=== PATIENT | male | born 1940 | race Caucasian/White ===

== ENCOUNTER 2016-05-04 | Inpatient (IN) | payer MEDICARE, OTHER ==
[~2016-05-04] VITALS: Ht 157.5 cm; Wt 50.8 kg
[~2016-05-04] MED LIST: ACET-868 GT; ALBU2.5V13 NEB; ALLA266C2 TP; AMIN30LI2 GT; ASCO500T10 PO; ASPI-807 GT; CHOL4PAC9 GT; HYDR1SOL TP; IPRA0.2S9 IH; MAGN400O6 GT; MORP100S3 GT; MULT-24 GT; MUPI22OI7 TP; NUTR250L48 GT; PANT40SU2 GT; POLY15DR57 EACHEYE; POLY17PO4 GT; SIME125T52 GT; ZINC220C8 GT
--- NOTE | 2016-05-06 08:30 | NUR ---
Please see resident's previous account [id number] for all assessments and nurses notes. Originally admitted on 02/01/16.
[2016-05-06] MEDS ORDERED: MAGNESIUM HYDROXIDE 30 ML UDC GT PRN (09:57)
[2016-05-06] MEDS ORDERED: SUCRALFATE 1 G/10 ML UDC GT SCH (09:57)
[2016-05-06] MEDS ORDERED: ALBUTEROL FS 2.5 MG/0.5 ML VIAL.NEB NEB SCH (09:57)
[2016-05-06] MEDS ORDERED: IPRATROPIUM NEB FS 0.5 MG/2.5 ML AMPUL.NEB IH SCH (09:57)
[2016-05-06] MEDS ORDERED: HYDROGEN PEROXIDE 480 ML BOTTLE TP PRN (09:57)
[2016-05-06] MEDS ORDERED: ONDANSETRON 4 MG TAB.RAPDIS GT PRN (09:57)
[2016-05-06] MEDS ORDERED: ACETYLCYSTEINE 10% SOLN 400 MG/4 ML VIAL NEB SCH (09:57)
--- NOTE | 2016-05-06 11:13 | NUR ---
Please see resident's previous account [id number] for Social Service assessments, evaluations and notes.
[2016-05-06 12:20] VITALS: BP 110/70
[2016-05-06] MEDS: POLYVINYL ALCOHOL 15 ML BOTTLE EACHEYE SCH ×2 (13:00→21:57)
[2016-05-06] MEDS: SUCRALFATE 1 G/10 ML UDC GT SCH ×3 (13:00→21:57)
[2016-05-06] MEDS: ALBUTEROL FS 2.5 MG/0.5 ML VIAL.NEB NEB SCH ×2 (13:34→20:06)
[2016-05-06] MEDS: IPRATROPIUM NEB FS 0.5 MG/2.5 ML AMPUL.NEB IH SCH ×2 (13:34→20:06)
[2016-05-06] MEDS: ACETYLCYSTEINE 10% SOLN 400 MG/4 ML VIAL NEB SCH ×2 (15:12→23:46)
[2016-05-06] MEDS: CHLORHEXIDINE GLUCONATE 15 ML UDC MM SCH (17:05)
[2016-05-06] MEDS: FIBERSOURCE HN 1,000 ML BOTTLE GT PRN (17:29)
[2016-05-06 19:52] VITALS: BP 107/69
[2016-05-06] MEDS: PANTOPRAZOLE 40 MG/PACK PACK GT SCH (21:57)
[2016-05-06] MEDS: HYDROGEN PEROXIDE 480 ML BOTTLE TP SCH (21:58)
[2016-05-06] MEDS: Z GUARD REMEDY 4 OZ OINT TP SCH (21:58)
[2016-05-07] MEDS: SUCRALFATE 1 G/10 ML UDC GT SCH ×6 (00:03→20:33)
[2016-05-07] MEDS: ALBUTEROL FS 2.5 MG/0.5 ML VIAL.NEB NEB SCH ×4 (01:30→19:33)
[2016-05-07] MEDS: IPRATROPIUM NEB FS 0.5 MG/2.5 ML AMPUL.NEB IH SCH ×4 (01:30→19:33)
[2016-05-07] MEDS: ACETYLCYSTEINE 10% SOLN 400 MG/4 ML VIAL NEB SCH ×3 (01:50→15:13)
--- NOTE | 2016-05-07 02:15 | NUR ---
During repositioning TANK SETTER advised resident keeps turning back to supine position. I advised resident of importance to offload sacrum.Checked back and sacrum.No change noted.placed pillow underneath buttock.Will monitor for skin issues.Left with all needs met.Air mattress functioning and intact.
[2016-05-07] MEDS: POLYVINYL ALCOHOL 15 ML BOTTLE EACHEYE SCH ×3 (05:00→20:33)
[2016-05-07 08:18] VITALS: BP 110/100
[2016-05-07] MEDS: ASCORBIC ACID 500 MG TABLET GT SCH (09:59)
[2016-05-07] MEDS: MULTIVITAMINS,THERAGRAN 1 UDTAB TABLET GT SCH (09:59)
[2016-05-07] MEDS: CHLORHEXIDINE GLUCONATE 15 ML UDC MM SCH ×2 (09:59→16:53)
[2016-05-07] MEDS: Z GUARD REMEDY 4 OZ OINT TP SCH ×2 (09:59→20:33)
[2016-05-07] MEDS: PANTOPRAZOLE 40 MG/PACK PACK GT SCH ×2 (09:59→20:33)
[2016-05-07] MEDS: PROSOURCE / PROSTAT (PYXIS) 30 ML UDC GT SCH (09:59)
[2016-05-07] MEDS: HYDROGEN PEROXIDE 480 ML BOTTLE TP SCH ×2 (09:59→20:33)
[2016-05-07 20:00] VITALS: BP 109/69
[2016-05-07] MEDS: FIBERSOURCE HN 1,000 ML BOTTLE GT PRN (20:33)
[2016-05-08] MEDS: SUCRALFATE 1 G/10 ML UDC GT SCH ×6 (00:45→20:28)
[2016-05-08] MEDS: IPRATROPIUM NEB FS 0.5 MG/2.5 ML AMPUL.NEB IH SCH ×4 (02:18→19:47)
[2016-05-08] MEDS: ALBUTEROL FS 2.5 MG/0.5 ML VIAL.NEB NEB SCH ×4 (02:18→19:47)
[2016-05-08] MEDS: POLYVINYL ALCOHOL 15 ML BOTTLE EACHEYE SCH ×3 (05:24→20:28)
[2016-05-08 07:39] VITALS: BP 99/60
[2016-05-08] MEDS: ACETYLCYSTEINE 10% SOLN 400 MG/4 ML VIAL NEB SCH ×3 (08:01→23:13)
[2016-05-08] MEDS: ASCORBIC ACID 500 MG TABLET GT SCH (09:47)
[2016-05-08] MEDS: PANTOPRAZOLE 40 MG/PACK PACK GT SCH ×2 (09:47→20:28)
[2016-05-08] MEDS: CHLORHEXIDINE GLUCONATE 15 ML UDC MM SCH ×2 (09:47→17:00)
[2016-05-08] MEDS: PROSOURCE / PROSTAT (PYXIS) 30 ML UDC GT SCH (09:47)
[2016-05-08] MEDS: MULTIVITAMINS,THERAGRAN 1 UDTAB TABLET GT SCH (09:47)
[2016-05-08] MEDS: HYDROGEN PEROXIDE 480 ML BOTTLE TP SCH ×2 (09:48→20:28)
[2016-05-08] MEDS: Z GUARD REMEDY 4 OZ OINT TP SCH ×2 (09:48→20:30)
[2016-05-08] MEDS: MORPHINE SULFATE SOLN CONCENTRATED 20 MG/ML GT PRN (19:48)
[2016-05-08 20:14] VITALS: BP 107/69
--- NOTE | 2016-05-08 20:32 | NUR ---
Pt seen by Isidra Ayala,INSURANCE CHECKER no new order.
[2016-05-09] MEDS: SUCRALFATE 1 G/10 ML UDC GT SCH ×6 (00:11→21:53)
[2016-05-09] MEDS: ALBUTEROL FS 2.5 MG/0.5 ML VIAL.NEB NEB SCH ×4 (01:43→19:20)
[2016-05-09] MEDS: IPRATROPIUM NEB FS 0.5 MG/2.5 ML AMPUL.NEB IH SCH ×4 (01:43→19:20)
[2016-05-09] MEDS: POLYVINYL ALCOHOL 15 ML BOTTLE EACHEYE SCH ×3 (05:17→21:53)
[2016-05-09] MEDS: ACETYLCYSTEINE 10% SOLN 400 MG/4 ML VIAL NEB SCH ×3 (07:08→22:45)
[2016-05-09 07:52] VITALS: BP_SYST 95; BP_SYST 96; BP_DIAS 62; BP_DIAS 69
[2016-05-09] MEDS: ASCORBIC ACID 500 MG TABLET GT SCH (09:30)
[2016-05-09] MEDS: PANTOPRAZOLE 40 MG/PACK PACK GT SCH ×2 (09:30→21:53)
[2016-05-09] MEDS: PROSOURCE / PROSTAT (PYXIS) 30 ML UDC GT SCH (09:30)
[2016-05-09] MEDS: HYDROGEN PEROXIDE 480 ML BOTTLE TP SCH ×2 (09:30→21:53)
[2016-05-09] MEDS: Z GUARD REMEDY 4 OZ OINT TP SCH ×2 (09:30→21:53)
[2016-05-09] MEDS: MULTIVITAMINS,THERAGRAN 1 UDTAB TABLET GT SCH (09:30)
[2016-05-09] MEDS: CHLORHEXIDINE GLUCONATE 15 ML UDC MM SCH ×2 (09:30→16:28)
[2016-05-09 19:44] VITALS: BP 115/70
[2016-05-09] MEDS: MORPHINE SULFATE SOLN CONCENTRATED 20 MG/ML GT PRN (21:54)
[2016-05-10] MEDS: SUCRALFATE 1 G/10 ML UDC GT SCH ×6 (00:09→21:35)
[2016-05-10] MEDS: ALBUTEROL FS 2.5 MG/0.5 ML VIAL.NEB NEB SCH ×4 (00:54→19:24)
[2016-05-10] MEDS: IPRATROPIUM NEB FS 0.5 MG/2.5 ML AMPUL.NEB IH SCH ×4 (00:54→19:24)
[2016-05-10] MEDS: POLYVINYL ALCOHOL 15 ML BOTTLE EACHEYE SCH ×3 (05:58→21:35)
[2016-05-10 07:34] VITALS: BP 129/79
[2016-05-10] MEDS: ACETYLCYSTEINE 10% SOLN 400 MG/4 ML VIAL NEB SCH ×3 (07:54→22:32)
[2016-05-10] MEDS: ASCORBIC ACID 500 MG TABLET GT SCH (08:52)
[2016-05-10] MEDS: PANTOPRAZOLE 40 MG/PACK PACK GT SCH ×2 (08:52→21:35)
[2016-05-10] MEDS: PROSOURCE / PROSTAT (PYXIS) 30 ML UDC GT SCH (08:52)
[2016-05-10] MEDS: MULTIVITAMINS,THERAGRAN 1 UDTAB TABLET GT SCH (08:52)
[2016-05-10] MEDS: CHLORHEXIDINE GLUCONATE 15 ML UDC MM SCH ×2 (08:53→17:06)
[2016-05-10] MEDS: HYDROGEN PEROXIDE 480 ML BOTTLE TP SCH ×2 (09:00→21:35)
[2016-05-10] MEDS: Z GUARD REMEDY 4 OZ OINT TP SCH ×2 (09:00→21:36)
[2016-05-10 20:01] VITALS: BP 92/59
[2016-05-10] MEDS: MORPHINE SULFATE SOLN CONCENTRATED 20 MG/ML GT PRN (21:53)
[2016-05-10] MEDS: FIBERSOURCE HN 1,000 ML BOTTLE GT PRN (21:53)
[2016-05-11] MEDS: SUCRALFATE 1 G/10 ML UDC GT SCH ×6 (01:00→20:29)
[2016-05-11] MEDS: ACETYLCYSTEINE 10% SOLN 400 MG/4 ML VIAL NEB SCH ×3 (01:26→14:46)
[2016-05-11] MEDS: IPRATROPIUM NEB FS 0.5 MG/2.5 ML AMPUL.NEB IH SCH ×4 (01:47→19:24)
[2016-05-11] MEDS: ALBUTEROL FS 2.5 MG/0.5 ML VIAL.NEB NEB SCH ×4 (01:47→19:24)
[2016-05-11] MEDS: POLYVINYL ALCOHOL 15 ML BOTTLE EACHEYE SCH ×3 (05:27→20:29)
--- NOTE | 2016-05-11 07:49 | NUR ---
RT PATIENT RECEIVED TRACHED ON MECHANICAL VENTILATOR WITH SETTINGS SET PER MD RACHEAL OLIVERA. VENT ALARMS CHECKED + AUDIBLE. VENT PLUGGED INTO RED OUTLET. CUFF PRESSURE CHECKED FROG CATCHER. RESP TX'S GIVEN ORDERED RACHEAL OLIVERA. TRACH SECURE AND IN PROPER POSITION. SX'D WITH MOD AMT PALE SEMITHICK SECRETIONS. B/S DIM RHONCHI. PATIENT IN NO DISTRESS OR SOB AT THIS TIME. BACK UP TRACH AND AMBU BAG AT [facility]. CONTINUE CURRENT PLAN OF RESP CARE. Addendum: 05/11/16 at 0902 by DIALLO SEGURA RT Amended: Links added.
[2016-05-11 08:07] VITALS: BP 108/69
[2016-05-11] MEDS: ASCORBIC ACID 500 MG TABLET GT SCH (09:00)
[2016-05-11] MEDS: Z GUARD REMEDY 4 OZ OINT TP SCH ×2 (09:00→20:29)
[2016-05-11] MEDS: HYDROGEN PEROXIDE 480 ML BOTTLE TP SCH ×2 (09:00→20:29)
[2016-05-11] MEDS: PROSOURCE / PROSTAT (PYXIS) 30 ML UDC GT SCH (09:00)
[2016-05-11] MEDS: MULTIVITAMINS,THERAGRAN 1 UDTAB TABLET GT SCH (09:00)
[2016-05-11] MEDS: PANTOPRAZOLE 40 MG/PACK PACK GT SCH ×2 (09:00→20:29)
[2016-05-11] MEDS: CHLORHEXIDINE GLUCONATE 15 ML UDC MM SCH ×2 (09:00→16:42)
--- NOTE | 2016-05-11 15:30 | NUR ---
RT END OF SHIFT SUMMARY: PATIENT REMAINED STABLE THROUGHOUT SHIFT NO SOB OR DISTRESS Addendum: 05/12/16 at 0820 by DIALLO SEGURA RT Amended: Links added.
[2016-05-11] MEDS: FIBERSOURCE HN 1,000 ML BOTTLE GT PRN (16:43)
[2016-05-11 20:19] VITALS: BP 131/69
[2016-05-12] MEDS: SUCRALFATE 1 G/10 ML UDC GT SCH ×6 (00:34→20:18)
[2016-05-12] MEDS: IPRATROPIUM NEB FS 0.5 MG/2.5 ML AMPUL.NEB IH SCH ×4 (01:26→19:33)
[2016-05-12] MEDS: ALBUTEROL FS 2.5 MG/0.5 ML VIAL.NEB NEB SCH ×4 (01:26→19:33)
[2016-05-12] MEDS: POLYVINYL ALCOHOL 15 ML BOTTLE EACHEYE SCH ×3 (05:38→20:18)
[2016-05-12] MEDS: ACETYLCYSTEINE 10% SOLN 400 MG/4 ML VIAL NEB SCH ×3 (07:40→23:34)
[2016-05-12 08:09] VITALS: BP 121/80
--- NOTE | 2016-05-12 08:18 | NUR ---
RT PATIENT RECEIVED TRACHED ON MECHANICAL VENTILATOR WITH SETTINGS SET PER MD RACHEAL OLIVERA. VENT ALARMS CHECKED + AUDIBLE. VENT PLUGGED INTO RED OUTLET. CUFF PRESSURE CHECKED FLEET OPERATIONS MANAGER. RESP TX'S GIVEN ORDERED RACHEAL OLIVERA. TRACH SECURE AND IN PROPER POSITION. SX'D WITH MOD AMT PALE SEMITHICK SECRETIONS. B/S DIM RHONCHI. PATIENT IN NO DISTRESS OR SOB AT THIS TIME. BACK UP TRACH AND AMBU BAG AT [facility]. CONTINUE CURRENT PLAN OF RESP CARE. Addendum: 05/12/16 at 0818 by DIALLO SEGURA RT Amended: Links added.
[2016-05-12] MEDS: CHLORHEXIDINE GLUCONATE 15 ML UDC MM SCH ×2 (09:00→17:30)
[2016-05-12] MEDS: ASCORBIC ACID 500 MG TABLET GT SCH (09:13)
[2016-05-12] MEDS: MULTIVITAMINS,THERAGRAN 1 UDTAB TABLET GT SCH (09:13)
[2016-05-12] MEDS: PROSOURCE / PROSTAT (PYXIS) 30 ML UDC GT SCH (09:13)
[2016-05-12] MEDS: PANTOPRAZOLE 40 MG/PACK PACK GT SCH ×2 (09:13→20:18)
[2016-05-12] MEDS: HYDROGEN PEROXIDE 480 ML BOTTLE TP SCH ×2 (11:15→20:18)
[2016-05-12] MEDS: Z GUARD REMEDY 4 OZ OINT TP SCH ×2 (11:15→20:18)
[2016-05-12] MEDS: FIBERSOURCE HN 1,000 ML BOTTLE GT PRN (20:18)
[2016-05-12 20:25] VITALS: BP 124/78
[2016-05-13] MEDS: SUCRALFATE 1 G/10 ML UDC GT SCH ×6 (00:40→20:27)
[2016-05-13] MEDS: IPRATROPIUM NEB FS 0.5 MG/2.5 ML AMPUL.NEB IH SCH ×4 (00:52→19:30)
[2016-05-13] MEDS: ALBUTEROL FS 2.5 MG/0.5 ML VIAL.NEB NEB SCH ×4 (00:52→19:30)
[2016-05-13] MEDS: POLYVINYL ALCOHOL 15 ML BOTTLE EACHEYE SCH ×3 (05:40→20:27)
[2016-05-13] MEDS: ACETYLCYSTEINE 10% SOLN 400 MG/4 ML VIAL NEB SCH ×3 (07:26→23:30)
[2016-05-13 08:11] VITALS: BP 112/66
[2016-05-13] MEDS: PROSOURCE / PROSTAT (PYXIS) 30 ML UDC GT SCH (09:07)
[2016-05-13] MEDS: MULTIVITAMINS,THERAGRAN 1 UDTAB TABLET GT SCH (09:08)
[2016-05-13] MEDS: CHLORHEXIDINE GLUCONATE 15 ML UDC MM SCH ×2 (09:08→17:07)
[2016-05-13] MEDS: ASCORBIC ACID 500 MG TABLET GT SCH (09:08)
[2016-05-13] MEDS: PANTOPRAZOLE 40 MG/PACK PACK GT SCH ×2 (09:08→20:27)
[2016-05-13] MEDS: Z GUARD REMEDY 4 OZ OINT TP SCH ×2 (11:30→20:28)
[2016-05-13] MEDS: HYDROGEN PEROXIDE 480 ML BOTTLE TP SCH ×2 (11:30→20:27)
[2016-05-13] MEDS: FIBERSOURCE HN 1,000 ML BOTTLE GT PRN ×2 (11:40→22:27)
--- NOTE | 2016-05-13 18:42 | NUR ---
Late Entry for 05/12/16 @ 1800 - GT flushing 700ml.
[2016-05-13 20:36] VITALS: BP 114/75
[2016-05-14] MEDS: SUCRALFATE 1 G/10 ML UDC GT SCH ×6 (00:23→21:11)
[2016-05-14] MEDS: ALBUTEROL FS 2.5 MG/0.5 ML VIAL.NEB NEB SCH ×4 (01:16→20:19)
[2016-05-14] MEDS: IPRATROPIUM NEB FS 0.5 MG/2.5 ML AMPUL.NEB IH SCH ×4 (01:16→20:19)
[2016-05-14] MEDS: POLYVINYL ALCOHOL 15 ML BOTTLE EACHEYE SCH ×3 (05:58→21:11)
[2016-05-14 07:48] VITALS: BP 140/77
[2016-05-14] MEDS: ACETYLCYSTEINE 10% SOLN 400 MG/4 ML VIAL NEB SCH ×3 (08:31→23:42)
[2016-05-14] MEDS: ACETAMINOPHEN 650 MG/20 ML UDC- FOR SA PATIENTS ONLY GT PRN (08:40)
[2016-05-14] MEDS: PANTOPRAZOLE 40 MG/PACK PACK GT SCH ×2 (08:40→21:11)
[2016-05-14] MEDS: CHLORHEXIDINE GLUCONATE 15 ML UDC MM SCH ×2 (08:40→17:20)
[2016-05-14] MEDS: PROSOURCE / PROSTAT (PYXIS) 30 ML UDC GT SCH (08:40)
[2016-05-14] MEDS: ASCORBIC ACID 500 MG TABLET GT SCH (08:40)
[2016-05-14] MEDS: HYDROGEN PEROXIDE 480 ML BOTTLE TP SCH ×2 (08:40→21:11)
[2016-05-14] MEDS: MULTIVITAMINS,THERAGRAN 1 UDTAB TABLET GT SCH (08:40)
[2016-05-14] MEDS: Z GUARD REMEDY 4 OZ OINT TP SCH ×3 (09:00→21:11)
[2016-05-14] MEDS: FIBERSOURCE HN 1,000 ML BOTTLE GT PRN (12:20)
[2016-05-14 19:51] VITALS: BP 104/66
[2016-05-15] MEDS: SUCRALFATE 1 G/10 ML UDC GT SCH ×6 (00:27→21:00)
[2016-05-15] MEDS: ALBUTEROL FS 2.5 MG/0.5 ML VIAL.NEB NEB SCH ×4 (01:05→19:46)
[2016-05-15] MEDS: IPRATROPIUM NEB FS 0.5 MG/2.5 ML AMPUL.NEB IH SCH ×4 (01:05→19:46)
[2016-05-15] MEDS: POLYVINYL ALCOHOL 15 ML BOTTLE EACHEYE SCH ×3 (05:27→21:00)
[2016-05-15] MEDS: ACETYLCYSTEINE 10% SOLN 400 MG/4 ML VIAL NEB SCH ×3 (07:35→23:30)
[2016-05-15 07:46] VITALS: BP 114/72
[2016-05-15] MEDS: HYDROGEN PEROXIDE 480 ML BOTTLE TP SCH ×2 (09:00→21:00)
[2016-05-15] MEDS: MULTIVITAMINS,THERAGRAN 1 UDTAB TABLET GT SCH (09:00)
[2016-05-15] MEDS: PANTOPRAZOLE 40 MG/PACK PACK GT SCH ×2 (09:00→21:00)
[2016-05-15] MEDS: CHLORHEXIDINE GLUCONATE 15 ML UDC MM SCH ×2 (09:00→17:32)
[2016-05-15] MEDS: Z GUARD REMEDY 4 OZ OINT TP SCH ×4 (09:00→21:00)
[2016-05-15] MEDS: PROSOURCE / PROSTAT (PYXIS) 30 ML UDC GT SCH (09:00)
[2016-05-15] MEDS: ASCORBIC ACID 500 MG TABLET GT SCH (09:00)
[2016-05-15 21:23] VITALS: BP 118/78
[2016-05-16] MEDS: ALBUTEROL FS 2.5 MG/0.5 ML VIAL.NEB NEB SCH ×4 (00:36→19:42)
[2016-05-16] MEDS: IPRATROPIUM NEB FS 0.5 MG/2.5 ML AMPUL.NEB IH SCH ×4 (00:36→19:42)
[2016-05-16] MEDS: SUCRALFATE 1 G/10 ML UDC GT SCH ×6 (01:36→20:01)
[2016-05-16] MEDS: FIBERSOURCE HN 1,000 ML BOTTLE GT PRN ×2 (02:43→20:03)
[2016-05-16] MEDS: POLYVINYL ALCOHOL 15 ML BOTTLE EACHEYE SCH ×3 (04:58→20:01)
[2016-05-16] MEDS: MORPHINE SULFATE SOLN CONCENTRATED 20 MG/ML GT PRN (05:27)
[2016-05-16] MEDS: ACETYLCYSTEINE 10% SOLN 400 MG/4 ML VIAL NEB SCH ×2 (07:30→14:51)
--- NOTE | 2016-05-16 07:35 | NUR ---
RT PATIENT RECEIVED TRACHED ON MECHANICAL VENTILATOR WITH SETTINGS SET PER MD RACHEAL OLIVERA. VENT ALARMS CHECKED + AUDIBLE. VENT PLUGGED INTO RED OUTLET. CUFF PRESSURE CHECKED BREAKER LAYER. RESP TX'S GIVEN ORDERED RACHEAL OLIVERA. TRACH SECURE AND IN PROPER POSITION. SX'D WITH MOD AMT PALE SEMITHICK SECRETIONS. B/S DIM RHONCHI. PATIENT IN NO DISTRESS OR SOB AT THIS TIME. BACK UP TRACH AND AMBU BAG AT [facility]. CONTINUE CURRENT PLAN OF RESP CARE. Addendum: 05/16/16 at 1040 by DIALLO SEGURA RT Amended: Links added.
[2016-05-16 07:38] VITALS: BP 103/68
[2016-05-16] MEDS: MULTIVITAMINS,THERAGRAN 1 UDTAB TABLET GT SCH (09:54)
[2016-05-16] MEDS: PROSOURCE / PROSTAT (PYXIS) 30 ML UDC GT SCH (09:54)
[2016-05-16] MEDS: CHLORHEXIDINE GLUCONATE 15 ML UDC MM SCH ×2 (09:54→16:56)
[2016-05-16] MEDS: ASCORBIC ACID 500 MG TABLET GT SCH (09:54)
[2016-05-16] MEDS: PANTOPRAZOLE 40 MG/PACK PACK GT SCH ×2 (09:54→20:01)
[2016-05-16] MEDS: Z GUARD REMEDY 4 OZ OINT TP SCH ×4 (09:55→20:02)
[2016-05-16] MEDS: HYDROGEN PEROXIDE 480 ML BOTTLE TP SCH ×2 (09:55→20:01)
--- NOTE | 2016-05-16 14:10 | NUR ---
INTERDISCIPLINARY TEAM CONFERENCE (IDT) was held today. Resident's dtr unable to attend. Dr. Reese and the interdisciplinary team reviewed the current plan of care in detail. New orders were reviewed. Mucomyst was dc'd and weight has slightly increased from last week. Resident is tolerating his feedings well and no other changes were noted.
--- NOTE | 2016-05-16 14:51 | NUR ---
MUCOMYST TX D/C'D BY DOCTOR JOSHUA. CHARGE NURSE PREMA Dejesus TOOK ORDER VERBALLY BY DR JOSHUA.
[2016-05-16 19:44] VITALS: BP 108/64
[2016-05-17] MEDS: SUCRALFATE 1 G/10 ML UDC GT SCH ×6 (01:02→20:37)
[2016-05-17] MEDS: IPRATROPIUM NEB FS 0.5 MG/2.5 ML AMPUL.NEB IH SCH ×4 (01:18→20:15)
[2016-05-17] MEDS: ALBUTEROL FS 2.5 MG/0.5 ML VIAL.NEB NEB SCH ×4 (01:18→20:15)
[2016-05-17] MEDS: POLYVINYL ALCOHOL 15 ML BOTTLE EACHEYE SCH ×3 (05:23→20:37)
[2016-05-17 07:58] VITALS: BP 112/73
[2016-05-17] MEDS: MULTIVITAMINS,THERAGRAN 1 UDTAB TABLET GT SCH (09:12)
[2016-05-17] MEDS: PROSOURCE / PROSTAT (PYXIS) 30 ML UDC GT SCH (09:12)
[2016-05-17] MEDS: CHLORHEXIDINE GLUCONATE 15 ML UDC MM SCH ×2 (09:12→17:31)
[2016-05-17] MEDS: PANTOPRAZOLE 40 MG/PACK PACK GT SCH ×2 (09:12→20:37)
[2016-05-17] MEDS: ASCORBIC ACID 500 MG TABLET GT SCH (09:12)
[2016-05-17] MEDS: HYDROGEN PEROXIDE 480 ML BOTTLE TP SCH ×2 (09:12→20:37)
[2016-05-17] MEDS: Z GUARD REMEDY 4 OZ OINT TP SCH ×4 (09:12→20:37)
--- NOTE | 2016-05-17 16:00 | NUR ---
Received a telephone call from resident's sister Elizabeth asking about his condition. She was made aware that at times, he get into the nurses, he refuses care, suctioning and sometimes calls us "idiot" She shared "my brother is a little fighter" and added that she can't imagine what he is going through, he could move and couldn't talk. She said that she will send him her picture. Imform Mr. Lynn that his sister called to say jose rafael. He smiled in appreciation of the message.
[2016-05-17 19:56] VITALS: BP 95/64
[2016-05-17] MEDS: FIBERSOURCE HN 1,000 ML BOTTLE GT PRN (22:23)
[2016-05-17] MEDS: MORPHINE SULFATE SOLN CONCENTRATED 20 MG/ML GT PRN (22:24)
[2016-05-18] MEDS: SUCRALFATE 1 G/10 ML UDC GT SCH ×6 (01:32→21:00)
[2016-05-18] MEDS: ALBUTEROL FS 2.5 MG/0.5 ML VIAL.NEB NEB SCH ×4 (01:51→19:18)
[2016-05-18] MEDS: IPRATROPIUM NEB FS 0.5 MG/2.5 ML AMPUL.NEB IH SCH ×4 (01:51→19:18)
[2016-05-18] MEDS: POLYVINYL ALCOHOL 15 ML BOTTLE EACHEYE SCH ×3 (05:10→21:00)
[2016-05-18 08:05] VITALS: BP 108/64
[2016-05-18] MEDS: HYDROGEN PEROXIDE 480 ML BOTTLE TP SCH ×2 (09:00→21:01)
[2016-05-18] MEDS: Z GUARD REMEDY 4 OZ OINT TP SCH ×4 (09:00→21:01)
[2016-05-18] MEDS: ASCORBIC ACID 500 MG TABLET GT SCH (09:53)
[2016-05-18] MEDS: PROSOURCE / PROSTAT (PYXIS) 30 ML UDC GT SCH (09:53)
[2016-05-18] MEDS: MULTIVITAMINS,THERAGRAN 1 UDTAB TABLET GT SCH (09:53)
[2016-05-18] MEDS: CHLORHEXIDINE GLUCONATE 15 ML UDC MM SCH ×2 (09:53→16:26)
[2016-05-18] MEDS: PANTOPRAZOLE 40 MG/PACK PACK GT SCH ×2 (09:54→21:00)
[2016-05-18 19:55] VITALS: BP 90/59
[2016-05-19] MEDS: SUCRALFATE 1 G/10 ML UDC GT SCH ×6 (00:09→21:10)
[2016-05-19] MEDS: ALBUTEROL FS 2.5 MG/0.5 ML VIAL.NEB NEB SCH ×4 (01:14→19:25)
[2016-05-19] MEDS: IPRATROPIUM NEB FS 0.5 MG/2.5 ML AMPUL.NEB IH SCH ×4 (01:14→19:25)
[2016-05-19] MEDS: POLYVINYL ALCOHOL 15 ML BOTTLE EACHEYE SCH ×3 (05:12→21:10)
[2016-05-19 08:00] VITALS: BP 118/71
[2016-05-19] MEDS: PROSOURCE / PROSTAT (PYXIS) 30 ML UDC GT SCH (09:53)
[2016-05-19] MEDS: Z GUARD REMEDY 4 OZ OINT TP SCH ×4 (09:54→21:10)
[2016-05-19] MEDS: HYDROGEN PEROXIDE 480 ML BOTTLE TP SCH ×2 (09:54→21:10)
[2016-05-19] MEDS: ASCORBIC ACID 500 MG TABLET GT SCH (09:54)
[2016-05-19] MEDS: PANTOPRAZOLE 40 MG/PACK PACK GT SCH ×2 (09:54→21:10)
[2016-05-19] MEDS: CHLORHEXIDINE GLUCONATE 15 ML UDC MM SCH ×2 (09:54→17:01)
[2016-05-19] MEDS: MULTIVITAMINS,THERAGRAN 1 UDTAB TABLET GT SCH (09:54)
--- NOTE | 2016-05-19 11:27 | NUR ---
Resident daughter Olivia Olivo stated that she will be here tomorrow. She shared that she was interested in becoming a DPOA for the patient but will contact the [facility] [place] as resident does not have his SSC or certificate. Olivia stated that she will keep the SW posted as to what the [facility] tells her. Olivia also stated that she would be interested in completing an advanced directive for the patient, as he is still able to currently make his wishes known. GONZALO notified her that she can either have two witnesses present or have a notary come and complete the form with her and the resident. GONZALO informed her that notary has a travel fee of at least $65.00 + $15.00 per each signature that is needed. GONZALO called [employer] and [employer] ([employer]- [phone]) for this information. GONZALO stated that she also needs to arrange for the Ombudsman or patient advocate to come and be a witness. Therefore, GONZALO informed Olivia that she needs to know if she is able to arrange for two unrelated witnesses to come with her to the hospital so she can schedule for the ombudsman to come. Olivia stated that she will try to arrange for two witnesses so that the notary does not have to come and will keep the SW posted so she can contact the ombudsman. Will await response from daughter. Addendum: 05/21/16 at 0911 by CAROLINE SÁNCHEZ Olivia Olivo (dtamanda) reported 05/20/2016 that she was unable to gather her witnesses and will keep the social security assessor posted.
[2016-05-19 19:47] VITALS: BP 111/67
[2016-05-20] MEDS: SUCRALFATE 1 G/10 ML UDC GT SCH ×6 (01:00→20:38)
[2016-05-20] MEDS: IPRATROPIUM NEB FS 0.5 MG/2.5 ML AMPUL.NEB IH SCH ×4 (01:33→19:34)
[2016-05-20] MEDS: ALBUTEROL FS 2.5 MG/0.5 ML VIAL.NEB NEB SCH ×4 (01:34→19:35)
[2016-05-20] MEDS: POLYVINYL ALCOHOL 15 ML BOTTLE EACHEYE SCH ×3 (05:03→20:38)
[2016-05-20 08:07] VITALS: BP 117/74
[2016-05-20] MEDS: Z GUARD REMEDY 4 OZ OINT TP SCH ×2 (09:00→20:39)
[2016-05-20] MEDS: HYDROGEN PEROXIDE 480 ML BOTTLE TP SCH ×2 (09:00→20:38)
[2016-05-20] MEDS: PROSOURCE / PROSTAT (PYXIS) 30 ML UDC GT SCH (09:45)
[2016-05-20] MEDS: MULTIVITAMINS,THERAGRAN 1 UDTAB TABLET GT SCH (09:46)
[2016-05-20] MEDS: PANTOPRAZOLE 40 MG/PACK PACK GT SCH ×2 (09:46→20:38)
[2016-05-20] MEDS: ASCORBIC ACID 500 MG TABLET GT SCH (09:47)
[2016-05-20] MEDS: CHLORHEXIDINE GLUCONATE 15 ML UDC MM SCH ×2 (09:47→17:42)
[2016-05-20] MEDS: MORPHINE SULFATE SOLN CONCENTRATED 20 MG/ML GT PRN (15:56)
[2016-05-20 19:40] VITALS: BP 104/62
[2016-05-21] MEDS: SUCRALFATE 1 G/10 ML UDC GT SCH ×6 (00:19→20:26)
[2016-05-21] MEDS: ALBUTEROL FS 2.5 MG/0.5 ML VIAL.NEB NEB SCH ×4 (01:24→19:52)
[2016-05-21] MEDS: IPRATROPIUM NEB FS 0.5 MG/2.5 ML AMPUL.NEB IH SCH ×4 (01:24→19:52)
[2016-05-21] MEDS: POLYVINYL ALCOHOL 15 ML BOTTLE EACHEYE SCH ×3 (05:57→20:26)
[2016-05-21 07:38] VITALS: BP 120/64
[2016-05-21 07:42] VITALS: BP_SYST 110; BP_SYST 120; BP_DIAS 64; BP_DIAS 73
[2016-05-21] MEDS: ASCORBIC ACID 500 MG TABLET GT SCH (09:59)
[2016-05-21] MEDS: PROSOURCE / PROSTAT (PYXIS) 30 ML UDC GT SCH (09:59)
[2016-05-21] MEDS: HYDROGEN PEROXIDE 480 ML BOTTLE TP SCH ×2 (09:59→21:32)
[2016-05-21] MEDS: Z GUARD REMEDY 4 OZ OINT TP SCH ×2 (09:59→21:32)
[2016-05-21] MEDS: PANTOPRAZOLE 40 MG/PACK PACK GT SCH ×2 (09:59→20:26)
[2016-05-21] MEDS: CHLORHEXIDINE GLUCONATE 15 ML UDC MM SCH ×2 (09:59→17:37)
[2016-05-21] MEDS: MULTIVITAMINS,THERAGRAN 1 UDTAB TABLET GT SCH (09:59)
[2016-05-21] MEDS: ACETAMINOPHEN 650 MG/20 ML UDC- FOR SA PATIENTS ONLY GT PRN (12:55)
[2016-05-21 20:06] VITALS: BP 110/71
[2016-05-21] MEDS: FIBERSOURCE HN 1,000 ML BOTTLE GT PRN (20:27)
[2016-05-22] MEDS: SUCRALFATE 1 G/10 ML UDC GT SCH ×6 (00:35→20:06)
[2016-05-22] MEDS: IPRATROPIUM NEB FS 0.5 MG/2.5 ML AMPUL.NEB IH SCH ×4 (02:33→19:30)
[2016-05-22] MEDS: ALBUTEROL FS 2.5 MG/0.5 ML VIAL.NEB NEB SCH ×4 (02:33→19:30)
[2016-05-22] MEDS: POLYVINYL ALCOHOL 15 ML BOTTLE EACHEYE SCH ×3 (05:59→20:05)
[2016-05-22 07:36] VITALS: BP 109/69
[2016-05-22] MEDS: PROSOURCE / PROSTAT (PYXIS) 30 ML UDC GT SCH (08:34)
[2016-05-22] MEDS: PANTOPRAZOLE 40 MG/PACK PACK GT SCH ×2 (08:35→20:06)
[2016-05-22] MEDS: MULTIVITAMINS,THERAGRAN 1 UDTAB TABLET GT SCH (08:36)
[2016-05-22] MEDS: ASCORBIC ACID 500 MG TABLET GT SCH (08:36)
[2016-05-22] MEDS: CHLORHEXIDINE GLUCONATE 15 ML UDC MM SCH ×2 (08:36→16:16)
[2016-05-22] MEDS: HYDROGEN PEROXIDE 480 ML BOTTLE TP SCH ×2 (09:00→20:06)
[2016-05-22] MEDS: Z GUARD REMEDY 4 OZ OINT TP SCH ×2 (09:00→20:06)
--- NOTE | 2016-05-22 14:30 | NUR ---
Seen and examined by Isidra Ayala NP, no new order given.
[2016-05-22] MEDS: MORPHINE SULFATE SOLN CONCENTRATED 20 MG/ML GT PRN (20:06)
[2016-05-22 20:12] VITALS: BP 115/68
[2016-05-23] MEDS: SUCRALFATE 1 G/10 ML UDC GT SCH ×6 (00:20→21:52)
[2016-05-23] MEDS: FIBERSOURCE HN 1,000 ML BOTTLE GT PRN ×2 (00:20→15:18)
[2016-05-23] MEDS: IPRATROPIUM NEB FS 0.5 MG/2.5 ML AMPUL.NEB IH SCH ×4 (02:16→19:48)
[2016-05-23] MEDS: ALBUTEROL FS 2.5 MG/0.5 ML VIAL.NEB NEB SCH ×4 (02:17→19:48)
[2016-05-23] MEDS: POLYVINYL ALCOHOL 15 ML BOTTLE EACHEYE SCH ×3 (05:14→21:52)
[2016-05-23 07:52] VITALS: BP 90/54
[2016-05-23] MEDS: HYDROGEN PEROXIDE 480 ML BOTTLE TP SCH ×2 (09:39→21:52)
[2016-05-23] MEDS: MULTIVITAMINS,THERAGRAN 1 UDTAB TABLET GT SCH (09:39)
[2016-05-23] MEDS: ASCORBIC ACID 500 MG TABLET GT SCH (09:39)
[2016-05-23] MEDS: PROSOURCE / PROSTAT (PYXIS) 30 ML UDC GT SCH (09:39)
[2016-05-23] MEDS: CHLORHEXIDINE GLUCONATE 15 ML UDC MM SCH ×2 (09:39→17:35)
[2016-05-23] MEDS: PANTOPRAZOLE 40 MG/PACK PACK GT SCH ×2 (09:39→21:52)
[2016-05-23] MEDS: Z GUARD REMEDY 4 OZ OINT TP SCH ×2 (09:39→21:52)
[2016-05-23] MEDS: ACETAMINOPHEN 650 MG/20 ML UDC- FOR SA PATIENTS ONLY GT PRN (09:40)
--- NOTE | 2016-05-23 14:05 | NUR ---
INTERDISCIPLINARY PLAN OF CARE CONFERENCE was held today. Resident's dtr unable to attend. Dr. Reese and the interdisciplinary team reviewed the current plan of care in detail. New orders were reviewed and no other changes were noted. PICC line was dc'd 05/22/16. Resident has a weight gain of 1lb.
[2016-05-23 20:40] VITALS: BP_SYST 108; BP_SYST 98; BP_DIAS 55; BP_DIAS 60
[2016-05-24] MEDS: SUCRALFATE 1 G/10 ML UDC GT SCH ×6 (00:11→20:13)
[2016-05-24] MEDS: IPRATROPIUM NEB FS 0.5 MG/2.5 ML AMPUL.NEB IH SCH ×4 (00:53→19:42)
[2016-05-24] MEDS: ALBUTEROL FS 2.5 MG/0.5 ML VIAL.NEB NEB SCH ×4 (00:53→19:42)
[2016-05-24] MEDS: POLYVINYL ALCOHOL 15 ML BOTTLE EACHEYE SCH ×3 (05:31→20:13)
[2016-05-24] MEDS: FIBERSOURCE HN 1,000 ML BOTTLE GT PRN ×2 (05:49→21:38)
[2016-05-24 08:00] VITALS: BP 109/63
[2016-05-24] MEDS: MULTIVITAMINS,THERAGRAN 1 UDTAB TABLET GT SCH (09:15)
[2016-05-24] MEDS: PROSOURCE / PROSTAT (PYXIS) 30 ML UDC GT SCH (09:15)
[2016-05-24] MEDS: CHLORHEXIDINE GLUCONATE 15 ML UDC MM SCH ×2 (09:16→17:28)
[2016-05-24] MEDS: HYDROGEN PEROXIDE 480 ML BOTTLE TP SCH ×2 (09:16→20:14)
[2016-05-24] MEDS: Z GUARD REMEDY 4 OZ OINT TP SCH ×2 (09:16→20:14)
[2016-05-24] MEDS: ASCORBIC ACID 500 MG TABLET GT SCH (09:16)
[2016-05-24] MEDS: ACETAMINOPHEN 650 MG/20 ML UDC- FOR SA PATIENTS ONLY GT PRN (09:18)
[2016-05-24 19:52] VITALS: BP 124/65
[2016-05-24] MEDS: MORPHINE SULFATE SOLN CONCENTRATED 20 MG/ML GT PRN (23:24)
[2016-05-25] MEDS: IPRATROPIUM NEB FS 0.5 MG/2.5 ML AMPUL.NEB IH SCH ×4 (00:43→19:17)
[2016-05-25] MEDS: ALBUTEROL FS 2.5 MG/0.5 ML VIAL.NEB NEB SCH ×4 (00:43→19:17)
[2016-05-25] MEDS: POLYVINYL ALCOHOL 15 ML BOTTLE EACHEYE SCH ×3 (05:01→20:22)
[2016-05-25] MEDS: SUCRALFATE 1 G/10 ML UDC GT SCH ×6 (05:01→20:22)
[2016-05-25] MEDS: OMEPRAZOLE 20 MG CAPSULE.DR GT SCH (05:02)
[2016-05-25 07:44] VITALS: BP 111/57
[2016-05-25] MEDS: HYDROGEN PEROXIDE 480 ML BOTTLE TP SCH ×2 (09:00→20:22)
[2016-05-25] MEDS: Z GUARD REMEDY 4 OZ OINT TP SCH ×2 (09:00→20:23)
[2016-05-25] MEDS: PROSOURCE / PROSTAT (PYXIS) 30 ML UDC GT SCH (09:28)
[2016-05-25] MEDS: ASCORBIC ACID 500 MG TABLET GT SCH (09:28)
[2016-05-25] MEDS: MULTIVITAMINS,THERAGRAN 1 UDTAB TABLET GT SCH (09:28)
[2016-05-25] MEDS: CHLORHEXIDINE GLUCONATE 15 ML UDC MM SCH ×2 (09:28→17:06)
[2016-05-25] MEDS: MORPHINE SULFATE SOLN CONCENTRATED 20 MG/ML GT PRN (19:33)
[2016-05-25 20:32] VITALS: BP 121/64
[2016-05-26] MEDS: SUCRALFATE 1 G/10 ML UDC GT SCH ×6 (00:18→21:28)
[2016-05-26] MEDS: FIBERSOURCE HN 1,000 ML BOTTLE GT PRN (00:19)
[2016-05-26] MEDS: ALBUTEROL FS 2.5 MG/0.5 ML VIAL.NEB NEB SCH ×4 (01:18→19:30)
[2016-05-26] MEDS: IPRATROPIUM NEB FS 0.5 MG/2.5 ML AMPUL.NEB IH SCH ×4 (01:18→19:30)
[2016-05-26] MEDS: POLYVINYL ALCOHOL 15 ML BOTTLE EACHEYE SCH ×3 (05:00→21:28)
[2016-05-26] MEDS: OMEPRAZOLE 20 MG CAPSULE.DR GT SCH (06:14)
[2016-05-26 09:02] VITALS: BP 111/69
[2016-05-26] MEDS: CHLORHEXIDINE GLUCONATE 15 ML UDC MM SCH ×2 (09:34→17:11)
[2016-05-26] MEDS: HYDROGEN PEROXIDE 480 ML BOTTLE TP SCH ×2 (09:34→21:28)
[2016-05-26] MEDS: ASCORBIC ACID 500 MG TABLET GT SCH (09:34)
[2016-05-26] MEDS: PROSOURCE / PROSTAT (PYXIS) 30 ML UDC GT SCH (09:34)
[2016-05-26] MEDS: Z GUARD REMEDY 4 OZ OINT TP SCH ×2 (09:34→21:28)
[2016-05-26] MEDS: MULTIVITAMINS,THERAGRAN 1 UDTAB TABLET GT SCH (09:34)
--- NOTE | 2016-05-26 10:41 | NUR ---
Seen and examined by Dr. Reese, NNO given.
--- NOTE | 2016-05-26 14:16 | NUR ---
Resident was seen by Dr. Mills (leather stitcher) this morning.
[2016-05-26 20:40] VITALS: BP 117/71
[2016-05-27] MEDS: SUCRALFATE 1 G/10 ML UDC GT SCH ×6 (00:11→20:29)
[2016-05-27] MEDS: ALBUTEROL FS 2.5 MG/0.5 ML VIAL.NEB NEB SCH ×4 (01:00→20:07)
[2016-05-27] MEDS: IPRATROPIUM NEB FS 0.5 MG/2.5 ML AMPUL.NEB IH SCH ×4 (01:01→20:07)
[2016-05-27] MEDS: POLYVINYL ALCOHOL 15 ML BOTTLE EACHEYE SCH ×3 (05:31→20:23)
[2016-05-27] MEDS: OMEPRAZOLE 20 MG CAPSULE.DR GT SCH (05:31)
[2016-05-27] MEDS: FIBERSOURCE HN 1,000 ML BOTTLE GT PRN (06:20)
[2016-05-27 07:11] LABS: BASOPHILS % (AUTO) 0.1 % (0.0-2.0); EOSINOPHILS # (AUTO) 0.1 /CMM (0.0-0.7); EOSINOPHILS % (AUTO) 1.3 % (0.0-6.0); HEMATOCRIT 27 % (39-51); HEMOGLOBIN 8.9 g/dL (13.5-17.5); LYMPHOCYTES % (AUTO) 13.2 % (20.0-44.0); MEAN CORPUSCULAR HEMOGLOBIN 31 PG (26.0-33.0); MEAN CORPUSCULAR HGB CONC 33 g/dl (31.0-36.0); MEAN CORPUSCULAR VOLUME 93 fL (80-96); MONOCYTES # (AUTO) 0.5 /CMM (0.1-1.30); MONOCYTES % (AUTO) 6.3 % (2.0-12.0); NEUTROPHILS # (AUTO) 5.9 /CMM (1.8-8.9); NEUTROPHILS % (AUTO) 79.1 % (43.0-81.0); PLATELET COUNT (AUTO) 313 /CMM (150-450); RDW COEFFICIENT OF VARIATION 15.5 (11.5-15.0); RED BLOOD CELL COUNT(AUTO) 2.92 MIL/uL (4.5-6.0); WHITE BLOOD COUNT (AUTO) 7.5 K/uL (4.3-11.0)
[2016-05-27 07:49] VITALS: BP 115/65
[2016-05-27] MEDS: PROSOURCE / PROSTAT (PYXIS) 30 ML UDC GT SCH (08:30)
[2016-05-27] MEDS: ASCORBIC ACID 500 MG TABLET GT SCH (08:30)
[2016-05-27] MEDS: MULTIVITAMINS,THERAGRAN 1 UDTAB TABLET GT SCH (08:30)
[2016-05-27] MEDS: HYDROGEN PEROXIDE 480 ML BOTTLE TP SCH ×2 (09:00→20:30)
[2016-05-27] MEDS: Z GUARD REMEDY 4 OZ OINT TP SCH ×2 (09:00→20:30)
[2016-05-27] MEDS: CHLORHEXIDINE GLUCONATE 15 ML UDC MM SCH ×2 (09:00→17:03)
--- NOTE | 2016-05-27 14:00 | NUR ---
Seen by RADHAMES Ayala. She is aware of CBC result. No new order.
[2016-05-27 20:00] VITALS: BP 100/71
[2016-05-27] MEDS: ACETAMINOPHEN 650 MG/20 ML UDC- FOR SA PATIENTS ONLY GT PRN (23:20)
[2016-05-28] MEDS: SUCRALFATE 1 G/10 ML UDC GT SCH ×6 (00:12→21:07)
[2016-05-28] MEDS: IPRATROPIUM NEB FS 0.5 MG/2.5 ML AMPUL.NEB IH SCH ×4 (01:40→20:12)
[2016-05-28] MEDS: ALBUTEROL FS 2.5 MG/0.5 ML VIAL.NEB NEB SCH ×4 (01:40→20:12)
[2016-05-28] MEDS: POLYVINYL ALCOHOL 15 ML BOTTLE EACHEYE SCH ×3 (04:48→21:07)
[2016-05-28] MEDS: OMEPRAZOLE 20 MG CAPSULE.DR GT SCH (05:37)
[2016-05-28 08:00] VITALS: BP 113/68
[2016-05-28] MEDS: PROSOURCE / PROSTAT (PYXIS) 30 ML UDC GT SCH (08:50)
[2016-05-28] MEDS: MULTIVITAMINS,THERAGRAN 1 UDTAB TABLET GT SCH (08:51)
[2016-05-28] MEDS: ASCORBIC ACID 500 MG TABLET GT SCH (08:51)
[2016-05-28] MEDS: Z GUARD REMEDY 4 OZ OINT TP SCH ×2 (08:51→21:07)
[2016-05-28] MEDS: CHLORHEXIDINE GLUCONATE 15 ML UDC MM SCH ×2 (08:51→17:52)
[2016-05-28] MEDS: HYDROGEN PEROXIDE 480 ML BOTTLE TP SCH ×2 (08:51→21:07)
[2016-05-28] MEDS: ACETAMINOPHEN 650 MG/20 ML UDC- FOR SA PATIENTS ONLY GT PRN (08:52)
[2016-05-28] MEDS: FIBERSOURCE HN 1,000 ML BOTTLE GT PRN (13:44)
[2016-05-29] MEDS: SUCRALFATE 1 G/10 ML UDC GT SCH ×6 (00:44→20:50)
[2016-05-29] MEDS: ALBUTEROL FS 2.5 MG/0.5 ML VIAL.NEB NEB SCH ×4 (01:13→19:49)
[2016-05-29] MEDS: IPRATROPIUM NEB FS 0.5 MG/2.5 ML AMPUL.NEB IH SCH ×4 (01:13→19:49)
[2016-05-29] MEDS: FIBERSOURCE HN 1,000 ML BOTTLE GT PRN ×2 (02:37→17:24)
[2016-05-29] MEDS: POLYVINYL ALCOHOL 15 ML BOTTLE EACHEYE SCH ×3 (05:00→20:50)
[2016-05-29] MEDS: OMEPRAZOLE 20 MG CAPSULE.DR GT SCH (06:02)
[2016-05-29 07:45] VITALS: BP_SYST 111; BP_DIAS 60; BP_DIAS 77
[2016-05-29] MEDS: PROSOURCE / PROSTAT (PYXIS) 30 ML UDC GT SCH (09:45)
[2016-05-29] MEDS: MULTIVITAMINS,THERAGRAN 1 UDTAB TABLET GT SCH (09:45)
[2016-05-29] MEDS: CHLORHEXIDINE GLUCONATE 15 ML UDC MM SCH ×2 (09:45→17:15)
[2016-05-29] MEDS: ASCORBIC ACID 500 MG TABLET GT SCH (09:45)
[2016-05-29] MEDS: HYDROGEN PEROXIDE 480 ML BOTTLE TP SCH ×2 (09:45→21:40)
[2016-05-29] MEDS: Z GUARD REMEDY 4 OZ OINT TP SCH ×2 (09:46→21:40)
--- NOTE | 2016-05-29 16:00 | NUR ---
Seen and examined by Isidra Ayala, EDUCATIONAL TECHNOLOGY SPECIALIST, NNO given.
[2016-05-29 19:48] VITALS: BP 110/70
[2016-05-30] MEDS: SUCRALFATE 1 G/10 ML UDC GT SCH ×6 (00:22→21:49)
[2016-05-30] MEDS: IPRATROPIUM NEB FS 0.5 MG/2.5 ML AMPUL.NEB IH SCH ×4 (01:31→19:40)
[2016-05-30] MEDS: ALBUTEROL FS 2.5 MG/0.5 ML VIAL.NEB NEB SCH ×4 (01:32→19:40)
[2016-05-30] MEDS: OMEPRAZOLE 20 MG CAPSULE.DR GT SCH (05:51)
[2016-05-30] MEDS: POLYVINYL ALCOHOL 15 ML BOTTLE EACHEYE SCH ×3 (05:51→21:49)
[2016-05-30] MEDS: HYDROGEN PEROXIDE 480 ML BOTTLE TP SCH ×2 (09:00→21:49)
[2016-05-30] MEDS: Z GUARD REMEDY 4 OZ OINT TP SCH ×2 (09:11→21:49)
[2016-05-30] MEDS: ASCORBIC ACID 500 MG TABLET GT SCH (09:11)
[2016-05-30] MEDS: MULTIVITAMINS,THERAGRAN 1 UDTAB TABLET GT SCH (09:11)
[2016-05-30] MEDS: CHLORHEXIDINE GLUCONATE 15 ML UDC MM SCH ×2 (09:11→17:06)
[2016-05-30] MEDS: PROSOURCE / PROSTAT (PYXIS) 30 ML UDC GT SCH (09:11)
[2016-05-30] MEDS: FIBERSOURCE HN 1,000 ML BOTTLE GT PRN (09:12)
[2016-05-30] MEDS: ACETAMINOPHEN 650 MG/20 ML UDC- FOR SA PATIENTS ONLY GT PRN (09:12)
--- NOTE | 2016-05-30 13:35 | NUR ---
Social Service Section of [facility] (1st quarter) completed. Resident is alert but has difficulty communicating. He is able to convey his needs by mouthing words and responding to yes or no questions. His daughter Olivia Olivo is involved but does not visit frequently due to her working schedule. Sister Elizabeth checks in frequently from [place] and can assist with discharge planning along with Olivia. 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
[2016-05-30 20:09] VITALS: BP 100/63
[2016-05-31] MEDS: SUCRALFATE 1 G/10 ML UDC GT SCH ×6 (01:00→20:57)
[2016-05-31] MEDS: ALBUTEROL FS 2.5 MG/0.5 ML VIAL.NEB NEB SCH ×4 (02:11→19:25)
[2016-05-31] MEDS: IPRATROPIUM NEB FS 0.5 MG/2.5 ML AMPUL.NEB IH SCH ×4 (02:11→19:25)
[2016-05-31] MEDS: POLYVINYL ALCOHOL 15 ML BOTTLE EACHEYE SCH ×3 (05:02→20:57)
[2016-05-31] MEDS: OMEPRAZOLE 20 MG CAPSULE.DR GT SCH (05:02)
[2016-05-31 07:28] VITALS: BP 122/85
[2016-05-31] MEDS: PROSOURCE / PROSTAT (PYXIS) 30 ML UDC GT SCH (08:30)
[2016-05-31] MEDS: CHLORHEXIDINE GLUCONATE 15 ML UDC MM SCH ×2 (08:31→16:52)
[2016-05-31] MEDS: ASCORBIC ACID 500 MG TABLET GT SCH (08:31)
[2016-05-31] MEDS: ACETAMINOPHEN 650 MG/20 ML UDC- FOR SA PATIENTS ONLY GT PRN ×2 (08:31→16:51)
[2016-05-31] MEDS: Z GUARD REMEDY 4 OZ OINT TP SCH ×2 (08:31→20:57)
[2016-05-31] MEDS: HYDROGEN PEROXIDE 480 ML BOTTLE TP SCH ×2 (08:31→20:57)
[2016-05-31] MEDS: MULTIVITAMINS,THERAGRAN 1 UDTAB TABLET GT SCH (08:31)
[2016-05-31] MEDS: FIBERSOURCE HN 1,000 ML BOTTLE GT PRN (16:51)
[2016-05-31 19:47] VITALS: BP 106/61
[2016-06-01] MEDS: SUCRALFATE 1 G/10 ML UDC GT SCH ×6 (00:11→20:45)
[2016-06-01] MEDS: ALBUTEROL FS 2.5 MG/0.5 ML VIAL.NEB NEB SCH ×4 (01:26→19:27)
[2016-06-01] MEDS: IPRATROPIUM NEB FS 0.5 MG/2.5 ML AMPUL.NEB IH SCH ×4 (01:26→19:27)
[2016-06-01] MEDS: POLYVINYL ALCOHOL 15 ML BOTTLE EACHEYE SCH ×3 (05:23→20:42)
[2016-06-01] MEDS: OMEPRAZOLE 20 MG CAPSULE.DR GT SCH (05:24)
[2016-06-01] MEDS: FIBERSOURCE HN 1,000 ML BOTTLE GT PRN ×2 (05:43→16:59)
[2016-06-01 08:00] VITALS: BP 106/70
[2016-06-01] MEDS: CHLORHEXIDINE GLUCONATE 15 ML UDC MM SCH ×2 (09:37→16:55)
[2016-06-01] MEDS: MULTIVITAMINS,THERAGRAN 1 UDTAB TABLET GT SCH (09:37)
[2016-06-01] MEDS: ASCORBIC ACID 500 MG TABLET GT SCH (09:37)
[2016-06-01] MEDS: PROSOURCE / PROSTAT (PYXIS) 30 ML UDC GT SCH (09:37)
[2016-06-01] MEDS: Z GUARD REMEDY 4 OZ OINT TP SCH ×2 (09:38→20:46)
[2016-06-01] MEDS: HYDROGEN PEROXIDE 480 ML BOTTLE TP SCH ×2 (09:38→20:45)
[2016-06-01 19:55] VITALS: BP 98/57
[2016-06-02] MEDS: SUCRALFATE 1 G/10 ML UDC GT SCH ×6 (01:00→20:17)
[2016-06-02] MEDS: ALBUTEROL FS 2.5 MG/0.5 ML VIAL.NEB NEB SCH ×4 (01:29→20:28)
[2016-06-02] MEDS: IPRATROPIUM NEB FS 0.5 MG/2.5 ML AMPUL.NEB IH SCH ×4 (01:29→20:28)
[2016-06-02] MEDS: POLYVINYL ALCOHOL 15 ML BOTTLE EACHEYE SCH ×3 (04:08→20:17)
[2016-06-02] MEDS: OMEPRAZOLE 20 MG CAPSULE.DR GT SCH (05:15)
[2016-06-02] MEDS: ASCORBIC ACID 500 MG TABLET GT SCH (08:11)
[2016-06-02] MEDS: Z GUARD REMEDY 4 OZ OINT TP SCH ×2 (08:11→20:17)
[2016-06-02] MEDS: CHLORHEXIDINE GLUCONATE 15 ML UDC MM SCH ×2 (08:11→16:38)
[2016-06-02] MEDS: MULTIVITAMINS,THERAGRAN 1 UDTAB TABLET GT SCH (08:11)
[2016-06-02] MEDS: HYDROGEN PEROXIDE 480 ML BOTTLE TP SCH ×2 (08:11→20:17)
[2016-06-02] MEDS: PROSOURCE / PROSTAT (PYXIS) 30 ML UDC GT SCH (08:11)
[2016-06-02 09:56] VITALS: BP 117/56
--- NOTE | 2016-06-02 11:09 | NUR ---
Was informed by charge nurse that patient is in need of a psych consult, as he sometimes cries and becomes tearful. SW contacted Dr. Del Toro and notified him that resident is in need of a psych consult. Dr. Del Toro stated that he received the message and thanked SW for information. He did not provide a time/date of when he will come and see resident.
--- NOTE | 2016-06-02 11:35 | NUR ---
Pt was seen by Dr. Reese earlier this morning. Notified him that pt has crying episodes. Received order for psych consult. Notified social insurance analyst Kyung. She informed Dr. Del Toro.
--- NOTE | 2016-06-02 18:04 | NUR ---
DC'd Hodgson catheter as ordered by Dr. Nayak. Will monitor urine output.
[2016-06-02 19:46] VITALS: BP 113/75
[2016-06-03] MEDS: SUCRALFATE 1 G/10 ML UDC GT SCH ×6 (01:07→20:18)
[2016-06-03] MEDS: IPRATROPIUM NEB FS 0.5 MG/2.5 ML AMPUL.NEB IH SCH ×4 (02:25→19:57)
[2016-06-03] MEDS: ALBUTEROL FS 2.5 MG/0.5 ML VIAL.NEB NEB SCH ×4 (02:25→19:57)
[2016-06-03] MEDS: POLYVINYL ALCOHOL 15 ML BOTTLE EACHEYE SCH ×3 (05:11→20:17)
[2016-06-03] MEDS: OMEPRAZOLE 20 MG CAPSULE.DR GT SCH (05:12)
[2016-06-03 07:44] VITALS: BP 124/70
--- NOTE | 2016-06-03 07:45 | NUR ---
RN OPENING RECEIVED PT STABLE TRACH/VENT APPROPRIATE SETTINGS. PT FLACC 0 NO S/S PAIN. PER RN PT PULLED OUT G TUBE, VISUALIZED SKIN AROUND STOMA IRRITATED AND RAISED. G TUBE APPEARS TO BE IN PLACE. AWAITING MD ORDER FOR VERIFICATION OF PLACEMENT. PT LEFT WITH CALL LIGHT IN REACH, BED LOWERED AND LOCKED, RAILS UPX3 WITH PADDED SIDING AND BED ALARM ON.
--- NOTE | 2016-06-03 08:30 | NUR ---
Notified Dr. Vance that pt's G-tube came out and night nurse replaced it. Received order to do STAT KUB to verify placement.
[2016-06-03 08:45] VITALS: BP 124/70
[2016-06-03] MEDS: MULTIVITAMINS,THERAGRAN 1 UDTAB TABLET GT SCH (09:00)
[2016-06-03] MEDS: ASCORBIC ACID 500 MG TABLET GT SCH (09:00)
[2016-06-03] MEDS ORDERED: DIATR MEGLU/DIATRIZOATE SODIUM 120 ML BOTTLE (GASTROGRAPHIN) ONE (09:26)
[2016-06-03] MEDS: Z GUARD REMEDY 4 OZ OINT TP SCH ×2 (09:54→20:18)
[2016-06-03] MEDS: HYDROGEN PEROXIDE 480 ML BOTTLE TP SCH ×2 (09:54→20:18)
[2016-06-03] MEDS: CHLORHEXIDINE GLUCONATE 15 ML UDC MM SCH ×2 (09:57→17:22)
--- NOTE | 2016-06-03 11:12 | NUR ---
Relayed KUB result to Dr. Vance. Waiting for orders.
--- NOTE | 2016-06-03 11:30 | NUR ---
ms rn notes resumed feeding. pt has been without for 4 hours. will resume for 20h and off 4hrs. 7 am 06/04/16 to pause feeding
--- NOTE | 2016-06-03 11:32 | NUR ---
KUB result seen by BEHAVIORIST Isidra Ayala. Received order to resume feeding and medications via GT.
[2016-06-03] MEDS: PROSOURCE / PROSTAT (PYXIS) 30 ML UDC GT SCH (11:34)
--- NOTE | 2016-06-03 11:34 | NUR ---
ms rn notes giving am medications as soon as received order to resume meds/feeding through g tube.
[2016-06-03] MEDS: FIBERSOURCE HN 1,000 ML BOTTLE GT PRN (14:38)
--- NOTE | 2016-06-03 14:38 | NUR ---
ms rn notes hung updated feeding bag and tubing.
--- NOTE | 2016-06-03 16:20 | NUR ---
Resident was seen by Dr. Jang (digital imaging technician).
--- NOTE | 2016-06-03 19:03 | NUR ---
RN CLOSING PT STABLE, G TUBE CARE, TRACH CARE COMPLETED PRN. SUCTIONED PRN, TURNED Q2H, SKIN CARE PRN SOILING. NO CHANGES PATIENT STABLE. FEEDING RUNNING ORDERED AND VENT SETTINGS ORDERED
[2016-06-03 19:36] VITALS: BP 103/60
[2016-06-03] MEDS: TOBRAMYCIN/DEXAMETH OPHTH DORPS 2.5 ML BOTTLE EACHEYE SCH (22:00)
[2016-06-04] MEDS: SUCRALFATE 1 G/10 ML UDC GT SCH ×6 (01:00→20:41)
[2016-06-04] MEDS: ALBUTEROL FS 2.5 MG/0.5 ML VIAL.NEB NEB SCH ×4 (01:04→19:08)
[2016-06-04] MEDS: IPRATROPIUM NEB FS 0.5 MG/2.5 ML AMPUL.NEB IH SCH ×4 (01:04→19:08)
[2016-06-04] MEDS: OMEPRAZOLE 20 MG CAPSULE.DR GT SCH (05:33)
[2016-06-04] MEDS: POLYVINYL ALCOHOL 15 ML BOTTLE EACHEYE SCH ×3 (05:33→20:41)
[2016-06-04 07:49] VITALS: BP 119/73
[2016-06-04] MEDS: ASCORBIC ACID 500 MG TABLET GT SCH (09:00)
[2016-06-04] MEDS: PROSOURCE / PROSTAT (PYXIS) 30 ML UDC GT SCH (09:00)
[2016-06-04] MEDS: HYDROGEN PEROXIDE 480 ML BOTTLE TP SCH ×2 (09:00→20:41)
[2016-06-04] MEDS: CHLORHEXIDINE GLUCONATE 15 ML UDC MM SCH ×2 (09:00→17:00)
[2016-06-04] MEDS: Z GUARD REMEDY 4 OZ OINT TP SCH ×2 (09:00→20:41)
[2016-06-04] MEDS: MULTIVITAMINS,THERAGRAN 1 UDTAB TABLET GT SCH (09:00)
[2016-06-04] MEDS: ACETAMINOPHEN 650 MG/20 ML UDC- FOR SA PATIENTS ONLY GT PRN (10:03)
--- NOTE | 2016-06-04 15:00 | NUR ---
Obtained telephone consent from resident's daughter Amanda Olivo for the use of Zoloft. Witnessed by two licensed nurses. Faxed signed consent to pharmacy.
[2016-06-04 19:26] VITALS: BP 108/64
[2016-06-04] MEDS: FIBERSOURCE HN 1,000 ML BOTTLE GT PRN (20:32)
[2016-06-04] MEDS: TOBRAMYCIN/DEXAMETH OPHTH DORPS 2.5 ML BOTTLE EACHEYE SCH (21:09)
[2016-06-05] MEDS: SUCRALFATE 1 G/10 ML UDC GT SCH ×6 (01:09→20:35)
[2016-06-05] MEDS: IPRATROPIUM NEB FS 0.5 MG/2.5 ML AMPUL.NEB IH SCH ×4 (01:44→20:24)
[2016-06-05] MEDS: ALBUTEROL FS 2.5 MG/0.5 ML VIAL.NEB NEB SCH ×4 (01:44→20:24)
[2016-06-05] MEDS: OMEPRAZOLE 20 MG CAPSULE.DR GT SCH (05:20)
[2016-06-05] MEDS: POLYVINYL ALCOHOL 15 ML BOTTLE EACHEYE SCH ×3 (05:20→20:35)
[2016-06-05 07:39] VITALS: BP 99/60
[2016-06-05] MEDS: NEOMY SULF/BACITRAC ZN/POLY 15 GM TUBE TP SCH ×2 (09:00→20:35)
[2016-06-05] MEDS: CHLORHEXIDINE GLUCONATE 15 ML UDC MM SCH ×2 (09:00→16:59)
[2016-06-05] MEDS: Z GUARD REMEDY 4 OZ OINT TP SCH ×2 (09:00→20:35)
[2016-06-05] MEDS: HYDROGEN PEROXIDE 480 ML BOTTLE TP SCH ×2 (09:00→20:35)
[2016-06-05] MEDS: MULTIVITAMINS,THERAGRAN 1 UDTAB TABLET GT SCH (09:00)
[2016-06-05] MEDS: ASCORBIC ACID 500 MG TABLET GT SCH (09:00)
[2016-06-05] MEDS: PROSOURCE / PROSTAT (PYXIS) 30 ML UDC GT SCH (09:00)
[2016-06-05] MEDS: SERTRALINE HCL 25 MG TABLET PO SCH (09:00)
[2016-06-05] MEDS: FIBERSOURCE HN 1,000 ML BOTTLE GT PRN (11:38)
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
[2016-06-05] MEDS: TOBRAMYCIN/DEXAMETH OPHTH DORPS 2.5 ML BOTTLE EACHEYE SCH (21:13)
[2016-06-05 22:15] VITALS: BP 121/71
[2016-06-06] MEDS: FIBERSOURCE HN 1,000 ML BOTTLE GT PRN ×2 (00:55→17:11)
[2016-06-06] MEDS: SUCRALFATE 1 G/10 ML UDC GT SCH ×6 (00:55→20:18)
[2016-06-06] MEDS: ALBUTEROL FS 2.5 MG/0.5 ML VIAL.NEB NEB SCH ×4 (01:40→19:49)
[2016-06-06] MEDS: IPRATROPIUM NEB FS 0.5 MG/2.5 ML AMPUL.NEB IH SCH ×4 (01:40→19:48)
[2016-06-06] MEDS: POLYVINYL ALCOHOL 15 ML BOTTLE EACHEYE SCH ×3 (05:09→20:18)
[2016-06-06] MEDS: OMEPRAZOLE 20 MG CAPSULE.DR GT SCH (05:09)
[2016-06-06 07:55] VITALS: BP 112/63
[2016-06-06] MEDS: CHLORHEXIDINE GLUCONATE 15 ML UDC MM SCH ×2 (09:00→17:00)
[2016-06-06] MEDS: HYDROGEN PEROXIDE 480 ML BOTTLE TP SCH ×2 (09:21→23:00)
[2016-06-06] MEDS: NEOMY SULF/BACITRAC ZN/POLY 15 GM TUBE TP SCH ×2 (09:21→23:00)
[2016-06-06] MEDS: MULTIVITAMINS,THERAGRAN 1 UDTAB TABLET GT SCH (09:21)
[2016-06-06] MEDS: SERTRALINE HCL 25 MG TABLET PO SCH (09:21)
[2016-06-06] MEDS: ASCORBIC ACID 500 MG TABLET GT SCH (09:21)
[2016-06-06] MEDS: PROSOURCE / PROSTAT (PYXIS) 30 ML UDC GT SCH (09:21)
[2016-06-06] MEDS: Z GUARD REMEDY 4 OZ OINT TP SCH ×2 (09:21→23:00)
[2016-06-06 20:40] VITALS: BP 111/59
[2016-06-06] MEDS: TOBRAMYCIN/DEXAMETH OPHTH DORPS 2.5 ML BOTTLE EACHEYE SCH (22:00)
[2016-06-07] MEDS: SUCRALFATE 1 G/10 ML UDC GT SCH ×6 (00:37→20:34)
[2016-06-07] MEDS: IPRATROPIUM NEB FS 0.5 MG/2.5 ML AMPUL.NEB IH SCH ×4 (01:30→20:15)
[2016-06-07] MEDS: ALBUTEROL FS 2.5 MG/0.5 ML VIAL.NEB NEB SCH ×4 (01:30→20:15)
[2016-06-07] MEDS: POLYVINYL ALCOHOL 15 ML BOTTLE EACHEYE SCH ×3 (05:30→20:34)
[2016-06-07] MEDS: OMEPRAZOLE 20 MG CAPSULE.DR GT SCH (06:26)
[2016-06-07 08:12] VITALS: BP 123/68
[2016-06-07] MEDS: Z GUARD REMEDY 4 OZ OINT TP SCH ×2 (08:43→20:35)
[2016-06-07] MEDS: NEOMY SULF/BACITRAC ZN/POLY 15 GM TUBE TP SCH ×2 (08:43→20:35)
[2016-06-07] MEDS: SERTRALINE HCL 25 MG TABLET PO SCH (08:43)
[2016-06-07] MEDS: ASCORBIC ACID 500 MG TABLET GT SCH (08:43)
[2016-06-07] MEDS: CHLORHEXIDINE GLUCONATE 15 ML UDC MM SCH ×2 (08:43→17:00)
[2016-06-07] MEDS: HYDROGEN PEROXIDE 480 ML BOTTLE TP SCH ×2 (08:43→20:34)
[2016-06-07] MEDS: PROSOURCE / PROSTAT (PYXIS) 30 ML UDC GT SCH (08:43)
[2016-06-07] MEDS: MULTIVITAMINS,THERAGRAN 1 UDTAB TABLET GT SCH (08:43)
[2016-06-07 16:00] VITALS: BP 110/67
[2016-06-07 19:52] VITALS: BP 133/74
[2016-06-07] MEDS: TOBRAMYCIN/DEXAMETH OPHTH DORPS 2.5 ML BOTTLE EACHEYE SCH (21:11)
[2016-06-07] MEDS: SIMETHICONE SUSP 40 MG/0.6 ML BOTTLE GT PRN (21:11)
[2016-06-07] MEDS: FIBERSOURCE HN 1,000 ML BOTTLE GT PRN (21:11)
[2016-06-08] MEDS: SUCRALFATE 1 G/10 ML UDC GT SCH ×6 (00:39→20:25)
[2016-06-08] MEDS: IPRATROPIUM NEB FS 0.5 MG/2.5 ML AMPUL.NEB IH SCH ×4 (02:58→19:43)
[2016-06-08] MEDS: ALBUTEROL FS 2.5 MG/0.5 ML VIAL.NEB NEB SCH ×4 (02:58→19:43)
[2016-06-08] MEDS: OMEPRAZOLE 20 MG CAPSULE.DR GT SCH (05:08)
[2016-06-08] MEDS: POLYVINYL ALCOHOL 15 ML BOTTLE EACHEYE SCH ×3 (05:08→20:25)
[2016-06-08 08:09] VITALS: BP 118/72
[2016-06-08] MEDS: NEOMY SULF/BACITRAC ZN/POLY 15 GM TUBE TP SCH ×2 (09:00→20:25)
[2016-06-08] MEDS: Z GUARD REMEDY 4 OZ OINT TP SCH ×2 (09:00→20:25)
[2016-06-08] MEDS: CHLORHEXIDINE GLUCONATE 15 ML UDC MM SCH ×2 (09:00→17:28)
[2016-06-08] MEDS: HYDROGEN PEROXIDE 480 ML BOTTLE TP SCH ×2 (09:00→20:25)
[2016-06-08] MEDS: PROSOURCE / PROSTAT (PYXIS) 30 ML UDC GT SCH (09:00)
[2016-06-08] MEDS: MULTIVITAMINS,THERAGRAN 1 UDTAB TABLET GT SCH (09:00)
[2016-06-08] MEDS: ASCORBIC ACID 500 MG TABLET GT SCH (09:00)
[2016-06-08] MEDS: SERTRALINE HCL 25 MG TABLET PO SCH (09:00)
[2016-06-08 19:59] VITALS: BP 110/75
[2016-06-08] MEDS: TOBRAMYCIN/DEXAMETH OPHTH DORPS 2.5 ML BOTTLE EACHEYE SCH (21:57)
[2016-06-09] MEDS: SUCRALFATE 1 G/10 ML UDC GT SCH ×6 (00:30→20:04)
[2016-06-09] MEDS: ALBUTEROL FS 2.5 MG/0.5 ML VIAL.NEB NEB SCH ×4 (01:21→19:14)
[2016-06-09] MEDS: IPRATROPIUM NEB FS 0.5 MG/2.5 ML AMPUL.NEB IH SCH ×4 (01:21→19:13)
[2016-06-09] MEDS: POLYVINYL ALCOHOL 15 ML BOTTLE EACHEYE SCH ×3 (05:09→20:04)
[2016-06-09] MEDS: OMEPRAZOLE 20 MG CAPSULE.DR GT SCH (05:09)
[2016-06-09] MEDS: FIBERSOURCE HN 1,000 ML BOTTLE GT PRN ×2 (05:12→21:49)
[2016-06-09 07:36] VITALS: BP 116/76
[2016-06-09] MEDS: Z GUARD REMEDY 4 OZ OINT TP SCH ×2 (09:00→20:04)
[2016-06-09] MEDS: ASCORBIC ACID 500 MG TABLET GT SCH (09:00)
[2016-06-09] MEDS: NEOMY SULF/BACITRAC ZN/POLY 15 GM TUBE TP SCH ×2 (09:00→20:04)
[2016-06-09] MEDS: PROSOURCE / PROSTAT (PYXIS) 30 ML UDC GT SCH (09:00)
[2016-06-09] MEDS: MULTIVITAMINS,THERAGRAN 1 UDTAB TABLET GT SCH (09:00)
[2016-06-09] MEDS: CHLORHEXIDINE GLUCONATE 15 ML UDC MM SCH ×2 (09:00→17:29)
[2016-06-09] MEDS: HYDROGEN PEROXIDE 480 ML BOTTLE TP SCH ×2 (09:00→20:04)
[2016-06-09] MEDS: SERTRALINE HCL 25 MG TABLET PO SCH (09:00)
[2016-06-09 19:58] VITALS: BP 141/75
[2016-06-09] MEDS: TOBRAMYCIN/DEXAMETH OPHTH DORPS 2.5 ML BOTTLE EACHEYE SCH (21:32)
[2016-06-10] MEDS: SUCRALFATE 1 G/10 ML UDC GT SCH ×6 (01:06→20:17)
[2016-06-10] MEDS: IPRATROPIUM NEB FS 0.5 MG/2.5 ML AMPUL.NEB IH SCH ×4 (01:17→19:17)
[2016-06-10] MEDS: ALBUTEROL FS 2.5 MG/0.5 ML VIAL.NEB NEB SCH ×4 (01:17→19:17)
[2016-06-10] MEDS: POLYVINYL ALCOHOL 15 ML BOTTLE EACHEYE SCH ×3 (05:04→20:17)
[2016-06-10] MEDS: OMEPRAZOLE 20 MG CAPSULE.DR GT SCH (05:04)
[2016-06-10 07:53] VITALS: BP 131/76
[2016-06-10] MEDS: SERTRALINE HCL 25 MG TABLET PO SCH (09:00)
[2016-06-10] MEDS: HYDROGEN PEROXIDE 480 ML BOTTLE TP SCH ×2 (09:00→20:17)
[2016-06-10] MEDS: Z GUARD REMEDY 4 OZ OINT TP SCH ×2 (09:00→20:17)
[2016-06-10] MEDS: CHLORHEXIDINE GLUCONATE 15 ML UDC MM SCH ×2 (09:00→16:33)
[2016-06-10] MEDS: PROSOURCE / PROSTAT (PYXIS) 30 ML UDC GT SCH (09:00)
[2016-06-10] MEDS: MULTIVITAMINS,THERAGRAN 1 UDTAB TABLET GT SCH (09:00)
[2016-06-10] MEDS: NEOMY SULF/BACITRAC ZN/POLY 15 GM TUBE TP SCH ×2 (09:00→20:17)
[2016-06-10] MEDS: ASCORBIC ACID 500 MG TABLET GT SCH (09:00)
--- NOTE | 2016-06-10 12:50 | NUR ---
Morphine sulfate 2mg. given via GT due to right shouder pain. effective no c/o pain after 1hr.
[2016-06-10] MEDS: MORPHINE SULFATE SOLN CONCENTRATED 20 MG/ML GT PRN (12:52)
[2016-06-10 19:54] VITALS: BP 107/52
[2016-06-10] MEDS ORDERED: TOBRAMYCIN/DEXAMETH OPHTH DORPS 2.5 ML BOTTLE EACHEYE SCH (20:38)
[2016-06-10] MEDS: FIBERSOURCE HN 1,000 ML BOTTLE GT PRN (23:48)
[2016-06-11] MEDS: TOBRAMYCIN/DEXAMETH OPHTH DORPS 2.5 ML BOTTLE EACHEYE SCH ×4 (00:15→17:05)
[2016-06-11] MEDS: SUCRALFATE 1 G/10 ML UDC GT SCH ×6 (00:16→20:03)
[2016-06-11] MEDS: IPRATROPIUM NEB FS 0.5 MG/2.5 ML AMPUL.NEB IH SCH ×4 (01:37→20:02)
[2016-06-11] MEDS: ALBUTEROL FS 2.5 MG/0.5 ML VIAL.NEB NEB SCH ×4 (01:37→20:02)
[2016-06-11] MEDS: POLYVINYL ALCOHOL 15 ML BOTTLE EACHEYE SCH ×3 (05:07→20:03)
[2016-06-11] MEDS: OMEPRAZOLE 20 MG CAPSULE.DR GT SCH (05:08)
[2016-06-11 08:00] VITALS: BP 122/73
[2016-06-11] MEDS: SERTRALINE HCL 25 MG TABLET PO SCH (09:00)
[2016-06-11] MEDS: ASCORBIC ACID 500 MG TABLET GT SCH (09:00)
[2016-06-11] MEDS: MULTIVITAMINS,THERAGRAN 1 UDTAB TABLET GT SCH (09:00)
[2016-06-11] MEDS: Z GUARD REMEDY 4 OZ OINT TP SCH ×2 (09:00→20:04)
[2016-06-11] MEDS: NEOMY SULF/BACITRAC ZN/POLY 15 GM TUBE TP SCH ×2 (09:00→20:04)
[2016-06-11] MEDS: PROSOURCE / PROSTAT (PYXIS) 30 ML UDC GT SCH (09:00)
[2016-06-11] MEDS: CHLORHEXIDINE GLUCONATE 15 ML UDC MM SCH ×2 (09:00→17:04)
[2016-06-11] MEDS: HYDROGEN PEROXIDE 480 ML BOTTLE TP SCH ×2 (09:00→20:03)
[2016-06-11 19:50] VITALS: BP 103/62
[2016-06-12] MEDS: SUCRALFATE 1 G/10 ML UDC GT SCH ×6 (00:04→21:16)
[2016-06-12] MEDS: TOBRAMYCIN/DEXAMETH OPHTH DORPS 2.5 ML BOTTLE EACHEYE SCH ×5 (00:04→23:24)
[2016-06-12] MEDS: IPRATROPIUM NEB FS 0.5 MG/2.5 ML AMPUL.NEB IH SCH ×4 (01:31→19:48)
[2016-06-12] MEDS: ALBUTEROL FS 2.5 MG/0.5 ML VIAL.NEB NEB SCH ×4 (01:32→19:48)
[2016-06-12] MEDS: OMEPRAZOLE 20 MG CAPSULE.DR GT SCH (05:01)
[2016-06-12] MEDS: POLYVINYL ALCOHOL 15 ML BOTTLE EACHEYE SCH ×3 (05:01→21:16)
[2016-06-12] MEDS: FIBERSOURCE HN 1,000 ML BOTTLE GT PRN ×2 (05:41→17:16)
[2016-06-12 08:52] VITALS: BP 108/71
[2016-06-12] MEDS: PROSOURCE / PROSTAT (PYXIS) 30 ML UDC GT SCH (09:00)
[2016-06-12] MEDS: Z GUARD REMEDY 4 OZ OINT TP SCH ×2 (09:00→21:17)
[2016-06-12] MEDS: CHLORHEXIDINE GLUCONATE 15 ML UDC MM SCH ×2 (09:00→17:15)
[2016-06-12] MEDS: NEOMY SULF/BACITRAC ZN/POLY 15 GM TUBE TP SCH ×2 (09:00→21:17)
[2016-06-12] MEDS: HYDROGEN PEROXIDE 480 ML BOTTLE TP SCH ×2 (09:00→21:16)
[2016-06-12] MEDS: SERTRALINE HCL 25 MG TABLET PO SCH (09:00)
[2016-06-12] MEDS: MULTIVITAMINS,THERAGRAN 1 UDTAB TABLET GT SCH (09:00)
[2016-06-12] MEDS: ASCORBIC ACID 500 MG TABLET GT SCH (09:00)
[2016-06-12 20:05] VITALS: BP 109/65
[2016-06-13] MEDS: IPRATROPIUM NEB FS 0.5 MG/2.5 ML AMPUL.NEB IH SCH ×4 (02:16→19:17)
[2016-06-13] MEDS: ALBUTEROL FS 2.5 MG/0.5 ML VIAL.NEB NEB SCH ×4 (02:16→19:17)
[2016-06-13] MEDS: POLYVINYL ALCOHOL 15 ML BOTTLE EACHEYE SCH ×3 (05:36→20:38)
[2016-06-13] MEDS: OMEPRAZOLE 20 MG CAPSULE.DR GT SCH (05:36)
[2016-06-13] MEDS: TOBRAMYCIN/DEXAMETH OPHTH DORPS 2.5 ML BOTTLE EACHEYE SCH ×3 (05:36→18:58)
[2016-06-13] MEDS: SUCRALFATE 1 G/10 ML UDC GT SCH ×6 (05:36→20:38)
[2016-06-13 07:51] VITALS: BP 124/75
[2016-06-13] MEDS: CHLORHEXIDINE GLUCONATE 15 ML UDC MM SCH ×2 (09:58→17:00)
[2016-06-13] MEDS: PROSOURCE / PROSTAT (PYXIS) 30 ML UDC GT SCH (09:58)
[2016-06-13] MEDS: MULTIVITAMINS,THERAGRAN 1 UDTAB TABLET GT SCH (09:58)
[2016-06-13] MEDS: SERTRALINE HCL 25 MG TABLET PO SCH (09:58)
[2016-06-13] MEDS: HYDROGEN PEROXIDE 480 ML BOTTLE TP SCH ×2 (09:58→20:38)
[2016-06-13] MEDS: ASCORBIC ACID 500 MG TABLET GT SCH (09:58)
[2016-06-13] MEDS: NEOMY SULF/BACITRAC ZN/POLY 15 GM TUBE TP SCH ×2 (09:58→20:39)
[2016-06-13] MEDS: Z GUARD REMEDY 4 OZ OINT TP SCH ×2 (09:59→20:39)
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
--- NOTE | 2016-06-13 13:43 | NUR ---
IDT meeting held, reviewed current medication and treatment orders. Weight gain of 3lbs from last month and patient started of Zoloft for his aggressive behavior. F/C discontinued and urinating well. No new order at this time.
[2016-06-13 23:36] VITALS: BP 111/69
[2016-06-14] MEDS: SUCRALFATE 1 G/10 ML UDC GT SCH ×6 (00:30→21:03)
[2016-06-14] MEDS: TOBRAMYCIN/DEXAMETH OPHTH DORPS 2.5 ML BOTTLE EACHEYE SCH ×5 (00:30→23:45)
[2016-06-14] MEDS: ALBUTEROL FS 2.5 MG/0.5 ML VIAL.NEB NEB SCH ×4 (01:48→19:29)
[2016-06-14] MEDS: IPRATROPIUM NEB FS 0.5 MG/2.5 ML AMPUL.NEB IH SCH ×4 (01:48→19:29)
[2016-06-14] MEDS: FIBERSOURCE HN 1,000 ML BOTTLE GT PRN ×2 (05:22→18:23)
[2016-06-14] MEDS: POLYVINYL ALCOHOL 15 ML BOTTLE EACHEYE SCH ×3 (05:22→21:03)
[2016-06-14] MEDS: OMEPRAZOLE 20 MG CAPSULE.DR GT SCH (05:22)
[2016-06-14 07:59] VITALS: BP 109/61
[2016-06-14] MEDS: PROSOURCE / PROSTAT (PYXIS) 30 ML UDC GT SCH (09:00)
[2016-06-14] MEDS: CHLORHEXIDINE GLUCONATE 15 ML UDC MM SCH ×2 (09:00→17:00)
[2016-06-14] MEDS: NEOMY SULF/BACITRAC ZN/POLY 15 GM TUBE TP SCH ×2 (09:00→21:03)
[2016-06-14] MEDS: Z GUARD REMEDY 4 OZ OINT TP SCH ×2 (09:00→21:03)
[2016-06-14] MEDS: ASCORBIC ACID 500 MG TABLET GT SCH (09:00)
[2016-06-14] MEDS: MULTIVITAMINS,THERAGRAN 1 UDTAB TABLET GT SCH (09:00)
[2016-06-14] MEDS: SERTRALINE HCL 25 MG TABLET PO SCH (09:00)
[2016-06-14] MEDS: HYDROGEN PEROXIDE 480 ML BOTTLE TP SCH ×2 (09:00→21:03)
[2016-06-14 21:30] VITALS: BP 113/72
--- NOTE | 2016-06-15 | NUR ---
END STAPLER NOTE UPON DOING ROUNDS NOTED PT AWAKE AND CALM, NO DISTRESS , HOLDING HIS RIGHT FOREARM, NOTICED RIGHT POSTERIOR FOREARM WITH REDNESS, NO SWELLING NOTED, SLIGHTLY WARM TO TOUCH, PT DENIES PAIN AND GESTURED SCRATCHING HIS RIGHT ARM, SKIN APPEARS DRY, REMAINS INTACT AT THIS TIME,APPLIED AQUAPHOR CREAM FOR SKIN DRYNESS CONTINUE TO MONITOR, KEPT PT'S FINGERNAILS CLEAN AND TRIMMED.
[2016-06-15] MEDS: SUCRALFATE 1 G/10 ML UDC GT SCH ×6 (00:09→20:49)
[2016-06-15] MEDS: IPRATROPIUM NEB FS 0.5 MG/2.5 ML AMPUL.NEB IH SCH ×4 (01:25→18:34)
[2016-06-15] MEDS: ALBUTEROL FS 2.5 MG/0.5 ML VIAL.NEB NEB SCH ×4 (01:25→18:34)
[2016-06-15] MEDS: POLYVINYL ALCOHOL 15 ML BOTTLE EACHEYE SCH ×3 (05:08→20:49)
[2016-06-15] MEDS: OMEPRAZOLE 20 MG CAPSULE.DR GT SCH (05:08)
[2016-06-15] MEDS: TOBRAMYCIN/DEXAMETH OPHTH DORPS 2.5 ML BOTTLE EACHEYE SCH ×3 (05:08→17:17)
[2016-06-15 07:45] VITALS: BP 107/65
[2016-06-15] MEDS: CHLORHEXIDINE GLUCONATE 15 ML UDC MM SCH ×2 (09:00→17:16)
[2016-06-15] MEDS: SERTRALINE HCL 25 MG TABLET GT SCH (09:00)
[2016-06-15] MEDS: ASCORBIC ACID 500 MG TABLET GT SCH (09:00)
[2016-06-15] MEDS: MULTIVITAMINS,THERAGRAN 1 UDTAB TABLET GT SCH (09:00)
[2016-06-15] MEDS: PROSOURCE / PROSTAT (PYXIS) 30 ML UDC GT SCH (09:00)
[2016-06-15] MEDS: Z GUARD REMEDY 4 OZ OINT TP SCH ×2 (09:00→20:49)
[2016-06-15] MEDS: NEOMY SULF/BACITRAC ZN/POLY 15 GM TUBE TP SCH ×2 (09:00→20:49)
[2016-06-15] MEDS: HYDROGEN PEROXIDE 480 ML BOTTLE TP SCH ×2 (09:00→20:49)
[2016-06-15] MEDS ORDERED: MINERAL OIL/PETROL OINT 396 GM JAR TP PRN (12:30)
[2016-06-15] MEDS: FIBERSOURCE HN 1,000 ML BOTTLE GT PRN (15:22)
--- NOTE | 2016-06-15 18:56 | NUR ---
Monitored redness on right posterior forearm , no swelling noted and no skin breakdown noted.applied aquaphor cream for skin dryness, Pt. denies of pain.
[2016-06-15 19:42] VITALS: BP 117/64
[2016-06-15] MEDS: MINERAL OIL/PETROL OINT 396 GM JAR TP SCH (20:49)
[2016-06-16] MEDS: SUCRALFATE 1 G/10 ML UDC GT SCH ×6 (00:15→20:07)
[2016-06-16] MEDS: TOBRAMYCIN/DEXAMETH OPHTH DORPS 2.5 ML BOTTLE EACHEYE SCH ×4 (00:15→17:44)
[2016-06-16] MEDS: IPRATROPIUM NEB FS 0.5 MG/2.5 ML AMPUL.NEB IH SCH ×4 (01:15→20:46)
[2016-06-16] MEDS: ALBUTEROL FS 2.5 MG/0.5 ML VIAL.NEB NEB SCH ×4 (01:15→20:46)
[2016-06-16] MEDS: POLYVINYL ALCOHOL 15 ML BOTTLE EACHEYE SCH ×3 (05:53→20:07)
[2016-06-16] MEDS: FIBERSOURCE HN 1,000 ML BOTTLE GT PRN ×2 (05:54→21:42)
[2016-06-16] MEDS: OMEPRAZOLE 20 MG CAPSULE.DR GT SCH (05:54)
[2016-06-16 08:09] VITALS: BP 113/72
[2016-06-16] MEDS: ASCORBIC ACID 500 MG TABLET GT SCH (09:27)
[2016-06-16] MEDS: MULTIVITAMINS,THERAGRAN 1 UDTAB TABLET GT SCH (09:27)
[2016-06-16] MEDS: PROSOURCE / PROSTAT (PYXIS) 30 ML UDC GT SCH (09:27)
[2016-06-16] MEDS: CHLORHEXIDINE GLUCONATE 15 ML UDC MM SCH ×2 (09:28→16:58)
[2016-06-16] MEDS: MINERAL OIL/PETROL OINT 396 GM JAR TP SCH ×2 (09:28→20:08)
[2016-06-16] MEDS: NEOMY SULF/BACITRAC ZN/POLY 15 GM TUBE TP SCH ×2 (09:29→20:08)
[2016-06-16] MEDS: Z GUARD REMEDY 4 OZ OINT TP SCH ×2 (09:29→20:08)
[2016-06-16] MEDS: HYDROGEN PEROXIDE 480 ML BOTTLE TP SCH ×2 (09:29→20:08)
[2016-06-16] MEDS: SERTRALINE HCL 25 MG TABLET GT SCH (09:30)
--- NOTE | 2016-06-16 10:33 | NUR ---
WOUND CARE CONSULT: PT SEEN FOR RT FOREARM REDNESS. PT NOTED TO HAVE VERY SLIGHT REDNESS OF RT FOREARM. PT DENIES TENDERNESS OR ITCHING. AQUAPHOR IN USE AT THIS TIME. CONCUR WITH THIS FOR DRYNESS. SMALL SCAB NOTED TO RT ELBOW WHICH IS BROWN 1CM X0.3CM, NO DRAINAGE, NO TENDERNESS OR REDNESS AROUND SCAB. WILL SEE PRN.
--- NOTE | 2016-06-16 11:08 | NUR ---
Seen by wound nurse Olivia. No new order.
[2016-06-16 19:45] VITALS: BP 108/64
[2016-06-17] MEDS: TOBRAMYCIN/DEXAMETH OPHTH DORPS 2.5 ML BOTTLE EACHEYE SCH (00:59)
[2016-06-17] MEDS: SUCRALFATE 1 G/10 ML UDC GT SCH ×6 (01:00→20:09)
[2016-06-17] MEDS: ALBUTEROL FS 2.5 MG/0.5 ML VIAL.NEB NEB SCH ×4 (01:03→20:28)
[2016-06-17] MEDS: IPRATROPIUM NEB FS 0.5 MG/2.5 ML AMPUL.NEB IH SCH ×4 (01:03→20:28)
[2016-06-17] MEDS: OMEPRAZOLE 20 MG CAPSULE.DR GT SCH (05:03)
[2016-06-17] MEDS: POLYVINYL ALCOHOL 15 ML BOTTLE EACHEYE SCH ×3 (05:03→20:09)
--- NOTE | 2016-06-17 07:30 | NUR ---
RN NOTES PT IN BED, ASLEEP, EASY TO AROUSE, NO SIGN OF PAIN, NOT IN DISTRESS, GT FEEDING INFUSING WELL, KEPT HOB ELEVATED TO PREVENT ASPIRATION, KEPT WARM AND COMFORTABLE.
[2016-06-17 07:45] VITALS: BP 120/77
[2016-06-17] MEDS: MULTIVITAMINS,THERAGRAN 1 UDTAB TABLET GT SCH (09:13)
[2016-06-17] MEDS: CHLORHEXIDINE GLUCONATE 15 ML UDC MM SCH ×2 (09:14→16:24)
[2016-06-17] MEDS: NEOMY SULF/BACITRAC ZN/POLY 15 GM TUBE TP SCH ×2 (09:14→20:10)
[2016-06-17] MEDS: ASCORBIC ACID 500 MG TABLET GT SCH (09:14)
[2016-06-17] MEDS: MINERAL OIL/PETROL OINT 396 GM JAR TP SCH ×2 (09:14→20:09)
[2016-06-17] MEDS: HYDROGEN PEROXIDE 480 ML BOTTLE TP SCH ×2 (09:14→20:09)
[2016-06-17] MEDS: Z GUARD REMEDY 4 OZ OINT TP SCH ×2 (09:15→20:10)
[2016-06-17] MEDS: SERTRALINE HCL 25 MG TABLET GT SCH (09:20)
[2016-06-17] MEDS: PROSOURCE / PROSTAT (PYXIS) 30 ML UDC GT SCH (09:59)
[2016-06-17] MEDS: FIBERSOURCE HN 1,000 ML BOTTLE GT PRN (15:11)
--- NOTE | 2016-06-17 17:43 | NUR ---
RN NOTES PT IN BED, AWAKE, ALERT, WATCHING TV, NO COMPLAINT OF PAIN, NOT IN DISTRESS, PM CARE RENDERED, TURNED AND REPOSITIONED Q2 HRS, PM MEDS GIVEN ORDERED, GT FEEDING INFUSING WELL, TOLERATING WELL, KEPT COMFORTABLE IN BED.
[2016-06-17 22:43] VITALS: BP 108/69
[2016-06-18] MEDS: SUCRALFATE 1 G/10 ML UDC GT SCH ×6 (00:15→20:02)
[2016-06-18] MEDS: ALBUTEROL FS 2.5 MG/0.5 ML VIAL.NEB NEB SCH ×4 (01:13→19:19)
[2016-06-18] MEDS: IPRATROPIUM NEB FS 0.5 MG/2.5 ML AMPUL.NEB IH SCH ×4 (01:13→19:19)
[2016-06-18] MEDS: POLYVINYL ALCOHOL 15 ML BOTTLE EACHEYE SCH ×3 (05:08→20:02)
[2016-06-18] MEDS: OMEPRAZOLE 20 MG CAPSULE.DR GT SCH (05:08)
[2016-06-18 07:45] VITALS: BP 105/63
[2016-06-18] MEDS: NEOMY SULF/BACITRAC ZN/POLY 15 GM TUBE TP SCH ×2 (09:00→20:02)
[2016-06-18] MEDS: MINERAL OIL/PETROL OINT 396 GM JAR TP SCH ×2 (09:00→20:02)
[2016-06-18] MEDS: CHLORHEXIDINE GLUCONATE 15 ML UDC MM SCH ×2 (09:00→17:00)
[2016-06-18] MEDS: MULTIVITAMINS,THERAGRAN 1 UDTAB TABLET GT SCH (09:00)
[2016-06-18] MEDS: SERTRALINE HCL 25 MG TABLET GT SCH (09:00)
[2016-06-18] MEDS: Z GUARD REMEDY 4 OZ OINT TP SCH ×2 (09:00→20:02)
[2016-06-18] MEDS: PROSOURCE / PROSTAT (PYXIS) 30 ML UDC GT SCH (09:00)
[2016-06-18] MEDS: ASCORBIC ACID 500 MG TABLET GT SCH (09:00)
[2016-06-18] MEDS: HYDROGEN PEROXIDE 480 ML BOTTLE TP SCH ×2 (09:00→20:02)
[2016-06-18] MEDS: FIBERSOURCE HN 1,000 ML BOTTLE GT PRN (10:22)
--- NOTE | 2016-06-18 18:02 | NUR ---
Episode of refusing mouth care, explained risks and benefits x3 still refused, charge nurse made aware.
[2016-06-18 19:50] VITALS: BP 126/68
[2016-06-19] MEDS: FIBERSOURCE HN 1,000 ML BOTTLE GT PRN ×2 (00:37→15:18)
[2016-06-19] MEDS: SUCRALFATE 1 G/10 ML UDC GT SCH ×6 (00:37→21:07)
[2016-06-19] MEDS: IPRATROPIUM NEB FS 0.5 MG/2.5 ML AMPUL.NEB IH SCH ×4 (00:50→19:59)
[2016-06-19] MEDS: ALBUTEROL FS 2.5 MG/0.5 ML VIAL.NEB NEB SCH ×4 (01:30→19:59)
[2016-06-19] MEDS: OMEPRAZOLE 20 MG CAPSULE.DR GT SCH (05:06)
[2016-06-19] MEDS: POLYVINYL ALCOHOL 15 ML BOTTLE EACHEYE SCH ×3 (05:06→21:07)
[2016-06-19 07:41] VITALS: BP 106/53
[2016-06-19] MEDS: MULTIVITAMINS,THERAGRAN 1 UDTAB TABLET GT SCH (09:58)
[2016-06-19] MEDS: PROSOURCE / PROSTAT (PYXIS) 30 ML UDC GT SCH (09:58)
[2016-06-19] MEDS: ASCORBIC ACID 500 MG TABLET GT SCH (09:58)
[2016-06-19] MEDS: CHLORHEXIDINE GLUCONATE 15 ML UDC MM SCH ×2 (09:58→17:00)
[2016-06-19] MEDS: SERTRALINE HCL 25 MG TABLET GT SCH (09:58)
[2016-06-19] MEDS: NEOMY SULF/BACITRAC ZN/POLY 15 GM TUBE TP SCH ×2 (09:59→21:07)
[2016-06-19] MEDS: Z GUARD REMEDY 4 OZ OINT TP SCH ×2 (09:59→21:07)
[2016-06-19] MEDS: MINERAL OIL/PETROL OINT 396 GM JAR TP SCH ×2 (09:59→21:07)
[2016-06-19] MEDS: HYDROGEN PEROXIDE 480 ML BOTTLE TP SCH ×2 (09:59→21:07)
--- NOTE | 2016-06-19 16:12 | NUR ---
Seen and examined by Isidra Ayala NP no new order given.
[2016-06-19 19:34] VITALS: BP 107/67
[2016-06-20] MEDS: SUCRALFATE 1 G/10 ML UDC GT SCH ×6 (00:07→21:33)
[2016-06-20] MEDS: IPRATROPIUM NEB FS 0.5 MG/2.5 ML AMPUL.NEB IH SCH ×4 (01:35→19:49)
[2016-06-20] MEDS: ALBUTEROL FS 2.5 MG/0.5 ML VIAL.NEB NEB SCH ×4 (01:35→19:49)
[2016-06-20] MEDS: OMEPRAZOLE 20 MG CAPSULE.DR GT SCH (05:36)
[2016-06-20] MEDS: POLYVINYL ALCOHOL 15 ML BOTTLE EACHEYE SCH ×3 (05:36→21:33)
[2016-06-20] MEDS: FIBERSOURCE HN 1,000 ML BOTTLE GT PRN (05:37)
[2016-06-20 07:27] VITALS: BP 104/64
[2016-06-20] MEDS: MINERAL OIL/PETROL OINT 396 GM JAR TP SCH ×2 (09:47→21:33)
[2016-06-20] MEDS: ASCORBIC ACID 500 MG TABLET GT SCH (09:47)
[2016-06-20] MEDS: MULTIVITAMINS,THERAGRAN 1 UDTAB TABLET GT SCH (09:47)
[2016-06-20] MEDS: CHLORHEXIDINE GLUCONATE 15 ML UDC MM SCH ×2 (09:47→17:00)
[2016-06-20] MEDS: SERTRALINE HCL 25 MG TABLET GT SCH (09:47)
[2016-06-20] MEDS: PROSOURCE / PROSTAT (PYXIS) 30 ML UDC GT SCH (09:47)
[2016-06-20] MEDS: HYDROGEN PEROXIDE 480 ML BOTTLE TP SCH ×2 (09:47→21:33)
[2016-06-20] MEDS: NEOMY SULF/BACITRAC ZN/POLY 15 GM TUBE TP SCH ×2 (09:47→21:33)
[2016-06-20] MEDS: Z GUARD REMEDY 4 OZ OINT TP SCH ×2 (09:48→21:34)
--- NOTE | 2016-06-20 12:13 | NUR ---
Spoke to sister Elizabeth who stated that she was going to be here Thursday-Thursday to see the resident. Stated she was worried that his SSI checks have been piling up and no one has access to his accounts. GONZALO spoke to Elizabeth about establishing durable power of city attorney for finances and she stated that Olivia (his dtr) can be appointed the agent. GONZALO has spoken to Olivia before about this but she has not made any arrangements. GONZALO stated to Elizabeth that a notary can come out to complete the paperwork with them. GONZALO called Olivia and left a voicemail message for her as she did not respond. Informed Elizabeth that once Olivia is on board, we can make arrangements for a notary to come out next week and that if she speaks to her, to please let her know what her wishes are. GONZALO spoke to the patient who acknowledged that he was okay with his daughter Olivia having control of his finances. GONZALO will follow up.
--- NOTE | 2016-06-20 12:40 | NUR ---
Received a call from Olivia Olivo (resident's daughter). She stated that yes she wants to do the [facility] paperwork so that she can have control of resident's finances in order to buy him the things that he needs. She reports that she does not trust the resident's siblings. She stated that her car is currently broken but she will be here on Thursday to see him. She noted that she can call a notary then or make arrangements for the social sciences research scientist to call ahead of time if she knows what time she is coming. She stated that she will keep SW informed.
--- NOTE | 2016-06-20 13:03 | NUR ---
Seen by Dr. Del Toro, psychiatrist, reviewed current psychotropic medication, dosing and episode of the manifested behavior. Reported that resident is refusing care such as brushing teeth, bath and suctioning. No new order given at this time.
[2016-06-20 19:52] VITALS: BP 107/70
[2016-06-21] MEDS: SUCRALFATE 1 G/10 ML UDC GT SCH ×6 (00:43→20:24)
[2016-06-21] MEDS: IPRATROPIUM NEB FS 0.5 MG/2.5 ML AMPUL.NEB IH SCH ×4 (01:28→19:28)
[2016-06-21] MEDS: ALBUTEROL FS 2.5 MG/0.5 ML VIAL.NEB NEB SCH ×4 (01:28→19:28)
[2016-06-21] MEDS: MORPHINE SULFATE SOLN CONCENTRATED 20 MG/ML GT PRN (04:39)
[2016-06-21] MEDS: POLYVINYL ALCOHOL 15 ML BOTTLE EACHEYE SCH ×3 (05:00→20:24)
[2016-06-21] MEDS: OMEPRAZOLE 20 MG CAPSULE.DR GT SCH (06:06)
[2016-06-21 07:48] VITALS: BP 138/77
[2016-06-21] MEDS: CHLORHEXIDINE GLUCONATE 15 ML UDC MM SCH ×2 (09:00→17:00)
[2016-06-21] MEDS: PROSOURCE / PROSTAT (PYXIS) 30 ML UDC GT SCH (09:29)
[2016-06-21] MEDS: HYDROGEN PEROXIDE 480 ML BOTTLE TP SCH ×2 (09:29→20:24)
[2016-06-21] MEDS: SERTRALINE HCL 25 MG TABLET GT SCH (09:29)
[2016-06-21] MEDS: ASCORBIC ACID 500 MG TABLET GT SCH (09:29)
[2016-06-21] MEDS: MINERAL OIL/PETROL OINT 396 GM JAR TP SCH ×2 (09:29→20:24)
[2016-06-21] MEDS: MULTIVITAMINS,THERAGRAN 1 UDTAB TABLET GT SCH (09:29)
[2016-06-21] MEDS: Z GUARD REMEDY 4 OZ OINT TP SCH ×2 (09:30→20:24)
[2016-06-21] MEDS: NEOMY SULF/BACITRAC ZN/POLY 15 GM TUBE TP SCH ×2 (09:30→20:24)
[2016-06-21] MEDS: FIBERSOURCE HN 1,000 ML BOTTLE GT PRN (13:14)
[2016-06-21 19:55] VITALS: BP 104/67
[2016-06-22] MEDS: ALBUTEROL FS 2.5 MG/0.5 ML VIAL.NEB NEB SCH ×4 (00:59→19:29)
[2016-06-22] MEDS: IPRATROPIUM NEB FS 0.5 MG/2.5 ML AMPUL.NEB IH SCH ×4 (00:59→19:29)
[2016-06-22] MEDS: SUCRALFATE 1 G/10 ML UDC GT SCH ×6 (01:52→21:15)
[2016-06-22] MEDS: FIBERSOURCE HN 1,000 ML BOTTLE GT PRN (01:53)
[2016-06-22] MEDS: POLYVINYL ALCOHOL 15 ML BOTTLE EACHEYE SCH ×3 (05:44→21:15)
[2016-06-22] MEDS: OMEPRAZOLE 20 MG CAPSULE.DR GT SCH (05:44)
[2016-06-22 07:53] VITALS: BP 115/66
[2016-06-22] MEDS: HYDROGEN PEROXIDE 480 ML BOTTLE TP SCH ×2 (09:00→21:15)
[2016-06-22] MEDS: MINERAL OIL/PETROL OINT 396 GM JAR TP SCH (09:00)
[2016-06-22] MEDS: Z GUARD REMEDY 4 OZ OINT TP SCH ×2 (09:00→21:15)
[2016-06-22] MEDS: NEOMY SULF/BACITRAC ZN/POLY 15 GM TUBE TP SCH ×2 (09:00→21:15)
[2016-06-22] MEDS: SERTRALINE HCL 25 MG TABLET GT SCH (09:19)
[2016-06-22] MEDS: CHLORHEXIDINE GLUCONATE 15 ML UDC MM SCH ×2 (09:19→16:25)
[2016-06-22] MEDS: ASCORBIC ACID 500 MG TABLET GT SCH (09:19)
[2016-06-22] MEDS: PROSOURCE / PROSTAT (PYXIS) 30 ML UDC GT SCH (09:19)
[2016-06-22] MEDS: MULTIVITAMINS,THERAGRAN 1 UDTAB TABLET GT SCH (09:19)
[2016-06-22 19:38] VITALS: BP 110/69
[2016-06-23] MEDS: SUCRALFATE 1 G/10 ML UDC GT SCH ×6 (00:05→21:58)
[2016-06-23] MEDS: IPRATROPIUM NEB FS 0.5 MG/2.5 ML AMPUL.NEB IH SCH ×4 (01:21→20:25)
[2016-06-23] MEDS: ALBUTEROL FS 2.5 MG/0.5 ML VIAL.NEB NEB SCH ×4 (01:21→20:26)
[2016-06-23] MEDS: POLYVINYL ALCOHOL 15 ML BOTTLE EACHEYE SCH ×3 (05:39→21:11)
[2016-06-23] MEDS: OMEPRAZOLE 20 MG CAPSULE.DR GT SCH (05:39)
[2016-06-23 08:10] VITALS: BP 108/68
[2016-06-23] MEDS: CHLORHEXIDINE GLUCONATE 15 ML UDC MM SCH ×2 (09:14→16:30)
[2016-06-23] MEDS: PROSOURCE / PROSTAT (PYXIS) 30 ML UDC GT SCH (09:14)
[2016-06-23] MEDS: MULTIVITAMINS,THERAGRAN 1 UDTAB TABLET GT SCH (09:14)
[2016-06-23] MEDS: ASCORBIC ACID 500 MG TABLET GT SCH (09:14)
[2016-06-23] MEDS: SERTRALINE HCL 25 MG TABLET GT SCH (09:14)
[2016-06-23] MEDS: HYDROGEN PEROXIDE 480 ML BOTTLE TP SCH ×2 (10:30→21:11)
[2016-06-23] MEDS: Z GUARD REMEDY 4 OZ OINT TP SCH ×2 (10:30→21:11)
[2016-06-23] MEDS: NEOMY SULF/BACITRAC ZN/POLY 15 GM TUBE TP SCH ×2 (10:30→21:11)
[2016-06-23] MEDS: FIBERSOURCE HN 1,000 ML BOTTLE GT PRN (10:41)
--- NOTE | 2016-06-23 16:00 | NUR ---
Pt's sister Elizabeth came to visit. She said she will come back tonight.
--- NOTE | 2016-06-23 19:27 | NUR ---
Pt's G-tube was out with balloon intact. Replaced G-tube. Pt tolerated procedure well. Notified Dr. Nayak and received order to do KUB to verify G-tube placement.
[2016-06-23 19:42] VITALS: BP 113/64
[2016-06-23] MEDS ORDERED: DIATR MEGLU/DIATRIZOATE SODIUM 30 ML BOTTLE (GASTROGRAPHIN) ONE (20:20)
--- NOTE | 2016-06-23 20:31 | NUR ---
xray came ,instilled gastrografin liquid to GT and flushed. then xray obtained, awaiting for result.
--- NOTE | 2016-06-23 21:20 | NUR ---
xray resulted, Dr. Pastor on-call made aware and read the report says " GT in place with tip in the gastric lumen" and she ordered ok to use.
[2016-06-24] MEDS: SUCRALFATE 1 G/10 ML UDC GT SCH ×6 (00:12→20:42)
[2016-06-24] MEDS: IPRATROPIUM NEB FS 0.5 MG/2.5 ML AMPUL.NEB IH SCH ×4 (02:21→20:23)
[2016-06-24] MEDS: ALBUTEROL FS 2.5 MG/0.5 ML VIAL.NEB NEB SCH ×4 (02:21→20:23)
[2016-06-24] MEDS: OMEPRAZOLE 20 MG CAPSULE.DR GT SCH (05:49)
[2016-06-24] MEDS: POLYVINYL ALCOHOL 15 ML BOTTLE EACHEYE SCH ×3 (05:49→20:42)
[2016-06-24] MEDS: FIBERSOURCE HN 1,000 ML BOTTLE GT PRN ×2 (05:49→18:13)
[2016-06-24 07:33] VITALS: BP 103/59
[2016-06-24] MEDS: MULTIVITAMINS,THERAGRAN 1 UDTAB TABLET GT SCH (09:00)
[2016-06-24] MEDS: PROSOURCE / PROSTAT (PYXIS) 30 ML UDC GT SCH (09:00)
[2016-06-24] MEDS: SERTRALINE HCL 25 MG TABLET GT SCH (09:00)
[2016-06-24] MEDS: ASCORBIC ACID 500 MG TABLET GT SCH (09:00)
[2016-06-24] MEDS: CHLORHEXIDINE GLUCONATE 15 ML UDC MM SCH ×2 (09:00→16:28)
--- NOTE | 2016-06-24 09:48 | NUR ---
Seen by Dr Reese spoke with pt sister Diego answered all her concerns. ordered PMV as needed when family on bedside.
--- NOTE | 2016-06-24 10:22 | NUR ---
Pt placed on PMV per MD order. PMV was tolerated well for 30 minutes.
[2016-06-24] MEDS: Z GUARD REMEDY 4 OZ OINT TP SCH ×2 (15:00→20:43)
[2016-06-24] MEDS: NEOMY SULF/BACITRAC ZN/POLY 15 GM TUBE TP SCH ×2 (15:00→20:42)
[2016-06-24] MEDS: HYDROGEN PEROXIDE 480 ML BOTTLE TP SCH ×2 (15:00→20:42)
[2016-06-24 19:58] VITALS: BP 118/70
[2016-06-25] MEDS: SUCRALFATE 1 G/10 ML UDC GT SCH ×6 (00:17→21:51)
[2016-06-25] MEDS: ALBUTEROL FS 2.5 MG/0.5 ML VIAL.NEB NEB SCH ×4 (01:12→19:52)
[2016-06-25] MEDS: IPRATROPIUM NEB FS 0.5 MG/2.5 ML AMPUL.NEB IH SCH ×4 (01:12→19:52)
[2016-06-25] MEDS: OMEPRAZOLE 20 MG CAPSULE.DR GT SCH (05:42)
[2016-06-25] MEDS: POLYVINYL ALCOHOL 15 ML BOTTLE EACHEYE SCH ×3 (05:42→21:51)
[2016-06-25 07:38] VITALS: BP 102/68
[2016-06-25] MEDS: MULTIVITAMINS,THERAGRAN 1 UDTAB TABLET GT SCH (09:19)
[2016-06-25] MEDS: CHLORHEXIDINE GLUCONATE 15 ML UDC MM SCH ×2 (09:19→17:55)
[2016-06-25] MEDS: SERTRALINE HCL 25 MG TABLET GT SCH (09:19)
[2016-06-25] MEDS: HYDROGEN PEROXIDE 480 ML BOTTLE TP SCH ×2 (09:19→21:51)
[2016-06-25] MEDS: ASCORBIC ACID 500 MG TABLET GT SCH (09:19)
[2016-06-25] MEDS: NEOMY SULF/BACITRAC ZN/POLY 15 GM TUBE TP SCH ×2 (09:19→21:51)
[2016-06-25] MEDS: PROSOURCE / PROSTAT (PYXIS) 30 ML UDC GT SCH (09:19)
[2016-06-25] MEDS: Z GUARD REMEDY 4 OZ OINT TP SCH ×2 (09:19→21:51)
[2016-06-25] MEDS: FIBERSOURCE HN 1,000 ML BOTTLE GT PRN (11:33)
[2016-06-25] MEDS ORDERED: SUCRALFATE 1 G/10 ML UDC GT SCH (17:00)
[2016-06-25 20:27] VITALS: BP 101/62
[2016-06-25] MEDS: ACETAMINOPHEN 650 MG/20 ML UDC- FOR SA PATIENTS ONLY GT PRN (21:57)
[2016-06-26] MEDS: SUCRALFATE 1 G/10 ML UDC GT SCH ×6 (00:54→21:40)
[2016-06-26] MEDS: FIBERSOURCE HN 1,000 ML BOTTLE GT PRN ×2 (00:54→18:29)
[2016-06-26] MEDS: IPRATROPIUM NEB FS 0.5 MG/2.5 ML AMPUL.NEB IH SCH ×4 (01:30→19:36)
[2016-06-26] MEDS: ALBUTEROL FS 2.5 MG/0.5 ML VIAL.NEB NEB SCH ×4 (01:30→19:36)
[2016-06-26] MEDS: OMEPRAZOLE 20 MG CAPSULE.DR GT SCH (05:06)
[2016-06-26] MEDS: POLYVINYL ALCOHOL 15 ML BOTTLE EACHEYE SCH ×3 (05:06→21:40)
[2016-06-26 07:42] VITALS: BP 128/69
[2016-06-26] MEDS: CHLORHEXIDINE GLUCONATE 15 ML UDC MM SCH ×2 (09:00→17:00)
[2016-06-26] MEDS: MULTIVITAMINS,THERAGRAN 1 UDTAB TABLET GT SCH (09:00)
[2016-06-26] MEDS: PROSOURCE / PROSTAT (PYXIS) 30 ML UDC GT SCH (09:00)
[2016-06-26] MEDS: NEOMY SULF/BACITRAC ZN/POLY 15 GM TUBE TP SCH ×2 (09:00→21:40)
[2016-06-26] MEDS: HYDROGEN PEROXIDE 480 ML BOTTLE TP SCH ×2 (09:00→21:40)
[2016-06-26] MEDS: Z GUARD REMEDY 4 OZ OINT TP SCH ×2 (09:00→21:40)
[2016-06-26] MEDS: ASCORBIC ACID 500 MG TABLET GT SCH (09:00)
[2016-06-26] MEDS: SERTRALINE HCL 25 MG TABLET GT SCH (09:00)
--- NOTE | 2016-06-26 13:30 | NUR ---
Seen by Isidra Ayala NP with no new order.
[2016-06-26 19:45] VITALS: BP 115/74
[2016-06-27] MEDS: SUCRALFATE 1 G/10 ML UDC GT SCH ×6 (00:05→21:25)
[2016-06-27] MEDS: ALBUTEROL FS 2.5 MG/0.5 ML VIAL.NEB NEB SCH ×4 (01:50→19:01)
[2016-06-27] MEDS: IPRATROPIUM NEB FS 0.5 MG/2.5 ML AMPUL.NEB IH SCH ×4 (01:50→19:01)
[2016-06-27] MEDS: POLYVINYL ALCOHOL 15 ML BOTTLE EACHEYE SCH ×3 (05:00→21:24)
[2016-06-27] MEDS: OMEPRAZOLE 20 MG CAPSULE.DR GT SCH (06:08)
[2016-06-27] MEDS: FIBERSOURCE HN 1,000 ML BOTTLE GT PRN ×2 (06:08→21:25)
[2016-06-27 07:50] VITALS: BP 126/74
[2016-06-27] MEDS: PROSOURCE / PROSTAT (PYXIS) 30 ML UDC GT SCH (09:00)
[2016-06-27] MEDS: CHLORHEXIDINE GLUCONATE 15 ML UDC MM SCH ×2 (09:00→17:00)
[2016-06-27] MEDS: NEOMY SULF/BACITRAC ZN/POLY 15 GM TUBE TP SCH ×2 (09:00→21:25)
[2016-06-27] MEDS: SERTRALINE HCL 25 MG TABLET GT SCH (09:00)
[2016-06-27] MEDS: MULTIVITAMINS,THERAGRAN 1 UDTAB TABLET GT SCH (09:00)
[2016-06-27] MEDS: Z GUARD REMEDY 4 OZ OINT TP SCH ×2 (09:00→21:25)
[2016-06-27] MEDS: HYDROGEN PEROXIDE 480 ML BOTTLE TP SCH ×2 (09:00→21:25)
[2016-06-27] MEDS: ASCORBIC ACID 500 MG TABLET GT SCH (09:00)
--- NOTE | 2016-06-27 10:27 | NUR ---
Seen and examined by Dr. Vance no new order given.
--- NOTE | 2016-06-27 14:00 | NUR ---
IDT meeting held, reviewed medications, treatment and labs. New order given to start weaning resident on Thursday07/01/16 and also for PT eval evaluate ability to sit in wheelchair. All orders noted and carried out. Resident informed.
--- NOTE | 2016-06-27 18:10 | NUR ---
Episode of being combative and refusing oral care, explained risks and benefits x3, still refused, charge nurse made aware.
[2016-06-27 19:39] VITALS: BP 129/73
[2016-06-28] MEDS: SUCRALFATE 1 G/10 ML UDC GT SCH ×6 (00:26→20:41)
[2016-06-28] MEDS: ALBUTEROL FS 2.5 MG/0.5 ML VIAL.NEB NEB SCH ×4 (01:20→19:02)
[2016-06-28] MEDS: IPRATROPIUM NEB FS 0.5 MG/2.5 ML AMPUL.NEB IH SCH ×4 (01:20→19:02)
[2016-06-28] MEDS: OMEPRAZOLE 20 MG CAPSULE.DR GT SCH (05:05)
[2016-06-28] MEDS: POLYVINYL ALCOHOL 15 ML BOTTLE EACHEYE SCH ×3 (05:05→20:41)
[2016-06-28 07:56] VITALS: BP 131/83
[2016-06-28] MEDS: CHLORHEXIDINE GLUCONATE 15 ML UDC MM SCH ×2 (09:00→17:22)
[2016-06-28] MEDS: HYDROGEN PEROXIDE 480 ML BOTTLE TP SCH ×2 (09:16→20:41)
[2016-06-28] MEDS: NEOMY SULF/BACITRAC ZN/POLY 15 GM TUBE TP SCH ×2 (09:16→20:41)
[2016-06-28] MEDS: Z GUARD REMEDY 4 OZ OINT TP SCH ×2 (09:16→20:41)
[2016-06-28] MEDS: ASCORBIC ACID 500 MG TABLET GT SCH (09:16)
[2016-06-28] MEDS: PROSOURCE / PROSTAT (PYXIS) 30 ML UDC GT SCH (09:16)
[2016-06-28] MEDS: MULTIVITAMINS,THERAGRAN 1 UDTAB TABLET GT SCH (09:16)
[2016-06-28] MEDS: SERTRALINE HCL 25 MG TABLET GT SCH (09:16)
[2016-06-28 19:45] VITALS: BP 126/77
[2016-06-29] MEDS: SUCRALFATE 1 G/10 ML UDC GT SCH ×6 (01:17→21:14)
[2016-06-29] MEDS: ALBUTEROL FS 2.5 MG/0.5 ML VIAL.NEB NEB SCH ×4 (01:31→19:24)
[2016-06-29] MEDS: IPRATROPIUM NEB FS 0.5 MG/2.5 ML AMPUL.NEB IH SCH ×4 (01:31→19:24)
[2016-06-29] MEDS: POLYVINYL ALCOHOL 15 ML BOTTLE EACHEYE SCH ×3 (05:40→21:14)
[2016-06-29] MEDS: OMEPRAZOLE 20 MG CAPSULE.DR GT SCH (05:41)
[2016-06-29] MEDS: FIBERSOURCE HN 1,000 ML BOTTLE GT PRN (05:44)
[2016-06-29 08:09] VITALS: BP 116/69
[2016-06-29] MEDS: HYDROGEN PEROXIDE 480 ML BOTTLE TP SCH ×2 (09:53→21:14)
[2016-06-29] MEDS: PROSOURCE / PROSTAT (PYXIS) 30 ML UDC GT SCH (09:53)
[2016-06-29] MEDS: MULTIVITAMINS,THERAGRAN 1 UDTAB TABLET GT SCH (09:53)
[2016-06-29] MEDS: CHLORHEXIDINE GLUCONATE 15 ML UDC MM SCH ×2 (09:53→17:25)
[2016-06-29] MEDS: SERTRALINE HCL 25 MG TABLET GT SCH (09:53)
[2016-06-29] MEDS: NEOMY SULF/BACITRAC ZN/POLY 15 GM TUBE TP SCH ×2 (09:53→21:14)
[2016-06-29] MEDS: ASCORBIC ACID 500 MG TABLET GT SCH (09:53)
[2016-06-29] MEDS: Z GUARD REMEDY 4 OZ OINT TP SCH ×2 (09:54→21:14)
[2016-06-29 20:08] VITALS: BP 116/69
[2016-06-30] MEDS: SUCRALFATE 1 G/10 ML UDC GT SCH ×6 (00:29→21:06)
[2016-06-30] MEDS: ALBUTEROL FS 2.5 MG/0.5 ML VIAL.NEB NEB SCH ×4 (01:30→19:06)
[2016-06-30] MEDS: IPRATROPIUM NEB FS 0.5 MG/2.5 ML AMPUL.NEB IH SCH ×4 (01:30→19:06)
[2016-06-30] MEDS: POLYVINYL ALCOHOL 15 ML BOTTLE EACHEYE SCH ×3 (05:25→21:06)
[2016-06-30] MEDS: OMEPRAZOLE 20 MG CAPSULE.DR GT SCH (05:25)
[2016-06-30 07:39] VITALS: BP_SYST 108; BP_SYST 97; BP_DIAS 46; BP_DIAS 69
[2016-06-30] MEDS: CHLORHEXIDINE GLUCONATE 15 ML UDC MM SCH ×2 (09:48→17:41)
[2016-06-30] MEDS: ASCORBIC ACID 500 MG TABLET GT SCH (09:48)
[2016-06-30] MEDS: SERTRALINE HCL 25 MG TABLET GT SCH (09:48)
[2016-06-30] MEDS: PROSOURCE / PROSTAT (PYXIS) 30 ML UDC GT SCH (09:48)
[2016-06-30] MEDS: MULTIVITAMINS,THERAGRAN 1 UDTAB TABLET GT SCH (09:48)
[2016-06-30] MEDS: NEOMY SULF/BACITRAC ZN/POLY 15 GM TUBE TP SCH ×2 (13:00→21:07)
[2016-06-30] MEDS: Z GUARD REMEDY 4 OZ OINT TP SCH ×2 (13:00→21:07)
[2016-06-30] MEDS: HYDROGEN PEROXIDE 480 ML BOTTLE TP SCH ×2 (13:00→21:06)
--- NOTE | 2016-06-30 15:40 | NUR ---
Seen by PT Charisma. Received order to get pt out of bed, up in gerichair 1 to 2 times a week as tolerated.
--- NOTE | 2016-06-30 15:45 | NUR ---
Rashes noted on the pt's buttocks. Received order to apply Lotrimin cream q shift and PRN x 14 days. Pt aware of rashes and treatment.
[2016-06-30] MEDS ORDERED: CLOTRIMAZOLE 1% CREAM 24 GM TUBE TP PRN (18:00)
[2016-06-30] MEDS: FIBERSOURCE HN 1,000 ML BOTTLE GT PRN (18:00)
[2016-06-30 19:54] VITALS: BP 135/73
[2016-06-30] MEDS: CLOTRIMAZOLE 1% CREAM 24 GM TUBE TP SCH (21:06)
[2016-07-01] MEDS: SUCRALFATE 1 G/10 ML UDC GT SCH ×6 (00:12→20:19)
[2016-07-01] MEDS: IPRATROPIUM NEB FS 0.5 MG/2.5 ML AMPUL.NEB IH SCH ×4 (01:35→19:44)
[2016-07-01] MEDS: ALBUTEROL FS 2.5 MG/0.5 ML VIAL.NEB NEB SCH ×4 (01:35→19:44)
[2016-07-01] MEDS: OMEPRAZOLE 20 MG CAPSULE.DR GT SCH (05:35)
[2016-07-01] MEDS: POLYVINYL ALCOHOL 15 ML BOTTLE EACHEYE SCH ×3 (05:35→20:19)
[2016-07-01] MEDS: FIBERSOURCE HN 1,000 ML BOTTLE GT PRN ×2 (07:14→19:25)
[2016-07-01 07:47] VITALS: BP 123/66
[2016-07-01] MEDS: CHLORHEXIDINE GLUCONATE 15 ML UDC MM SCH ×2 (08:57→16:42)
[2016-07-01] MEDS: SERTRALINE HCL 25 MG TABLET GT SCH (08:57)
[2016-07-01] MEDS: PROSOURCE / PROSTAT (PYXIS) 30 ML UDC GT SCH (08:57)
[2016-07-01] MEDS: MULTIVITAMINS,THERAGRAN 1 UDTAB TABLET GT SCH (08:57)
[2016-07-01] MEDS: ASCORBIC ACID 500 MG TABLET GT SCH (08:57)
[2016-07-01 10:15] LABS: ABG OXYGEN SATURATION 84.7 % (92.0-98.5); ABG PCO2 47.1 mmHg (35.0-45.0); ABG PH 7.423 (7.350-7.450); ABG PO2 50.5 mmHg (75.0-100.0); AaDO2 180.5 mmHg; COHb 0.9 % (0.5-1.5); MetHb 1.1 % (0.0-1.5); PEEP,BG 5 cm H2O; SITE, ABG Right Radial
--- NOTE | 2016-07-01 10:23 | NUR ---
Pt was placed on SIMV mode. ABG result relayed to Dr. Reese. Received order to place pt back on AC mode. Notified RT
--- NOTE | 2016-07-01 10:25 | NUR ---
Received a call from dtr Olivia Olivo who reported that she will be here tomorrow around 1pm and she wants to complete both the financial DPOA and advanced health care directive forms for resident. For the advanced healthcare directive, tarik needs to be present. GONZALO called the [place] Ombudsman office ([phone]) and spoke to Rahel. She stated that her code enforcement supervisor will go to the hospital to see and speak with resident. She was informed that daughter did not need to be present and that the form needs to be filled out prior to her coming. Ombudsman office will also bring along two witnesses as resident is unable to sign his name. SW left her contact information with Rahel in case she needs to be contacted. Dtr Olivia informed. GONZALO also arranged for a mobile notary to come and complete documents with daughter and resident (Leo logan -Always Available notary- [phone]). He stated that the fee will be 70 dollars. Informed dtamanda Baker who stated that this is okay. Olivia stated that she will be here tomorrow at 1pm and mobile notary said 1pm is fine. Addendum: 07/01/16 at 1057 by CAROLINE SÁNCHEZ Resident in agreement
[2016-07-01] MEDS: CLOTRIMAZOLE 1% CREAM 24 GM TUBE TP SCH ×2 (14:00→20:19)
[2016-07-01] MEDS: NEOMY SULF/BACITRAC ZN/POLY 15 GM TUBE TP SCH ×3 (14:00→21:11)
[2016-07-01] MEDS: Z GUARD REMEDY 4 OZ OINT TP SCH ×2 (14:00→20:20)
[2016-07-01] MEDS: HYDROGEN PEROXIDE 480 ML BOTTLE TP SCH ×2 (14:00→20:19)
[2016-07-01 20:03] VITALS: BP 103/60
--- NOTE | 2016-07-01 21:00 | NUR ---
RN NOTES Received new order from Dr. Vance: Right upper arm skin tear: cleanse with NS, pat dry. Apply triple ATB oint, cover with transparent dressing q3 days x 7 days, noted and carried out.
[2016-07-02] MEDS: ALBUTEROL FS 2.5 MG/0.5 ML VIAL.NEB NEB SCH ×4 (00:55→19:28)
[2016-07-02] MEDS: IPRATROPIUM NEB FS 0.5 MG/2.5 ML AMPUL.NEB IH SCH ×4 (00:55→19:28)
[2016-07-02] MEDS: SUCRALFATE 1 G/10 ML UDC GT SCH ×6 (01:19→21:26)
[2016-07-02] MEDS: OMEPRAZOLE 20 MG CAPSULE.DR GT SCH (05:42)
[2016-07-02] MEDS: POLYVINYL ALCOHOL 15 ML BOTTLE EACHEYE SCH ×3 (05:42→21:26)
[2016-07-02 08:00] VITALS: BP 123/63
[2016-07-02] MEDS: HYDROGEN PEROXIDE 480 ML BOTTLE TP SCH ×2 (08:14→21:26)
[2016-07-02] MEDS: SERTRALINE HCL 25 MG TABLET GT SCH (08:14)
[2016-07-02] MEDS: CLOTRIMAZOLE 1% CREAM 24 GM TUBE TP SCH ×2 (08:14→21:26)
[2016-07-02] MEDS: ASCORBIC ACID 500 MG TABLET GT SCH (08:14)
[2016-07-02] MEDS: Z GUARD REMEDY 4 OZ OINT TP SCH ×2 (08:14→21:26)
[2016-07-02] MEDS: PROSOURCE / PROSTAT (PYXIS) 30 ML UDC GT SCH (08:14)
[2016-07-02] MEDS: CHLORHEXIDINE GLUCONATE 15 ML UDC MM SCH ×2 (08:14→17:29)
[2016-07-02] MEDS: NEOMY SULF/BACITRAC ZN/POLY 15 GM TUBE TP SCH ×2 (08:14→21:26)
[2016-07-02] MEDS: MULTIVITAMINS,THERAGRAN 1 UDTAB TABLET GT SCH (08:14)
--- NOTE | 2016-07-02 13:30 | NUR ---
Financial DPOA paperwork was completed with resident, resident's daughter, and the notary. Olivia was given original copy and SW placed copy in resident's chart. For advanced healthcare directive, alexis does not have to be present as ombudsman will be bringing in two witnesses. Dtr Olivia informed.
--- NOTE | 2016-07-02 14:05 | NUR ---
Seen by Dr Vance with no new order.
--- NOTE | 2016-07-02 14:48 | NUR ---
Catherine Baker stated that she would like for resident to be up in the [facility]. Notified that there is a current order to place resident in [facility] 1-2x/week as tolerated. She stated that she will be here tomorrow but did not give a time and would like to see him in [facility]. GONZALO asked Olivia to please notify her prior to coming so that she can alert the staff. Will follow up. Addendum: 07/03/16 at 1549 by CAROLINE SÁNCHEZ Catherine johnsa called GONZALO to state that she will not be coming today , as she has migraine. Stated she will be here next week.
--- NOTE | 2016-07-02 17:30 | NUR ---
Seen by Isidra Ayala NP with no new order.
[2016-07-02 19:42] VITALS: BP 113/78
[2016-07-03] MEDS: SUCRALFATE 1 G/10 ML UDC GT SCH ×6 (00:08→20:54)
[2016-07-03] MEDS: FIBERSOURCE HN 1,000 ML BOTTLE GT PRN ×2 (00:58→21:06)
[2016-07-03] MEDS: ALBUTEROL FS 2.5 MG/0.5 ML VIAL.NEB NEB SCH ×4 (01:30→19:11)
[2016-07-03] MEDS: IPRATROPIUM NEB FS 0.5 MG/2.5 ML AMPUL.NEB IH SCH ×4 (01:30→19:11)
[2016-07-03] MEDS: OMEPRAZOLE 20 MG CAPSULE.DR GT SCH (05:45)
[2016-07-03] MEDS: POLYVINYL ALCOHOL 15 ML BOTTLE EACHEYE SCH ×3 (05:45→20:54)
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
[2016-07-03 07:35] VITALS: BP 120/71
[2016-07-03] MEDS: SERTRALINE HCL 25 MG TABLET GT SCH (08:12)
[2016-07-03] MEDS: MULTIVITAMINS,THERAGRAN 1 UDTAB TABLET GT SCH (08:12)
[2016-07-03] MEDS: ASCORBIC ACID 500 MG TABLET GT SCH (08:12)
[2016-07-03] MEDS: PROSOURCE / PROSTAT (PYXIS) 30 ML UDC GT SCH (08:12)
[2016-07-03] MEDS: HYDROGEN PEROXIDE 480 ML BOTTLE TP SCH ×2 (08:13→20:55)
[2016-07-03] MEDS: Z GUARD REMEDY 4 OZ OINT TP SCH ×2 (08:14→20:55)
[2016-07-03] MEDS: CHLORHEXIDINE GLUCONATE 15 ML UDC MM SCH ×2 (08:14→17:30)
[2016-07-03] MEDS: CLOTRIMAZOLE 1% CREAM 24 GM TUBE TP SCH ×2 (08:14→20:55)
--- NOTE | 2016-07-03 14:30 | NUR ---
Talked with resident as he was refusing oral care. Stated to him that his lips have dried blood on them and eventually agreed to have nursing clean it for him. However, when nurse came he refused to let her put the oral swab in his mouth for oral care. Nurse did put moisturizer on his lips which resident was okay with. Nursing will attempt at a later time to do oral care for resident. Currently refusing.
[2016-07-03 19:51] VITALS: BP 126/75
[2016-07-04] MEDS: ALBUTEROL FS 2.5 MG/0.5 ML VIAL.NEB NEB SCH ×4 (00:30→20:18)
[2016-07-04] MEDS: IPRATROPIUM NEB FS 0.5 MG/2.5 ML AMPUL.NEB IH SCH ×4 (00:30→20:17)
[2016-07-04] MEDS: SUCRALFATE 1 G/10 ML UDC GT SCH ×6 (00:56→21:13)
[2016-07-04] MEDS: POLYVINYL ALCOHOL 15 ML BOTTLE EACHEYE SCH ×3 (05:00→21:13)
[2016-07-04] MEDS: OMEPRAZOLE 20 MG CAPSULE.DR GT SCH (06:00)
[2016-07-04 08:22] VITALS: BP 118/75
[2016-07-04] MEDS: CHLORHEXIDINE GLUCONATE 15 ML UDC MM SCH ×2 (08:43→16:24)
[2016-07-04] MEDS: ASCORBIC ACID 500 MG TABLET GT SCH (08:43)
[2016-07-04] MEDS: PROSOURCE / PROSTAT (PYXIS) 30 ML UDC GT SCH (08:43)
[2016-07-04] MEDS: MULTIVITAMINS,THERAGRAN 1 UDTAB TABLET GT SCH (08:43)
[2016-07-04] MEDS: CLOTRIMAZOLE 1% CREAM 24 GM TUBE TP SCH ×2 (08:44→21:13)
[2016-07-04] MEDS: Z GUARD REMEDY 4 OZ OINT TP SCH ×2 (08:44→21:14)
[2016-07-04] MEDS: SERTRALINE HCL 25 MG TABLET GT SCH (08:44)
[2016-07-04] MEDS: HYDROGEN PEROXIDE 480 ML BOTTLE TP SCH ×2 (08:44→21:13)
[2016-07-04] MEDS: FIBERSOURCE HN 1,000 ML BOTTLE GT PRN (10:25)
[2016-07-04 19:41] VITALS: BP 105/69
[2016-07-04] MEDS: NEOMY SULF/BACITRAC ZN/POLY 15 GM TUBE TP SCH (21:13)
[2016-07-04] MEDS: ZINC OXIDE 30 GM TUBE TP SCH (21:14)
[2016-07-05] MEDS: FIBERSOURCE HN 1,000 ML BOTTLE GT PRN ×2 (00:22→20:20)
[2016-07-05] MEDS: SUCRALFATE 1 G/10 ML UDC GT SCH ×6 (00:22→20:19)
[2016-07-05] MEDS: IPRATROPIUM NEB FS 0.5 MG/2.5 ML AMPUL.NEB IH SCH ×4 (01:30→19:30)
[2016-07-05] MEDS: ALBUTEROL FS 2.5 MG/0.5 ML VIAL.NEB NEB SCH ×4 (01:30→20:30)
[2016-07-05] MEDS: POLYVINYL ALCOHOL 15 ML BOTTLE EACHEYE SCH ×3 (05:15→20:19)
[2016-07-05] MEDS: OMEPRAZOLE 20 MG CAPSULE.DR GT SCH (05:15)
[2016-07-05 07:38] VITALS: BP 124/77
[2016-07-05] MEDS: ASCORBIC ACID 500 MG TABLET GT SCH (08:56)
[2016-07-05] MEDS: PROSOURCE / PROSTAT (PYXIS) 30 ML UDC GT SCH (08:56)
[2016-07-05] MEDS: MULTIVITAMINS,THERAGRAN 1 UDTAB TABLET GT SCH (08:56)
[2016-07-05] MEDS: CHLORHEXIDINE GLUCONATE 15 ML UDC MM SCH ×2 (08:57→17:00)
[2016-07-05] MEDS: HYDROGEN PEROXIDE 480 ML BOTTLE TP SCH ×2 (08:57→20:20)
[2016-07-05] MEDS: SERTRALINE HCL 25 MG TABLET GT SCH (08:57)
[2016-07-05] MEDS: ZINC OXIDE 30 GM TUBE TP SCH ×2 (08:58→20:20)
[2016-07-05] MEDS: Z GUARD REMEDY 4 OZ OINT TP SCH ×2 (08:58→20:20)
[2016-07-05] MEDS: CLOTRIMAZOLE 1% CREAM 24 GM TUBE TP SCH ×2 (08:58→20:20)
[2016-07-05 19:43] VITALS: BP 113/66
[2016-07-06] MEDS: SUCRALFATE 1 G/10 ML UDC GT SCH ×6 (01:07→21:24)
[2016-07-06] MEDS: ALBUTEROL FS 2.5 MG/0.5 ML VIAL.NEB NEB SCH ×2 (02:04→19:08)
[2016-07-06] MEDS: IPRATROPIUM NEB FS 0.5 MG/2.5 ML AMPUL.NEB IH SCH ×2 (02:04→19:08)
[2016-07-06] MEDS: POLYVINYL ALCOHOL 15 ML BOTTLE EACHEYE SCH ×3 (05:50→21:24)
[2016-07-06] MEDS: OMEPRAZOLE 20 MG CAPSULE.DR GT SCH (05:50)
[2016-07-06 08:12] VITALS: BP 155/71
[2016-07-06] MEDS: MULTIVITAMINS,THERAGRAN 1 UDTAB TABLET GT SCH (08:52)
[2016-07-06] MEDS: ASCORBIC ACID 500 MG TABLET GT SCH (08:52)
[2016-07-06] MEDS: CHLORHEXIDINE GLUCONATE 15 ML UDC MM SCH ×2 (08:52→16:43)
[2016-07-06] MEDS: SERTRALINE HCL 25 MG TABLET GT SCH (08:52)
[2016-07-06] MEDS: PROSOURCE / PROSTAT (PYXIS) 30 ML UDC GT SCH (08:52)
[2016-07-06] MEDS: CLOTRIMAZOLE 1% CREAM 24 GM TUBE TP SCH ×2 (09:00→21:24)
[2016-07-06] MEDS: Z GUARD REMEDY 4 OZ OINT TP SCH ×2 (09:00→21:24)
[2016-07-06] MEDS: HYDROGEN PEROXIDE 480 ML BOTTLE TP SCH ×2 (09:00→21:24)
[2016-07-06] MEDS: ZINC OXIDE 30 GM TUBE TP SCH ×2 (09:00→21:25)
--- NOTE | 2016-07-06 19:15 | NUR ---
Right cheek noted with redness. Asked pt how he got the right cheek redness, if it was scratched. Pt was upset and was yelling, saying that the charge nurse was blaming him for it. Charge nurse explained to him that she just wanted to find out how it happened. Unable to obtain information from pt. Endorsed to night charge nurse.
[2016-07-06 19:41] VITALS: BP 98/65
[2016-07-07] MEDS: SUCRALFATE 1 G/10 ML UDC GT SCH ×6 (00:12→21:29)
[2016-07-07] MEDS: ALBUTEROL FS 2.5 MG/0.5 ML VIAL.NEB NEB SCH ×4 (00:45→20:19)
[2016-07-07] MEDS: IPRATROPIUM NEB FS 0.5 MG/2.5 ML AMPUL.NEB IH SCH ×4 (00:45→20:19)
[2016-07-07] MEDS: POLYVINYL ALCOHOL 15 ML BOTTLE EACHEYE SCH ×3 (05:23→21:29)
[2016-07-07] MEDS: OMEPRAZOLE 20 MG CAPSULE.DR GT SCH (05:23)
[2016-07-07 08:01] VITALS: BP 111/75
[2016-07-07] MEDS: SERTRALINE HCL 25 MG TABLET GT SCH (09:24)
[2016-07-07] MEDS: CHLORHEXIDINE GLUCONATE 15 ML UDC MM SCH ×2 (09:24→17:00)
[2016-07-07] MEDS: MULTIVITAMINS,THERAGRAN 1 UDTAB TABLET GT SCH (09:24)
[2016-07-07] MEDS: PROSOURCE / PROSTAT (PYXIS) 30 ML UDC GT SCH (09:24)
[2016-07-07] MEDS: ASCORBIC ACID 500 MG TABLET GT SCH (09:24)
[2016-07-07] MEDS: ZINC OXIDE 30 GM TUBE TP SCH ×2 (14:00→21:30)
[2016-07-07] MEDS: CLOTRIMAZOLE 1% CREAM 24 GM TUBE TP SCH ×2 (14:00→21:30)
[2016-07-07] MEDS: Z GUARD REMEDY 4 OZ OINT TP SCH ×2 (14:00→21:30)
[2016-07-07] MEDS: HYDROGEN PEROXIDE 480 ML BOTTLE TP SCH ×2 (14:00→21:30)
--- NOTE | 2016-07-07 18:13 | NUR ---
Seen by CUSTODIAL AIDE Isidra Ayala. Showed her pt's right cheek redness and that according to shift production supervisor charge nurse pt said he felt something touch his cheek last night when he was turned to his side which probably caused the redness. No new order.
[2016-07-07] MEDS: FIBERSOURCE HN 1,000 ML BOTTLE GT PRN (18:35)
[2016-07-07 20:03] VITALS: BP 99/71
[2016-07-07] MEDS: NEOMY SULF/BACITRAC ZN/POLY 15 GM TUBE TP SCH (21:29)
[2016-07-08] MEDS: SUCRALFATE 1 G/10 ML UDC GT SCH ×6 (00:35→21:16)
[2016-07-08] MEDS: ALBUTEROL FS 2.5 MG/0.5 ML VIAL.NEB NEB SCH ×4 (01:16→20:01)
[2016-07-08] MEDS: IPRATROPIUM NEB FS 0.5 MG/2.5 ML AMPUL.NEB IH SCH ×4 (01:16→20:01)
[2016-07-08] MEDS: POLYVINYL ALCOHOL 15 ML BOTTLE EACHEYE SCH ×3 (05:15→21:16)
[2016-07-08] MEDS: OMEPRAZOLE 20 MG CAPSULE.DR GT SCH (05:15)
[2016-07-08 07:23] LABS: BASOPHILS % (AUTO) 0.2 % (0.0-2.0); EOSINOPHILS # (AUTO) 0.1 /CMM (0.0-0.7); EOSINOPHILS % (AUTO) 1.5 % (0.0-6.0); HEMATOCRIT 23 % (39-51); HEMOGLOBIN 7.5 g/dL (13.5-17.5); LYMPHOCYTES # (AUTO) 0.8 /CMM (0.8-4.8); LYMPHOCYTES % (AUTO) 19.1 % (20.0-44.0); MEAN CORPUSCULAR HEMOGLOBIN 30 PG (26.0-33.0); MEAN CORPUSCULAR HGB CONC 33 g/dl (31.0-36.0); MEAN CORPUSCULAR VOLUME 92 fL (80-96); MONOCYTES # (AUTO) 0.4 /CMM (0.1-1.30); MONOCYTES % (AUTO) 9.2 % (2.0-12.0); PLATELET COUNT (AUTO) 260 /CMM (150-450); RDW COEFFICIENT OF VARIATION 16.1 (11.5-15.0); RED BLOOD CELL COUNT(AUTO) 2.47 MIL/uL (4.5-6.0); WHITE BLOOD COUNT (AUTO) 4.2 K/uL (4.3-11.0)
[2016-07-08] MEDS: MULTI-DELYN GT SCH (09:30)
[2016-07-08] MEDS: SERTRALINE HCL 25 MG TABLET GT SCH (09:30)
[2016-07-08] MEDS: ASCORBIC ACID 500 MG TABLET GT SCH (09:30)
[2016-07-08] MEDS: CHLORHEXIDINE GLUCONATE 15 ML UDC MM SCH ×2 (09:30→17:00)
[2016-07-08] MEDS: PROSOURCE / PROSTAT (PYXIS) 30 ML UDC GT SCH (09:30)
[2016-07-08] MEDS: FIBERSOURCE HN 1,000 ML BOTTLE GT PRN (09:53)
[2016-07-08] MEDS: CLOTRIMAZOLE 1% CREAM 24 GM TUBE TP SCH ×2 (11:00→21:16)
[2016-07-08] MEDS: Z GUARD REMEDY 4 OZ OINT TP SCH ×2 (11:00→21:16)
[2016-07-08] MEDS: ZINC OXIDE 30 GM TUBE TP SCH ×2 (11:00→21:16)
[2016-07-08] MEDS: HYDROGEN PEROXIDE 480 ML BOTTLE TP SCH ×2 (11:00→21:16)
--- NOTE | 2016-07-08 12:05 | NUR ---
Seen and examined Dr. Reese and showed to him CBC result with no new order given.
[2016-07-08 12:20] VITALS: BP 118/67
[2016-07-08 20:00] VITALS: BP 100/63
[2016-07-09] MEDS: SUCRALFATE 1 G/10 ML UDC GT SCH ×6 (01:00→21:02)
[2016-07-09] MEDS: ALBUTEROL FS 2.5 MG/0.5 ML VIAL.NEB NEB SCH ×4 (01:47→20:05)
[2016-07-09] MEDS: IPRATROPIUM NEB FS 0.5 MG/2.5 ML AMPUL.NEB IH SCH ×4 (01:47→20:05)
[2016-07-09] MEDS: OMEPRAZOLE 20 MG CAPSULE.DR GT SCH (05:35)
[2016-07-09] MEDS: POLYVINYL ALCOHOL 15 ML BOTTLE EACHEYE SCH ×3 (05:35→21:02)
[2016-07-09 07:56] VITALS: BP 120/74
[2016-07-09] MEDS: ZINC OXIDE 30 GM TUBE TP SCH ×2 (09:00→21:02)
[2016-07-09] MEDS: CHLORHEXIDINE GLUCONATE 15 ML UDC MM SCH ×2 (09:00→17:00)
[2016-07-09] MEDS: MULTI-DELYN GT SCH (09:00)
[2016-07-09] MEDS: CLOTRIMAZOLE 1% CREAM 24 GM TUBE TP SCH ×2 (09:00→21:02)
[2016-07-09] MEDS: SERTRALINE HCL 25 MG TABLET GT SCH (09:00)
[2016-07-09] MEDS: Z GUARD REMEDY 4 OZ OINT TP SCH ×2 (09:00→21:02)
[2016-07-09] MEDS: ASCORBIC ACID 500 MG TABLET GT SCH (09:00)
[2016-07-09] MEDS: HYDROGEN PEROXIDE 480 ML BOTTLE TP SCH ×2 (09:00→21:02)
[2016-07-09] MEDS: PROSOURCE / PROSTAT (PYXIS) 30 ML UDC GT SCH (09:00)
--- NOTE | 2016-07-09 09:38 | NUR ---
Called office of the ombudsman to follow up, as worker never came to fill out advanced directive. Spoke to Rahel stated that she will remind her supervisor color making. Informed her that paperwork will remain with the charge nurse in the endorsement folder.
[2016-07-09] MEDS: FIBERSOURCE HN 1,000 ML BOTTLE GT PRN (14:00)
[2016-07-09 19:51] VITALS: BP 116/70
[2016-07-10] MEDS: ALBUTEROL FS 2.5 MG/0.5 ML VIAL.NEB NEB SCH ×4 (01:18→20:15)
[2016-07-10] MEDS: IPRATROPIUM NEB FS 0.5 MG/2.5 ML AMPUL.NEB IH SCH ×4 (01:18→20:15)
[2016-07-10] MEDS: SUCRALFATE 1 G/10 ML UDC GT SCH ×6 (01:21→21:45)
[2016-07-10] MEDS: FIBERSOURCE HN 1,000 ML BOTTLE GT PRN ×2 (01:21→17:21)
[2016-07-10] MEDS: MORPHINE SULFATE SOLN CONCENTRATED 20 MG/ML GT PRN (01:36)
[2016-07-10] MEDS: OMEPRAZOLE 20 MG CAPSULE.DR GT SCH (05:11)
[2016-07-10] MEDS: POLYVINYL ALCOHOL 15 ML BOTTLE EACHEYE SCH ×3 (05:11→21:45)
[2016-07-10 07:41] VITALS: BP 108/69
[2016-07-10] MEDS: ASCORBIC ACID 500 MG TABLET GT SCH (09:09)
[2016-07-10] MEDS: SERTRALINE HCL 25 MG TABLET GT SCH (09:09)
[2016-07-10] MEDS: MULTI-DELYN GT SCH (09:09)
[2016-07-10] MEDS: PROSOURCE / PROSTAT (PYXIS) 30 ML UDC GT SCH (09:09)
[2016-07-10] MEDS: CHLORHEXIDINE GLUCONATE 15 ML UDC MM SCH ×2 (09:09→17:00)
[2016-07-10] MEDS: Z GUARD REMEDY 4 OZ OINT TP SCH ×2 (09:10→21:45)
[2016-07-10] MEDS: ZINC OXIDE 30 GM TUBE TP SCH ×2 (09:10→21:45)
[2016-07-10] MEDS: HYDROGEN PEROXIDE 480 ML BOTTLE TP SCH ×2 (09:10→21:45)
[2016-07-10] MEDS: CLOTRIMAZOLE 1% CREAM 24 GM TUBE TP SCH ×2 (09:10→21:45)
[2016-07-10] MEDS: NEOMY SULF/BACITRAC ZN/POLY 15 GM TUBE TP SCH ×2 (09:14→21:45)
--- NOTE | 2016-07-10 17:47 | NUR ---
RT END OF THE SHIFT REPORT: PT. 76 Y OLD MALE REMAIN TRACHED SHILEY # 6 ON VENT WITH NOTED AC SETTING, ALARMS ARE SET AND FUNCTIONAL, NO DISTRESS NOTED T/O SHIFT, CUFF PRESSURE CHECKED THX,S GIVEN INLINE AND RACHEAL. WELL NO A/R NOTED. EQUAL CHEST RISE NOTED CACERES'X FOR MINIMAL YELLOW SECRETIONS, B/S BILATERALLY RALES. NO CHANGES HME CHANGED AMBU BAG REMAIN AT THE BEDSIDE. REPORT WILL BE GIVEN TO PM SHIFT. Addendum: 07/10/16 at 1748 by MISSY HEATH RT Amended: Links added.
[2016-07-10 20:09] VITALS: BP 108/75
[2016-07-11] MEDS: SUCRALFATE 1 G/10 ML UDC GT SCH ×6 (00:04→20:03)
[2016-07-11] MEDS: ALBUTEROL FS 2.5 MG/0.5 ML VIAL.NEB NEB SCH ×4 (00:57→19:34)
[2016-07-11] MEDS: IPRATROPIUM NEB FS 0.5 MG/2.5 ML AMPUL.NEB IH SCH ×4 (00:57→19:34)
[2016-07-11] MEDS: FIBERSOURCE HN 1,000 ML BOTTLE GT PRN ×2 (04:31→20:02)
[2016-07-11] MEDS: POLYVINYL ALCOHOL 15 ML BOTTLE EACHEYE SCH ×3 (05:00→20:03)
[2016-07-11] MEDS: OMEPRAZOLE 20 MG CAPSULE.DR GT SCH (06:15)
[2016-07-11 07:37] VITALS: BP 124/72
[2016-07-11] MEDS: CHLORHEXIDINE GLUCONATE 15 ML UDC MM SCH ×2 (09:00→17:00)
[2016-07-11] MEDS: SERTRALINE HCL 25 MG TABLET GT SCH (09:55)
[2016-07-11] MEDS: PROSOURCE / PROSTAT (PYXIS) 30 ML UDC GT SCH (09:55)
[2016-07-11] MEDS: NEOMY SULF/BACITRAC ZN/POLY 15 GM TUBE TP SCH ×2 (09:55→20:03)
[2016-07-11] MEDS: Z GUARD REMEDY 4 OZ OINT TP SCH ×2 (09:55→20:03)
[2016-07-11] MEDS: HYDROGEN PEROXIDE 480 ML BOTTLE TP SCH ×2 (09:55→20:03)
[2016-07-11] MEDS: ASCORBIC ACID 500 MG TABLET GT SCH (09:55)
[2016-07-11] MEDS: CLOTRIMAZOLE 1% CREAM 24 GM TUBE TP SCH ×2 (09:55→20:03)
[2016-07-11] MEDS: MULTI-DELYN GT SCH (09:55)
[2016-07-11] MEDS: ZINC OXIDE 30 GM TUBE TP SCH ×2 (09:56→20:03)
--- NOTE | 2016-07-11 17:00 | NUR ---
Seen and examined by Dr. Del Toro reviewed medications and reported patient's behavior such as refusing to be suctioned, daily care,bathing, diaper change , oral care. No new order given at this time.
--- NOTE | 2016-07-11 17:27 | NUR ---
Episodes of refusing oral care and skin care, explained risks and benefits x3 but still refused and being combative and angry while explaining the risks and benefits.
--- NOTE | 2016-07-11 17:58 | NUR ---
RT Notes: Patient on vent and the vent alarms set and audible. Vent plugged into red outlet. Ambu bag and spare trach at the bed side. Trach midline and breath sounds equal. Patient received breathing Tx as ordered and tolerated very well. No adverse reactions noticed.
[2016-07-11 20:18] VITALS: BP 110/63
--- NOTE | 2016-07-11 20:20 | NUR ---
Seen and examined by Dr. Vance no new order given.
[2016-07-12] MEDS: SUCRALFATE 1 G/10 ML UDC GT SCH ×6 (01:12→21:29)
[2016-07-12] MEDS: ALBUTEROL FS 2.5 MG/0.5 ML VIAL.NEB NEB SCH ×4 (01:17→19:23)
[2016-07-12] MEDS: IPRATROPIUM NEB FS 0.5 MG/2.5 ML AMPUL.NEB IH SCH ×4 (01:17→19:23)
[2016-07-12] MEDS: OMEPRAZOLE 20 MG CAPSULE.DR GT SCH (05:06)
[2016-07-12] MEDS: POLYVINYL ALCOHOL 15 ML BOTTLE EACHEYE SCH ×3 (05:06→21:29)
[2016-07-12 07:58] VITALS: BP 134/86
[2016-07-12] MEDS: MULTI-DELYN GT SCH (09:46)
[2016-07-12] MEDS: PROSOURCE / PROSTAT (PYXIS) 30 ML UDC GT SCH (09:46)
[2016-07-12] MEDS: ASCORBIC ACID 500 MG TABLET GT SCH (09:46)
[2016-07-12] MEDS: CLOTRIMAZOLE 1% CREAM 24 GM TUBE TP SCH ×2 (09:47→21:29)
[2016-07-12] MEDS: CHLORHEXIDINE GLUCONATE 15 ML UDC MM SCH ×2 (09:47→17:00)
[2016-07-12] MEDS: NEOMY SULF/BACITRAC ZN/POLY 15 GM TUBE TP SCH ×2 (09:47→21:30)
[2016-07-12] MEDS: HYDROGEN PEROXIDE 480 ML BOTTLE TP SCH ×2 (09:47→21:29)
[2016-07-12] MEDS: Z GUARD REMEDY 4 OZ OINT TP SCH ×2 (09:47→21:30)
[2016-07-12] MEDS: SERTRALINE HCL 25 MG TABLET GT SCH (09:47)
[2016-07-12] MEDS: ZINC OXIDE 30 GM TUBE TP SCH ×2 (09:47→21:30)
[2016-07-12] MEDS ORDERED: TEMAZEPAM 7.5 MG CAPSULE PO PRN (10:30)
--- NOTE | 2016-07-12 13:06 | NUR ---
RT. Patient received trached mechanical vent. Trach midline and breath sounds equal. Tx given as ordered. No adverse reactions. Vent plugged into red outlet and alarms set and audible. Ambu bag and spare trach at the bed side.
--- NOTE | 2016-07-12 14:05 | NUR ---
Reported to Dr. Vance that resident is not sleeping well at night as endorsed by scene shifter. Order obtained from Dr. Vance for PRN sleeping medication. Spoke with Elizabeth (sister) and notified her of new order.
[2016-07-12 20:09] VITALS: BP 119/77
[2016-07-13] MEDS: SUCRALFATE 1 G/10 ML UDC GT SCH ×6 (01:00→21:16)
[2016-07-13] MEDS: IPRATROPIUM NEB FS 0.5 MG/2.5 ML AMPUL.NEB IH SCH ×4 (01:29→19:08)
[2016-07-13] MEDS: ALBUTEROL FS 2.5 MG/0.5 ML VIAL.NEB NEB SCH ×4 (01:29→19:08)
[2016-07-13] MEDS: POLYVINYL ALCOHOL 15 ML BOTTLE EACHEYE SCH ×3 (05:00→21:16)
[2016-07-13] MEDS: OMEPRAZOLE 20 MG CAPSULE.DR GT SCH (06:18)
[2016-07-13 08:01] VITALS: BP 106/76
[2016-07-13] MEDS: CHLORHEXIDINE GLUCONATE 15 ML UDC MM SCH ×2 (08:59→16:19)
[2016-07-13] MEDS: MULTI-DELYN GT SCH (08:59)
[2016-07-13] MEDS: PROSOURCE / PROSTAT (PYXIS) 30 ML UDC GT SCH (08:59)
[2016-07-13] MEDS: ASCORBIC ACID 500 MG TABLET GT SCH (08:59)
[2016-07-13] MEDS: SERTRALINE HCL 25 MG TABLET GT SCH (08:59)
[2016-07-13] MEDS: HYDROGEN PEROXIDE 480 ML BOTTLE TP SCH ×2 (09:45→21:16)
[2016-07-13] MEDS: Z GUARD REMEDY 4 OZ OINT TP SCH ×2 (09:45→21:16)
[2016-07-13] MEDS: NEOMY SULF/BACITRAC ZN/POLY 15 GM TUBE TP SCH ×2 (09:45→21:16)
[2016-07-13] MEDS: CLOTRIMAZOLE 1% CREAM 24 GM TUBE TP SCH ×2 (09:45→21:16)
[2016-07-13] MEDS: ZINC OXIDE 30 GM TUBE TP SCH ×2 (09:45→21:16)
--- NOTE | 2016-07-13 13:23 | NUR ---
RT RECEIVED PT TRACHED ON [facility] VENT WITH SETTINGS PER MD ORDER. [employer] LIAISON OFFICER DONE. BILAT RHONCHI BREATH SOUNDS ON AUSCULTATION. VENT PLUGGED INTO RED OUTLET. TRACH SECURED AND AIRWAY PATENT. SUCTIONED MODERATE AMOUNTS OF THICK, PINK-TINGED SECRETIONS. RN AWARE. ALARMS ON AND SET PROPERLY. BREATHING TX'S GIVEN ORDERED. NO ADVERSE REACTIONS OBSERVED. SPARE TRACH AND AMBU BAG AT BEDSIDE. NO SOB NOTED AT THIS TIME. WILL CONTINUE TO MONITOR THE PATIENT FOR ANY CHANGES. Addendum: 07/13/16 at 1740 by IVAN HALL RT Amended: Links added.
[2016-07-13 19:44] VITALS: BP 113/57
[2016-07-14] MEDS: IPRATROPIUM NEB FS 0.5 MG/2.5 ML AMPUL.NEB IH SCH ×4 (00:56→19:35)
[2016-07-14] MEDS: ALBUTEROL FS 2.5 MG/0.5 ML VIAL.NEB NEB SCH ×4 (00:56→19:35)
[2016-07-14] MEDS: SUCRALFATE 1 G/10 ML UDC GT SCH ×6 (01:00→21:18)
[2016-07-14] MEDS: POLYVINYL ALCOHOL 15 ML BOTTLE EACHEYE SCH ×3 (05:00→21:18)
[2016-07-14] MEDS: OMEPRAZOLE 20 MG CAPSULE.DR GT SCH (06:15)
[2016-07-14 08:11] VITALS: BP 105/67
[2016-07-14] MEDS: PROSOURCE / PROSTAT (PYXIS) 30 ML UDC GT SCH (09:32)
[2016-07-14] MEDS: MULTI-DELYN GT SCH (09:32)
[2016-07-14] MEDS: CHLORHEXIDINE GLUCONATE 15 ML UDC MM SCH ×2 (09:32→17:07)
[2016-07-14] MEDS: SERTRALINE HCL 25 MG TABLET GT SCH (09:32)
[2016-07-14] MEDS: ASCORBIC ACID 500 MG TABLET GT SCH (09:32)
[2016-07-14] MEDS: HYDROGEN PEROXIDE 480 ML BOTTLE TP SCH ×2 (10:30→21:18)
[2016-07-14] MEDS: NEOMY SULF/BACITRAC ZN/POLY 15 GM TUBE TP SCH ×3 (10:30→21:18)
[2016-07-14] MEDS: CLOTRIMAZOLE 1% CREAM 24 GM TUBE TP SCH (10:30)
[2016-07-14] MEDS: ZINC OXIDE 30 GM TUBE TP SCH ×2 (10:30→21:18)
[2016-07-14] MEDS: Z GUARD REMEDY 4 OZ OINT TP SCH ×2 (10:30→21:18)
[2016-07-14] MEDS: FIBERSOURCE HN 1,000 ML BOTTLE GT PRN (15:03)
[2016-07-14 19:42] VITALS: BP 106/64
[2016-07-15] MEDS: SUCRALFATE 1 G/10 ML UDC GT SCH ×6 (00:05→21:29)
[2016-07-15] MEDS: ALBUTEROL FS 2.5 MG/0.5 ML VIAL.NEB NEB SCH ×4 (02:29→19:30)
[2016-07-15] MEDS: IPRATROPIUM NEB FS 0.5 MG/2.5 ML AMPUL.NEB IH SCH ×4 (02:29→19:30)
[2016-07-15] MEDS: POLYVINYL ALCOHOL 15 ML BOTTLE EACHEYE SCH ×3 (05:31→21:29)
[2016-07-15] MEDS: OMEPRAZOLE 20 MG CAPSULE.DR GT SCH (05:31)
[2016-07-15 07:54] LABS: BASOPHILS % (AUTO) 0.2 % (0.0-2.0); EOSINOPHILS % (AUTO) 0.7 % (0.0-6.0); HEMATOCRIT 25 % (39-51); HEMOGLOBIN 8.3 g/dL (13.5-17.5); LYMPHOCYTES # (AUTO) 0.8 /CMM (0.8-4.8); LYMPHOCYTES % (AUTO) 13.6 % (20.0-44.0); MEAN CORPUSCULAR HEMOGLOBIN 30 PG (26.0-33.0); MEAN CORPUSCULAR HGB CONC 33 g/dl (31.0-36.0); MEAN CORPUSCULAR VOLUME 91 fL (80-96); MONOCYTES # (AUTO) 0.5 /CMM (0.1-1.30); MONOCYTES % (AUTO) 8.2 % (2.0-12.0); NEUTROPHILS # (AUTO) 4.8 /CMM (1.8-8.9); NEUTROPHILS % (AUTO) 77.3 % (43.0-81.0); PLATELET COUNT (AUTO) 218 /CMM (150-450); RDW COEFFICIENT OF VARIATION 16.3 (11.5-15.0); RED BLOOD CELL COUNT(AUTO) 2.78 MIL/uL (4.5-6.0); WHITE BLOOD COUNT (AUTO) 6.2 K/uL (4.3-11.0)
[2016-07-15 08:01] VITALS: BP 105/64
[2016-07-15] MEDS: SERTRALINE HCL 25 MG TABLET GT SCH (09:31)
[2016-07-15] MEDS: MULTI-DELYN GT SCH (09:31)
[2016-07-15] MEDS: PROSOURCE / PROSTAT (PYXIS) 30 ML UDC GT SCH (09:31)
[2016-07-15] MEDS: ASCORBIC ACID 500 MG TABLET GT SCH (09:31)
[2016-07-15] MEDS: CHLORHEXIDINE GLUCONATE 15 ML UDC MM SCH ×2 (09:31→17:00)
[2016-07-15] MEDS: Z GUARD REMEDY 4 OZ OINT TP SCH ×2 (11:00→21:29)
[2016-07-15] MEDS: ZINC OXIDE 30 GM TUBE TP SCH ×2 (11:00→21:29)
[2016-07-15] MEDS: NEOMY SULF/BACITRAC ZN/POLY 15 GM TUBE TP SCH ×2 (11:00→21:29)
[2016-07-15] MEDS: HYDROGEN PEROXIDE 480 ML BOTTLE TP SCH ×2 (11:00→21:29)
--- NOTE | 2016-07-15 18:33 | NUR ---
RT END OF THE SHIFT REPORT: PT. 76 Y OLD MALE REMAIN TRACHED ON VENT WITH NOTED SETTING, ALARMS ARE SET AND FUNCTIONAL, NO DISTRESS NOTED T/O SHIFT, VENT PLUGGED INTO RED OUTLET THX,S GIVEN INLINE AND RACHEAL. WELL NO A/R NOTED. EQUAL CHEST RISE NOTED CACERES'X FOR MINIMAL YELLOW SECRETIONS, B/S BILATERALLY RALES. NO CHANGES HME CHANGED AMBU BAG REMAIN AT THE BEDSIDE. Addendum: 07/15/16 at 1834 by MISSY HEATH RT Amended: Links added.
[2016-07-15 19:35] VITALS: BP 98/67
[2016-07-16] MEDS: SUCRALFATE 1 G/10 ML UDC GT SCH ×6 (00:02→21:32)
[2016-07-16] MEDS: ALBUTEROL FS 2.5 MG/0.5 ML VIAL.NEB NEB SCH ×4 (01:30→20:06)
[2016-07-16] MEDS: IPRATROPIUM NEB FS 0.5 MG/2.5 ML AMPUL.NEB IH SCH ×4 (01:30→20:06)
[2016-07-16] MEDS: OMEPRAZOLE 20 MG CAPSULE.DR GT SCH (05:36)
[2016-07-16] MEDS: POLYVINYL ALCOHOL 15 ML BOTTLE EACHEYE SCH ×3 (05:36→21:32)
[2016-07-16 08:20] VITALS: BP 98/62
[2016-07-16] MEDS: PROSOURCE / PROSTAT (PYXIS) 30 ML UDC GT SCH (09:12)
[2016-07-16] MEDS: Z GUARD REMEDY 4 OZ OINT TP SCH ×2 (09:12→21:33)
[2016-07-16] MEDS: MULTI-DELYN GT SCH (09:12)
[2016-07-16] MEDS: CHLORHEXIDINE GLUCONATE 15 ML UDC MM SCH ×2 (09:12→17:20)
[2016-07-16] MEDS: NEOMY SULF/BACITRAC ZN/POLY 15 GM TUBE TP SCH ×2 (09:12→21:32)
[2016-07-16] MEDS: SERTRALINE HCL 25 MG TABLET GT SCH (09:12)
[2016-07-16] MEDS: ASCORBIC ACID 500 MG TABLET GT SCH (09:12)
[2016-07-16] MEDS: HYDROGEN PEROXIDE 480 ML BOTTLE TP SCH ×2 (09:12→21:32)
[2016-07-16] MEDS: ZINC OXIDE 30 GM TUBE TP SCH ×2 (09:13→21:33)
[2016-07-16] MEDS: OCUSOFT LID SCRUB TP SCH (17:25)
[2016-07-16 20:10] VITALS: BP 106/60
[2016-07-17] MEDS: SUCRALFATE 1 G/10 ML UDC GT SCH ×6 (00:57→20:28)
[2016-07-17] MEDS: TEMAZEPAM 7.5 MG CAPSULE GT PRN (01:51)
[2016-07-17] MEDS: FIBERSOURCE HN 1,000 ML BOTTLE GT PRN (01:51)
[2016-07-17] MEDS: IPRATROPIUM NEB FS 0.5 MG/2.5 ML AMPUL.NEB IH SCH ×4 (02:11→20:12)
[2016-07-17] MEDS: ALBUTEROL FS 2.5 MG/0.5 ML VIAL.NEB NEB SCH ×4 (02:11→20:12)
[2016-07-17] MEDS: POLYVINYL ALCOHOL 15 ML BOTTLE EACHEYE SCH ×3 (05:00→20:28)
[2016-07-17] MEDS: OMEPRAZOLE 20 MG CAPSULE.DR GT SCH (06:01)
[2016-07-17 07:52] VITALS: BP 108/62
[2016-07-17] MEDS: SERTRALINE HCL 25 MG TABLET GT SCH (09:37)
[2016-07-17] MEDS: ASCORBIC ACID 500 MG TABLET GT SCH (09:37)
[2016-07-17] MEDS: MULTI-DELYN GT SCH (09:37)
[2016-07-17] MEDS: PROSOURCE / PROSTAT (PYXIS) 30 ML UDC GT SCH (09:37)
[2016-07-17] MEDS: CHLORHEXIDINE GLUCONATE 15 ML UDC MM SCH ×2 (09:43→17:11)
[2016-07-17] MEDS: Z GUARD REMEDY 4 OZ OINT TP SCH ×2 (09:43→20:28)
[2016-07-17] MEDS: ZINC OXIDE 30 GM TUBE TP SCH ×2 (09:43→20:28)
[2016-07-17] MEDS: HYDROGEN PEROXIDE 480 ML BOTTLE TP SCH ×2 (09:43→20:28)
[2016-07-17] MEDS: OCUSOFT LID SCRUB TP SCH ×2 (09:43→17:12)
[2016-07-17 20:00] VITALS: BP 118/69
[2016-07-17] MEDS: NEOMY SULF/BACITRAC ZN/POLY 15 GM TUBE TP SCH (20:28)
[2016-07-18] MEDS: SUCRALFATE 1 G/10 ML UDC GT SCH ×6 (00:47→21:26)
[2016-07-18] MEDS: IPRATROPIUM NEB FS 0.5 MG/2.5 ML AMPUL.NEB IH SCH ×4 (02:06→19:45)
[2016-07-18] MEDS: ALBUTEROL FS 2.5 MG/0.5 ML VIAL.NEB NEB SCH ×4 (02:06→19:45)
[2016-07-18] MEDS: POLYVINYL ALCOHOL 15 ML BOTTLE EACHEYE SCH ×3 (05:10→21:26)
[2016-07-18] MEDS: OMEPRAZOLE 20 MG CAPSULE.DR GT SCH (05:10)
[2016-07-18 07:36] VITALS: BP 107/66
[2016-07-18] MEDS: Z GUARD REMEDY 4 OZ OINT TP SCH ×2 (09:23→21:26)
[2016-07-18] MEDS: OCUSOFT LID SCRUB TP SCH ×2 (09:23→17:19)
[2016-07-18] MEDS: SERTRALINE HCL 25 MG TABLET GT SCH (09:23)
[2016-07-18] MEDS: MULTI-DELYN GT SCH (09:23)
[2016-07-18] MEDS: ASCORBIC ACID 500 MG TABLET GT SCH (09:23)
[2016-07-18] MEDS: CHLORHEXIDINE GLUCONATE 15 ML UDC MM SCH ×2 (09:23→17:18)
[2016-07-18] MEDS: HYDROGEN PEROXIDE 480 ML BOTTLE TP SCH ×2 (09:23→21:26)
[2016-07-18] MEDS: PROSOURCE / PROSTAT (PYXIS) 30 ML UDC GT SCH (09:23)
[2016-07-18] MEDS: ZINC OXIDE 30 GM TUBE TP SCH (09:24)
[2016-07-18] MEDS: FIBERSOURCE HN 1,000 ML BOTTLE GT PRN (12:42)
[2016-07-18 20:04] VITALS: BP 123/70
[2016-07-19] MEDS: IPRATROPIUM NEB FS 0.5 MG/2.5 ML AMPUL.NEB IH SCH ×4 (00:31→19:50)
[2016-07-19] MEDS: ALBUTEROL FS 2.5 MG/0.5 ML VIAL.NEB NEB SCH ×4 (00:31→19:50)
[2016-07-19] MEDS: FIBERSOURCE HN 1,000 ML BOTTLE GT PRN (01:55)
[2016-07-19] MEDS: SUCRALFATE 1 G/10 ML UDC GT SCH ×6 (01:55→20:45)
[2016-07-19] MEDS: POLYVINYL ALCOHOL 15 ML BOTTLE EACHEYE SCH ×3 (05:00→20:45)
[2016-07-19] MEDS: OMEPRAZOLE 20 MG CAPSULE.DR GT SCH (06:30)
[2016-07-19 07:45] VITALS: BP 102/70
[2016-07-19] MEDS: OCUSOFT LID SCRUB TP SCH ×2 (09:15→16:17)
[2016-07-19] MEDS: MULTI-DELYN GT SCH (09:15)
[2016-07-19] MEDS: SERTRALINE HCL 25 MG TABLET GT SCH (09:15)
[2016-07-19] MEDS: ASCORBIC ACID 500 MG TABLET GT SCH (09:15)
[2016-07-19] MEDS: CHLORHEXIDINE GLUCONATE 15 ML UDC MM SCH ×2 (09:15→16:17)
[2016-07-19] MEDS: PROSOURCE / PROSTAT (PYXIS) 30 ML UDC GT SCH (09:15)
[2016-07-19] MEDS: HYDROGEN PEROXIDE 480 ML BOTTLE TP SCH ×2 (09:16→21:35)
[2016-07-19] MEDS: Z GUARD REMEDY 4 OZ OINT TP SCH ×2 (09:16→21:35)
[2016-07-19 19:31] VITALS: BP 119/64
--- NOTE | 2016-07-19 19:50 | NUR ---
PT REC'D ON TRACH ROBERT 6 ON VENT SETTINGS CHARTED. TRACH IS SECURE AND IS IN PROPER POSITION. NO RESP DISTRESS NOTED. VENT ALARMS ARE SET AND AUDIBLE. VENT IS PLUGGED IN RED OUTLET AMBU BAG IS BEDSIDE. SX SMALL THICK YELLOW SECRETIONS. WILL CONTINUE TO MONITOR. Addendum: 07/20/16 at 0434 by RADHA SQUIRES RT Amended: Links added.
[2016-07-20] MEDS: SUCRALFATE 1 G/10 ML UDC GT SCH ×6 (00:31→20:55)
[2016-07-20] MEDS: IPRATROPIUM NEB FS 0.5 MG/2.5 ML AMPUL.NEB IH SCH ×4 (01:44→20:15)
[2016-07-20] MEDS: ALBUTEROL FS 2.5 MG/0.5 ML VIAL.NEB NEB SCH ×4 (01:44→20:15)
[2016-07-20] MEDS: POLYVINYL ALCOHOL 15 ML BOTTLE EACHEYE SCH ×3 (05:00→20:55)
[2016-07-20] MEDS: OMEPRAZOLE 20 MG CAPSULE.DR GT SCH (06:03)
[2016-07-20 07:40] VITALS: BP 112/72
[2016-07-20] MEDS: FIBERSOURCE HN 1,000 ML BOTTLE GT PRN (09:30)
[2016-07-20] MEDS: CHLORHEXIDINE GLUCONATE 15 ML UDC MM SCH ×2 (09:49→16:41)
[2016-07-20] MEDS: ASCORBIC ACID 500 MG TABLET GT SCH (09:49)
[2016-07-20] MEDS: MULTI-DELYN GT SCH (09:49)
[2016-07-20] MEDS: SERTRALINE HCL 25 MG TABLET GT SCH (09:49)
[2016-07-20] MEDS: PROSOURCE / PROSTAT (PYXIS) 30 ML UDC GT SCH (09:49)
[2016-07-20] MEDS: HYDROGEN PEROXIDE 480 ML BOTTLE TP SCH ×2 (09:50→20:55)
[2016-07-20] MEDS: OCUSOFT LID SCRUB TP SCH ×2 (09:50→16:41)
[2016-07-20] MEDS: Z GUARD REMEDY 4 OZ OINT TP SCH ×2 (09:50→20:56)
[2016-07-20] MEDS: NEOMY SULF/BACITRAC ZN/POLY 15 GM TUBE TP SCH (20:55)
[2016-07-20 21:32] VITALS: BP 100/62
[2016-07-21] MEDS: IPRATROPIUM NEB FS 0.5 MG/2.5 ML AMPUL.NEB IH SCH ×4 (00:39→19:31)
[2016-07-21] MEDS: ALBUTEROL FS 2.5 MG/0.5 ML VIAL.NEB NEB SCH ×4 (00:39→19:31)
[2016-07-21] MEDS: SUCRALFATE 1 G/10 ML UDC GT SCH ×6 (01:20→20:35)
[2016-07-21] MEDS: POLYVINYL ALCOHOL 15 ML BOTTLE EACHEYE SCH ×3 (05:30→20:35)
[2016-07-21] MEDS: OMEPRAZOLE 20 MG CAPSULE.DR GT SCH (05:30)
[2016-07-21 07:35] VITALS: BP 108/54
[2016-07-21] MEDS: CHLORHEXIDINE GLUCONATE 15 ML UDC MM SCH ×2 (09:09→16:24)
[2016-07-21] MEDS: MULTI-DELYN GT SCH (09:09)
[2016-07-21] MEDS: HYDROGEN PEROXIDE 480 ML BOTTLE TP SCH ×2 (09:09→20:35)
[2016-07-21] MEDS: Z GUARD REMEDY 4 OZ OINT TP SCH ×2 (09:09→20:35)
[2016-07-21] MEDS: SERTRALINE HCL 25 MG TABLET GT SCH (09:09)
[2016-07-21] MEDS: PROSOURCE / PROSTAT (PYXIS) 30 ML UDC GT SCH (09:09)
[2016-07-21] MEDS: ASCORBIC ACID 500 MG TABLET GT SCH (09:09)
[2016-07-21] MEDS: OCUSOFT LID SCRUB TP SCH ×2 (09:09→16:25)
--- NOTE | 2016-07-21 18:14 | NUR ---
RT END OF THE SHIFT REPORT: PT. 76 Y OLD MALE REMAIN TRACHED ON VENT WITH NOTED SETTING, ALARMS ARE SET AND FUNCTIONAL, NO DISTRESS NOTED T/O SHIFT, VENT PLUGGED INTO RED OUTLET THX,S GIVEN INLINE AND RACHEAL. WELL NO A/R NOTED. EQUAL CHEST RISE NOTED CACERES'X FOR MINIMAL WHITE SECRETIONS, B/S BILATERALLY CLEAR/RALES ON BASES. NO CHANGES HME CHANGED AMBU BAG REMAIN AT THE BEDSIDE. REPORT WILL BE PASS TO PM SHIFT Addendum: 07/21/16 at 1816 by MISSY HEATH RT Amended: Links added.
[2016-07-21 20:04] VITALS: BP 104/61
[2016-07-21] MEDS: TEMAZEPAM 7.5 MG CAPSULE GT PRN (23:02)
[2016-07-22] MEDS: SUCRALFATE 1 G/10 ML UDC GT SCH ×6 (00:17→20:41)
[2016-07-22] MEDS: IPRATROPIUM NEB FS 0.5 MG/2.5 ML AMPUL.NEB IH SCH ×4 (00:36→20:11)
[2016-07-22] MEDS: ALBUTEROL FS 2.5 MG/0.5 ML VIAL.NEB NEB SCH ×4 (00:36→20:11)
[2016-07-22] MEDS: POLYVINYL ALCOHOL 15 ML BOTTLE EACHEYE SCH ×3 (05:41→20:40)
[2016-07-22] MEDS: OMEPRAZOLE 20 MG CAPSULE.DR GT SCH (05:42)
[2016-07-22 07:45] VITALS: BP 122/65
[2016-07-22] MEDS: SERTRALINE HCL 25 MG TABLET GT SCH (09:20)
[2016-07-22] MEDS: MULTI-DELYN GT SCH (09:20)
[2016-07-22] MEDS: ASCORBIC ACID 500 MG TABLET GT SCH (09:20)
[2016-07-22] MEDS: CHLORHEXIDINE GLUCONATE 15 ML UDC MM SCH ×2 (09:20→16:32)
[2016-07-22] MEDS: PROSOURCE / PROSTAT (PYXIS) 30 ML UDC GT SCH (09:20)
[2016-07-22] MEDS: Z GUARD REMEDY 4 OZ OINT TP SCH ×2 (09:21→20:41)
[2016-07-22] MEDS: OCUSOFT LID SCRUB TP SCH ×2 (09:21→16:32)
[2016-07-22] MEDS: HYDROGEN PEROXIDE 480 ML BOTTLE TP SCH ×2 (09:21→20:41)
[2016-07-22 19:49] VITALS: BP 109/66
[2016-07-23] MEDS: SUCRALFATE 1 G/10 ML UDC GT SCH ×6 (00:28→20:47)
[2016-07-23] MEDS: ALBUTEROL FS 2.5 MG/0.5 ML VIAL.NEB NEB SCH ×5 (01:26→19:41)
[2016-07-23] MEDS: IPRATROPIUM NEB FS 0.5 MG/2.5 ML AMPUL.NEB IH SCH ×5 (01:26→19:41)
[2016-07-23] MEDS: OMEPRAZOLE 20 MG CAPSULE.DR GT SCH (05:31)
[2016-07-23] MEDS: POLYVINYL ALCOHOL 15 ML BOTTLE EACHEYE SCH ×3 (05:31→20:47)
[2016-07-23 07:45] VITALS: BP 104/58
[2016-07-23] MEDS: CHLORHEXIDINE GLUCONATE 15 ML UDC MM SCH ×2 (09:11→17:15)
[2016-07-23] MEDS: Z GUARD REMEDY 4 OZ OINT TP SCH ×2 (09:11→20:49)
[2016-07-23] MEDS: SERTRALINE HCL 25 MG TABLET GT SCH (09:11)
[2016-07-23] MEDS: MULTI-DELYN GT SCH (09:11)
[2016-07-23] MEDS: OCUSOFT LID SCRUB TP SCH ×2 (09:11→17:15)
[2016-07-23] MEDS: PROSOURCE / PROSTAT (PYXIS) 30 ML UDC GT SCH (09:11)
[2016-07-23] MEDS: ASCORBIC ACID 500 MG TABLET GT SCH (09:11)
[2016-07-23] MEDS: HYDROGEN PEROXIDE 480 ML BOTTLE TP SCH ×2 (09:11→20:49)
--- NOTE | 2016-07-23 12:20 | NUR ---
PATIENT RECEIVED TRACHED ON HT70 VENT. VENT SETTING PER MD ORDER. ALARMS VERIFIED AND AUDIBLE. VENT PLUGGED INTO RED OUTLET. SUCTIONED AND LAVAGED MODERATE-LARGE AMOUNT OF THICK NARAYAN SECRETIONS. PATIENT REFUSES SUCTION OCCASIONALLY AND BECOME COMBATIVE, NURSE AWARE. NO DISTRESS NOTED AT THIS TIME. AMBU BAG AND SPARE TRACH AT [facility].
--- NOTE | 2016-07-23 13:40 | NUR ---
Mercedes from the [facility] office came to complete advanced directive paperwork with resident. However, when she asked resident if he wanted to complete paperwork resident shook his head "no." Mercedes asked the resident twice and answer remained the same. She stated that if resident changes his mind, she can call the [facility] office again.
[2016-07-23] MEDS: FIBERSOURCE HN 1,000 ML BOTTLE GT PRN (18:01)
[2016-07-23 19:43] VITALS: BP 122/60
[2016-07-23] MEDS: NEOMY SULF/BACITRAC ZN/POLY 15 GM TUBE TP SCH (20:47)
[2016-07-24] MEDS: SUCRALFATE 1 G/10 ML UDC GT SCH ×6 (01:14→21:17)
[2016-07-24] MEDS: ALBUTEROL FS 2.5 MG/0.5 ML VIAL.NEB NEB SCH ×4 (01:58→20:16)
[2016-07-24] MEDS: IPRATROPIUM NEB FS 0.5 MG/2.5 ML AMPUL.NEB IH SCH ×4 (01:58→20:16)
[2016-07-24] MEDS: OMEPRAZOLE 20 MG CAPSULE.DR GT SCH (05:23)
[2016-07-24] MEDS: POLYVINYL ALCOHOL 15 ML BOTTLE EACHEYE SCH ×3 (05:23→21:17)
--- NOTE | 2016-07-24 06:33 | NUR ---
Patient noted pinkish to reddish secretions,suctioned as needed.Pt occasionally refused suctioning and become combative when you insist,explained benefits but pt still don't listened.
[2016-07-24 07:45] VITALS: BP 111/68
[2016-07-24] MEDS: OCUSOFT LID SCRUB TP SCH ×2 (08:57→17:19)
[2016-07-24] MEDS: ASCORBIC ACID 500 MG TABLET GT SCH (08:57)
[2016-07-24] MEDS: HYDROGEN PEROXIDE 480 ML BOTTLE TP SCH ×2 (08:57→21:18)
[2016-07-24] MEDS: Z GUARD REMEDY 4 OZ OINT TP SCH ×2 (08:57→21:18)
[2016-07-24] MEDS: MULTI-DELYN GT SCH (08:57)
[2016-07-24] MEDS: CHLORHEXIDINE GLUCONATE 15 ML UDC MM SCH ×2 (08:57→17:19)
[2016-07-24] MEDS: SERTRALINE HCL 25 MG TABLET GT SCH (08:57)
[2016-07-24] MEDS: PROSOURCE / PROSTAT (PYXIS) 30 ML UDC GT SCH (08:57)
--- NOTE | 2016-07-24 16:35 | NUR ---
RT END OF THE SHIFT REPORT: PT. 76 Y OLD MALE REMAIN TRACHED ON VENT WITH NOTED SETTING, ALARMS ARE SET AND FUNCTIONAL, NO DISTRESS NOTED T/O SHIFT, VENT PLUGGED INTO RED OUTLET THX,S GIVEN INLINE AND RACHEAL. WELL NO A/R NOTED. EQUAL CHEST RISE NOTED CACERES'X FOR MINIMAL WHITE SECRETIONS, B/S BILATERALLY CLEAR/RALES ON BASES. NO CHANGES HME CHANGED AMBU BAG REMAIN AT THE BEDSIDE. REPORT WILL BE PASS TO PM SHIFT . Addendum: 07/24/16 at 1636 by MISSY HEATH RT Amended: Links added.
[2016-07-24 19:40] VITALS: BP 114/74
[2016-07-24] MEDS: ZINC OXIDE 56.7 GM TUBE TP SCH (21:18)
[2016-07-25] MEDS: IPRATROPIUM NEB FS 0.5 MG/2.5 ML AMPUL.NEB IH SCH ×4 (00:59→19:13)
[2016-07-25] MEDS: ALBUTEROL FS 2.5 MG/0.5 ML VIAL.NEB NEB SCH ×4 (00:59→19:13)
[2016-07-25] MEDS: SUCRALFATE 1 G/10 ML UDC GT SCH ×6 (01:00→20:43)
[2016-07-25] MEDS: FIBERSOURCE HN 1,000 ML BOTTLE GT PRN ×2 (03:44→21:36)
[2016-07-25] MEDS: OMEPRAZOLE 20 MG CAPSULE.DR GT SCH (05:23)
[2016-07-25] MEDS: POLYVINYL ALCOHOL 15 ML BOTTLE EACHEYE SCH ×3 (05:23→20:43)
[2016-07-25 07:59] VITALS: BP 112/74
[2016-07-25] MEDS: MULTI-DELYN GT SCH (08:50)
[2016-07-25] MEDS: PROSOURCE / PROSTAT (PYXIS) 30 ML UDC GT SCH (08:51)
[2016-07-25] MEDS: ASCORBIC ACID 500 MG TABLET GT SCH (08:51)
[2016-07-25] MEDS: CHLORHEXIDINE GLUCONATE 15 ML UDC MM SCH ×2 (08:51→17:00)
[2016-07-25] MEDS: SERTRALINE HCL 25 MG TABLET GT SCH (08:51)
[2016-07-25] MEDS: HYDROGEN PEROXIDE 480 ML BOTTLE TP SCH ×2 (08:52→20:44)
[2016-07-25] MEDS: Z GUARD REMEDY 4 OZ OINT TP SCH ×2 (08:52→20:44)
[2016-07-25] MEDS: OCUSOFT LID SCRUB TP SCH ×2 (08:52→17:00)
[2016-07-25] MEDS: ZINC OXIDE 56.7 GM TUBE TP SCH ×2 (08:52→20:44)
--- NOTE | 2016-07-25 14:29 | NUR ---
PATIENT RECEIVED WITH #6 ROBERT TRACH ON HT70 TRACH. AT APPROX. 0710 PATIENT WAS SUCTIONED AND LAVAGED TO OBTAIN MUCUS PLUGS AND THIN BLOODY SECRETIONS. VERTICAL CONTOUR BAND SAW OPERATOR (MAYRA) NOTIFIED. PATIENT IS ALERT AND COMBATIVE WHEN ATTEMPTED TO SUCTION. WITH ASSISTANCE PATIENT SUCTIONED. AMBU BAG AND SPARE TRACH AT [facility].
--- NOTE | 2016-07-25 15:09 | NUR ---
SW filled out quote request from [employer] online to see about transporting resident to [place], as sister wanted to see how much it would cost. Received call back from Vanessa who stated that she will work on obtaining a quote and will email it to the SW. Will notify sister Elizabeth. Per Dr. Reese, he will have to re-evaluate in a few weeks and Elizabeth has to be notified about the cost to see if she wants to follow through with it. will keep sister updated.
--- NOTE | 2016-07-25 16:10 | NUR ---
IDT meeting held, team reviewed current orders, medications and treatment. Informed Dr. Reese that resident with mucus plug this morning during suctioning and with thin bloody secretions. Resident refusing tracheal suctioning but later on agreed after explaining risk and benefits. New order given for Mucomyst and trach change to [place] # 6, distal extra long by ENT. Left a message to Dr. Greco, ENT, spoke with Court regarding trach change order. Prepared supplies at the bedside. Orders noted and carried out. Resident informed of new order and trach change.
[2016-07-25 19:25] VITALS: BP 126/76
[2016-07-25] MEDS: ACETYLCYSTEINE 10% SOLN 400 MG/4 ML VIAL IH SCH (21:53)
[2016-07-26] MEDS: SUCRALFATE 1 G/10 ML UDC GT SCH ×6 (00:13→21:11)
[2016-07-26] MEDS: TEMAZEPAM 7.5 MG CAPSULE GT PRN (00:33)
[2016-07-26] MEDS: IPRATROPIUM NEB FS 0.5 MG/2.5 ML AMPUL.NEB IH SCH ×4 (01:48→19:50)
[2016-07-26] MEDS: ALBUTEROL FS 2.5 MG/0.5 ML VIAL.NEB NEB SCH ×4 (01:48→19:50)
[2016-07-26] MEDS: POLYVINYL ALCOHOL 15 ML BOTTLE EACHEYE SCH ×3 (05:43→21:11)
[2016-07-26] MEDS: OMEPRAZOLE 20 MG CAPSULE.DR GT SCH (05:43)
[2016-07-26] MEDS: ACETYLCYSTEINE 10% SOLN 400 MG/4 ML VIAL IH SCH ×2 (07:46→21:00)
[2016-07-26] MEDS: CHLORHEXIDINE GLUCONATE 15 ML UDC MM SCH ×2 (09:00→17:00)
[2016-07-26] MEDS: OCUSOFT LID SCRUB TP SCH ×2 (09:00→17:00)
[2016-07-26] MEDS: MULTI-DELYN GT SCH (09:24)
[2016-07-26] MEDS: ASCORBIC ACID 500 MG TABLET GT SCH (09:24)
[2016-07-26] MEDS: PROSOURCE / PROSTAT (PYXIS) 30 ML UDC GT SCH (09:24)
[2016-07-26] MEDS: SERTRALINE HCL 25 MG TABLET GT SCH (09:24)
[2016-07-26] MEDS: HYDROGEN PEROXIDE 480 ML BOTTLE TP SCH ×2 (09:25→21:11)
[2016-07-26] MEDS: Z GUARD REMEDY 4 OZ OINT TP SCH ×2 (09:25→21:11)
[2016-07-26] MEDS: ZINC OXIDE 56.7 GM TUBE TP SCH ×2 (09:25→21:11)
--- NOTE | 2016-07-26 12:08 | NUR ---
Reported to Dr. Vance, resident noted with blood in the stool and with thin bloody secretions. New order given for new set of CBC and BMP. Orders noted and carried out. Elizabeth, sister called and made her aware of new order and presence of blood in the stool and trach.
[2016-07-26] MEDS: FIBERSOURCE HN 1,000 ML BOTTLE GT PRN (13:16)
[2016-07-26 13:30] LABS: BASOPHILS % (AUTO) 0.3 % (0.0-2.0); EOSINOPHILS # (AUTO) 0.1 /CMM (0.0-0.7); HEMATOCRIT 26 % (39-51); HEMOGLOBIN 8.6 g/dL (13.5-17.5); LYMPHOCYTES # (AUTO) 0.9 /CMM (0.8-4.8); LYMPHOCYTES % (AUTO) 9.3 % (20.0-44.0); MEAN CORPUSCULAR HEMOGLOBIN 29 PG (26.0-33.0); MEAN CORPUSCULAR HGB CONC 33 g/dl (31.0-36.0); MEAN CORPUSCULAR VOLUME 88 fL (80-96); MONOCYTES # (AUTO) 0.3 /CMM (0.1-1.30); MONOCYTES % (AUTO) 3.4 % (2.0-12.0); PLATELET COUNT (AUTO) 270 /CMM (150-450); RDW COEFFICIENT OF VARIATION 16.4 (11.5-15.0); RED BLOOD CELL COUNT(AUTO) 2.98 MIL/uL (4.5-6.0); WHITE BLOOD COUNT (AUTO) 9.3 K/uL (4.3-11.0)
[2016-07-26 13:42] LABS: CALCIUM, SERUM 9.6 mg/dL (8.5-10.1); CREATININE 0.6 mg/dL (0.6-1.3); POTASSIUM 5.1 mmol/L (3.5-5.1)
--- NOTE | 2016-07-26 15:04 | NUR ---
Left a message to Dr. Vance regarding result of CBC and BMP done today. Elizabeth aware of the result.
[2016-07-26 19:57] VITALS: BP 105/62
[2016-07-26] MEDS: NEOMY SULF/BACITRAC ZN/POLY 15 GM TUBE TP SCH (20:00)
[2016-07-27] MEDS: SUCRALFATE 1 G/10 ML UDC GT SCH ×6 (01:03→20:46)
[2016-07-27] MEDS: IPRATROPIUM NEB FS 0.5 MG/2.5 ML AMPUL.NEB IH SCH ×4 (01:55→19:48)
[2016-07-27] MEDS: ALBUTEROL FS 2.5 MG/0.5 ML VIAL.NEB NEB SCH ×4 (01:55→19:48)
[2016-07-27] MEDS: FIBERSOURCE HN 1,000 ML BOTTLE GT PRN (02:19)
[2016-07-27] MEDS: OMEPRAZOLE 20 MG CAPSULE.DR GT SCH (05:25)
[2016-07-27] MEDS: POLYVINYL ALCOHOL 15 ML BOTTLE EACHEYE SCH ×3 (05:25→20:46)
[2016-07-27 08:05] VITALS: BP 108/65
[2016-07-27] MEDS: ACETYLCYSTEINE 10% SOLN 400 MG/4 ML VIAL IH SCH ×2 (08:12→20:08)
[2016-07-27] MEDS: ASCORBIC ACID 500 MG TABLET GT SCH (09:00)
[2016-07-27] MEDS: ZINC OXIDE 56.7 GM TUBE TP SCH ×2 (09:00→20:47)
[2016-07-27] MEDS: Z GUARD REMEDY 4 OZ OINT TP SCH ×2 (09:00→20:46)
[2016-07-27] MEDS: MULTI-DELYN GT SCH (09:00)
[2016-07-27] MEDS: SERTRALINE HCL 25 MG TABLET GT SCH (09:00)
[2016-07-27] MEDS: CHLORHEXIDINE GLUCONATE 15 ML UDC MM SCH ×2 (09:00→17:00)
[2016-07-27] MEDS: OCUSOFT LID SCRUB TP SCH ×2 (09:00→17:00)
[2016-07-27] MEDS: HYDROGEN PEROXIDE 480 ML BOTTLE TP SCH ×2 (09:00→20:46)
[2016-07-27] MEDS: PROSOURCE / PROSTAT (PYXIS) 30 ML UDC GT SCH (09:00)
--- NOTE | 2016-07-27 09:37 | NUR ---
Charge nurse walked into the pt's room to let the nurse know that her other pt needs something from her. Charge nurse saw hitting the nurse with his arms. Nurse was talking with the pt and explaining to him what she was doing, that she was declogging G-tube, but pt still hit the nurse. Charge nurse politely asked the pt not to hit the nurse and explained to him what the nurse is doing. Pt seemed upset, he was yelling and pointing his finger at the nurse and charge nurse. He told the nurse, "I don't like you." Nurse said he has hit her several times this morning and she always explained to the pt what she was doing. Nurse and charge nurse left pt's room, making sure pt is comfortable and environment is safe.
[2016-07-27 20:00] VITALS: BP 106/66
[2016-07-28] MEDS: SUCRALFATE 1 G/10 ML UDC GT SCH ×6 (01:00→20:31)
[2016-07-28] MEDS: ALBUTEROL FS 2.5 MG/0.5 ML VIAL.NEB NEB SCH ×4 (01:08→20:07)
[2016-07-28] MEDS: IPRATROPIUM NEB FS 0.5 MG/2.5 ML AMPUL.NEB IH SCH ×4 (01:08→20:07)
[2016-07-28] MEDS: POLYVINYL ALCOHOL 15 ML BOTTLE EACHEYE SCH ×3 (05:43→20:32)
[2016-07-28] MEDS: OMEPRAZOLE 20 MG CAPSULE.DR GT SCH (05:43)
[2016-07-28] MEDS: ACETYLCYSTEINE 10% SOLN 400 MG/4 ML VIAL IH SCH ×3 (07:30→20:07)
[2016-07-28 08:23] VITALS: BP 106/68
[2016-07-28] MEDS: HYDROGEN PEROXIDE 480 ML BOTTLE TP SCH ×2 (09:00→20:32)
[2016-07-28] MEDS: Z GUARD REMEDY 4 OZ OINT TP SCH ×2 (09:00→20:32)
[2016-07-28] MEDS: ZINC OXIDE 56.7 GM TUBE TP SCH ×2 (09:00→20:33)
[2016-07-28] MEDS: MULTI-DELYN GT SCH (09:28)
[2016-07-28] MEDS: PROSOURCE / PROSTAT (PYXIS) 30 ML UDC GT SCH (09:28)
[2016-07-28] MEDS: ASCORBIC ACID 500 MG TABLET GT SCH (09:29)
[2016-07-28] MEDS: SERTRALINE HCL 25 MG TABLET GT SCH (09:30)
[2016-07-28] MEDS: CHLORHEXIDINE GLUCONATE 15 ML UDC MM SCH ×2 (09:30→16:56)
[2016-07-28] MEDS: OCUSOFT LID SCRUB TP SCH ×2 (09:30→16:56)
--- NOTE | 2016-07-28 12:16 | NUR ---
Pt pulled out his G-tube while LACEY Bella was cleaning him. manager workers compensation Kyung at bedside trying to calm down pt and prevent him from hitting the PHOTOGRAPHIC DOUBLE while she was cleaning him. Pt was trying to hit the PHOTOGRAPHIC DOUBLE. Replaced pt's G-tube and notified COLLAR STAY FUSER TENDER Isidra Ayala. Received order to do KUB to verify G-tube placement.
[2016-07-28] MEDS ORDERED: DIATR MEGLU/DIATRIZOATE SODIUM 30 ML BOTTLE (GASTROGRAPHIN) PO ONE (12:49)
--- NOTE | 2016-07-28 12:59 | NUR ---
PATIENT'S MUCOMYST SCHEDULED TIME CHANGED TO PAIR IT UP WITH ALBUTEROL AND ATROVENT TREATMENT.
--- NOTE | 2016-07-28 15:55 | NUR ---
KUB showed that the G-tube is in place within the gastric lumen. Received order to resume using the G-tube for feeding and medications.
--- NOTE | 2016-07-28 16:45 | NUR ---
TRACH CARE DONE WITH NO PROBLEMS.
[2016-07-28] MEDS: FIBERSOURCE HN 1,000 ML BOTTLE GT PRN (17:12)
[2016-07-28 19:45] VITALS: BP 100/64
[2016-07-29] MEDS: SUCRALFATE 1 G/10 ML UDC GT SCH ×6 (00:45→20:43)
[2016-07-29] MEDS: IPRATROPIUM NEB FS 0.5 MG/2.5 ML AMPUL.NEB IH SCH ×4 (01:05→19:30)
[2016-07-29] MEDS: ALBUTEROL FS 2.5 MG/0.5 ML VIAL.NEB NEB SCH ×4 (01:06→19:30)
[2016-07-29] MEDS: TEMAZEPAM 7.5 MG CAPSULE GT PRN (01:46)
[2016-07-29] MEDS: POLYVINYL ALCOHOL 15 ML BOTTLE EACHEYE SCH ×3 (05:55→21:07)
[2016-07-29] MEDS: OMEPRAZOLE 20 MG CAPSULE.DR GT SCH (05:56)
[2016-07-29 07:58] VITALS: BP 98/55
[2016-07-29] MEDS: ACETYLCYSTEINE 10% SOLN 400 MG/4 ML VIAL IH SCH ×2 (08:05→19:30)
[2016-07-29] MEDS: CHLORHEXIDINE GLUCONATE 15 ML UDC MM SCH ×2 (08:19→16:21)
[2016-07-29] MEDS: ASCORBIC ACID 500 MG TABLET GT SCH (08:19)
[2016-07-29] MEDS: OCUSOFT LID SCRUB TP SCH ×2 (08:19→16:21)
[2016-07-29] MEDS: MULTI-DELYN GT SCH (08:19)
[2016-07-29] MEDS: PROSOURCE / PROSTAT (PYXIS) 30 ML UDC GT SCH (08:19)
[2016-07-29] MEDS: HYDROGEN PEROXIDE 480 ML BOTTLE TP SCH ×2 (08:19→20:43)
[2016-07-29] MEDS: SERTRALINE HCL 25 MG TABLET GT SCH (08:19)
[2016-07-29] MEDS: Z GUARD REMEDY 4 OZ OINT TP SCH ×2 (08:20→11:40)
[2016-07-29] MEDS: ZINC OXIDE 56.7 GM TUBE TP SCH ×2 (08:20→11:40)
--- NOTE | 2016-07-29 09:00 | NUR ---
Seen and examined by Dr Reese with no new order
--- NOTE | 2016-07-29 09:30 | NUR ---
RN NOTE RECEIVED PT ON ON , RESPIRATION EVEN AND UNLABORED, TRACH SUCTIONING DONE , NO DISTRESS NOTED, CONTINUE TO MONITOR
--- NOTE | 2016-07-29 18:35 | NUR ---
RN NOTES PT REMAINS STABLE , NO SIGNIFICANT CHANGES NOTED ON THIS SHIFT .
[2016-07-29 19:52] VITALS: BP 96/57
[2016-07-30] MEDS: SUCRALFATE 1 G/10 ML UDC GT SCH ×6 (00:28→21:08)
[2016-07-30] MEDS: IPRATROPIUM NEB FS 0.5 MG/2.5 ML AMPUL.NEB IH SCH ×4 (02:27→20:12)
[2016-07-30] MEDS: ALBUTEROL FS 2.5 MG/0.5 ML VIAL.NEB NEB SCH ×4 (02:27→20:12)
[2016-07-30] MEDS: POLYVINYL ALCOHOL 15 ML BOTTLE EACHEYE SCH ×3 (05:45→21:08)
[2016-07-30] MEDS: OMEPRAZOLE 20 MG CAPSULE.DR GT SCH (05:45)
[2016-07-30] MEDS: ACETYLCYSTEINE 10% SOLN 400 MG/4 ML VIAL IH SCH ×2 (07:40→20:12)
[2016-07-30 08:01] VITALS: BP 123/63
[2016-07-30] MEDS: CHLORHEXIDINE GLUCONATE 15 ML UDC MM SCH ×2 (09:00→16:56)
[2016-07-30] MEDS: OCUSOFT LID SCRUB TP SCH ×2 (09:00→16:56)
--- NOTE | 2016-07-30 09:05 | NUR ---
Left a message for LADAN Renae through his staff Gin regarding trach change.
[2016-07-30] MEDS: PROSOURCE / PROSTAT (PYXIS) 30 ML UDC GT SCH (09:36)
[2016-07-30] MEDS: MULTI-DELYN GT SCH (09:36)
[2016-07-30] MEDS: ASCORBIC ACID 500 MG TABLET GT SCH (09:36)
[2016-07-30] MEDS: SERTRALINE HCL 25 MG TABLET GT SCH (09:36)
[2016-07-30] MEDS: Z GUARD REMEDY 4 OZ OINT TP SCH ×2 (09:37→21:08)
[2016-07-30] MEDS: HYDROGEN PEROXIDE 480 ML BOTTLE TP SCH ×2 (09:37→21:08)
[2016-07-30] MEDS: ZINC OXIDE 56.7 GM TUBE TP SCH ×2 (09:37→21:08)
--- NOTE | 2016-07-30 15:30 | NUR ---
Dr. Landrum, ENT returned the call and he stated that he will see patient tomorrow between 0930 to 1000. Endorsed.
[2016-07-30 20:00] VITALS: BP 96/57
[2016-07-30] MEDS: TEMAZEPAM 7.5 MG CAPSULE GT PRN (21:56)
[2016-07-31] MEDS: SUCRALFATE 1 G/10 ML UDC GT SCH ×6 (01:00→20:06)
[2016-07-31] MEDS: IPRATROPIUM NEB FS 0.5 MG/2.5 ML AMPUL.NEB IH SCH ×4 (01:00→19:36)
[2016-07-31] MEDS: ALBUTEROL FS 2.5 MG/0.5 ML VIAL.NEB NEB SCH ×4 (01:00→19:36)
[2016-07-31] MEDS: FIBERSOURCE HN 1,000 ML BOTTLE GT PRN ×2 (05:10→23:36)
[2016-07-31] MEDS: SIMETHICONE SUSP 40 MG/0.6 ML BOTTLE GT PRN ×2 (05:10→20:07)
[2016-07-31] MEDS: POLYVINYL ALCOHOL 15 ML BOTTLE EACHEYE SCH ×3 (05:10→20:06)
[2016-07-31] MEDS: OMEPRAZOLE 20 MG CAPSULE.DR GT SCH (05:10)
[2016-07-31] MEDS: ACETYLCYSTEINE 10% SOLN 400 MG/4 ML VIAL IH SCH ×2 (07:21→19:36)
[2016-07-31 07:33] VITALS: BP 114/56
[2016-07-31] MEDS: OCUSOFT LID SCRUB TP SCH ×2 (09:00→16:29)
[2016-07-31] MEDS: CHLORHEXIDINE GLUCONATE 15 ML UDC MM SCH ×2 (09:41→16:29)
[2016-07-31] MEDS: SERTRALINE HCL 25 MG TABLET GT SCH (09:41)
[2016-07-31] MEDS: MULTI-DELYN GT SCH (09:41)
[2016-07-31] MEDS: ASCORBIC ACID 500 MG TABLET GT SCH (09:41)
[2016-07-31] MEDS: PROSOURCE / PROSTAT (PYXIS) 30 ML UDC GT SCH (09:41)
[2016-07-31] MEDS: HYDROGEN PEROXIDE 480 ML BOTTLE TP SCH ×2 (09:42→20:06)
[2016-07-31] MEDS: Z GUARD REMEDY 4 OZ OINT TP SCH ×2 (09:43→20:06)
[2016-07-31] MEDS: ZINC OXIDE 56.7 GM TUBE TP SCH ×2 (09:43→20:06)
--- NOTE | 2016-07-31 12:40 | NUR ---
Dr. Landrum changed pt's trach tube to Shiley # 6 XLT. Pt tolerated procedure well. No respiratory distress.
--- NOTE | 2016-07-31 15:43 | NUR ---
Pt tolerated current vent settings well. Vent is plugged into a red outlet, alarms are set and audible. Ambu bag at bedside. Addendum: 07/31/16 at 1543 by KAYLIN GRANADOS RT Amended: Links added.
[2016-07-31 21:24] VITALS: BP 119/75
[2016-07-31] MEDS: TEMAZEPAM 7.5 MG CAPSULE GT PRN (23:08)
[2016-08-01] MEDS: SUCRALFATE 1 G/10 ML UDC GT SCH ×6 (00:50→20:37)
[2016-08-01] MEDS: IPRATROPIUM NEB FS 0.5 MG/2.5 ML AMPUL.NEB IH SCH ×4 (01:25→20:05)
[2016-08-01] MEDS: ALBUTEROL FS 2.5 MG/0.5 ML VIAL.NEB NEB SCH ×4 (01:25→20:05)
[2016-08-01] MEDS: OMEPRAZOLE 20 MG CAPSULE.DR GT SCH (05:13)
[2016-08-01] MEDS: POLYVINYL ALCOHOL 15 ML BOTTLE EACHEYE SCH ×3 (05:13→20:37)
[2016-08-01 07:59] VITALS: BP 109/63
[2016-08-01] MEDS: SERTRALINE HCL 25 MG TABLET GT SCH (08:42)
[2016-08-01] MEDS: ASCORBIC ACID 500 MG TABLET GT SCH (08:42)
[2016-08-01] MEDS: PROSOURCE / PROSTAT (PYXIS) 30 ML UDC GT SCH (08:42)
[2016-08-01] MEDS: MULTI-DELYN GT SCH (08:42)
[2016-08-01] MEDS: OCUSOFT LID SCRUB TP SCH ×2 (08:43→16:37)
[2016-08-01] MEDS: CHLORHEXIDINE GLUCONATE 15 ML UDC MM SCH ×2 (08:43→16:36)
[2016-08-01] MEDS: ACETAMINOPHEN 650 MG/20 ML UDC- FOR SA PATIENTS ONLY GT PRN (08:45)
[2016-08-01] MEDS: MORPHINE SULFATE 10 MG/5 ML GT PRN (09:52)
[2016-08-01] MEDS: ZINC OXIDE 56.7 GM TUBE TP SCH ×2 (11:00→20:37)
[2016-08-01] MEDS: Z GUARD REMEDY 4 OZ OINT TP SCH ×2 (11:00→20:37)
[2016-08-01] MEDS: HYDROGEN PEROXIDE 480 ML BOTTLE TP SCH ×2 (11:00→20:37)
--- NOTE | 2016-08-01 12:03 | NUR ---
Notified Dr. Reese of patient c/o pain in the L knee and L leg. He is observed grabbing his L leg from time to time. New order given to do bilateral Doppler US of the lower extremities and Xray of the L knee. Resident informed of the test. Orders carried out.
--- NOTE | 2016-08-01 15:30 | NUR ---
Informed Dr. Reese of negative knee Xray and negative bilateral lower extremity Doppler US. NNO given. Resident medicated with PRN pain medication.
[2016-08-01] MEDS: FIBERSOURCE HN 1,000 ML BOTTLE GT PRN (16:37)
[2016-08-01 20:12] VITALS: BP 94/57
[2016-08-01] MEDS: TEMAZEPAM 7.5 MG CAPSULE GT PRN (22:22)
[2016-08-02] MEDS: IPRATROPIUM NEB FS 0.5 MG/2.5 ML AMPUL.NEB IH SCH ×4 (00:34→20:10)
[2016-08-02] MEDS: ALBUTEROL FS 2.5 MG/0.5 ML VIAL.NEB NEB SCH ×4 (00:34→20:10)
[2016-08-02] MEDS: SUCRALFATE 1 G/10 ML UDC GT SCH ×6 (00:52→20:29)
[2016-08-02] MEDS: POLYVINYL ALCOHOL 15 ML BOTTLE EACHEYE SCH ×3 (05:12→20:29)
[2016-08-02] MEDS: OMEPRAZOLE 20 MG CAPSULE.DR GT SCH (05:12)
[2016-08-02 07:37] VITALS: BP 116/70
[2016-08-02] MEDS: OCUSOFT LID SCRUB TP SCH ×2 (09:00→17:00)
[2016-08-02] MEDS: CHLORHEXIDINE GLUCONATE 15 ML UDC MM SCH ×2 (09:00→17:00)
[2016-08-02] MEDS: ASCORBIC ACID 500 MG TABLET GT SCH (09:06)
[2016-08-02] MEDS: SERTRALINE HCL 25 MG TABLET GT SCH (09:06)
[2016-08-02] MEDS: MULTI-DELYN GT SCH (09:06)
[2016-08-02] MEDS: PROSOURCE / PROSTAT (PYXIS) 30 ML UDC GT SCH (09:06)
[2016-08-02] MEDS: Z GUARD REMEDY 4 OZ OINT TP SCH ×2 (09:07→20:29)
[2016-08-02] MEDS: ZINC OXIDE 56.7 GM TUBE TP SCH ×2 (09:07→20:29)
[2016-08-02] MEDS: HYDROGEN PEROXIDE 480 ML BOTTLE TP SCH ×2 (09:07→20:29)
[2016-08-02] MEDS: FIBERSOURCE HN 1,000 ML BOTTLE GT PRN (11:42)
[2016-08-02 19:45] VITALS: BP 109/66
[2016-08-02] MEDS: TEMAZEPAM 7.5 MG CAPSULE GT PRN (22:00)
[2016-08-03] MEDS: SUCRALFATE 1 G/10 ML UDC GT SCH ×6 (00:45→21:34)
[2016-08-03] MEDS: FIBERSOURCE HN 1,000 ML BOTTLE GT PRN ×2 (01:38→17:33)
[2016-08-03] MEDS: IPRATROPIUM NEB FS 0.5 MG/2.5 ML AMPUL.NEB IH SCH ×4 (02:15→20:11)
[2016-08-03] MEDS: ALBUTEROL FS 2.5 MG/0.5 ML VIAL.NEB NEB SCH ×4 (02:15→20:11)
[2016-08-03] MEDS: POLYVINYL ALCOHOL 15 ML BOTTLE EACHEYE SCH ×3 (05:00→21:34)
[2016-08-03] MEDS: OMEPRAZOLE 20 MG CAPSULE.DR GT SCH (05:13)
[2016-08-03] MEDS: SIMETHICONE SUSP 40 MG/0.6 ML BOTTLE GT PRN (05:13)
[2016-08-03 07:42] VITALS: BP 102/61
[2016-08-03] MEDS: HYDROGEN PEROXIDE 480 ML BOTTLE TP SCH ×2 (09:00→21:34)
[2016-08-03] MEDS: Z GUARD REMEDY 4 OZ OINT TP SCH ×2 (09:00→21:34)
[2016-08-03] MEDS: ASCORBIC ACID 500 MG TABLET GT SCH (09:00)
[2016-08-03] MEDS: OCUSOFT LID SCRUB TP SCH ×2 (09:00→16:24)
[2016-08-03] MEDS: MULTI-DELYN GT SCH (09:00)
[2016-08-03] MEDS: ZINC OXIDE 56.7 GM TUBE TP SCH ×2 (09:00→21:35)
[2016-08-03] MEDS: PROSOURCE / PROSTAT (PYXIS) 30 ML UDC GT SCH (09:00)
[2016-08-03] MEDS: CHLORHEXIDINE GLUCONATE 15 ML UDC MM SCH ×2 (09:00→16:24)
[2016-08-03] MEDS: SERTRALINE HCL 25 MG TABLET GT SCH (10:26)
[2016-08-03 19:41] VITALS: BP 103/63
[2016-08-04] MEDS: SUCRALFATE 1 G/10 ML UDC GT SCH ×6 (01:14→20:54)
[2016-08-04] MEDS: ALBUTEROL FS 2.5 MG/0.5 ML VIAL.NEB NEB SCH ×4 (01:24→19:59)
[2016-08-04] MEDS: IPRATROPIUM NEB FS 0.5 MG/2.5 ML AMPUL.NEB IH SCH ×4 (01:24→19:59)
[2016-08-04] MEDS: OMEPRAZOLE 20 MG CAPSULE.DR GT SCH (05:06)
[2016-08-04] MEDS: POLYVINYL ALCOHOL 15 ML BOTTLE EACHEYE SCH ×3 (05:07→20:54)
[2016-08-04] MEDS: FIBERSOURCE HN 1,000 ML BOTTLE GT PRN ×2 (05:34→20:55)
[2016-08-04 08:04] VITALS: BP 98/59
[2016-08-04] MEDS: Z GUARD REMEDY 4 OZ OINT TP SCH ×2 (09:00→20:55)
[2016-08-04] MEDS: OCUSOFT LID SCRUB TP SCH ×2 (09:00→16:33)
[2016-08-04] MEDS: ASCORBIC ACID 500 MG TABLET GT SCH (09:00)
[2016-08-04] MEDS: SERTRALINE HCL 25 MG TABLET GT SCH (09:00)
[2016-08-04] MEDS: HYDROGEN PEROXIDE 480 ML BOTTLE TP SCH ×2 (09:00→20:54)
[2016-08-04] MEDS: ZINC OXIDE 56.7 GM TUBE TP SCH ×2 (09:00→20:55)
[2016-08-04] MEDS: CHLORHEXIDINE GLUCONATE 15 ML UDC MM SCH ×2 (09:00→16:33)
[2016-08-04] MEDS: PROSOURCE / PROSTAT (PYXIS) 30 ML UDC GT SCH (09:59)
[2016-08-04] MEDS: MULTI-DELYN GT SCH (09:59)
--- NOTE | 2016-08-04 15:29 | NUR ---
Patient received trached on HT 70 vent. Alarms verified and audible. Patient becomes angry when suction is attempted but explained to him that it has to be done. Suctioned and lavaged large amount of thick stacy secretions. Vent plugged into red outlet. Ambu bag at [facility].
[2016-08-04 19:42] VITALS: BP 97/60
[2016-08-05] MEDS: SUCRALFATE 1 G/10 ML UDC GT SCH ×6 (01:10→21:55)
[2016-08-05] MEDS: ALBUTEROL FS 2.5 MG/0.5 ML VIAL.NEB NEB SCH ×4 (02:18→20:26)
[2016-08-05] MEDS: IPRATROPIUM NEB FS 0.5 MG/2.5 ML AMPUL.NEB IH SCH ×4 (02:18→20:26)
[2016-08-05] MEDS: POLYVINYL ALCOHOL 15 ML BOTTLE EACHEYE SCH ×3 (05:16→21:54)
[2016-08-05] MEDS: OMEPRAZOLE 20 MG CAPSULE.DR GT SCH (05:16)
[2016-08-05 08:04] VITALS: BP 143/65
[2016-08-05] MEDS: ASCORBIC ACID 500 MG TABLET GT SCH (09:00)
[2016-08-05] MEDS: OCUSOFT LID SCRUB TP SCH ×2 (09:00→17:31)
[2016-08-05] MEDS: ZINC OXIDE 56.7 GM TUBE TP SCH ×2 (09:00→21:55)
[2016-08-05] MEDS: HYDROGEN PEROXIDE 480 ML BOTTLE TP SCH ×2 (09:00→21:55)
[2016-08-05] MEDS: MULTI-DELYN GT SCH (09:00)
[2016-08-05] MEDS: CHLORHEXIDINE GLUCONATE 15 ML UDC MM SCH ×2 (09:00→17:31)
[2016-08-05] MEDS: Z GUARD REMEDY 4 OZ OINT TP SCH ×2 (09:00→21:56)
[2016-08-05] MEDS: SERTRALINE HCL 25 MG TABLET GT SCH (09:00)
[2016-08-05] MEDS: PROSOURCE / PROSTAT (PYXIS) 30 ML UDC GT SCH (09:00)
--- NOTE | 2016-08-05 10:05 | NUR ---
Seen and examined by Dr Reese with no new order
[2016-08-05 19:56] VITALS: BP 104/64
[2016-08-06] MEDS: SUCRALFATE 1 G/10 ML UDC GT SCH ×6 (00:33→20:25)
[2016-08-06] MEDS: ALBUTEROL FS 2.5 MG/0.5 ML VIAL.NEB NEB SCH ×4 (02:26→19:21)
[2016-08-06] MEDS: IPRATROPIUM NEB FS 0.5 MG/2.5 ML AMPUL.NEB IH SCH ×4 (02:26→19:21)
[2016-08-06] MEDS: FIBERSOURCE HN 1,000 ML BOTTLE GT PRN ×2 (04:40→18:58)
[2016-08-06] MEDS: POLYVINYL ALCOHOL 15 ML BOTTLE EACHEYE SCH ×3 (04:47→20:25)
[2016-08-06] MEDS: OMEPRAZOLE 20 MG CAPSULE.DR GT SCH (05:08)
[2016-08-06 08:08] VITALS: BP 96/58
[2016-08-06] MEDS: ZINC OXIDE 56.7 GM TUBE TP SCH ×2 (09:03→20:25)
[2016-08-06] MEDS: ASCORBIC ACID 500 MG TABLET GT SCH (09:03)
[2016-08-06] MEDS: SERTRALINE HCL 25 MG TABLET GT SCH (09:03)
[2016-08-06] MEDS: HYDROGEN PEROXIDE 480 ML BOTTLE TP SCH ×2 (09:03→20:25)
[2016-08-06] MEDS: CHLORHEXIDINE GLUCONATE 15 ML UDC MM SCH ×2 (09:03→17:14)
[2016-08-06] MEDS: OCUSOFT LID SCRUB TP SCH ×2 (09:03→17:14)
[2016-08-06] MEDS: PROSOURCE / PROSTAT (PYXIS) 30 ML UDC GT SCH (09:03)
[2016-08-06] MEDS: MULTI-DELYN GT SCH (09:03)
[2016-08-06] MEDS: Z GUARD REMEDY 4 OZ OINT TP SCH ×2 (09:03→20:25)
[2016-08-06 20:00] VITALS: BP 130/71
[2016-08-07] MEDS: SUCRALFATE 1 G/10 ML UDC GT SCH ×6 (01:10→20:22)
[2016-08-07] MEDS: ALBUTEROL FS 2.5 MG/0.5 ML VIAL.NEB NEB SCH ×4 (01:34→19:38)
[2016-08-07] MEDS: IPRATROPIUM NEB FS 0.5 MG/2.5 ML AMPUL.NEB IH SCH ×4 (01:34→19:38)
[2016-08-07] MEDS: POLYVINYL ALCOHOL 15 ML BOTTLE EACHEYE SCH ×3 (05:08→20:22)
[2016-08-07] MEDS: OMEPRAZOLE 20 MG CAPSULE.DR GT SCH (05:08)
[2016-08-07 07:45] VITALS: BP 113/65
[2016-08-07] MEDS: ASCORBIC ACID 500 MG TABLET GT SCH (09:40)
[2016-08-07] MEDS: CHLORHEXIDINE GLUCONATE 15 ML UDC MM SCH ×2 (09:40→17:36)
[2016-08-07] MEDS: MULTI-DELYN GT SCH (09:40)
[2016-08-07] MEDS: PROSOURCE / PROSTAT (PYXIS) 30 ML UDC GT SCH (09:40)
[2016-08-07] MEDS: SERTRALINE HCL 25 MG TABLET GT SCH (09:40)
[2016-08-07] MEDS: OCUSOFT LID SCRUB TP SCH ×2 (09:41→17:36)
[2016-08-07] MEDS: Z GUARD REMEDY 4 OZ OINT TP SCH ×2 (09:41→20:22)
[2016-08-07] MEDS: HYDROGEN PEROXIDE 480 ML BOTTLE TP SCH ×2 (09:41→20:22)
[2016-08-07] MEDS: ZINC OXIDE 56.7 GM TUBE TP SCH ×2 (09:41→20:22)
--- NOTE | 2016-08-07 18:45 | NUR ---
Seen by Dr. Vance. Received order to check pt's weight weekly for one month.
[2016-08-07 20:53] VITALS: BP 119/77
[2016-08-08] MEDS: ALBUTEROL FS 2.5 MG/0.5 ML VIAL.NEB NEB SCH ×4 (01:36→20:13)
[2016-08-08] MEDS: IPRATROPIUM NEB FS 0.5 MG/2.5 ML AMPUL.NEB IH SCH ×4 (01:36→20:13)
[2016-08-08] MEDS: SUCRALFATE 1 G/10 ML UDC GT SCH ×6 (01:58→20:08)
[2016-08-08] MEDS: POLYVINYL ALCOHOL 15 ML BOTTLE EACHEYE SCH ×3 (05:14→20:08)
[2016-08-08] MEDS: OMEPRAZOLE 20 MG CAPSULE.DR GT SCH (05:14)
[2016-08-08 08:00] VITALS: BP 106/62
[2016-08-08] MEDS: OCUSOFT LID SCRUB TP SCH ×2 (09:41→17:47)
[2016-08-08] MEDS: MULTI-DELYN GT SCH (09:41)
[2016-08-08] MEDS: ZINC OXIDE 56.7 GM TUBE TP SCH ×2 (09:41→20:08)
[2016-08-08] MEDS: PROSOURCE / PROSTAT (PYXIS) 30 ML UDC GT SCH (09:41)
[2016-08-08] MEDS: CHLORHEXIDINE GLUCONATE 15 ML UDC MM SCH ×2 (09:41→17:47)
[2016-08-08] MEDS: Z GUARD REMEDY 4 OZ OINT TP SCH ×2 (09:41→20:08)
[2016-08-08] MEDS: HYDROGEN PEROXIDE 480 ML BOTTLE TP SCH ×2 (09:41→20:08)
[2016-08-08] MEDS: ASCORBIC ACID 500 MG TABLET GT SCH (09:41)
[2016-08-08] MEDS: SERTRALINE HCL 25 MG TABLET GT SCH (09:41)
--- NOTE | 2016-08-08 15:34 | NUR ---
Resident noted with skin tear in the L arm with treatment initiated. Skin tear was observed to been caused by patient hitting the siderails when he refuses care.
[2016-08-09] MEDS: FIBERSOURCE HN 1,000 ML BOTTLE GT PRN (00:32)
[2016-08-09] MEDS: SUCRALFATE 1 G/10 ML UDC GT SCH ×6 (01:12→20:15)
[2016-08-09] MEDS: IPRATROPIUM NEB FS 0.5 MG/2.5 ML AMPUL.NEB IH SCH ×4 (02:02→19:33)
[2016-08-09] MEDS: ALBUTEROL FS 2.5 MG/0.5 ML VIAL.NEB NEB SCH ×4 (02:03→19:33)
[2016-08-09] MEDS: OMEPRAZOLE 20 MG CAPSULE.DR GT SCH (05:16)
[2016-08-09] MEDS: POLYVINYL ALCOHOL 15 ML BOTTLE EACHEYE SCH ×3 (05:16→20:15)
[2016-08-09] MEDS: SIMETHICONE SUSP 40 MG/0.6 ML BOTTLE GT PRN (05:16)
[2016-08-09 08:35] VITALS: BP 102/63
[2016-08-09] MEDS: MVI/MINERALS LIQUID (CEROVITE) GT SCH (09:48)
[2016-08-09] MEDS: ASCORBIC ACID 500 MG TABLET GT SCH (09:48)
[2016-08-09] MEDS: PROSOURCE / PROSTAT (PYXIS) 30 ML UDC GT SCH (09:48)
[2016-08-09] MEDS: Z GUARD REMEDY 4 OZ OINT TP SCH ×2 (09:49→20:16)
[2016-08-09] MEDS: ZINC OXIDE 56.7 GM TUBE TP SCH ×2 (09:49→20:16)
[2016-08-09] MEDS: SERTRALINE HCL 25 MG TABLET GT SCH (09:49)
[2016-08-09] MEDS: OCUSOFT LID SCRUB TP SCH ×2 (09:49→17:53)
[2016-08-09] MEDS: CHLORHEXIDINE GLUCONATE 15 ML UDC MM SCH ×2 (09:49→17:53)
[2016-08-09] MEDS: HYDROGEN PEROXIDE 480 ML BOTTLE TP SCH ×2 (09:49→20:16)
--- NOTE | 2016-08-09 19:25 | NUR ---
RESIDENT NOTED WITH SKIN SCRATCHES TO RIGHT UPPER ARM, WITH SCANT BLEEDING NOTED, INITIATED TX, AND FINGER NAILS CARE RENDERED . ALSO RESIDENT NOTED WITH EPISODE OF HITTING STAFF UPON RENDERING CARE, STRONGLY REFUSES SUCTIONING DESPITE OBVIOUS SECRETIONS FROM MOUTH AND TRACH NOTED, EXPLAINED TO PATIENT RISKS OF REFUSING SUCTION AND BENEFITS OF CARE, PT IS ALERT UNABLE TO RESPOND VERBALLY D/T PRESENCE OF TRACH AND VENT, BUT ABLE TO EXPRESS HIMSELF THROUGH GESTURES, STILL HITTING STAFFS WHEN ATTEMPTING TO SUCTION PT, 2 STAFF NEEDED AND PROVIDED FOR PT'S CARE . CONTINUE TO MONITOR PT.
[2016-08-09 19:45] VITALS: BP 106/63
[2016-08-10] MEDS: SUCRALFATE 1 G/10 ML UDC GT SCH ×6 (01:07→20:42)
[2016-08-10] MEDS: ALBUTEROL FS 2.5 MG/0.5 ML VIAL.NEB NEB SCH ×4 (01:44→19:50)
[2016-08-10] MEDS: IPRATROPIUM NEB FS 0.5 MG/2.5 ML AMPUL.NEB IH SCH ×4 (01:44→19:50)
[2016-08-10] MEDS: SIMETHICONE SUSP 40 MG/0.6 ML BOTTLE GT PRN (05:17)
[2016-08-10] MEDS: OMEPRAZOLE 20 MG CAPSULE.DR GT SCH (05:17)
[2016-08-10] MEDS: POLYVINYL ALCOHOL 15 ML BOTTLE EACHEYE SCH ×3 (05:17→20:42)
[2016-08-10 08:00] VITALS: BP 109/54
[2016-08-10] MEDS: HYDROGEN PEROXIDE 480 ML BOTTLE TP SCH ×2 (09:00→20:42)
[2016-08-10] MEDS: Z GUARD REMEDY 4 OZ OINT TP SCH ×2 (09:00→20:42)
[2016-08-10] MEDS: ZINC OXIDE 56.7 GM TUBE TP SCH ×2 (09:00→20:42)
[2016-08-10] MEDS: ASCORBIC ACID 500 MG TABLET GT SCH (09:00)
[2016-08-10] MEDS: MVI/MINERALS LIQUID (CEROVITE) GT SCH (09:00)
[2016-08-10] MEDS: SERTRALINE HCL 25 MG TABLET GT SCH (09:00)
[2016-08-10] MEDS: OCUSOFT LID SCRUB TP SCH ×2 (09:00→16:54)
[2016-08-10] MEDS: PROSOURCE / PROSTAT (PYXIS) 30 ML UDC GT SCH (09:00)
[2016-08-10] MEDS: CHLORHEXIDINE GLUCONATE 15 ML UDC MM SCH ×2 (09:00→16:54)
[2016-08-10] MEDS: NEOMY SULF/BACITRAC ZN/POLY 15 GM TUBE TP SCH (09:00)
[2016-08-10 20:00] VITALS: BP 110/66
[2016-08-11] MEDS: SUCRALFATE 1 G/10 ML UDC GT SCH ×6 (00:40→20:45)
[2016-08-11] MEDS: FIBERSOURCE HN 1,000 ML BOTTLE GT PRN (00:40)
[2016-08-11] MEDS: IPRATROPIUM NEB FS 0.5 MG/2.5 ML AMPUL.NEB IH SCH ×4 (00:58→19:31)
[2016-08-11] MEDS: ALBUTEROL FS 2.5 MG/0.5 ML VIAL.NEB NEB SCH ×4 (00:58→19:31)
[2016-08-11] MEDS: POLYVINYL ALCOHOL 15 ML BOTTLE EACHEYE SCH ×3 (05:17→20:45)
[2016-08-11] MEDS: OMEPRAZOLE 20 MG CAPSULE.DR GT SCH (05:17)
--- NOTE | 2016-08-11 07:31 | NUR ---
RT PT RECEIVED TRACHED ON THE VENT WITH NOTED SETTINGS. PT IS AWAKE AND ALERT. VENT ALARMS ARE SET AND AUDIBLE WITH BVM BY BEDSIDE. LAB SCIENTIST CUFF PRESSURE NOTED. VENT IS PLUGGED INTO RED OUTLET. SX MODERATE THICK SECRETIONS. NO RESPIRATORY DISTRESS NOTED AT THIS TIME, WILL CONTINUE TO MONITOR. Addendum: 08/11/16 at 1007 by MADAN BROWN RT Amended: Links added.
[2016-08-11 08:00] VITALS: BP 105/60
[2016-08-11] MEDS: ASCORBIC ACID 500 MG TABLET GT SCH (09:36)
[2016-08-11] MEDS: CHLORHEXIDINE GLUCONATE 15 ML UDC MM SCH ×2 (09:36→17:25)
[2016-08-11] MEDS: OCUSOFT LID SCRUB TP SCH ×2 (09:36→17:25)
[2016-08-11] MEDS: SERTRALINE HCL 25 MG TABLET GT SCH (09:36)
[2016-08-11] MEDS: PROSOURCE / PROSTAT (PYXIS) 30 ML UDC GT SCH (09:36)
[2016-08-11] MEDS: MVI/MINERALS LIQUID (CEROVITE) GT SCH (09:36)
[2016-08-11] MEDS: HYDROGEN PEROXIDE 480 ML BOTTLE TP SCH ×2 (09:36→20:45)
[2016-08-11] MEDS: ZINC OXIDE 56.7 GM TUBE TP SCH ×2 (09:37→20:45)
[2016-08-11] MEDS: Z GUARD REMEDY 4 OZ OINT TP SCH ×2 (09:37→20:45)
[2016-08-11 19:51] VITALS: BP 104/67
[2016-08-12] MEDS: SUCRALFATE 1 G/10 ML UDC GT SCH ×6 (00:46→20:40)
[2016-08-12] MEDS: ALBUTEROL FS 2.5 MG/0.5 ML VIAL.NEB NEB SCH ×4 (01:39→19:36)
[2016-08-12] MEDS: IPRATROPIUM NEB FS 0.5 MG/2.5 ML AMPUL.NEB IH SCH ×4 (01:39→19:36)
[2016-08-12] MEDS: POLYVINYL ALCOHOL 15 ML BOTTLE EACHEYE SCH ×3 (05:10→20:40)
[2016-08-12] MEDS: OMEPRAZOLE 20 MG CAPSULE.DR GT SCH (05:10)
[2016-08-12 08:00] VITALS: BP 117/62
[2016-08-12] MEDS: MVI/MINERALS LIQUID (CEROVITE) GT SCH (09:31)
[2016-08-12] MEDS: CHLORHEXIDINE GLUCONATE 15 ML UDC MM SCH ×2 (09:32→17:00)
[2016-08-12] MEDS: ZINC OXIDE 56.7 GM TUBE TP SCH ×2 (09:32→20:40)
[2016-08-12] MEDS: ASCORBIC ACID 500 MG TABLET GT SCH (09:32)
[2016-08-12] MEDS: HYDROGEN PEROXIDE 480 ML BOTTLE TP SCH ×2 (09:32→20:40)
[2016-08-12] MEDS: OCUSOFT LID SCRUB TP SCH ×2 (09:32→17:00)
[2016-08-12] MEDS: Z GUARD REMEDY 4 OZ OINT TP SCH ×2 (09:32→20:40)
[2016-08-12] MEDS: PROSOURCE / PROSTAT (PYXIS) 30 ML UDC GT SCH (09:32)
[2016-08-12] MEDS: SERTRALINE HCL 25 MG TABLET GT SCH (09:33)
[2016-08-12 19:49] VITALS: BP 110/67
[2016-08-12] MEDS: FIBERSOURCE HN 1,000 ML BOTTLE GT PRN (23:28)
[2016-08-13] MEDS: ALBUTEROL FS 2.5 MG/0.5 ML VIAL.NEB NEB SCH ×4 (01:02→20:54)
[2016-08-13] MEDS: IPRATROPIUM NEB FS 0.5 MG/2.5 ML AMPUL.NEB IH SCH ×4 (01:02→20:54)
[2016-08-13] MEDS: SUCRALFATE 1 G/10 ML UDC GT SCH ×6 (01:10→20:36)
[2016-08-13] MEDS: OMEPRAZOLE 20 MG CAPSULE.DR GT SCH (05:20)
[2016-08-13] MEDS: POLYVINYL ALCOHOL 15 ML BOTTLE EACHEYE SCH ×3 (05:20→20:36)
[2016-08-13 08:07] VITALS: BP 107/56
[2016-08-13] MEDS: CHLORHEXIDINE GLUCONATE 15 ML UDC MM SCH ×2 (09:20→17:55)
[2016-08-13] MEDS: ZINC OXIDE 56.7 GM TUBE TP SCH ×2 (09:20→20:36)
[2016-08-13] MEDS: Z GUARD REMEDY 4 OZ OINT TP SCH ×2 (09:20→20:36)
[2016-08-13] MEDS: ASCORBIC ACID 500 MG TABLET GT SCH (09:20)
[2016-08-13] MEDS: HYDROGEN PEROXIDE 480 ML BOTTLE TP SCH ×2 (09:20→20:36)
[2016-08-13] MEDS: SERTRALINE HCL 25 MG TABLET GT SCH (09:20)
[2016-08-13] MEDS: MVI/MINERALS LIQUID (CEROVITE) GT SCH (09:20)
[2016-08-13] MEDS: OCUSOFT LID SCRUB TP SCH ×2 (09:20→17:56)
[2016-08-13] MEDS: PROSOURCE / PROSTAT (PYXIS) 30 ML UDC GT SCH (09:20)
[2016-08-13] MEDS: NEOMY SULF/BACITRAC ZN/POLY 15 GM TUBE TP SCH (09:20)
[2016-08-13 20:00] VITALS: BP 114/65
[2016-08-13] MEDS: TEMAZEPAM 7.5 MG CAPSULE GT PRN (23:00)
[2016-08-14] MEDS: SUCRALFATE 1 G/10 ML UDC GT SCH ×6 (01:20→21:08)
[2016-08-14] MEDS: IPRATROPIUM NEB FS 0.5 MG/2.5 ML AMPUL.NEB IH SCH ×4 (01:34→20:00)
[2016-08-14] MEDS: ALBUTEROL FS 2.5 MG/0.5 ML VIAL.NEB NEB SCH ×4 (01:34→20:00)
[2016-08-14] MEDS: POLYVINYL ALCOHOL 15 ML BOTTLE EACHEYE SCH ×3 (05:21→21:08)
[2016-08-14] MEDS: OMEPRAZOLE 20 MG CAPSULE.DR GT SCH (05:21)
[2016-08-14] MEDS: FIBERSOURCE HN 1,000 ML BOTTLE GT PRN ×2 (05:25→21:36)
[2016-08-14 07:36] VITALS: BP 134/64
[2016-08-14] MEDS: CHLORHEXIDINE GLUCONATE 15 ML UDC MM SCH ×2 (08:41→17:49)
[2016-08-14] MEDS: PROSOURCE / PROSTAT (PYXIS) 30 ML UDC GT SCH (08:41)
[2016-08-14] MEDS: SERTRALINE HCL 25 MG TABLET GT SCH (08:41)
[2016-08-14] MEDS: MVI/MINERALS LIQUID (CEROVITE) GT SCH (08:41)
[2016-08-14] MEDS: ASCORBIC ACID 500 MG TABLET GT SCH (08:41)
[2016-08-14] MEDS: OCUSOFT LID SCRUB TP SCH ×2 (08:42→17:50)
[2016-08-14] MEDS: ZINC OXIDE 56.7 GM TUBE TP SCH (08:44)
[2016-08-14] MEDS: Z GUARD REMEDY 4 OZ OINT TP SCH ×2 (08:44→21:08)
[2016-08-14] MEDS: HYDROGEN PEROXIDE 480 ML BOTTLE TP SCH ×2 (08:44→21:08)
[2016-08-14 20:26] VITALS: BP 108/55
[2016-08-15] MEDS: SUCRALFATE 1 G/10 ML UDC GT SCH ×6 (00:18→20:31)
[2016-08-15] MEDS: IPRATROPIUM NEB FS 0.5 MG/2.5 ML AMPUL.NEB IH SCH ×4 (01:45→20:19)
[2016-08-15] MEDS: ALBUTEROL FS 2.5 MG/0.5 ML VIAL.NEB NEB SCH ×4 (01:45→20:19)
[2016-08-15] MEDS: OMEPRAZOLE 20 MG CAPSULE.DR GT SCH (05:57)
[2016-08-15] MEDS: POLYVINYL ALCOHOL 15 ML BOTTLE EACHEYE SCH ×3 (05:57→20:31)
[2016-08-15 07:52] VITALS: BP 118/70
[2016-08-15] MEDS: CHLORHEXIDINE GLUCONATE 15 ML UDC MM SCH ×2 (09:00→17:00)
[2016-08-15] MEDS: OCUSOFT LID SCRUB TP SCH ×2 (09:00→17:00)
[2016-08-15] MEDS: ASCORBIC ACID 500 MG TABLET GT SCH (09:12)
[2016-08-15] MEDS: SERTRALINE HCL 25 MG TABLET GT SCH (09:12)
[2016-08-15] MEDS: Z GUARD REMEDY 4 OZ OINT TP SCH ×2 (09:12→20:31)
[2016-08-15] MEDS: MVI/MINERALS LIQUID (CEROVITE) GT SCH (09:12)
[2016-08-15] MEDS: PROSOURCE / PROSTAT (PYXIS) 30 ML UDC GT SCH (09:12)
[2016-08-15] MEDS: HYDROGEN PEROXIDE 480 ML BOTTLE TP SCH ×2 (09:12→20:31)
[2016-08-15] MEDS: FIBERSOURCE HN 1,000 ML BOTTLE GT PRN (13:11)
[2016-08-15 19:36] VITALS: BP 123/73
[2016-08-15] MEDS: ZINC OXIDE 30 GM TUBE TP SCH (20:31)
[2016-08-16] MEDS: SUCRALFATE 1 G/10 ML UDC GT SCH ×6 (00:57→21:17)
[2016-08-16] MEDS: IPRATROPIUM NEB FS 0.5 MG/2.5 ML AMPUL.NEB IH SCH ×4 (01:56→19:43)
[2016-08-16] MEDS: ALBUTEROL FS 2.5 MG/0.5 ML VIAL.NEB NEB SCH ×4 (01:56→19:43)
[2016-08-16] MEDS: FIBERSOURCE HN 1,000 ML BOTTLE GT PRN ×2 (05:07→21:18)
[2016-08-16] MEDS: OMEPRAZOLE 20 MG CAPSULE.DR GT SCH (05:07)
[2016-08-16] MEDS: POLYVINYL ALCOHOL 15 ML BOTTLE EACHEYE SCH ×3 (05:07→21:17)
[2016-08-16 08:00] VITALS: BP 116/57
[2016-08-16] MEDS: MVI/MINERALS LIQUID (CEROVITE) GT SCH (08:39)
[2016-08-16] MEDS: ASCORBIC ACID 500 MG TABLET GT SCH (08:41)
[2016-08-16] MEDS: SERTRALINE HCL 25 MG TABLET GT SCH (08:41)
[2016-08-16] MEDS: PROSOURCE / PROSTAT (PYXIS) 30 ML UDC GT SCH (08:41)
[2016-08-16] MEDS: NEOMY SULF/BACITRAC ZN/POLY 15 GM TUBE TP SCH (08:42)
[2016-08-16] MEDS: HYDROGEN PEROXIDE 480 ML BOTTLE TP SCH ×2 (08:42→21:17)
[2016-08-16] MEDS: CHLORHEXIDINE GLUCONATE 15 ML UDC MM SCH ×2 (08:42→17:00)
[2016-08-16] MEDS: OCUSOFT LID SCRUB TP SCH ×2 (08:42→17:00)
[2016-08-16] MEDS: Z GUARD REMEDY 4 OZ OINT TP SCH ×2 (08:42→21:18)
[2016-08-16] MEDS: ZINC OXIDE 30 GM TUBE TP SCH ×2 (08:43→21:18)
--- NOTE | 2016-08-16 19:30 | NUR ---
pain management nurse notes: Small blood thinge tracheal secretions noted. no s/s of respiratory distress or discomfort. lavaged and suctioned rendered. pt tolerated well. will monitor closely.
[2016-08-16 20:09] VITALS: BP 111/73
[2016-08-17] MEDS: SUCRALFATE 1 G/10 ML UDC GT SCH ×6 (00:38→20:25)
[2016-08-17] MEDS: TEMAZEPAM 7.5 MG CAPSULE GT PRN (00:38)
[2016-08-17] MEDS: IPRATROPIUM NEB FS 0.5 MG/2.5 ML AMPUL.NEB IH SCH ×4 (01:22→20:18)
[2016-08-17] MEDS: ALBUTEROL FS 2.5 MG/0.5 ML VIAL.NEB NEB SCH ×4 (01:22→20:18)
[2016-08-17] MEDS: POLYVINYL ALCOHOL 15 ML BOTTLE EACHEYE SCH ×3 (05:06→20:25)
[2016-08-17] MEDS: OMEPRAZOLE 20 MG CAPSULE.DR GT SCH (05:07)
[2016-08-17] MEDS: MVI/MINERALS LIQUID (CEROVITE) GT SCH (08:49)
[2016-08-17] MEDS: SERTRALINE HCL 25 MG TABLET GT SCH (08:50)
[2016-08-17] MEDS: ASCORBIC ACID 500 MG TABLET GT SCH (08:50)
[2016-08-17] MEDS: Z GUARD REMEDY 4 OZ OINT TP SCH ×2 (08:51→20:25)
[2016-08-17] MEDS: HYDROGEN PEROXIDE 480 ML BOTTLE TP SCH ×2 (08:51→20:25)
[2016-08-17] MEDS: ZINC OXIDE 30 GM TUBE TP SCH ×2 (08:52→20:25)
[2016-08-17] MEDS: PROSOURCE / PROSTAT (PYXIS) 30 ML UDC GT SCH (08:53)
[2016-08-17] MEDS: OCUSOFT LID SCRUB TP SCH ×2 (08:57→17:00)
[2016-08-17] MEDS: CHLORHEXIDINE GLUCONATE 15 ML UDC MM SCH ×2 (08:58→17:00)
[2016-08-17] MEDS: FIBERSOURCE HN 1,000 ML BOTTLE GT PRN (15:52)
[2016-08-17 19:59] VITALS: BP 131/72
--- NOTE | 2016-08-17 20:00 | NUR ---
RN NOTES Noted pt with blood tinged secretions. Suctioned to maintain airway clearance. No respiratory distress or SOB noted. Will continue to monitor closely.
[2016-08-18] MEDS: SUCRALFATE 1 G/10 ML UDC GT SCH ×6 (01:00→20:20)
[2016-08-18] MEDS: IPRATROPIUM NEB FS 0.5 MG/2.5 ML AMPUL.NEB IH SCH ×4 (01:37→20:12)
[2016-08-18] MEDS: ALBUTEROL FS 2.5 MG/0.5 ML VIAL.NEB NEB SCH ×4 (01:37→20:12)
[2016-08-18] MEDS: POLYVINYL ALCOHOL 15 ML BOTTLE EACHEYE SCH ×3 (05:34→20:18)
[2016-08-18] MEDS: OMEPRAZOLE 20 MG CAPSULE.DR GT SCH (05:35)
--- NOTE | 2016-08-18 06:12 | NUR ---
RN NOTES Pt noted with minimal amount of lightly blood tinged secretions. Will continue to monitor.
[2016-08-18 08:03] VITALS: BP 111/57
[2016-08-18] MEDS: MVI/MINERALS LIQUID (CEROVITE) GT SCH (09:40)
[2016-08-18] MEDS: ASCORBIC ACID 500 MG TABLET GT SCH (09:40)
[2016-08-18] MEDS: SERTRALINE HCL 25 MG TABLET GT SCH (09:40)
[2016-08-18] MEDS: CHLORHEXIDINE GLUCONATE 15 ML UDC MM SCH ×2 (09:40→16:41)
[2016-08-18] MEDS: PROSOURCE / PROSTAT (PYXIS) 30 ML UDC GT SCH (09:40)
[2016-08-18] MEDS: ZINC OXIDE 30 GM TUBE TP SCH ×2 (09:41→20:20)
[2016-08-18] MEDS: HYDROGEN PEROXIDE 480 ML BOTTLE TP SCH ×2 (09:41→20:20)
[2016-08-18] MEDS: Z GUARD REMEDY 4 OZ OINT TP SCH ×2 (09:41→20:20)
[2016-08-18] MEDS: OCUSOFT LID SCRUB TP SCH ×2 (09:41→16:41)
[2016-08-18 19:58] VITALS: BP 129/69
--- NOTE | 2016-08-18 20:00 | NUR ---
RN NOTES Pt noted with moderate amount of blood tinged secretions with small blood clots/plugs. Suctioned well to maintain airway clearance. No SOB or respiratory distress. Will continue to monitor closely.
[2016-08-19] MEDS: SUCRALFATE 1 G/10 ML UDC GT SCH ×6 (01:00→20:19)
[2016-08-19] MEDS: ALBUTEROL FS 2.5 MG/0.5 ML VIAL.NEB NEB SCH ×4 (02:17→19:35)
[2016-08-19] MEDS: IPRATROPIUM NEB FS 0.5 MG/2.5 ML AMPUL.NEB IH SCH ×4 (02:17→19:36)
[2016-08-19] MEDS: POLYVINYL ALCOHOL 15 ML BOTTLE EACHEYE SCH ×3 (05:10→20:19)
[2016-08-19] MEDS: OMEPRAZOLE 20 MG CAPSULE.DR GT SCH (05:11)
--- NOTE | 2016-08-19 06:00 | NUR ---
RN NOTES Pt continues with moderate amount of blood tinged secretions with small blood clots/plugs. Suctioned well to maintain airway clearance. No SOB or resp distress. Will continue to monitor.
--- NOTE | 2016-08-19 07:51 | NUR ---
Received male awake and alert trach pt on mechanical vent. Pt trach is secure. Vent is plugged into a red outlet, alarms are set and audible. BVM is at bedside. Suctioned moderate amount of bloody secretions with mucus plugs. RN and EQUITY SALES ASSISTANT aware. RN will notify MD. Addendum: 08/19/16 at 0755 by KAYLIN GRANADOS RT Amended: Links added.
[2016-08-19 08:19] VITALS: BP 115/67
[2016-08-19] MEDS: NEOMY SULF/BACITRAC ZN/POLY 15 GM TUBE TP SCH (09:23)
[2016-08-19] MEDS: CHLORHEXIDINE GLUCONATE 15 ML UDC MM SCH ×2 (09:23→16:57)
[2016-08-19] MEDS: SERTRALINE HCL 25 MG TABLET GT SCH (09:23)
[2016-08-19] MEDS: MVI/MINERALS LIQUID (CEROVITE) GT SCH (09:23)
[2016-08-19] MEDS: HYDROGEN PEROXIDE 480 ML BOTTLE TP SCH ×2 (09:23→20:19)
[2016-08-19] MEDS: OCUSOFT LID SCRUB TP SCH ×2 (09:23→16:57)
[2016-08-19] MEDS: ZINC OXIDE 30 GM TUBE TP SCH ×2 (09:23→20:19)
[2016-08-19] MEDS: PROSOURCE / PROSTAT (PYXIS) 30 ML UDC GT SCH (09:23)
[2016-08-19] MEDS: ASCORBIC ACID 500 MG TABLET GT SCH (09:23)
[2016-08-19] MEDS: Z GUARD REMEDY 4 OZ OINT TP SCH ×2 (09:23→20:19)
[2016-08-19 19:41] VITALS: BP 109/70
[2016-08-20] MEDS: SUCRALFATE 1 G/10 ML UDC GT SCH ×6 (00:15→20:52)
[2016-08-20] MEDS: ALBUTEROL FS 2.5 MG/0.5 ML VIAL.NEB NEB SCH ×4 (01:38→20:06)
[2016-08-20] MEDS: IPRATROPIUM NEB FS 0.5 MG/2.5 ML AMPUL.NEB IH SCH ×4 (01:38→20:06)
[2016-08-20] MEDS: POLYVINYL ALCOHOL 15 ML BOTTLE EACHEYE SCH ×3 (05:17→20:52)
[2016-08-20] MEDS: OMEPRAZOLE 20 MG CAPSULE.DR GT SCH (05:17)
[2016-08-20 08:02] VITALS: BP 111/61
[2016-08-20] MEDS: ASCORBIC ACID 500 MG TABLET GT SCH (08:44)
[2016-08-20] MEDS: MVI/MINERALS LIQUID (CEROVITE) GT SCH (08:44)
[2016-08-20] MEDS: SERTRALINE HCL 25 MG TABLET GT SCH (08:44)
[2016-08-20] MEDS: PROSOURCE / PROSTAT (PYXIS) 30 ML UDC GT SCH (08:44)
[2016-08-20] MEDS: OCUSOFT LID SCRUB TP SCH ×2 (08:45→17:00)
[2016-08-20] MEDS: Z GUARD REMEDY 4 OZ OINT TP SCH ×2 (08:45→20:52)
[2016-08-20] MEDS: HYDROGEN PEROXIDE 480 ML BOTTLE TP SCH ×2 (08:45→20:52)
[2016-08-20] MEDS: ZINC OXIDE 30 GM TUBE TP SCH ×2 (08:45→20:53)
[2016-08-20] MEDS: CHLORHEXIDINE GLUCONATE 15 ML UDC MM SCH ×2 (08:45→17:02)
[2016-08-20] MEDS: FIBERSOURCE HN 1,000 ML BOTTLE GT PRN (11:19)
[2016-08-20 19:37] VITALS: BP 107/57
[2016-08-21] MEDS: SUCRALFATE 1 G/10 ML UDC GT SCH ×6 (00:19→21:13)
[2016-08-21] MEDS: TEMAZEPAM 7.5 MG CAPSULE GT PRN (00:45)
[2016-08-21] MEDS: FIBERSOURCE HN 1,000 ML BOTTLE GT PRN ×2 (00:55→18:19)
[2016-08-21] MEDS: ALBUTEROL FS 2.5 MG/0.5 ML VIAL.NEB NEB SCH ×4 (01:53→19:46)
[2016-08-21] MEDS: IPRATROPIUM NEB FS 0.5 MG/2.5 ML AMPUL.NEB IH SCH ×4 (01:53→19:46)
[2016-08-21] MEDS: POLYVINYL ALCOHOL 15 ML BOTTLE EACHEYE SCH ×3 (05:00→21:13)
[2016-08-21] MEDS: OMEPRAZOLE 20 MG CAPSULE.DR GT SCH (06:08)
[2016-08-21 07:27] VITALS: BP 111/70
[2016-08-21] MEDS: MVI/MINERALS LIQUID (CEROVITE) GT SCH (08:31)
[2016-08-21] MEDS: ASCORBIC ACID 500 MG TABLET GT SCH (08:32)
[2016-08-21] MEDS: SERTRALINE HCL 25 MG TABLET GT SCH (08:32)
[2016-08-21] MEDS: PROSOURCE / PROSTAT (PYXIS) 30 ML UDC GT SCH (08:32)
[2016-08-21] MEDS: ZINC OXIDE 30 GM TUBE TP SCH ×2 (08:33→21:13)
[2016-08-21] MEDS: Z GUARD REMEDY 4 OZ OINT TP SCH ×2 (08:33→21:13)
[2016-08-21] MEDS: HYDROGEN PEROXIDE 480 ML BOTTLE TP SCH ×2 (08:33→21:13)
[2016-08-21] MEDS: OCUSOFT LID SCRUB TP SCH ×2 (08:38→16:31)
[2016-08-21] MEDS: CHLORHEXIDINE GLUCONATE 15 ML UDC MM SCH ×2 (08:39→16:31)
[2016-08-21 20:02] VITALS: BP 113/76
[2016-08-22] MEDS: SUCRALFATE 1 G/10 ML UDC GT SCH ×6 (00:31→21:26)
[2016-08-22] MEDS: ALBUTEROL FS 2.5 MG/0.5 ML VIAL.NEB NEB SCH ×4 (01:34→20:19)
[2016-08-22] MEDS: IPRATROPIUM NEB FS 0.5 MG/2.5 ML AMPUL.NEB IH SCH ×4 (01:34→20:19)
[2016-08-22] MEDS: POLYVINYL ALCOHOL 15 ML BOTTLE EACHEYE SCH ×3 (05:00→21:26)
[2016-08-22] MEDS: OMEPRAZOLE 20 MG CAPSULE.DR GT SCH (06:09)
--- NOTE | 2016-08-22 06:23 | NUR ---
Patient bloody secretions,cool lavaged with saline,no respiratory distress noted.Will continue to monitor.
[2016-08-22] MEDS: MVI/MINERALS LIQUID (CEROVITE) GT SCH (08:27)
[2016-08-22] MEDS: SERTRALINE HCL 25 MG TABLET GT SCH (08:29)
[2016-08-22] MEDS: NEOMY SULF/BACITRAC ZN/POLY 15 GM TUBE TP SCH (08:29)
[2016-08-22] MEDS: Z GUARD REMEDY 4 OZ OINT TP SCH ×2 (08:29→21:26)
[2016-08-22] MEDS: ASCORBIC ACID 500 MG TABLET GT SCH (08:29)
[2016-08-22] MEDS: HYDROGEN PEROXIDE 480 ML BOTTLE TP SCH ×2 (08:29→21:26)
[2016-08-22] MEDS: CHLORHEXIDINE GLUCONATE 15 ML UDC MM SCH ×2 (08:29→17:06)
[2016-08-22] MEDS: ZINC OXIDE 30 GM TUBE TP SCH ×2 (08:30→21:26)
[2016-08-22] MEDS: OCUSOFT LID SCRUB TP SCH ×3 (08:30→17:00)
[2016-08-22] MEDS: PROSOURCE / PROSTAT (PYXIS) 30 ML UDC GT SCH (08:31)
[2016-08-22] MEDS: FIBERSOURCE HN 1,000 ML BOTTLE GT PRN (12:38)
[2016-08-22 19:59] VITALS: BP 117/67
[2016-08-22] MEDS: TEMAZEPAM 7.5 MG CAPSULE GT PRN (23:30)
[2016-08-23] MEDS: SUCRALFATE 1 G/10 ML UDC GT SCH ×6 (01:31→21:28)
[2016-08-23] MEDS: ALBUTEROL FS 2.5 MG/0.5 ML VIAL.NEB NEB SCH ×4 (01:41→19:52)
[2016-08-23] MEDS: IPRATROPIUM NEB FS 0.5 MG/2.5 ML AMPUL.NEB IH SCH ×4 (01:41→19:52)
[2016-08-23] MEDS: OMEPRAZOLE 20 MG CAPSULE.DR GT SCH (05:54)
[2016-08-23] MEDS: POLYVINYL ALCOHOL 15 ML BOTTLE EACHEYE SCH ×3 (05:54→21:28)
[2016-08-23] MEDS: FIBERSOURCE HN 1,000 ML BOTTLE GT PRN ×2 (05:55→21:29)
[2016-08-23 07:34] VITALS: BP 105/67
[2016-08-23] MEDS: ASCORBIC ACID 500 MG TABLET GT SCH (08:45)
[2016-08-23] MEDS: MVI/MINERALS LIQUID (CEROVITE) GT SCH (08:45)
[2016-08-23] MEDS: PROSOURCE / PROSTAT (PYXIS) 30 ML UDC GT SCH (08:45)
[2016-08-23] MEDS: SERTRALINE HCL 25 MG TABLET GT SCH (08:46)
[2016-08-23] MEDS: CHLORHEXIDINE GLUCONATE 15 ML UDC MM SCH ×2 (08:46→16:51)
[2016-08-23] MEDS: ZINC OXIDE 30 GM TUBE TP SCH (08:47)
[2016-08-23] MEDS: OCUSOFT LID SCRUB TP SCH ×2 (09:00→16:51)
[2016-08-23] MEDS: HYDROGEN PEROXIDE 480 ML BOTTLE TP SCH ×2 (09:00→21:28)
[2016-08-23] MEDS: Z GUARD REMEDY 4 OZ OINT TP SCH ×2 (09:00→21:29)
--- NOTE | 2016-08-23 13:02 | NUR ---
Seen and examined by Dr. Vance, made aware that patient still having bloody secretions from during tracheal suctioning iced lavage done. Patient also complaining of abdominal pain. MD assessed abdominal area, noted GT stoma red. New order given for topical ATB and GI consult with Dr. Ferrara to evaluate for possible cellulitis of the GT site. Left a message to Dr. Ferrara regarding consult. Endorsed to follow-up.
[2016-08-23 20:01] VITALS: BP 113/69
[2016-08-23] MEDS: MINERAL OIL/PETROLATUM,WHITE 454 GM JAR TP SCH (21:28)
[2016-08-23] MEDS: BACI/NEOM/POLY B OINT PKT 1 UDPKT PACKET TP SCH (21:29)
[2016-08-24] MEDS: SUCRALFATE 1 G/10 ML UDC GT SCH ×6 (00:24→20:57)
[2016-08-24] MEDS: ALBUTEROL FS 2.5 MG/0.5 ML VIAL.NEB NEB SCH ×4 (01:20→20:10)
[2016-08-24] MEDS: IPRATROPIUM NEB FS 0.5 MG/2.5 ML AMPUL.NEB IH SCH ×4 (01:20→20:10)
[2016-08-24] MEDS: POLYVINYL ALCOHOL 15 ML BOTTLE EACHEYE SCH ×3 (05:34→20:57)
[2016-08-24] MEDS: OMEPRAZOLE 20 MG CAPSULE.DR GT SCH (05:34)
[2016-08-24 07:50] VITALS: BP 127/82
[2016-08-24] MEDS: MINERAL OIL/PETROLATUM,WHITE 454 GM JAR TP SCH ×2 (09:00→20:57)
[2016-08-24] MEDS: CHLORHEXIDINE GLUCONATE 15 ML UDC MM SCH ×2 (09:00→17:32)
[2016-08-24] MEDS: OCUSOFT LID SCRUB TP SCH ×2 (09:00→17:00)
[2016-08-24] MEDS: SERTRALINE HCL 25 MG TABLET GT SCH (09:12)
[2016-08-24] MEDS: ASCORBIC ACID 500 MG TABLET GT SCH (09:12)
[2016-08-24] MEDS: PROSOURCE / PROSTAT (PYXIS) 30 ML UDC GT SCH (09:12)
[2016-08-24] MEDS: MVI/MINERALS LIQUID (CEROVITE) GT SCH (09:12)
[2016-08-24] MEDS: BACI/NEOM/POLY B OINT PKT 1 UDPKT PACKET TP SCH ×2 (09:13→20:58)
[2016-08-24] MEDS: HYDROGEN PEROXIDE 480 ML BOTTLE TP SCH ×2 (09:13→20:58)
[2016-08-24] MEDS: Z GUARD REMEDY 4 OZ OINT TP SCH ×2 (09:13→21:01)
--- NOTE | 2016-08-24 10:06 | NUR ---
Notified Dr. Ferrara of the GI consult for possible cellulitis of GT site. Informed MD that GT came out and reinserted. Dr. Ferrara ordered to do abdominal KUB. Order noted and carried out. Per MD he will come to see patient this afternoon.
[2016-08-24] MEDS ORDERED: DIATR MEGLU/DIATRIZOATE SODIUM 30 ML BOTTLE (GASTROGRAPHIN) ONE (10:07)
[2016-08-24] MEDS: FIBERSOURCE HN 1,000 ML BOTTLE GT PRN (18:21)
[2016-08-24 19:46] VITALS: BP 110/69
[2016-08-25] MEDS: SUCRALFATE 1 G/10 ML UDC GT SCH ×6 (01:01→20:36)
[2016-08-25] MEDS: ALBUTEROL FS 2.5 MG/0.5 ML VIAL.NEB NEB SCH ×4 (01:02→20:11)
[2016-08-25] MEDS: IPRATROPIUM NEB FS 0.5 MG/2.5 ML AMPUL.NEB IH SCH ×4 (01:02→20:11)
[2016-08-25] MEDS: OMEPRAZOLE 20 MG CAPSULE.DR GT SCH (05:20)
[2016-08-25] MEDS: POLYVINYL ALCOHOL 15 ML BOTTLE EACHEYE SCH ×3 (05:20→20:36)
[2016-08-25 07:48] VITALS: BP 124/57
[2016-08-25] MEDS: OCUSOFT LID SCRUB TP SCH ×2 (09:23→17:38)
[2016-08-25] MEDS: SERTRALINE HCL 25 MG TABLET GT SCH (09:23)
[2016-08-25] MEDS: HYDROGEN PEROXIDE 480 ML BOTTLE TP SCH ×2 (09:23→20:36)
[2016-08-25] MEDS: MVI/MINERALS LIQUID (CEROVITE) GT SCH (09:23)
[2016-08-25] MEDS: MINERAL OIL/PETROLATUM,WHITE 454 GM JAR TP SCH ×2 (09:23→20:36)
[2016-08-25] MEDS: Z GUARD REMEDY 4 OZ OINT TP SCH ×2 (09:23→20:37)
[2016-08-25] MEDS: ASCORBIC ACID 500 MG TABLET GT SCH (09:23)
[2016-08-25] MEDS: BACI/NEOM/POLY B OINT PKT 1 UDPKT PACKET TP SCH ×2 (09:23→20:36)
[2016-08-25] MEDS: PROSOURCE / PROSTAT (PYXIS) 30 ML UDC GT SCH (09:23)
[2016-08-25] MEDS: CHLORHEXIDINE GLUCONATE 15 ML UDC MM SCH ×2 (09:23→17:38)
[2016-08-25 19:51] VITALS: BP 98/56
[2016-08-26] MEDS: SUCRALFATE 1 G/10 ML UDC GT SCH ×6 (01:20→20:15)
[2016-08-26] MEDS: IPRATROPIUM NEB FS 0.5 MG/2.5 ML AMPUL.NEB IH SCH ×4 (02:24→19:30)
[2016-08-26] MEDS: ALBUTEROL FS 2.5 MG/0.5 ML VIAL.NEB NEB SCH ×4 (02:24→19:30)
[2016-08-26] MEDS: POLYVINYL ALCOHOL 15 ML BOTTLE EACHEYE SCH ×3 (05:23→20:15)
[2016-08-26] MEDS: OMEPRAZOLE 20 MG CAPSULE.DR GT SCH (05:24)
[2016-08-26 08:17] VITALS: BP 108/55
[2016-08-26] MEDS: OCUSOFT LID SCRUB TP SCH ×2 (09:50→17:22)
[2016-08-26] MEDS: MINERAL OIL/PETROLATUM,WHITE 454 GM JAR TP SCH ×2 (09:50→20:16)
[2016-08-26] MEDS: SERTRALINE HCL 25 MG TABLET GT SCH (09:50)
[2016-08-26] MEDS: MVI/MINERALS LIQUID (CEROVITE) GT SCH (09:50)
[2016-08-26] MEDS: CHLORHEXIDINE GLUCONATE 15 ML UDC MM SCH ×2 (09:50→17:21)
[2016-08-26] MEDS: HYDROGEN PEROXIDE 480 ML BOTTLE TP SCH ×3 (09:50→20:16)
[2016-08-26] MEDS: ASCORBIC ACID 500 MG TABLET GT SCH (09:50)
[2016-08-26] MEDS: PROSOURCE / PROSTAT (PYXIS) 30 ML UDC GT SCH (09:50)
[2016-08-26] MEDS: BACI/NEOM/POLY B OINT PKT 1 UDPKT PACKET TP SCH (09:51)
[2016-08-26] MEDS: Z GUARD REMEDY 4 OZ OINT TP SCH ×2 (09:51→20:16)
--- NOTE | 2016-08-26 11:08 | NUR ---
Reminded Dr. Ferraar to see pt today.
--- NOTE | 2016-08-26 11:33 | NUR ---
Seen by Dr. Ferrara. He said to clean the GT site with hydrogen peroxide and not to place any dressing. He also ordered a G-tube Fr 22 and said he will come back tomorrow or day to replace it. He said he prefers a Bard but if Bard is not available, [employer] is fine. Bard currently not available.
[2016-08-26 19:16] VITALS: BP 109/60
[2016-08-27] MEDS: ALBUTEROL FS 2.5 MG/0.5 ML VIAL.NEB NEB SCH ×4 (00:47→19:43)
[2016-08-27] MEDS: IPRATROPIUM NEB FS 0.5 MG/2.5 ML AMPUL.NEB IH SCH ×4 (00:47→19:43)
[2016-08-27] MEDS: SUCRALFATE 1 G/10 ML UDC GT SCH ×6 (01:00→21:17)
[2016-08-27] MEDS: POLYVINYL ALCOHOL 15 ML BOTTLE EACHEYE SCH ×3 (05:26→21:17)
[2016-08-27] MEDS: OMEPRAZOLE 20 MG CAPSULE.DR GT SCH (05:28)
[2016-08-27 08:00] VITALS: BP 94/59
[2016-08-27] MEDS: SERTRALINE HCL 25 MG TABLET GT SCH (08:57)
[2016-08-27] MEDS: ASCORBIC ACID 500 MG TABLET GT SCH (08:57)
[2016-08-27] MEDS: MVI/MINERALS LIQUID (CEROVITE) GT SCH (08:57)
[2016-08-27] MEDS: CHLORHEXIDINE GLUCONATE 15 ML UDC MM SCH ×2 (08:57→17:00)
[2016-08-27] MEDS: MINERAL OIL/PETROLATUM,WHITE 454 GM JAR TP SCH ×2 (08:57→21:17)
[2016-08-27] MEDS: PROSOURCE / PROSTAT (PYXIS) 30 ML UDC GT SCH (08:57)
[2016-08-27] MEDS: OCUSOFT LID SCRUB TP SCH ×2 (08:58→17:00)
[2016-08-27] MEDS: HYDROGEN PEROXIDE 480 ML BOTTLE TP SCH ×4 (08:58→21:17)
[2016-08-27] MEDS: Z GUARD REMEDY 4 OZ OINT TP SCH ×2 (08:58→21:17)
[2016-08-27] MEDS: FIBERSOURCE HN 1,000 ML BOTTLE GT PRN (15:00)
[2016-08-27 20:00] VITALS: BP 112/68
[2016-08-27] MEDS: TEMAZEPAM 7.5 MG CAPSULE GT PRN (21:18)
[2016-08-28] MEDS: SUCRALFATE 1 G/10 ML UDC GT SCH ×6 (00:54→20:51)
[2016-08-28] MEDS: ALBUTEROL FS 2.5 MG/0.5 ML VIAL.NEB NEB SCH ×4 (00:57→21:16)
[2016-08-28] MEDS: IPRATROPIUM NEB FS 0.5 MG/2.5 ML AMPUL.NEB IH SCH ×4 (00:57→21:16)
[2016-08-28] MEDS: POLYVINYL ALCOHOL 15 ML BOTTLE EACHEYE SCH ×3 (05:13→20:51)
[2016-08-28] MEDS: OMEPRAZOLE 20 MG CAPSULE.DR GT SCH (05:13)
[2016-08-28] MEDS: FIBERSOURCE HN 1,000 ML BOTTLE GT PRN (05:13)
[2016-08-28 07:54] VITALS: BP 101/66
[2016-08-28] MEDS: CLOTRIMAZOLE/BETAMETASONE DIPROPIONATE 15 GM TUBE TP SCH ×2 (09:00→20:55)
[2016-08-28] MEDS: Z GUARD REMEDY 4 OZ OINT TP SCH ×4 (09:00→20:55)
[2016-08-28] MEDS: OCUSOFT LID SCRUB TP SCH ×2 (09:00→17:03)
[2016-08-28] MEDS: CHLORHEXIDINE GLUCONATE 15 ML UDC MM SCH ×2 (09:00→17:03)
[2016-08-28] MEDS: ASCORBIC ACID 500 MG TABLET GT SCH (09:00)
[2016-08-28] MEDS: HYDROGEN PEROXIDE 480 ML BOTTLE TP SCH ×4 (09:00→20:54)
[2016-08-28] MEDS: SERTRALINE HCL 25 MG TABLET GT SCH (09:00)
[2016-08-28] MEDS: MINERAL OIL/PETROLATUM,WHITE 454 GM JAR TP SCH ×2 (09:00→20:51)
[2016-08-28] MEDS: PROSOURCE / PROSTAT (PYXIS) 30 ML UDC GT SCH (09:00)
[2016-08-28] MEDS: MVI/MINERALS LIQUID (CEROVITE) GT SCH (09:00)
--- NOTE | 2016-08-28 13:54 | NUR ---
Social Service [employer] (2nd quarter) completed. Resident is alert but has difficulty communicating. He is able to convey his needs by mouthing words and responding to yes or no questions. His daughter Olivia Olivo is involved but does not visit frequently due to her working schedule. Sister Elizabeth checks in frequently from [place]. She feels that due to resident's current medical condition, he will be a resident of [facility] long-term.
--- NOTE | 2016-08-28 15:00 | NUR ---
Seen by Isidra Ayala NP with no new order.
[2016-08-28 20:25] VITALS: BP 112/68
[2016-08-28] MEDS: TEMAZEPAM 7.5 MG CAPSULE GT PRN (23:53)
[2016-08-29] MEDS: SUCRALFATE 1 G/10 ML UDC GT SCH ×5 (01:05→21:00)
[2016-08-29] MEDS: ALBUTEROL FS 2.5 MG/0.5 ML VIAL.NEB NEB SCH ×4 (02:05→20:02)
[2016-08-29] MEDS: IPRATROPIUM NEB FS 0.5 MG/2.5 ML AMPUL.NEB IH SCH ×4 (02:05→20:02)
[2016-08-29] MEDS: OMEPRAZOLE 20 MG CAPSULE.DR GT SCH (05:12)
[2016-08-29] MEDS: POLYVINYL ALCOHOL 15 ML BOTTLE EACHEYE SCH ×3 (05:12→20:19)
--- NOTE | 2016-08-29 06:10 | NUR ---
Pt with tracheal bleeding fresh blood moderate amount while suctioning and coughing.Cool saline lavaged,no respiratory distress noted,will continue to monitor and will endorsed.
[2016-08-29 07:37] VITALS: BP 119/72
[2016-08-29] MEDS: MVI/MINERALS LIQUID (CEROVITE) GT SCH (09:57)
[2016-08-29] MEDS: HYDROGEN PEROXIDE 480 ML BOTTLE TP SCH ×4 (09:58→20:19)
[2016-08-29] MEDS: OCUSOFT LID SCRUB TP SCH ×2 (09:58→17:37)
[2016-08-29] MEDS: SERTRALINE HCL 25 MG TABLET GT SCH (09:58)
[2016-08-29] MEDS: CHLORHEXIDINE GLUCONATE 15 ML UDC MM SCH ×2 (09:58→17:37)
[2016-08-29] MEDS: MINERAL OIL/PETROLATUM,WHITE 454 GM JAR TP SCH ×2 (09:58→20:19)
[2016-08-29] MEDS: CLOTRIMAZOLE/BETAMETASONE DIPROPIONATE 15 GM TUBE TP SCH ×2 (09:58→20:19)
[2016-08-29] MEDS: Z GUARD REMEDY 4 OZ OINT TP SCH ×4 (09:58→20:20)
[2016-08-29] MEDS: ASCORBIC ACID 500 MG TABLET GT SCH (09:58)
[2016-08-29] MEDS: PROSOURCE / PROSTAT (PYXIS) 30 ML UDC GT SCH (09:58)
--- NOTE | 2016-08-29 14:31 | NUR ---
IDT meeting held, team reviewed new orders. Informed Dr. Reese that resident still have bleeding from the trach during suctioning. Previous labs labs & chest Xray were reviewed, no other order given At this time MD stated to minimize suctioning and continue to use iced lavage.
--- NOTE | 2016-08-29 15:15 | NUR ---
INTERDISCIPLINARY PLAN OF CARE CONFERENCE was held today. Resident's family was unable to attend. New orders were reviewed. Dr. Reese and the interdisciplinary team reviewed the current plan of care in detail. Patient has been complaining of abdominal pain and has an order for triple antibiotic. Resident continues to have tracheal bleeding and Dr. Reese stated to minimize his suctioning.
[2016-08-29] MEDS ORDERED: DIATR MEGLU/DIATRIZOATE SODIUM 30 ML BOTTLE (GASTROGRAPHIN) ONE (17:01)
[2016-08-29] MEDS: FIBERSOURCE HN 1,000 ML BOTTLE GT PRN (17:37)
--- NOTE | 2016-08-29 18:04 | NUR ---
Dr. Ferrara came to change current GT with a bigger size, he was present with Fr. 24/20ml balloon and Fr.28/10 ml balloon, Dr. Ferrara prefer to use a bigger balloon. Abdominal KUB with gastrografin ordered stat to verify placement. Resident tolerated procedure, denies pain. Resident's sister Carlos called and updated her with new orders and episode of bleeding from the trach. Sister unable to speak with resident on the phone as he was asleep at this time. Endorsed to incoming shift to follow-up KUB result.
[2016-08-29 19:45] VITALS: BP 114/67
--- NOTE | 2016-08-29 20:00 | NUR ---
Resident in bed awake and alert, trach to ventilator connected, patent and intact, noted pt with tracheal bleeding still, md aware, will closely monitor at this time, suction and lavage with cold saline. Continue to monitor.
--- NOTE | 2016-08-29 20:18 | NUR ---
Notified Dr. Ferrara of abdominal KUB result stated that it is OK to feed resident, GT placement verified. Endorsed to start feeding.
--- NOTE | 2016-08-29 20:18 | NUR ---
RT RECEIVED PT [facility]/ALERT WITH NOTED SETTINGS.. TRACH IS PATENT AND SECURE . VENT PLUGGED IN TO RED OUTLET . AMBU BAG AT [facility]. MEDICAL LEAD DONE. SUCTIONED MOD AMOUNT OF BLOOD TINGED SECRETIONS RN AWARE, WILL CONTINUE TO MONITOR.
[2016-08-30] MEDS: SUCRALFATE 1 G/10 ML UDC GT SCH ×6 (00:28→20:59)
[2016-08-30] MEDS: IPRATROPIUM NEB FS 0.5 MG/2.5 ML AMPUL.NEB IH SCH ×4 (01:31→19:45)
[2016-08-30] MEDS: ALBUTEROL FS 2.5 MG/0.5 ML VIAL.NEB NEB SCH ×4 (01:31→19:45)
[2016-08-30] MEDS: POLYVINYL ALCOHOL 15 ML BOTTLE EACHEYE SCH ×3 (05:25→20:59)
[2016-08-30] MEDS: OMEPRAZOLE 20 MG CAPSULE.DR GT SCH (05:25)
[2016-08-30 07:32] VITALS: BP 108/61
[2016-08-30] MEDS: PROSOURCE / PROSTAT (PYXIS) 30 ML UDC GT SCH (09:42)
[2016-08-30] MEDS: ASCORBIC ACID 500 MG TABLET GT SCH (09:42)
[2016-08-30] MEDS: SERTRALINE HCL 25 MG TABLET GT SCH (09:42)
[2016-08-30] MEDS: CLOTRIMAZOLE/BETAMETASONE DIPROPIONATE 15 GM TUBE TP SCH ×2 (09:42→20:59)
[2016-08-30] MEDS: CHLORHEXIDINE GLUCONATE 15 ML UDC MM SCH ×2 (09:42→17:22)
[2016-08-30] MEDS: MINERAL OIL/PETROLATUM,WHITE 454 GM JAR TP SCH ×2 (09:42→20:59)
[2016-08-30] MEDS: HYDROGEN PEROXIDE 480 ML BOTTLE TP SCH ×4 (09:42→20:59)
[2016-08-30] MEDS: Z GUARD REMEDY 4 OZ OINT TP SCH ×4 (09:42→20:59)
[2016-08-30] MEDS: MVI/MINERALS LIQUID (CEROVITE) GT SCH (09:42)
[2016-08-30] MEDS: OCUSOFT LID SCRUB TP SCH ×2 (09:42→17:22)
[2016-08-30] MEDS: FIBERSOURCE HN 1,000 ML BOTTLE GT PRN ×2 (11:48→23:33)
--- NOTE | 2016-08-30 15:30 | NUR ---
Resident's family in [place] ([place]) attempted to communicate with him via facetime but resident is resisting. He is angry with the nurse and swing his arms in disagreement however, after an hour or so another attempt was made, patient was more calm. education program coordinator assisted resident while he was talking to family members via facetime. Later on Elizabeth (sister) called and was apologetic with his brother's reaction. Assured Elizabeth that resident is kang and staff do not take his rejections personally.
[2016-08-30 19:29] VITALS: BP 123/77
[2016-08-30] MEDS: TEMAZEPAM 7.5 MG CAPSULE GT PRN (20:59)
[2016-08-31] MEDS: SUCRALFATE 1 G/10 ML UDC GT SCH ×6 (00:28→21:15)
[2016-08-31] MEDS: IPRATROPIUM NEB FS 0.5 MG/2.5 ML AMPUL.NEB IH SCH ×4 (01:39→19:46)
[2016-08-31] MEDS: ALBUTEROL FS 2.5 MG/0.5 ML VIAL.NEB NEB SCH ×4 (01:39→19:46)
[2016-08-31] MEDS: POLYVINYL ALCOHOL 15 ML BOTTLE EACHEYE SCH ×3 (05:07→21:15)
[2016-08-31] MEDS: OMEPRAZOLE 20 MG CAPSULE.DR GT SCH (05:07)
--- NOTE | 2016-08-31 06:14 | NUR ---
Patient still with tracheal bleeding fresh blood with some clots.Suctioning with cold saline and will continue to monitor.
[2016-08-31 08:11] VITALS: BP 116/67
[2016-08-31] MEDS: MVI/MINERALS LIQUID (CEROVITE) GT SCH (09:43)
[2016-08-31] MEDS: SERTRALINE HCL 25 MG TABLET GT SCH (09:43)
[2016-08-31] MEDS: PROSOURCE / PROSTAT (PYXIS) 30 ML UDC GT SCH (09:43)
[2016-08-31] MEDS: ASCORBIC ACID 500 MG TABLET GT SCH (09:43)
[2016-08-31] MEDS: OCUSOFT LID SCRUB TP SCH ×2 (09:44→17:00)
[2016-08-31] MEDS: MINERAL OIL/PETROLATUM,WHITE 454 GM JAR TP SCH ×2 (09:44→21:15)
[2016-08-31] MEDS: CHLORHEXIDINE GLUCONATE 15 ML UDC MM SCH ×2 (09:44→17:00)
[2016-08-31] MEDS: CLOTRIMAZOLE/BETAMETASONE DIPROPIONATE 15 GM TUBE TP SCH ×2 (09:45→21:15)
[2016-08-31] MEDS: HYDROGEN PEROXIDE 480 ML BOTTLE TP SCH ×4 (09:45→21:15)
[2016-08-31] MEDS: Z GUARD REMEDY 4 OZ OINT TP SCH ×4 (09:46→21:15)
--- NOTE | 2016-08-31 17:30 | NUR ---
Patient still noted with tracheal Bleeding. Spoke with Jesus Nayak and received an order for CBC on 09/01
[2016-08-31 19:31] VITALS: BP 105/72
[2016-09-01] MEDS: SUCRALFATE 1 G/10 ML UDC GT SCH ×6 (00:04→20:20)
[2016-09-01] MEDS: IPRATROPIUM NEB FS 0.5 MG/2.5 ML AMPUL.NEB IH SCH ×4 (01:42→19:30)
[2016-09-01] MEDS: ALBUTEROL FS 2.5 MG/0.5 ML VIAL.NEB NEB SCH ×4 (01:42→19:30)
[2016-09-01] MEDS: POLYVINYL ALCOHOL 15 ML BOTTLE EACHEYE SCH ×3 (05:18→20:20)
[2016-09-01] MEDS: OMEPRAZOLE 20 MG CAPSULE.DR GT SCH (05:18)
[2016-09-01 06:31] LABS: BASOPHILS % (AUTO) 0.2 % (0.0-2.0); EOSINOPHILS # (AUTO) 0.1 /CMM (0.0-0.7); EOSINOPHILS % (AUTO) 1.6 % (0.0-6.0); HEMATOCRIT 29 % (39-51); HEMOGLOBIN 9.2 g/dL (13.5-17.5); LYMPHOCYTES # (AUTO) 0.6 /CMM (0.8-4.8); LYMPHOCYTES % (AUTO) 10.5 % (20.0-44.0); MEAN CORPUSCULAR HEMOGLOBIN 28 PG (26.0-33.0); MEAN CORPUSCULAR HGB CONC 32 g/dl (31.0-36.0); MEAN CORPUSCULAR VOLUME 87 fL (80-96); MONOCYTES # (AUTO) 0.5 /CMM (0.1-1.30); MONOCYTES % (AUTO) 7.7 % (2.0-12.0); NEUTROPHILS # (AUTO) 4.7 /CMM (1.8-8.9); PLATELET COUNT (AUTO) 365 /CMM (150-450); RDW COEFFICIENT OF VARIATION 16.7 (11.5-15.0); RED BLOOD CELL COUNT(AUTO) 3.29 MIL/uL (4.5-6.0); WHITE BLOOD COUNT (AUTO) 5.9 K/uL (4.3-11.0)
[2016-09-01 07:57] VITALS: BP 129/74
[2016-09-01] MEDS: CHLORHEXIDINE GLUCONATE 15 ML UDC MM SCH ×2 (09:30→16:53)
[2016-09-01] MEDS: ASCORBIC ACID 500 MG TABLET GT SCH (09:30)
[2016-09-01] MEDS: MVI/MINERALS LIQUID (CEROVITE) GT SCH (09:30)
[2016-09-01] MEDS: SERTRALINE HCL 25 MG TABLET GT SCH (09:30)
[2016-09-01] MEDS: PROSOURCE / PROSTAT (PYXIS) 30 ML UDC GT SCH (09:30)
[2016-09-01] MEDS: Z GUARD REMEDY 4 OZ OINT TP SCH ×4 (09:31→20:20)
[2016-09-01] MEDS: OCUSOFT LID SCRUB TP SCH ×2 (09:31→16:53)
[2016-09-01] MEDS: MINERAL OIL/PETROLATUM,WHITE 454 GM JAR TP SCH ×2 (09:31→20:20)
[2016-09-01] MEDS: HYDROGEN PEROXIDE 480 ML BOTTLE TP SCH ×4 (09:31→20:20)
[2016-09-01] MEDS: CLOTRIMAZOLE/BETAMETASONE DIPROPIONATE 15 GM TUBE TP SCH ×2 (09:31→20:20)
[2016-09-01 19:44] VITALS: BP 101/61
[2016-09-02] MEDS: SUCRALFATE 1 G/10 ML UDC GT SCH ×6 (00:53→20:34)
[2016-09-02] MEDS: IPRATROPIUM NEB FS 0.5 MG/2.5 ML AMPUL.NEB IH SCH ×4 (01:59→19:30)
[2016-09-02] MEDS: ALBUTEROL FS 2.5 MG/0.5 ML VIAL.NEB NEB SCH ×4 (02:00→19:30)
[2016-09-02] MEDS: OMEPRAZOLE 20 MG CAPSULE.DR GT SCH (05:23)
[2016-09-02] MEDS: POLYVINYL ALCOHOL 15 ML BOTTLE EACHEYE SCH ×3 (05:23→20:34)
[2016-09-02 07:55] VITALS: BP 121/77
[2016-09-02] MEDS: MVI/MINERALS LIQUID (CEROVITE) GT SCH (09:35)
[2016-09-02] MEDS: HYDROGEN PEROXIDE 480 ML BOTTLE TP SCH ×4 (09:35→20:34)
[2016-09-02] MEDS: MINERAL OIL/PETROLATUM,WHITE 454 GM JAR TP SCH ×2 (09:35→20:34)
[2016-09-02] MEDS: ASCORBIC ACID 500 MG TABLET GT SCH (09:35)
[2016-09-02] MEDS: PROSOURCE / PROSTAT (PYXIS) 30 ML UDC GT SCH (09:35)
[2016-09-02] MEDS: SERTRALINE HCL 25 MG TABLET GT SCH (09:35)
[2016-09-02] MEDS: OCUSOFT LID SCRUB TP SCH ×2 (09:35→17:46)
[2016-09-02] MEDS: CHLORHEXIDINE GLUCONATE 15 ML UDC MM SCH ×2 (09:35→17:46)
[2016-09-02] MEDS: Z GUARD REMEDY 4 OZ OINT TP SCH ×4 (09:36→20:34)
[2016-09-02] MEDS: CLOTRIMAZOLE/BETAMETASONE DIPROPIONATE 15 GM TUBE TP SCH ×2 (09:36→20:34)
--- NOTE | 2016-09-02 10:00 | NUR ---
Seen by Dr Reese with new order Protime/Partial Thromboplastin due to tracheal bleeding on 09/03/16 order noted and carried out.Resident Amanda daughter made aware left message.
[2016-09-02 19:45] VITALS: BP 114/60
[2016-09-02 19:49] VITALS: BP 129/59
[2016-09-02] MEDS: FIBERSOURCE HN 1,000 ML BOTTLE GT PRN (21:44)
--- NOTE | 2016-09-02 23:31 | NUR ---
Resident continues to have trachael bleeding without SOB or pain evident. Respiration even and unlabored. Vital signs WNL. Suctioned and lavaged q 2 hours and prn. Will continue to monitor. Frequent visual check done.
[2016-09-03] MEDS: SUCRALFATE 1 G/10 ML UDC GT SCH ×6 (01:26→20:37)
[2016-09-03] MEDS: IPRATROPIUM NEB FS 0.5 MG/2.5 ML AMPUL.NEB IH SCH ×4 (01:58→20:02)
[2016-09-03] MEDS: ALBUTEROL FS 2.5 MG/0.5 ML VIAL.NEB NEB SCH ×4 (01:58→20:02)
[2016-09-03] MEDS: OMEPRAZOLE 20 MG CAPSULE.DR GT SCH (05:16)
[2016-09-03] MEDS: POLYVINYL ALCOHOL 15 ML BOTTLE EACHEYE SCH ×3 (05:16→20:37)
[2016-09-03 07:24] LABS: INR 0.96 (0.87-1.13); PROTHROMBIN TIME 10.3 SECS (9.5-12.7)
[2016-09-03 07:53] VITALS: BP 92/58
[2016-09-03] MEDS: MVI/MINERALS LIQUID (CEROVITE) GT SCH (09:18)
[2016-09-03] MEDS: ASCORBIC ACID 500 MG TABLET GT SCH (09:18)
[2016-09-03] MEDS: CHLORHEXIDINE GLUCONATE 15 ML UDC MM SCH ×2 (09:19→17:37)
[2016-09-03] MEDS: SERTRALINE HCL 25 MG TABLET GT SCH (09:19)
[2016-09-03] MEDS: PROSOURCE / PROSTAT (PYXIS) 30 ML UDC GT SCH (09:20)
[2016-09-03] MEDS: MINERAL OIL/PETROLATUM,WHITE 454 GM JAR TP SCH ×2 (09:21→20:37)
[2016-09-03] MEDS: HYDROGEN PEROXIDE 480 ML BOTTLE TP SCH ×4 (09:21→20:38)
[2016-09-03] MEDS: OCUSOFT LID SCRUB TP SCH ×2 (09:21→17:37)
[2016-09-03] MEDS: Z GUARD REMEDY 4 OZ OINT TP SCH ×4 (09:22→20:38)
[2016-09-03] MEDS: CLOTRIMAZOLE/BETAMETASONE DIPROPIONATE 15 GM TUBE TP SCH ×2 (09:22→20:38)
--- NOTE | 2016-09-03 17:40 | NUR ---
Seen and examined by Isidra Ayala NP for Dr. Reese, medical physicist, patient still with tracheal bleeding despite minimal suctioning and use of ice lavage. Reported PT/PTT result, NNO given, continue to observe.
[2016-09-03 20:24] VITALS: BP 131/69
--- NOTE | 2016-09-03 22:52 | NUR ---
Resident continues to have tracheal bleeding without SOB or pain noted. Respiration even and unlabored. O2 sat at 99%. Vital signs with in nornal limit. Suctioned and lavaged q 2 hours and prn. Will continue to monitor. Frequent visual check done.
[2016-09-04] MEDS: SUCRALFATE 1 G/10 ML UDC GT SCH ×6 (00:08→20:16)
[2016-09-04] MEDS: ALBUTEROL FS 2.5 MG/0.5 ML VIAL.NEB NEB SCH ×4 (02:19→20:18)
[2016-09-04] MEDS: IPRATROPIUM NEB FS 0.5 MG/2.5 ML AMPUL.NEB IH SCH ×4 (02:19→20:18)
[2016-09-04] MEDS: POLYVINYL ALCOHOL 15 ML BOTTLE EACHEYE SCH ×3 (05:21→20:16)
[2016-09-04] MEDS: OMEPRAZOLE 20 MG CAPSULE.DR GT SCH (05:21)
[2016-09-04] MEDS: FIBERSOURCE HN 1,000 ML BOTTLE GT PRN ×2 (06:14→21:36)
[2016-09-04 07:49] VITALS: BP 112/73
[2016-09-04] MEDS: PROSOURCE / PROSTAT (PYXIS) 30 ML UDC GT SCH (09:00)
[2016-09-04] MEDS: SERTRALINE HCL 25 MG TABLET GT SCH (09:00)
[2016-09-04] MEDS: HYDROGEN PEROXIDE 480 ML BOTTLE TP SCH ×4 (09:00→20:16)
[2016-09-04] MEDS: Z GUARD REMEDY 4 OZ OINT TP SCH ×4 (09:00→20:16)
[2016-09-04] MEDS: MVI/MINERALS LIQUID (CEROVITE) GT SCH (09:00)
[2016-09-04] MEDS: OCUSOFT LID SCRUB TP SCH ×2 (09:00→17:33)
[2016-09-04] MEDS: MINERAL OIL/PETROLATUM,WHITE 454 GM JAR TP SCH ×2 (09:00→20:16)
[2016-09-04] MEDS: CHLORHEXIDINE GLUCONATE 15 ML UDC MM SCH ×2 (09:00→17:33)
[2016-09-04] MEDS: ASCORBIC ACID 500 MG TABLET GT SCH (09:00)
[2016-09-04] MEDS: CLOTRIMAZOLE/BETAMETASONE DIPROPIONATE 15 GM TUBE TP SCH ×2 (09:00→20:16)
--- NOTE | 2016-09-04 18:04 | NUR ---
Patient is still noted with tracheal bleeding. Seen and examined by Dr. Vance. Notified him regarding weight gain. NNO given. Dr. Vance Aware about recent labs of CBC and PT/PTT
[2016-09-04 21:07] VITALS: BP 102/62
[2016-09-05] MEDS: SUCRALFATE 1 G/10 ML UDC GT SCH ×6 (01:13→20:18)
[2016-09-05] MEDS: ALBUTEROL FS 2.5 MG/0.5 ML VIAL.NEB NEB SCH ×4 (01:30→19:23)
[2016-09-05] MEDS: IPRATROPIUM NEB FS 0.5 MG/2.5 ML AMPUL.NEB IH SCH ×4 (01:31→19:23)
[2016-09-05] MEDS: POLYVINYL ALCOHOL 15 ML BOTTLE EACHEYE SCH ×3 (05:05→20:17)
[2016-09-05] MEDS: OMEPRAZOLE 20 MG CAPSULE.DR GT SCH (05:05)
[2016-09-05] MEDS: SIMETHICONE SUSP 40 MG/0.6 ML BOTTLE GT PRN (05:06)
[2016-09-05 07:39] VITALS: BP_SYST 111; BP_SYST 119; BP_DIAS 52; BP_DIAS 62
[2016-09-05] MEDS: ASCORBIC ACID 500 MG TABLET GT SCH (09:21)
[2016-09-05] MEDS: SERTRALINE HCL 25 MG TABLET GT SCH (09:21)
[2016-09-05] MEDS: PROSOURCE / PROSTAT (PYXIS) 30 ML UDC GT SCH (09:21)
[2016-09-05] MEDS: MVI/MINERALS LIQUID (CEROVITE) GT SCH (09:21)
[2016-09-05] MEDS: CHLORHEXIDINE GLUCONATE 15 ML UDC MM SCH ×2 (09:21→17:15)
[2016-09-05] MEDS: Z GUARD REMEDY 4 OZ OINT TP SCH ×4 (09:22→20:18)
[2016-09-05] MEDS: HYDROGEN PEROXIDE 480 ML BOTTLE TP SCH ×4 (09:22→20:18)
[2016-09-05] MEDS: OCUSOFT LID SCRUB TP SCH ×2 (09:22→17:15)
[2016-09-05] MEDS: MINERAL OIL/PETROLATUM,WHITE 454 GM JAR TP SCH ×2 (09:22→20:18)
[2016-09-05] MEDS: CLOTRIMAZOLE/BETAMETASONE DIPROPIONATE 15 GM TUBE TP SCH ×2 (09:22→20:18)
[2016-09-05] MEDS: FIBERSOURCE HN 1,000 ML BOTTLE GT PRN (15:57)
[2016-09-05] MEDS: TEMAZEPAM 7.5 MG CAPSULE GT PRN (21:18)
[2016-09-05 23:19] VITALS: BP 111/71
[2016-09-06] MEDS: SUCRALFATE 1 G/10 ML UDC GT SCH ×6 (00:19→21:20)
[2016-09-06] MEDS: IPRATROPIUM NEB FS 0.5 MG/2.5 ML AMPUL.NEB IH SCH ×4 (01:00→20:18)
[2016-09-06] MEDS: ALBUTEROL FS 2.5 MG/0.5 ML VIAL.NEB NEB SCH ×4 (01:00→20:18)
[2016-09-06] MEDS: OMEPRAZOLE 20 MG CAPSULE.DR GT SCH (05:24)
[2016-09-06] MEDS: POLYVINYL ALCOHOL 15 ML BOTTLE EACHEYE SCH ×3 (05:24→21:20)
[2016-09-06] MEDS: FIBERSOURCE HN 1,000 ML BOTTLE GT PRN (05:24)
[2016-09-06 07:51] VITALS: BP 110/65
[2016-09-06] MEDS: MVI/MINERALS LIQUID (CEROVITE) GT SCH (08:59)
[2016-09-06] MEDS: PROSOURCE / PROSTAT (PYXIS) 30 ML UDC GT SCH (08:59)
[2016-09-06] MEDS: OCUSOFT LID SCRUB TP SCH ×2 (09:00→17:26)
[2016-09-06] MEDS: SERTRALINE HCL 25 MG TABLET GT SCH (09:00)
[2016-09-06] MEDS: CHLORHEXIDINE GLUCONATE 15 ML UDC MM SCH ×2 (09:00→17:26)
[2016-09-06] MEDS: ASCORBIC ACID 500 MG TABLET GT SCH (09:00)
[2016-09-06] MEDS: Z GUARD REMEDY 4 OZ OINT TP SCH ×4 (11:30→21:21)
[2016-09-06] MEDS: MINERAL OIL/PETROLATUM,WHITE 454 GM JAR TP SCH ×2 (11:30→21:20)
[2016-09-06] MEDS: HYDROGEN PEROXIDE 480 ML BOTTLE TP SCH ×4 (11:30→21:20)
[2016-09-06] MEDS: CLOTRIMAZOLE/BETAMETASONE DIPROPIONATE 15 GM TUBE TP SCH ×2 (11:30→21:21)
[2016-09-06 20:44] VITALS: BP 98/62
[2016-09-07] MEDS: SUCRALFATE 1 G/10 ML UDC GT SCH ×6 (00:27→20:50)
[2016-09-07] MEDS: ALBUTEROL FS 2.5 MG/0.5 ML VIAL.NEB NEB SCH ×4 (00:53→19:16)
[2016-09-07] MEDS: IPRATROPIUM NEB FS 0.5 MG/2.5 ML AMPUL.NEB IH SCH ×4 (00:53→19:16)
--- NOTE | 2016-09-07 01:08 | NUR ---
EQUIPMENT CHANGED. Addendum: 09/07/16 at 0108 by DARRYL LAWRENCE RT Amended: Links added.
[2016-09-07] MEDS: POLYVINYL ALCOHOL 15 ML BOTTLE EACHEYE SCH ×3 (05:16→20:50)
[2016-09-07] MEDS: OMEPRAZOLE 20 MG CAPSULE.DR GT SCH (05:16)
[2016-09-07] MEDS: FIBERSOURCE HN 1,000 ML BOTTLE GT PRN ×2 (06:28→20:47)
[2016-09-07 08:20] VITALS: BP 107/61
[2016-09-07] MEDS: OCUSOFT LID SCRUB TP SCH ×2 (09:00→17:49)
[2016-09-07] MEDS: CLOTRIMAZOLE/BETAMETASONE DIPROPIONATE 15 GM TUBE TP SCH ×2 (09:00→20:50)
[2016-09-07] MEDS: MINERAL OIL/PETROLATUM,WHITE 454 GM JAR TP SCH ×2 (09:00→20:50)
[2016-09-07] MEDS: PROSOURCE / PROSTAT (PYXIS) 30 ML UDC GT SCH (09:00)
[2016-09-07] MEDS: SERTRALINE HCL 25 MG TABLET GT SCH (09:00)
[2016-09-07] MEDS: CHLORHEXIDINE GLUCONATE 15 ML UDC MM SCH ×2 (09:00→17:49)
[2016-09-07] MEDS: ASCORBIC ACID 500 MG TABLET GT SCH (09:00)
[2016-09-07] MEDS: MVI/MINERALS LIQUID (CEROVITE) GT SCH (09:00)
[2016-09-07] MEDS: Z GUARD REMEDY 4 OZ OINT TP SCH ×4 (09:00→20:50)
[2016-09-07] MEDS: HYDROGEN PEROXIDE 480 ML BOTTLE TP SCH ×4 (09:00→20:50)
[2016-09-07 19:17] VITALS: BP 106/64
[2016-09-08] MEDS: SUCRALFATE 1 G/10 ML UDC GT SCH ×5 (01:09→20:18)
[2016-09-08] MEDS: ALBUTEROL FS 2.5 MG/0.5 ML VIAL.NEB NEB SCH ×4 (02:01→19:26)
[2016-09-08] MEDS: IPRATROPIUM NEB FS 0.5 MG/2.5 ML AMPUL.NEB IH SCH ×4 (02:01→19:26)
[2016-09-08 08:00] VITALS: BP 94/52
[2016-09-08] MEDS: ASCORBIC ACID 500 MG TABLET GT SCH (09:00)
[2016-09-08] MEDS: CHLORHEXIDINE GLUCONATE 15 ML UDC MM SCH ×2 (09:00→17:00)
[2016-09-08] MEDS: HYDROGEN PEROXIDE 480 ML BOTTLE TP SCH ×4 (09:00→20:19)
[2016-09-08] MEDS: OCUSOFT LID SCRUB TP SCH ×2 (09:00→17:00)
[2016-09-08] MEDS: MINERAL OIL/PETROLATUM,WHITE 454 GM JAR TP SCH ×2 (09:00→20:18)
[2016-09-08] MEDS: MVI/MINERALS LIQUID (CEROVITE) GT SCH (09:00)
[2016-09-08] MEDS: SERTRALINE HCL 25 MG TABLET GT SCH (09:00)
[2016-09-08] MEDS: CLOTRIMAZOLE/BETAMETASONE DIPROPIONATE 15 GM TUBE TP SCH ×2 (09:00→20:19)
[2016-09-08] MEDS: PROSOURCE / PROSTAT (PYXIS) 30 ML UDC GT SCH (09:00)
[2016-09-08] MEDS: Z GUARD REMEDY 4 OZ OINT TP SCH ×4 (09:00→20:19)
[2016-09-08] MEDS: POLYVINYL ALCOHOL 15 ML BOTTLE EACHEYE SCH ×2 (13:35→20:18)
[2016-09-08] MEDS: FIBERSOURCE HN 1,000 ML BOTTLE GT PRN (14:18)
--- NOTE | 2016-09-08 15:35 | NUR ---
PATIENT AWAKE AND ALERT. DOESN'T LIKE SUCTIONING. CONTINUE SAME VENTILATOR SETTINGS IHSAN MOLINA RCP Addendum: 09/08/16 at 1540 by IHSAN MOLINA RT Amended: Links added.
[2016-09-08 19:52] VITALS: BP 103/62
[2016-09-09] MEDS: SUCRALFATE 1 G/10 ML UDC GT SCH ×6 (00:18→20:38)
[2016-09-09] MEDS: IPRATROPIUM NEB FS 0.5 MG/2.5 ML AMPUL.NEB IH SCH ×4 (01:10→20:16)
[2016-09-09] MEDS: ALBUTEROL FS 2.5 MG/0.5 ML VIAL.NEB NEB SCH ×4 (01:11→20:16)
[2016-09-09] MEDS: POLYVINYL ALCOHOL 15 ML BOTTLE EACHEYE SCH ×3 (05:12→20:38)
--- NOTE | 2016-09-09 05:48 | NUR ---
Resident noted with tracheal bleeding. Suctioned and lavaged without c/o pain or discomfort. Respiration even and unlabored. V.S within normal limit. O2 sat at 100% connected to ventilator at prescribed settings. Will continue to monitor. Frequent visual check done.
[2016-09-09] MEDS: OMEPRAZOLE 20 MG CAPSULE.DR GT SCH ×2 (06:00→06:08)
[2016-09-09 08:00] VITALS: BP 92/58
[2016-09-09] MEDS: OCUSOFT LID SCRUB TP SCH ×2 (09:55→17:32)
[2016-09-09] MEDS: ASCORBIC ACID 500 MG TABLET GT SCH (09:55)
[2016-09-09] MEDS: SERTRALINE HCL 25 MG TABLET GT SCH (09:55)
[2016-09-09] MEDS: CHLORHEXIDINE GLUCONATE 15 ML UDC MM SCH ×2 (09:55→17:32)
[2016-09-09] MEDS: MINERAL OIL/PETROLATUM,WHITE 454 GM JAR TP SCH ×2 (09:55→20:39)
[2016-09-09] MEDS: MVI/MINERALS LIQUID (CEROVITE) GT SCH (09:55)
[2016-09-09] MEDS: PROSOURCE / PROSTAT (PYXIS) 30 ML UDC GT SCH (09:55)
[2016-09-09] MEDS: Z GUARD REMEDY 4 OZ OINT TP SCH ×4 (09:56→20:39)
[2016-09-09] MEDS: HYDROGEN PEROXIDE 480 ML BOTTLE TP SCH ×4 (09:56→20:39)
[2016-09-09] MEDS: CLOTRIMAZOLE/BETAMETASONE DIPROPIONATE 15 GM TUBE TP SCH ×2 (09:56→20:39)
--- NOTE | 2016-09-09 10:10 | NUR ---
Seen and examined by Dr Reese with no new order.Informed of pt episode of tracheal bleeding per MD its not new it will happen on and off bleeding.Will continue to monitor.
[2016-09-09] MEDS: FIBERSOURCE HN 1,000 ML BOTTLE GT PRN (10:13)
--- NOTE | 2016-09-09 11:02 | NUR ---
Resident's daughter Olivia Olivo called and stated that she made an appt with the social security office on October 16, 2016 for the resident's benefits.
[2016-09-09 19:51] VITALS: BP 105/68
--- NOTE | 2016-09-09 23:29 | NUR ---
Resident still noted with tracheal bleeding. Suctioned and lavaged q 2hrs and prn. No c/o pain or discomfort. Respiration even and unlabored. O2 sat at 100%. VS WNL. Will continue to monitor.
[2016-09-10] MEDS: FIBERSOURCE HN 1,000 ML BOTTLE GT PRN (00:08)
[2016-09-10] MEDS: SUCRALFATE 1 G/10 ML UDC GT SCH ×6 (00:08→20:18)
[2016-09-10] MEDS: IPRATROPIUM NEB FS 0.5 MG/2.5 ML AMPUL.NEB IH SCH ×4 (01:30→19:46)
[2016-09-10] MEDS: ALBUTEROL FS 2.5 MG/0.5 ML VIAL.NEB NEB SCH ×4 (01:30→19:46)
[2016-09-10] MEDS: OMEPRAZOLE 20 MG CAPSULE.DR GT SCH (05:35)
[2016-09-10] MEDS: POLYVINYL ALCOHOL 15 ML BOTTLE EACHEYE SCH ×3 (05:35→20:18)
[2016-09-10 07:51] VITALS: BP 96/62
[2016-09-10] MEDS: PROSOURCE / PROSTAT (PYXIS) 30 ML UDC GT SCH (09:50)
[2016-09-10] MEDS: MVI/MINERALS LIQUID (CEROVITE) GT SCH (09:50)
[2016-09-10] MEDS: OCUSOFT LID SCRUB TP SCH ×2 (09:51→17:00)
[2016-09-10] MEDS: Z GUARD REMEDY 4 OZ OINT TP SCH ×4 (09:51→20:18)
[2016-09-10] MEDS: CHLORHEXIDINE GLUCONATE 15 ML UDC MM SCH ×2 (09:51→17:00)
[2016-09-10] MEDS: SERTRALINE HCL 25 MG TABLET GT SCH (09:51)
[2016-09-10] MEDS: MINERAL OIL/PETROLATUM,WHITE 454 GM JAR TP SCH ×2 (09:51→20:18)
[2016-09-10] MEDS: HYDROGEN PEROXIDE 480 ML BOTTLE TP SCH ×2 (09:51→20:18)
[2016-09-10] MEDS: ASCORBIC ACID 500 MG TABLET GT SCH (09:51)
[2016-09-10] MEDS: CLOTRIMAZOLE/BETAMETASONE DIPROPIONATE 15 GM TUBE TP SCH ×2 (09:51→20:18)
[2016-09-10 20:13] VITALS: BP 109/64
[2016-09-11] MEDS: SUCRALFATE 1 G/10 ML UDC GT SCH ×6 (00:33→20:54)
[2016-09-11] MEDS: IPRATROPIUM NEB FS 0.5 MG/2.5 ML AMPUL.NEB IH SCH ×4 (01:42→20:28)
[2016-09-11] MEDS: ALBUTEROL FS 2.5 MG/0.5 ML VIAL.NEB NEB SCH ×4 (01:43→20:28)
[2016-09-11] MEDS: OMEPRAZOLE 20 MG CAPSULE.DR GT SCH (05:14)
[2016-09-11] MEDS: POLYVINYL ALCOHOL 15 ML BOTTLE EACHEYE SCH ×3 (05:14→20:52)
--- NOTE | 2016-09-11 06:09 | NUR ---
Resident still noted with tracheal bleeding during shift. Suctioned and lavaged q 2hrs and prn. Resident denies any c/o pain or discomfort. Respiration even and unlabored. O2 sat at 100%. VS WNL. Will continue to monitor.
[2016-09-11 07:24] VITALS: BP 113/74
[2016-09-11] MEDS: ASCORBIC ACID 500 MG TABLET GT SCH (08:59)
[2016-09-11] MEDS: MVI/MINERALS LIQUID (CEROVITE) GT SCH (08:59)
[2016-09-11] MEDS: SERTRALINE HCL 25 MG TABLET GT SCH (09:00)
[2016-09-11] MEDS: OCUSOFT LID SCRUB TP SCH ×2 (09:01→17:44)
[2016-09-11] MEDS: PROSOURCE / PROSTAT (PYXIS) 30 ML UDC GT SCH (09:01)
[2016-09-11] MEDS: MINERAL OIL/PETROLATUM,WHITE 454 GM JAR TP SCH ×2 (09:01→20:53)
[2016-09-11] MEDS: CHLORHEXIDINE GLUCONATE 15 ML UDC MM SCH ×2 (09:01→17:44)
[2016-09-11] MEDS: Z GUARD REMEDY 4 OZ OINT TP SCH ×2 (09:01→20:53)
[2016-09-11] MEDS: HYDROGEN PEROXIDE 480 ML BOTTLE TP SCH ×2 (09:01→20:53)
[2016-09-11] MEDS: FIBERSOURCE HN 1,000 ML BOTTLE GT PRN (11:55)
--- NOTE | 2016-09-11 15:41 | NUR ---
RT RECEIVED PT TRACH'D ON [facility] VENT WITH SETTINGS PER MD ORDER. PT IS AWAKE AND RESPONSIVE. PROGRAM DIRECTOR AIR TALENT DONE. BILAT BREATH SOUNDS ON AUSCULTATION. ALARMS ON AND WORKING PROPERLY. VENT PLUGGED INTO RED OUTLET. SPARE TRACH AND AMBU BAG AT BEDSIDE. TX'S GIVEN. NO ADVERSE EFFECTS OBSERVED. TRACH SECURE AND AIRWAY PATENT. SUCTIONED MODERATE AMOUNTS OF THICK, PALE/YELLOW SECRETIONS. NO SOB NOTED AT THIS TIME. WILL CONTINUE TO MONITOR THE PATIENT FOR ANY CHANGES. Addendum: 09/11/16 at 1643 by IVAN HALL RT Amended: Links added.
[2016-09-11 19:16] VITALS: BP 121/70
[2016-09-12] MEDS: SUCRALFATE 1 G/10 ML UDC GT SCH ×6 (01:06→21:10)
[2016-09-12] MEDS: ALBUTEROL FS 2.5 MG/0.5 ML VIAL.NEB NEB SCH ×4 (01:15→19:30)
[2016-09-12] MEDS: IPRATROPIUM NEB FS 0.5 MG/2.5 ML AMPUL.NEB IH SCH ×4 (01:15→19:30)
[2016-09-12] MEDS: POLYVINYL ALCOHOL 15 ML BOTTLE EACHEYE SCH ×3 (04:54→21:10)
[2016-09-12] MEDS: OMEPRAZOLE 20 MG CAPSULE.DR GT SCH (04:56)
[2016-09-12] MEDS: FIBERSOURCE HN 1,000 ML BOTTLE GT PRN ×2 (04:57→18:57)
[2016-09-12 07:49] VITALS: BP 100/61
[2016-09-12] MEDS: SERTRALINE HCL 25 MG TABLET GT SCH (09:16)
[2016-09-12] MEDS: PROSOURCE / PROSTAT (PYXIS) 30 ML UDC GT SCH (09:16)
[2016-09-12] MEDS: ASCORBIC ACID 500 MG TABLET GT SCH (09:16)
[2016-09-12] MEDS: MVI/MINERALS LIQUID (CEROVITE) GT SCH (09:16)
[2016-09-12] MEDS: HYDROGEN PEROXIDE 480 ML BOTTLE TP SCH ×2 (09:17→21:11)
[2016-09-12] MEDS: Z GUARD REMEDY 4 OZ OINT TP SCH ×2 (09:17→21:11)
[2016-09-12] MEDS: MINERAL OIL/PETROLATUM,WHITE 454 GM JAR TP SCH ×2 (09:17→21:10)
[2016-09-12] MEDS: OCUSOFT LID SCRUB TP SCH ×2 (09:17→17:00)
[2016-09-12] MEDS: CHLORHEXIDINE GLUCONATE 15 ML UDC MM SCH ×2 (09:17→17:00)
[2016-09-12 19:45] VITALS: BP 102/61
[2016-09-13] MEDS: SUCRALFATE 1 G/10 ML UDC GT SCH ×6 (00:03→21:06)
[2016-09-13] MEDS: IPRATROPIUM NEB FS 0.5 MG/2.5 ML AMPUL.NEB IH SCH ×4 (00:52→19:30)
[2016-09-13] MEDS: ALBUTEROL FS 2.5 MG/0.5 ML VIAL.NEB NEB SCH ×4 (00:53→19:30)
[2016-09-13] MEDS: OMEPRAZOLE 20 MG CAPSULE.DR GT SCH (05:16)
[2016-09-13] MEDS: POLYVINYL ALCOHOL 15 ML BOTTLE EACHEYE SCH ×3 (05:16→21:06)
[2016-09-13 07:42] VITALS: BP 114/73
[2016-09-13] MEDS: SERTRALINE HCL 25 MG TABLET GT SCH (09:06)
[2016-09-13] MEDS: MVI/MINERALS LIQUID (CEROVITE) GT SCH (09:06)
[2016-09-13] MEDS: CHLORHEXIDINE GLUCONATE 15 ML UDC MM SCH ×2 (09:06→16:24)
[2016-09-13] MEDS: ASCORBIC ACID 500 MG TABLET GT SCH (09:06)
[2016-09-13] MEDS: PROSOURCE / PROSTAT (PYXIS) 30 ML UDC GT SCH (09:06)
[2016-09-13] MEDS: OCUSOFT LID SCRUB TP SCH ×2 (09:07→16:24)
[2016-09-13] MEDS: MINERAL OIL/PETROLATUM,WHITE 454 GM JAR TP SCH ×2 (10:15→21:06)
[2016-09-13] MEDS: Z GUARD REMEDY 4 OZ OINT TP SCH ×2 (10:15→21:07)
[2016-09-13] MEDS: HYDROGEN PEROXIDE 480 ML BOTTLE TP SCH ×2 (10:15→21:07)
[2016-09-13] MEDS: FIBERSOURCE HN 1,000 ML BOTTLE GT PRN (13:12)
[2016-09-13 19:43] VITALS: BP 106/55
[2016-09-14] MEDS: IPRATROPIUM NEB FS 0.5 MG/2.5 ML AMPUL.NEB IH SCH ×4 (01:17→20:17)
[2016-09-14] MEDS: ALBUTEROL FS 2.5 MG/0.5 ML VIAL.NEB NEB SCH ×4 (01:17→20:17)
[2016-09-14] MEDS: SUCRALFATE 1 G/10 ML UDC GT SCH ×6 (01:47→21:05)
[2016-09-14] MEDS: FIBERSOURCE HN 1,000 ML BOTTLE GT PRN ×2 (04:59→17:59)
[2016-09-14] MEDS: POLYVINYL ALCOHOL 15 ML BOTTLE EACHEYE SCH ×3 (05:41→21:05)
[2016-09-14] MEDS: OMEPRAZOLE 20 MG CAPSULE.DR GT SCH (05:41)
[2016-09-14 07:36] VITALS: BP 104/58
[2016-09-14] MEDS: OCUSOFT LID SCRUB TP SCH ×2 (09:00→17:42)
[2016-09-14] MEDS: SERTRALINE HCL 25 MG TABLET GT SCH (09:00)
[2016-09-14] MEDS: ASCORBIC ACID 500 MG TABLET GT SCH (09:53)
[2016-09-14] MEDS: PROSOURCE / PROSTAT (PYXIS) 30 ML UDC GT SCH (09:53)
[2016-09-14] MEDS: CHLORHEXIDINE GLUCONATE 15 ML UDC MM SCH ×2 (09:53→17:42)
[2016-09-14] MEDS: MVI/MINERALS LIQUID (CEROVITE) GT SCH (09:53)
[2016-09-14] MEDS: HYDROGEN PEROXIDE 480 ML BOTTLE TP SCH ×2 (11:00→21:06)
[2016-09-14] MEDS: Z GUARD REMEDY 4 OZ OINT TP SCH ×2 (11:00→21:06)
[2016-09-14] MEDS: MINERAL OIL/PETROLATUM,WHITE 454 GM JAR TP SCH ×2 (11:00→21:05)
[2016-09-14 19:55] VITALS: BP 108/65
[2016-09-15] MEDS: SUCRALFATE 1 G/10 ML UDC GT SCH ×6 (00:32→21:04)
[2016-09-15] MEDS: ALBUTEROL FS 2.5 MG/0.5 ML VIAL.NEB NEB SCH ×4 (01:24→20:26)
[2016-09-15] MEDS: IPRATROPIUM NEB FS 0.5 MG/2.5 ML AMPUL.NEB IH SCH ×4 (01:24→20:26)
[2016-09-15] MEDS: POLYVINYL ALCOHOL 15 ML BOTTLE EACHEYE SCH ×3 (05:12→21:04)
[2016-09-15] MEDS: OMEPRAZOLE 20 MG CAPSULE.DR GT SCH (05:12)
[2016-09-15 07:59] VITALS: BP 109/50
[2016-09-15] MEDS: MVI/MINERALS LIQUID (CEROVITE) GT SCH (09:36)
[2016-09-15] MEDS: CHLORHEXIDINE GLUCONATE 15 ML UDC MM SCH ×2 (09:36→17:13)
[2016-09-15] MEDS: PROSOURCE / PROSTAT (PYXIS) 30 ML UDC GT SCH (09:36)
[2016-09-15] MEDS: ASCORBIC ACID 500 MG TABLET GT SCH (09:36)
[2016-09-15] MEDS: SERTRALINE HCL 25 MG TABLET GT SCH (09:36)
[2016-09-15] MEDS: OCUSOFT LID SCRUB TP SCH ×2 (10:30→17:00)
[2016-09-15] MEDS: HYDROGEN PEROXIDE 480 ML BOTTLE TP SCH ×2 (10:30→21:04)
[2016-09-15] MEDS: Z GUARD REMEDY 4 OZ OINT TP SCH ×2 (10:30→21:04)
[2016-09-15] MEDS: MINERAL OIL/PETROLATUM,WHITE 454 GM JAR TP SCH ×2 (10:30→21:04)
[2016-09-15] MEDS: FIBERSOURCE HN 1,000 ML BOTTLE GT PRN (13:29)
[2016-09-15 19:51] VITALS: BP 90/60
[2016-09-16] MEDS: SUCRALFATE 1 G/10 ML UDC GT SCH ×6 (00:01→20:20)
[2016-09-16] MEDS: ALBUTEROL FS 2.5 MG/0.5 ML VIAL.NEB NEB SCH ×4 (01:03→20:28)
[2016-09-16] MEDS: IPRATROPIUM NEB FS 0.5 MG/2.5 ML AMPUL.NEB IH SCH ×4 (01:03→20:28)
[2016-09-16] MEDS: OMEPRAZOLE 20 MG CAPSULE.DR GT SCH (05:44)
[2016-09-16] MEDS: POLYVINYL ALCOHOL 15 ML BOTTLE EACHEYE SCH ×3 (05:44→20:21)
[2016-09-16 07:55] VITALS: BP 103/54
[2016-09-16] MEDS: PROSOURCE / PROSTAT (PYXIS) 30 ML UDC GT SCH (08:01)
[2016-09-16] MEDS: OCUSOFT LID SCRUB TP SCH ×2 (08:01→17:39)
[2016-09-16] MEDS: Z GUARD REMEDY 4 OZ OINT TP SCH ×2 (08:01→20:21)
[2016-09-16] MEDS: MINERAL OIL/PETROLATUM,WHITE 454 GM JAR TP SCH ×2 (08:01→20:21)
[2016-09-16] MEDS: ASCORBIC ACID 500 MG TABLET GT SCH (08:01)
[2016-09-16] MEDS: CHLORHEXIDINE GLUCONATE 15 ML UDC MM SCH ×2 (08:01→17:38)
[2016-09-16] MEDS: HYDROGEN PEROXIDE 480 ML BOTTLE TP SCH ×2 (08:01→20:21)
[2016-09-16] MEDS: MVI/MINERALS LIQUID (CEROVITE) GT SCH (08:01)
[2016-09-16] MEDS: SERTRALINE HCL 25 MG TABLET GT SCH (08:01)
[2016-09-16 19:35] VITALS: BP 104/62
[2016-09-17] MEDS: SUCRALFATE 1 G/10 ML UDC GT SCH ×6 (00:27→21:32)
[2016-09-17] MEDS: ALBUTEROL FS 2.5 MG/0.5 ML VIAL.NEB NEB SCH ×4 (01:05→19:56)
[2016-09-17] MEDS: IPRATROPIUM NEB FS 0.5 MG/2.5 ML AMPUL.NEB IH SCH ×4 (01:05→19:56)
[2016-09-17] MEDS: POLYVINYL ALCOHOL 15 ML BOTTLE EACHEYE SCH ×3 (05:48→21:32)
[2016-09-17] MEDS: OMEPRAZOLE 20 MG CAPSULE.DR GT SCH (05:49)
[2016-09-17 08:09] VITALS: BP 100/61
[2016-09-17] MEDS: MINERAL OIL/PETROLATUM,WHITE 454 GM JAR TP SCH ×2 (09:00→21:32)
[2016-09-17] MEDS: PROSOURCE / PROSTAT (PYXIS) 30 ML UDC GT SCH (09:15)
[2016-09-17] MEDS: CHLORHEXIDINE GLUCONATE 15 ML UDC MM SCH ×2 (09:15→17:00)
[2016-09-17] MEDS: ASCORBIC ACID 500 MG TABLET GT SCH (09:15)
[2016-09-17] MEDS: SERTRALINE HCL 25 MG TABLET GT SCH (09:15)
[2016-09-17] MEDS: MVI/MINERALS LIQUID (CEROVITE) GT SCH (09:15)
[2016-09-17] MEDS: Z GUARD REMEDY 4 OZ OINT TP SCH ×2 (10:15→21:33)
[2016-09-17] MEDS: HYDROGEN PEROXIDE 480 ML BOTTLE TP SCH ×2 (10:15→21:32)
[2016-09-17] MEDS: OCUSOFT LID SCRUB TP SCH ×2 (10:15→17:00)
[2016-09-17] MEDS: FIBERSOURCE HN 1,000 ML BOTTLE GT PRN (16:33)
[2016-09-17 20:29] VITALS: BP 103/64
[2016-09-18] MEDS: ALBUTEROL FS 2.5 MG/0.5 ML VIAL.NEB NEB SCH ×4 (01:34→20:09)
[2016-09-18] MEDS: IPRATROPIUM NEB FS 0.5 MG/2.5 ML AMPUL.NEB IH SCH ×4 (01:34→20:09)
[2016-09-18] MEDS: SUCRALFATE 1 G/10 ML UDC GT SCH ×6 (01:47→20:31)
[2016-09-18] MEDS: OMEPRAZOLE 20 MG CAPSULE.DR GT SCH (05:33)
[2016-09-18] MEDS: POLYVINYL ALCOHOL 15 ML BOTTLE EACHEYE SCH ×3 (05:33→20:31)
[2016-09-18] MEDS: FIBERSOURCE HN 1,000 ML BOTTLE GT PRN ×2 (05:33→21:45)
[2016-09-18 07:37] VITALS: BP 102/62
[2016-09-18] MEDS: Z GUARD REMEDY 4 OZ OINT TP SCH ×2 (08:38→20:32)
[2016-09-18] MEDS: ASCORBIC ACID 500 MG TABLET GT SCH (08:38)
[2016-09-18] MEDS: SERTRALINE HCL 25 MG TABLET GT SCH (08:38)
[2016-09-18] MEDS: MVI/MINERALS LIQUID (CEROVITE) GT SCH (08:38)
[2016-09-18] MEDS: PROSOURCE / PROSTAT (PYXIS) 30 ML UDC GT SCH (08:38)
[2016-09-18] MEDS: OCUSOFT LID SCRUB TP SCH ×2 (08:38→16:52)
[2016-09-18] MEDS: HYDROGEN PEROXIDE 480 ML BOTTLE TP SCH ×2 (08:38→20:32)
[2016-09-18] MEDS: MINERAL OIL/PETROLATUM,WHITE 454 GM JAR TP SCH ×2 (08:38→20:32)
[2016-09-18] MEDS: CHLORHEXIDINE GLUCONATE 15 ML UDC MM SCH ×2 (08:38→16:52)
[2016-09-18] MEDS ORDERED: NEOMY SULF/BACITRAC ZN/POLY 15 GM TUBE TP PRN (09:00)
[2016-09-18] MEDS: NEOMY SULF/BACITRAC ZN/POLY 15 GM TUBE TP SCH (09:00)
[2016-09-18 20:28] VITALS: BP 114/61
[2016-09-19] MEDS: TEMAZEPAM 7.5 MG CAPSULE GT PRN (00:35)
[2016-09-19] MEDS: SUCRALFATE 1 G/10 ML UDC GT SCH ×6 (00:35→20:24)
[2016-09-19] MEDS: ALBUTEROL FS 2.5 MG/0.5 ML VIAL.NEB NEB SCH ×4 (01:21→19:30)
[2016-09-19] MEDS: IPRATROPIUM NEB FS 0.5 MG/2.5 ML AMPUL.NEB IH SCH ×4 (01:21→19:30)
[2016-09-19] MEDS: POLYVINYL ALCOHOL 15 ML BOTTLE EACHEYE SCH ×3 (05:09→20:24)
[2016-09-19] MEDS: OMEPRAZOLE 20 MG CAPSULE.DR GT SCH (05:09)
[2016-09-19 07:36] VITALS: BP 132/62
[2016-09-19] MEDS: MINERAL OIL/PETROLATUM,WHITE 454 GM JAR TP SCH ×2 (08:31→20:25)
[2016-09-19] MEDS: MVI/MINERALS LIQUID (CEROVITE) GT SCH (08:31)
[2016-09-19] MEDS: OCUSOFT LID SCRUB TP SCH ×2 (08:31→16:44)
[2016-09-19] MEDS: PROSOURCE / PROSTAT (PYXIS) 30 ML UDC GT SCH (08:31)
[2016-09-19] MEDS: CHLORHEXIDINE GLUCONATE 15 ML UDC MM SCH ×2 (08:31→16:44)
[2016-09-19] MEDS: ASCORBIC ACID 500 MG TABLET GT SCH (08:31)
[2016-09-19] MEDS: SERTRALINE HCL 25 MG TABLET GT SCH (08:31)
[2016-09-19] MEDS: HYDROGEN PEROXIDE 480 ML BOTTLE TP SCH ×2 (08:32→20:25)
[2016-09-19] MEDS: Z GUARD REMEDY 4 OZ OINT TP SCH ×2 (08:32→20:25)
--- NOTE | 2016-09-19 14:03 | NUR ---
IDT meeting held, reviewed new orders, medications, treatments and plan of care. NNO given.
--- NOTE | 2016-09-19 16:00 | NUR ---
Resident was seen by Dr. Jang (drilling contractor) today. No new orders were given and he recommended a follow up in 6-9 months. He stated that there is no active infection and no treatment is required at this time.
[2016-09-19 20:15] VITALS: BP 110/56
[2016-09-19 21:37] VITALS: BP 105/65
[2016-09-20] MEDS: SUCRALFATE 1 G/10 ML UDC GT SCH ×6 (00:37→20:34)
[2016-09-20] MEDS: TEMAZEPAM 7.5 MG CAPSULE GT PRN (00:46)
[2016-09-20] MEDS: IPRATROPIUM NEB FS 0.5 MG/2.5 ML AMPUL.NEB IH SCH ×4 (01:38→19:37)
[2016-09-20] MEDS: ALBUTEROL FS 2.5 MG/0.5 ML VIAL.NEB NEB SCH ×4 (01:38→19:37)
[2016-09-20] MEDS: POLYVINYL ALCOHOL 15 ML BOTTLE EACHEYE SCH ×3 (05:13→20:34)
[2016-09-20] MEDS: OMEPRAZOLE 20 MG CAPSULE.DR GT SCH (05:13)
[2016-09-20 07:54] VITALS: BP 98/60
[2016-09-20] MEDS: SERTRALINE HCL 25 MG TABLET GT SCH (09:00)
[2016-09-20] MEDS: PROSOURCE / PROSTAT (PYXIS) 30 ML UDC GT SCH (09:00)
[2016-09-20] MEDS: MVI/MINERALS LIQUID (CEROVITE) GT SCH (09:00)
[2016-09-20] MEDS: ASCORBIC ACID 500 MG TABLET GT SCH (09:00)
[2016-09-20] MEDS: CHLORHEXIDINE GLUCONATE 15 ML UDC MM SCH ×2 (09:00→17:00)
[2016-09-20] MEDS: FIBERSOURCE HN 1,000 ML BOTTLE GT PRN (12:36)
[2016-09-20] MEDS: Z GUARD REMEDY 4 OZ OINT TP SCH ×2 (14:30→21:00)
[2016-09-20] MEDS: OCUSOFT LID SCRUB TP SCH ×2 (14:30→17:00)
[2016-09-20] MEDS: HYDROGEN PEROXIDE 480 ML BOTTLE TP SCH ×2 (14:30→21:00)
[2016-09-20] MEDS: MINERAL OIL/PETROLATUM,WHITE 454 GM JAR TP SCH ×2 (14:30→21:00)
[2016-09-20 20:49] VITALS: BP 103/73
[2016-09-21] MEDS: SUCRALFATE 1 G/10 ML UDC GT SCH ×6 (00:19→21:04)
[2016-09-21] MEDS: IPRATROPIUM NEB FS 0.5 MG/2.5 ML AMPUL.NEB IH SCH ×4 (01:50→19:16)
[2016-09-21] MEDS: ALBUTEROL FS 2.5 MG/0.5 ML VIAL.NEB NEB SCH ×4 (01:51→19:16)
[2016-09-21] MEDS: FIBERSOURCE HN 1,000 ML BOTTLE GT PRN ×2 (03:39→21:05)
[2016-09-21] MEDS: POLYVINYL ALCOHOL 15 ML BOTTLE EACHEYE SCH ×3 (05:00→21:04)
[2016-09-21] MEDS: OMEPRAZOLE 20 MG CAPSULE.DR GT SCH (06:11)
[2016-09-21 08:00] VITALS: BP 107/73
[2016-09-21] MEDS: Z GUARD REMEDY 4 OZ OINT TP SCH ×2 (09:06→21:05)
[2016-09-21] MEDS: ASCORBIC ACID 500 MG TABLET GT SCH (09:06)
[2016-09-21] MEDS: CHLORHEXIDINE GLUCONATE 15 ML UDC MM SCH ×2 (09:06→16:31)
[2016-09-21] MEDS: OCUSOFT LID SCRUB TP SCH ×2 (09:06→16:31)
[2016-09-21] MEDS: NEOMY SULF/BACITRAC ZN/POLY 15 GM TUBE TP SCH (09:06)
[2016-09-21] MEDS: HYDROGEN PEROXIDE 480 ML BOTTLE TP SCH ×2 (09:06→21:05)
[2016-09-21] MEDS: PROSOURCE / PROSTAT (PYXIS) 30 ML UDC GT SCH (09:06)
[2016-09-21] MEDS: MINERAL OIL/PETROLATUM,WHITE 454 GM JAR TP SCH ×2 (09:06→21:04)
[2016-09-21] MEDS: MVI/MINERALS LIQUID (CEROVITE) GT SCH (09:06)
[2016-09-21] MEDS: SERTRALINE HCL 25 MG TABLET GT SCH (09:06)
--- NOTE | 2016-09-21 11:30 | NUR ---
Seen and examined by Dr. Vance with no new order given.
--- NOTE | 2016-09-21 15:39 | NUR ---
Received endorsement from previous shift, patient noted with multiple discolorations on left posterior arm. Skin intact, no sign & symptoms of infection noted. Dr. Nayak notified will continue to monitor for any skin changes. Patient no c/o pain/discomfort on site.
[2016-09-21 19:39] VITALS: BP 108/67
[2016-09-22] MEDS: SUCRALFATE 1 G/10 ML UDC GT SCH ×6 (00:03→21:21)
[2016-09-22] MEDS: ALBUTEROL FS 2.5 MG/0.5 ML VIAL.NEB NEB SCH ×4 (01:22→20:03)
[2016-09-22] MEDS: IPRATROPIUM NEB FS 0.5 MG/2.5 ML AMPUL.NEB IH SCH ×4 (01:22→20:03)
[2016-09-22] MEDS: OMEPRAZOLE 20 MG CAPSULE.DR GT SCH (05:20)
[2016-09-22] MEDS: POLYVINYL ALCOHOL 15 ML BOTTLE EACHEYE SCH ×3 (05:26→21:21)
[2016-09-22 08:00] VITALS: BP 106/62
[2016-09-22] MEDS: MVI/MINERALS LIQUID (CEROVITE) GT SCH (09:00)
[2016-09-22] MEDS: CHLORHEXIDINE GLUCONATE 15 ML UDC MM SCH ×2 (09:00→17:03)
[2016-09-22] MEDS: HYDROGEN PEROXIDE 480 ML BOTTLE TP SCH ×2 (09:00→21:22)
[2016-09-22] MEDS: Z GUARD REMEDY 4 OZ OINT TP SCH ×2 (09:00→21:22)
[2016-09-22] MEDS: PROSOURCE / PROSTAT (PYXIS) 30 ML UDC GT SCH (09:00)
[2016-09-22] MEDS: MINERAL OIL/PETROLATUM,WHITE 454 GM JAR TP SCH ×2 (09:00→21:21)
[2016-09-22] MEDS: OCUSOFT LID SCRUB TP SCH ×2 (09:00→17:03)
[2016-09-22] MEDS: ASCORBIC ACID 500 MG TABLET GT SCH (09:00)
[2016-09-22] MEDS: SERTRALINE HCL 25 MG TABLET GT SCH (09:00)
[2016-09-22 19:46] VITALS: BP 103/66
[2016-09-23] MEDS: SUCRALFATE 1 G/10 ML UDC GT SCH ×6 (00:06→21:07)
[2016-09-23] MEDS: ALBUTEROL FS 2.5 MG/0.5 ML VIAL.NEB NEB SCH ×4 (00:53→20:07)
[2016-09-23] MEDS: IPRATROPIUM NEB FS 0.5 MG/2.5 ML AMPUL.NEB IH SCH ×4 (00:53→20:07)
[2016-09-23] MEDS: POLYVINYL ALCOHOL 15 ML BOTTLE EACHEYE SCH ×3 (05:23→21:06)
[2016-09-23] MEDS: OMEPRAZOLE 20 MG CAPSULE.DR GT SCH (05:24)
[2016-09-23 08:00] VITALS: BP 111/62
[2016-09-23] MEDS: HYDROGEN PEROXIDE 480 ML BOTTLE TP SCH ×2 (09:00→21:07)
[2016-09-23] MEDS: CHLORHEXIDINE GLUCONATE 15 ML UDC MM SCH ×2 (09:00→17:00)
[2016-09-23] MEDS: MINERAL OIL/PETROLATUM,WHITE 454 GM JAR TP SCH ×2 (09:00→21:07)
[2016-09-23] MEDS: PROSOURCE / PROSTAT (PYXIS) 30 ML UDC GT SCH (09:00)
[2016-09-23] MEDS: Z GUARD REMEDY 4 OZ OINT TP SCH ×2 (09:00→21:07)
[2016-09-23] MEDS: OCUSOFT LID SCRUB TP SCH ×2 (09:00→17:00)
[2016-09-23] MEDS: SERTRALINE HCL 25 MG TABLET GT SCH (09:00)
[2016-09-23] MEDS: ASCORBIC ACID 500 MG TABLET GT SCH (09:00)
[2016-09-23] MEDS: MVI/MINERALS LIQUID (CEROVITE) GT SCH (09:00)
[2016-09-23 19:36] VITALS: BP 143/66
[2016-09-24] MEDS: SUCRALFATE 1 G/10 ML UDC GT SCH ×6 (00:02→20:53)
[2016-09-24] MEDS: IPRATROPIUM NEB FS 0.5 MG/2.5 ML AMPUL.NEB IH SCH ×4 (01:41→20:08)
[2016-09-24] MEDS: ALBUTEROL FS 2.5 MG/0.5 ML VIAL.NEB NEB SCH ×4 (01:41→20:08)
[2016-09-24] MEDS: POLYVINYL ALCOHOL 15 ML BOTTLE EACHEYE SCH ×3 (05:59→20:53)
[2016-09-24] MEDS: OMEPRAZOLE 20 MG CAPSULE.DR GT SCH (05:59)
[2016-09-24 07:54] VITALS: BP 103/67
[2016-09-24] MEDS: MVI/MINERALS LIQUID (CEROVITE) GT SCH (09:28)
[2016-09-24] MEDS: PROSOURCE / PROSTAT (PYXIS) 30 ML UDC GT SCH (09:28)
[2016-09-24] MEDS: ASCORBIC ACID 500 MG TABLET GT SCH (09:28)
[2016-09-24] MEDS: SERTRALINE HCL 25 MG TABLET GT SCH (09:28)
[2016-09-24] MEDS: CHLORHEXIDINE GLUCONATE 15 ML UDC MM SCH ×2 (09:30→17:33)
[2016-09-24] MEDS: MINERAL OIL/PETROLATUM,WHITE 454 GM JAR TP SCH ×2 (09:30→20:53)
[2016-09-24] MEDS: OCUSOFT LID SCRUB TP SCH ×2 (09:32→17:33)
[2016-09-24] MEDS ORDERED: NEOMY SULF/BACITRAC ZN/POLY 15 GM TUBE TP PRN (11:30)
[2016-09-24] MEDS: NEOMY SULF/BACITRAC ZN/POLY 15 GM TUBE TP SCH ×2 (11:30→13:24)
[2016-09-24] MEDS: HYDROGEN PEROXIDE 480 ML BOTTLE TP SCH ×2 (13:22→20:53)
[2016-09-24] MEDS: Z GUARD REMEDY 4 OZ OINT TP SCH ×2 (13:25→20:53)
[2016-09-24] MEDS: FIBERSOURCE HN 1,000 ML BOTTLE GT PRN (15:09)
[2016-09-24 20:37] VITALS: BP 110/55
[2016-09-25] MEDS: SUCRALFATE 1 G/10 ML UDC GT SCH ×6 (00:38→21:06)
[2016-09-25] MEDS: ALBUTEROL FS 2.5 MG/0.5 ML VIAL.NEB NEB SCH ×4 (02:24→19:50)
[2016-09-25] MEDS: IPRATROPIUM NEB FS 0.5 MG/2.5 ML AMPUL.NEB IH SCH ×4 (02:24→19:50)
[2016-09-25] MEDS: OMEPRAZOLE 20 MG CAPSULE.DR GT SCH (05:14)
[2016-09-25] MEDS: POLYVINYL ALCOHOL 15 ML BOTTLE EACHEYE SCH ×4 (05:14→21:06)
[2016-09-25] MEDS: FIBERSOURCE HN 1,000 ML BOTTLE GT PRN ×2 (05:15→20:30)
[2016-09-25 07:37] VITALS: BP 127/65
[2016-09-25] MEDS: Z GUARD REMEDY 4 OZ OINT TP SCH ×2 (09:00→21:18)
[2016-09-25] MEDS: OCUSOFT LID SCRUB TP SCH ×2 (09:00→16:56)
[2016-09-25] MEDS: MINERAL OIL/PETROLATUM,WHITE 454 GM JAR TP SCH ×2 (09:00→21:18)
[2016-09-25] MEDS: SERTRALINE HCL 25 MG TABLET GT SCH (09:00)
[2016-09-25] MEDS: PROSOURCE / PROSTAT (PYXIS) 30 ML UDC GT SCH (09:00)
[2016-09-25] MEDS: CHLORHEXIDINE GLUCONATE 15 ML UDC MM SCH ×2 (09:00→16:56)
[2016-09-25] MEDS: ASCORBIC ACID 500 MG TABLET GT SCH (09:00)
[2016-09-25] MEDS: MVI/MINERALS LIQUID (CEROVITE) GT SCH (09:00)
[2016-09-25] MEDS: HYDROGEN PEROXIDE 480 ML BOTTLE TP SCH ×2 (09:00→21:18)
[2016-09-25 21:11] VITALS: BP 110/65
[2016-09-26] MEDS: SUCRALFATE 1 G/10 ML UDC GT SCH ×6 (00:46→21:10)
[2016-09-26] MEDS: IPRATROPIUM NEB FS 0.5 MG/2.5 ML AMPUL.NEB IH SCH ×4 (02:04→19:23)
[2016-09-26] MEDS: ALBUTEROL FS 2.5 MG/0.5 ML VIAL.NEB NEB SCH ×4 (02:04→19:23)
[2016-09-26] MEDS: POLYVINYL ALCOHOL 15 ML BOTTLE EACHEYE SCH ×3 (05:00→21:10)
[2016-09-26] MEDS: OMEPRAZOLE 20 MG CAPSULE.DR GT SCH (06:08)
[2016-09-26 07:37] VITALS: BP 121/57
[2016-09-26] MEDS: MVI/MINERALS LIQUID (CEROVITE) GT SCH (09:07)
[2016-09-26] MEDS: PROSOURCE / PROSTAT (PYXIS) 30 ML UDC GT SCH (09:07)
[2016-09-26] MEDS: SERTRALINE HCL 25 MG TABLET GT SCH (09:08)
[2016-09-26] MEDS: ASCORBIC ACID 500 MG TABLET GT SCH (09:08)
[2016-09-26] MEDS: CHLORHEXIDINE GLUCONATE 15 ML UDC MM SCH ×2 (09:09→17:10)
[2016-09-26] MEDS: MINERAL OIL/PETROLATUM,WHITE 454 GM JAR TP SCH ×2 (09:09→21:10)
[2016-09-26] MEDS: Z GUARD REMEDY 4 OZ OINT TP SCH ×2 (09:10→21:10)
[2016-09-26] MEDS: OCUSOFT LID SCRUB TP SCH ×2 (09:10→17:10)
[2016-09-26] MEDS: HYDROGEN PEROXIDE 480 ML BOTTLE TP SCH ×2 (09:10→21:10)
[2016-09-26 19:52] VITALS: BP 106/65
[2016-09-27] MEDS: SUCRALFATE 1 G/10 ML UDC GT SCH ×6 (00:23→21:01)
[2016-09-27] MEDS: TEMAZEPAM 7.5 MG CAPSULE GT PRN (00:24)
[2016-09-27] MEDS: IPRATROPIUM NEB FS 0.5 MG/2.5 ML AMPUL.NEB IH SCH ×4 (02:08→19:22)
[2016-09-27] MEDS: ALBUTEROL FS 2.5 MG/0.5 ML VIAL.NEB NEB SCH ×4 (02:08→19:23)
[2016-09-27] MEDS: OMEPRAZOLE 20 MG CAPSULE.DR GT SCH (05:42)
[2016-09-27] MEDS: POLYVINYL ALCOHOL 15 ML BOTTLE EACHEYE SCH ×3 (05:42→21:01)
[2016-09-27 07:29] VITALS: BP 101/61
--- NOTE | 2016-09-27 07:30 | NUR ---
NOTES RECEIVED PATIENT IN BED, EYES OPEN, NON VERBAL. TRACH IN PLACE, VENT SETTINGS REMAINS THE SAME. BREATHING EVEN AND NON LABORED. ON GTUBE FEEDING FIBERSOURCE 80ML/HR, MAINTAIN HOB ELEVATED. ON LEOLA MATTRESS, CONT TO MONITOR ACCORDINGLY. CALL LIGHT WITHIN REACH.
[2016-09-27 08:00] VITALS: BP 101/61
[2016-09-27] MEDS: MVI/MINERALS LIQUID (CEROVITE) GT SCH (08:19)
[2016-09-27] MEDS: PROSOURCE / PROSTAT (PYXIS) 30 ML UDC GT SCH (08:20)
[2016-09-27] MEDS: ASCORBIC ACID 500 MG TABLET GT SCH (08:21)
[2016-09-27] MEDS: SERTRALINE HCL 25 MG TABLET GT SCH (08:22)
[2016-09-27] MEDS: CHLORHEXIDINE GLUCONATE 15 ML UDC MM SCH ×2 (08:22→16:24)
[2016-09-27] MEDS: OCUSOFT LID SCRUB TP SCH ×2 (08:23→16:25)
[2016-09-27] MEDS: FIBERSOURCE HN 1,000 ML BOTTLE GT PRN ×2 (08:28→21:05)
[2016-09-27] MEDS: NEOMY SULF/BACITRAC ZN/POLY 15 GM TUBE TP SCH ×2 (09:00→12:38)
[2016-09-27] MEDS: MINERAL OIL/PETROLATUM,WHITE 454 GM JAR TP SCH ×2 (09:00→21:01)
[2016-09-27] MEDS: HYDROGEN PEROXIDE 480 ML BOTTLE TP SCH ×2 (10:00→21:01)
[2016-09-27] MEDS: Z GUARD REMEDY 4 OZ OINT TP SCH ×2 (10:11→21:01)
--- NOTE | 2016-09-27 18:40 | NUR ---
NOTES PATIENT IN BED, NOT IN DISTRESS, REMAIN STABLE. WILL ENDORSE TO MULTIMEDIA ASSISTANT RN FOR CONTINUITY OF CARE.
[2016-09-27 20:08] VITALS: BP 104/65
[2016-09-28] MEDS: SUCRALFATE 1 G/10 ML UDC GT SCH ×6 (00:37→20:20)
[2016-09-28] MEDS: IPRATROPIUM NEB FS 0.5 MG/2.5 ML AMPUL.NEB IH SCH ×4 (00:59→19:00)
[2016-09-28] MEDS: ALBUTEROL FS 2.5 MG/0.5 ML VIAL.NEB NEB SCH ×4 (00:59→19:00)
[2016-09-28] MEDS: OMEPRAZOLE 20 MG CAPSULE.DR GT SCH (05:27)
[2016-09-28] MEDS: POLYVINYL ALCOHOL 15 ML BOTTLE EACHEYE SCH ×3 (05:27→20:19)
[2016-09-28 07:28] VITALS: BP 107/63
--- NOTE | 2016-09-28 07:30 | NUR ---
RN NOTES RECEIVED PATIENT ON BED, EYES OPEN, NON VERBAL. TRACH IN PLACE, VENT SETTINGS REMAINS THE SAME. BREATHING EVEN AND NON LABORED. ON GTUBE FEEDING FIBERSOURCE 80ML/HR, MAINTAIN HOB ELEVATED TOLERATING WELL. NO RESIDUAL NOTED. ON LEOLA MATTRESS FOR SKIN MANAGEMENT. CALL LIGHT WITH IN REACH , BED IN LOW POSITION FOR SAFETY MEASURES. WILL CONT TO MONITOR ACCORDINGLY.
[2016-09-28] MEDS: MVI/MINERALS LIQUID (CEROVITE) GT SCH (07:56)
[2016-09-28] MEDS: PROSOURCE / PROSTAT (PYXIS) 30 ML UDC GT SCH (07:57)
[2016-09-28] MEDS: ASCORBIC ACID 500 MG TABLET GT SCH (07:57)
[2016-09-28] MEDS: SERTRALINE HCL 25 MG TABLET GT SCH (07:58)
[2016-09-28] MEDS: MINERAL OIL/PETROLATUM,WHITE 454 GM JAR TP SCH ×2 (07:59→20:20)
[2016-09-28] MEDS: OCUSOFT LID SCRUB TP SCH ×2 (07:59→16:59)
[2016-09-28] MEDS: Z GUARD REMEDY 4 OZ OINT TP SCH ×2 (07:59→20:20)
[2016-09-28] MEDS: CHLORHEXIDINE GLUCONATE 15 ML UDC MM SCH ×2 (07:59→16:59)
[2016-09-28] MEDS: HYDROGEN PEROXIDE 480 ML BOTTLE TP SCH ×2 (07:59→20:20)
[2016-09-28 08:00] VITALS: BP 107/63
--- NOTE | 2016-09-28 09:46 | NUR ---
RECEIVED PATIENT ON APPROPRIATE SETTINGS. PT IS AWAKE AND RESPONDS TO COMMENDS. NO DISTRESS NOTED. CUFF HAS BEEN CHECKED AND FILLED WITH AIR. EXTRA TRACHE AND AMBUBAG ARE BY BEDSIDE. VENT IS PLUGGED INTO RED OUTLET. GRICEL ESTRADAP Addendum: 09/28/16 at 0950 by CORETTA PARISI RT Amended: Links added.
--- NOTE | 2016-09-28 18:27 | NUR ---
RN NOTES ALL NEEDS ATTENDED AND ANTICIPATED. STABLE THE WHOLE SHIFT. ENDORSED TO INCOMING SHIFT FOR CONTINUITY OF CARE.
[2016-09-28 20:09] VITALS: BP 120/60
[2016-09-29] MEDS: SUCRALFATE 1 G/10 ML UDC GT SCH ×6 (00:29→20:16)
[2016-09-29] MEDS: ALBUTEROL FS 2.5 MG/0.5 ML VIAL.NEB NEB SCH ×4 (00:52→20:24)
[2016-09-29] MEDS: IPRATROPIUM NEB FS 0.5 MG/2.5 ML AMPUL.NEB IH SCH ×4 (00:52→20:24)
[2016-09-29] MEDS: OMEPRAZOLE 20 MG CAPSULE.DR GT SCH (05:22)
[2016-09-29] MEDS: POLYVINYL ALCOHOL 15 ML BOTTLE EACHEYE SCH ×3 (05:22→20:16)
[2016-09-29 07:49] VITALS: BP 108/67
[2016-09-29] MEDS: PROSOURCE / PROSTAT (PYXIS) 30 ML UDC GT SCH (08:49)
[2016-09-29] MEDS: MVI/MINERALS LIQUID (CEROVITE) GT SCH (08:49)
[2016-09-29] MEDS: SERTRALINE HCL 25 MG TABLET GT SCH (08:49)
[2016-09-29] MEDS: ASCORBIC ACID 500 MG TABLET GT SCH (08:49)
[2016-09-29] MEDS: CHLORHEXIDINE GLUCONATE 15 ML UDC MM SCH ×2 (08:49→17:18)
[2016-09-29] MEDS: Z GUARD REMEDY 4 OZ OINT TP SCH ×2 (08:50→20:16)
[2016-09-29] MEDS: OCUSOFT LID SCRUB TP SCH ×2 (08:50→17:00)
[2016-09-29] MEDS: MINERAL OIL/PETROLATUM,WHITE 454 GM JAR TP SCH ×2 (08:50→20:16)
[2016-09-29] MEDS: HYDROGEN PEROXIDE 480 ML BOTTLE TP SCH ×2 (08:50→20:16)
[2016-09-29 19:54] VITALS: BP 106/64
[2016-09-30] MEDS: SUCRALFATE 1 G/10 ML UDC GT SCH ×6 (00:21→20:18)
[2016-09-30] MEDS: ALBUTEROL FS 2.5 MG/0.5 ML VIAL.NEB NEB SCH ×4 (02:02→20:19)
[2016-09-30] MEDS: IPRATROPIUM NEB FS 0.5 MG/2.5 ML AMPUL.NEB IH SCH ×4 (02:02→20:19)
[2016-09-30] MEDS: POLYVINYL ALCOHOL 15 ML BOTTLE EACHEYE SCH ×3 (05:57→20:17)
[2016-09-30] MEDS: OMEPRAZOLE 20 MG CAPSULE.DR GT SCH (05:57)
[2016-09-30 07:32] VITALS: BP 112/67
[2016-09-30] MEDS: CHLORHEXIDINE GLUCONATE 15 ML UDC MM SCH ×2 (09:34→17:25)
[2016-09-30] MEDS: PROSOURCE / PROSTAT (PYXIS) 30 ML UDC GT SCH (09:34)
[2016-09-30] MEDS: NEOMY SULF/BACITRAC ZN/POLY 15 GM TUBE TP SCH ×2 (09:34→11:36)
[2016-09-30] MEDS: ASCORBIC ACID 500 MG TABLET GT SCH (09:34)
[2016-09-30] MEDS: MVI/MINERALS LIQUID (CEROVITE) GT SCH (09:34)
[2016-09-30] MEDS: SERTRALINE HCL 25 MG TABLET GT SCH (09:34)
[2016-09-30] MEDS: MINERAL OIL/PETROLATUM,WHITE 454 GM JAR TP SCH ×2 (09:34→20:18)
[2016-09-30] MEDS: Z GUARD REMEDY 4 OZ OINT TP SCH ×2 (09:34→20:18)
[2016-09-30] MEDS: OCUSOFT LID SCRUB TP SCH ×2 (09:34→17:25)
[2016-09-30] MEDS: HYDROGEN PEROXIDE 480 ML BOTTLE TP SCH ×2 (09:34→20:18)
[2016-09-30 20:02] VITALS: BP 105/56
[2016-10-01] MEDS: SUCRALFATE 1 G/10 ML UDC GT SCH ×6 (00:05→20:59)
[2016-10-01] MEDS: ALBUTEROL FS 2.5 MG/0.5 ML VIAL.NEB NEB SCH ×4 (01:36→19:34)
[2016-10-01] MEDS: IPRATROPIUM NEB FS 0.5 MG/2.5 ML AMPUL.NEB IH SCH ×4 (01:36→19:34)
[2016-10-01] MEDS: POLYVINYL ALCOHOL 15 ML BOTTLE EACHEYE SCH ×3 (05:00→20:59)
[2016-10-01] MEDS: OMEPRAZOLE 20 MG CAPSULE.DR GT SCH (06:29)
[2016-10-01 08:04] VITALS: BP 95/60
[2016-10-01] MEDS: OCUSOFT LID SCRUB TP SCH ×2 (09:00→17:00)
[2016-10-01] MEDS: MVI/MINERALS LIQUID (CEROVITE) GT SCH (09:29)
[2016-10-01] MEDS: HYDROGEN PEROXIDE 480 ML BOTTLE TP SCH ×2 (09:29→21:00)
[2016-10-01] MEDS: Z GUARD REMEDY 4 OZ OINT TP SCH ×2 (09:29→21:00)
[2016-10-01] MEDS: ASCORBIC ACID 500 MG TABLET GT SCH (09:29)
[2016-10-01] MEDS: PROSOURCE / PROSTAT (PYXIS) 30 ML UDC GT SCH (09:29)
[2016-10-01] MEDS: SERTRALINE HCL 25 MG TABLET GT SCH (09:29)
[2016-10-01] MEDS: MINERAL OIL/PETROLATUM,WHITE 454 GM JAR TP SCH ×2 (09:29→20:59)
[2016-10-01] MEDS: CHLORHEXIDINE GLUCONATE 15 ML UDC MM SCH ×2 (09:29→17:59)
--- NOTE | 2016-10-01 14:45 | NUR ---
SW asked resident if he wants to be placed into the gerichair, as there is a current order for this. He stated that he did not want to and wanted to stay in his bed. Charge nurse notified that resident refusing to be placed into the gerichair.
[2016-10-01 19:55] VITALS: BP 102/61
[2016-10-01] MEDS: TEMAZEPAM 7.5 MG CAPSULE GT PRN (23:53)
[2016-10-02] MEDS: SUCRALFATE 1 G/10 ML UDC GT SCH ×6 (01:46→21:11)
[2016-10-02] MEDS: FIBERSOURCE HN 1,000 ML BOTTLE GT PRN ×2 (01:54→17:05)
[2016-10-02] MEDS: IPRATROPIUM NEB FS 0.5 MG/2.5 ML AMPUL.NEB IH SCH ×4 (02:18→19:57)
[2016-10-02] MEDS: ALBUTEROL FS 2.5 MG/0.5 ML VIAL.NEB NEB SCH ×4 (02:18→19:57)
[2016-10-02] MEDS: POLYVINYL ALCOHOL 15 ML BOTTLE EACHEYE SCH ×3 (05:24→21:11)
[2016-10-02] MEDS: OMEPRAZOLE 20 MG CAPSULE.DR GT SCH (05:24)
[2016-10-02 08:06] VITALS: BP 104/63
[2016-10-02] MEDS: PROSOURCE / PROSTAT (PYXIS) 30 ML UDC GT SCH (08:59)
[2016-10-02] MEDS: ASCORBIC ACID 500 MG TABLET GT SCH (08:59)
[2016-10-02] MEDS: CHLORHEXIDINE GLUCONATE 15 ML UDC MM SCH ×2 (08:59→17:04)
[2016-10-02] MEDS: SERTRALINE HCL 25 MG TABLET GT SCH (08:59)
[2016-10-02] MEDS: MVI/MINERALS LIQUID (CEROVITE) GT SCH (08:59)
[2016-10-02] MEDS: OCUSOFT LID SCRUB TP SCH ×2 (09:00→17:04)
[2016-10-02] MEDS: Z GUARD REMEDY 4 OZ OINT TP SCH ×2 (10:15→21:11)
[2016-10-02] MEDS: MINERAL OIL/PETROLATUM,WHITE 454 GM JAR TP SCH ×2 (10:15→21:11)
[2016-10-02] MEDS: HYDROGEN PEROXIDE 480 ML BOTTLE TP SCH ×2 (10:15→21:11)
[2016-10-02 19:57] VITALS: BP 105/64
[2016-10-03] MEDS: SUCRALFATE 1 G/10 ML UDC GT SCH ×6 (00:22→21:12)
[2016-10-03] MEDS: IPRATROPIUM NEB FS 0.5 MG/2.5 ML AMPUL.NEB IH SCH ×4 (02:09→20:14)
[2016-10-03] MEDS: ALBUTEROL FS 2.5 MG/0.5 ML VIAL.NEB NEB SCH ×4 (02:09→20:14)
[2016-10-03] MEDS: FIBERSOURCE HN 1,000 ML BOTTLE GT PRN ×2 (02:55→17:09)
[2016-10-03] MEDS: OMEPRAZOLE 20 MG CAPSULE.DR GT SCH (05:25)
[2016-10-03] MEDS: POLYVINYL ALCOHOL 15 ML BOTTLE EACHEYE SCH ×3 (05:25→21:12)
[2016-10-03 08:25] VITALS: BP 102/61
[2016-10-03] MEDS: CHLORHEXIDINE GLUCONATE 15 ML UDC MM SCH ×2 (09:32→17:08)
[2016-10-03] MEDS: ASCORBIC ACID 500 MG TABLET GT SCH (09:32)
[2016-10-03] MEDS: PROSOURCE / PROSTAT (PYXIS) 30 ML UDC GT SCH (09:32)
[2016-10-03] MEDS: SERTRALINE HCL 25 MG TABLET GT SCH (09:32)
[2016-10-03] MEDS: MVI/MINERALS LIQUID (CEROVITE) GT SCH (09:32)
[2016-10-03] MEDS: OCUSOFT LID SCRUB TP SCH ×2 (11:30→17:08)
[2016-10-03] MEDS: Z GUARD REMEDY 4 OZ OINT TP SCH ×2 (11:30→21:13)
[2016-10-03] MEDS: NEOMY SULF/BACITRAC ZN/POLY 15 GM TUBE TP SCH (11:30)
[2016-10-03] MEDS: HYDROGEN PEROXIDE 480 ML BOTTLE TP SCH ×2 (11:30→21:12)
[2016-10-03] MEDS: MINERAL OIL/PETROLATUM,WHITE 454 GM JAR TP SCH ×2 (11:30→21:12)
--- NOTE | 2016-10-03 14:00 | NUR ---
IDT meeting held, resident's sister Elizabeth participated in the meeting via telephone conference. Current orders reviewed as well as plan of care. Elizabeth asked Dr. Reese if he can be weaned off ventilator, per Dr. Reese he is not anticipating getting him off ventilator at this time. Elizabeth also informed that resident refusing to be up in the chair, he is threatening to hit them when asked by staff to be suctioned. It was also mentioned that resident gaining weight gradually. October weight 102.2 (2.1 weight gain from last month). No order given at this time. No episode of tracheal bleeding.
[2016-10-03 19:48] VITALS: BP 111/55
[2016-10-04] MEDS: TEMAZEPAM 7.5 MG CAPSULE GT PRN (00:06)
[2016-10-04] MEDS: SUCRALFATE 1 G/10 ML UDC GT SCH ×6 (01:00→20:14)
[2016-10-04] MEDS: ALBUTEROL FS 2.5 MG/0.5 ML VIAL.NEB NEB SCH ×4 (02:05→19:42)
[2016-10-04] MEDS: IPRATROPIUM NEB FS 0.5 MG/2.5 ML AMPUL.NEB IH SCH ×4 (02:05→19:42)
[2016-10-04] MEDS: POLYVINYL ALCOHOL 15 ML BOTTLE EACHEYE SCH ×3 (05:29→20:14)
[2016-10-04] MEDS: OMEPRAZOLE 20 MG CAPSULE.DR GT SCH (05:29)
[2016-10-04] MEDS: FIBERSOURCE HN 1,000 ML BOTTLE GT PRN (05:49)
[2016-10-04 08:00] VITALS: BP 120/60
[2016-10-04] MEDS: MVI/MINERALS LIQUID (CEROVITE) GT SCH (09:34)
[2016-10-04] MEDS: ASCORBIC ACID 500 MG TABLET GT SCH (09:34)
[2016-10-04] MEDS: PROSOURCE / PROSTAT (PYXIS) 30 ML UDC GT SCH (09:34)
[2016-10-04] MEDS: SERTRALINE HCL 25 MG TABLET GT SCH (09:34)
[2016-10-04] MEDS: CHLORHEXIDINE GLUCONATE 15 ML UDC MM SCH ×2 (09:35→17:04)
[2016-10-04] MEDS: HYDROGEN PEROXIDE 480 ML BOTTLE TP SCH ×2 (12:00→20:14)
[2016-10-04] MEDS: MINERAL OIL/PETROLATUM,WHITE 454 GM JAR TP SCH ×2 (12:00→20:14)
[2016-10-04] MEDS: OCUSOFT LID SCRUB TP SCH ×2 (12:00→17:04)
[2016-10-04] MEDS: Z GUARD REMEDY 4 OZ OINT TP SCH ×2 (12:00→20:14)
[2016-10-04 19:59] VITALS: BP 100/59
[2016-10-05] MEDS: FIBERSOURCE HN 1,000 ML BOTTLE GT PRN (00:03)
[2016-10-05] MEDS: SUCRALFATE 1 G/10 ML UDC GT SCH ×6 (00:03→20:10)
[2016-10-05] MEDS: IPRATROPIUM NEB FS 0.5 MG/2.5 ML AMPUL.NEB IH SCH ×4 (01:21→19:15)
[2016-10-05] MEDS: ALBUTEROL FS 2.5 MG/0.5 ML VIAL.NEB NEB SCH ×4 (01:21→19:15)
[2016-10-05] MEDS: POLYVINYL ALCOHOL 15 ML BOTTLE EACHEYE SCH ×3 (05:27→20:10)
[2016-10-05] MEDS: OMEPRAZOLE 20 MG CAPSULE.DR GT SCH (05:27)
[2016-10-05 08:00] VITALS: BP 111/59
[2016-10-05] MEDS: MVI/MINERALS LIQUID (CEROVITE) GT SCH (08:58)
[2016-10-05] MEDS: PROSOURCE / PROSTAT (PYXIS) 30 ML UDC GT SCH (08:58)
[2016-10-05] MEDS: ASCORBIC ACID 500 MG TABLET GT SCH (08:59)
[2016-10-05] MEDS: CHLORHEXIDINE GLUCONATE 15 ML UDC MM SCH ×2 (08:59→17:00)
[2016-10-05] MEDS: Z GUARD REMEDY 4 OZ OINT TP SCH ×2 (08:59→20:10)
[2016-10-05] MEDS: MINERAL OIL/PETROLATUM,WHITE 454 GM JAR TP SCH ×2 (08:59→20:10)
[2016-10-05] MEDS: OCUSOFT LID SCRUB TP SCH ×2 (08:59→17:00)
[2016-10-05] MEDS: HYDROGEN PEROXIDE 480 ML BOTTLE TP SCH ×2 (08:59→20:10)
[2016-10-05] MEDS: SERTRALINE HCL 25 MG TABLET GT SCH (08:59)
[2016-10-05 20:03] VITALS: BP 107/82
[2016-10-06] MEDS: SUCRALFATE 1 G/10 ML UDC GT SCH ×6 (00:11→20:21)
[2016-10-06] MEDS: IPRATROPIUM NEB FS 0.5 MG/2.5 ML AMPUL.NEB IH SCH ×4 (01:30→20:28)
[2016-10-06] MEDS: ALBUTEROL FS 2.5 MG/0.5 ML VIAL.NEB NEB SCH ×4 (01:30→20:28)
[2016-10-06] MEDS: POLYVINYL ALCOHOL 15 ML BOTTLE EACHEYE SCH ×3 (05:35→20:21)
[2016-10-06] MEDS: FIBERSOURCE HN 1,000 ML BOTTLE GT PRN (05:35)
[2016-10-06] MEDS: OMEPRAZOLE 20 MG CAPSULE.DR GT SCH (05:35)
[2016-10-06 09:11] VITALS: BP 108/64
[2016-10-06] MEDS: MVI/MINERALS LIQUID (CEROVITE) GT SCH (09:54)
[2016-10-06] MEDS: ASCORBIC ACID 500 MG TABLET GT SCH (09:54)
[2016-10-06] MEDS: SERTRALINE HCL 25 MG TABLET GT SCH (09:54)
[2016-10-06] MEDS: PROSOURCE / PROSTAT (PYXIS) 30 ML UDC GT SCH (09:54)
[2016-10-06] MEDS: MINERAL OIL/PETROLATUM,WHITE 454 GM JAR TP SCH ×2 (09:55→20:22)
[2016-10-06] MEDS: Z GUARD REMEDY 4 OZ OINT TP SCH ×2 (09:55→20:22)
[2016-10-06] MEDS: OCUSOFT LID SCRUB TP SCH ×2 (09:55→17:27)
[2016-10-06] MEDS: HYDROGEN PEROXIDE 480 ML BOTTLE TP SCH ×2 (09:55→20:22)
[2016-10-06] MEDS: CHLORHEXIDINE GLUCONATE 15 ML UDC MM SCH ×2 (09:55→17:27)
[2016-10-06] MEDS: NEOMY SULF/BACITRAC ZN/POLY 15 GM TUBE TP SCH (12:25)
[2016-10-06 20:02] VITALS: BP 99/65
[2016-10-07] MEDS: SUCRALFATE 1 G/10 ML UDC GT SCH ×6 (00:12→20:11)
[2016-10-07] MEDS: IPRATROPIUM NEB FS 0.5 MG/2.5 ML AMPUL.NEB IH SCH ×4 (01:30→20:24)
[2016-10-07] MEDS: ALBUTEROL FS 2.5 MG/0.5 ML VIAL.NEB NEB SCH ×4 (01:30→20:24)
[2016-10-07] MEDS: POLYVINYL ALCOHOL 15 ML BOTTLE EACHEYE SCH ×3 (05:18→20:11)
[2016-10-07] MEDS: OMEPRAZOLE 20 MG CAPSULE.DR GT SCH (05:18)
[2016-10-07 08:00] VITALS: BP 101/59
[2016-10-07] MEDS: OCUSOFT LID SCRUB TP SCH ×2 (09:17→17:33)
[2016-10-07] MEDS: CHLORHEXIDINE GLUCONATE 15 ML UDC MM SCH ×2 (09:17→17:33)
[2016-10-07] MEDS: MVI/MINERALS LIQUID (CEROVITE) GT SCH (09:17)
[2016-10-07] MEDS: SERTRALINE HCL 25 MG TABLET GT SCH (09:17)
[2016-10-07] MEDS: MINERAL OIL/PETROLATUM,WHITE 454 GM JAR TP SCH ×2 (09:17→20:11)
[2016-10-07] MEDS: ASCORBIC ACID 500 MG TABLET GT SCH (09:17)
[2016-10-07] MEDS: PROSOURCE / PROSTAT (PYXIS) 30 ML UDC GT SCH (09:17)
[2016-10-07] MEDS: HYDROGEN PEROXIDE 480 ML BOTTLE TP SCH ×2 (09:18→20:11)
[2016-10-07] MEDS: Z GUARD REMEDY 4 OZ OINT TP SCH ×2 (09:18→20:11)
[2016-10-07 19:50] VITALS: BP 105/61
[2016-10-07] MEDS: FIBERSOURCE HN 1,000 ML BOTTLE GT PRN (23:25)
[2016-10-08] MEDS: ALBUTEROL FS 2.5 MG/0.5 ML VIAL.NEB NEB SCH ×4 (01:56→19:39)
[2016-10-08] MEDS: IPRATROPIUM NEB FS 0.5 MG/2.5 ML AMPUL.NEB IH SCH ×4 (01:56→19:39)
[2016-10-08] MEDS: POLYVINYL ALCOHOL 15 ML BOTTLE EACHEYE SCH ×3 (05:17→20:37)
[2016-10-08] MEDS: SUCRALFATE 1 G/10 ML UDC GT SCH ×6 (05:17→20:37)
[2016-10-08] MEDS: OMEPRAZOLE 20 MG CAPSULE.DR GT SCH (05:17)
[2016-10-08 07:31] VITALS: BP 106/62
[2016-10-08] MEDS: OCUSOFT LID SCRUB TP SCH ×2 (09:00→17:00)
[2016-10-08] MEDS: CHLORHEXIDINE GLUCONATE 15 ML UDC MM SCH ×2 (09:00→17:00)
[2016-10-08] MEDS: SERTRALINE HCL 25 MG TABLET GT SCH (09:02)
[2016-10-08] MEDS: MVI/MINERALS LIQUID (CEROVITE) GT SCH (09:02)
[2016-10-08] MEDS: PROSOURCE / PROSTAT (PYXIS) 30 ML UDC GT SCH (09:02)
[2016-10-08] MEDS: ASCORBIC ACID 500 MG TABLET GT SCH (09:02)
[2016-10-08] MEDS: Z GUARD REMEDY 4 OZ OINT TP SCH ×2 (09:03→20:37)
[2016-10-08] MEDS: MINERAL OIL/PETROLATUM,WHITE 454 GM JAR TP SCH ×2 (09:03→20:37)
[2016-10-08] MEDS: HYDROGEN PEROXIDE 480 ML BOTTLE TP SCH ×2 (09:03→20:37)
[2016-10-08] MEDS: FIBERSOURCE HN 1,000 ML BOTTLE GT PRN (17:25)
[2016-10-08 20:18] VITALS: BP 107/59
[2016-10-08] MEDS: TEMAZEPAM 7.5 MG CAPSULE GT PRN (23:28)
[2016-10-09] MEDS: SUCRALFATE 1 G/10 ML UDC GT SCH ×6 (00:24→20:38)
[2016-10-09] MEDS: ALBUTEROL FS 2.5 MG/0.5 ML VIAL.NEB NEB SCH ×4 (02:15→20:18)
[2016-10-09] MEDS: IPRATROPIUM NEB FS 0.5 MG/2.5 ML AMPUL.NEB IH SCH ×4 (02:15→20:18)
[2016-10-09] MEDS: POLYVINYL ALCOHOL 15 ML BOTTLE EACHEYE SCH ×3 (05:11→20:38)
[2016-10-09] MEDS: OMEPRAZOLE 20 MG CAPSULE.DR GT SCH (05:11)
--- NOTE | 2016-10-09 07:00 | NUR ---
RN NOTES RECEIVED RESIDENT ON BED , STABLE , CONTINUE TO MONITOR . TOLERATING TF WELL , CONTINUE TO TO PROVIDE CARE .
[2016-10-09 07:30] VITALS: BP 97/58
[2016-10-09] MEDS: MVI/MINERALS LIQUID (CEROVITE) GT SCH (08:18)
[2016-10-09] MEDS: SERTRALINE HCL 25 MG TABLET GT SCH (08:18)
[2016-10-09] MEDS: ASCORBIC ACID 500 MG TABLET GT SCH (08:18)
[2016-10-09] MEDS: PROSOURCE / PROSTAT (PYXIS) 30 ML UDC GT SCH (08:18)
[2016-10-09] MEDS: CHLORHEXIDINE GLUCONATE 15 ML UDC MM SCH ×2 (08:18→16:30)
[2016-10-09] MEDS: OCUSOFT LID SCRUB TP SCH ×2 (08:20→16:30)
[2016-10-09] MEDS: MINERAL OIL/PETROLATUM,WHITE 454 GM JAR TP SCH ×2 (08:20→20:38)
[2016-10-09] MEDS: HYDROGEN PEROXIDE 480 ML BOTTLE TP SCH ×2 (08:21→20:38)
[2016-10-09] MEDS: Z GUARD REMEDY 4 OZ OINT TP SCH ×2 (08:21→20:38)
[2016-10-09] MEDS: FIBERSOURCE HN 1,000 ML BOTTLE GT PRN (11:25)
[2016-10-09 19:35] VITALS: BP 101/58
[2016-10-10] MEDS: SUCRALFATE 1 G/10 ML UDC GT SCH ×6 (01:27→21:18)
[2016-10-10] MEDS: ALBUTEROL FS 2.5 MG/0.5 ML VIAL.NEB NEB SCH ×4 (02:17→19:23)
[2016-10-10] MEDS: IPRATROPIUM NEB FS 0.5 MG/2.5 ML AMPUL.NEB IH SCH ×4 (02:17→19:23)
[2016-10-10] MEDS: OMEPRAZOLE 20 MG CAPSULE.DR GT SCH (05:11)
[2016-10-10] MEDS: POLYVINYL ALCOHOL 15 ML BOTTLE EACHEYE SCH ×3 (05:11→21:18)
[2016-10-10] MEDS: SIMETHICONE SUSP 40 MG/0.6 ML BOTTLE GT PRN (05:11)
[2016-10-10] MEDS: FIBERSOURCE HN 1,000 ML BOTTLE GT PRN ×2 (05:11→18:54)
[2016-10-10 08:07] VITALS: BP 93/56
[2016-10-10] MEDS: MVI/MINERALS LIQUID (CEROVITE) GT SCH (09:00)
[2016-10-10] MEDS: SERTRALINE HCL 25 MG TABLET GT SCH (09:00)
[2016-10-10] MEDS: PROSOURCE / PROSTAT (PYXIS) 30 ML UDC GT SCH (09:00)
[2016-10-10] MEDS: ASCORBIC ACID 500 MG TABLET GT SCH (09:00)
[2016-10-10] MEDS: MINERAL OIL/PETROLATUM,WHITE 454 GM JAR TP SCH ×2 (09:00→21:18)
[2016-10-10] MEDS: Z GUARD REMEDY 4 OZ OINT TP SCH ×2 (09:00→21:19)
[2016-10-10] MEDS: CHLORHEXIDINE GLUCONATE 15 ML UDC MM SCH ×2 (09:00→17:43)
[2016-10-10] MEDS: OCUSOFT LID SCRUB TP SCH ×2 (09:00→17:00)
[2016-10-10] MEDS: HYDROGEN PEROXIDE 480 ML BOTTLE TP SCH ×2 (11:42→21:18)
[2016-10-10 20:54] VITALS: BP 102/62
[2016-10-11] MEDS: SUCRALFATE 1 G/10 ML UDC GT SCH ×6 (00:32→21:49)
[2016-10-11] MEDS: IPRATROPIUM NEB FS 0.5 MG/2.5 ML AMPUL.NEB IH SCH ×4 (02:13→18:53)
[2016-10-11] MEDS: ALBUTEROL FS 2.5 MG/0.5 ML VIAL.NEB NEB SCH ×4 (02:13→18:53)
[2016-10-11] MEDS: POLYVINYL ALCOHOL 15 ML BOTTLE EACHEYE SCH ×3 (05:35→21:49)
[2016-10-11] MEDS: OMEPRAZOLE 20 MG CAPSULE.DR GT SCH (05:36)
[2016-10-11] MEDS: FIBERSOURCE HN 1,000 ML BOTTLE GT PRN ×2 (07:22→21:51)
[2016-10-11 07:37] VITALS: BP 135/79
[2016-10-11] MEDS: HYDROGEN PEROXIDE 480 ML BOTTLE TP SCH ×2 (09:00→21:49)
[2016-10-11] MEDS: SERTRALINE HCL 25 MG TABLET GT SCH (09:00)
[2016-10-11] MEDS: ASCORBIC ACID 500 MG TABLET GT SCH (09:00)
[2016-10-11] MEDS: OCUSOFT LID SCRUB TP SCH ×2 (09:00→17:00)
[2016-10-11] MEDS: MVI/MINERALS LIQUID (CEROVITE) GT SCH (09:00)
[2016-10-11] MEDS: Z GUARD REMEDY 4 OZ OINT TP SCH ×2 (09:00→21:50)
[2016-10-11] MEDS: PROSOURCE / PROSTAT (PYXIS) 30 ML UDC GT SCH (09:00)
[2016-10-11] MEDS: MINERAL OIL/PETROLATUM,WHITE 454 GM JAR TP SCH ×2 (09:00→21:49)
[2016-10-11] MEDS: CHLORHEXIDINE GLUCONATE 15 ML UDC MM SCH ×2 (09:00→17:00)
[2016-10-11 19:51] VITALS: BP 104/52
[2016-10-12] MEDS: SUCRALFATE 1 G/10 ML UDC GT SCH ×6 (00:35→21:00)
[2016-10-12] MEDS: ALBUTEROL FS 2.5 MG/0.5 ML VIAL.NEB NEB SCH ×4 (02:20→20:26)
[2016-10-12] MEDS: IPRATROPIUM NEB FS 0.5 MG/2.5 ML AMPUL.NEB IH SCH ×4 (02:20→20:26)
[2016-10-12] MEDS: OMEPRAZOLE 20 MG CAPSULE.DR GT SCH (05:11)
[2016-10-12] MEDS: POLYVINYL ALCOHOL 15 ML BOTTLE EACHEYE SCH ×3 (05:11→21:00)
[2016-10-12 07:36] VITALS: BP 98/58
[2016-10-12] MEDS: CHLORHEXIDINE GLUCONATE 15 ML UDC MM SCH ×2 (09:00→17:00)
[2016-10-12] MEDS: OCUSOFT LID SCRUB TP SCH ×2 (09:00→17:00)
[2016-10-12] MEDS: PROSOURCE / PROSTAT (PYXIS) 30 ML UDC GT SCH (09:15)
[2016-10-12] MEDS: HYDROGEN PEROXIDE 480 ML BOTTLE TP SCH ×2 (09:15→21:00)
[2016-10-12] MEDS: Z GUARD REMEDY 4 OZ OINT TP SCH ×2 (09:15→21:00)
[2016-10-12] MEDS: ASCORBIC ACID 500 MG TABLET GT SCH (09:15)
[2016-10-12] MEDS: SERTRALINE HCL 25 MG TABLET GT SCH (09:15)
[2016-10-12] MEDS: MVI/MINERALS LIQUID (CEROVITE) GT SCH (09:15)
[2016-10-12] MEDS: MINERAL OIL/PETROLATUM,WHITE 454 GM JAR TP SCH ×2 (09:15→21:00)
[2016-10-12] MEDS: FIBERSOURCE HN 1,000 ML BOTTLE GT PRN (14:32)
[2016-10-12 19:36] VITALS: BP 102/63
[2016-10-13] MEDS: SUCRALFATE 1 G/10 ML UDC GT SCH ×6 (00:56→20:16)
[2016-10-13] MEDS: FIBERSOURCE HN 1,000 ML BOTTLE GT PRN (00:56)
[2016-10-13] MEDS: ALBUTEROL FS 2.5 MG/0.5 ML VIAL.NEB NEB SCH ×4 (01:16→19:55)
[2016-10-13] MEDS: IPRATROPIUM NEB FS 0.5 MG/2.5 ML AMPUL.NEB IH SCH ×4 (01:16→19:55)
[2016-10-13] MEDS: POLYVINYL ALCOHOL 15 ML BOTTLE EACHEYE SCH ×3 (05:15→20:16)
[2016-10-13] MEDS: OMEPRAZOLE 20 MG CAPSULE.DR GT SCH (05:15)
[2016-10-13 07:55] VITALS: BP 115/60
[2016-10-13] MEDS: HYDROGEN PEROXIDE 480 ML BOTTLE TP SCH ×2 (09:00→20:16)
[2016-10-13] MEDS: Z GUARD REMEDY 4 OZ OINT TP SCH ×2 (09:00→20:16)
[2016-10-13] MEDS: CHLORHEXIDINE GLUCONATE 15 ML UDC MM SCH ×2 (09:42→16:48)
[2016-10-13] MEDS: MVI/MINERALS LIQUID (CEROVITE) GT SCH (09:42)
[2016-10-13] MEDS: MINERAL OIL/PETROLATUM,WHITE 454 GM JAR TP SCH ×2 (09:42→20:16)
[2016-10-13] MEDS: SERTRALINE HCL 25 MG TABLET GT SCH (09:42)
[2016-10-13] MEDS: PROSOURCE / PROSTAT (PYXIS) 30 ML UDC GT SCH (09:42)
[2016-10-13] MEDS: ASCORBIC ACID 500 MG TABLET GT SCH (09:42)
[2016-10-13] MEDS: OCUSOFT LID SCRUB TP SCH ×2 (09:43→16:48)
[2016-10-13 19:42] VITALS: BP 104/59
[2016-10-14] MEDS: SUCRALFATE 1 G/10 ML UDC GT SCH ×6 (00:34→20:18)
[2016-10-14] MEDS: ALBUTEROL FS 2.5 MG/0.5 ML VIAL.NEB NEB SCH ×4 (01:43→19:30)
[2016-10-14] MEDS: IPRATROPIUM NEB FS 0.5 MG/2.5 ML AMPUL.NEB IH SCH ×4 (01:43→19:30)
[2016-10-14] MEDS: OMEPRAZOLE 20 MG CAPSULE.DR GT SCH (05:27)
[2016-10-14] MEDS: POLYVINYL ALCOHOL 15 ML BOTTLE EACHEYE SCH ×3 (05:27→20:18)
[2016-10-14 08:21] VITALS: BP 99/61
[2016-10-14] MEDS: Z GUARD REMEDY 4 OZ OINT TP SCH ×2 (09:00→20:19)
[2016-10-14] MEDS: MVI/MINERALS LIQUID (CEROVITE) GT SCH (09:59)
[2016-10-14] MEDS: PROSOURCE / PROSTAT (PYXIS) 30 ML UDC GT SCH (09:59)
[2016-10-14] MEDS: SERTRALINE HCL 25 MG TABLET GT SCH (09:59)
[2016-10-14] MEDS: OCUSOFT LID SCRUB TP SCH ×2 (09:59→17:00)
[2016-10-14] MEDS: ASCORBIC ACID 500 MG TABLET GT SCH (09:59)
[2016-10-14] MEDS: CHLORHEXIDINE GLUCONATE 15 ML UDC MM SCH ×2 (09:59→17:00)
[2016-10-14] MEDS: HYDROGEN PEROXIDE 480 ML BOTTLE TP SCH ×2 (09:59→20:19)
[2016-10-14] MEDS: MINERAL OIL/PETROLATUM,WHITE 454 GM JAR TP SCH ×2 (09:59→20:19)
[2016-10-14] MEDS: FIBERSOURCE HN 1,000 ML BOTTLE GT PRN (15:15)
[2016-10-14 19:59] VITALS: BP 99/61
[2016-10-15] MEDS: SUCRALFATE 1 G/10 ML UDC GT SCH ×6 (00:14→20:25)
[2016-10-15] MEDS: IPRATROPIUM NEB FS 0.5 MG/2.5 ML AMPUL.NEB IH SCH ×4 (01:20→19:46)
[2016-10-15] MEDS: ALBUTEROL FS 2.5 MG/0.5 ML VIAL.NEB NEB SCH ×4 (01:20→19:46)
[2016-10-15] MEDS: POLYVINYL ALCOHOL 15 ML BOTTLE EACHEYE SCH ×3 (05:27→20:25)
[2016-10-15] MEDS: FIBERSOURCE HN 1,000 ML BOTTLE GT PRN ×2 (05:27→21:45)
[2016-10-15] MEDS: OMEPRAZOLE 20 MG CAPSULE.DR GT SCH (05:27)
[2016-10-15 07:59] VITALS: BP 104/64
[2016-10-15] MEDS: MVI/MINERALS LIQUID (CEROVITE) GT SCH (09:21)
[2016-10-15] MEDS: ASCORBIC ACID 500 MG TABLET GT SCH (09:21)
[2016-10-15] MEDS: SERTRALINE HCL 25 MG TABLET GT SCH (09:21)
[2016-10-15] MEDS: PROSOURCE / PROSTAT (PYXIS) 30 ML UDC GT SCH (09:21)
[2016-10-15] MEDS: CHLORHEXIDINE GLUCONATE 15 ML UDC MM SCH ×2 (09:21→17:52)
[2016-10-15] MEDS: Z GUARD REMEDY 4 OZ OINT TP SCH ×2 (09:22→20:25)
[2016-10-15] MEDS: HYDROGEN PEROXIDE 480 ML BOTTLE TP SCH ×2 (09:22→20:25)
[2016-10-15] MEDS: MINERAL OIL/PETROLATUM,WHITE 454 GM JAR TP SCH ×2 (09:22→20:25)
[2016-10-15] MEDS: OCUSOFT LID SCRUB TP SCH ×2 (09:22→17:52)
[2016-10-15 19:56] VITALS: BP 98/57
[2016-10-16] MEDS: SUCRALFATE 1 G/10 ML UDC GT SCH ×6 (00:46→21:05)
[2016-10-16] MEDS: IPRATROPIUM NEB FS 0.5 MG/2.5 ML AMPUL.NEB IH SCH ×4 (02:13→19:48)
[2016-10-16] MEDS: ALBUTEROL FS 2.5 MG/0.5 ML VIAL.NEB NEB SCH ×4 (02:13→19:48)
[2016-10-16] MEDS: OMEPRAZOLE 20 MG CAPSULE.DR GT SCH (05:12)
[2016-10-16] MEDS: POLYVINYL ALCOHOL 15 ML BOTTLE EACHEYE SCH ×3 (05:12→21:05)
[2016-10-16 07:33] VITALS: BP 107/62
[2016-10-16] MEDS: SERTRALINE HCL 25 MG TABLET GT SCH (08:56)
[2016-10-16] MEDS: MVI/MINERALS LIQUID (CEROVITE) GT SCH (08:56)
[2016-10-16] MEDS: PROSOURCE / PROSTAT (PYXIS) 30 ML UDC GT SCH (08:56)
[2016-10-16] MEDS: ASCORBIC ACID 500 MG TABLET GT SCH (08:56)
[2016-10-16] MEDS: CHLORHEXIDINE GLUCONATE 15 ML UDC MM SCH ×2 (08:57→17:00)
[2016-10-16] MEDS: Z GUARD REMEDY 4 OZ OINT TP SCH ×2 (08:58→21:05)
[2016-10-16] MEDS: OCUSOFT LID SCRUB TP SCH ×2 (08:58→17:00)
[2016-10-16] MEDS: HYDROGEN PEROXIDE 480 ML BOTTLE TP SCH ×2 (08:58→21:05)
[2016-10-16] MEDS: MINERAL OIL/PETROLATUM,WHITE 454 GM JAR TP SCH ×2 (08:58→21:05)
--- NOTE | 2016-10-16 15:02 | NUR ---
RT RECEIVED PT TRACHED WITH SHILEY 6XLT CUFFED ON VENT WITH SETTINGS PER MD ORDER. SERVICE PROMOTER SALESPERSON DONE. BILAT RHONCHI BREATH SOUNDS ON AUSCULTATION. SPARE TRACH AND AMBU BAG AT BEDSIDE. ALARMS ON AND SET PROPERLY. TRACH SECURED AND AIRWAY PATENT. SUCTIONED MOD AMOUNTS OF THICK, YELLOW SECRETIONS. TX'S GIVEN ORDERED AND TOLERATED WELL. NO ADVERSE REACTIONS OBSERVED. WILL CONTINUE TO MONITOR THE PATIENT FOR ANY CHANGE OF CONDITION. Addendum: 10/16/16 at 1802 by IVAN HALL RT Amended: Links added.
[2016-10-16 22:51] VITALS: BP 97/68
[2016-10-17] MEDS: SUCRALFATE 1 G/10 ML UDC GT SCH ×6 (00:19→21:44)
[2016-10-17] MEDS: IPRATROPIUM NEB FS 0.5 MG/2.5 ML AMPUL.NEB IH SCH ×4 (01:55→19:18)
[2016-10-17] MEDS: ALBUTEROL FS 2.5 MG/0.5 ML VIAL.NEB NEB SCH ×4 (01:55→19:18)
[2016-10-17] MEDS: OMEPRAZOLE 20 MG CAPSULE.DR GT SCH (05:08)
[2016-10-17] MEDS: POLYVINYL ALCOHOL 15 ML BOTTLE EACHEYE SCH ×3 (05:08→21:44)
[2016-10-17] MEDS: FIBERSOURCE HN 1,000 ML BOTTLE GT PRN ×2 (06:17→21:45)
[2016-10-17 07:41] VITALS: BP 108/62
[2016-10-17] MEDS: MVI/MINERALS LIQUID (CEROVITE) GT SCH (08:45)
[2016-10-17] MEDS: SERTRALINE HCL 25 MG TABLET GT SCH (08:47)
[2016-10-17] MEDS: PROSOURCE / PROSTAT (PYXIS) 30 ML UDC GT SCH (08:47)
[2016-10-17] MEDS: ASCORBIC ACID 500 MG TABLET GT SCH (08:47)
[2016-10-17] MEDS: HYDROGEN PEROXIDE 480 ML BOTTLE TP SCH ×2 (08:49→21:44)
[2016-10-17] MEDS: OCUSOFT LID SCRUB TP SCH ×2 (08:49→17:49)
[2016-10-17] MEDS: CHLORHEXIDINE GLUCONATE 15 ML UDC MM SCH ×2 (08:49→17:49)
[2016-10-17] MEDS: MINERAL OIL/PETROLATUM,WHITE 454 GM JAR TP SCH ×2 (08:49→21:44)
[2016-10-17] MEDS: Z GUARD REMEDY 4 OZ OINT TP SCH ×2 (08:49→21:44)
[2016-10-18 00:57] VITALS: BP 94/58
[2016-10-18] MEDS: SUCRALFATE 1 G/10 ML UDC GT SCH ×6 (01:05→21:00)
[2016-10-18] MEDS: IPRATROPIUM NEB FS 0.5 MG/2.5 ML AMPUL.NEB IH SCH ×4 (01:54→19:33)
[2016-10-18] MEDS: ALBUTEROL FS 2.5 MG/0.5 ML VIAL.NEB NEB SCH ×4 (01:54→19:33)
[2016-10-18] MEDS: POLYVINYL ALCOHOL 15 ML BOTTLE EACHEYE SCH ×4 (05:34→21:00)
[2016-10-18] MEDS: OMEPRAZOLE 20 MG CAPSULE.DR GT SCH (05:34)
[2016-10-18] MEDS: MVI/MINERALS LIQUID (CEROVITE) GT SCH (08:34)
[2016-10-18] MEDS: PROSOURCE / PROSTAT (PYXIS) 30 ML UDC GT SCH (08:34)
[2016-10-18] MEDS: ASCORBIC ACID 500 MG TABLET GT SCH (08:34)
[2016-10-18] MEDS: SERTRALINE HCL 25 MG TABLET GT SCH (08:38)
[2016-10-18] MEDS: HYDROGEN PEROXIDE 480 ML BOTTLE TP SCH ×2 (09:00→21:00)
[2016-10-18] MEDS: Z GUARD REMEDY 4 OZ OINT TP SCH ×2 (09:00→21:00)
[2016-10-18] MEDS: OCUSOFT LID SCRUB TP SCH ×2 (09:00→16:30)
[2016-10-18] MEDS: CHLORHEXIDINE GLUCONATE 15 ML UDC MM SCH ×2 (09:00→16:30)
[2016-10-18] MEDS: MINERAL OIL/PETROLATUM,WHITE 454 GM JAR TP SCH ×2 (09:00→21:00)
[2016-10-18 19:21] VITALS: BP 98/55
[2016-10-18] MEDS: ZINC OXIDE 30 GM TUBE TP SCH (21:00)
[2016-10-19] MEDS: SUCRALFATE 1 G/10 ML UDC GT SCH ×6 (01:41→21:11)
[2016-10-19] MEDS: IPRATROPIUM NEB FS 0.5 MG/2.5 ML AMPUL.NEB IH SCH ×4 (01:52→19:07)
[2016-10-19] MEDS: ALBUTEROL FS 2.5 MG/0.5 ML VIAL.NEB NEB SCH ×4 (01:52→19:07)
[2016-10-19] MEDS: OMEPRAZOLE 20 MG CAPSULE.DR GT SCH (05:34)
[2016-10-19] MEDS: POLYVINYL ALCOHOL 15 ML BOTTLE EACHEYE SCH ×3 (05:34→21:11)
[2016-10-19 08:00] VITALS: BP 97/55
[2016-10-19] MEDS: CHLORHEXIDINE GLUCONATE 15 ML UDC MM SCH ×2 (09:42→17:44)
[2016-10-19] MEDS: SERTRALINE HCL 25 MG TABLET GT SCH (09:42)
[2016-10-19] MEDS: MINERAL OIL/PETROLATUM,WHITE 454 GM JAR TP SCH ×2 (09:42→21:12)
[2016-10-19] MEDS: OCUSOFT LID SCRUB TP SCH ×2 (09:42→17:44)
[2016-10-19] MEDS: PROSOURCE / PROSTAT (PYXIS) 30 ML UDC GT SCH (09:42)
[2016-10-19] MEDS: ASCORBIC ACID 500 MG TABLET GT SCH (09:42)
[2016-10-19] MEDS: MVI/MINERALS LIQUID (CEROVITE) GT SCH (09:42)
[2016-10-19] MEDS: HYDROGEN PEROXIDE 480 ML BOTTLE TP SCH ×2 (09:43→21:12)
[2016-10-19] MEDS: ZINC OXIDE 30 GM TUBE TP SCH ×2 (09:43→21:12)
[2016-10-19] MEDS: Z GUARD REMEDY 4 OZ OINT TP SCH ×2 (09:43→21:12)
[2016-10-19 20:40] VITALS: BP 109/58
--- NOTE | 2016-10-19 20:49 | NUR ---
Patient received breathing treatment as ordered and tolerated well. No adverse reactions noted. Breath sounds equal bilateral. Vent plugged into red outlet and alarms set and functioning. Ambu bag at the bed side.
[2016-10-20] MEDS: ALBUTEROL FS 2.5 MG/0.5 ML VIAL.NEB NEB SCH ×4 (00:57→20:16)
[2016-10-20] MEDS: IPRATROPIUM NEB FS 0.5 MG/2.5 ML AMPUL.NEB IH SCH ×4 (00:57→20:16)
[2016-10-20] MEDS: SUCRALFATE 1 G/10 ML UDC GT SCH ×6 (01:00→20:15)
[2016-10-20] MEDS: POLYVINYL ALCOHOL 15 ML BOTTLE EACHEYE SCH ×3 (05:12→20:15)
[2016-10-20] MEDS: OMEPRAZOLE 20 MG CAPSULE.DR GT SCH (05:30)
[2016-10-20 08:00] VITALS: BP 93/50
[2016-10-20] MEDS: Z GUARD REMEDY 4 OZ OINT TP SCH ×2 (09:00→20:16)
[2016-10-20] MEDS: CHLORHEXIDINE GLUCONATE 15 ML UDC MM SCH ×2 (09:00→17:20)
[2016-10-20] MEDS: MVI/MINERALS LIQUID (CEROVITE) GT SCH (09:00)
[2016-10-20] MEDS: PROSOURCE / PROSTAT (PYXIS) 30 ML UDC GT SCH (09:00)
[2016-10-20] MEDS: ASCORBIC ACID 500 MG TABLET GT SCH (09:00)
[2016-10-20] MEDS: ZINC OXIDE 30 GM TUBE TP SCH ×2 (09:00→20:16)
[2016-10-20] MEDS: SERTRALINE HCL 25 MG TABLET GT SCH (09:00)
[2016-10-20] MEDS: OCUSOFT LID SCRUB TP SCH ×2 (09:00→17:20)
[2016-10-20] MEDS: MINERAL OIL/PETROLATUM,WHITE 454 GM JAR TP SCH ×2 (09:00→20:15)
[2016-10-20] MEDS: HYDROGEN PEROXIDE 480 ML BOTTLE TP SCH ×2 (09:00→20:15)
--- NOTE | 2016-10-20 15:45 | NUR ---
AWAKE ALERT,RESPONSIVE TO PAIN. CONTINUE ON VENTILATOR SUPPORT. VENTILATOR ALARM ARE AUDIBLE AND FUNCTIONAL.POWER PLUGGED TO RED WALL OUTLET. BLAYNE DAY Addendum: 10/20/16 at 1644 by CAROLE AUSTIN RT Amended: Links added.
--- NOTE | 2016-10-20 19:30 | NUR ---
RN NOTES Seen and examined by Isidra Ayala with NNO.
[2016-10-20 19:41] VITALS: BP 108/67
[2016-10-21] MEDS: FIBERSOURCE HN 1,000 ML BOTTLE GT PRN (00:44)
[2016-10-21] MEDS: SUCRALFATE 1 G/10 ML UDC GT SCH ×6 (00:44→20:39)
[2016-10-21] MEDS: IPRATROPIUM NEB FS 0.5 MG/2.5 ML AMPUL.NEB IH SCH ×4 (01:57→20:22)
[2016-10-21] MEDS: ALBUTEROL FS 2.5 MG/0.5 ML VIAL.NEB NEB SCH ×4 (01:57→20:22)
[2016-10-21] MEDS: POLYVINYL ALCOHOL 15 ML BOTTLE EACHEYE SCH ×3 (05:14→20:39)
[2016-10-21] MEDS: OMEPRAZOLE 20 MG CAPSULE.DR GT SCH (05:15)
[2016-10-21 08:00] VITALS: BP 102/63
[2016-10-21] MEDS: PROSOURCE / PROSTAT (PYXIS) 30 ML UDC GT SCH (09:00)
[2016-10-21] MEDS: OCUSOFT LID SCRUB TP SCH ×2 (09:00→17:31)
[2016-10-21] MEDS: HYDROGEN PEROXIDE 480 ML BOTTLE TP SCH ×2 (09:00→20:39)
[2016-10-21] MEDS: Z GUARD REMEDY 4 OZ OINT TP SCH ×2 (09:00→20:39)
[2016-10-21] MEDS: ASCORBIC ACID 500 MG TABLET GT SCH (09:00)
[2016-10-21] MEDS: MVI/MINERALS LIQUID (CEROVITE) GT SCH (09:00)
[2016-10-21] MEDS: CHLORHEXIDINE GLUCONATE 15 ML UDC MM SCH ×2 (09:00→17:31)
[2016-10-21] MEDS: SERTRALINE HCL 25 MG TABLET GT SCH (09:00)
[2016-10-21] MEDS: ZINC OXIDE 30 GM TUBE TP SCH ×2 (09:00→20:39)
[2016-10-21] MEDS: MINERAL OIL/PETROLATUM,WHITE 454 GM JAR TP SCH ×2 (09:00→20:39)
--- NOTE | 2016-10-21 10:00 | NUR ---
Seen and examined by CHINTAN Allen given at this time.
--- NOTE | 2016-10-21 15:10 | NUR ---
RT report: PT. 76 Y MALE REMAIN TRACHED ON VENT WITH SETTINGS PER MD ORDER. L TACKER DONE. BILATERALLY RHONCHI BREATH SOUNDS ON AUSCULTATION. AMBU BAG AND SPARE TRACH AT BEDSIDE. ALARMS ON AND FUNCTIONING PROPERLY. TRACH SECURED PT. SUCTIONED FOR SMALL AMOUNTS OF THICK, WHITE/NARAYAN SECRETIONS. BREATHING TX'S GIVEN ORDERED AND TOLERATED WELL. NO ADVERSE REACTIONS OBSERVED. NO SIGNS OF DISTRESS NOTED THROUGHOUT SHIFT. WILL CONTINUE TO MONITOR. REPORT WILL BE PASS TO PM SHIFT. Addendum: 10/21/16 at 1510 by MISSY HEATH RT Amended: Links added.
[2016-10-21 20:34] VITALS: BP 130/66
[2016-10-22] MEDS: SUCRALFATE 1 G/10 ML UDC GT SCH ×6 (01:04→20:19)
[2016-10-22] MEDS: ALBUTEROL FS 2.5 MG/0.5 ML VIAL.NEB NEB SCH ×4 (01:59→20:26)
[2016-10-22] MEDS: IPRATROPIUM NEB FS 0.5 MG/2.5 ML AMPUL.NEB IH SCH ×4 (01:59→20:26)
[2016-10-22] MEDS: POLYVINYL ALCOHOL 15 ML BOTTLE EACHEYE SCH ×3 (05:09→20:19)
[2016-10-22] MEDS: OMEPRAZOLE 20 MG CAPSULE.DR GT SCH (05:09)
[2016-10-22 07:29] VITALS: BP 112/69
[2016-10-22] MEDS: MVI/MINERALS LIQUID (CEROVITE) GT SCH (09:00)
[2016-10-22] MEDS: CHLORHEXIDINE GLUCONATE 15 ML UDC MM SCH ×2 (09:00→16:36)
[2016-10-22] MEDS: ASCORBIC ACID 500 MG TABLET GT SCH (09:00)
[2016-10-22] MEDS: OCUSOFT LID SCRUB TP SCH ×2 (09:00→16:36)
[2016-10-22] MEDS: PROSOURCE / PROSTAT (PYXIS) 30 ML UDC GT SCH (09:00)
[2016-10-22] MEDS: MINERAL OIL/PETROLATUM,WHITE 454 GM JAR TP SCH ×2 (09:00→20:19)
[2016-10-22] MEDS: SERTRALINE HCL 25 MG TABLET GT SCH (09:00)
[2016-10-22] MEDS: ZINC OXIDE 30 GM TUBE TP SCH ×2 (09:01→20:19)
[2016-10-22] MEDS: HYDROGEN PEROXIDE 480 ML BOTTLE TP SCH ×2 (09:01→20:19)
[2016-10-22] MEDS: Z GUARD REMEDY 4 OZ OINT TP SCH ×2 (09:01→20:19)
[2016-10-22 20:13] VITALS: BP 106/60
[2016-10-22] MEDS: FIBERSOURCE HN 1,000 ML BOTTLE GT PRN (22:33)
[2016-10-23] MEDS: SUCRALFATE 1 G/10 ML UDC GT SCH ×6 (00:27→21:20)
[2016-10-23] MEDS: IPRATROPIUM NEB FS 0.5 MG/2.5 ML AMPUL.NEB IH SCH ×4 (02:14→20:24)
[2016-10-23] MEDS: ALBUTEROL FS 2.5 MG/0.5 ML VIAL.NEB NEB SCH ×4 (02:14→20:24)
[2016-10-23] MEDS: POLYVINYL ALCOHOL 15 ML BOTTLE EACHEYE SCH ×3 (05:08→21:20)
[2016-10-23] MEDS: OMEPRAZOLE 20 MG CAPSULE.DR GT SCH (05:09)
[2016-10-23 07:05] LABS: BASOPHILS % (AUTO) 0.2 % (0.0-2.0); EOSINOPHILS # (AUTO) 0.2 /CMM (0.0-0.7); EOSINOPHILS % (AUTO) 3.1 % (0.0-6.0); HEMATOCRIT 25 % (39-51); HEMOGLOBIN 8.5 g/dL (13.5-17.5); LYMPHOCYTES # (AUTO) 0.8 /CMM (0.8-4.8); LYMPHOCYTES % (AUTO) 13.4 % (20.0-44.0); MEAN CORPUSCULAR HEMOGLOBIN 29 PG (26.0-33.0); MEAN CORPUSCULAR HGB CONC 34 g/dl (31.0-36.0); MEAN CORPUSCULAR VOLUME 85 fL (80-96); MONOCYTES # (AUTO) 0.6 /CMM (0.1-1.30); MONOCYTES % (AUTO) 8.9 % (2.0-12.0); NEUTROPHILS # (AUTO) 4.7 /CMM (1.8-8.9); NEUTROPHILS % (AUTO) 74.4 % (43.0-81.0); PLATELET COUNT (AUTO) 273 /CMM (150-450); RDW COEFFICIENT OF VARIATION 16.5 (11.5-15.0); RED BLOOD CELL COUNT(AUTO) 2.97 MIL/uL (4.5-6.0); WHITE BLOOD COUNT (AUTO) 6.3 K/uL (4.3-11.0)
[2016-10-23 07:39] VITALS: BP 119/66
[2016-10-23] MEDS: OCUSOFT LID SCRUB TP SCH ×2 (09:00→17:00)
[2016-10-23] MEDS: MINERAL OIL/PETROLATUM,WHITE 454 GM JAR TP SCH ×2 (09:24→21:20)
[2016-10-23] MEDS: SERTRALINE HCL 25 MG TABLET GT SCH (09:24)
[2016-10-23] MEDS: PROSOURCE / PROSTAT (PYXIS) 30 ML UDC GT SCH (09:24)
[2016-10-23] MEDS: ASCORBIC ACID 500 MG TABLET GT SCH (09:24)
[2016-10-23] MEDS: CHLORHEXIDINE GLUCONATE 15 ML UDC MM SCH ×2 (09:24→17:48)
[2016-10-23] MEDS: HYDROGEN PEROXIDE 480 ML BOTTLE TP SCH ×2 (09:24→21:20)
[2016-10-23] MEDS: Z GUARD REMEDY 4 OZ OINT TP SCH ×2 (09:24→21:20)
[2016-10-23] MEDS: MVI/MINERALS LIQUID (CEROVITE) GT SCH (09:24)
[2016-10-23] MEDS: ZINC OXIDE 30 GM TUBE TP SCH ×2 (09:25→21:20)
[2016-10-23] MEDS: NEOMY SULF/BACITRAC ZN/POLY 15 GM TUBE TP SCH (11:00)
[2016-10-23] MEDS: FIBERSOURCE HN 1,000 ML BOTTLE GT PRN (13:51)
--- NOTE | 2016-10-23 14:20 | NUR ---
Seen and examined by Dr Vance with no new order.
--- NOTE | 2016-10-23 15:40 | NUR ---
Seen and examined by Isidra RICCI with no new order. Addendum: 10/23/16 at 1646 by JOSSUE GILLILAND RN Dr Vance reviewed lab result CBC with no order.
[2016-10-23 19:43] VITALS: BP 99/61
[2016-10-24] MEDS: SUCRALFATE 1 G/10 ML UDC GT SCH ×6 (00:43→21:06)
[2016-10-24] MEDS: ALBUTEROL FS 2.5 MG/0.5 ML VIAL.NEB NEB SCH ×4 (02:20→19:36)
[2016-10-24] MEDS: IPRATROPIUM NEB FS 0.5 MG/2.5 ML AMPUL.NEB IH SCH ×4 (02:20→19:36)
[2016-10-24] MEDS: POLYVINYL ALCOHOL 15 ML BOTTLE EACHEYE SCH ×3 (04:56→21:06)
[2016-10-24] MEDS: FIBERSOURCE HN 1,000 ML BOTTLE GT PRN ×2 (04:58→21:07)
[2016-10-24] MEDS: OMEPRAZOLE 20 MG CAPSULE.DR GT SCH (05:58)
[2016-10-24 07:40] VITALS: BP 102/66
[2016-10-24] MEDS: OCUSOFT LID SCRUB TP SCH ×2 (09:00→16:37)
[2016-10-24] MEDS: PROSOURCE / PROSTAT (PYXIS) 30 ML UDC GT SCH (09:29)
[2016-10-24] MEDS: CHLORHEXIDINE GLUCONATE 15 ML UDC MM SCH ×2 (09:29→16:37)
[2016-10-24] MEDS: MVI/MINERALS LIQUID (CEROVITE) GT SCH (09:29)
[2016-10-24] MEDS: SERTRALINE HCL 25 MG TABLET GT SCH (09:29)
[2016-10-24] MEDS: ASCORBIC ACID 500 MG TABLET GT SCH (09:29)
[2016-10-24] MEDS: ZINC OXIDE 30 GM TUBE TP SCH ×2 (09:32→21:06)
[2016-10-24] MEDS: Z GUARD REMEDY 4 OZ OINT TP SCH ×2 (09:32→21:06)
[2016-10-24] MEDS: HYDROGEN PEROXIDE 480 ML BOTTLE TP SCH ×2 (09:32→21:06)
[2016-10-24] MEDS: MINERAL OIL/PETROLATUM,WHITE 454 GM JAR TP SCH ×2 (09:32→21:06)
[2016-10-24 20:38] VITALS: BP 104/55
[2016-10-25] MEDS: SUCRALFATE 1 G/10 ML UDC GT SCH ×6 (00:05→20:47)
[2016-10-25] MEDS: ALBUTEROL FS 2.5 MG/0.5 ML VIAL.NEB NEB SCH ×4 (02:26→18:59)
[2016-10-25] MEDS: IPRATROPIUM NEB FS 0.5 MG/2.5 ML AMPUL.NEB IH SCH ×4 (02:26→18:59)
[2016-10-25] MEDS: OMEPRAZOLE 20 MG CAPSULE.DR GT SCH (05:26)
[2016-10-25] MEDS: POLYVINYL ALCOHOL 15 ML BOTTLE EACHEYE SCH ×3 (05:26→20:47)
[2016-10-25 08:01] VITALS: BP 122/64
[2016-10-25] MEDS: OCUSOFT LID SCRUB TP SCH ×2 (09:00→17:01)
[2016-10-25] MEDS: CHLORHEXIDINE GLUCONATE 15 ML UDC MM SCH ×2 (09:48→17:00)
[2016-10-25] MEDS: MVI/MINERALS LIQUID (CEROVITE) GT SCH (09:48)
[2016-10-25] MEDS: PROSOURCE / PROSTAT (PYXIS) 30 ML UDC GT SCH (09:48)
[2016-10-25] MEDS: ASCORBIC ACID 500 MG TABLET GT SCH (09:48)
[2016-10-25] MEDS: SERTRALINE HCL 25 MG TABLET GT SCH (09:48)
[2016-10-25] MEDS: FIBERSOURCE HN 1,000 ML BOTTLE GT PRN (13:12)
[2016-10-25] MEDS: Z GUARD REMEDY 4 OZ OINT TP SCH ×2 (14:45→20:47)
[2016-10-25] MEDS: MINERAL OIL/PETROLATUM,WHITE 454 GM JAR TP SCH ×2 (14:45→20:47)
[2016-10-25] MEDS: ZINC OXIDE 30 GM TUBE TP SCH ×2 (14:45→20:47)
[2016-10-25] MEDS: HYDROGEN PEROXIDE 480 ML BOTTLE TP SCH ×2 (14:45→20:47)
--- NOTE | 2016-10-25 20:14 | NUR ---
Patient received trached on mechanical vent. Breath sounds equal bilateral. treatment given as ordered and tolerated well. No adverse reactions noted. Vent plugged into red outlet and alarms set and functioning.
[2016-10-25 20:25] VITALS: BP 103/62
[2016-10-26] MEDS: SUCRALFATE 1 G/10 ML UDC GT SCH ×6 (00:12→21:17)
[2016-10-26] MEDS: ALBUTEROL FS 2.5 MG/0.5 ML VIAL.NEB NEB SCH ×4 (00:39→20:13)
[2016-10-26] MEDS: IPRATROPIUM NEB FS 0.5 MG/2.5 ML AMPUL.NEB IH SCH ×4 (00:39→20:13)
[2016-10-26] MEDS: POLYVINYL ALCOHOL 15 ML BOTTLE EACHEYE SCH ×3 (05:39→21:17)
[2016-10-26] MEDS: FIBERSOURCE HN 1,000 ML BOTTLE GT PRN (05:39)
[2016-10-26] MEDS: OMEPRAZOLE 20 MG CAPSULE.DR GT SCH (05:39)
[2016-10-26 07:47] VITALS: BP 95/58
[2016-10-26] MEDS: ASCORBIC ACID 500 MG TABLET GT SCH (08:46)
[2016-10-26] MEDS: MVI/MINERALS LIQUID (CEROVITE) GT SCH (08:46)
[2016-10-26] MEDS: OCUSOFT LID SCRUB TP SCH ×2 (08:46→17:00)
[2016-10-26] MEDS: CHLORHEXIDINE GLUCONATE 15 ML UDC MM SCH ×2 (08:46→17:00)
[2016-10-26] MEDS: PROSOURCE / PROSTAT (PYXIS) 30 ML UDC GT SCH (08:46)
[2016-10-26] MEDS: ZINC OXIDE 30 GM TUBE TP SCH ×2 (08:46→21:17)
[2016-10-26] MEDS: SERTRALINE HCL 25 MG TABLET GT SCH (08:46)
[2016-10-26] MEDS: HYDROGEN PEROXIDE 480 ML BOTTLE TP SCH ×2 (08:46→21:17)
[2016-10-26] MEDS: Z GUARD REMEDY 4 OZ OINT TP SCH ×2 (08:46→21:17)
[2016-10-26] MEDS: MINERAL OIL/PETROLATUM,WHITE 454 GM JAR TP SCH ×2 (08:46→21:17)
[2016-10-26] MEDS: NEOMY SULF/BACITRAC ZN/POLY 15 GM TUBE TP SCH (11:00)
[2016-10-26 20:00] VITALS: BP 98/63
[2016-10-27] MEDS: SUCRALFATE 1 G/10 ML UDC GT SCH ×6 (00:34→21:20)
[2016-10-27] MEDS: ALBUTEROL FS 2.5 MG/0.5 ML VIAL.NEB NEB SCH ×4 (02:24→20:11)
[2016-10-27] MEDS: IPRATROPIUM NEB FS 0.5 MG/2.5 ML AMPUL.NEB IH SCH ×4 (02:24→20:11)
[2016-10-27] MEDS: POLYVINYL ALCOHOL 15 ML BOTTLE EACHEYE SCH ×3 (05:51→21:20)
[2016-10-27] MEDS: OMEPRAZOLE 20 MG CAPSULE.DR GT SCH (05:51)
[2016-10-27 07:45] VITALS: BP 102/53
[2016-10-27] MEDS: CHLORHEXIDINE GLUCONATE 15 ML UDC MM SCH ×2 (09:00→17:00)
[2016-10-27] MEDS: PROSOURCE / PROSTAT (PYXIS) 30 ML UDC GT SCH (09:00)
[2016-10-27] MEDS: SERTRALINE HCL 25 MG TABLET GT SCH (09:00)
[2016-10-27] MEDS: MVI/MINERALS LIQUID (CEROVITE) GT SCH (09:00)
[2016-10-27] MEDS: ASCORBIC ACID 500 MG TABLET GT SCH (09:00)
[2016-10-27] MEDS: MINERAL OIL/PETROLATUM,WHITE 454 GM JAR TP SCH ×2 (14:30→21:20)
[2016-10-27] MEDS: OCUSOFT LID SCRUB TP SCH ×2 (14:30→17:00)
[2016-10-27] MEDS: HYDROGEN PEROXIDE 480 ML BOTTLE TP SCH ×2 (14:30→21:20)
[2016-10-27] MEDS: Z GUARD REMEDY 4 OZ OINT TP SCH ×2 (14:30→21:20)
[2016-10-27] MEDS: ZINC OXIDE 30 GM TUBE TP SCH ×2 (14:30→21:20)
[2016-10-27] MEDS: FIBERSOURCE HN 1,000 ML BOTTLE GT PRN (14:51)
[2016-10-27 19:58] VITALS: BP 104/63
[2016-10-28] MEDS: SUCRALFATE 1 G/10 ML UDC GT SCH ×6 (01:00→20:59)
[2016-10-28] MEDS: IPRATROPIUM NEB FS 0.5 MG/2.5 ML AMPUL.NEB IH SCH ×4 (02:24→20:16)
[2016-10-28] MEDS: ALBUTEROL FS 2.5 MG/0.5 ML VIAL.NEB NEB SCH ×4 (02:24→20:16)
[2016-10-28] MEDS: POLYVINYL ALCOHOL 15 ML BOTTLE EACHEYE SCH ×3 (05:37→20:59)
[2016-10-28] MEDS: OMEPRAZOLE 20 MG CAPSULE.DR GT SCH (05:38)
[2016-10-28 07:57] VITALS: BP 136/62
--- NOTE | 2016-10-28 08:14 | NUR ---
Yamil called the resident's daughter to follow up on the status of the resident's benefits. Olivia stated that she had to postpone the meeting with the Social Security Office and that the meeting is now for November 24, 2016 but that she might have the chance to go earlier. 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 Olivia stated that today is her day off and that she is planning to come and see the resident.
[2016-10-28] MEDS: ASCORBIC ACID 500 MG TABLET GT SCH (09:00)
[2016-10-28] MEDS: CHLORHEXIDINE GLUCONATE 15 ML UDC MM SCH ×2 (09:00→16:57)
[2016-10-28] MEDS: MVI/MINERALS LIQUID (CEROVITE) GT SCH (09:00)
[2016-10-28] MEDS: SERTRALINE HCL 25 MG TABLET GT SCH (09:00)
[2016-10-28] MEDS: PROSOURCE / PROSTAT (PYXIS) 30 ML UDC GT SCH (09:00)
[2016-10-28] MEDS: ZINC OXIDE 30 GM TUBE TP SCH ×2 (11:45→20:59)
[2016-10-28] MEDS: HYDROGEN PEROXIDE 480 ML BOTTLE TP SCH ×2 (11:45→20:59)
[2016-10-28] MEDS: OCUSOFT LID SCRUB TP SCH ×2 (11:45→16:57)
[2016-10-28] MEDS: MINERAL OIL/PETROLATUM,WHITE 454 GM JAR TP SCH ×2 (11:45→20:59)
[2016-10-28] MEDS: Z GUARD REMEDY 4 OZ OINT TP SCH ×2 (11:45→20:59)
[2016-10-28] MEDS: FIBERSOURCE HN 1,000 ML BOTTLE GT PRN (16:59)
--- NOTE | 2016-10-28 18:35 | NUR ---
Pt noted with right forearm open skin. LACEY Green reported that pt moved his arm and his armband scratched on his skin. Received order to apply triple antibiotic ointment and cover with Tegaderm q 3 days and PRN when soiled or out for 2 weeks. Notified Olivia Olivo. Addendum: 10/28/16 at 1846 by NABOR GARCIA RN Olivia said she will visit the pt tomorrow.
[2016-10-28 19:56] VITALS: BP 108/63
[2016-10-28] MEDS: NEOMY SULF/BACITRAC ZN/POLY 15 GM TUBE TP SCH (20:47)
[2016-10-29] MEDS: SUCRALFATE 1 G/10 ML UDC GT SCH ×6 (01:15→20:47)
[2016-10-29] MEDS: ALBUTEROL FS 2.5 MG/0.5 ML VIAL.NEB NEB SCH ×4 (02:06→19:41)
[2016-10-29] MEDS: IPRATROPIUM NEB FS 0.5 MG/2.5 ML AMPUL.NEB IH SCH ×4 (02:06→19:41)
[2016-10-29] MEDS: POLYVINYL ALCOHOL 15 ML BOTTLE EACHEYE SCH ×3 (05:59→20:47)
[2016-10-29] MEDS: OMEPRAZOLE 20 MG CAPSULE.DR GT SCH (05:59)
--- NOTE | 2016-10-29 07:26 | NUR ---
RT PT RECEIVED TRACHED ON THE VENT WITH NOTED SETTINGS. PT IS AWAKE AND ALERT. VENT ALARMS ARE SET AND AUDIBLE WITH BVM BY BEDSIDE. SENIOR EXAMINER CUFF PRESSURE NOTED. VENT IS PLUGGED INTO RED OUTLET. NO RESPIRATORY DISTRESS NOTED AT THIS TIME, WILL CONTINUE TO MONITOR. Addendum: 10/29/16 at 1554 by MADAN BROWN RT Amended: Links added.
[2016-10-29 07:30] VITALS: BP 120/67
[2016-10-29] MEDS: ZINC OXIDE 30 GM TUBE TP SCH ×2 (09:00→20:48)
[2016-10-29] MEDS: HYDROGEN PEROXIDE 480 ML BOTTLE TP SCH ×2 (09:00→20:47)
[2016-10-29] MEDS: Z GUARD REMEDY 4 OZ OINT TP SCH ×2 (09:00→20:47)
[2016-10-29] MEDS: CHLORHEXIDINE GLUCONATE 15 ML UDC MM SCH ×2 (09:00→17:20)
[2016-10-29] MEDS: OCUSOFT LID SCRUB TP SCH ×2 (09:00→17:20)
[2016-10-29] MEDS: MVI/MINERALS LIQUID (CEROVITE) GT SCH (09:39)
[2016-10-29] MEDS: ASCORBIC ACID 500 MG TABLET GT SCH (09:39)
[2016-10-29] MEDS: PROSOURCE / PROSTAT (PYXIS) 30 ML UDC GT SCH (09:39)
[2016-10-29] MEDS: SERTRALINE HCL 25 MG TABLET GT SCH (09:40)
[2016-10-29] MEDS: MINERAL OIL/PETROLATUM,WHITE 454 GM JAR TP SCH ×2 (09:41→20:47)
[2016-10-29] MEDS: FIBERSOURCE HN 1,000 ML BOTTLE GT PRN (09:41)
[2016-10-29] MEDS: NEOMY SULF/BACITRAC ZN/POLY 15 GM TUBE TP SCH (11:00)
--- NOTE | 2016-10-29 14:28 | NUR ---
Noted intact blister to right hip, no signs of infections noted at this time, no swelling noted. Treatment done. Keep off pressure to affected site at all times. Closely monitored.
[2016-10-29 19:58] VITALS: BP 100/63
[2016-10-30] MEDS: ALBUTEROL FS 2.5 MG/0.5 ML VIAL.NEB NEB SCH ×4 (00:35→20:25)
[2016-10-30] MEDS: IPRATROPIUM NEB FS 0.5 MG/2.5 ML AMPUL.NEB IH SCH ×4 (00:35→20:25)
[2016-10-30] MEDS: FIBERSOURCE HN 1,000 ML BOTTLE GT PRN ×2 (00:37→14:44)
[2016-10-30] MEDS: SUCRALFATE 1 G/10 ML UDC GT SCH ×6 (00:37→21:10)
[2016-10-30] MEDS: POLYVINYL ALCOHOL 15 ML BOTTLE EACHEYE SCH ×3 (05:06→21:10)
[2016-10-30] MEDS: OMEPRAZOLE 20 MG CAPSULE.DR GT SCH (05:06)
[2016-10-30 07:46] VITALS: BP 110/64
[2016-10-30] MEDS: PROSOURCE / PROSTAT (PYXIS) 30 ML UDC GT SCH (09:00)
[2016-10-30] MEDS: MVI/MINERALS LIQUID (CEROVITE) GT SCH (09:00)
[2016-10-30] MEDS: SERTRALINE HCL 25 MG TABLET GT SCH (09:00)
[2016-10-30] MEDS: ASCORBIC ACID 500 MG TABLET GT SCH (09:00)
[2016-10-30] MEDS: CHLORHEXIDINE GLUCONATE 15 ML UDC MM SCH ×2 (09:00→17:00)
[2016-10-30] MEDS: OCUSOFT LID SCRUB TP SCH ×2 (09:00→17:00)
[2016-10-30] MEDS: MINERAL OIL/PETROLATUM,WHITE 454 GM JAR TP SCH ×2 (12:00→21:10)
[2016-10-30] MEDS: ZINC OXIDE 30 GM TUBE TP SCH ×2 (12:00→21:10)
[2016-10-30] MEDS: Z GUARD REMEDY 4 OZ OINT TP SCH ×2 (12:00→21:10)
[2016-10-30] MEDS: HYDROGEN PEROXIDE 480 ML BOTTLE TP SCH ×2 (12:00→21:10)
[2016-10-30] MEDS ORDERED: NEOMY SULF/BACITRAC ZN/POLY 15 GM TUBE TP PRN (13:00)
[2016-10-30] MEDS ORDERED: NEOMY SULF/BACITRAC ZN/POLY 15 GM TUBE TP SCH (13:00)
--- NOTE | 2016-10-30 15:39 | NUR ---
RT PATIENT RECEIVED TRACH'D ON [facility] VENT WITH SETTINGS PER MD ORDER. CASING SOAKER DONE. BILAT BREATH SOUNDS ON AUSCULTATION. SUCTIONED LARGE AMOUNTS OF THICK, WHITE/YELLOW SECRETIONS. TRACH SECURE AND AIRWAY PATENT. ALARMS ON AND WORKING PROPERLY. VENT PLUGGED INTO RED OUTLET. SPARE TRACH AND AMBU BAG AT BEDSIDE. BREATHING TX'S GIVEN ORDERED. NO ADVERSE EFFECTS OBSERVED. WILL CONTINUE TO MONITOR THE PATIENT FOR ANY CHANGES. Addendum: 10/30/16 at 1757 by IVAN HALL RT Amended: Links added.
[2016-10-30 19:58] VITALS: BP 101/57
--- NOTE | 2016-10-30 20:26 | NUR ---
PT COMFORTABLE ON CURRENT VENT SETTINGS. NO CHANGES MADE. ALARMS ARE SET AND AUDIBLE PER POLICY. AMBU BAG BEDSIDE. CONTINUE CURRENT THERAPY. Addendum: 10/31/16 at 0446 by RADHA SQUIRES RT Amended: Links added.
[2016-10-31] MEDS: SUCRALFATE 1 G/10 ML UDC GT SCH ×6 (00:02→20:38)
[2016-10-31] MEDS: ALBUTEROL FS 2.5 MG/0.5 ML VIAL.NEB NEB SCH ×4 (01:42→19:34)
[2016-10-31] MEDS: IPRATROPIUM NEB FS 0.5 MG/2.5 ML AMPUL.NEB IH SCH ×4 (01:42→19:34)
[2016-10-31] MEDS: FIBERSOURCE HN 1,000 ML BOTTLE GT PRN ×2 (04:35→22:59)
[2016-10-31] MEDS: POLYVINYL ALCOHOL 15 ML BOTTLE EACHEYE SCH ×3 (05:06→20:38)
[2016-10-31] MEDS: OMEPRAZOLE 20 MG CAPSULE.DR GT SCH (05:06)
[2016-10-31 07:35] VITALS: BP 103/67
[2016-10-31] MEDS: ZINC OXIDE 30 GM TUBE TP SCH ×2 (09:00→20:38)
[2016-10-31] MEDS: CHLORHEXIDINE GLUCONATE 15 ML UDC MM SCH ×2 (09:00→17:00)
[2016-10-31] MEDS: HYDROGEN PEROXIDE 480 ML BOTTLE TP SCH ×2 (09:00→20:38)
[2016-10-31] MEDS: Z GUARD REMEDY 4 OZ OINT TP SCH ×2 (09:00→20:38)
[2016-10-31] MEDS: ASCORBIC ACID 500 MG TABLET GT SCH (09:07)
[2016-10-31] MEDS: MVI/MINERALS LIQUID (CEROVITE) GT SCH (09:07)
[2016-10-31] MEDS: MINERAL OIL/PETROLATUM,WHITE 454 GM JAR TP SCH ×2 (09:07→20:38)
[2016-10-31] MEDS: SERTRALINE HCL 25 MG TABLET GT SCH (09:07)
[2016-10-31] MEDS: OCUSOFT LID SCRUB TP SCH ×2 (09:07→17:00)
[2016-10-31] MEDS: PROSOURCE / PROSTAT (PYXIS) 30 ML UDC GT SCH (09:07)
--- NOTE | 2016-10-31 16:10 | NUR ---
Pt seen and examined by Dr. Vance. No new order given.
[2016-10-31] MEDS: NEOMY SULF/BACITRAC ZN/POLY 15 GM TUBE TP SCH (20:38)
[2016-10-31 20:42] VITALS: BP 100/59
[2016-11-01] MEDS: SUCRALFATE 1 G/10 ML UDC GT SCH ×6 (00:52→20:32)
[2016-11-01] MEDS: ALBUTEROL FS 2.5 MG/0.5 ML VIAL.NEB NEB SCH ×4 (01:34→19:45)
[2016-11-01] MEDS: IPRATROPIUM NEB FS 0.5 MG/2.5 ML AMPUL.NEB IH SCH ×4 (01:34→19:45)
[2016-11-01] MEDS: POLYVINYL ALCOHOL 15 ML BOTTLE EACHEYE SCH ×3 (05:19→20:32)
[2016-11-01] MEDS: OMEPRAZOLE 20 MG CAPSULE.DR GT SCH (05:19)
[2016-11-01 07:30] VITALS: BP 94/59
[2016-11-01] MEDS: CHLORHEXIDINE GLUCONATE 15 ML UDC MM SCH ×2 (08:43→16:15)
[2016-11-01] MEDS: MINERAL OIL/PETROLATUM,WHITE 454 GM JAR TP SCH ×2 (08:43→20:32)
[2016-11-01] MEDS: ASCORBIC ACID 500 MG TABLET GT SCH (08:43)
[2016-11-01] MEDS: OCUSOFT LID SCRUB TP SCH ×2 (08:43→16:15)
[2016-11-01] MEDS: PROSOURCE / PROSTAT (PYXIS) 30 ML UDC GT SCH (08:43)
[2016-11-01] MEDS: MVI/MINERALS LIQUID (CEROVITE) GT SCH (08:43)
[2016-11-01] MEDS: SERTRALINE HCL 25 MG TABLET GT SCH (08:43)
[2016-11-01] MEDS: ZINC OXIDE 30 GM TUBE TP SCH (09:00)
[2016-11-01] MEDS: HYDROGEN PEROXIDE 480 ML BOTTLE TP SCH ×2 (09:00→20:32)
[2016-11-01] MEDS: Z GUARD REMEDY 4 OZ OINT TP SCH ×2 (09:00→20:32)
[2016-11-01] MEDS: NEOMY SULF/BACITRAC ZN/POLY 15 GM TUBE TP SCH (11:00)
[2016-11-01] MEDS: FIBERSOURCE HN 1,000 ML BOTTLE GT PRN (13:04)
[2016-11-01 21:50] VITALS: BP 104/61
[2016-11-02] MEDS: SUCRALFATE 1 G/10 ML UDC GT SCH ×6 (00:21→21:07)
[2016-11-02] MEDS: IPRATROPIUM NEB FS 0.5 MG/2.5 ML AMPUL.NEB IH SCH ×4 (02:16→20:21)
[2016-11-02] MEDS: ALBUTEROL FS 2.5 MG/0.5 ML VIAL.NEB NEB SCH ×4 (02:16→20:21)
[2016-11-02] MEDS: FIBERSOURCE HN 1,000 ML BOTTLE GT PRN (05:33)
[2016-11-02] MEDS: POLYVINYL ALCOHOL 15 ML BOTTLE EACHEYE SCH ×3 (05:33→21:07)
[2016-11-02] MEDS: OMEPRAZOLE 20 MG CAPSULE.DR GT SCH (05:33)
[2016-11-02 07:48] LABS: BASOPHILS % (AUTO) 0.2 % (0.0-2.0); EOSINOPHILS # (AUTO) 0.1 /CMM (0.0-0.7); EOSINOPHILS % (AUTO) 1.4 % (0.0-6.0); HEMATOCRIT 25 % (39-51); HEMOGLOBIN 8.4 g/dL (13.5-17.5); LYMPHOCYTES # (AUTO) 0.9 /CMM (0.8-4.8); LYMPHOCYTES % (AUTO) 11.7 % (20.0-44.0); MEAN CORPUSCULAR HEMOGLOBIN 28 PG (26.0-33.0); MEAN CORPUSCULAR HGB CONC 34 g/dl (31.0-36.0); MEAN CORPUSCULAR VOLUME 85 fL (80-96); MONOCYTES # (AUTO) 0.6 /CMM (0.1-1.30); MONOCYTES % (AUTO) 8.1 % (2.0-12.0); NEUTROPHILS # (AUTO) 5.7 /CMM (1.8-8.9); NEUTROPHILS % (AUTO) 78.6 % (43.0-81.0); PLATELET COUNT (AUTO) 305 /CMM (150-450); RDW COEFFICIENT OF VARIATION 15.9 (11.5-15.0); RED BLOOD CELL COUNT(AUTO) 2.94 MIL/uL (4.5-6.0); WHITE BLOOD COUNT (AUTO) 7.3 K/uL (4.3-11.0)
[2016-11-02 08:02] VITALS: BP 99/57
[2016-11-02 08:10] LABS: CARBON DIOXIDE 30 mmol/L (21-32); CHLORIDE 100 mmol/L (98-107); CREATININE 0.6 mg/dL (0.6-1.3); GLUCOSE 84 mg/dL (74-106); MAGNESIUM 1.9 mg/dL (1.8-2.4); PHOSPHORUS 3.4 mg/dL (2.5-4.9); POTASSIUM 4.5 mmol/L (3.5-5.1); SODIUM SERUM 137 mmol/L (136-145); UREA NITROGEN, BLOOD 32 mg/dL (7-18)
[2016-11-02] MEDS: PROSOURCE / PROSTAT (PYXIS) 30 ML UDC GT SCH (08:46)
[2016-11-02] MEDS: SERTRALINE HCL 25 MG TABLET GT SCH (08:46)
[2016-11-02] MEDS: ASCORBIC ACID 500 MG TABLET GT SCH (08:46)
[2016-11-02] MEDS: MVI/MINERALS LIQUID (CEROVITE) GT SCH (08:46)
[2016-11-02] MEDS: Z GUARD REMEDY 4 OZ OINT TP SCH ×2 (08:46→21:20)
[2016-11-02] MEDS: CHLORHEXIDINE GLUCONATE 15 ML UDC MM SCH ×2 (08:46→16:45)
[2016-11-02] MEDS: HYDROGEN PEROXIDE 480 ML BOTTLE TP SCH ×2 (08:46→21:20)
[2016-11-02] MEDS: OCUSOFT LID SCRUB TP SCH ×2 (08:46→16:46)
[2016-11-02] MEDS: MINERAL OIL/PETROLATUM,WHITE 454 GM JAR TP SCH ×2 (08:46→21:08)
[2016-11-02 20:16] VITALS: BP 100/71
[2016-11-03] MEDS: SUCRALFATE 1 G/10 ML UDC GT SCH ×6 (01:00→21:23)
[2016-11-03] MEDS: ALBUTEROL FS 2.5 MG/0.5 ML VIAL.NEB NEB SCH ×4 (01:15→19:30)
[2016-11-03] MEDS: IPRATROPIUM NEB FS 0.5 MG/2.5 ML AMPUL.NEB IH SCH ×4 (01:15→19:30)
[2016-11-03] MEDS: POLYVINYL ALCOHOL 15 ML BOTTLE EACHEYE SCH ×3 (05:46→21:23)
[2016-11-03] MEDS: OMEPRAZOLE 20 MG CAPSULE.DR GT SCH (05:46)
[2016-11-03] MEDS: OCUSOFT LID SCRUB TP SCH ×2 (09:00→17:56)
[2016-11-03] MEDS: SERTRALINE HCL 25 MG TABLET GT SCH (09:45)
[2016-11-03] MEDS: ASCORBIC ACID 500 MG TABLET GT SCH (09:45)
[2016-11-03] MEDS: PROSOURCE / PROSTAT (PYXIS) 30 ML UDC GT SCH (09:45)
[2016-11-03] MEDS: CHLORHEXIDINE GLUCONATE 15 ML UDC MM SCH ×2 (09:45→17:56)
[2016-11-03] MEDS: MVI/MINERALS LIQUID (CEROVITE) GT SCH (09:45)
[2016-11-03] MEDS: FIBERSOURCE HN 1,000 ML BOTTLE GT PRN (13:21)
[2016-11-03] MEDS: HYDROGEN PEROXIDE 480 ML BOTTLE TP SCH ×2 (14:00→21:24)
[2016-11-03] MEDS: MINERAL OIL/PETROLATUM,WHITE 454 GM JAR TP SCH ×2 (14:00→21:24)
[2016-11-03] MEDS: Z GUARD REMEDY 4 OZ OINT TP SCH ×2 (14:00→21:24)
[2016-11-03 19:55] VITALS: BP 98/60
[2016-11-03] MEDS: NEOMY SULF/BACITRAC ZN/POLY 15 GM TUBE TP SCH (20:00)
[2016-11-04] MEDS: SUCRALFATE 1 G/10 ML UDC GT SCH ×6 (01:00→21:29)
[2016-11-04] MEDS: IPRATROPIUM NEB FS 0.5 MG/2.5 ML AMPUL.NEB IH SCH ×4 (02:14→19:47)
[2016-11-04] MEDS: ALBUTEROL FS 2.5 MG/0.5 ML VIAL.NEB NEB SCH ×4 (02:14→19:47)
[2016-11-04] MEDS: OMEPRAZOLE 20 MG CAPSULE.DR GT SCH (05:46)
[2016-11-04] MEDS: POLYVINYL ALCOHOL 15 ML BOTTLE EACHEYE SCH ×3 (05:46→21:29)
[2016-11-04 08:00] VITALS: BP 91/55
[2016-11-04] MEDS: OCUSOFT LID SCRUB TP SCH ×2 (09:00→17:00)
[2016-11-04] MEDS: SERTRALINE HCL 25 MG TABLET GT SCH (09:00)
[2016-11-04] MEDS: CHLORHEXIDINE GLUCONATE 15 ML UDC MM SCH ×2 (09:00→17:02)
[2016-11-04] MEDS: ASCORBIC ACID 500 MG TABLET GT SCH (09:00)
[2016-11-04] MEDS: MVI/MINERALS LIQUID (CEROVITE) GT SCH (09:59)
[2016-11-04] MEDS: PROSOURCE / PROSTAT (PYXIS) 30 ML UDC GT SCH (10:00)
[2016-11-04] MEDS: NEOMY SULF/BACITRAC ZN/POLY 15 GM TUBE TP SCH (11:00)
[2016-11-04] MEDS: Z GUARD REMEDY 4 OZ OINT TP SCH ×2 (16:00→21:30)
[2016-11-04] MEDS: MINERAL OIL/PETROLATUM,WHITE 454 GM JAR TP SCH ×2 (16:00→21:30)
[2016-11-04] MEDS: HYDROGEN PEROXIDE 480 ML BOTTLE TP SCH ×2 (16:00→21:30)
[2016-11-04] MEDS: FIBERSOURCE HN 1,000 ML BOTTLE GT PRN (19:06)
[2016-11-04 19:41] VITALS: BP 137/64
[2016-11-05] MEDS: SUCRALFATE 1 G/10 ML UDC GT SCH ×6 (01:00→21:21)
[2016-11-05] MEDS: ALBUTEROL FS 2.5 MG/0.5 ML VIAL.NEB NEB SCH ×4 (01:39→19:31)
[2016-11-05] MEDS: IPRATROPIUM NEB FS 0.5 MG/2.5 ML AMPUL.NEB IH SCH ×4 (01:39→19:31)
[2016-11-05] MEDS: POLYVINYL ALCOHOL 15 ML BOTTLE EACHEYE SCH ×3 (05:45→21:21)
[2016-11-05] MEDS: OMEPRAZOLE 20 MG CAPSULE.DR GT SCH (05:45)
[2016-11-05 07:54] VITALS: BP 108/58
[2016-11-05] MEDS: CHLORHEXIDINE GLUCONATE 15 ML UDC MM SCH ×2 (09:00→16:26)
[2016-11-05] MEDS: OCUSOFT LID SCRUB TP SCH ×2 (09:00→16:26)
[2016-11-05] MEDS: SERTRALINE HCL 25 MG TABLET GT SCH (09:43)
[2016-11-05] MEDS: HYDROGEN PEROXIDE 480 ML BOTTLE TP SCH ×2 (09:43→21:22)
[2016-11-05] MEDS: MINERAL OIL/PETROLATUM,WHITE 454 GM JAR TP SCH ×2 (09:43→21:22)
[2016-11-05] MEDS: Z GUARD REMEDY 4 OZ OINT TP SCH ×2 (09:43→21:23)
[2016-11-05] MEDS: ASCORBIC ACID 500 MG TABLET GT SCH (09:43)
[2016-11-05] MEDS: MVI/MINERALS LIQUID (CEROVITE) GT SCH (09:43)
[2016-11-05] MEDS: PROSOURCE / PROSTAT (PYXIS) 30 ML UDC GT SCH (09:43)
[2016-11-05] MEDS: FIBERSOURCE HN 1,000 ML BOTTLE GT PRN (13:30)
[2016-11-05 19:40] VITALS: BP 98/60
[2016-11-06] MEDS: SUCRALFATE 1 G/10 ML UDC GT SCH ×6 (01:12→21:14)
[2016-11-06] MEDS: ALBUTEROL FS 2.5 MG/0.5 ML VIAL.NEB NEB SCH ×4 (01:29→19:01)
[2016-11-06] MEDS: IPRATROPIUM NEB FS 0.5 MG/2.5 ML AMPUL.NEB IH SCH ×4 (01:29→19:01)
[2016-11-06] MEDS: FIBERSOURCE HN 1,000 ML BOTTLE GT PRN ×2 (03:20→16:24)
[2016-11-06] MEDS: POLYVINYL ALCOHOL 15 ML BOTTLE EACHEYE SCH ×3 (05:32→21:14)
[2016-11-06] MEDS: OMEPRAZOLE 20 MG CAPSULE.DR GT SCH (05:32)
[2016-11-06 07:37] VITALS: BP 131/67
[2016-11-06] MEDS: PROSOURCE / PROSTAT (PYXIS) 30 ML UDC GT SCH (08:20)
[2016-11-06] MEDS: MVI/MINERALS LIQUID (CEROVITE) GT SCH (08:20)
[2016-11-06] MEDS: MINERAL OIL/PETROLATUM,WHITE 454 GM JAR TP SCH ×2 (08:21→21:14)
[2016-11-06] MEDS: OCUSOFT LID SCRUB TP SCH ×2 (08:21→17:47)
[2016-11-06] MEDS: CHLORHEXIDINE GLUCONATE 15 ML UDC MM SCH ×2 (08:21→17:47)
[2016-11-06] MEDS: Z GUARD REMEDY 4 OZ OINT TP SCH ×2 (08:21→21:14)
[2016-11-06] MEDS: HYDROGEN PEROXIDE 480 ML BOTTLE TP SCH ×2 (08:21→21:14)
[2016-11-06] MEDS: SERTRALINE HCL 25 MG TABLET GT SCH (08:21)
[2016-11-06] MEDS: ASCORBIC ACID 500 MG TABLET GT SCH (08:21)
[2016-11-06] MEDS: NEOMY SULF/BACITRAC ZN/POLY 15 GM TUBE TP SCH (20:00)
[2016-11-06 20:41] VITALS: BP 98/64
[2016-11-06] MEDS: TEMAZEPAM 7.5 MG CAPSULE GT PRN (21:16)
[2016-11-07] MEDS: SUCRALFATE 1 G/10 ML UDC GT SCH ×6 (01:01→21:16)
[2016-11-07] MEDS: IPRATROPIUM NEB FS 0.5 MG/2.5 ML AMPUL.NEB IH SCH ×4 (01:23→19:26)
[2016-11-07] MEDS: ALBUTEROL FS 2.5 MG/0.5 ML VIAL.NEB NEB SCH ×4 (01:23→19:26)
[2016-11-07] MEDS: OMEPRAZOLE 20 MG CAPSULE.DR GT SCH (05:51)
[2016-11-07] MEDS: POLYVINYL ALCOHOL 15 ML BOTTLE EACHEYE SCH ×3 (05:51→21:16)
--- NOTE | 2016-11-07 06:18 | NUR ---
Pt noted with right breast redness,slight swelling noted,warm to touch,no drainage noted.Patient denies pain.Afebrile.Will continue to monitor and will endorse to oncoming shift.
[2016-11-07] MEDS: FIBERSOURCE HN 1,000 ML BOTTLE GT PRN ×2 (06:59→23:38)
[2016-11-07 07:39] VITALS: BP 116/68
[2016-11-07] MEDS: CHLORHEXIDINE GLUCONATE 15 ML UDC MM SCH ×2 (09:00→17:00)
[2016-11-07] MEDS: OCUSOFT LID SCRUB TP SCH ×2 (09:00→17:00)
[2016-11-07] MEDS: MVI/MINERALS LIQUID (CEROVITE) GT SCH (09:20)
[2016-11-07] MEDS: SERTRALINE HCL 25 MG TABLET GT SCH (09:20)
[2016-11-07] MEDS: PROSOURCE / PROSTAT (PYXIS) 30 ML UDC GT SCH (09:20)
[2016-11-07] MEDS: ASCORBIC ACID 500 MG TABLET GT SCH (09:20)
[2016-11-07] MEDS: MINERAL OIL/PETROLATUM,WHITE 454 GM JAR TP SCH ×2 (09:26→21:16)
[2016-11-07] MEDS: Z GUARD REMEDY 4 OZ OINT TP SCH ×2 (12:27→21:16)
[2016-11-07] MEDS: HYDROGEN PEROXIDE 480 ML BOTTLE TP SCH ×2 (12:27→21:16)
[2016-11-07] MEDS ORDERED: TRIAMCINOLONE ACETONIDE 0.1% CR 15 GM TUBE TP PRN (14:30)
--- NOTE | 2016-11-07 14:32 | NUR ---
RN NOTES DR Matias CROUCH NOTIFIED REGARDING R BREAST REDNESS, NEW ORDER GIVEN .
[2016-11-07 19:41] VITALS: BP 114/70
[2016-11-07] MEDS: TEMAZEPAM 7.5 MG CAPSULE GT PRN (23:31)
[2016-11-08] MEDS: SUCRALFATE 1 G/10 ML UDC GT SCH ×6 (00:41→21:10)
[2016-11-08] MEDS: IPRATROPIUM NEB FS 0.5 MG/2.5 ML AMPUL.NEB IH SCH ×4 (01:24→19:44)
[2016-11-08] MEDS: ALBUTEROL FS 2.5 MG/0.5 ML VIAL.NEB NEB SCH ×4 (01:24→19:44)
[2016-11-08] MEDS: OMEPRAZOLE 20 MG CAPSULE.DR GT SCH (05:24)
[2016-11-08] MEDS: POLYVINYL ALCOHOL 15 ML BOTTLE EACHEYE SCH ×3 (05:26→21:10)
[2016-11-08 07:45] VITALS: BP 102/47
[2016-11-08] MEDS: PROSOURCE / PROSTAT (PYXIS) 30 ML UDC GT SCH (09:00)
[2016-11-08] MEDS: SERTRALINE HCL 25 MG TABLET GT SCH (09:00)
[2016-11-08] MEDS: Z GUARD REMEDY 4 OZ OINT TP SCH ×2 (09:00→21:10)
[2016-11-08] MEDS: CHLORHEXIDINE GLUCONATE 15 ML UDC MM SCH ×2 (09:00→17:12)
[2016-11-08] MEDS: ASCORBIC ACID 500 MG TABLET GT SCH (09:00)
[2016-11-08] MEDS: HYDROGEN PEROXIDE 480 ML BOTTLE TP SCH ×2 (09:00→21:10)
[2016-11-08] MEDS: OCUSOFT LID SCRUB TP SCH ×2 (09:00→17:12)
[2016-11-08] MEDS: MVI/MINERALS LIQUID (CEROVITE) GT SCH (09:00)
[2016-11-08] MEDS: MINERAL OIL/PETROLATUM,WHITE 454 GM JAR TP SCH ×2 (09:00→21:10)
[2016-11-08] MEDS: FIBERSOURCE HN 1,000 ML BOTTLE GT PRN (16:41)
[2016-11-08 19:40] VITALS: BP 107/58
[2016-11-09] MEDS: SUCRALFATE 1 G/10 ML UDC GT SCH ×6 (00:01→20:34)
[2016-11-09] MEDS: IPRATROPIUM NEB FS 0.5 MG/2.5 ML AMPUL.NEB IH SCH ×4 (01:29→19:30)
[2016-11-09] MEDS: ALBUTEROL FS 2.5 MG/0.5 ML VIAL.NEB NEB SCH ×4 (01:29→19:30)
[2016-11-09] MEDS: POLYVINYL ALCOHOL 15 ML BOTTLE EACHEYE SCH ×3 (05:55→20:33)
[2016-11-09] MEDS: OMEPRAZOLE 20 MG CAPSULE.DR GT SCH (05:56)
[2016-11-09] MEDS: FIBERSOURCE HN 1,000 ML BOTTLE GT PRN ×2 (05:56→18:53)
[2016-11-09 07:47] VITALS: BP 96/59
[2016-11-09] MEDS: MINERAL OIL/PETROLATUM,WHITE 454 GM JAR TP SCH ×2 (09:00→20:34)
[2016-11-09] MEDS: SERTRALINE HCL 25 MG TABLET GT SCH (09:00)
[2016-11-09] MEDS: CHLORHEXIDINE GLUCONATE 15 ML UDC MM SCH ×2 (09:00→17:00)
[2016-11-09] MEDS: ASCORBIC ACID 500 MG TABLET GT SCH (09:00)
[2016-11-09] MEDS: PROSOURCE / PROSTAT (PYXIS) 30 ML UDC GT SCH (09:00)
[2016-11-09] MEDS: OCUSOFT LID SCRUB TP SCH ×2 (09:00→17:00)
[2016-11-09] MEDS: HYDROGEN PEROXIDE 480 ML BOTTLE TP SCH ×2 (09:00→20:34)
[2016-11-09] MEDS: Z GUARD REMEDY 4 OZ OINT TP SCH ×2 (09:00→20:34)
[2016-11-09] MEDS: MVI/MINERALS LIQUID (CEROVITE) GT SCH (09:00)
[2016-11-09 19:53] VITALS: BP 92/64
[2016-11-09] MEDS: NEOMY SULF/BACITRAC ZN/POLY 15 GM TUBE TP SCH (20:33)
[2016-11-10] MEDS: SUCRALFATE 1 G/10 ML UDC GT SCH ×6 (00:22→20:36)
[2016-11-10] MEDS: ALBUTEROL FS 2.5 MG/0.5 ML VIAL.NEB NEB SCH ×4 (01:30→19:59)
[2016-11-10] MEDS: IPRATROPIUM NEB FS 0.5 MG/2.5 ML AMPUL.NEB IH SCH ×4 (01:30→19:59)
[2016-11-10] MEDS: POLYVINYL ALCOHOL 15 ML BOTTLE EACHEYE SCH ×3 (05:22→20:36)
[2016-11-10] MEDS: OMEPRAZOLE 20 MG CAPSULE.DR GT SCH (05:23)
--- NOTE | 2016-11-10 07:11 | NUR ---
Received male ryan pt on mechanical vent. Pt ryan is secure. Vent is plugged into a red outlet, alarms are set and audible, and BVM is at beside. Addendum: 11/10/16 at 0711 by KAYLIN GRANADOS RT Amended: Links added.
[2016-11-10 08:00] VITALS: BP_SYST 108; BP_SYST 155; BP_DIAS 64; BP_DIAS 85
[2016-11-10] MEDS: MINERAL OIL/PETROLATUM,WHITE 454 GM JAR TP SCH ×2 (09:00→20:36)
[2016-11-10] MEDS: MVI/MINERALS LIQUID (CEROVITE) GT SCH (09:00)
[2016-11-10] MEDS: HYDROGEN PEROXIDE 480 ML BOTTLE TP SCH ×2 (09:00→20:36)
[2016-11-10] MEDS: Z GUARD REMEDY 4 OZ OINT TP SCH ×2 (09:00→20:36)
[2016-11-10] MEDS: SERTRALINE HCL 25 MG TABLET GT SCH (09:00)
[2016-11-10] MEDS: ASCORBIC ACID 500 MG TABLET GT SCH (09:00)
[2016-11-10] MEDS: OCUSOFT LID SCRUB TP SCH ×2 (09:00→16:35)
[2016-11-10] MEDS: CHLORHEXIDINE GLUCONATE 15 ML UDC MM SCH ×2 (09:00→16:35)
[2016-11-10] MEDS: PROSOURCE / PROSTAT (PYXIS) 30 ML UDC GT SCH (09:00)
[2016-11-10] MEDS: FIBERSOURCE HN 1,000 ML BOTTLE GT PRN (12:51)
[2016-11-10 19:49] VITALS: BP 107/72
[2016-11-11] MEDS: SUCRALFATE 1 G/10 ML UDC GT SCH ×6 (00:23→20:37)
[2016-11-11] MEDS: ALBUTEROL FS 2.5 MG/0.5 ML VIAL.NEB NEB SCH ×4 (01:30→20:18)
[2016-11-11] MEDS: FIBERSOURCE HN 1,000 ML BOTTLE GT PRN ×2 (04:25→23:21)
[2016-11-11] MEDS: POLYVINYL ALCOHOL 15 ML BOTTLE EACHEYE SCH ×3 (05:23→20:37)
[2016-11-11] MEDS: OMEPRAZOLE 20 MG CAPSULE.DR GT SCH (05:24)
[2016-11-11] MEDS: IPRATROPIUM NEB FS 0.5 MG/2.5 ML AMPUL.NEB IH SCH ×3 (08:00→20:18)
[2016-11-11 08:42] VITALS: BP 102/72
[2016-11-11] MEDS: ASCORBIC ACID 500 MG TABLET GT SCH (09:21)
[2016-11-11] MEDS: PROSOURCE / PROSTAT (PYXIS) 30 ML UDC GT SCH (09:21)
[2016-11-11] MEDS: MVI/MINERALS LIQUID (CEROVITE) GT SCH (09:21)
[2016-11-11] MEDS: OCUSOFT LID SCRUB TP SCH ×2 (09:22→17:26)
[2016-11-11] MEDS: MINERAL OIL/PETROLATUM,WHITE 454 GM JAR TP SCH ×2 (09:22→20:37)
[2016-11-11] MEDS: HYDROGEN PEROXIDE 480 ML BOTTLE TP SCH ×2 (09:22→20:37)
[2016-11-11] MEDS: Z GUARD REMEDY 4 OZ OINT TP SCH ×2 (09:22→20:37)
[2016-11-11] MEDS: SERTRALINE HCL 25 MG TABLET GT SCH (09:22)
[2016-11-11] MEDS: CHLORHEXIDINE GLUCONATE 15 ML UDC MM SCH ×2 (09:22→17:26)
[2016-11-11 19:51] VITALS: BP 110/68
[2016-11-12] MEDS: SUCRALFATE 1 G/10 ML UDC GT SCH ×6 (00:08→21:18)
[2016-11-12] MEDS: IPRATROPIUM NEB FS 0.5 MG/2.5 ML AMPUL.NEB IH SCH ×4 (01:44→20:02)
[2016-11-12] MEDS: ALBUTEROL FS 2.5 MG/0.5 ML VIAL.NEB NEB SCH ×4 (01:44→20:02)
[2016-11-12] MEDS: OMEPRAZOLE 20 MG CAPSULE.DR GT SCH (05:55)
[2016-11-12] MEDS: POLYVINYL ALCOHOL 15 ML BOTTLE EACHEYE SCH ×3 (05:55→21:18)
[2016-11-12 08:00] VITALS: BP 114/92
[2016-11-12] MEDS: MVI/MINERALS LIQUID (CEROVITE) GT SCH (08:41)
[2016-11-12] MEDS: SERTRALINE HCL 25 MG TABLET GT SCH (08:41)
[2016-11-12] MEDS: CHLORHEXIDINE GLUCONATE 15 ML UDC MM SCH ×2 (08:41→17:00)
[2016-11-12] MEDS: MINERAL OIL/PETROLATUM,WHITE 454 GM JAR TP SCH ×2 (08:41→21:18)
[2016-11-12] MEDS: ASCORBIC ACID 500 MG TABLET GT SCH (08:41)
[2016-11-12] MEDS: PROSOURCE / PROSTAT (PYXIS) 30 ML UDC GT SCH (08:41)
[2016-11-12] MEDS: OCUSOFT LID SCRUB TP SCH ×2 (08:41→17:00)
[2016-11-12] MEDS: HYDROGEN PEROXIDE 480 ML BOTTLE TP SCH ×2 (08:42→21:18)
[2016-11-12] MEDS: Z GUARD REMEDY 4 OZ OINT TP SCH ×2 (08:42→21:18)
[2016-11-12 19:52] VITALS: BP 106/66
[2016-11-12] MEDS: FIBERSOURCE HN 1,000 ML BOTTLE GT PRN (21:40)
[2016-11-12] MEDS: TEMAZEPAM 7.5 MG CAPSULE GT PRN (22:21)
[2016-11-13] MEDS: SUCRALFATE 1 G/10 ML UDC GT SCH ×6 (01:25→21:00)
[2016-11-13] MEDS: IPRATROPIUM NEB FS 0.5 MG/2.5 ML AMPUL.NEB IH SCH ×4 (02:19→20:00)
[2016-11-13] MEDS: ALBUTEROL FS 2.5 MG/0.5 ML VIAL.NEB NEB SCH ×4 (02:19→20:00)
[2016-11-13] MEDS: OMEPRAZOLE 20 MG CAPSULE.DR GT SCH (05:30)
[2016-11-13] MEDS: POLYVINYL ALCOHOL 15 ML BOTTLE EACHEYE SCH ×3 (05:30→21:00)
[2016-11-13] MEDS: FIBERSOURCE HN 1,000 ML BOTTLE GT PRN (07:39)
[2016-11-13 07:58] VITALS: BP 115/72
[2016-11-13] MEDS: OCUSOFT LID SCRUB TP SCH ×2 (09:00→17:58)
[2016-11-13] MEDS: MINERAL OIL/PETROLATUM,WHITE 454 GM JAR TP SCH ×2 (09:00→21:00)
[2016-11-13] MEDS: CHLORHEXIDINE GLUCONATE 15 ML UDC MM SCH ×2 (09:00→17:54)
[2016-11-13] MEDS: SERTRALINE HCL 25 MG TABLET GT SCH (09:02)
[2016-11-13] MEDS: ASCORBIC ACID 500 MG TABLET GT SCH (09:03)
[2016-11-13] MEDS: MVI/MINERALS LIQUID (CEROVITE) GT SCH (09:05)
[2016-11-13] MEDS: PROSOURCE / PROSTAT (PYXIS) 30 ML UDC GT SCH (09:07)
[2016-11-13] MEDS: HYDROGEN PEROXIDE 480 ML BOTTLE TP SCH ×2 (15:30→21:00)
[2016-11-13] MEDS: Z GUARD REMEDY 4 OZ OINT TP SCH ×2 (15:30→21:00)
--- NOTE | 2016-11-13 19:06 | NUR ---
Pt's temp 101.[address] Vance and received order to do CXR, CBC, CMP, and UA.
[2016-11-13 19:47] VITALS: BP 109/66
[2016-11-13 20:16] LABS: BASOPHILS % (AUTO) 0.1 % (0.0-2.0); EOSINOPHILS % (AUTO) 0.1 % (0.0-6.0); HEMATOCRIT 25 % (39-51); HEMOGLOBIN 8.2 g/dL (13.5-17.5); LYMPHOCYTES # (AUTO) 0.7 /CMM (0.8-4.8); LYMPHOCYTES % (AUTO) 4.8 % (20.0-44.0); MEAN CORPUSCULAR HEMOGLOBIN 28 PG (26.0-33.0); MEAN CORPUSCULAR HGB CONC 33 g/dl (31.0-36.0); MEAN CORPUSCULAR VOLUME 84 fL (80-96); MONOCYTES # (AUTO) 0.8 /CMM (0.1-1.30); MONOCYTES % (AUTO) 5.4 % (2.0-12.0); NEUTROPHILS # (AUTO) 12.6 /CMM (1.8-8.9); NEUTROPHILS % (AUTO) 89.6 % (43.0-81.0); PLATELET COUNT (AUTO) 393 /CMM (150-450); RDW COEFFICIENT OF VARIATION 14.9 (11.5-15.0); RED BLOOD CELL COUNT(AUTO) 2.97 MIL/uL (4.5-6.0); WHITE BLOOD COUNT (AUTO) 14.1 K/uL (4.3-11.0)
[2016-11-13 20:27] LABS: ALANINE AMINOTRANSFERASE 32 U/L (12-78); ALKALINE PHOSPHATASE 182 U/L (46-116); ASPARTATE AMINOTRANSFERASE 25 U/L (15-37); BILIRUBIN,TOTAL 0.3 mg/dL (0.2-1.0); CALCIUM, SERUM 8.5 mg/dL (8.5-10.1); CARBON DIOXIDE 30 mmol/L (21-32); CHLORIDE 106 mmol/L (98-107); CREATININE 0.9 mg/dL (0.6-1.3); GLUCOSE 133 mg/dL (74-106); SODIUM SERUM 143 mmol/L (136-145); TOTAL PROTEIN, SERUM 7.6 g/dL (6.4-8.2); UREA NITROGEN, BLOOD 43 mg/dL (7-18)
[2016-11-13] MEDS: ACETAMINOPHEN 650 MG/20 ML UDC- FOR SA PATIENTS ONLY GT PRN (20:34)
[2016-11-13 20:49] LABS: APPEARANCE,URINE SL CLOUDY (CLEAR); BILIRUBIN,URINE NEGATIVE (NEGATIVE); BLOOD, URINE 3+ Ery/uL (NEGATIVE); COLOR,URINE YELLOW (YELLOW); KETONES,URINE NEGATIVE (NEGATIVE); LEUKOCYTE ESTERASE ,URINE 3+ (NEGATIVE); NITRITE, URINE NEGATIVE (NEGATIVE); PROTEIN,URINE 1+ mg/dl (NEGATIVE); UGLUCOSE NEGATIVE (NEGATIVE); UROBILINOGEN,URINE 0.2 EU/dL (0.2)
[2016-11-13 21:07] LABS: BACTERIA,URINE Moderate /HPF (None Seen); SQUAMOUS EPITHELIAL CELL,UR Rare /HPF (None Seen)
[2016-11-14] MEDS: SUCRALFATE 1 G/10 ML UDC GT SCH ×6 (00:11→21:06)
[2016-11-14] MEDS: TEMAZEPAM 7.5 MG CAPSULE GT PRN (01:07)
[2016-11-14] MEDS: ALBUTEROL FS 2.5 MG/0.5 ML VIAL.NEB NEB SCH ×4 (01:35→19:15)
[2016-11-14] MEDS: IPRATROPIUM NEB FS 0.5 MG/2.5 ML AMPUL.NEB IH SCH ×4 (01:35→19:15)
[2016-11-14] MEDS: ACETAMINOPHEN 650 MG/20 ML UDC- FOR SA PATIENTS ONLY GT PRN (02:44)
[2016-11-14] MEDS: FIBERSOURCE HN 1,000 ML BOTTLE GT PRN ×2 (04:46→17:21)
[2016-11-14] MEDS: POLYVINYL ALCOHOL 15 ML BOTTLE EACHEYE SCH ×3 (05:45→21:06)
[2016-11-14] MEDS: OMEPRAZOLE 20 MG CAPSULE.DR GT SCH (05:46)
--- NOTE | 2016-11-14 06:24 | NUR ---
PATIENT STABLE DURING THE NIGHT NO RESPIRATORY DISTRESS NOTED.WILL ENDORSE RESULTS OF THE LABS AND CXR TO RELAY TO MD,WBC 14.1 HGB 8.2,BUN 43 AND CXR WITH SUSPICIOUS FOR MULTIFOCAL PNA.LATEST TEMP 98.8 wILL CONTINUE TO MONITOR.
[2016-11-14 07:40] VITALS: BP 114/65
--- NOTE | 2016-11-14 08:30 | NUR ---
Relayed CBC, BMP and CXR result to Dr. Vance. Pt afebrile at this time, asymptomatic. BP 114/65, HR 77, RR 20, Temp 97.5. Order obtained to start pt on IV atb Zosyn and Vancomycin x 10days for elevated WBC and pneumonia. Orders noted and carried out. Pt notified of new orders. Pt's dtr Olivia notified via voicemail.
[2016-11-14] MEDS: OCUSOFT LID SCRUB TP SCH ×2 (09:00→17:00)
[2016-11-14] MEDS: CHLORHEXIDINE GLUCONATE 15 ML UDC MM SCH ×2 (09:00→17:00)
[2016-11-14] MEDS: ASCORBIC ACID 500 MG TABLET GT SCH (09:23)
[2016-11-14] MEDS: PROSOURCE / PROSTAT (PYXIS) 30 ML UDC GT SCH (09:23)
[2016-11-14] MEDS: MVI/MINERALS LIQUID (CEROVITE) GT SCH (09:23)
[2016-11-14] MEDS: MINERAL OIL/PETROLATUM,WHITE 454 GM JAR TP SCH ×2 (09:23→21:06)
[2016-11-14] MEDS: SERTRALINE HCL 25 MG TABLET GT SCH (09:23)
[2016-11-14] MEDS: Z GUARD REMEDY 4 OZ OINT TP SCH ×2 (09:24→21:06)
[2016-11-14] MEDS: HYDROGEN PEROXIDE 480 ML BOTTLE TP SCH ×2 (09:24→21:06)
[2016-11-14] MEDS: VANCOMYCIN HCL 0.75 GM in IV D5W 250 ML IV SCH (10:44)
[2016-11-14] MEDS: ZOSYN IVPB 4.5 G in IV D5W 50ml IV SCH ×2 (13:00→18:15)
--- NOTE | 2016-11-14 14:30 | NUR ---
Relayed preliminary urine c/s result to Dr. Vance: >100,000 gram negative rods; pending sensitivities. Pt already started on Vanco and Zosyn. No additional order given.
[2016-11-14 20:13] VITALS: BP 108/66
[2016-11-15] MEDS: SUCRALFATE 1 G/10 ML UDC GT SCH ×6 (01:18→21:00)
[2016-11-15] MEDS: ALBUTEROL FS 2.5 MG/0.5 ML VIAL.NEB NEB SCH ×4 (01:23→20:07)
[2016-11-15] MEDS: IPRATROPIUM NEB FS 0.5 MG/2.5 ML AMPUL.NEB IH SCH ×4 (01:23→20:07)
[2016-11-15] MEDS: POLYVINYL ALCOHOL 15 ML BOTTLE EACHEYE SCH ×3 (05:21→21:00)
[2016-11-15] MEDS: OMEPRAZOLE 20 MG CAPSULE.DR GT SCH (05:21)
[2016-11-15] MEDS: FIBERSOURCE HN 1,000 ML BOTTLE GT PRN (05:55)
[2016-11-15] MEDS: ZOSYN IVPB 4.5 G in IV D5W 50ml IV SCH ×4 (06:44→12:37)
[2016-11-15] MEDS: ACETAMINOPHEN 650 MG/20 ML UDC- FOR SA PATIENTS ONLY GT PRN (07:35)
[2016-11-15 08:06] VITALS: BP 119/73
[2016-11-15] MEDS: SERTRALINE HCL 25 MG TABLET GT SCH (08:15)
[2016-11-15] MEDS: CHLORHEXIDINE GLUCONATE 15 ML UDC MM SCH ×2 (08:15→16:06)
[2016-11-15] MEDS: MVI/MINERALS LIQUID (CEROVITE) GT SCH (08:15)
[2016-11-15] MEDS: PROSOURCE / PROSTAT (PYXIS) 30 ML UDC GT SCH (08:15)
[2016-11-15] MEDS: ASCORBIC ACID 500 MG TABLET GT SCH (08:15)
[2016-11-15] MEDS: Z GUARD REMEDY 4 OZ OINT TP SCH ×2 (09:00→21:00)
[2016-11-15] MEDS: OCUSOFT LID SCRUB TP SCH ×2 (09:00→16:06)
[2016-11-15] MEDS: HYDROGEN PEROXIDE 480 ML BOTTLE TP SCH ×2 (09:00→21:00)
[2016-11-15] MEDS: MINERAL OIL/PETROLATUM,WHITE 454 GM JAR TP SCH ×2 (09:00→21:00)
[2016-11-15] MEDS: MORPHINE SULFATE 10 MG/5 ML GT PRN (09:01)
--- NOTE | 2016-11-15 10:15 | NUR ---
Resident vomited x1 yellowish emesis with phlegm moderate amount noted ,abdomen soft non-distended positive bowel sounds on all quadrant,no c/o abdominal pain/discomfort.Alert and oriented verbally responsive no c/o chestpain/discomfort,no sob,no acute distress noted.Will notify Dr Vance and pt daughter.
--- NOTE | 2016-11-15 10:20 | NUR ---
Seen and examined by Dr Vance informed of pt episode of vomiting x1 yellowish emesis with phlegm noted Dr Vance order to Hold Feeding tubes for 2 hrs and give Zofran as ordered and to send sputum for culture with gram stain order noted and carried out.Resident and daughter made aware.
[2016-11-15] MEDS: VANCOMYCIN HCL 0.75 GM in IV D5W 250 ML IV SCH (10:44)
--- NOTE | 2016-11-15 14:20 | NUR ---
Reported urine culture result to Dr Vance >100,000 CFU/ML Klebsiella Oxytoca in the urine with new order DC IV Zosyn,Cefepime IV per pharmacy to dose x 10 days order noted and carried out.Resident and daughter made aware.
--- NOTE | 2016-11-15 16:40 | NUR ---
Received a call from [facility] regarding pt Cefepime dose per [facility] pharmacist Cefepime IV 1gm Q 12 hrs x 10 days for Klebsiella Oxytoca in the urine order noted and carried out Dr Pinky rincon.Resident and daughter made aware.
--- NOTE | 2016-11-15 17:00 | NUR ---
Initial dose of Cefepime 1gm IV given from [facility] for Klebsiella oxytoca in the urine no adverse reaction noted.No c/o abdominal discomfort,voiding freely without difficulty,no hematuria noted.Good pericare rendered.Water flushing via GT as ordered tolerated well.Needs attended and met. Will continue to monitor.
[2016-11-15] MEDS: CEFEPIME 1 GM in IV D5W 50 ML IV SCH (17:34)
[2016-11-15] MEDS ORDERED: CEFEPIME 1 GM in IV D5W 50 ML IV SCH (18:00)
[2016-11-15 19:58] VITALS: BP 107/56
[2016-11-16] MEDS: SUCRALFATE 1 G/10 ML UDC GT SCH ×6 (00:59→20:24)
[2016-11-16] MEDS: ALBUTEROL FS 2.5 MG/0.5 ML VIAL.NEB NEB SCH ×4 (01:30→19:46)
[2016-11-16] MEDS: IPRATROPIUM NEB FS 0.5 MG/2.5 ML AMPUL.NEB IH SCH ×4 (01:30→19:46)
[2016-11-16] MEDS: FIBERSOURCE HN 1,000 ML BOTTLE GT PRN ×2 (03:45→18:46)
[2016-11-16] MEDS: CEFEPIME 1 GM in IV D5W 50 ML IV SCH ×2 (03:58→17:48)
[2016-11-16] MEDS: OMEPRAZOLE 20 MG CAPSULE.DR GT SCH (05:17)
[2016-11-16] MEDS: POLYVINYL ALCOHOL 15 ML BOTTLE EACHEYE SCH ×3 (05:17→20:24)
--- NOTE | 2016-11-16 07:08 | NUR ---
Received male ryan pt on mechanical vent. Pt ryan is secure. Vent is plugged into a red outlet, alarms are audible, and BVM is at bedside. Addendum: 11/16/16 at 0708 by KAYLIN GRANADOS RT Amended: Links added.
[2016-11-16 07:57] VITALS: BP 100/59
[2016-11-16] MEDS: MINERAL OIL/PETROLATUM,WHITE 454 GM JAR TP SCH ×2 (09:53→20:24)
[2016-11-16] MEDS: SERTRALINE HCL 25 MG TABLET GT SCH (09:53)
[2016-11-16] MEDS: Z GUARD REMEDY 4 OZ OINT TP SCH ×2 (09:53→20:25)
[2016-11-16] MEDS: HYDROGEN PEROXIDE 480 ML BOTTLE TP SCH ×2 (09:53→20:24)
[2016-11-16] MEDS: OCUSOFT LID SCRUB TP SCH ×2 (09:53→17:45)
[2016-11-16] MEDS: PROSOURCE / PROSTAT (PYXIS) 30 ML UDC GT SCH (09:53)
[2016-11-16] MEDS: CHLORHEXIDINE GLUCONATE 15 ML UDC MM SCH ×2 (09:53→17:45)
[2016-11-16] MEDS: ASCORBIC ACID 500 MG TABLET GT SCH (09:53)
[2016-11-16] MEDS: MVI/MINERALS LIQUID (CEROVITE) GT SCH (09:53)
[2016-11-16] MEDS: VANCOMYCIN HCL 0.75 GM in IV D5W 250 ML IV SCH (10:30)
[2016-11-16] MEDS: ACETAMINOPHEN 650 MG/20 ML UDC- FOR SA PATIENTS ONLY GT PRN ×2 (11:41→14:21)
--- NOTE | 2016-11-16 13:14 | NUR ---
Pt had episode of elevated temp 101.7 earlier today. Tylenol PRN given and cooling measures done. No SOB/ no distress noted. Pt awake, responsive to verbal and tactile stimuli. Rechecked temp 99.0. Pt already on IV atb Vancomycin and Cefepime. Will continue to monitor.
--- NOTE | 2016-11-16 14:26 | NUR ---
Pt awake, watching TV. No SOB/ no distress noted. Temp 97.2.
[2016-11-16 19:45] VITALS: BP 99/60
[2016-11-17] MEDS: SUCRALFATE 1 G/10 ML UDC GT SCH ×6 (01:36→20:19)
[2016-11-17] MEDS: ALBUTEROL FS 2.5 MG/0.5 ML VIAL.NEB NEB SCH ×4 (01:56→20:14)
[2016-11-17] MEDS: IPRATROPIUM NEB FS 0.5 MG/2.5 ML AMPUL.NEB IH SCH ×4 (01:56→20:14)
[2016-11-17] MEDS: CEFEPIME 1 GM in IV D5W 50 ML IV SCH ×2 (05:00→17:46)
[2016-11-17] MEDS: POLYVINYL ALCOHOL 15 ML BOTTLE EACHEYE SCH ×3 (05:33→20:19)
[2016-11-17] MEDS: OMEPRAZOLE 20 MG CAPSULE.DR GT SCH (05:33)
[2016-11-17 08:00] VITALS: BP 102/61
[2016-11-17 08:12] VITALS: BP 102/61
[2016-11-17] MEDS: PROSOURCE / PROSTAT (PYXIS) 30 ML UDC GT SCH (09:47)
[2016-11-17] MEDS: Z GUARD REMEDY 4 OZ OINT TP SCH ×2 (09:47→20:19)
[2016-11-17] MEDS: CHLORHEXIDINE GLUCONATE 15 ML UDC MM SCH ×2 (09:47→16:55)
[2016-11-17] MEDS: ASCORBIC ACID 500 MG TABLET GT SCH (09:47)
[2016-11-17] MEDS: SERTRALINE HCL 25 MG TABLET GT SCH (09:47)
[2016-11-17] MEDS: OCUSOFT LID SCRUB TP SCH ×2 (09:47→16:55)
[2016-11-17] MEDS: MVI/MINERALS LIQUID (CEROVITE) GT SCH (09:47)
[2016-11-17] MEDS: HYDROGEN PEROXIDE 480 ML BOTTLE TP SCH ×2 (09:47→20:19)
[2016-11-17] MEDS: MINERAL OIL/PETROLATUM,WHITE 454 GM JAR TP SCH ×2 (09:47→20:19)
--- NOTE | 2016-11-17 09:48 | NUR ---
Clarified with Dr. Vance if pt still needs Vancomycin since Klebsiella in the urine is sensitive to Cefepime and pt is already on Cefepime. Dr. Vance said yes pt still needs Vancomycin. Relayed sputum culture result to Dr. Vance.
[2016-11-17 10:37] LABS: CREATININE 0.8 mg/dL (0.6-1.3)
[2016-11-17] MEDS: VANCOMYCIN HCL 0.75 GM in IV D5W 250 ML IV SCH (11:03)
--- NOTE | 2016-11-17 11:23 | NUR ---
Relayed Vancomycin trough 8 BUN 32 Cr 0.8 to IV pharmacist Sharan. He said to give the Vancomycin 750 mg today and he will give his recommendation later.
--- NOTE | 2016-11-17 14:00 | NUR ---
Received order to change Vancomycin to 1250 mg IV q 24 hours until 11/23/16. Vancomycin trough, BUN, Cr before 3rd dose on 11/20/16.
[2016-11-17] MEDS: FIBERSOURCE HN 1,000 ML BOTTLE GT PRN (14:45)
--- NOTE | 2016-11-17 19:08 | NUR ---
Seen by ASSISTIVE TECHNOLOGY TRAINER Isidra Ayala. Relayed sputum culture result to her, sensitivities still pending. Pt currently on Cefepime and Vancomycin. No new order.
[2016-11-18] MEDS: SUCRALFATE 1 G/10 ML UDC GT SCH ×6 (00:20→20:46)
[2016-11-18] MEDS: IPRATROPIUM NEB FS 0.5 MG/2.5 ML AMPUL.NEB IH SCH ×4 (01:30→20:20)
[2016-11-18] MEDS: ALBUTEROL FS 2.5 MG/0.5 ML VIAL.NEB NEB SCH ×4 (01:30→20:20)
[2016-11-18] MEDS: CEFEPIME 1 GM in IV D5W 50 ML IV SCH ×2 (05:00→17:38)
[2016-11-18] MEDS: FIBERSOURCE HN 1,000 ML BOTTLE GT PRN (05:03)
[2016-11-18] MEDS: OMEPRAZOLE 20 MG CAPSULE.DR GT SCH (05:04)
[2016-11-18] MEDS: POLYVINYL ALCOHOL 15 ML BOTTLE EACHEYE SCH ×3 (05:24→20:46)
[2016-11-18] MEDS: HYDROGEN PEROXIDE 480 ML BOTTLE TP SCH ×2 (09:32→20:49)
[2016-11-18] MEDS: MVI/MINERALS LIQUID (CEROVITE) GT SCH (09:32)
[2016-11-18] MEDS: MINERAL OIL/PETROLATUM,WHITE 454 GM JAR TP SCH ×2 (09:32→20:49)
[2016-11-18] MEDS: OCUSOFT LID SCRUB TP SCH ×2 (09:32→17:00)
[2016-11-18] MEDS: PROSOURCE / PROSTAT (PYXIS) 30 ML UDC GT SCH (09:32)
[2016-11-18] MEDS: SERTRALINE HCL 25 MG TABLET GT SCH (09:32)
[2016-11-18] MEDS: ASCORBIC ACID 500 MG TABLET GT SCH (09:32)
[2016-11-18] MEDS: CHLORHEXIDINE GLUCONATE 15 ML UDC MM SCH ×2 (09:32→17:00)
[2016-11-18] MEDS: Z GUARD REMEDY 4 OZ OINT TP SCH ×2 (09:33→20:50)
[2016-11-18] MEDS: VANCOMYCIN 1.25 GM in IV D5W 500 ML IV SCH (10:46)
--- NOTE | 2016-11-18 14:08 | NUR ---
Seen by RADHAMES Ayala. Received order to give Flagyl 500 mg GT q 8 hours for 2 weeks for loose stools.
[2016-11-18] MEDS ORDERED: VANCOMYCIN 1.25 GM in IV D5W 500 ML IV SCH (15:30)
[2016-11-18 20:00] VITALS: BP 101/63
[2016-11-18] MEDS: METRONIDAZOLE 500 MG TABLET PO SCH (20:47)
[2016-11-18] MEDS: MORPHINE SULFATE 10 MG/5 ML GT PRN (21:56)
[2016-11-19] MEDS: ALBUTEROL FS 2.5 MG/0.5 ML VIAL.NEB NEB SCH ×4 (00:57→19:50)
[2016-11-19] MEDS: IPRATROPIUM NEB FS 0.5 MG/2.5 ML AMPUL.NEB IH SCH ×4 (00:57→19:50)
--- NOTE | 2016-11-19 01:00 | NUR ---
RN NOTES Noted pt with b/p 74/48 HR 108, RR 14, T 98.7, spO2 100%. Pt placed in trendelenburg position. Pt alert and oriented wit no respiratory distress noted. Called traffic division commanding officer to notify. Will continue to monitor.
[2016-11-19] MEDS: SUCRALFATE 1 G/10 ML UDC GT SCH ×6 (01:11→21:54)
[2016-11-19] MEDS: FIBERSOURCE HN 1,000 ML BOTTLE GT PRN ×2 (01:11→21:55)
[2016-11-19] MEDS ORDERED: IV NS 0.9% 1,000 ML BAG IV ONE (01:20)
--- NOTE | 2016-11-19 01:20 | NUR ---
RN NOTES Received new orders from Dr. Pastor to give NS 1L IV bolus x1, then give NS @8oml/hr IV for hypotension, noted and carried out. Will continue to monitor pt closely. Addendum: 11/19/16 at 0849 by CHA LYN RN Also ordered for labs: CBC, BMP, MG, Phos, CXR.
[2016-11-19] MEDS ORDERED: IV NS 0.9% 2,000 ML ONE (02:04)
--- NOTE | 2016-11-19 02:30 | NUR ---
RN NOTES B/P reassessed and is 80/47, pt remains alert and oriented. Kept comfortable in bed. No respiratory distress noted. Will continue to monitor.
[2016-11-19] MEDS: IV NS 0.9% 1,000 ML BAG IV PRN ×2 (03:00→03:33)
--- NOTE | 2016-11-19 03:00 | NUR ---
RN NOTES Second NS liter started as ordered @80ml/hr. Will continue monitor closely.
[2016-11-19] MEDS: CEFEPIME 1 GM in IV D5W 50 ML IV SCH ×2 (05:00→21:30)
[2016-11-19] MEDS: POLYVINYL ALCOHOL 15 ML BOTTLE EACHEYE SCH ×3 (05:12→21:54)
[2016-11-19] MEDS: METRONIDAZOLE 500 MG TABLET PO SCH ×3 (05:13→21:30)
[2016-11-19] MEDS: OMEPRAZOLE 20 MG CAPSULE.DR GT SCH (05:13)
--- NOTE | 2016-11-19 06:30 | NUR ---
RN NOTES B/P 94/63, HR 70. Pt asleep at this time. Will continue to monitor and will endorse to following shift.
[2016-11-19 06:56] LABS: HEMATOCRIT 21 % (39-51); LYMPHOCYTES # (AUTO) 0.3 /CMM (0.8-4.8); LYMPHOCYTES % (AUTO) 1.7 % (20.0-44.0); MEAN CORPUSCULAR HEMOGLOBIN 28 PG (26.0-33.0); MEAN CORPUSCULAR HGB CONC 33 g/dl (31.0-36.0); MEAN CORPUSCULAR VOLUME 84 fL (80-96); MONOCYTES # (AUTO) 0.5 /CMM (0.1-1.30); MONOCYTES % (AUTO) 2.7 % (2.0-12.0); NEUTROPHILS # (AUTO) 17.4 /CMM (1.8-8.9); NEUTROPHILS % (AUTO) 95.6 % (43.0-81.0); PLATELET COUNT (AUTO) 348 /CMM (150-450); RDW COEFFICIENT OF VARIATION 15.9 (11.5-15.0); RED BLOOD CELL COUNT(AUTO) 2.51 MIL/uL (4.5-6.0); WHITE BLOOD COUNT (AUTO) 18.1 K/uL (4.3-11.0)
[2016-11-19 07:15] LABS: CALCIUM, SERUM 8.2 mg/dL (8.5-10.1); CARBON DIOXIDE 25 mmol/L (21-32); CHLORIDE 109 mmol/L (98-107); CREATININE 0.9 mg/dL (0.6-1.3); GLUCOSE 136 mg/dL (74-106); MAGNESIUM 1.9 mg/dL (1.8-2.4); POTASSIUM 3.9 mmol/L (3.5-5.1); SODIUM SERUM 143 mmol/L (136-145); UREA NITROGEN, BLOOD 34 mg/dL (7-18)
[2016-11-19 07:53] VITALS: BP 98/62
[2016-11-19] MEDS: CHLORHEXIDINE GLUCONATE 15 ML UDC MM SCH ×2 (09:00→17:39)
[2016-11-19] MEDS: OCUSOFT LID SCRUB TP SCH ×2 (09:00→17:00)
[2016-11-19] MEDS ORDERED: IV NS 0.9% 1,000 ML IV PRN (09:30)
[2016-11-19] MEDS: MVI/MINERALS LIQUID (CEROVITE) GT SCH (09:43)
[2016-11-19] MEDS: ASCORBIC ACID 500 MG TABLET GT SCH (09:43)
[2016-11-19] MEDS: PROSOURCE / PROSTAT (PYXIS) 30 ML UDC GT SCH (09:43)
[2016-11-19] MEDS: MINERAL OIL/PETROLATUM,WHITE 454 GM JAR TP SCH ×2 (09:43→21:54)
[2016-11-19] MEDS: SERTRALINE HCL 25 MG TABLET GT SCH (09:43)
[2016-11-19] MEDS: Z GUARD REMEDY 4 OZ OINT TP SCH ×2 (09:44→21:54)
[2016-11-19] MEDS: HYDROGEN PEROXIDE 480 ML BOTTLE TP SCH ×2 (09:44→21:54)
[2016-11-19] MEDS: VANCOMYCIN 1.25 GM in IV D5W 500 ML IV SCH (10:43)
--- NOTE | 2016-11-19 13:30 | NUR ---
PAGED AFTER RT NOTIFIED RE: SOB. ORDERS RECEIVED. WILL CARRY OUT. IVF STOPPED
[2016-11-19] MEDS ORDERED: BUMETANIDE INJ 2 MG in IV NS 0.9% 32 ML IV ONE ×2 (14:00→19:30)
--- NOTE | 2016-11-19 14:50 | NUR ---
IV MED RECEIVED BUMEX
[2016-11-19] MEDS: MORPHINE SULFATE 10 MG/5 ML GT PRN (15:30)
[2016-11-19] MEDS ORDERED: FUROSEMIDE 20 MG/2 ML VIAL IV ONE (16:00)
--- NOTE | 2016-11-19 16:58 | NUR ---
PAGED NOTIFIED OF RESPIRATORY RATE. CXR ORDERED. OK TO HOLD PRBC TRANSFUSION UNTIL RESPIRATORY RATE STABILIZES
--- NOTE | 2016-11-19 17:43 | NUR ---
AWAITING STAT CXR RESULTS
--- NOTE | 2016-11-19 18:00 | NUR ---
RT NOTE: PATIENT REMAINS TACHYPNEIC ON HT 70 VENT WITH SHILEY 6XL TRACH IN PLACE. NURSE, CHARGE NURSE (RADHA), AND MD AWARE. ALARMS VERIFIED AND AUDIBLE. VENT PLUGGED INTO RED OUTLET. AMBU BAG AT [facility].rt
--- NOTE | 2016-11-19 19:13 | NUR ---
RECEIVED CALL FROM [employer] SUGGESTING TO ADMINISTER BUMEX THROUGH [facility] IN SENSITIVITY TO TIME. MED ORDERED. WILL CARRY OUT.
[2016-11-19 20:08] VITALS: BP 103/63
[2016-11-19] MEDS ORDERED: BUMETANIDE INJ 0.25 MG/ML VIAL ONE (23:07)
[2016-11-19] MEDS ORDERED: IV NS 0.9% 50 ML IV ONE (23:20)
[2016-11-20] MEDS: IPRATROPIUM NEB FS 0.5 MG/2.5 ML AMPUL.NEB IH SCH ×4 (01:29→20:02)
[2016-11-20] MEDS: ALBUTEROL FS 2.5 MG/0.5 ML VIAL.NEB NEB SCH ×4 (01:29→20:02)
[2016-11-20] MEDS: SUCRALFATE 1 G/10 ML UDC GT SCH ×6 (01:30→20:21)
[2016-11-20 02:04] VITALS: BP 119/88
--- NOTE | 2016-11-20 02:04 | NUR ---
SA RN NOTES 1ST UNIT PRBC STARTED. VSS. AFEBRILE. WILL CONTINUE TO MONITOR.
[2016-11-20 02:20] VITALS: BP 125/81
--- NOTE | 2016-11-20 02:20 | NUR ---
RN NOTES 1ST UNIT PRBC INFUSING WELL. NO S/SX OF TRANSFUSION REACTION NOTED. WILL CONTINUE TO MONITOR.
[2016-11-20 05:30] VITALS: BP 110/74
--- NOTE | 2016-11-20 05:30 | NUR ---
RN NOTES 1ST UNIT PRBC INFUSED. VSS. AFEBRILE. NO S/SX OF TRANSFUSION REACTION NOTED. WILL CONTINUE TO MONITOR.
[2016-11-20] MEDS: OMEPRAZOLE 20 MG CAPSULE.DR GT SCH (05:59)
[2016-11-20] MEDS: POLYVINYL ALCOHOL 15 ML BOTTLE EACHEYE SCH ×3 (05:59→20:21)
[2016-11-20] MEDS: METRONIDAZOLE 500 MG TABLET PO SCH (05:59)
[2016-11-20] MEDS: CEFEPIME 1 GM in IV D5W 50 ML IV SCH ×2 (06:37→17:33)
--- NOTE | 2016-11-20 06:59 | NUR ---
SA RN NOTES AWAKE & ALERT. NOT IN ANY DISTRESS. NO SOB NOTED. NO S/SX OF PAIN OR DISCOMFORT AT THIS TIME. WITH SAME VENT SETTINGS. WITH IV-HL PATENT & INTACT. AM CARE DONE. MONITORED ACCORDINGLY. CALL LIGHT WITHIN REACH. BED IN LOWEST POSITION. SR UP X 3 FOR SAFETY. WILL ENDORSE TO NEXT SHIFT.
[2016-11-20 07:40] LABS: EOSINOPHILS # (AUTO) 0.1 /CMM (0.0-0.7); EOSINOPHILS % (AUTO) 0.5 % (0.0-6.0); HEMATOCRIT 26 % (39-51); HEMOGLOBIN 8.5 g/dL (13.5-17.5); LYMPHOCYTES # (AUTO) 0.4 /CMM (0.8-4.8); LYMPHOCYTES % (AUTO) 3.5 % (20.0-44.0); MEAN CORPUSCULAR HEMOGLOBIN 28 PG (26.0-33.0); MEAN CORPUSCULAR HGB CONC 33 g/dl (31.0-36.0); MEAN CORPUSCULAR VOLUME 83 fL (80-96); MONOCYTES # (AUTO) 0.6 /CMM (0.1-1.30); NEUTROPHILS # (AUTO) 9.4 /CMM (1.8-8.9); PLATELET COUNT (AUTO) 321 /CMM (150-450); RDW COEFFICIENT OF VARIATION 16.4 (11.5-15.0); RED BLOOD CELL COUNT(AUTO) 3.11 MIL/uL (4.5-6.0); WHITE BLOOD COUNT (AUTO) 10.4 K/uL (4.3-11.0)
[2016-11-20 07:44] VITALS: BP 132/75
[2016-11-20 08:00] LABS: CALCIUM, SERUM 8.2 mg/dL (8.5-10.1); CARBON DIOXIDE 28 mmol/L (21-32); CHLORIDE 105 mmol/L (98-107); CREATININE 0.8 mg/dL (0.6-1.3); GLUCOSE 139 mg/dL (74-106); MAGNESIUM 1.9 mg/dL (1.8-2.4); PHOSPHORUS 3.7 mg/dL (2.5-4.9); POTASSIUM 3.8 mmol/L (3.5-5.1); SODIUM SERUM 141 mmol/L (136-145); UREA NITROGEN, BLOOD 35 mg/dL (7-18)
[2016-11-20 08:42] LABS: BAND % (MANUAL) 7 % (0.0-5.0); EOSINOPHILS % (MANUAL) 1 % (0-4); LYMPHOCYTES % (MANUAL) 4 % (16-48); MONOCYTES % (MANUAL) 4 % (0-11.0); NEUTROPHILS % (MANUAL) 84 (42-76)
[2016-11-20] MEDS: OCUSOFT LID SCRUB TP SCH ×2 (09:00→17:30)
[2016-11-20] MEDS: MVI/MINERALS LIQUID (CEROVITE) GT SCH (09:39)
[2016-11-20] MEDS: HYDROGEN PEROXIDE 480 ML BOTTLE TP SCH ×2 (09:40→20:21)
[2016-11-20] MEDS: Z GUARD REMEDY 4 OZ OINT TP SCH ×2 (09:40→20:21)
[2016-11-20] MEDS: SERTRALINE HCL 25 MG TABLET GT SCH (09:40)
[2016-11-20] MEDS: MINERAL OIL/PETROLATUM,WHITE 454 GM JAR TP SCH ×2 (09:40→20:21)
[2016-11-20] MEDS: CHLORHEXIDINE GLUCONATE 15 ML UDC MM SCH ×2 (09:40→17:30)
[2016-11-20] MEDS: ASCORBIC ACID 500 MG TABLET GT SCH (09:40)
[2016-11-20] MEDS: PROSOURCE / PROSTAT (PYXIS) 30 ML UDC GT SCH (09:40)
[2016-11-20 10:04] LABS: CREATININE 0.9 mg/dL (0.6-1.3)
--- NOTE | 2016-11-20 10:59 | NUR ---
Yamil faxed podiatry referral to Dr. Mills (radio division officer- [address] [place] [address] , FAX: [phone]) for follow up appt.
[2016-11-20] MEDS: VANCOMYCIN 1.25 GM in IV D5W 500 ML IV SCH (11:13)
--- NOTE | 2016-11-20 12:03 | NUR ---
Pt tachypneic, breathing 32-34 bpm. Pt denied any pain, no wheezing, O2 sat 100%. Relayed lab results, CXR, and sputum C/S to RADHAMES Ayala. 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 RADHAMES Ayala also said to give pt a breathing treatment, notified RT Renu. Addendum: 11/20/16 at 1243 by NABOR GARCIA RN RADHAMES Ayala also ordered to do ROJELIO.
[2016-11-20 12:33] LABS: ABG BASE EXCESS 2.1 mmol/L; ABG PCO2 38.3 mmHg (35.0-45.0); ABG PH 7.452 (7.350-7.450); ABG PO2 98.7 mmHg (75.0-100.0); AaDO2 142.5 mmHg; COHb 0.6 % (0.5-1.5); MetHb 0.9 % (0.0-1.5); O2Hb 95.5 % (94.0-97.0); PEEP,BG 5 cm H2O; SITE, ABG Right Radial; VT, ABG 400 mL
[2016-11-20] MEDS: METRONIDAZOLE 500 MG TABLET GT SCH ×2 (12:43→20:21)
--- NOTE | 2016-11-20 12:43 | NUR ---
ABG result relayed to RADHAMES Ayala. pH 7.452 pCO2 38.3 pO2 98.7 HCO3 26.1 BE 2.1. Addendum: 11/20/16 at 1501 by NABOR AGRCIA RN Pt's RR 16-17, appears comfortable. RADHAMES rincon.
--- NOTE | 2016-11-20 14:57 | NUR ---
Received order to give Levaquin 750 mg IV q 48 hours for 10 days, total of 5 doses, for Acinetobacter baumannii in sputum. Addendum: 11/20/16 at 1458 by NABOR GARCIA RN Dillan Berry
[2016-11-20] MEDS: LEVOFLOXACIN 750 MG /D5W 150ML 750 MG in PREMIX 1 EA IV SCH (18:51)
[2016-11-20 19:59] VITALS: BP 106/68
[2016-11-21] MEDS: SUCRALFATE 1 G/10 ML UDC GT SCH ×6 (00:06→20:48)
[2016-11-21] MEDS: TEMAZEPAM 7.5 MG CAPSULE GT PRN (00:20)
[2016-11-21] MEDS: IPRATROPIUM NEB FS 0.5 MG/2.5 ML AMPUL.NEB IH SCH ×4 (02:28→19:44)
[2016-11-21] MEDS: ALBUTEROL FS 2.5 MG/0.5 ML VIAL.NEB NEB SCH ×4 (02:28→19:44)
[2016-11-21] MEDS: FIBERSOURCE HN 1,000 ML BOTTLE GT PRN ×2 (02:40→19:54)
[2016-11-21] MEDS: CEFEPIME 1 GM in IV D5W 50 ML IV SCH ×2 (05:01→17:21)
[2016-11-21] MEDS: POLYVINYL ALCOHOL 15 ML BOTTLE EACHEYE SCH ×3 (05:49→20:48)
[2016-11-21] MEDS: OMEPRAZOLE 20 MG CAPSULE.DR GT SCH (05:56)
[2016-11-21] MEDS: METRONIDAZOLE 500 MG TABLET GT SCH ×3 (05:56→20:48)
[2016-11-21 07:42] VITALS: BP 105/69
[2016-11-21] MEDS: ASCORBIC ACID 500 MG TABLET GT SCH (09:00)
[2016-11-21] MEDS: MINERAL OIL/PETROLATUM,WHITE 454 GM JAR TP SCH ×2 (09:00→20:48)
[2016-11-21] MEDS: CHLORHEXIDINE GLUCONATE 15 ML UDC MM SCH ×2 (09:00→16:56)
[2016-11-21] MEDS: SERTRALINE HCL 25 MG TABLET GT SCH (09:00)
[2016-11-21] MEDS: MVI/MINERALS LIQUID (CEROVITE) GT SCH (09:00)
[2016-11-21] MEDS: Z GUARD REMEDY 4 OZ OINT TP SCH ×2 (09:00→20:48)
[2016-11-21] MEDS: HYDROGEN PEROXIDE 480 ML BOTTLE TP SCH ×2 (09:00→20:48)
[2016-11-21] MEDS: OCUSOFT LID SCRUB TP SCH ×2 (09:00→16:56)
[2016-11-21] MEDS: PROSOURCE / PROSTAT (PYXIS) 30 ML UDC GT SCH (09:00)
[2016-11-21] MEDS: MORPHINE SULFATE 10 MG/5 ML GT PRN (10:02)
--- NOTE | 2016-11-21 15:35 | NUR ---
INTERDISCIPLINARY PLAN OF CARE CONFERENCE was held today. Resident's dtr was invited but was unable to attend. Dr. Reees and the Interdisciplinary Team reviewed the current plan of care in detail. Resident received a blood transfusion 11/20/2016. Resident was positive for C-Diff and is currently on isolation. Resident will have a CBC lab and chest x-ray on Thursday11/24/2016.
[2016-11-21 20:51] VITALS: BP 113/65
[2016-11-22] MEDS: SUCRALFATE 1 G/10 ML UDC GT SCH ×6 (01:01→21:25)
[2016-11-22] MEDS: IPRATROPIUM NEB FS 0.5 MG/2.5 ML AMPUL.NEB IH SCH ×4 (02:23→19:28)
[2016-11-22] MEDS: ALBUTEROL FS 2.5 MG/0.5 ML VIAL.NEB NEB SCH ×4 (02:23→19:28)
[2016-11-22] MEDS: CEFEPIME 1 GM in IV D5W 50 ML IV SCH ×2 (05:24→17:35)
[2016-11-22] MEDS: METRONIDAZOLE 500 MG TABLET GT SCH ×3 (06:00→21:31)
[2016-11-22] MEDS: POLYVINYL ALCOHOL 15 ML BOTTLE EACHEYE SCH ×3 (06:00→21:25)
[2016-11-22] MEDS: OMEPRAZOLE 20 MG CAPSULE.DR GT SCH (06:18)
[2016-11-22 08:01] VITALS: BP 109/71
[2016-11-22] MEDS: CHLORHEXIDINE GLUCONATE 15 ML UDC MM SCH ×2 (09:00→16:34)
[2016-11-22] MEDS: SERTRALINE HCL 25 MG TABLET GT SCH (09:00)
[2016-11-22] MEDS: ASCORBIC ACID 500 MG TABLET GT SCH (09:00)
[2016-11-22] MEDS: HYDROGEN PEROXIDE 480 ML BOTTLE TP SCH ×2 (09:00→21:31)
[2016-11-22] MEDS: PROSOURCE / PROSTAT (PYXIS) 30 ML UDC GT SCH (09:00)
[2016-11-22] MEDS: OCUSOFT LID SCRUB TP SCH ×2 (09:00→16:34)
[2016-11-22] MEDS: MINERAL OIL/PETROLATUM,WHITE 454 GM JAR TP SCH ×2 (09:00→21:31)
[2016-11-22] MEDS: Z GUARD REMEDY 4 OZ OINT TP SCH ×2 (09:00→21:31)
[2016-11-22] MEDS: MVI/MINERALS LIQUID (CEROVITE) GT SCH (09:00)
[2016-11-22] MEDS: FIBERSOURCE HN 1,000 ML BOTTLE GT PRN (13:48)
[2016-11-22] MEDS: LEVOFLOXACIN 750 MG /D5W 150ML 750 MG in PREMIX 1 EA IV SCH (18:06)
[2016-11-22 20:06] VITALS: BP 109/74
[2016-11-22] MEDS: ZINC OXIDE 30 GM TUBE TP SCH (21:31)
[2016-11-22] MEDS: TEMAZEPAM 7.5 MG CAPSULE GT PRN (22:55)
[2016-11-23] MEDS: SUCRALFATE 1 G/10 ML UDC GT SCH ×6 (00:17→20:40)
[2016-11-23] MEDS: FIBERSOURCE HN 1,000 ML BOTTLE GT PRN (00:19)
[2016-11-23] MEDS: ALBUTEROL FS 2.5 MG/0.5 ML VIAL.NEB NEB SCH ×4 (01:43→19:37)
[2016-11-23] MEDS: IPRATROPIUM NEB FS 0.5 MG/2.5 ML AMPUL.NEB IH SCH ×4 (01:43→19:36)
[2016-11-23] MEDS: CEFEPIME 1 GM in IV D5W 50 ML IV SCH ×2 (05:00→17:00)
[2016-11-23] MEDS: POLYVINYL ALCOHOL 15 ML BOTTLE EACHEYE SCH ×3 (05:38→20:39)
[2016-11-23] MEDS: OMEPRAZOLE 20 MG CAPSULE.DR GT SCH (05:39)
[2016-11-23] MEDS: METRONIDAZOLE 500 MG TABLET GT SCH ×3 (05:39→20:41)
[2016-11-23 07:43] VITALS: BP 124/73
[2016-11-23] MEDS: HYDROGEN PEROXIDE 480 ML BOTTLE TP SCH ×2 (09:00→20:41)
[2016-11-23] MEDS: ASCORBIC ACID 500 MG TABLET GT SCH (09:00)
[2016-11-23] MEDS: CHLORHEXIDINE GLUCONATE 15 ML UDC MM SCH ×2 (09:00→17:00)
[2016-11-23] MEDS: OCUSOFT LID SCRUB TP SCH ×2 (09:00→17:00)
[2016-11-23] MEDS: PROSOURCE / PROSTAT (PYXIS) 30 ML UDC GT SCH (09:00)
[2016-11-23] MEDS: MVI/MINERALS LIQUID (CEROVITE) GT SCH (09:00)
[2016-11-23] MEDS: SERTRALINE HCL 25 MG TABLET GT SCH (09:00)
[2016-11-23] MEDS: MINERAL OIL/PETROLATUM,WHITE 454 GM JAR TP SCH ×2 (09:00→20:41)
[2016-11-23] MEDS: Z GUARD REMEDY 4 OZ OINT TP SCH ×2 (09:00→20:41)
[2016-11-23] MEDS: ZINC OXIDE 30 GM TUBE TP SCH ×2 (09:00→20:41)
[2016-11-23 19:55] VITALS: BP 108/67
[2016-11-24] MEDS: SUCRALFATE 1 G/10 ML UDC GT SCH ×6 (00:24→20:35)
[2016-11-24] MEDS: ALBUTEROL FS 2.5 MG/0.5 ML VIAL.NEB NEB SCH ×4 (01:38→20:01)
[2016-11-24] MEDS: IPRATROPIUM NEB FS 0.5 MG/2.5 ML AMPUL.NEB IH SCH ×4 (01:38→20:01)
[2016-11-24] MEDS: CEFEPIME 1 GM in IV D5W 50 ML IV SCH ×2 (05:00→16:22)
[2016-11-24] MEDS: POLYVINYL ALCOHOL 15 ML BOTTLE EACHEYE SCH ×3 (05:20→20:35)
[2016-11-24] MEDS: METRONIDAZOLE 500 MG TABLET GT SCH ×3 (05:20→20:36)
[2016-11-24] MEDS: OMEPRAZOLE 20 MG CAPSULE.DR GT SCH (05:21)
[2016-11-24 06:43] LABS: EOSINOPHILS # (AUTO) 0.1 /CMM (0.0-0.7); EOSINOPHILS % (AUTO) 1.3 % (0.0-6.0); HEMATOCRIT 26 % (39-51); HEMOGLOBIN 8.6 g/dL (13.5-17.5); LYMPHOCYTES # (AUTO) 1.1 /CMM (0.8-4.8); LYMPHOCYTES % (AUTO) 11.9 % (20.0-44.0); MEAN CORPUSCULAR HEMOGLOBIN 27 PG (26.0-33.0); MEAN CORPUSCULAR HGB CONC 33 g/dl (31.0-36.0); MEAN CORPUSCULAR VOLUME 84 fL (80-96); MONOCYTES # (AUTO) 0.6 /CMM (0.1-1.30); MONOCYTES % (AUTO) 6.4 % (2.0-12.0); NEUTROPHILS # (AUTO) 7.6 /CMM (1.8-8.9); NEUTROPHILS % (AUTO) 80.4 % (43.0-81.0); PLATELET COUNT (AUTO) 424 /CMM (150-450); RDW COEFFICIENT OF VARIATION 16.4 (11.5-15.0); RED BLOOD CELL COUNT(AUTO) 3.14 MIL/uL (4.5-6.0); WHITE BLOOD COUNT (AUTO) 9.5 K/uL (4.3-11.0)
[2016-11-24 08:09] VITALS: BP 116/81
[2016-11-24] MEDS: OCUSOFT LID SCRUB TP SCH ×2 (09:00→17:00)
[2016-11-24] MEDS: MVI/MINERALS LIQUID (CEROVITE) GT SCH (09:00)
[2016-11-24] MEDS: PROSOURCE / PROSTAT (PYXIS) 30 ML UDC GT SCH (09:00)
[2016-11-24] MEDS: ASCORBIC ACID 500 MG TABLET GT SCH (09:00)
[2016-11-24] MEDS: ZINC OXIDE 30 GM TUBE TP SCH ×2 (09:00→20:36)
[2016-11-24] MEDS: HYDROGEN PEROXIDE 480 ML BOTTLE TP SCH ×2 (09:00→20:36)
[2016-11-24] MEDS: MINERAL OIL/PETROLATUM,WHITE 454 GM JAR TP SCH ×2 (09:00→20:36)
[2016-11-24] MEDS: CHLORHEXIDINE GLUCONATE 15 ML UDC MM SCH ×2 (09:00→17:00)
[2016-11-24] MEDS: Z GUARD REMEDY 4 OZ OINT TP SCH ×2 (09:00→20:36)
[2016-11-24] MEDS: SERTRALINE HCL 25 MG TABLET GT SCH (09:00)
[2016-11-24] MEDS: FIBERSOURCE HN 1,000 ML BOTTLE GT PRN (11:08)
--- NOTE | 2016-11-24 15:29 | NUR ---
SW spoke to the resident's dtr Olivia Olivo who stated that he was going to come and see the resident today, as she is working tomorrow. She stated that she is currently at the office of social security taking care of resident's finances. She stated that she will be bringing a form for him to sign, which would give her access to his SSI benefits. Since patient is alert, patient able to sign or make a herminia on his behalf.
[2016-11-24] MEDS: LEVOFLOXACIN 750 MG /D5W 150ML 750 MG in PREMIX 1 EA IV SCH (17:32)
[2016-11-24 19:49] VITALS: BP 98/64
[2016-11-25] MEDS: SUCRALFATE 1 G/10 ML UDC GT SCH ×7 (00:14→20:28)
[2016-11-25] MEDS: ALBUTEROL FS 2.5 MG/0.5 ML VIAL.NEB NEB SCH ×4 (02:08→20:02)
[2016-11-25] MEDS: IPRATROPIUM NEB FS 0.5 MG/2.5 ML AMPUL.NEB IH SCH ×4 (02:08→20:02)
[2016-11-25] MEDS: FIBERSOURCE HN 1,000 ML BOTTLE GT PRN ×2 (03:28→17:57)
[2016-11-25] MEDS: CEFEPIME 1 GM in IV D5W 50 ML IV SCH ×2 (05:43→17:48)
[2016-11-25] MEDS: OMEPRAZOLE 20 MG CAPSULE.DR GT SCH (05:44)
[2016-11-25] MEDS: METRONIDAZOLE 500 MG TABLET GT SCH ×3 (05:44→20:28)
[2016-11-25] MEDS: POLYVINYL ALCOHOL 15 ML BOTTLE EACHEYE SCH ×3 (05:44→20:28)
[2016-11-25 08:13] VITALS: BP 109/71
[2016-11-25] MEDS: MVI/MINERALS LIQUID (CEROVITE) GT SCH (09:37)
[2016-11-25] MEDS: CHLORHEXIDINE GLUCONATE 15 ML UDC MM SCH ×3 (09:37→17:12)
[2016-11-25] MEDS: ASCORBIC ACID 500 MG TABLET GT SCH (09:37)
[2016-11-25] MEDS: SERTRALINE HCL 25 MG TABLET GT SCH (09:37)
[2016-11-25] MEDS: MINERAL OIL/PETROLATUM,WHITE 454 GM JAR TP SCH ×2 (09:37→20:29)
[2016-11-25] MEDS: PROSOURCE / PROSTAT (PYXIS) 30 ML UDC GT SCH (09:37)
[2016-11-25] MEDS: Z GUARD REMEDY 4 OZ OINT TP SCH ×2 (09:38→20:29)
[2016-11-25] MEDS: HYDROGEN PEROXIDE 480 ML BOTTLE TP SCH ×2 (09:38→20:29)
[2016-11-25] MEDS: ZINC OXIDE 30 GM TUBE TP SCH ×2 (09:38→20:29)
[2016-11-25] MEDS: OCUSOFT LID SCRUB TP SCH ×3 (09:38→17:13)
[2016-11-25] MEDS ORDERED: TEMAZEPAM 7.5 MG CAPSULE GT PRN (17:00)
[2016-11-25] MEDS ORDERED: HYDROGEN PEROXIDE 480 ML BOTTLE TP PRN (17:00)
--- NOTE | 2016-11-25 18:03 | NUR ---
Seen by Dr. Vance. Received order to DC Levaquin. He said Levaquin can worsen C diff.
--- NOTE | 2016-11-25 18:23 | NUR ---
Late entry for 11/24/16 Seen by ELEVATOR TENDER Isidra Ayala. Relayed CBC and CXR results to her. No new order.
[2016-11-25 19:50] VITALS: BP 96/58
[2016-11-26] MEDS: SUCRALFATE 1 G/10 ML UDC GT SCH ×6 (00:28→21:50)
[2016-11-26] MEDS: IPRATROPIUM NEB FS 0.5 MG/2.5 ML AMPUL.NEB IH SCH ×4 (01:22→19:37)
[2016-11-26] MEDS: ALBUTEROL FS 2.5 MG/0.5 ML VIAL.NEB NEB SCH ×4 (01:22→19:37)
[2016-11-26] MEDS: METRONIDAZOLE 500 MG TABLET GT SCH ×3 (05:00→21:50)
[2016-11-26] MEDS: POLYVINYL ALCOHOL 15 ML BOTTLE EACHEYE SCH ×3 (05:00→21:50)
[2016-11-26] MEDS: OMEPRAZOLE 20 MG CAPSULE.DR GT SCH (06:33)
[2016-11-26 07:45] VITALS: BP 118/67
[2016-11-26] MEDS: PROSOURCE / PROSTAT (PYXIS) 30 ML UDC GT SCH (08:50)
[2016-11-26] MEDS: SERTRALINE HCL 25 MG TABLET GT SCH (08:50)
[2016-11-26] MEDS: MVI/MINERALS LIQUID (CEROVITE) GT SCH (08:50)
[2016-11-26] MEDS: ASCORBIC ACID 500 MG TABLET GT SCH (08:50)
[2016-11-26] MEDS: CHLORHEXIDINE GLUCONATE 15 ML UDC MM SCH ×2 (08:51→16:57)
[2016-11-26] MEDS: MINERAL OIL/PETROLATUM,WHITE 454 GM JAR TP SCH ×2 (08:51→21:50)
[2016-11-26] MEDS: HYDROGEN PEROXIDE 480 ML BOTTLE TP SCH ×2 (08:52→21:50)
[2016-11-26] MEDS: OCUSOFT LID SCRUB TP SCH ×2 (08:52→16:57)
[2016-11-26] MEDS: Z GUARD REMEDY 4 OZ OINT TP SCH ×2 (08:52→21:50)
[2016-11-26] MEDS: ZINC OXIDE 30 GM TUBE TP SCH ×2 (08:52→21:50)
[2016-11-26 20:00] VITALS: BP 99/59
[2016-11-26] MEDS: FIBERSOURCE HN 1,000 ML BOTTLE GT PRN (22:26)
[2016-11-27] MEDS: SUCRALFATE 1 G/10 ML UDC GT SCH ×6 (00:46→21:25)
[2016-11-27] MEDS: ALBUTEROL FS 2.5 MG/0.5 ML VIAL.NEB NEB SCH ×4 (02:16→19:23)
[2016-11-27] MEDS: IPRATROPIUM NEB FS 0.5 MG/2.5 ML AMPUL.NEB IH SCH ×4 (02:16→19:23)
[2016-11-27] MEDS: POLYVINYL ALCOHOL 15 ML BOTTLE EACHEYE SCH ×3 (05:09→21:28)
[2016-11-27] MEDS: METRONIDAZOLE 500 MG TABLET GT SCH ×3 (05:09→21:25)
[2016-11-27] MEDS: OMEPRAZOLE 20 MG CAPSULE.DR GT SCH (05:10)
--- NOTE | 2016-11-27 06:45 | NUR ---
Pt noted with blood in the stool mixed with mucus in moderate amount.No active bleeding noted.No complained of any pain.No distress noted,will continue to monitor and will endorse to the next shift.
[2016-11-27 07:16] VITALS: BP 120/80
--- NOTE | 2016-11-27 08:07 | NUR ---
Social Service Section of [employer] (1st quarter) completed. Resident is alert x2 but has a difficult time communicating. He is able to convey his needs by mouthing words and responding to yes or no questions. His dtr Olivia is involved in his care but she does not visit often. She is in the process of assisting the resident in obtaining social security benefits. Sister Elizabeth is also involved but she lives in [place]. She calls often to speak with the resident. She feels that due to resident's current medical condition, he will be a resident of [facility] long-term.
[2016-11-27] MEDS: MINERAL OIL/PETROLATUM,WHITE 454 GM JAR TP SCH ×2 (09:00→21:25)
[2016-11-27] MEDS: SERTRALINE HCL 25 MG TABLET GT SCH (09:00)
[2016-11-27] MEDS: PROSOURCE / PROSTAT (PYXIS) 30 ML UDC GT SCH (09:00)
[2016-11-27] MEDS: HYDROGEN PEROXIDE 480 ML BOTTLE TP SCH ×2 (09:00→21:25)
[2016-11-27] MEDS: ZINC OXIDE 30 GM TUBE TP SCH ×2 (09:00→21:27)
[2016-11-27] MEDS: Z GUARD REMEDY 4 OZ OINT TP SCH ×3 (09:00→21:27)
[2016-11-27] MEDS: CHLORHEXIDINE GLUCONATE 15 ML UDC MM SCH ×2 (09:00→17:00)
[2016-11-27] MEDS: OCUSOFT LID SCRUB TP SCH ×2 (09:00→17:00)
[2016-11-27] MEDS: ASCORBIC ACID 500 MG TABLET GT SCH (09:00)
[2016-11-27] MEDS: MVI/MINERALS LIQUID (CEROVITE) GT SCH (09:00)
--- NOTE | 2016-11-27 11:07 | NUR ---
Seen by RADHAMES Ayala. Notified her of blood in the pt's stool as endorsed by night charge nurse. RADHAMES Ayala said to monitor for now since pt has no complaints of pain or discomfort. She said the blood might be from the pt's hemorrhoids. Pt having frequent bowel movements and is on Flagyl for C diff.
[2016-11-27] MEDS: FIBERSOURCE HN 1,000 ML BOTTLE GT PRN (19:04)
[2016-11-27 20:03] VITALS: BP 104/62
[2016-11-27] MEDS: CLOTRIMAZOLE/BETAMETASONE DIPROPIONATE 15 GM TUBE TP SCH (21:25)
[2016-11-28] MEDS: SUCRALFATE 1 G/10 ML UDC GT SCH ×6 (00:13→21:23)
[2016-11-28] MEDS: IPRATROPIUM NEB FS 0.5 MG/2.5 ML AMPUL.NEB IH SCH ×4 (01:45→20:16)
[2016-11-28] MEDS: ALBUTEROL FS 2.5 MG/0.5 ML VIAL.NEB NEB SCH ×4 (01:45→20:16)
[2016-11-28] MEDS: METRONIDAZOLE 500 MG TABLET GT SCH ×3 (05:30→21:23)
[2016-11-28] MEDS: OMEPRAZOLE 20 MG CAPSULE.DR GT SCH (05:30)
[2016-11-28] MEDS: POLYVINYL ALCOHOL 15 ML BOTTLE EACHEYE SCH ×3 (05:30→21:23)
[2016-11-28] MEDS: FIBERSOURCE HN 1,000 ML BOTTLE GT PRN (07:04)
[2016-11-28 08:04] VITALS: BP 106/73
[2016-11-28] MEDS: HYDROGEN PEROXIDE 480 ML BOTTLE TP SCH ×2 (09:51→21:23)
[2016-11-28] MEDS: PROSOURCE / PROSTAT (PYXIS) 30 ML UDC GT SCH (09:51)
[2016-11-28] MEDS: Z GUARD REMEDY 4 OZ OINT TP SCH ×4 (09:51→21:23)
[2016-11-28] MEDS: SERTRALINE HCL 25 MG TABLET GT SCH (09:51)
[2016-11-28] MEDS: MVI/MINERALS LIQUID (CEROVITE) GT SCH (09:51)
[2016-11-28] MEDS: MINERAL OIL/PETROLATUM,WHITE 454 GM JAR TP SCH ×2 (09:51→21:23)
[2016-11-28] MEDS: CLOTRIMAZOLE/BETAMETASONE DIPROPIONATE 15 GM TUBE TP SCH ×2 (09:51→21:23)
[2016-11-28] MEDS: OCUSOFT LID SCRUB TP SCH ×2 (09:51→17:00)
[2016-11-28] MEDS: ASCORBIC ACID 500 MG TABLET GT SCH (09:51)
[2016-11-28] MEDS: CHLORHEXIDINE GLUCONATE 15 ML UDC MM SCH ×2 (09:51→17:00)
[2016-11-28] MEDS: ZINC OXIDE 30 GM TUBE TP SCH ×2 (09:52→21:23)
[2016-11-28 19:24] VITALS: BP 109/65
[2016-11-29] MEDS: SUCRALFATE 1 G/10 ML UDC GT SCH ×6 (00:34→20:40)
[2016-11-29] MEDS: FIBERSOURCE HN 1,000 ML BOTTLE GT PRN ×2 (00:36→17:06)
[2016-11-29] MEDS: IPRATROPIUM NEB FS 0.5 MG/2.5 ML AMPUL.NEB IH SCH ×4 (01:05→19:07)
[2016-11-29] MEDS: ALBUTEROL FS 2.5 MG/0.5 ML VIAL.NEB NEB SCH ×4 (01:05→19:07)
[2016-11-29] MEDS: METRONIDAZOLE 500 MG TABLET GT SCH ×3 (05:31→20:40)
[2016-11-29] MEDS: OMEPRAZOLE 20 MG CAPSULE.DR GT SCH (05:31)
[2016-11-29] MEDS: POLYVINYL ALCOHOL 15 ML BOTTLE EACHEYE SCH ×3 (05:31→20:40)
[2016-11-29 07:31] VITALS: BP 112/72
[2016-11-29] MEDS: HYDROGEN PEROXIDE 480 ML BOTTLE TP SCH ×2 (09:59→20:40)
[2016-11-29] MEDS: CHLORHEXIDINE GLUCONATE 15 ML UDC MM SCH ×2 (09:59→17:06)
[2016-11-29] MEDS: CLOTRIMAZOLE/BETAMETASONE DIPROPIONATE 15 GM TUBE TP SCH ×2 (09:59→20:40)
[2016-11-29] MEDS: ASCORBIC ACID 500 MG TABLET GT SCH (09:59)
[2016-11-29] MEDS: SERTRALINE HCL 25 MG TABLET GT SCH (09:59)
[2016-11-29] MEDS: OCUSOFT LID SCRUB TP SCH ×2 (09:59→17:06)
[2016-11-29] MEDS: MVI/MINERALS LIQUID (CEROVITE) GT SCH (09:59)
[2016-11-29] MEDS: MINERAL OIL/PETROLATUM,WHITE 454 GM JAR TP SCH ×2 (09:59→20:40)
[2016-11-29] MEDS: Z GUARD REMEDY 4 OZ OINT TP SCH ×4 (09:59→20:41)
[2016-11-29] MEDS: ZINC OXIDE 30 GM TUBE TP SCH ×2 (09:59→20:41)
[2016-11-29] MEDS: PROSOURCE / PROSTAT (PYXIS) 30 ML UDC GT SCH (09:59)
[2016-11-29 19:55] VITALS: BP 109/59
[2016-11-30] MEDS: TEMAZEPAM 7.5 MG CAPSULE GT PRN (00:19)
[2016-11-30] MEDS: ALBUTEROL FS 2.5 MG/0.5 ML VIAL.NEB NEB SCH ×4 (01:20→19:31)
[2016-11-30] MEDS: IPRATROPIUM NEB FS 0.5 MG/2.5 ML AMPUL.NEB IH SCH ×4 (01:20→19:31)
[2016-11-30] MEDS: SUCRALFATE 1 G/10 ML UDC GT SCH ×6 (01:45→20:40)
[2016-11-30] MEDS: POLYVINYL ALCOHOL 15 ML BOTTLE EACHEYE SCH ×3 (05:30→20:40)
[2016-11-30] MEDS: METRONIDAZOLE 500 MG TABLET GT SCH ×3 (05:31→20:40)
[2016-11-30] MEDS: OMEPRAZOLE 20 MG CAPSULE.DR GT SCH (05:31)
--- NOTE | 2016-11-30 07:30 | NUR ---
Male pt received on mechanical vent. Pt trach is secure. Vent is plugged into a red outlet, alarms are set and audible, and BMV is at bedside. Addendum: 11/30/16 at 0730 by KAYLIN GRANADOS RT Amended: Links added.
[2016-11-30 07:44] VITALS: BP 106/65
[2016-11-30] MEDS: CHLORHEXIDINE GLUCONATE 15 ML UDC MM SCH ×2 (09:00→16:53)
[2016-11-30] MEDS: OCUSOFT LID SCRUB TP SCH ×2 (09:00→16:53)
[2016-11-30] MEDS: PROSOURCE / PROSTAT (PYXIS) 30 ML UDC GT SCH (09:08)
[2016-11-30] MEDS: MVI/MINERALS LIQUID (CEROVITE) GT SCH (09:08)
[2016-11-30] MEDS: SERTRALINE HCL 25 MG TABLET GT SCH (09:08)
[2016-11-30] MEDS: ASCORBIC ACID 500 MG TABLET GT SCH (09:08)
[2016-11-30] MEDS: HYDROGEN PEROXIDE 480 ML BOTTLE TP SCH ×2 (09:09→20:40)
[2016-11-30] MEDS: Z GUARD REMEDY 4 OZ OINT TP SCH ×4 (09:09→20:43)
[2016-11-30] MEDS: CLOTRIMAZOLE/BETAMETASONE DIPROPIONATE 15 GM TUBE TP SCH ×2 (09:09→20:40)
[2016-11-30] MEDS: ZINC OXIDE 30 GM TUBE TP SCH ×2 (09:09→20:43)
[2016-11-30] MEDS: MINERAL OIL/PETROLATUM,WHITE 454 GM JAR TP SCH ×2 (09:09→20:40)
[2016-11-30 19:50] VITALS: BP 115/61
[2016-12-01] MEDS: FIBERSOURCE HN 1,000 ML BOTTLE GT PRN (00:16)
[2016-12-01] MEDS: SUCRALFATE 1 G/10 ML UDC GT SCH ×6 (00:16→20:33)
[2016-12-01] MEDS: ALBUTEROL FS 2.5 MG/0.5 ML VIAL.NEB NEB SCH ×4 (01:13→19:55)
[2016-12-01] MEDS: IPRATROPIUM NEB FS 0.5 MG/2.5 ML AMPUL.NEB IH SCH ×4 (01:13→19:55)
[2016-12-01] MEDS: POLYVINYL ALCOHOL 15 ML BOTTLE EACHEYE SCH ×3 (05:35→20:33)
[2016-12-01] MEDS: METRONIDAZOLE 500 MG TABLET GT SCH ×3 (05:35→20:34)
[2016-12-01] MEDS: OMEPRAZOLE 20 MG CAPSULE.DR GT SCH (05:35)
[2016-12-01 07:35] VITALS: BP 136/87
[2016-12-01] MEDS: MINERAL OIL/PETROLATUM,WHITE 454 GM JAR TP SCH ×2 (09:00→20:34)
[2016-12-01] MEDS: CLOTRIMAZOLE/BETAMETASONE DIPROPIONATE 15 GM TUBE TP SCH ×2 (09:00→20:34)
[2016-12-01] MEDS: ZINC OXIDE 30 GM TUBE TP SCH ×2 (09:00→20:34)
[2016-12-01] MEDS: Z GUARD REMEDY 4 OZ OINT TP SCH ×4 (09:00→20:34)
[2016-12-01] MEDS: HYDROGEN PEROXIDE 480 ML BOTTLE TP SCH ×2 (09:00→20:34)
[2016-12-01] MEDS: SERTRALINE HCL 25 MG TABLET GT SCH (09:59)
[2016-12-01] MEDS: MVI/MINERALS LIQUID (CEROVITE) GT SCH (09:59)
[2016-12-01] MEDS: ASCORBIC ACID 500 MG TABLET GT SCH (09:59)
[2016-12-01] MEDS: PROSOURCE / PROSTAT (PYXIS) 30 ML UDC GT SCH (09:59)
[2016-12-01] MEDS: CHLORHEXIDINE GLUCONATE 15 ML UDC MM SCH ×2 (09:59→17:00)
[2016-12-01] MEDS: OCUSOFT LID SCRUB TP SCH ×2 (10:00→17:00)
--- NOTE | 2016-12-01 15:44 | NUR ---
Resident will be seen by the disability examiner after 2:30pm on 12/02/2016.
[2016-12-01 19:55] VITALS: BP 119/75
--- NOTE | 2016-12-01 23:00 | NUR ---
RN NOTES Noted with right hand reddened and with swelling. When hand is gently lifted or moved, pt c/o pain. Notified Isidra Ayala NP with order for xray, noted and carried out.
[2016-12-02] MEDS: SUCRALFATE 1 G/10 ML UDC GT SCH ×6 (00:18→20:41)
[2016-12-02] MEDS: IPRATROPIUM NEB FS 0.5 MG/2.5 ML AMPUL.NEB IH SCH ×4 (01:43→19:29)
[2016-12-02] MEDS: ALBUTEROL FS 2.5 MG/0.5 ML VIAL.NEB NEB SCH ×4 (01:43→19:29)
[2016-12-02] MEDS: POLYVINYL ALCOHOL 15 ML BOTTLE EACHEYE SCH ×3 (05:00→20:41)
[2016-12-02] MEDS: OMEPRAZOLE 20 MG CAPSULE.DR GT SCH (05:28)
[2016-12-02] MEDS: METRONIDAZOLE 500 MG TABLET GT SCH ×3 (05:28→20:42)
[2016-12-02] MEDS: FIBERSOURCE HN 1,000 ML BOTTLE GT PRN (05:31)
[2016-12-02 07:59] VITALS: BP 122/77
[2016-12-02] MEDS: Z GUARD REMEDY 4 OZ OINT TP SCH ×4 (09:00→20:42)
[2016-12-02] MEDS: ZINC OXIDE 30 GM TUBE TP SCH ×2 (09:00→20:42)
[2016-12-02] MEDS: CLOTRIMAZOLE/BETAMETASONE DIPROPIONATE 15 GM TUBE TP SCH ×2 (09:00→20:42)
[2016-12-02] MEDS: HYDROGEN PEROXIDE 480 ML BOTTLE TP SCH ×2 (09:00→20:42)
--- NOTE | 2016-12-02 09:36 | NUR ---
Received a call from Arnulfo from the office of Dr. Mills ([phone]) who stated that Dr. Mills informed her that he was not going to be able to come and see our hospital patient's anymore. She stated he is getting ready to retire and thinks that its best to find another electronic equipment set up operator for the patient's. GONZALO faxed referral to [facility] (tel: [phone] fax: [phone]) for electronic equipment set up operator to be assigned. Omar to follow up with GONZALO about which electronic equipment set up operator will be assigned to the patient.
[2016-12-02] MEDS: SERTRALINE HCL 25 MG TABLET GT SCH (09:42)
[2016-12-02] MEDS: CHLORHEXIDINE GLUCONATE 15 ML UDC MM SCH ×2 (09:42→17:14)
[2016-12-02] MEDS: PROSOURCE / PROSTAT (PYXIS) 30 ML UDC GT SCH (09:42)
[2016-12-02] MEDS: ASCORBIC ACID 500 MG TABLET GT SCH (09:42)
[2016-12-02] MEDS: MVI/MINERALS LIQUID (CEROVITE) GT SCH (09:42)
[2016-12-02] MEDS: OCUSOFT LID SCRUB TP SCH ×2 (09:43→17:14)
[2016-12-02] MEDS: MINERAL OIL/PETROLATUM,WHITE 454 GM JAR TP SCH ×2 (09:43→20:42)
--- NOTE | 2016-12-02 12:02 | NUR ---
Relayed right hand x-ray to Dr. Reese. No new order.
--- NOTE | 2016-12-02 12:30 | NUR ---
Seen by Dr. Caceres. He trimmed pt's toenails. Pt tolerated procedure well.
[2016-12-02] MEDS: CLOTRIMAZOLE 1% 15 GM TUBE TP SCH (17:14)
[2016-12-02 19:50] VITALS: BP 100/62
[2016-12-03] MEDS: FIBERSOURCE HN 1,000 ML BOTTLE GT PRN ×2 (00:26→16:41)
[2016-12-03] MEDS: SUCRALFATE 1 G/10 ML UDC GT SCH ×5 (00:46→20:24)
[2016-12-03] MEDS: IPRATROPIUM NEB FS 0.5 MG/2.5 ML AMPUL.NEB IH SCH ×4 (01:18→19:53)
[2016-12-03] MEDS: ALBUTEROL FS 2.5 MG/0.5 ML VIAL.NEB NEB SCH ×4 (01:18→19:53)
[2016-12-03] MEDS: OCUSOFT LID SCRUB TP SCH ×2 (09:00→16:37)
[2016-12-03] MEDS: CHLORHEXIDINE GLUCONATE 15 ML UDC MM SCH ×2 (09:00→16:37)
[2016-12-03] MEDS: ASCORBIC ACID 500 MG TABLET GT SCH (09:00)
[2016-12-03] MEDS: PROSOURCE / PROSTAT (PYXIS) 30 ML UDC GT SCH (09:53)
[2016-12-03] MEDS: SERTRALINE HCL 25 MG TABLET GT SCH (09:53)
[2016-12-03] MEDS: MVI/MINERALS LIQUID (CEROVITE) GT SCH (09:53)
[2016-12-03] MEDS: MINERAL OIL/PETROLATUM,WHITE 454 GM JAR TP SCH ×2 (09:53→20:24)
[2016-12-03] MEDS: Z GUARD REMEDY 4 OZ OINT TP SCH ×4 (09:54→20:25)
[2016-12-03] MEDS: HYDROGEN PEROXIDE 480 ML BOTTLE TP SCH ×2 (09:54→20:24)
[2016-12-03] MEDS: CLOTRIMAZOLE/BETAMETASONE DIPROPIONATE 15 GM TUBE TP SCH ×2 (09:54→20:24)
[2016-12-03] MEDS: ZINC OXIDE 30 GM TUBE TP SCH ×2 (09:54→20:25)
[2016-12-03] MEDS: CLOTRIMAZOLE 1% 15 GM TUBE TP SCH ×2 (09:54→16:37)
[2016-12-03] MEDS: POLYVINYL ALCOHOL 15 ML BOTTLE EACHEYE SCH ×2 (12:22→20:24)
[2016-12-03 12:34] VITALS: BP 111/69
[2016-12-03] MEDS: METRONIDAZOLE 500 MG TABLET GT SCH ×2 (13:00→20:24)
--- NOTE | 2016-12-03 15:30 | NUR ---
Left a voicemail to the resident's dtr Olivia Olivo ([phone]) stating that resident received a bill payment for his health insurance premium. SW also stated that resident also has medicare notices that resident received in the mail. SW assisted the resident in opening his mail. Resident received a notice which states that dtr Olivia Olivo has been appointed resident's payee for his social security benefits. SW left call back details and will follow up.
[2016-12-03 20:33] VITALS: BP 124/83
[2016-12-04] MEDS: SUCRALFATE 1 G/10 ML UDC GT SCH ×6 (00:27→21:28)
[2016-12-04] MEDS: ALBUTEROL FS 2.5 MG/0.5 ML VIAL.NEB NEB SCH ×4 (01:35→20:12)
[2016-12-04] MEDS: IPRATROPIUM NEB FS 0.5 MG/2.5 ML AMPUL.NEB IH SCH ×4 (01:35→20:12)
[2016-12-04] MEDS: FIBERSOURCE HN 1,000 ML BOTTLE GT PRN ×2 (04:20→22:02)
[2016-12-04] MEDS: METRONIDAZOLE 500 MG TABLET GT SCH ×2 (05:21→12:06)
[2016-12-04] MEDS: POLYVINYL ALCOHOL 15 ML BOTTLE EACHEYE SCH ×3 (05:21→21:28)
[2016-12-04] MEDS: OMEPRAZOLE 20 MG CAPSULE.DR GT SCH (05:21)
[2016-12-04 07:51] VITALS: BP 115/69
[2016-12-04] MEDS: MVI/MINERALS LIQUID (CEROVITE) GT SCH (08:29)
[2016-12-04] MEDS: ASCORBIC ACID 500 MG TABLET GT SCH (08:30)
[2016-12-04] MEDS: PROSOURCE / PROSTAT (PYXIS) 30 ML UDC GT SCH (08:30)
[2016-12-04] MEDS: SERTRALINE HCL 25 MG TABLET GT SCH (08:31)
[2016-12-04] MEDS: CHLORHEXIDINE GLUCONATE 15 ML UDC MM SCH ×2 (08:31→17:32)
[2016-12-04] MEDS: MINERAL OIL/PETROLATUM,WHITE 454 GM JAR TP SCH ×2 (08:31→21:28)
[2016-12-04] MEDS: CLOTRIMAZOLE 1% 15 GM TUBE TP SCH ×2 (08:32→17:32)
[2016-12-04] MEDS: HYDROGEN PEROXIDE 480 ML BOTTLE TP SCH ×2 (08:32→21:29)
[2016-12-04] MEDS: OCUSOFT LID SCRUB TP SCH ×2 (08:32→17:32)
[2016-12-04] MEDS: ZINC OXIDE 30 GM TUBE TP SCH ×2 (08:33→21:29)
[2016-12-04] MEDS: Z GUARD REMEDY 4 OZ OINT TP SCH ×4 (08:33→21:29)
[2016-12-04] MEDS: CLOTRIMAZOLE/BETAMETASONE DIPROPIONATE 15 GM TUBE TP SCH ×2 (08:33→21:29)
--- NOTE | 2016-12-04 18:52 | NUR ---
Pt with no episode of BM today. Last dose of Flagyl given today at 1300.
[2016-12-04 20:01] VITALS: BP 122/68
[2016-12-05] MEDS: SUCRALFATE 1 G/10 ML UDC GT SCH ×6 (00:01→20:33)
[2016-12-05] MEDS: IPRATROPIUM NEB FS 0.5 MG/2.5 ML AMPUL.NEB IH SCH ×4 (00:38→19:13)
[2016-12-05] MEDS: ALBUTEROL FS 2.5 MG/0.5 ML VIAL.NEB NEB SCH ×4 (00:39→19:13)
[2016-12-05] MEDS: POLYVINYL ALCOHOL 15 ML BOTTLE EACHEYE SCH ×3 (05:19→20:32)
[2016-12-05] MEDS: OMEPRAZOLE 20 MG CAPSULE.DR GT SCH (05:19)
[2016-12-05] MEDS: SIMETHICONE SUSP 40 MG/0.6 ML BOTTLE GT PRN (05:20)
--- NOTE | 2016-12-05 06:00 | NUR ---
Pt noted with 1x soft bowel movement.
--- NOTE | 2016-12-05 06:59 | NUR ---
Pt remains afebrile, still on contact isolation for c-diff , no episode of diarrhea noted, no bm noted during shift.
[2016-12-05 07:47] VITALS: BP 115/75
[2016-12-05] MEDS: ZINC OXIDE 30 GM TUBE TP SCH ×2 (09:00→20:34)
[2016-12-05] MEDS: ASCORBIC ACID 500 MG TABLET GT SCH (09:00)
[2016-12-05] MEDS: CLOTRIMAZOLE 1% 15 GM TUBE TP SCH ×2 (09:00→17:51)
[2016-12-05] MEDS: Z GUARD REMEDY 4 OZ OINT TP SCH ×4 (09:00→20:34)
[2016-12-05] MEDS: MVI/MINERALS LIQUID (CEROVITE) GT SCH (09:00)
[2016-12-05] MEDS: SERTRALINE HCL 25 MG TABLET GT SCH (09:00)
[2016-12-05] MEDS: CHLORHEXIDINE GLUCONATE 15 ML UDC MM SCH ×2 (09:00→17:00)
[2016-12-05] MEDS: PROSOURCE / PROSTAT (PYXIS) 30 ML UDC GT SCH (09:00)
[2016-12-05] MEDS: MINERAL OIL/PETROLATUM,WHITE 454 GM JAR TP SCH ×2 (09:00→20:33)
[2016-12-05] MEDS: CLOTRIMAZOLE/BETAMETASONE DIPROPIONATE 15 GM TUBE TP SCH ×2 (09:00→20:33)
[2016-12-05] MEDS: OCUSOFT LID SCRUB TP SCH ×2 (09:00→17:00)
[2016-12-05] MEDS: HYDROGEN PEROXIDE 480 ML BOTTLE TP SCH ×2 (09:00→20:33)
--- NOTE | 2016-12-05 10:44 | NUR ---
GONZALO spoke to Kirstie who stated that it is better if resident's family members try to disenroll him from [employer] [facility]. GONZALO called resident's dtr Olivia Olivo who stated that she can call to find out what needs to be done to do this. GONZALO provided her the number to [facility] ( ) and she stated she will follow up. She also informed the psych social worker that the majority of the resident's SSI money will be going to the hospital to pay his bill but per Olivia, she was not aware that he has a share of cost. She stated that she is confused about what the lady from the SSI office was telling her over the phone as she spoke very softly and could not understand. She stated she needs to call again to clarify. GONZALO informed her that he received a bill for his healthcare premium that is overdue and needs to be paid. SHe stated she will be coming Friday December 09, 2016 and is aware that he is still on isolation. Kirstie informed about payment to the hospital.
[2016-12-05] MEDS: FIBERSOURCE HN 1,000 ML BOTTLE GT PRN (15:23)
--- NOTE | 2016-12-05 19:25 | NUR ---
Pt had 2 formed stools during this shift.
[2016-12-05 20:18] VITALS: BP 123/72
[2016-12-05 21:00] VITALS: BP 123/72
[2016-12-06] MEDS: ALBUTEROL FS 2.5 MG/0.5 ML VIAL.NEB NEB SCH ×4 (01:11→19:26)
[2016-12-06] MEDS: IPRATROPIUM NEB FS 0.5 MG/2.5 ML AMPUL.NEB IH SCH ×4 (01:11→19:26)
[2016-12-06] MEDS: SUCRALFATE 1 G/10 ML UDC GT SCH ×6 (01:50→20:12)
[2016-12-06] MEDS: OMEPRAZOLE 20 MG CAPSULE.DR GT SCH (05:22)
[2016-12-06] MEDS: POLYVINYL ALCOHOL 15 ML BOTTLE EACHEYE SCH ×3 (05:22→20:12)
[2016-12-06] MEDS: FIBERSOURCE HN 1,000 ML BOTTLE GT PRN ×2 (06:08→21:29)
[2016-12-06 07:55] VITALS: BP 113/72
[2016-12-06] MEDS: OCUSOFT LID SCRUB TP SCH ×2 (09:00→16:56)
[2016-12-06] MEDS: PROSOURCE / PROSTAT (PYXIS) 30 ML UDC GT SCH (09:17)
[2016-12-06] MEDS: ASCORBIC ACID 500 MG TABLET GT SCH (09:17)
[2016-12-06] MEDS: MVI/MINERALS LIQUID (CEROVITE) GT SCH (09:17)
[2016-12-06] MEDS: SERTRALINE HCL 25 MG TABLET GT SCH (09:17)
[2016-12-06] MEDS: MINERAL OIL/PETROLATUM,WHITE 454 GM JAR TP SCH ×2 (09:18→20:12)
[2016-12-06] MEDS: CHLORHEXIDINE GLUCONATE 15 ML UDC MM SCH ×2 (09:18→16:56)
[2016-12-06] MEDS: HYDROGEN PEROXIDE 480 ML BOTTLE TP SCH ×2 (09:19→20:12)
[2016-12-06] MEDS: ZINC OXIDE 30 GM TUBE TP SCH ×2 (09:19→20:12)
[2016-12-06] MEDS: CLOTRIMAZOLE/BETAMETASONE DIPROPIONATE 15 GM TUBE TP SCH ×2 (09:19→20:12)
[2016-12-06] MEDS: Z GUARD REMEDY 4 OZ OINT TP SCH ×4 (09:19→20:12)
[2016-12-06] MEDS: CLOTRIMAZOLE 1% 15 GM TUBE TP SCH ×2 (09:19→16:56)
--- NOTE | 2016-12-06 18:36 | NUR ---
PATIENT HAD BOWEL MOVEMENT TODAY X2, LARGE AMOUNT AND FORMED, BROWN COLOR. SKIN CARE PROVIDED.
[2016-12-06 20:06] VITALS: BP 119/76
[2016-12-06] MEDS: TEMAZEPAM 7.5 MG CAPSULE GT PRN (20:12)
[2016-12-06] MEDS: SIMETHICONE SUSP 40 MG/0.6 ML BOTTLE GT PRN (20:12)
[2016-12-07] MEDS: SUCRALFATE 1 G/10 ML UDC GT SCH ×6 (00:25→21:22)
[2016-12-07] MEDS: IPRATROPIUM NEB FS 0.5 MG/2.5 ML AMPUL.NEB IH SCH ×4 (01:55→20:04)
[2016-12-07] MEDS: ALBUTEROL FS 2.5 MG/0.5 ML VIAL.NEB NEB SCH ×4 (01:55→20:04)
[2016-12-07] MEDS: OMEPRAZOLE 20 MG CAPSULE.DR GT SCH (05:10)
[2016-12-07] MEDS: POLYVINYL ALCOHOL 15 ML BOTTLE EACHEYE SCH ×3 (05:10→21:22)
[2016-12-07 07:41] VITALS: BP 121/75
[2016-12-07] MEDS: ASCORBIC ACID 500 MG TABLET GT SCH (09:00)
[2016-12-07] MEDS: CLOTRIMAZOLE 1% 15 GM TUBE TP SCH ×2 (09:00→17:00)
[2016-12-07] MEDS: MINERAL OIL/PETROLATUM,WHITE 454 GM JAR TP SCH ×2 (09:00→21:22)
[2016-12-07] MEDS: MVI/MINERALS LIQUID (CEROVITE) GT SCH (09:00)
[2016-12-07] MEDS: Z GUARD REMEDY 4 OZ OINT TP SCH ×4 (09:00→21:23)
[2016-12-07] MEDS: CHLORHEXIDINE GLUCONATE 15 ML UDC MM SCH ×2 (09:00→17:00)
[2016-12-07] MEDS: CLOTRIMAZOLE/BETAMETASONE DIPROPIONATE 15 GM TUBE TP SCH ×2 (09:00→21:23)
[2016-12-07] MEDS: PROSOURCE / PROSTAT (PYXIS) 30 ML UDC GT SCH (09:00)
[2016-12-07] MEDS: HYDROGEN PEROXIDE 480 ML BOTTLE TP SCH ×2 (09:00→21:22)
[2016-12-07] MEDS: ZINC OXIDE 30 GM TUBE TP SCH ×2 (09:00→21:23)
[2016-12-07] MEDS: SERTRALINE HCL 25 MG TABLET GT SCH (09:00)
[2016-12-07] MEDS: OCUSOFT LID SCRUB TP SCH ×2 (09:00→17:00)
[2016-12-07] MEDS: FIBERSOURCE HN 1,000 ML BOTTLE GT PRN (15:48)
--- NOTE | 2016-12-07 18:53 | NUR ---
monitored pt. for bowel movement, no diarrhea noted. Have 2X BM to a large soft stool. CN made aware.
[2016-12-07 20:13] VITALS: BP 112/82
[2016-12-08] MEDS: SUCRALFATE 1 G/10 ML UDC GT SCH ×6 (01:07→21:13)
[2016-12-08] MEDS: IPRATROPIUM NEB FS 0.5 MG/2.5 ML AMPUL.NEB IH SCH ×4 (01:53→20:05)
[2016-12-08] MEDS: ALBUTEROL FS 2.5 MG/0.5 ML VIAL.NEB NEB SCH ×4 (01:53→20:05)
[2016-12-08] MEDS: FIBERSOURCE HN 1,000 ML BOTTLE GT PRN ×2 (04:38→21:14)
[2016-12-08] MEDS: POLYVINYL ALCOHOL 15 ML BOTTLE EACHEYE SCH ×3 (05:49→21:13)
[2016-12-08] MEDS: OMEPRAZOLE 20 MG CAPSULE.DR GT SCH (05:49)
--- NOTE | 2016-12-08 07:18 | NUR ---
Male pt received on mechanical vent. Pt trach is secure. Vent is plugged into a red outlet, alarms are set and audible, and BVM is at bedside. Addendum: 12/08/16 at 1028 by KAYLIN GRANADOS RT Amended: Links added.
[2016-12-08 07:41] VITALS: BP 120/83
[2016-12-08] MEDS: MINERAL OIL/PETROLATUM,WHITE 454 GM JAR TP SCH ×2 (09:00→21:13)
[2016-12-08] MEDS: OCUSOFT LID SCRUB TP SCH ×2 (09:00→17:00)
[2016-12-08] MEDS: Z GUARD REMEDY 4 OZ OINT TP SCH ×4 (09:00→21:13)
--- NOTE | 2016-12-08 09:45 | NUR ---
No episode of diarrhea since 12/04/16. Received order to DC contact isolation for C diff.
[2016-12-08] MEDS: ASCORBIC ACID 500 MG TABLET GT SCH (09:58)
[2016-12-08] MEDS: CHLORHEXIDINE GLUCONATE 15 ML UDC MM SCH ×2 (09:58→17:00)
[2016-12-08] MEDS: PROSOURCE / PROSTAT (PYXIS) 30 ML UDC GT SCH (09:58)
[2016-12-08] MEDS: SERTRALINE HCL 25 MG TABLET GT SCH (09:58)
[2016-12-08] MEDS: MVI/MINERALS LIQUID (CEROVITE) GT SCH (09:58)
[2016-12-08] MEDS: CLOTRIMAZOLE 1% 15 GM TUBE TP SCH ×2 (10:00→17:00)
[2016-12-08] MEDS: CLOTRIMAZOLE/BETAMETASONE DIPROPIONATE 15 GM TUBE TP SCH ×2 (10:00→21:13)
--- NOTE | 2016-12-08 10:21 | NUR ---
Notified Dr. Vance of pt's weight gain of 4.6 lbs. Weight gain desirable for pt.
[2016-12-08] MEDS: ZINC OXIDE 30 GM TUBE TP SCH ×2 (12:00→21:13)
[2016-12-08] MEDS: HYDROGEN PEROXIDE 480 ML BOTTLE TP SCH ×2 (12:00→21:13)
[2016-12-08 19:58] VITALS: BP 120/71
[2016-12-09] MEDS: SUCRALFATE 1 G/10 ML UDC GT SCH ×6 (00:52→21:20)
[2016-12-09] MEDS: IPRATROPIUM NEB FS 0.5 MG/2.5 ML AMPUL.NEB IH SCH ×4 (01:34→19:15)
[2016-12-09] MEDS: ALBUTEROL FS 2.5 MG/0.5 ML VIAL.NEB NEB SCH ×4 (01:34→19:15)
[2016-12-09] MEDS: POLYVINYL ALCOHOL 15 ML BOTTLE EACHEYE SCH ×3 (05:05→21:20)
[2016-12-09] MEDS: OMEPRAZOLE 20 MG CAPSULE.DR GT SCH (05:06)
--- NOTE | 2016-12-09 07:19 | NUR ---
Pt received on mechanical vent. Suctioned moderate amount of thick secretions. Pt trach is secure. Vent is plugged into a red outlet, alarms are set and audible, and BVM is at bedside. Addendum: 12/09/16 at 0720 by KAYLIN GRANADOS RT Amended: Links added.
[2016-12-09 08:05] VITALS: BP 120/74
[2016-12-09] MEDS: OCUSOFT LID SCRUB TP SCH ×2 (09:00→17:00)
[2016-12-09] MEDS: CHLORHEXIDINE GLUCONATE 15 ML UDC MM SCH ×2 (09:12→17:00)
[2016-12-09] MEDS: ASCORBIC ACID 500 MG TABLET GT SCH (09:12)
[2016-12-09] MEDS: PROSOURCE / PROSTAT (PYXIS) 30 ML UDC GT SCH (09:12)
[2016-12-09] MEDS: SERTRALINE HCL 25 MG TABLET GT SCH (09:12)
[2016-12-09] MEDS: MVI/MINERALS LIQUID (CEROVITE) GT SCH (09:12)
[2016-12-09] MEDS: Z GUARD REMEDY 4 OZ OINT TP SCH ×4 (10:45→21:20)
[2016-12-09] MEDS: CLOTRIMAZOLE 1% 15 GM TUBE TP SCH ×2 (10:45→17:00)
[2016-12-09] MEDS: CLOTRIMAZOLE/BETAMETASONE DIPROPIONATE 15 GM TUBE TP SCH ×2 (10:45→21:20)
[2016-12-09] MEDS: MINERAL OIL/PETROLATUM,WHITE 454 GM JAR TP SCH ×2 (10:45→21:20)
[2016-12-09] MEDS: ZINC OXIDE 30 GM TUBE TP SCH (10:45)
[2016-12-09] MEDS: HYDROGEN PEROXIDE 480 ML BOTTLE TP SCH ×2 (10:45→21:20)
[2016-12-09 21:19] VITALS: BP 118/65
[2016-12-09] MEDS: FIBERSOURCE HN 1,000 ML BOTTLE GT PRN (21:56)
[2016-12-10] MEDS: SUCRALFATE 1 G/10 ML UDC GT SCH ×6 (00:14→20:40)
[2016-12-10] MEDS: IPRATROPIUM NEB FS 0.5 MG/2.5 ML AMPUL.NEB IH SCH ×4 (00:39→19:50)
[2016-12-10] MEDS: ALBUTEROL FS 2.5 MG/0.5 ML VIAL.NEB NEB SCH ×4 (00:39→19:50)
[2016-12-10] MEDS: POLYVINYL ALCOHOL 15 ML BOTTLE EACHEYE SCH ×3 (05:19→20:40)
[2016-12-10] MEDS: OMEPRAZOLE 20 MG CAPSULE.DR GT SCH (05:20)
[2016-12-10 07:58] VITALS: BP 100/56
[2016-12-10] MEDS: ASCORBIC ACID 500 MG TABLET GT SCH (09:44)
[2016-12-10] MEDS: OCUSOFT LID SCRUB TP SCH ×2 (09:44→17:34)
[2016-12-10] MEDS: CHLORHEXIDINE GLUCONATE 15 ML UDC MM SCH ×2 (09:44→17:00)
[2016-12-10] MEDS: PROSOURCE / PROSTAT (PYXIS) 30 ML UDC GT SCH (09:44)
[2016-12-10] MEDS: MINERAL OIL/PETROLATUM,WHITE 454 GM JAR TP SCH ×2 (09:44→20:40)
[2016-12-10] MEDS: SERTRALINE HCL 25 MG TABLET GT SCH (09:44)
[2016-12-10] MEDS: MVI/MINERALS LIQUID (CEROVITE) GT SCH (09:44)
[2016-12-10] MEDS: CLOTRIMAZOLE/BETAMETASONE DIPROPIONATE 15 GM TUBE TP SCH ×2 (09:45→20:40)
[2016-12-10] MEDS: CLOTRIMAZOLE 1% 15 GM TUBE TP SCH ×2 (09:45→17:34)
[2016-12-10] MEDS: HYDROGEN PEROXIDE 480 ML BOTTLE TP SCH ×2 (09:45→20:40)
[2016-12-10] MEDS: Z GUARD REMEDY 4 OZ OINT TP SCH ×4 (09:45→20:40)
--- NOTE | 2016-12-10 16:12 | NUR ---
Patient was tracheal suctioned to obtain large amount of thick yellow secretions. While cleaning up, emesis was noted. Head of the bed was raised to a 90 degree angle and mouth was cleaned. Nurse Altman busy with another patient at this time,but nurse Plummer was notified.
--- NOTE | 2016-12-10 17:51 | NUR ---
Notified Dr. Vance that resident vomited x1 with small amount of dark brown in color approx 50ml, gastric residual 30 ml formula in color, no signs and symptoms of aspiration, tracheal secretions whitish-yellow in color., VS 113/87, HR 120, 100.3, RR 24, 96% on ventilator with vent setting of AC 10, TV 400 Peep 5 Fi02 40%. Patient still with episode of loose BM x 3 this shift.observed contact isolation as precautionary for C. diff infection. Awaiting for return call from MD for orders. Spoke with patient's sister Elizabeth and made aware of patient's change in condition. Continue to observe.
--- NOTE | 2016-12-10 18:00 | NUR ---
Received a call from Barbara, patient's sister requesting a Electrical Systems Drafter to see the patient. Informed Barbara that it will be relayed to [facility] in AM. Endorsed.
[2016-12-10 19:54] VITALS: BP 101/69
--- NOTE | 2016-12-10 20:25 | NUR ---
Obtain an order from Dr. Vance to put patient on IVF of D5NS at 80 cc/he. Endorsed.
[2016-12-10] MEDS: FAMOTIDINE/PF INJ 20 MG/2 ML VIAL IV SCH ×2 (20:40→20:56)
[2016-12-10] MEDS: IV D5/ 0.9% NACL 1,000 ML IV PRN (20:52)
--- NOTE | 2016-12-10 21:00 | NUR ---
RADHAMES Espinal seen patient with new orders collect stool for C diff,contact isolation for precautionary for C diff.Vancomycin 250mg via gt q 6hrs for C diff x 14 days.Started IV fluids D5 1/2 NS 80cc/hr for hydration,with left hand PIV inserted.Pepcid 20mg IV push given slowly for GERD.Will continue to monitor.
[2016-12-11] MEDS ORDERED: VANCOMYCIN HCL 125 MG/2.5 ML ORAL.SUSP PO SCH
[2016-12-11] MEDS: SUCRALFATE 1 G/10 ML UDC GT SCH ×6 (01:31→20:27)
[2016-12-11] MEDS: IPRATROPIUM NEB FS 0.5 MG/2.5 ML AMPUL.NEB IH SCH ×4 (02:18→19:52)
[2016-12-11] MEDS: ALBUTEROL FS 2.5 MG/0.5 ML VIAL.NEB NEB SCH ×4 (02:18→19:52)
[2016-12-11] MEDS: OMEPRAZOLE 20 MG CAPSULE.DR GT SCH (05:04)
[2016-12-11] MEDS: POLYVINYL ALCOHOL 15 ML BOTTLE EACHEYE SCH ×3 (05:04→20:27)
--- NOTE | 2016-12-11 06:24 | NUR ---
Pt remains stable,no distress noted.No vomiting noted during the shift.Vancomycin via gt,not given yet still waiting for [facility] to deliver,will follow up and endorsed.
[2016-12-11 07:57] VITALS: BP 102/64
[2016-12-11] MEDS: FAMOTIDINE/PF INJ 20 MG/2 ML VIAL IV SCH ×3 (09:00→21:07)
[2016-12-11] MEDS: SERTRALINE HCL 25 MG TABLET GT SCH (09:08)
[2016-12-11] MEDS: CHLORHEXIDINE GLUCONATE 15 ML UDC MM SCH ×2 (09:08→16:46)
[2016-12-11] MEDS: ASCORBIC ACID 500 MG TABLET GT SCH (09:08)
[2016-12-11] MEDS: PROSOURCE / PROSTAT (PYXIS) 30 ML UDC GT SCH (09:08)
[2016-12-11] MEDS: MVI/MINERALS LIQUID (CEROVITE) GT SCH (09:08)
[2016-12-11] MEDS: CLOTRIMAZOLE 1% 15 GM TUBE TP SCH ×2 (09:09→16:46)
[2016-12-11] MEDS: HYDROGEN PEROXIDE 480 ML BOTTLE TP SCH ×2 (09:09→20:27)
[2016-12-11] MEDS: MINERAL OIL/PETROLATUM,WHITE 454 GM JAR TP SCH ×2 (09:09→20:27)
[2016-12-11] MEDS: Z GUARD REMEDY 4 OZ OINT TP SCH ×4 (09:09→20:27)
[2016-12-11] MEDS: CLOTRIMAZOLE/BETAMETASONE DIPROPIONATE 15 GM TUBE TP SCH ×2 (09:09→20:27)
[2016-12-11] MEDS: OCUSOFT LID SCRUB TP SCH ×2 (09:14→17:37)
[2016-12-11] MEDS: IV D5/ 0.9% NACL 1,000 ML IV PRN ×2 (09:52→22:05)
--- NOTE | 2016-12-11 10:06 | NUR ---
Resident's sister Elizabeth requesting a rotor blade installer to come and see resident. Informed marketing support coordinator and she stated she will let the supervisor forming department know to come and see him the next time he visits. Sister informed.
[2016-12-11] MEDS: VANCOMYCIN HCL 125 MG/2.5 ML ORAL.SUSP GT SCH ×2 (12:20→17:37)
[2016-12-11 19:33] VITALS: BP 109/61
[2016-12-11] MEDS: ACETAMINOPHEN 650 MG/20 ML UDC- FOR SA PATIENTS ONLY GT PRN (19:42)
[2016-12-11] MEDS: ZINC OXIDE 30 GM TUBE TP SCH (20:28)
--- NOTE | 2016-12-11 20:49 | NUR ---
Daughter Olivia called and quite upset that she was not notified regarding her father change in condition.She said that her aunt Elizabeth called her last night that her father is throwing up.She said if my aunt didn't called me I wont know it.I apologized to her and told her that were making sure next time to call her first for any update.She accepted the apology and she might come tomorrow to visit.
[2016-12-12] MEDS: VANCOMYCIN HCL 125 MG/2.5 ML ORAL.SUSP GT SCH ×5 (00:06→23:36)
[2016-12-12] MEDS: SUCRALFATE 1 G/10 ML UDC GT SCH ×6 (00:06→20:19)
[2016-12-12] MEDS: ALBUTEROL FS 2.5 MG/0.5 ML VIAL.NEB NEB SCH ×4 (01:34→20:05)
[2016-12-12] MEDS: IPRATROPIUM NEB FS 0.5 MG/2.5 ML AMPUL.NEB IH SCH ×4 (01:34→20:05)
[2016-12-12] MEDS: OMEPRAZOLE 20 MG CAPSULE.DR GT SCH (05:13)
[2016-12-12] MEDS: POLYVINYL ALCOHOL 15 ML BOTTLE EACHEYE SCH ×3 (05:13→20:19)
--- NOTE | 2016-12-12 06:56 | NUR ---
PT STABLE DURING THE NIGHT,NO EMESIS NOTED NO BOWEL MOVEMENT.WILL CONTINUE TO MONITOR AND WILL ENDORSE.
--- NOTE | 2016-12-12 07:25 | NUR ---
Male awake and alert pt received on mechanical vent. Pt trach is secure. Q6 HHN tx are given. Vent is plugged into a red outlet, alarms are set and audible, and BVM is at bedside. Addendum: 12/12/16 at 0727 by KAYLIN GRANADOS RT Amended: Links added.
[2016-12-12 07:34] VITALS: BP 113/53
--- NOTE | 2016-12-12 09:00 | NUR ---
Notified Dr. Vance, patient no further episode of vomiting. IVF discontinued and GT feeding resumed. Orders noted and carried out.
[2016-12-12] MEDS: FAMOTIDINE/PF INJ 20 MG/2 ML VIAL IV SCH ×2 (09:34→21:09)
[2016-12-12] MEDS: MVI/MINERALS LIQUID (CEROVITE) GT SCH (09:53)
[2016-12-12] MEDS: CHLORHEXIDINE GLUCONATE 15 ML UDC MM SCH ×2 (09:53→16:44)
[2016-12-12] MEDS: MINERAL OIL/PETROLATUM,WHITE 454 GM JAR TP SCH ×2 (09:53→20:19)
[2016-12-12] MEDS: SERTRALINE HCL 25 MG TABLET GT SCH (09:53)
[2016-12-12] MEDS: CLOTRIMAZOLE 1% 15 GM TUBE TP SCH ×2 (09:53→16:45)
[2016-12-12] MEDS: OCUSOFT LID SCRUB TP SCH ×2 (09:53→16:44)
[2016-12-12] MEDS: PROSOURCE / PROSTAT (PYXIS) 30 ML UDC GT SCH (09:53)
[2016-12-12] MEDS: HYDROGEN PEROXIDE 480 ML BOTTLE TP SCH ×2 (09:53→20:19)
[2016-12-12] MEDS: ASCORBIC ACID 500 MG TABLET GT SCH (09:53)
[2016-12-12] MEDS: Z GUARD REMEDY 4 OZ OINT TP SCH ×4 (09:54→20:19)
[2016-12-12] MEDS: ZINC OXIDE 30 GM TUBE TP SCH ×2 (09:54→20:19)
[2016-12-12] MEDS: CLOTRIMAZOLE/BETAMETASONE DIPROPIONATE 15 GM TUBE TP SCH ×2 (09:54→20:19)
--- NOTE | 2016-12-12 11:00 | NUR ---
Notified RADHAMES Espinal ID of positive C. diff. result, no new order given at this time. continue to observe contact isolation for stool for C. diff. Patient receiving Vancocin 125 mg., via GT. no adverse reaction. No episode of vomiting.
[2016-12-12] MEDS ORDERED: FIBERSOURCE HN 1,000 ML BOTTLE GT PRN (11:05)
--- NOTE | 2016-12-12 14:44 | NUR ---
Called Moira from [facility] business office ([phone]) to inquire about resident's account, as resident has been receiving several Medicare Summary Notices. Per notices, resident may be billed for services. Per Moira, she will check to see if anything is owed on the account to determine if resident has any responsibility to pay. She stated she will call the next week. Dtr informed that he has been receiving Medicare summary notices. She stated she will come on Friday December 16, 2016. Also stated she will call [employer] to see if she is able to switch him back into straight medi-landy.
--- NOTE | 2016-12-12 15:00 | NUR ---
Spoke with Amanda, daughter updated her of patient's condition, no further episode of vomiting, GT feeding resumed and IVF discontinued. Amanda said that she will be in on Thursday next week.
[2016-12-12] MEDS ORDERED: NEOMY SULF/BACITRAC ZN/POLY 15 GM TUBE TP PRN (19:30)
[2016-12-12 19:33] VITALS: BP 113/72
[2016-12-12] MEDS: TEMAZEPAM 7.5 MG CAPSULE GT PRN (20:19)
[2016-12-12] MEDS: NEOMY SULF/BACITRAC ZN/POLY 15 GM TUBE TP SCH (20:19)
[2016-12-13] MEDS: SUCRALFATE 1 G/10 ML UDC GT SCH ×6 (00:52→20:34)
[2016-12-13] MEDS: IPRATROPIUM NEB FS 0.5 MG/2.5 ML AMPUL.NEB IH SCH ×4 (01:00→19:11)
[2016-12-13] MEDS: ALBUTEROL FS 2.5 MG/0.5 ML VIAL.NEB NEB SCH ×4 (01:00→19:11)
[2016-12-13] MEDS: VANCOMYCIN HCL 125 MG/2.5 ML ORAL.SUSP GT SCH ×3 (05:23→17:35)
[2016-12-13] MEDS: FIBERSOURCE HN 1,000 ML BOTTLE GT PRN ×2 (05:23→17:35)
[2016-12-13] MEDS: POLYVINYL ALCOHOL 15 ML BOTTLE EACHEYE SCH ×3 (05:23→20:34)
[2016-12-13] MEDS: OMEPRAZOLE 20 MG CAPSULE.DR GT SCH (05:23)
[2016-12-13] MEDS: SIMETHICONE SUSP 40 MG/0.6 ML BOTTLE GT PRN ×2 (05:23→21:17)
[2016-12-13 07:33] VITALS: BP 107/68
[2016-12-13] MEDS: ASCORBIC ACID 500 MG TABLET GT SCH (08:58)
[2016-12-13] MEDS: SERTRALINE HCL 25 MG TABLET GT SCH (08:58)
[2016-12-13] MEDS: FAMOTIDINE/PF INJ 20 MG/2 ML VIAL IV SCH (08:58)
[2016-12-13] MEDS: PROSOURCE / PROSTAT (PYXIS) 30 ML UDC GT SCH (08:58)
[2016-12-13] MEDS: MINERAL OIL/PETROLATUM,WHITE 454 GM JAR TP SCH ×2 (08:58→20:34)
[2016-12-13] MEDS: CHLORHEXIDINE GLUCONATE 15 ML UDC MM SCH ×2 (08:58→17:34)
[2016-12-13] MEDS: MVI/MINERALS LIQUID (CEROVITE) GT SCH (08:58)
[2016-12-13] MEDS: CLOTRIMAZOLE 1% 15 GM TUBE TP SCH ×2 (08:59→17:34)
[2016-12-13] MEDS: OCUSOFT LID SCRUB TP SCH ×2 (08:59→17:34)
[2016-12-13] MEDS: HYDROGEN PEROXIDE 480 ML BOTTLE TP SCH ×2 (08:59→20:34)
[2016-12-13] MEDS: CLOTRIMAZOLE/BETAMETASONE DIPROPIONATE 15 GM TUBE TP SCH ×2 (08:59→20:34)
[2016-12-13] MEDS: ZINC OXIDE 30 GM TUBE TP SCH ×2 (08:59→20:35)
[2016-12-13] MEDS: Z GUARD REMEDY 4 OZ OINT TP SCH ×4 (08:59→20:35)
[2016-12-13] MEDS: ACETAMINOPHEN 650 MG/20 ML UDC- FOR SA PATIENTS ONLY GT PRN ×2 (17:35→21:17)
--- NOTE | 2016-12-13 18:20 | NUR ---
Notified RADHAMES Espinal ID of patient's temperature at this time 100.3, cooling measure done No new order given.
[2016-12-13 19:30] VITALS: BP 107/67
[2016-12-14] MEDS: FAMOTIDINE/PF INJ 20 MG/2 ML VIAL IV SCH ×3 (00:01→21:00)
--- NOTE | 2016-12-14 00:20 | NUR ---
Pt refused Famotidine IV medication. Charge nurse offered 3x but refused. Explained the reason for medication and effect if he refuse it but he stated no by shaking his head and screaming "no". patient tried to hit the charge nurse when trying to give the medication.
[2016-12-14] MEDS: SUCRALFATE 1 G/10 ML UDC GT SCH ×6 (00:48→20:54)
[2016-12-14] MEDS: VANCOMYCIN HCL 125 MG/2.5 ML ORAL.SUSP GT SCH ×5 (00:48→23:44)
[2016-12-14] MEDS: IPRATROPIUM NEB FS 0.5 MG/2.5 ML AMPUL.NEB IH SCH ×4 (01:42→19:55)
[2016-12-14] MEDS: ALBUTEROL FS 2.5 MG/0.5 ML VIAL.NEB NEB SCH ×4 (01:42→19:55)
[2016-12-14] MEDS: POLYVINYL ALCOHOL 15 ML BOTTLE EACHEYE SCH ×3 (05:18→20:54)
[2016-12-14] MEDS: OMEPRAZOLE 20 MG CAPSULE.DR GT SCH (05:18)
[2016-12-14 08:00] VITALS: BP 107/61
[2016-12-14] MEDS: ZINC OXIDE 30 GM TUBE TP SCH ×2 (09:00→20:58)
[2016-12-14] MEDS: MVI/MINERALS LIQUID (CEROVITE) GT SCH (09:00)
[2016-12-14] MEDS: HYDROGEN PEROXIDE 480 ML BOTTLE TP SCH ×2 (09:00→20:57)
[2016-12-14] MEDS: CHLORHEXIDINE GLUCONATE 15 ML UDC MM SCH ×2 (09:00→16:17)
[2016-12-14] MEDS: Z GUARD REMEDY 4 OZ OINT TP SCH ×4 (09:00→20:58)
[2016-12-14] MEDS: PROSOURCE / PROSTAT (PYXIS) 30 ML UDC GT SCH (09:00)
[2016-12-14] MEDS: CLOTRIMAZOLE 1% 15 GM TUBE TP SCH ×2 (09:00→16:17)
[2016-12-14] MEDS: SERTRALINE HCL 25 MG TABLET GT SCH (09:00)
[2016-12-14] MEDS: CLOTRIMAZOLE/BETAMETASONE DIPROPIONATE 15 GM TUBE TP SCH ×2 (09:00→20:57)
[2016-12-14] MEDS: OCUSOFT LID SCRUB TP SCH ×2 (09:00→16:17)
[2016-12-14] MEDS: ASCORBIC ACID 500 MG TABLET GT SCH (09:00)
[2016-12-14] MEDS: MINERAL OIL/PETROLATUM,WHITE 454 GM JAR TP SCH ×2 (09:00→20:57)
[2016-12-14 11:13] VITALS: BP 107/61
[2016-12-14] MEDS: FIBERSOURCE HN 1,000 ML BOTTLE GT PRN (16:18)
[2016-12-14 20:24] VITALS: BP 101/57
[2016-12-15] MEDS: SUCRALFATE 1 G/10 ML UDC GT SCH ×6 (00:01→20:23)
[2016-12-15] MEDS: IPRATROPIUM NEB FS 0.5 MG/2.5 ML AMPUL.NEB IH SCH ×4 (01:11→19:30)
[2016-12-15] MEDS: ALBUTEROL FS 2.5 MG/0.5 ML VIAL.NEB NEB SCH ×4 (01:11→19:30)
[2016-12-15] MEDS: OMEPRAZOLE 20 MG CAPSULE.DR GT SCH (05:53)
[2016-12-15] MEDS: POLYVINYL ALCOHOL 15 ML BOTTLE EACHEYE SCH ×3 (05:53→20:23)
[2016-12-15] MEDS: FIBERSOURCE HN 1,000 ML BOTTLE GT PRN (05:53)
[2016-12-15] MEDS: VANCOMYCIN HCL 125 MG/2.5 ML ORAL.SUSP GT SCH ×3 (05:53→18:00)
[2016-12-15 08:00] VITALS: BP 100/64
[2016-12-15] MEDS: OCUSOFT LID SCRUB TP SCH ×2 (09:00→17:00)
[2016-12-15] MEDS: FAMOTIDINE/PF INJ 20 MG/2 ML VIAL IV SCH (09:00)
[2016-12-15] MEDS: MVI/MINERALS LIQUID (CEROVITE) GT SCH (09:43)
[2016-12-15] MEDS: PROSOURCE / PROSTAT (PYXIS) 30 ML UDC GT SCH (09:43)
[2016-12-15] MEDS: CHLORHEXIDINE GLUCONATE 15 ML UDC MM SCH ×2 (09:44→17:00)
[2016-12-15] MEDS: SERTRALINE HCL 25 MG TABLET GT SCH (09:44)
[2016-12-15] MEDS: ASCORBIC ACID 500 MG TABLET GT SCH (09:44)
[2016-12-15] MEDS: HYDROGEN PEROXIDE 480 ML BOTTLE TP SCH ×2 (12:30→20:23)
[2016-12-15] MEDS: Z GUARD REMEDY 4 OZ OINT TP SCH ×4 (12:30→20:24)
[2016-12-15] MEDS: ZINC OXIDE 30 GM TUBE TP SCH ×2 (12:30→20:24)
[2016-12-15] MEDS: MINERAL OIL/PETROLATUM,WHITE 454 GM JAR TP SCH ×2 (12:30→20:23)
[2016-12-15] MEDS: CLOTRIMAZOLE 1% 15 GM TUBE TP SCH ×2 (12:30→17:00)
[2016-12-15] MEDS: CLOTRIMAZOLE/BETAMETASONE DIPROPIONATE 15 GM TUBE TP SCH ×2 (12:30→20:23)
--- NOTE | 2016-12-15 12:45 | NUR ---
Ms Isidra Ayala (FOUNDER AND CHIEF TECHNICAL OFFICER) did rounds today, made aware no further nausea and vomiting noted, currently on pepcid 20mg IV push, she discontinued pepcid IV push, she ordered to change to pepcid 20 mg via GT Q 12 HRS (GERD). Noted and carried out.
--- NOTE | 2016-12-15 18:00 | NUR ---
Patients' trach changed today per protocol performed by RT, PT. TOLERATED WELL. No active bleeding noted to trach site. No resp. distress.
[2016-12-15] MEDS: FAMOTIDINE (20 MG) 20 MG TABLET GT SCH (20:23)
[2016-12-15] MEDS: NEOMY SULF/BACITRAC ZN/POLY 15 GM TUBE TP SCH (20:23)
[2016-12-15 20:42] VITALS: BP 102/64
[2016-12-16] MEDS: VANCOMYCIN HCL 125 MG/2.5 ML ORAL.SUSP GT SCH ×4 (00:22→18:04)
[2016-12-16] MEDS: SUCRALFATE 1 G/10 ML UDC GT SCH ×6 (00:23→21:25)
[2016-12-16] MEDS: IPRATROPIUM NEB FS 0.5 MG/2.5 ML AMPUL.NEB IH SCH ×4 (00:39→19:34)
[2016-12-16] MEDS: ALBUTEROL FS 2.5 MG/0.5 ML VIAL.NEB NEB SCH ×4 (00:39→19:34)
[2016-12-16] MEDS: POLYVINYL ALCOHOL 15 ML BOTTLE EACHEYE SCH ×3 (05:12→21:25)
[2016-12-16] MEDS: OMEPRAZOLE 20 MG CAPSULE.DR GT SCH (05:13)
[2016-12-16 07:50] VITALS: BP 125/73
[2016-12-16] MEDS: FAMOTIDINE (20 MG) 20 MG TABLET GT SCH (09:36)
[2016-12-16] MEDS: MVI/MINERALS LIQUID (CEROVITE) GT SCH (09:36)
[2016-12-16] MEDS: PROSOURCE / PROSTAT (PYXIS) 30 ML UDC GT SCH (09:37)
[2016-12-16] MEDS: ASCORBIC ACID 500 MG TABLET GT SCH (09:37)
[2016-12-16] MEDS: CHLORHEXIDINE GLUCONATE 15 ML UDC MM SCH ×2 (09:37→17:00)
[2016-12-16] MEDS: SERTRALINE HCL 25 MG TABLET GT SCH (09:37)
[2016-12-16] MEDS: OCUSOFT LID SCRUB TP SCH ×2 (09:37→17:00)
[2016-12-16] MEDS: FIBERSOURCE HN 1,000 ML BOTTLE GT PRN (11:50)
[2016-12-16] MEDS: MINERAL OIL/PETROLATUM,WHITE 454 GM JAR TP SCH ×2 (13:00→21:25)
[2016-12-16] MEDS: CLOTRIMAZOLE 1% 15 GM TUBE TP SCH ×2 (13:00→17:00)
[2016-12-16] MEDS: HYDROGEN PEROXIDE 480 ML BOTTLE TP SCH ×2 (13:00→21:26)
[2016-12-16] MEDS: CLOTRIMAZOLE/BETAMETASONE DIPROPIONATE 15 GM TUBE TP SCH ×2 (13:00→21:26)
[2016-12-16] MEDS: ZINC OXIDE 30 GM TUBE TP SCH ×2 (13:00→21:26)
[2016-12-16] MEDS: Z GUARD REMEDY 4 OZ OINT TP SCH ×4 (13:00→21:26)
[2016-12-16] MEDS: MORPHINE SULFATE 10 MG/5 ML GT PRN ×2 (18:00→18:16)
[2016-12-16 20:18] VITALS: BP 100/52
[2016-12-16] MEDS: PEPCID GT SCH (21:25)
[2016-12-17] MEDS: SUCRALFATE 1 G/10 ML UDC GT SCH ×6 (00:43→21:35)
[2016-12-17] MEDS: VANCOMYCIN HCL 125 MG/2.5 ML ORAL.SUSP GT SCH ×4 (00:43→17:18)
[2016-12-17] MEDS: ALBUTEROL FS 2.5 MG/0.5 ML VIAL.NEB NEB SCH ×4 (01:35→19:33)
[2016-12-17] MEDS: IPRATROPIUM NEB FS 0.5 MG/2.5 ML AMPUL.NEB IH SCH ×4 (01:35→19:33)
[2016-12-17] MEDS: OMEPRAZOLE 20 MG CAPSULE.DR GT SCH (05:25)
[2016-12-17] MEDS: POLYVINYL ALCOHOL 15 ML BOTTLE EACHEYE SCH ×3 (05:25→21:35)
[2016-12-17 07:37] VITALS: BP 107/68
[2016-12-17] MEDS: MVI/MINERALS LIQUID (CEROVITE) GT SCH ×2 (09:22→21:35)
[2016-12-17] MEDS: PROSOURCE / PROSTAT (PYXIS) 30 ML UDC GT SCH ×2 (09:22→21:35)
[2016-12-17] MEDS: HYDROGEN PEROXIDE 480 ML BOTTLE TP SCH ×2 (09:22→21:35)
[2016-12-17] MEDS: ASCORBIC ACID 500 MG TABLET GT SCH ×2 (09:22→21:35)
[2016-12-17] MEDS: PEPCID GT SCH ×2 (09:22→21:35)
[2016-12-17] MEDS: CHLORHEXIDINE GLUCONATE 15 ML UDC MM SCH ×2 (09:22→17:17)
[2016-12-17] MEDS: MINERAL OIL/PETROLATUM,WHITE 454 GM JAR TP SCH ×2 (09:22→21:35)
[2016-12-17] MEDS: SERTRALINE HCL 25 MG TABLET GT SCH (09:22)
[2016-12-17] MEDS: OCUSOFT LID SCRUB TP SCH ×2 (09:22→17:17)
[2016-12-17] MEDS: CLOTRIMAZOLE/BETAMETASONE DIPROPIONATE 15 GM TUBE TP SCH ×2 (09:28→21:35)
[2016-12-17] MEDS: Z GUARD REMEDY 4 OZ OINT TP SCH ×4 (09:28→21:35)
[2016-12-17] MEDS: ZINC OXIDE 30 GM TUBE TP SCH ×2 (09:28→21:35)
[2016-12-17] MEDS: CLOTRIMAZOLE 1% 15 GM TUBE TP SCH ×2 (09:28→17:17)
[2016-12-17 19:58] VITALS: BP 96/64
[2016-12-17] MEDS: FIBERSOURCE HN 1,000 ML BOTTLE GT PRN (21:44)
[2016-12-18] MEDS: VANCOMYCIN HCL 125 MG/2.5 ML ORAL.SUSP GT SCH ×4 (00:56→17:42)
[2016-12-18] MEDS: SUCRALFATE 1 G/10 ML UDC GT SCH ×6 (00:56→20:14)
[2016-12-18] MEDS: IPRATROPIUM NEB FS 0.5 MG/2.5 ML AMPUL.NEB IH SCH ×4 (01:41→19:30)
[2016-12-18] MEDS: ALBUTEROL FS 2.5 MG/0.5 ML VIAL.NEB NEB SCH ×4 (01:41→19:53)
[2016-12-18] MEDS: POLYVINYL ALCOHOL 15 ML BOTTLE EACHEYE SCH ×3 (05:55→20:14)
[2016-12-18] MEDS: OMEPRAZOLE 20 MG CAPSULE.DR GT SCH (05:55)
[2016-12-18 07:44] VITALS: BP 103/67
[2016-12-18] MEDS: CLOTRIMAZOLE 1% 15 GM TUBE TP SCH ×2 (09:11→17:42)
[2016-12-18] MEDS: PEPCID GT SCH ×2 (09:11→20:14)
[2016-12-18] MEDS: OCUSOFT LID SCRUB TP SCH ×2 (09:11→17:42)
[2016-12-18] MEDS: CLOTRIMAZOLE/BETAMETASONE DIPROPIONATE 15 GM TUBE TP SCH ×2 (09:11→20:15)
[2016-12-18] MEDS: CHLORHEXIDINE GLUCONATE 15 ML UDC MM SCH ×2 (09:11→17:42)
[2016-12-18] MEDS: SERTRALINE HCL 25 MG TABLET GT SCH (09:11)
[2016-12-18] MEDS: MINERAL OIL/PETROLATUM,WHITE 454 GM JAR TP SCH ×2 (09:11→20:14)
[2016-12-18] MEDS: HYDROGEN PEROXIDE 480 ML BOTTLE TP SCH ×2 (09:11→20:15)
[2016-12-18] MEDS: MORPHINE SULFATE 10 MG/5 ML GT PRN (09:12)
[2016-12-18] MEDS: Z GUARD REMEDY 4 OZ OINT TP SCH ×4 (09:12→20:15)
[2016-12-18] MEDS: ZINC OXIDE 30 GM TUBE TP SCH ×2 (09:12→20:15)
[2016-12-18] MEDS: NEOMY SULF/BACITRAC ZN/POLY 15 GM TUBE TP SCH (20:00)
[2016-12-18 20:12] VITALS: BP 109/59
[2016-12-18] MEDS: MVI/MINERALS LIQUID (CEROVITE) GT SCH (20:14)
[2016-12-18] MEDS: ASCORBIC ACID 500 MG TABLET GT SCH (20:14)
[2016-12-18] MEDS: PROSOURCE / PROSTAT (PYXIS) 30 ML UDC GT SCH (20:14)
[2016-12-18 20:17] VITALS: BP 106/68
[2016-12-18] MEDS: FIBERSOURCE HN 1,000 ML BOTTLE GT PRN (21:32)
[2016-12-19] MEDS: VANCOMYCIN HCL 125 MG/2.5 ML ORAL.SUSP GT SCH ×4 (00:08→17:01)
[2016-12-19] MEDS: SUCRALFATE 1 G/10 ML UDC GT SCH ×6 (00:09→20:26)
[2016-12-19] MEDS: ALBUTEROL FS 2.5 MG/0.5 ML VIAL.NEB NEB SCH ×4 (01:30→19:21)
[2016-12-19] MEDS: IPRATROPIUM NEB FS 0.5 MG/2.5 ML AMPUL.NEB IH SCH ×4 (01:30→19:21)
[2016-12-19] MEDS: OMEPRAZOLE 20 MG CAPSULE.DR GT SCH (05:04)
[2016-12-19] MEDS: POLYVINYL ALCOHOL 15 ML BOTTLE EACHEYE SCH ×3 (05:04→20:26)
[2016-12-19 07:18] LABS: BASOPHILS % (AUTO) 0.3 % (0.0-2.0); EOSINOPHILS # (AUTO) 0.1 /CMM (0.0-0.7); EOSINOPHILS % (AUTO) 1.6 % (0.0-6.0); HEMATOCRIT 25 % (39-51); HEMOGLOBIN 8.2 g/dL (13.5-17.5); LYMPHOCYTES # (AUTO) 0.9 /CMM (0.8-4.8); LYMPHOCYTES % (AUTO) 11.1 % (20.0-44.0); MEAN CORPUSCULAR HEMOGLOBIN 29 PG (26.0-33.0); MEAN CORPUSCULAR HGB CONC 34 g/dl (31.0-36.0); MEAN CORPUSCULAR VOLUME 85 fL (80-96); MONOCYTES # (AUTO) 0.7 /CMM (0.1-1.30); MONOCYTES % (AUTO) 8.5 % (2.0-12.0); NEUTROPHILS # (AUTO) 6.4 /CMM (1.8-8.9); NEUTROPHILS % (AUTO) 78.5 % (43.0-81.0); PLATELET COUNT (AUTO) 421 /CMM (150-450); RDW COEFFICIENT OF VARIATION 19.3 (11.5-15.0); RED BLOOD CELL COUNT(AUTO) 2.88 MIL/uL (4.5-6.0); WHITE BLOOD COUNT (AUTO) 8.1 K/uL (4.3-11.0)
[2016-12-19 07:36] VITALS: BP 105/56
[2016-12-19] MEDS: PEPCID GT SCH ×2 (09:37→20:26)
[2016-12-19] MEDS: HYDROGEN PEROXIDE 480 ML BOTTLE TP SCH ×2 (09:37→20:26)
[2016-12-19] MEDS: CHLORHEXIDINE GLUCONATE 15 ML UDC MM SCH ×2 (09:37→16:59)
[2016-12-19] MEDS: SERTRALINE HCL 25 MG TABLET GT SCH (09:37)
[2016-12-19] MEDS: OCUSOFT LID SCRUB TP SCH ×2 (09:37→16:59)
[2016-12-19] MEDS: MINERAL OIL/PETROLATUM,WHITE 454 GM JAR TP SCH ×2 (09:37→20:26)
[2016-12-19] MEDS: CLOTRIMAZOLE 1% 15 GM TUBE TP SCH ×2 (09:38→16:59)
[2016-12-19] MEDS: ZINC OXIDE 30 GM TUBE TP SCH ×2 (09:38→20:26)
[2016-12-19] MEDS: Z GUARD REMEDY 4 OZ OINT TP SCH ×4 (09:38→20:26)
[2016-12-19] MEDS: CLOTRIMAZOLE/BETAMETASONE DIPROPIONATE 15 GM TUBE TP SCH ×2 (09:38→20:26)
--- NOTE | 2016-12-19 12:13 | NUR ---
Notified RADHAMES Espinal of WBC result 8.1 (). NNO given at this time but will see patient today.
[2016-12-19 19:46] VITALS: BP 115/70
[2016-12-19] MEDS: PROSOURCE / PROSTAT (PYXIS) 30 ML UDC GT SCH (20:26)
[2016-12-19] MEDS: MULTIVIT, IRON, MIN NO. 8, FA 1 TAB GT SCH (20:26)
[2016-12-19] MEDS: ASCORBIC ACID 500 MG TABLET GT SCH (20:26)
[2016-12-19] MEDS: TEMAZEPAM 7.5 MG CAPSULE GT PRN (23:49)
[2016-12-20] MEDS: SUCRALFATE 1 G/10 ML UDC GT SCH ×6 (00:55→21:00)
[2016-12-20] MEDS: VANCOMYCIN HCL 125 MG/2.5 ML ORAL.SUSP GT SCH ×4 (00:55→18:25)
[2016-12-20] MEDS: FIBERSOURCE HN 1,000 ML BOTTLE GT PRN (01:08)
[2016-12-20] MEDS: ALBUTEROL FS 2.5 MG/0.5 ML VIAL.NEB NEB SCH ×4 (01:42→20:03)
[2016-12-20] MEDS: IPRATROPIUM NEB FS 0.5 MG/2.5 ML AMPUL.NEB IH SCH ×4 (01:42→20:03)
[2016-12-20] MEDS: OMEPRAZOLE 20 MG CAPSULE.DR GT SCH (05:55)
[2016-12-20] MEDS: POLYVINYL ALCOHOL 15 ML BOTTLE EACHEYE SCH ×3 (05:55→21:00)
[2016-12-20 07:31] VITALS: BP 108/68
[2016-12-20] MEDS: CHLORHEXIDINE GLUCONATE 15 ML UDC MM SCH ×2 (09:48→17:00)
[2016-12-20] MEDS: PEPCID GT SCH ×2 (09:48→21:00)
[2016-12-20] MEDS: SERTRALINE HCL 25 MG TABLET GT SCH (09:48)
[2016-12-20] MEDS: Z GUARD REMEDY 4 OZ OINT TP SCH ×4 (15:00→21:00)
[2016-12-20] MEDS: MINERAL OIL/PETROLATUM,WHITE 454 GM JAR TP SCH ×2 (16:00→21:00)
[2016-12-20] MEDS: CLOTRIMAZOLE/BETAMETASONE DIPROPIONATE 15 GM TUBE TP SCH ×2 (16:00→21:00)
[2016-12-20] MEDS: ZINC OXIDE 30 GM TUBE TP SCH ×2 (16:00→21:00)
[2016-12-20] MEDS: OCUSOFT LID SCRUB TP SCH ×2 (16:00→17:00)
[2016-12-20] MEDS: HYDROGEN PEROXIDE 480 ML BOTTLE TP SCH ×2 (16:00→21:00)
[2016-12-20] MEDS: CLOTRIMAZOLE 1% 15 GM TUBE TP SCH ×2 (16:00→17:00)
[2016-12-20 20:13] VITALS: BP 101/64
[2016-12-20] MEDS: MULTIVIT, IRON, MIN NO. 8, FA 1 TAB GT SCH (21:00)
[2016-12-20] MEDS: ASCORBIC ACID 500 MG TABLET GT SCH (21:00)
[2016-12-20] MEDS: PROSOURCE / PROSTAT (PYXIS) 30 ML UDC GT SCH (21:00)
[2016-12-21] MEDS: SUCRALFATE 1 G/10 ML UDC GT SCH ×6 (00:57→21:22)
[2016-12-21] MEDS: VANCOMYCIN HCL 125 MG/2.5 ML ORAL.SUSP GT SCH ×4 (00:57→17:13)
[2016-12-21] MEDS: IPRATROPIUM NEB FS 0.5 MG/2.5 ML AMPUL.NEB IH SCH ×4 (02:23→19:21)
[2016-12-21] MEDS: ALBUTEROL FS 2.5 MG/0.5 ML VIAL.NEB NEB SCH ×4 (02:23→19:21)
[2016-12-21] MEDS: POLYVINYL ALCOHOL 15 ML BOTTLE EACHEYE SCH ×3 (05:22→21:22)
[2016-12-21] MEDS: OMEPRAZOLE 20 MG CAPSULE.DR GT SCH (05:23)
[2016-12-21 07:33] VITALS: BP 119/71
[2016-12-21] MEDS: PEPCID GT SCH ×2 (09:54→21:22)
[2016-12-21] MEDS: SERTRALINE HCL 25 MG TABLET GT SCH (09:54)
[2016-12-21] MEDS: ZINC OXIDE 30 GM TUBE TP SCH ×2 (09:55→21:23)
[2016-12-21] MEDS: Z GUARD REMEDY 4 OZ OINT TP SCH ×4 (09:55→21:23)
[2016-12-21] MEDS: CLOTRIMAZOLE 1% 15 GM TUBE TP SCH ×2 (09:55→17:13)
[2016-12-21] MEDS: HYDROGEN PEROXIDE 480 ML BOTTLE TP SCH ×2 (09:55→21:23)
[2016-12-21] MEDS: MINERAL OIL/PETROLATUM,WHITE 454 GM JAR TP SCH ×2 (09:55→21:23)
[2016-12-21] MEDS: CLOTRIMAZOLE/BETAMETASONE DIPROPIONATE 15 GM TUBE TP SCH ×2 (09:55→21:23)
[2016-12-21] MEDS: CHLORHEXIDINE GLUCONATE 15 ML UDC MM SCH ×2 (09:55→17:12)
[2016-12-21] MEDS: OCUSOFT LID SCRUB TP SCH ×2 (09:55→17:13)
[2016-12-21] MEDS: NEOMY SULF/BACITRAC ZN/POLY 15 GM TUBE TP SCH (19:30)
[2016-12-21 20:13] VITALS: BP 120/83
[2016-12-21] MEDS: PROSOURCE / PROSTAT (PYXIS) 30 ML UDC GT SCH (21:23)
[2016-12-21] MEDS: ASCORBIC ACID 500 MG TABLET GT SCH (21:23)
[2016-12-21] MEDS: MULTIVIT, IRON, MIN NO. 8, FA 1 TAB GT SCH (21:23)
[2016-12-22] MEDS: VANCOMYCIN HCL 125 MG/2.5 ML ORAL.SUSP GT SCH ×5 (00:51→23:20)
[2016-12-22] MEDS: SUCRALFATE 1 G/10 ML UDC GT SCH ×6 (00:51→21:20)
[2016-12-22] MEDS: ALBUTEROL FS 2.5 MG/0.5 ML VIAL.NEB NEB SCH ×4 (01:19→19:37)
[2016-12-22] MEDS: IPRATROPIUM NEB FS 0.5 MG/2.5 ML AMPUL.NEB IH SCH ×4 (01:19→19:37)
[2016-12-22] MEDS: POLYVINYL ALCOHOL 15 ML BOTTLE EACHEYE SCH ×3 (05:17→21:20)
[2016-12-22] MEDS: OMEPRAZOLE 20 MG CAPSULE.DR GT SCH (05:17)
[2016-12-22 07:33] VITALS: BP 123/81
[2016-12-22] MEDS: PEPCID GT SCH ×2 (08:43→21:20)
[2016-12-22] MEDS: CHLORHEXIDINE GLUCONATE 15 ML UDC MM SCH ×2 (08:43→17:00)
[2016-12-22] MEDS: SERTRALINE HCL 25 MG TABLET GT SCH (08:43)
--- NOTE | 2016-12-22 08:55 | NUR ---
IDT meeting held, family unable to attend the meeting. Reviewed current medication orders, treatment and labs. Resident noted with a favorable weight gain per dietary (currently at a weight of 107lb). Resident continues on contact isolation. Addendum: 12/22/16 at 0856 by CAROLINE SÁNCHEZ IDT MEETING HELD 12/19/2016 AT 12:30pm
[2016-12-22] MEDS: OCUSOFT LID SCRUB TP SCH ×2 (09:00→17:00)
[2016-12-22] MEDS: CLOTRIMAZOLE 1% 15 GM TUBE TP SCH ×2 (09:00→17:00)
[2016-12-22] MEDS: MINERAL OIL/PETROLATUM,WHITE 454 GM JAR TP SCH ×2 (09:00→21:21)
[2016-12-22] MEDS: Z GUARD REMEDY 4 OZ OINT TP SCH ×4 (09:00→21:21)
[2016-12-22] MEDS: HYDROGEN PEROXIDE 480 ML BOTTLE TP SCH ×2 (09:00→21:21)
[2016-12-22] MEDS: ZINC OXIDE 30 GM TUBE TP SCH ×2 (09:00→21:21)
[2016-12-22] MEDS: CLOTRIMAZOLE/BETAMETASONE DIPROPIONATE 15 GM TUBE TP SCH ×2 (09:00→21:21)
--- NOTE | 2016-12-22 09:19 | NUR ---
RT PATIENT REC'D TRACHED ON [facility] VENT WITH SETTINGS SET PER MD RACHEAL OLIVERA. VENT ALARMS CHECKED + AUDIBLE. 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 VENT PLUGGED INTO RED OUTLET. SUCTIONED WITH SMALL/MOD AMT PALE SEMITHICK SECRETIONS. B/S DIM COARSE. AMBU BAG + BACK UP TRACH AT HOB. CONT CURRENT PLAN OF RESP CARE. Addendum: 12/22/16 at 0920 by DIALLO SEGURA RT Amended: Links added.
[2016-12-22] MEDS: MULTIVIT, IRON, MIN NO. 8, FA 1 TAB GT SCH (21:21)
[2016-12-22] MEDS: PROSOURCE / PROSTAT (PYXIS) 30 ML UDC GT SCH (21:21)
[2016-12-22] MEDS: ASCORBIC ACID 500 MG TABLET GT SCH (21:21)
[2016-12-23] MEDS: SUCRALFATE 1 G/10 ML UDC GT SCH ×6 (01:00→21:45)
[2016-12-23] MEDS: ALBUTEROL FS 2.5 MG/0.5 ML VIAL.NEB NEB SCH ×4 (02:17→20:20)
[2016-12-23] MEDS: IPRATROPIUM NEB FS 0.5 MG/2.5 ML AMPUL.NEB IH SCH ×4 (02:17→20:20)
[2016-12-23] MEDS: OMEPRAZOLE 20 MG CAPSULE.DR GT SCH (05:44)
[2016-12-23] MEDS: POLYVINYL ALCOHOL 15 ML BOTTLE EACHEYE SCH ×3 (05:44→21:45)
[2016-12-23] MEDS: VANCOMYCIN HCL 125 MG/2.5 ML ORAL.SUSP GT SCH ×3 (05:44→17:29)
[2016-12-23 07:42] VITALS: BP 143/85
[2016-12-23] MEDS: CHLORHEXIDINE GLUCONATE 15 ML UDC MM SCH ×2 (08:58→17:28)
[2016-12-23] MEDS: CLOTRIMAZOLE 1% 15 GM TUBE TP SCH ×2 (08:58→17:29)
[2016-12-23] MEDS: HYDROGEN PEROXIDE 480 ML BOTTLE TP SCH ×2 (08:58→21:46)
[2016-12-23] MEDS: PEPCID GT SCH ×2 (08:58→21:45)
[2016-12-23] MEDS: MINERAL OIL/PETROLATUM,WHITE 454 GM JAR TP SCH ×2 (08:58→21:45)
[2016-12-23] MEDS: SERTRALINE HCL 25 MG TABLET GT SCH (08:58)
[2016-12-23] MEDS: OCUSOFT LID SCRUB TP SCH ×2 (08:58→17:29)
[2016-12-23] MEDS: ZINC OXIDE 30 GM TUBE TP SCH ×2 (08:59→21:51)
[2016-12-23] MEDS: Z GUARD REMEDY 4 OZ OINT TP SCH ×4 (08:59→21:51)
[2016-12-23] MEDS: CLOTRIMAZOLE/BETAMETASONE DIPROPIONATE 15 GM TUBE TP SCH ×2 (08:59→21:46)
[2016-12-23 20:05] VITALS: BP 108/71
[2016-12-23] MEDS: ASCORBIC ACID 500 MG TABLET GT SCH (21:45)
[2016-12-23] MEDS: MULTIVIT, IRON, MIN NO. 8, FA 1 TAB GT SCH (21:45)
[2016-12-23] MEDS: PROSOURCE / PROSTAT (PYXIS) 30 ML UDC GT SCH (21:45)
[2016-12-24] MEDS: VANCOMYCIN HCL 125 MG/2.5 ML ORAL.SUSP GT SCH ×6 (00:17→17:30)
[2016-12-24] MEDS: SUCRALFATE 1 G/10 ML UDC GT SCH ×6 (00:17→21:30)
[2016-12-24] MEDS: IPRATROPIUM NEB FS 0.5 MG/2.5 ML AMPUL.NEB IH SCH ×4 (02:27→19:51)
[2016-12-24] MEDS: ALBUTEROL FS 2.5 MG/0.5 ML VIAL.NEB NEB SCH ×4 (02:27→19:51)
[2016-12-24] MEDS: POLYVINYL ALCOHOL 15 ML BOTTLE EACHEYE SCH ×3 (05:00→21:30)
[2016-12-24] MEDS: OMEPRAZOLE 20 MG CAPSULE.DR GT SCH (05:40)
[2016-12-24 07:47] VITALS: BP 119/79
[2016-12-24] MEDS: MINERAL OIL/PETROLATUM,WHITE 454 GM JAR TP SCH ×2 (09:06→21:30)
[2016-12-24] MEDS: CHLORHEXIDINE GLUCONATE 15 ML UDC MM SCH ×2 (09:06→17:30)
[2016-12-24] MEDS: HYDROGEN PEROXIDE 480 ML BOTTLE TP SCH ×2 (09:06→21:30)
[2016-12-24] MEDS: SERTRALINE HCL 25 MG TABLET GT SCH (09:06)
[2016-12-24] MEDS: OCUSOFT LID SCRUB TP SCH ×2 (09:06→17:30)
[2016-12-24] MEDS: PEPCID GT SCH ×2 (09:06→21:30)
[2016-12-24] MEDS: CLOTRIMAZOLE 1% 15 GM TUBE TP SCH ×2 (09:07→17:30)
[2016-12-24] MEDS: ZINC OXIDE 30 GM TUBE TP SCH ×2 (09:07→21:31)
[2016-12-24] MEDS: Z GUARD REMEDY 4 OZ OINT TP SCH ×4 (09:07→21:31)
[2016-12-24] MEDS: CLOTRIMAZOLE/BETAMETASONE DIPROPIONATE 15 GM TUBE TP SCH ×2 (09:07→21:30)
--- NOTE | 2016-12-24 12:16 | NUR ---
Seen and examined by Jamie Miner NP, for Dr. Reese no new order given at this time.
[2016-12-24] MEDS: NEOMY SULF/BACITRAC ZN/POLY 15 GM TUBE TP SCH (19:30)
--- NOTE | 2016-12-24 20:00 | NUR ---
seen by Kylie with new orders to continue Vancocin 125mg via gt q6 hrs x 10 more days for c- diff.Will carry out orders.
[2016-12-24 20:08] VITALS: BP 113/67
[2016-12-24] MEDS: PROSOURCE / PROSTAT (PYXIS) 30 ML UDC GT SCH (21:30)
[2016-12-24] MEDS: MULTIVIT, IRON, MIN NO. 8, FA 1 TAB GT SCH (21:30)
[2016-12-24] MEDS: ASCORBIC ACID 500 MG TABLET GT SCH (21:30)
[2016-12-24] MEDS: FIBERSOURCE HN 1,000 ML BOTTLE GT PRN (21:33)
[2016-12-25] MEDS: VANCOMYCIN HCL 125 MG/2.5 ML ORAL.SUSP GT SCH (00:16)
[2016-12-25] MEDS: SUCRALFATE 1 G/10 ML UDC GT SCH ×6 (01:28→20:48)
[2016-12-25] MEDS: ALBUTEROL FS 2.5 MG/0.5 ML VIAL.NEB NEB SCH ×4 (02:31→19:20)
[2016-12-25] MEDS: IPRATROPIUM NEB FS 0.5 MG/2.5 ML AMPUL.NEB IH SCH ×4 (02:31→19:20)
[2016-12-25] MEDS: POLYVINYL ALCOHOL 15 ML BOTTLE EACHEYE SCH ×3 (05:24→20:48)
[2016-12-25] MEDS: OMEPRAZOLE 20 MG CAPSULE.DR GT SCH (05:24)
[2016-12-25 07:43] VITALS: BP 119/69
[2016-12-25] MEDS: HYDROGEN PEROXIDE 480 ML BOTTLE TP SCH ×2 (09:00→20:48)
[2016-12-25] MEDS: SERTRALINE HCL 25 MG TABLET GT SCH (09:00)
[2016-12-25] MEDS: MINERAL OIL/PETROLATUM,WHITE 454 GM JAR TP SCH ×2 (09:00→20:48)
[2016-12-25] MEDS: PEPCID GT SCH ×2 (09:00→20:48)
[2016-12-25] MEDS: CLOTRIMAZOLE/BETAMETASONE DIPROPIONATE 15 GM TUBE TP SCH (09:00)
[2016-12-25] MEDS: CHLORHEXIDINE GLUCONATE 15 ML UDC MM SCH ×2 (09:00→17:00)
[2016-12-25] MEDS: CLOTRIMAZOLE 1% 15 GM TUBE TP SCH ×2 (09:00→17:00)
[2016-12-25] MEDS: OCUSOFT LID SCRUB TP SCH ×2 (09:00→17:00)
[2016-12-25] MEDS: ZINC OXIDE 30 GM TUBE TP SCH (09:00)
[2016-12-25] MEDS: Z GUARD REMEDY 4 OZ OINT TP SCH ×3 (09:00→20:49)
[2016-12-25 19:59] VITALS: BP 118/66
[2016-12-25] MEDS: ASCORBIC ACID 500 MG TABLET GT SCH (20:48)
[2016-12-25] MEDS: PROSOURCE / PROSTAT (PYXIS) 30 ML UDC GT SCH (20:48)
[2016-12-25] MEDS: MULTIVIT, IRON, MIN NO. 8, FA 1 TAB GT SCH (20:48)
[2016-12-26] MEDS: SUCRALFATE 1 G/10 ML UDC GT SCH ×6 (00:49→21:59)
[2016-12-26] MEDS: IPRATROPIUM NEB FS 0.5 MG/2.5 ML AMPUL.NEB IH SCH ×4 (02:14→19:44)
[2016-12-26] MEDS: ALBUTEROL FS 2.5 MG/0.5 ML VIAL.NEB NEB SCH ×4 (02:14→19:44)
[2016-12-26] MEDS: POLYVINYL ALCOHOL 15 ML BOTTLE EACHEYE SCH ×3 (05:48→21:59)
[2016-12-26] MEDS: OMEPRAZOLE 20 MG CAPSULE.DR GT SCH (05:49)
[2016-12-26 07:48] VITALS: BP 131/76
[2016-12-26] MEDS: CHLORHEXIDINE GLUCONATE 15 ML UDC MM SCH ×2 (08:57→17:38)
[2016-12-26] MEDS: OCUSOFT LID SCRUB TP SCH ×2 (08:57→17:38)
[2016-12-26] MEDS: MINERAL OIL/PETROLATUM,WHITE 454 GM JAR TP SCH ×2 (08:57→21:59)
[2016-12-26] MEDS: PEPCID GT SCH ×2 (08:57→21:59)
[2016-12-26] MEDS: SERTRALINE HCL 25 MG TABLET GT SCH (08:57)
[2016-12-26] MEDS: HYDROGEN PEROXIDE 480 ML BOTTLE TP SCH ×2 (08:57→21:59)
[2016-12-26] MEDS: Z GUARD REMEDY 4 OZ OINT TP SCH ×2 (08:58→21:59)
[2016-12-26] MEDS: CLOTRIMAZOLE 1% 15 GM TUBE TP SCH ×2 (08:58→17:38)
[2016-12-26] MEDS: VANCOMYCIN HCL 125 MG/2.5 ML ORAL.SUSP GT SCH ×2 (12:00→17:40)
--- NOTE | 2016-12-26 18:40 | NUR ---
Seen and examined by Dio Maldonado NP, station detective for Dr. Vance Reviewed medications/ treatment with new order for DVT pump. Orders noted and carried out.
[2016-12-26 19:50] VITALS: BP 123/92
[2016-12-26] MEDS: FIBERSOURCE HN 1,000 ML BOTTLE GT PRN (21:59)
[2016-12-26] MEDS: MULTIVIT, IRON, MIN NO. 8, FA 1 TAB GT SCH (21:59)
[2016-12-26] MEDS: PROSOURCE / PROSTAT (PYXIS) 30 ML UDC GT SCH (21:59)
[2016-12-26] MEDS: ASCORBIC ACID 500 MG TABLET GT SCH (21:59)
[2016-12-27] MEDS: SUCRALFATE 1 G/10 ML UDC GT SCH ×6 (00:29→21:25)
[2016-12-27] MEDS: VANCOMYCIN HCL 125 MG/2.5 ML ORAL.SUSP GT SCH ×4 (00:29→18:15)
[2016-12-27] MEDS: TEMAZEPAM 7.5 MG CAPSULE GT PRN (00:36)
[2016-12-27] MEDS: ALBUTEROL FS 2.5 MG/0.5 ML VIAL.NEB NEB SCH ×4 (01:52→19:55)
[2016-12-27] MEDS: IPRATROPIUM NEB FS 0.5 MG/2.5 ML AMPUL.NEB IH SCH ×4 (01:52→19:55)
[2016-12-27] MEDS: POLYVINYL ALCOHOL 15 ML BOTTLE EACHEYE SCH ×3 (05:22→21:25)
[2016-12-27] MEDS: OMEPRAZOLE 20 MG CAPSULE.DR GT SCH (05:22)
[2016-12-27 08:20] VITALS: BP 112/70
[2016-12-27] MEDS: Z GUARD REMEDY 4 OZ OINT TP SCH ×2 (09:00→21:25)
[2016-12-27] MEDS: CLOTRIMAZOLE 1% 15 GM TUBE TP SCH ×2 (09:00→17:00)
[2016-12-27] MEDS: CLOTRIMAZOLE/BETAMETASONE DIPROPIONATE 15 GM TUBE TP SCH ×2 (09:00→21:25)
[2016-12-27] MEDS: ZINC OXIDE 30 GM TUBE TP SCH ×2 (09:00→21:26)
[2016-12-27] MEDS: HYDROGEN PEROXIDE 480 ML BOTTLE TP SCH ×2 (09:00→21:25)
[2016-12-27] MEDS: SERTRALINE HCL 25 MG TABLET GT SCH (09:48)
[2016-12-27] MEDS: PEPCID GT SCH ×2 (09:48→21:25)
[2016-12-27] MEDS: MINERAL OIL/PETROLATUM,WHITE 454 GM JAR TP SCH ×2 (09:49→21:25)
[2016-12-27] MEDS: CHLORHEXIDINE GLUCONATE 15 ML UDC MM SCH ×2 (09:49→17:00)
[2016-12-27] MEDS: OCUSOFT LID SCRUB TP SCH ×2 (09:49→17:00)
[2016-12-27] MEDS: FIBERSOURCE HN 1,000 ML BOTTLE GT PRN (12:59)
[2016-12-27 20:00] VITALS: BP 121/70
[2016-12-27] MEDS: ASCORBIC ACID 500 MG TABLET GT SCH (21:25)
[2016-12-27] MEDS: MULTIVIT, IRON, MIN NO. 8, FA 1 TAB GT SCH (21:25)
[2016-12-27] MEDS: PROSOURCE / PROSTAT (PYXIS) 30 ML UDC GT SCH (21:25)
[2016-12-28] MEDS: SUCRALFATE 1 G/10 ML UDC GT SCH ×6 (00:17→20:57)
[2016-12-28] MEDS: VANCOMYCIN HCL 125 MG/2.5 ML ORAL.SUSP GT SCH ×4 (00:17→17:16)
[2016-12-28] MEDS: FIBERSOURCE HN 1,000 ML BOTTLE GT PRN ×2 (01:39→17:18)
[2016-12-28] MEDS: IPRATROPIUM NEB FS 0.5 MG/2.5 ML AMPUL.NEB IH SCH ×4 (02:13→19:22)
[2016-12-28] MEDS: ALBUTEROL FS 2.5 MG/0.5 ML VIAL.NEB NEB SCH ×4 (02:13→19:22)
[2016-12-28] MEDS: OMEPRAZOLE 20 MG CAPSULE.DR GT SCH (05:07)
[2016-12-28] MEDS: POLYVINYL ALCOHOL 15 ML BOTTLE EACHEYE SCH ×3 (05:07→20:57)
[2016-12-28 07:41] VITALS: BP 97/57
--- NOTE | 2016-12-28 09:22 | NUR ---
RT PATIENT REC'D TRACHED ON [facility] VENT WITH SETTINGS SET PER MD RACHEAL OLIVERA. VENT ALARMS CHECKED + AUDIBLE. 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 VENT PLUGGED INTO RED OUTLET. SUCTIONED WITH SMALL/MOD AMT PALE SEMITHICK SECRETIONS. B/S DIM COARSE. AMBU BAG + BACK UP TRACH AT HOB. CONT CURRENT PLAN OF RESP CARE. Addendum: 12/28/16 at 0922 by DIALLO SEGURA RT Amended: Links added.
[2016-12-28] MEDS: OCUSOFT LID SCRUB TP SCH ×2 (09:33→17:16)
[2016-12-28] MEDS: MINERAL OIL/PETROLATUM,WHITE 454 GM JAR TP SCH ×2 (09:33→20:58)
[2016-12-28] MEDS: CHLORHEXIDINE GLUCONATE 15 ML UDC MM SCH ×2 (09:33→17:16)
[2016-12-28] MEDS: HYDROGEN PEROXIDE 480 ML BOTTLE TP SCH ×2 (09:33→20:58)
[2016-12-28] MEDS: Z GUARD REMEDY 4 OZ OINT TP SCH ×2 (09:33→20:58)
[2016-12-28] MEDS: CLOTRIMAZOLE/BETAMETASONE DIPROPIONATE 15 GM TUBE TP SCH ×2 (09:33→20:58)
[2016-12-28] MEDS: PEPCID GT SCH ×2 (09:33→20:57)
[2016-12-28] MEDS: SERTRALINE HCL 25 MG TABLET GT SCH (09:33)
[2016-12-28] MEDS: CLOTRIMAZOLE 1% 15 GM TUBE TP SCH ×2 (09:33→17:16)
[2016-12-28] MEDS: ZINC OXIDE 30 GM TUBE TP SCH ×2 (09:34→20:58)
[2016-12-28 20:06] VITALS: BP 101/62
[2016-12-28] MEDS: PROSOURCE / PROSTAT (PYXIS) 30 ML UDC GT SCH (20:57)
[2016-12-28] MEDS: ASCORBIC ACID 500 MG TABLET GT SCH (20:58)
[2016-12-28] MEDS: MULTIVIT, IRON, MIN NO. 8, FA 1 TAB GT SCH (20:58)
[2016-12-29] MEDS: ALBUTEROL FS 2.5 MG/0.5 ML VIAL.NEB NEB SCH ×4 (01:03→19:30)
[2016-12-29] MEDS: IPRATROPIUM NEB FS 0.5 MG/2.5 ML AMPUL.NEB IH SCH ×4 (01:03→19:30)
[2016-12-29] MEDS: SUCRALFATE 1 G/10 ML UDC GT SCH ×6 (01:25→21:39)
[2016-12-29] MEDS: POLYVINYL ALCOHOL 15 ML BOTTLE EACHEYE SCH ×3 (05:50→21:39)
[2016-12-29] MEDS: OMEPRAZOLE 20 MG CAPSULE.DR GT SCH (05:52)
[2016-12-29] MEDS: VANCOMYCIN HCL 125 MG/2.5 ML ORAL.SUSP GT SCH ×5 (05:52→23:35)
[2016-12-29] MEDS: SERTRALINE HCL 25 MG TABLET GT SCH (09:14)
[2016-12-29] MEDS: CHLORHEXIDINE GLUCONATE 15 ML UDC MM SCH ×2 (09:14→17:38)
[2016-12-29] MEDS: PEPCID GT SCH ×2 (09:14→21:39)
[2016-12-29] MEDS: MINERAL OIL/PETROLATUM,WHITE 454 GM JAR TP SCH ×2 (09:15→21:40)
[2016-12-29] MEDS: HYDROGEN PEROXIDE 480 ML BOTTLE TP SCH ×2 (09:15→21:40)
[2016-12-29] MEDS: ZINC OXIDE 30 GM TUBE TP SCH ×2 (09:15→21:40)
[2016-12-29] MEDS: CLOTRIMAZOLE 1% 15 GM TUBE TP SCH ×2 (09:15→17:38)
[2016-12-29] MEDS: CLOTRIMAZOLE/BETAMETASONE DIPROPIONATE 15 GM TUBE TP SCH ×2 (09:15→21:40)
[2016-12-29] MEDS: Z GUARD REMEDY 4 OZ OINT TP SCH ×2 (09:15→21:40)
[2016-12-29] MEDS: OCUSOFT LID SCRUB TP SCH ×2 (09:15→17:38)
[2016-12-29 12:41] VITALS: BP 139/75
[2016-12-29 20:00] VITALS: BP 107/68
[2016-12-29 20:26] VITALS: BP 107/67
[2016-12-29] MEDS: PROSOURCE / PROSTAT (PYXIS) 30 ML UDC GT SCH (21:39)
[2016-12-29] MEDS: ASCORBIC ACID 500 MG TABLET GT SCH (21:40)
[2016-12-29] MEDS: MULTIVIT, IRON, MIN NO. 8, FA 1 TAB GT SCH (21:40)
[2016-12-30] MEDS: FIBERSOURCE HN 1,000 ML BOTTLE GT PRN (00:39)
[2016-12-30] MEDS: SUCRALFATE 1 G/10 ML UDC GT SCH ×6 (01:09→20:22)
[2016-12-30] MEDS: IPRATROPIUM NEB FS 0.5 MG/2.5 ML AMPUL.NEB IH SCH ×4 (01:49→19:48)
[2016-12-30] MEDS: ALBUTEROL FS 2.5 MG/0.5 ML VIAL.NEB NEB SCH ×4 (01:49→19:48)
[2016-12-30] MEDS: POLYVINYL ALCOHOL 15 ML BOTTLE EACHEYE SCH ×3 (04:10→20:22)
[2016-12-30] MEDS: OMEPRAZOLE 20 MG CAPSULE.DR GT SCH (05:04)
[2016-12-30] MEDS: VANCOMYCIN HCL 125 MG/2.5 ML ORAL.SUSP GT SCH ×3 (05:04→17:20)
[2016-12-30 07:55] VITALS: BP 116/70
[2016-12-30] MEDS: CHLORHEXIDINE GLUCONATE 15 ML UDC MM SCH ×2 (08:59→17:20)
[2016-12-30] MEDS: PEPCID GT SCH ×2 (08:59→20:23)
[2016-12-30] MEDS: SERTRALINE HCL 25 MG TABLET GT SCH (08:59)
[2016-12-30] MEDS: CLOTRIMAZOLE/BETAMETASONE DIPROPIONATE 15 GM TUBE TP SCH ×2 (09:00→20:23)
[2016-12-30] MEDS: CLOTRIMAZOLE 1% 15 GM TUBE TP SCH ×2 (09:00→17:20)
[2016-12-30] MEDS: MINERAL OIL/PETROLATUM,WHITE 454 GM JAR TP SCH ×2 (09:00→20:23)
[2016-12-30] MEDS: Z GUARD REMEDY 4 OZ OINT TP SCH ×2 (09:00→20:23)
[2016-12-30] MEDS: OCUSOFT LID SCRUB TP SCH ×2 (09:00→17:20)
[2016-12-30] MEDS: ZINC OXIDE 30 GM TUBE TP SCH ×2 (09:00→20:23)
[2016-12-30] MEDS: HYDROGEN PEROXIDE 480 ML BOTTLE TP SCH ×2 (09:00→20:23)
--- NOTE | 2016-12-30 18:45 | NUR ---
Resident awake and verbally responsive. No episode of diarrhea at this time. Resident is afebrile. All needs attended, will continue to monitor.
[2016-12-30 19:57] VITALS: BP 119/67
[2016-12-30] MEDS: ASCORBIC ACID 500 MG TABLET GT SCH (20:23)
[2016-12-30] MEDS: MULTIVIT, IRON, MIN NO. 8, FA 1 TAB GT SCH (20:23)
[2016-12-30] MEDS: PROSOURCE / PROSTAT (PYXIS) 30 ML UDC GT SCH (20:23)
[2016-12-31] MEDS: IPRATROPIUM NEB FS 0.5 MG/2.5 ML AMPUL.NEB IH SCH ×4 (01:26→19:37)
[2016-12-31] MEDS: ALBUTEROL FS 2.5 MG/0.5 ML VIAL.NEB NEB SCH ×4 (01:26→19:37)
[2016-12-31] MEDS: SUCRALFATE 1 G/10 ML UDC GT SCH ×6 (01:36→20:38)
[2016-12-31] MEDS: POLYVINYL ALCOHOL 15 ML BOTTLE EACHEYE SCH ×3 (05:00→20:37)
[2016-12-31] MEDS: VANCOMYCIN HCL 125 MG/2.5 ML ORAL.SUSP GT SCH ×4 (06:15→17:10)
[2016-12-31] MEDS: OMEPRAZOLE 20 MG CAPSULE.DR GT SCH (06:15)
[2016-12-31] MEDS: MINERAL OIL/PETROLATUM,WHITE 454 GM JAR TP SCH ×2 (08:01→20:39)
[2016-12-31] MEDS: PEPCID GT SCH ×2 (08:01→20:38)
[2016-12-31] MEDS: HYDROGEN PEROXIDE 480 ML BOTTLE TP SCH ×2 (08:01→20:39)
[2016-12-31] MEDS: CLOTRIMAZOLE 1% 15 GM TUBE TP SCH ×2 (08:01→17:10)
[2016-12-31] MEDS: SERTRALINE HCL 25 MG TABLET GT SCH (08:01)
[2016-12-31] MEDS: OCUSOFT LID SCRUB TP SCH ×2 (08:01→17:10)
[2016-12-31] MEDS: CHLORHEXIDINE GLUCONATE 15 ML UDC MM SCH ×2 (08:01→17:10)
[2016-12-31] MEDS: Z GUARD REMEDY 4 OZ OINT TP SCH ×2 (08:02→20:39)
[2016-12-31] MEDS: ZINC OXIDE 30 GM TUBE TP SCH ×2 (08:02→20:39)
[2016-12-31] MEDS: CLOTRIMAZOLE/BETAMETASONE DIPROPIONATE 15 GM TUBE TP SCH ×2 (08:02→20:39)
[2016-12-31] MEDS: FIBERSOURCE HN 1,000 ML BOTTLE GT PRN ×2 (08:02→22:00)
[2016-12-31 08:09] VITALS: BP 117/66
[2016-12-31 19:42] VITALS: BP 110/65
[2016-12-31 19:44] VITALS: BP 112/84
[2016-12-31] MEDS: ASCORBIC ACID 500 MG TABLET GT SCH (20:39)
[2016-12-31] MEDS: PROSOURCE / PROSTAT (PYXIS) 30 ML UDC GT SCH (20:39)
[2016-12-31] MEDS: MULTIVIT, IRON, MIN NO. 8, FA 1 TAB GT SCH (20:39)
[2017-01-01] MEDS: SUCRALFATE 1 G/10 ML UDC GT SCH ×6 (00:35→21:32)
[2017-01-01] MEDS: VANCOMYCIN HCL 125 MG/2.5 ML ORAL.SUSP GT SCH ×4 (00:35→17:12)
[2017-01-01] MEDS: IPRATROPIUM NEB FS 0.5 MG/2.5 ML AMPUL.NEB IH SCH ×4 (01:35→20:23)
[2017-01-01] MEDS: ALBUTEROL FS 2.5 MG/0.5 ML VIAL.NEB NEB SCH ×4 (01:35→20:23)
[2017-01-01] MEDS: POLYVINYL ALCOHOL 15 ML BOTTLE EACHEYE SCH ×3 (05:37→21:32)
[2017-01-01] MEDS: OMEPRAZOLE 20 MG CAPSULE.DR GT SCH (05:37)
[2017-01-01 07:48] VITALS: BP 115/67
[2017-01-01] MEDS: ZINC OXIDE 30 GM TUBE TP SCH ×2 (09:00→21:32)
[2017-01-01] MEDS: CHLORHEXIDINE GLUCONATE 15 ML UDC MM SCH ×2 (09:00→16:25)
[2017-01-01] MEDS: CLOTRIMAZOLE/BETAMETASONE DIPROPIONATE 15 GM TUBE TP SCH ×2 (09:00→21:32)
[2017-01-01] MEDS: MINERAL OIL/PETROLATUM,WHITE 454 GM JAR TP SCH ×2 (09:00→21:32)
[2017-01-01] MEDS: OCUSOFT LID SCRUB TP SCH ×2 (09:00→16:25)
[2017-01-01] MEDS: SERTRALINE HCL 25 MG TABLET GT SCH (09:00)
[2017-01-01] MEDS: HYDROGEN PEROXIDE 480 ML BOTTLE TP SCH ×2 (09:00→21:32)
[2017-01-01] MEDS: Z GUARD REMEDY 4 OZ OINT TP SCH ×2 (09:00→21:32)
[2017-01-01] MEDS: CLOTRIMAZOLE 1% 15 GM TUBE TP SCH ×2 (09:00→17:12)
[2017-01-01] MEDS: PEPCID GT SCH ×2 (09:01→21:32)
[2017-01-01] MEDS: ASCORBIC ACID 500 MG TABLET GT SCH (21:32)
[2017-01-01] MEDS: PROSOURCE / PROSTAT (PYXIS) 30 ML UDC GT SCH (21:32)
[2017-01-01] MEDS: MULTIVIT, IRON, MIN NO. 8, FA 1 TAB GT SCH (21:32)
[2017-01-02] MEDS: VANCOMYCIN HCL 125 MG/2.5 ML ORAL.SUSP GT SCH ×4 (00:42→17:10)
[2017-01-02] MEDS: SUCRALFATE 1 G/10 ML UDC GT SCH ×6 (00:42→21:30)
[2017-01-02] MEDS: IPRATROPIUM NEB FS 0.5 MG/2.5 ML AMPUL.NEB IH SCH ×4 (01:32→19:51)
[2017-01-02] MEDS: ALBUTEROL FS 2.5 MG/0.5 ML VIAL.NEB NEB SCH ×4 (01:32→19:51)
[2017-01-02] MEDS: OMEPRAZOLE 20 MG CAPSULE.DR GT SCH (05:19)
[2017-01-02] MEDS: POLYVINYL ALCOHOL 15 ML BOTTLE EACHEYE SCH ×3 (05:19→21:30)
[2017-01-02] MEDS: FIBERSOURCE HN 1,000 ML BOTTLE GT PRN ×2 (06:09→22:40)
[2017-01-02 07:29] VITALS: BP 104/69
[2017-01-02] MEDS: PEPCID GT SCH ×2 (09:08→21:30)
[2017-01-02] MEDS: SERTRALINE HCL 25 MG TABLET GT SCH (09:09)
[2017-01-02] MEDS: CLOTRIMAZOLE 1% 15 GM TUBE TP SCH ×2 (09:10→17:10)
[2017-01-02] MEDS: CHLORHEXIDINE GLUCONATE 15 ML UDC MM SCH ×2 (09:10→17:10)
[2017-01-02] MEDS: HYDROGEN PEROXIDE 480 ML BOTTLE TP SCH ×2 (09:10→21:30)
[2017-01-02] MEDS: MINERAL OIL/PETROLATUM,WHITE 454 GM JAR TP SCH ×2 (09:10→21:30)
[2017-01-02] MEDS: OCUSOFT LID SCRUB TP SCH ×2 (09:10→17:10)
[2017-01-02] MEDS: Z GUARD REMEDY 4 OZ OINT TP SCH ×2 (09:11→21:30)
[2017-01-02] MEDS: ZINC OXIDE 30 GM TUBE TP SCH ×2 (09:11→21:30)
[2017-01-02] MEDS: CLOTRIMAZOLE/BETAMETASONE DIPROPIONATE 15 GM TUBE TP SCH ×2 (09:11→21:30)
[2017-01-02 19:33] VITALS: BP 125/73
[2017-01-02] MEDS: ASCORBIC ACID 500 MG TABLET GT SCH (21:30)
[2017-01-02] MEDS: MULTIVIT, IRON, MIN NO. 8, FA 1 TAB GT SCH (21:30)
[2017-01-02] MEDS: PROSOURCE / PROSTAT (PYXIS) 30 ML UDC GT SCH (21:30)
[2017-01-03] MEDS: VANCOMYCIN HCL 125 MG/2.5 ML ORAL.SUSP GT SCH ×4 (00:28→17:35)
[2017-01-03] MEDS: SUCRALFATE 1 G/10 ML UDC GT SCH ×6 (00:28→21:36)
[2017-01-03] MEDS: ALBUTEROL FS 2.5 MG/0.5 ML VIAL.NEB NEB SCH ×4 (02:26→20:23)
[2017-01-03] MEDS: IPRATROPIUM NEB FS 0.5 MG/2.5 ML AMPUL.NEB IH SCH ×4 (02:26→20:23)
[2017-01-03] MEDS: POLYVINYL ALCOHOL 15 ML BOTTLE EACHEYE SCH ×3 (05:08→21:36)
[2017-01-03] MEDS: OMEPRAZOLE 20 MG CAPSULE.DR GT SCH (05:09)
[2017-01-03 07:32] VITALS: BP 131/85
[2017-01-03 07:39] VITALS: BP 131/85
[2017-01-03] MEDS: OCUSOFT LID SCRUB TP SCH ×2 (08:45→17:00)
[2017-01-03] MEDS: CHLORHEXIDINE GLUCONATE 15 ML UDC MM SCH ×2 (08:45→17:35)
[2017-01-03] MEDS: PEPCID GT SCH ×2 (08:45→21:36)
[2017-01-03] MEDS: CLOTRIMAZOLE/BETAMETASONE DIPROPIONATE 15 GM TUBE TP SCH ×2 (08:45→21:37)
[2017-01-03] MEDS: HYDROGEN PEROXIDE 480 ML BOTTLE TP SCH ×2 (08:45→21:37)
[2017-01-03] MEDS: MINERAL OIL/PETROLATUM,WHITE 454 GM JAR TP SCH ×2 (08:45→21:37)
[2017-01-03] MEDS: CLOTRIMAZOLE 1% 15 GM TUBE TP SCH ×2 (08:45→17:35)
[2017-01-03] MEDS: SERTRALINE HCL 25 MG TABLET GT SCH (08:45)
[2017-01-03] MEDS: ZINC OXIDE 30 GM TUBE TP SCH ×2 (08:45→21:37)
[2017-01-03] MEDS: Z GUARD REMEDY 4 OZ OINT TP SCH ×2 (08:45→21:37)
[2017-01-03] MEDS: FIBERSOURCE HN 1,000 ML BOTTLE GT PRN (12:30)
[2017-01-03 19:39] VITALS: BP 129/77
[2017-01-03] MEDS: PROSOURCE / PROSTAT (PYXIS) 30 ML UDC GT SCH (21:37)
[2017-01-03] MEDS: MULTIVIT, IRON, MIN NO. 8, FA 1 TAB GT SCH (21:37)
[2017-01-03] MEDS: ASCORBIC ACID 500 MG TABLET GT SCH (21:37)
[2017-01-04] MEDS: SUCRALFATE 1 G/10 ML UDC GT SCH ×6 (01:17→21:45)
[2017-01-04] MEDS: FIBERSOURCE HN 1,000 ML BOTTLE GT PRN ×2 (01:17→22:00)
[2017-01-04] MEDS: ALBUTEROL FS 2.5 MG/0.5 ML VIAL.NEB NEB SCH ×4 (02:22→19:20)
[2017-01-04] MEDS: IPRATROPIUM NEB FS 0.5 MG/2.5 ML AMPUL.NEB IH SCH ×4 (02:22→19:20)
[2017-01-04] MEDS: POLYVINYL ALCOHOL 15 ML BOTTLE EACHEYE SCH ×3 (05:00→21:45)
[2017-01-04] MEDS: OMEPRAZOLE 20 MG CAPSULE.DR GT SCH (06:00)
[2017-01-04] MEDS: VANCOMYCIN HCL 125 MG/2.5 ML ORAL.SUSP GT SCH ×4 (06:00→18:09)
[2017-01-04 07:38] VITALS: BP 130/79
[2017-01-04] MEDS: CHLORHEXIDINE GLUCONATE 15 ML UDC MM SCH ×2 (09:00→17:00)
[2017-01-04] MEDS: PEPCID GT SCH ×2 (09:00→21:45)
[2017-01-04] MEDS: ZINC OXIDE 30 GM TUBE TP SCH ×2 (09:00→21:46)
[2017-01-04] MEDS: CLOTRIMAZOLE 1% 15 GM TUBE TP SCH ×2 (09:00→17:00)
[2017-01-04] MEDS: SERTRALINE HCL 25 MG TABLET GT SCH (09:00)
[2017-01-04] MEDS: HYDROGEN PEROXIDE 480 ML BOTTLE TP SCH ×2 (09:00→21:46)
[2017-01-04] MEDS: CLOTRIMAZOLE/BETAMETASONE DIPROPIONATE 15 GM TUBE TP SCH ×2 (09:00→21:46)
[2017-01-04] MEDS: OCUSOFT LID SCRUB TP SCH ×2 (09:00→17:00)
[2017-01-04] MEDS: Z GUARD REMEDY 4 OZ OINT TP SCH ×2 (09:00→21:46)
[2017-01-04] MEDS: MINERAL OIL/PETROLATUM,WHITE 454 GM JAR TP SCH ×2 (09:00→21:45)
--- NOTE | 2017-01-04 09:00 | NUR ---
Seen and examined by Dr. Reese, NNO given.
[2017-01-04] MEDS: MULTIVIT, IRON, MIN NO. 8, FA 1 TAB GT SCH (21:45)
[2017-01-04] MEDS: ASCORBIC ACID 500 MG TABLET GT SCH (21:45)
[2017-01-04] MEDS: PROSOURCE / PROSTAT (PYXIS) 30 ML UDC GT SCH (21:45)
[2017-01-04 22:16] VITALS: BP 118/72
[2017-01-05] MEDS: SUCRALFATE 1 G/10 ML UDC GT SCH ×6 (00:28→20:47)
[2017-01-05] MEDS: VANCOMYCIN HCL 125 MG/2.5 ML ORAL.SUSP GT SCH (00:28)
[2017-01-05] MEDS: ALBUTEROL FS 2.5 MG/0.5 ML VIAL.NEB NEB SCH ×4 (01:16→19:44)
[2017-01-05] MEDS: IPRATROPIUM NEB FS 0.5 MG/2.5 ML AMPUL.NEB IH SCH ×4 (01:16→19:44)
[2017-01-05] MEDS: POLYVINYL ALCOHOL 15 ML BOTTLE EACHEYE SCH ×3 (05:00→20:47)
[2017-01-05] MEDS: OMEPRAZOLE 20 MG CAPSULE.DR GT SCH (06:03)
[2017-01-05 08:06] VITALS: BP 129/68
[2017-01-05] MEDS: CLOTRIMAZOLE 1% 15 GM TUBE TP SCH ×2 (09:50→17:00)
[2017-01-05] MEDS: SERTRALINE HCL 25 MG TABLET GT SCH (09:50)
[2017-01-05] MEDS: MINERAL OIL/PETROLATUM,WHITE 454 GM JAR TP SCH ×2 (09:50→20:50)
[2017-01-05] MEDS: HYDROGEN PEROXIDE 480 ML BOTTLE TP SCH ×2 (09:50→20:50)
[2017-01-05] MEDS: OCUSOFT LID SCRUB TP SCH ×2 (09:50→17:00)
[2017-01-05] MEDS: PEPCID GT SCH ×2 (09:50→20:48)
[2017-01-05] MEDS: CHLORHEXIDINE GLUCONATE 15 ML UDC MM SCH ×2 (09:50→17:00)
[2017-01-05] MEDS: Z GUARD REMEDY 4 OZ OINT TP SCH ×2 (09:51→20:50)
[2017-01-05] MEDS: CLOTRIMAZOLE/BETAMETASONE DIPROPIONATE 15 GM TUBE TP SCH ×2 (09:51→20:50)
[2017-01-05] MEDS: ZINC OXIDE 30 GM TUBE TP SCH ×2 (09:51→20:50)
[2017-01-05 19:57] VITALS: BP 147/72
[2017-01-05] MEDS: PROSOURCE / PROSTAT (PYXIS) 30 ML UDC GT SCH (20:48)
[2017-01-05] MEDS: ASCORBIC ACID 500 MG TABLET GT SCH (20:49)
[2017-01-05] MEDS: MULTIVIT, IRON, MIN NO. 8, FA 1 TAB GT SCH (20:49)
[2017-01-06] MEDS: SUCRALFATE 1 G/10 ML UDC GT SCH ×6 (01:00→20:32)
[2017-01-06] MEDS: IPRATROPIUM NEB FS 0.5 MG/2.5 ML AMPUL.NEB IH SCH ×4 (01:58→19:37)
[2017-01-06] MEDS: ALBUTEROL FS 2.5 MG/0.5 ML VIAL.NEB NEB SCH ×4 (01:58→19:37)
[2017-01-06] MEDS: POLYVINYL ALCOHOL 15 ML BOTTLE EACHEYE SCH ×3 (05:23→20:32)
[2017-01-06] MEDS: OMEPRAZOLE 20 MG CAPSULE.DR GT SCH (05:24)
--- NOTE | 2017-01-06 07:13 | NUR ---
Received male ryan pt on mechanical vent. Pt ryan is secure. Vent is plugged into a red outlet, alarms are set and audible, and BVM is at bedside. Addendum: 01/06/17 at 0715 by KAYLIN GRANADOS RT Amended: Links added.
[2017-01-06 08:02] VITALS: BP 110/70
[2017-01-06] MEDS: SERTRALINE HCL 25 MG TABLET GT SCH (08:44)
[2017-01-06] MEDS: CHLORHEXIDINE GLUCONATE 15 ML UDC MM SCH ×2 (08:44→17:45)
[2017-01-06] MEDS: PEPCID GT SCH ×2 (08:44→20:33)
[2017-01-06] MEDS: HYDROGEN PEROXIDE 480 ML BOTTLE TP SCH ×2 (08:45→20:34)
[2017-01-06] MEDS: Z GUARD REMEDY 4 OZ OINT TP SCH ×2 (08:45→20:34)
[2017-01-06] MEDS: CLOTRIMAZOLE 1% 15 GM TUBE TP SCH ×2 (08:45→17:45)
[2017-01-06] MEDS: OCUSOFT LID SCRUB TP SCH ×2 (08:45→17:45)
[2017-01-06] MEDS: CLOTRIMAZOLE/BETAMETASONE DIPROPIONATE 15 GM TUBE TP SCH ×2 (08:45→20:34)
[2017-01-06] MEDS: ZINC OXIDE 30 GM TUBE TP SCH ×2 (08:45→20:35)
[2017-01-06] MEDS: MINERAL OIL/PETROLATUM,WHITE 454 GM JAR TP SCH ×2 (08:45→20:34)
[2017-01-06] MEDS: FIBERSOURCE HN 1,000 ML BOTTLE GT PRN (18:38)
[2017-01-06 19:58] VITALS: BP 118/68
[2017-01-06] MEDS: MULTIVIT, IRON, MIN NO. 8, FA 1 TAB GT SCH (20:34)
[2017-01-06] MEDS: PROSOURCE / PROSTAT (PYXIS) 30 ML UDC GT SCH (20:34)
[2017-01-06] MEDS: ASCORBIC ACID 500 MG TABLET GT SCH (20:34)
[2017-01-07] MEDS: SUCRALFATE 1 G/10 ML UDC GT SCH ×6 (00:18→20:47)
[2017-01-07] MEDS: ALBUTEROL FS 2.5 MG/0.5 ML VIAL.NEB NEB SCH ×4 (01:52→20:07)
[2017-01-07] MEDS: IPRATROPIUM NEB FS 0.5 MG/2.5 ML AMPUL.NEB IH SCH ×4 (01:52→20:07)
[2017-01-07] MEDS: OMEPRAZOLE 20 MG CAPSULE.DR GT SCH (05:44)
[2017-01-07] MEDS: POLYVINYL ALCOHOL 15 ML BOTTLE EACHEYE SCH ×3 (05:44→20:47)
[2017-01-07 07:54] VITALS: BP 118/73
[2017-01-07] MEDS: SERTRALINE HCL 25 MG TABLET GT SCH (08:51)
[2017-01-07] MEDS: OCUSOFT LID SCRUB TP SCH ×2 (08:51→16:59)
[2017-01-07] MEDS: PEPCID GT SCH ×2 (08:51→20:47)
[2017-01-07] MEDS: CHLORHEXIDINE GLUCONATE 15 ML UDC MM SCH ×2 (08:51→16:58)
[2017-01-07] MEDS: MINERAL OIL/PETROLATUM,WHITE 454 GM JAR TP SCH ×2 (08:51→20:47)
[2017-01-07] MEDS: ZINC OXIDE 30 GM TUBE TP SCH ×2 (08:52→20:47)
[2017-01-07] MEDS: Z GUARD REMEDY 4 OZ OINT TP SCH ×2 (08:52→20:47)
[2017-01-07] MEDS: CLOTRIMAZOLE 1% 15 GM TUBE TP SCH ×2 (08:52→16:59)
[2017-01-07] MEDS: HYDROGEN PEROXIDE 480 ML BOTTLE TP SCH ×2 (08:52→20:47)
[2017-01-07] MEDS: CLOTRIMAZOLE/BETAMETASONE DIPROPIONATE 15 GM TUBE TP SCH ×2 (08:52→20:47)
[2017-01-07] MEDS: FIBERSOURCE HN 1,000 ML BOTTLE GT PRN (12:09)
--- NOTE | 2017-01-07 19:30 | NUR ---
Seen by no new order at this time.
[2017-01-07 19:55] VITALS: BP 101/61
[2017-01-07] MEDS: PROSOURCE / PROSTAT (PYXIS) 30 ML UDC GT SCH (20:47)
[2017-01-07] MEDS: MULTIVIT, IRON, MIN NO. 8, FA 1 TAB GT SCH (20:47)
[2017-01-07] MEDS: ASCORBIC ACID 500 MG TABLET GT SCH (20:47)
[2017-01-08] MEDS: SUCRALFATE 1 G/10 ML UDC GT SCH ×6 (00:42→21:37)
[2017-01-08] MEDS: FIBERSOURCE HN 1,000 ML BOTTLE GT PRN ×2 (00:44→16:11)
[2017-01-08] MEDS: IPRATROPIUM NEB FS 0.5 MG/2.5 ML AMPUL.NEB IH SCH ×4 (00:51→19:40)
[2017-01-08] MEDS: ALBUTEROL FS 2.5 MG/0.5 ML VIAL.NEB NEB SCH ×4 (00:51→19:40)
[2017-01-08] MEDS: POLYVINYL ALCOHOL 15 ML BOTTLE EACHEYE SCH ×3 (05:03→21:37)
[2017-01-08] MEDS: OMEPRAZOLE 20 MG CAPSULE.DR GT SCH (05:04)
--- NOTE | 2017-01-08 06:31 | NUR ---
PT HAD 2X SOFT BM DURING THE NIGHT.
[2017-01-08 07:38] VITALS: BP 120/62
[2017-01-08] MEDS: CLOTRIMAZOLE/BETAMETASONE DIPROPIONATE 15 GM TUBE TP SCH ×2 (09:00→21:38)
[2017-01-08] MEDS: CHLORHEXIDINE GLUCONATE 15 ML UDC MM SCH ×2 (09:00→16:10)
[2017-01-08] MEDS: Z GUARD REMEDY 4 OZ OINT TP SCH ×2 (09:00→21:38)
[2017-01-08] MEDS: OCUSOFT LID SCRUB TP SCH ×2 (09:00→16:10)
[2017-01-08] MEDS: SERTRALINE HCL 25 MG TABLET GT SCH (09:00)
[2017-01-08] MEDS: MINERAL OIL/PETROLATUM,WHITE 454 GM JAR TP SCH ×2 (09:00→21:38)
[2017-01-08] MEDS: ZINC OXIDE 30 GM TUBE TP SCH ×2 (09:00→21:38)
[2017-01-08] MEDS: HYDROGEN PEROXIDE 480 ML BOTTLE TP SCH ×2 (09:00→21:38)
[2017-01-08] MEDS: PEPCID GT SCH ×2 (09:00→21:37)
[2017-01-08] MEDS: CLOTRIMAZOLE 1% 15 GM TUBE TP SCH ×2 (09:00→16:11)
[2017-01-08] MEDS ORDERED: GABAPENTIN 300 MG CAPSULE GT SCH (13:00)
--- NOTE | 2017-01-08 19:15 | NUR ---
Resident on contact isolation for C-diff, no episode of diarrhea, had 2 medium soft bowel movement, good skin care rendered, contact isolation observed before and after care, continue to monitor for any changes.
[2017-01-08 19:54] VITALS: BP 118/72
[2017-01-08] MEDS: MULTIVIT, IRON, MIN NO. 8, FA 1 TAB GT SCH (21:37)
[2017-01-08] MEDS: PROSOURCE / PROSTAT (PYXIS) 30 ML UDC GT SCH (21:37)
[2017-01-08] MEDS: ASCORBIC ACID 500 MG TABLET GT SCH (21:37)
[2017-01-08] MEDS: NEOMY SULF/BACITRAC ZN/POLY 15 GM TUBE TP SCH (21:38)
[2017-01-09] MEDS: IPRATROPIUM NEB FS 0.5 MG/2.5 ML AMPUL.NEB IH SCH ×4 (00:46→19:20)
[2017-01-09] MEDS: ALBUTEROL FS 2.5 MG/0.5 ML VIAL.NEB NEB SCH ×4 (00:46→19:20)
[2017-01-09] MEDS: SUCRALFATE 1 G/10 ML UDC GT SCH ×6 (01:38→21:27)
[2017-01-09] MEDS: POLYVINYL ALCOHOL 15 ML BOTTLE EACHEYE SCH ×3 (05:21→21:26)
[2017-01-09] MEDS: FIBERSOURCE HN 1,000 ML BOTTLE GT PRN (05:26)
[2017-01-09] MEDS: OMEPRAZOLE 20 MG CAPSULE.DR GT SCH (05:26)
--- NOTE | 2017-01-09 06:32 | NUR ---
PT HAD 2X SOFT MEDIUM BM.WILL CONTINUE TO MONITOR.
[2017-01-09 07:45] VITALS: BP 121/81
[2017-01-09] MEDS: ZINC OXIDE 30 GM TUBE TP SCH ×2 (09:00→21:28)
[2017-01-09] MEDS: CHLORHEXIDINE GLUCONATE 15 ML UDC MM SCH ×2 (09:00→17:37)
[2017-01-09] MEDS: HYDROGEN PEROXIDE 480 ML BOTTLE TP SCH ×2 (09:00→21:28)
[2017-01-09] MEDS: SERTRALINE HCL 25 MG TABLET GT SCH (09:00)
[2017-01-09] MEDS: MINERAL OIL/PETROLATUM,WHITE 454 GM JAR TP SCH ×2 (09:00→21:27)
[2017-01-09] MEDS: Z GUARD REMEDY 4 OZ OINT TP SCH ×2 (09:00→21:28)
[2017-01-09] MEDS: OCUSOFT LID SCRUB TP SCH ×2 (09:00→17:38)
[2017-01-09] MEDS: CLOTRIMAZOLE 1% 15 GM TUBE TP SCH ×2 (09:00→17:38)
[2017-01-09] MEDS: NEOMY SULF/BACITRAC ZN/POLY 15 GM TUBE TP SCH ×2 (09:00→21:28)
[2017-01-09] MEDS: PEPCID GT SCH ×2 (09:00→21:27)
[2017-01-09] MEDS: CLOTRIMAZOLE/BETAMETASONE DIPROPIONATE 15 GM TUBE TP SCH ×2 (09:00→21:28)
[2017-01-09 19:41] VITALS: BP 124/71
[2017-01-09] MEDS: PROSOURCE / PROSTAT (PYXIS) 30 ML UDC GT SCH (21:27)
[2017-01-09] MEDS: MULTIVIT, IRON, MIN NO. 8, FA 1 TAB GT SCH (21:27)
[2017-01-09] MEDS: ASCORBIC ACID 500 MG TABLET GT SCH (21:27)
[2017-01-10] MEDS: SUCRALFATE 1 G/10 ML UDC GT SCH ×6 (01:00→21:25)
[2017-01-10] MEDS: IPRATROPIUM NEB FS 0.5 MG/2.5 ML AMPUL.NEB IH SCH ×4 (01:39→19:18)
[2017-01-10] MEDS: ALBUTEROL FS 2.5 MG/0.5 ML VIAL.NEB NEB SCH ×4 (01:39→19:18)
[2017-01-10] MEDS: OMEPRAZOLE 20 MG CAPSULE.DR GT SCH (05:16)
[2017-01-10] MEDS: POLYVINYL ALCOHOL 15 ML BOTTLE EACHEYE SCH ×3 (05:16→21:25)
[2017-01-10 08:06] VITALS: BP 100/65
[2017-01-10] MEDS: NEOMY SULF/BACITRAC ZN/POLY 15 GM TUBE TP SCH ×2 (09:29→21:25)
[2017-01-10] MEDS: SERTRALINE HCL 25 MG TABLET GT SCH (09:29)
[2017-01-10] MEDS: OCUSOFT LID SCRUB TP SCH ×2 (09:29→17:37)
[2017-01-10] MEDS: PEPCID GT SCH ×2 (09:29→21:25)
[2017-01-10] MEDS: CLOTRIMAZOLE 1% 15 GM TUBE TP SCH ×2 (09:29→17:37)
[2017-01-10] MEDS: ZINC OXIDE 30 GM TUBE TP SCH ×2 (09:29→21:26)
[2017-01-10] MEDS: CHLORHEXIDINE GLUCONATE 15 ML UDC MM SCH ×2 (09:29→17:37)
[2017-01-10] MEDS: CLOTRIMAZOLE/BETAMETASONE DIPROPIONATE 15 GM TUBE TP SCH ×2 (09:29→21:25)
[2017-01-10] MEDS: Z GUARD REMEDY 4 OZ OINT TP SCH ×2 (09:29→21:26)
[2017-01-10] MEDS: HYDROGEN PEROXIDE 480 ML BOTTLE TP SCH ×2 (09:29→21:25)
[2017-01-10] MEDS: MINERAL OIL/PETROLATUM,WHITE 454 GM JAR TP SCH ×2 (09:29→21:25)
[2017-01-10] MEDS: FIBERSOURCE HN 1,000 ML BOTTLE GT PRN (17:38)
[2017-01-10 19:49] VITALS: BP 113/62
[2017-01-10] MEDS: MULTIVIT, IRON, MIN NO. 8, FA 1 TAB GT SCH (21:25)
[2017-01-10] MEDS: ASCORBIC ACID 500 MG TABLET GT SCH (21:25)
[2017-01-10] MEDS: PROSOURCE / PROSTAT (PYXIS) 30 ML UDC GT SCH (21:25)
[2017-01-10] MEDS: TEMAZEPAM 7.5 MG CAPSULE GT PRN (23:21)
[2017-01-11] MEDS: ALBUTEROL FS 2.5 MG/0.5 ML VIAL.NEB NEB SCH ×4 (00:43→18:58)
[2017-01-11] MEDS: IPRATROPIUM NEB FS 0.5 MG/2.5 ML AMPUL.NEB IH SCH ×4 (00:43→18:58)
[2017-01-11] MEDS: SUCRALFATE 1 G/10 ML UDC GT SCH ×6 (01:50→21:19)
[2017-01-11] MEDS: OMEPRAZOLE 20 MG CAPSULE.DR GT SCH (05:19)
[2017-01-11] MEDS: POLYVINYL ALCOHOL 15 ML BOTTLE EACHEYE SCH ×3 (05:19→21:19)
[2017-01-11] MEDS: SERTRALINE HCL 25 MG TABLET GT SCH (08:28)
[2017-01-11] MEDS: CLOTRIMAZOLE 1% 15 GM TUBE TP SCH ×2 (08:28→17:30)
[2017-01-11] MEDS: MINERAL OIL/PETROLATUM,WHITE 454 GM JAR TP SCH ×2 (08:28→21:19)
[2017-01-11] MEDS: CHLORHEXIDINE GLUCONATE 15 ML UDC MM SCH ×2 (08:28→17:00)
[2017-01-11] MEDS: HYDROGEN PEROXIDE 480 ML BOTTLE TP SCH ×2 (08:28→21:19)
[2017-01-11] MEDS: CLOTRIMAZOLE/BETAMETASONE DIPROPIONATE 15 GM TUBE TP SCH ×4 (08:28→21:20)
[2017-01-11] MEDS: OCUSOFT LID SCRUB TP SCH ×2 (08:28→17:00)
[2017-01-11] MEDS: PEPCID GT SCH ×2 (08:28→21:19)
[2017-01-11] MEDS: Z GUARD REMEDY 4 OZ OINT TP SCH ×2 (08:29→21:20)
[2017-01-11] MEDS: NEOMY SULF/BACITRAC ZN/POLY 15 GM TUBE TP SCH ×2 (08:29→21:20)
[2017-01-11] MEDS: ZINC OXIDE 30 GM TUBE TP SCH ×2 (08:29→21:20)
[2017-01-11] MEDS: FIBERSOURCE HN 1,000 ML BOTTLE GT PRN (11:00)
--- NOTE | 2017-01-11 18:50 | NUR ---
Resident is still on isolation for C-diff. Patient had two bowel movements of liquid consistency. Noted right breast redness and umbilical region redness. Treatment started with lortisone cream.
[2017-01-11 19:24] VITALS: BP 106/56
[2017-01-11] MEDS: MULTIVIT, IRON, MIN NO. 8, FA 1 TAB GT SCH (21:19)
[2017-01-11] MEDS: ASCORBIC ACID 500 MG TABLET GT SCH (21:19)
[2017-01-11] MEDS: PROSOURCE / PROSTAT (PYXIS) 30 ML UDC GT SCH (21:19)
[2017-01-12] MEDS: SUCRALFATE 1 G/10 ML UDC GT SCH ×6 (01:00→20:54)
[2017-01-12] MEDS: IPRATROPIUM NEB FS 0.5 MG/2.5 ML AMPUL.NEB IH SCH ×4 (01:51→19:03)
[2017-01-12] MEDS: ALBUTEROL FS 2.5 MG/0.5 ML VIAL.NEB NEB SCH ×4 (01:51→19:03)
[2017-01-12] MEDS: POLYVINYL ALCOHOL 15 ML BOTTLE EACHEYE SCH ×3 (04:08→20:54)
[2017-01-12] MEDS: FIBERSOURCE HN 1,000 ML BOTTLE GT PRN (04:26)
[2017-01-12] MEDS: OMEPRAZOLE 20 MG CAPSULE.DR GT SCH (06:21)
[2017-01-12 08:15] VITALS: BP 153/72
--- NOTE | 2017-01-12 08:30 | NUR ---
GONZALO spoke to the resident's sister Elizabeth Lynn. Elizabeth stated that she would be sending a care package to the resident and that it should be arriving sometime this week. She expressed sadness at resident being on a ventilator and was able to express her feelings with SW. She stated she is excited about resident receiving his gift (a talking petrona bear). SW will inform art coordinator to look out for the package.
[2017-01-12] MEDS: CLOTRIMAZOLE 1% 15 GM TUBE TP SCH ×2 (08:57→17:46)
[2017-01-12] MEDS: OCUSOFT LID SCRUB TP SCH ×2 (08:57→17:46)
[2017-01-12] MEDS: CHLORHEXIDINE GLUCONATE 15 ML UDC MM SCH ×2 (08:57→17:46)
[2017-01-12] MEDS: SERTRALINE HCL 25 MG TABLET GT SCH (08:57)
[2017-01-12] MEDS: HYDROGEN PEROXIDE 480 ML BOTTLE TP SCH ×2 (08:57→20:55)
[2017-01-12] MEDS: CLOTRIMAZOLE/BETAMETASONE DIPROPIONATE 15 GM TUBE TP SCH ×6 (08:57→20:55)
[2017-01-12] MEDS: MINERAL OIL/PETROLATUM,WHITE 454 GM JAR TP SCH ×2 (08:57→20:55)
[2017-01-12] MEDS: NEOMY SULF/BACITRAC ZN/POLY 15 GM TUBE TP SCH ×2 (08:58→20:55)
[2017-01-12] MEDS: Z GUARD REMEDY 4 OZ OINT TP SCH ×2 (08:58→20:55)
[2017-01-12] MEDS: ZINC OXIDE 30 GM TUBE TP SCH ×2 (08:58→20:55)
[2017-01-12] MEDS: PEPCID GT SCH ×2 (09:00→20:55)
[2017-01-12 19:51] VITALS: BP 118/78
[2017-01-12] MEDS: MULTIVIT, IRON, MIN NO. 8, FA 1 TAB GT SCH (20:55)
[2017-01-12] MEDS: PROSOURCE / PROSTAT (PYXIS) 30 ML UDC GT SCH (20:55)
[2017-01-12] MEDS: ASCORBIC ACID 500 MG TABLET GT SCH (20:55)
[2017-01-13] MEDS: FIBERSOURCE HN 1,000 ML BOTTLE GT PRN (00:11)
[2017-01-13] MEDS: SUCRALFATE 1 G/10 ML UDC GT SCH ×6 (00:11→21:41)
[2017-01-13] MEDS: IPRATROPIUM NEB FS 0.5 MG/2.5 ML AMPUL.NEB IH SCH ×4 (00:45→19:36)
[2017-01-13] MEDS: ALBUTEROL FS 2.5 MG/0.5 ML VIAL.NEB NEB SCH ×4 (00:45→19:36)
--- NOTE | 2017-01-13 05:00 | NUR ---
RN NOTES HAD 1 MOD TO LARGE BM, BROWN, FORMED. PERICARE RENDERED.
[2017-01-13] MEDS: OMEPRAZOLE 20 MG CAPSULE.DR GT SCH (05:34)
[2017-01-13] MEDS: POLYVINYL ALCOHOL 15 ML BOTTLE EACHEYE SCH ×3 (05:34→21:41)
--- NOTE | 2017-01-13 07:36 | NUR ---
RT PT RECEIVED TRACHED ON THE VENT WITH NOTED SETTINGS. PT IS AWAKE AND ALERT. VENT ALARMS ARE SET AND AUDIBLE WITH BVM BY BEDSIDE. BULLET SWAGING MACHINE OPERATOR CUFF PRESSURE NOTED. VENT IS PLUGGED INTO RED OUTLET. NO RESPIRATORY DISTRESS NOTED AT THIS TIME, WILL CONTINUE TO MONITOR. Addendum: 01/13/17 at 1835 by MADAN BROWN RT Amended: Links added.
--- NOTE | 2017-01-13 07:54 | NUR ---
Late entry for 01/12/17 Pt had no episode of diarrhea during this shift.
[2017-01-13 07:58] VITALS: BP 112/70
--- NOTE | 2017-01-13 08:24 | NUR ---
Pt on contact isolation for C diff. Education has been provided to staff and pt's family.
[2017-01-13] MEDS: MINERAL OIL/PETROLATUM,WHITE 454 GM JAR TP SCH ×2 (09:26→21:42)
[2017-01-13] MEDS: CLOTRIMAZOLE 1% 15 GM TUBE TP SCH ×2 (09:26→17:32)
[2017-01-13] MEDS: HYDROGEN PEROXIDE 480 ML BOTTLE TP SCH ×2 (09:26→21:42)
[2017-01-13] MEDS: OCUSOFT LID SCRUB TP SCH ×2 (09:26→17:32)
[2017-01-13] MEDS: CLOTRIMAZOLE/BETAMETASONE DIPROPIONATE 15 GM TUBE TP SCH ×6 (09:26→21:42)
[2017-01-13] MEDS: CHLORHEXIDINE GLUCONATE 15 ML UDC MM SCH ×2 (09:26→17:32)
[2017-01-13] MEDS: PEPCID GT SCH ×2 (09:26→21:41)
[2017-01-13] MEDS: SERTRALINE HCL 25 MG TABLET GT SCH (09:26)
[2017-01-13] MEDS: ZINC OXIDE 30 GM TUBE TP SCH ×2 (09:27→21:42)
[2017-01-13] MEDS: NEOMY SULF/BACITRAC ZN/POLY 15 GM TUBE TP SCH ×2 (09:27→21:42)
[2017-01-13] MEDS: Z GUARD REMEDY 4 OZ OINT TP SCH ×2 (09:27→21:42)
--- NOTE | 2017-01-13 10:36 | NUR ---
Informed accounts payable payroll coordinator Camila that resident's sister Elizabeth sent a package for the resident. She stated that she will look out for it and will give it to the resident when it arrives.
--- NOTE | 2017-01-13 19:20 | NUR ---
No bowel movement during this shift. Spoke with Infection Control nurse Rosario. She said contact isolation may be DC'd.
[2017-01-13 19:40] VITALS: BP 116/70
[2017-01-13] MEDS: PROSOURCE / PROSTAT (PYXIS) 30 ML UDC GT SCH (21:41)
[2017-01-13] MEDS: ASCORBIC ACID 500 MG TABLET GT SCH (21:41)
[2017-01-13] MEDS: MULTIVIT, IRON, MIN NO. 8, FA 1 TAB GT SCH (21:41)
[2017-01-14] MEDS: SUCRALFATE 1 G/10 ML UDC GT SCH ×6 (01:00→21:03)
[2017-01-14] MEDS: IPRATROPIUM NEB FS 0.5 MG/2.5 ML AMPUL.NEB IH SCH ×4 (02:07→19:12)
[2017-01-14] MEDS: ALBUTEROL FS 2.5 MG/0.5 ML VIAL.NEB NEB SCH ×4 (02:07→19:12)
[2017-01-14] MEDS: POLYVINYL ALCOHOL 15 ML BOTTLE EACHEYE SCH ×3 (05:00→21:03)
[2017-01-14] MEDS: OMEPRAZOLE 20 MG CAPSULE.DR GT SCH (06:03)
--- NOTE | 2017-01-14 07:41 | NUR ---
No bowel movement during the shift. Entire Room terminally cleaned with Clorax. Discontinued isolation as recommended by infection control.
[2017-01-14 08:04] VITALS: BP 122/77
[2017-01-14] MEDS: CHLORHEXIDINE GLUCONATE 15 ML UDC MM SCH ×2 (09:00→17:25)
[2017-01-14] MEDS: HYDROGEN PEROXIDE 480 ML BOTTLE TP SCH ×2 (09:00→21:03)
[2017-01-14] MEDS: OCUSOFT LID SCRUB TP SCH ×2 (09:00→17:25)
[2017-01-14] MEDS: PEPCID GT SCH ×2 (09:26→21:03)
[2017-01-14] MEDS: SERTRALINE HCL 25 MG TABLET GT SCH (09:26)
[2017-01-14] MEDS: CLOTRIMAZOLE/BETAMETASONE DIPROPIONATE 15 GM TUBE TP SCH ×6 (09:28→21:04)
[2017-01-14] MEDS: MINERAL OIL/PETROLATUM,WHITE 454 GM JAR TP SCH ×2 (09:28→21:03)
[2017-01-14] MEDS: CLOTRIMAZOLE 1% 15 GM TUBE TP SCH ×2 (09:28→17:25)
[2017-01-14] MEDS: NEOMY SULF/BACITRAC ZN/POLY 15 GM TUBE TP SCH ×2 (09:29→21:04)
[2017-01-14] MEDS: Z GUARD REMEDY 4 OZ OINT TP SCH ×2 (09:29→21:04)
[2017-01-14] MEDS: ZINC OXIDE 30 GM TUBE TP SCH ×2 (09:29→21:04)
[2017-01-14] MEDS: FIBERSOURCE HN 1,000 ML BOTTLE GT PRN (13:46)
[2017-01-14 20:11] VITALS: BP 114/70
[2017-01-14] MEDS: MULTIVIT, IRON, MIN NO. 8, FA 1 TAB GT SCH (21:03)
[2017-01-14] MEDS: PROSOURCE / PROSTAT (PYXIS) 30 ML UDC GT SCH (21:03)
[2017-01-14] MEDS: ASCORBIC ACID 500 MG TABLET GT SCH (21:03)
[2017-01-15] MEDS: SUCRALFATE 1 G/10 ML UDC GT SCH ×6 (00:17→21:18)
[2017-01-15] MEDS: IPRATROPIUM NEB FS 0.5 MG/2.5 ML AMPUL.NEB IH SCH ×4 (01:24→20:06)
[2017-01-15] MEDS: ALBUTEROL FS 2.5 MG/0.5 ML VIAL.NEB NEB SCH ×4 (01:24→20:06)
[2017-01-15] MEDS: FIBERSOURCE HN 1,000 ML BOTTLE GT PRN ×2 (04:04→21:19)
[2017-01-15] MEDS: OMEPRAZOLE 20 MG CAPSULE.DR GT SCH (05:20)
[2017-01-15] MEDS: POLYVINYL ALCOHOL 15 ML BOTTLE EACHEYE SCH ×3 (05:20→21:18)
[2017-01-15 07:30] VITALS: BP 106/66
[2017-01-15] MEDS: CLOTRIMAZOLE/BETAMETASONE DIPROPIONATE 15 GM TUBE TP SCH ×6 (09:40→21:18)
[2017-01-15] MEDS: CLOTRIMAZOLE 1% 15 GM TUBE TP SCH ×2 (09:40→17:00)
[2017-01-15] MEDS: OCUSOFT LID SCRUB TP SCH ×2 (09:40→17:00)
[2017-01-15] MEDS: MINERAL OIL/PETROLATUM,WHITE 454 GM JAR TP SCH ×2 (09:40→21:18)
[2017-01-15] MEDS: CHLORHEXIDINE GLUCONATE 15 ML UDC MM SCH ×2 (09:40→17:00)
[2017-01-15] MEDS: SERTRALINE HCL 25 MG TABLET GT SCH (09:40)
[2017-01-15] MEDS: HYDROGEN PEROXIDE 480 ML BOTTLE TP SCH ×2 (09:40→21:18)
[2017-01-15] MEDS: PEPCID GT SCH ×2 (09:40→21:18)
[2017-01-15] MEDS: NEOMY SULF/BACITRAC ZN/POLY 15 GM TUBE TP SCH (09:41)
[2017-01-15] MEDS: ZINC OXIDE 30 GM TUBE TP SCH ×2 (09:41→21:19)
[2017-01-15] MEDS: Z GUARD REMEDY 4 OZ OINT TP SCH ×2 (09:41→21:18)
--- NOTE | 2017-01-15 15:03 | NUR ---
Asked by charge nurse if she can contact Dr. Del Toro to come and see the resident for medication evaluation. Sw sent message to Dr. Del Toro. Will follow up.
--- NOTE | 2017-01-15 15:13 | NUR ---
Notified both Olivia Olivo and Elizabeth Lynn that pt is off contact isolation for C diff.
[2017-01-15 19:52] VITALS: BP 128/56
[2017-01-15] MEDS: MULTIVIT, IRON, MIN NO. 8, FA 1 TAB GT SCH (21:18)
[2017-01-15] MEDS: ASCORBIC ACID 500 MG TABLET GT SCH (21:18)
[2017-01-15] MEDS: PROSOURCE / PROSTAT (PYXIS) 30 ML UDC GT SCH (21:18)
[2017-01-15] MEDS: TEMAZEPAM 7.5 MG CAPSULE GT PRN (21:19)
[2017-01-15] MEDS: SIMETHICONE SUSP 40 MG/0.6 ML BOTTLE GT PRN (21:19)
[2017-01-16] MEDS: SUCRALFATE 1 G/10 ML UDC GT SCH ×6 (00:18→20:26)
[2017-01-16] MEDS: ALBUTEROL FS 2.5 MG/0.5 ML VIAL.NEB NEB SCH ×4 (01:10→19:59)
[2017-01-16] MEDS: IPRATROPIUM NEB FS 0.5 MG/2.5 ML AMPUL.NEB IH SCH ×4 (01:10→19:59)
[2017-01-16] MEDS: POLYVINYL ALCOHOL 15 ML BOTTLE EACHEYE SCH ×3 (05:49→20:26)
[2017-01-16] MEDS: OMEPRAZOLE 20 MG CAPSULE.DR GT SCH (05:49)
[2017-01-16 08:21] VITALS: BP_SYST 100; BP_SYST 111; BP_DIAS 56; BP_DIAS 60
[2017-01-16] MEDS: CHLORHEXIDINE GLUCONATE 15 ML UDC MM SCH ×2 (09:25→17:00)
[2017-01-16] MEDS: HYDROGEN PEROXIDE 480 ML BOTTLE TP SCH ×2 (09:25→20:27)
[2017-01-16] MEDS: MINERAL OIL/PETROLATUM,WHITE 454 GM JAR TP SCH ×2 (09:25→20:26)
[2017-01-16] MEDS: CLOTRIMAZOLE 1% 15 GM TUBE TP SCH ×2 (09:25→17:00)
[2017-01-16] MEDS: OCUSOFT LID SCRUB TP SCH ×2 (09:25→17:00)
[2017-01-16] MEDS: CLOTRIMAZOLE/BETAMETASONE DIPROPIONATE 15 GM TUBE TP SCH ×6 (09:25→20:27)
[2017-01-16] MEDS: PEPCID GT SCH ×2 (09:25→20:26)
[2017-01-16] MEDS: SERTRALINE HCL 25 MG TABLET GT SCH (09:25)
[2017-01-16] MEDS: Z GUARD REMEDY 4 OZ OINT TP SCH ×2 (09:26→20:28)
[2017-01-16] MEDS: ZINC OXIDE 30 GM TUBE TP SCH ×2 (09:26→20:28)
[2017-01-16] MEDS: FIBERSOURCE HN 1,000 ML BOTTLE GT PRN (13:44)
--- NOTE | 2017-01-16 18:40 | NUR ---
Seen and examined by Isidra Ayala NP, NNO given at this time.
[2017-01-16 20:00] VITALS: BP 106/67
[2017-01-16] MEDS: ASCORBIC ACID 500 MG TABLET GT SCH (20:26)
[2017-01-16] MEDS: PROSOURCE / PROSTAT (PYXIS) 30 ML UDC GT SCH (20:26)
[2017-01-16] MEDS: MULTIVIT, IRON, MIN NO. 8, FA 1 TAB GT SCH (20:26)
[2017-01-16] MEDS: TEMAZEPAM 7.5 MG CAPSULE GT PRN (20:36)
[2017-01-17] MEDS: SUCRALFATE 1 G/10 ML UDC GT SCH ×6 (00:24→21:06)
[2017-01-17] MEDS: IPRATROPIUM NEB FS 0.5 MG/2.5 ML AMPUL.NEB IH SCH ×4 (00:48→19:35)
[2017-01-17] MEDS: ALBUTEROL FS 2.5 MG/0.5 ML VIAL.NEB NEB SCH ×4 (00:48→19:35)
[2017-01-17] MEDS: FIBERSOURCE HN 1,000 ML BOTTLE GT PRN ×2 (05:23→19:10)
[2017-01-17] MEDS: SIMETHICONE SUSP 40 MG/0.6 ML BOTTLE GT PRN (05:23)
[2017-01-17] MEDS: OMEPRAZOLE 20 MG CAPSULE.DR GT SCH (05:23)
[2017-01-17] MEDS: POLYVINYL ALCOHOL 15 ML BOTTLE EACHEYE SCH ×3 (05:23→21:06)
[2017-01-17 07:35] VITALS: BP 114/70
[2017-01-17] MEDS: PEPCID GT SCH ×2 (09:15→21:06)
[2017-01-17] MEDS: CLOTRIMAZOLE 1% 15 GM TUBE TP SCH ×2 (09:15→16:52)
[2017-01-17] MEDS: HYDROGEN PEROXIDE 480 ML BOTTLE TP SCH ×2 (09:15→21:06)
[2017-01-17] MEDS: CLOTRIMAZOLE/BETAMETASONE DIPROPIONATE 15 GM TUBE TP SCH ×5 (09:15→21:06)
[2017-01-17] MEDS: MINERAL OIL/PETROLATUM,WHITE 454 GM JAR TP SCH ×2 (09:15→21:06)
[2017-01-17] MEDS: CHLORHEXIDINE GLUCONATE 15 ML UDC MM SCH ×2 (09:15→16:52)
[2017-01-17] MEDS: SERTRALINE HCL 25 MG TABLET GT SCH (09:15)
[2017-01-17] MEDS: OCUSOFT LID SCRUB TP SCH ×2 (09:15→16:52)
[2017-01-17] MEDS: Z GUARD REMEDY 4 OZ OINT TP SCH ×2 (09:16→21:07)
[2017-01-17 19:45] VITALS: BP 113/67
[2017-01-17] MEDS: TEMAZEPAM 7.5 MG CAPSULE GT PRN (21:00)
[2017-01-17] MEDS: PROSOURCE / PROSTAT (PYXIS) 30 ML UDC GT SCH (21:06)
[2017-01-17] MEDS: MULTIVIT, IRON, MIN NO. 8, FA 1 TAB GT SCH (21:06)
[2017-01-17] MEDS: ASCORBIC ACID 500 MG TABLET GT SCH (21:06)
[2017-01-18] MEDS: SUCRALFATE 1 G/10 ML UDC GT SCH ×6 (00:36→20:25)
[2017-01-18] MEDS: IPRATROPIUM NEB FS 0.5 MG/2.5 ML AMPUL.NEB IH SCH ×4 (01:42→19:20)
[2017-01-18] MEDS: ALBUTEROL FS 2.5 MG/0.5 ML VIAL.NEB NEB SCH ×4 (01:42→19:20)
[2017-01-18] MEDS: OMEPRAZOLE 20 MG CAPSULE.DR GT SCH (05:16)
[2017-01-18] MEDS: POLYVINYL ALCOHOL 15 ML BOTTLE EACHEYE SCH ×3 (05:16→20:25)
[2017-01-18] MEDS: SIMETHICONE SUSP 40 MG/0.6 ML BOTTLE GT PRN (05:16)
[2017-01-18 07:47] VITALS: BP 115/60
[2017-01-18] MEDS: SERTRALINE HCL 25 MG TABLET GT SCH (08:46)
[2017-01-18] MEDS: PEPCID GT SCH ×2 (08:46→20:26)
[2017-01-18] MEDS: CHLORHEXIDINE GLUCONATE 15 ML UDC MM SCH ×2 (08:47→17:51)
[2017-01-18] MEDS: OCUSOFT LID SCRUB TP SCH ×2 (08:47→17:52)
[2017-01-18] MEDS: MINERAL OIL/PETROLATUM,WHITE 454 GM JAR TP SCH ×2 (08:47→20:27)
[2017-01-18] MEDS: HYDROGEN PEROXIDE 480 ML BOTTLE TP SCH ×2 (08:47→20:27)
[2017-01-18] MEDS: CLOTRIMAZOLE/BETAMETASONE DIPROPIONATE 15 GM TUBE TP SCH ×6 (09:00→20:27)
[2017-01-18] MEDS: CLOTRIMAZOLE 1% 15 GM TUBE TP SCH ×2 (09:00→17:51)
[2017-01-18] MEDS: Z GUARD REMEDY 4 OZ OINT TP SCH ×2 (09:00→20:27)
[2017-01-18] MEDS: MAGNESIUM HYDROXIDE 30 ML UDC GT PRN (18:13)
[2017-01-18] MEDS: FIBERSOURCE HN 1,000 ML BOTTLE GT PRN (18:13)
[2017-01-18 19:45] VITALS: BP 109/65
[2017-01-18] MEDS: PROSOURCE / PROSTAT (PYXIS) 30 ML UDC GT SCH (20:26)
[2017-01-18] MEDS: MULTIVIT, IRON, MIN NO. 8, FA 1 TAB GT SCH (20:27)
[2017-01-18] MEDS: ASCORBIC ACID 500 MG TABLET GT SCH (20:27)
[2017-01-19] MEDS: ALBUTEROL FS 2.5 MG/0.5 ML VIAL.NEB NEB SCH ×4 (00:43→19:38)
[2017-01-19] MEDS: IPRATROPIUM NEB FS 0.5 MG/2.5 ML AMPUL.NEB IH SCH ×4 (00:43→19:38)
[2017-01-19] MEDS: SUCRALFATE 1 G/10 ML UDC GT SCH ×6 (01:43→20:52)
[2017-01-19] MEDS: POLYVINYL ALCOHOL 15 ML BOTTLE EACHEYE SCH ×3 (05:14→20:52)
[2017-01-19] MEDS: OMEPRAZOLE 20 MG CAPSULE.DR GT SCH (05:14)
[2017-01-19] MEDS: FIBERSOURCE HN 1,000 ML BOTTLE GT PRN ×2 (06:50→21:22)
[2017-01-19 08:18] VITALS: BP 138/60
[2017-01-19] MEDS: PEPCID GT SCH ×2 (08:43→20:53)
[2017-01-19] MEDS: CHLORHEXIDINE GLUCONATE 15 ML UDC MM SCH ×2 (08:44→17:16)
[2017-01-19] MEDS: SERTRALINE HCL 25 MG TABLET GT SCH (08:44)
[2017-01-19] MEDS: MINERAL OIL/PETROLATUM,WHITE 454 GM JAR TP SCH ×2 (09:00→20:53)
[2017-01-19] MEDS: OCUSOFT LID SCRUB TP SCH ×2 (09:00→17:17)
[2017-01-19] MEDS: CLOTRIMAZOLE/BETAMETASONE DIPROPIONATE 15 GM TUBE TP SCH ×6 (09:00→20:53)
[2017-01-19] MEDS: Z GUARD REMEDY 4 OZ OINT TP SCH ×2 (09:00→20:53)
[2017-01-19] MEDS: CLOTRIMAZOLE 1% 15 GM TUBE TP SCH ×2 (09:00→17:17)
[2017-01-19] MEDS: HYDROGEN PEROXIDE 480 ML BOTTLE TP SCH ×2 (09:00→20:53)
[2017-01-19 20:11] VITALS: BP 114/70
[2017-01-19] MEDS: ASCORBIC ACID 500 MG TABLET GT SCH (20:53)
[2017-01-19] MEDS: MULTIVIT, IRON, MIN NO. 8, FA 1 TAB GT SCH (20:53)
[2017-01-19] MEDS: PROSOURCE / PROSTAT (PYXIS) 30 ML UDC GT SCH (20:53)
[2017-01-20] MEDS: SUCRALFATE 1 G/10 ML UDC GT SCH ×6 (01:15→21:09)
[2017-01-20] MEDS: IPRATROPIUM NEB FS 0.5 MG/2.5 ML AMPUL.NEB IH SCH ×4 (01:31→19:08)
[2017-01-20] MEDS: ALBUTEROL FS 2.5 MG/0.5 ML VIAL.NEB NEB SCH ×4 (01:31→19:08)
[2017-01-20] MEDS: POLYVINYL ALCOHOL 15 ML BOTTLE EACHEYE SCH ×3 (05:09→21:09)
[2017-01-20] MEDS: OMEPRAZOLE 20 MG CAPSULE.DR GT SCH (05:10)
[2017-01-20 07:39] VITALS: BP 122/77
[2017-01-20] MEDS: CHLORHEXIDINE GLUCONATE 15 ML UDC MM SCH ×2 (09:22→17:11)
[2017-01-20] MEDS: PEPCID GT SCH ×2 (09:22→21:10)
[2017-01-20] MEDS: SERTRALINE HCL 25 MG TABLET GT SCH (09:22)
[2017-01-20] MEDS: MINERAL OIL/PETROLATUM,WHITE 454 GM JAR TP SCH ×2 (09:22→21:10)
[2017-01-20] MEDS: HYDROGEN PEROXIDE 480 ML BOTTLE TP SCH ×2 (09:23→21:10)
[2017-01-20] MEDS: Z GUARD REMEDY 4 OZ OINT TP SCH ×2 (09:23→21:11)
[2017-01-20] MEDS: OCUSOFT LID SCRUB TP SCH ×2 (09:23→17:11)
[2017-01-20] MEDS: CLOTRIMAZOLE 1% 15 GM TUBE TP SCH ×2 (09:23→17:11)
[2017-01-20] MEDS: CLOTRIMAZOLE/BETAMETASONE DIPROPIONATE 15 GM TUBE TP SCH ×6 (09:23→21:10)
[2017-01-20 19:35] VITALS: BP 127/87
[2017-01-20] MEDS: MULTIVIT, IRON, MIN NO. 8, FA 1 TAB GT SCH (21:10)
[2017-01-20] MEDS: PROSOURCE / PROSTAT (PYXIS) 30 ML UDC GT SCH (21:10)
[2017-01-20] MEDS: ASCORBIC ACID 500 MG TABLET GT SCH (21:10)
[2017-01-21] MEDS: SUCRALFATE 1 G/10 ML UDC GT SCH ×6 (01:35→21:25)
[2017-01-21] MEDS: ALBUTEROL FS 2.5 MG/0.5 ML VIAL.NEB NEB SCH ×4 (01:44→19:36)
[2017-01-21] MEDS: IPRATROPIUM NEB FS 0.5 MG/2.5 ML AMPUL.NEB IH SCH ×4 (01:44→19:36)
[2017-01-21] MEDS: OMEPRAZOLE 20 MG CAPSULE.DR GT SCH (05:08)
[2017-01-21] MEDS: POLYVINYL ALCOHOL 15 ML BOTTLE EACHEYE SCH ×3 (05:08→21:25)
[2017-01-21 07:50] VITALS: BP 109/83
[2017-01-21] MEDS: SERTRALINE HCL 25 MG TABLET GT SCH (09:08)
[2017-01-21] MEDS: CHLORHEXIDINE GLUCONATE 15 ML UDC MM SCH ×2 (09:08→17:19)
[2017-01-21] MEDS: PEPCID GT SCH ×2 (09:08→21:25)
[2017-01-21] MEDS: OCUSOFT LID SCRUB TP SCH ×2 (09:09→17:19)
[2017-01-21] MEDS: CLOTRIMAZOLE/BETAMETASONE DIPROPIONATE 15 GM TUBE TP SCH ×6 (10:15→21:29)
[2017-01-21] MEDS: CLOTRIMAZOLE 1% 15 GM TUBE TP SCH ×2 (10:15→17:00)
[2017-01-21] MEDS: MINERAL OIL/PETROLATUM,WHITE 454 GM JAR TP SCH ×2 (10:15→21:29)
[2017-01-21] MEDS: Z GUARD REMEDY 4 OZ OINT TP SCH ×2 (10:15→21:29)
[2017-01-21] MEDS: HYDROGEN PEROXIDE 480 ML BOTTLE TP SCH ×2 (11:30→21:29)
--- NOTE | 2017-01-21 12:45 | NUR ---
Received a telephone order from Dr. Del Toro to discontinue Zoloft but to continue monitor his behavior. According to MD if drug reduction fails, he will put patient back to Zoloft as previously ordered. Order carried out & monitor for changes in behavior. Resident up lelo-chair taken to activity room, connected to the vent with current setting well tolerated. Noted to be in good spirit, dancing to the tune of the music.
[2017-01-21 20:36] VITALS: BP 105/75
[2017-01-21] MEDS: PROSOURCE / PROSTAT (PYXIS) 30 ML UDC GT SCH (21:25)
[2017-01-21] MEDS: ASCORBIC ACID 500 MG TABLET GT SCH (21:29)
[2017-01-21] MEDS: MULTIVIT, IRON, MIN NO. 8, FA 1 TAB GT SCH (21:29)
[2017-01-21] MEDS: FIBERSOURCE HN 1,000 ML BOTTLE GT PRN (21:44)
[2017-01-22] MEDS: SUCRALFATE 1 G/10 ML UDC GT SCH ×6 (01:02→21:06)
[2017-01-22] MEDS: ALBUTEROL FS 2.5 MG/0.5 ML VIAL.NEB NEB SCH ×4 (02:23→20:22)
[2017-01-22] MEDS: IPRATROPIUM NEB FS 0.5 MG/2.5 ML AMPUL.NEB IH SCH ×4 (02:23→20:22)
[2017-01-22] MEDS: POLYVINYL ALCOHOL 15 ML BOTTLE EACHEYE SCH ×3 (05:17→21:06)
[2017-01-22] MEDS: OMEPRAZOLE 20 MG CAPSULE.DR GT SCH (05:17)
[2017-01-22 07:47] VITALS: BP 115/66
[2017-01-22] MEDS: MINERAL OIL/PETROLATUM,WHITE 454 GM JAR TP SCH ×2 (08:58→21:06)
[2017-01-22] MEDS: OCUSOFT LID SCRUB TP SCH ×2 (08:58→17:08)
[2017-01-22] MEDS: PEPCID GT SCH ×2 (08:58→21:06)
[2017-01-22] MEDS: CHLORHEXIDINE GLUCONATE 15 ML UDC MM SCH ×2 (08:58→17:08)
[2017-01-22] MEDS: CLOTRIMAZOLE/BETAMETASONE DIPROPIONATE 15 GM TUBE TP SCH ×6 (08:59→21:06)
[2017-01-22] MEDS: Z GUARD REMEDY 4 OZ OINT TP SCH ×2 (08:59→21:06)
[2017-01-22] MEDS: HYDROGEN PEROXIDE 480 ML BOTTLE TP SCH ×2 (08:59→21:06)
[2017-01-22] MEDS: CLOTRIMAZOLE 1% 15 GM TUBE TP SCH ×2 (08:59→17:08)
[2017-01-22] MEDS: FIBERSOURCE HN 1,000 ML BOTTLE GT PRN (12:09)
--- NOTE | 2017-01-22 18:00 | NUR ---
Pt has redness on the left side of the face. Charge nurse informed pt about it and pt showed that he was scratching the area. Seen by RELIABILITY TECHNICIANS Isidra Ayala. No new order. Notified pt's daughter Olivia and she expressed appreciation for call.
--- NOTE | 2017-01-22 18:36 | NUR ---
No episodes of depression noted m/b crying spells or sad facial expressions. Pt responsive to conversation with staff, participating with care.
[2017-01-22 19:58] VITALS: BP 125/76
[2017-01-22] MEDS: ASCORBIC ACID 500 MG TABLET GT SCH (21:06)
[2017-01-22] MEDS: PROSOURCE / PROSTAT (PYXIS) 30 ML UDC GT SCH (21:06)
[2017-01-22] MEDS: MULTIVIT, IRON, MIN NO. 8, FA 1 TAB GT SCH (21:06)
[2017-01-22] MEDS: MAGNESIUM HYDROXIDE 30 ML UDC GT PRN (21:07)
[2017-01-22] MEDS: SIMETHICONE SUSP 40 MG/0.6 ML BOTTLE GT PRN (21:07)
[2017-01-23] MEDS: SUCRALFATE 1 G/10 ML UDC GT SCH ×6 (00:10→20:14)
[2017-01-23] MEDS: FIBERSOURCE HN 1,000 ML BOTTLE GT PRN ×2 (01:00→20:16)
[2017-01-23] MEDS: IPRATROPIUM NEB FS 0.5 MG/2.5 ML AMPUL.NEB IH SCH ×4 (01:11→20:10)
[2017-01-23] MEDS: ALBUTEROL FS 2.5 MG/0.5 ML VIAL.NEB NEB SCH ×4 (01:11→20:10)
[2017-01-23] MEDS: POLYVINYL ALCOHOL 15 ML BOTTLE EACHEYE SCH ×3 (05:12→20:14)
[2017-01-23] MEDS: OMEPRAZOLE 20 MG CAPSULE.DR GT SCH (05:12)
--- NOTE | 2017-01-23 06:21 | NUR ---
No episodes of depression noted during shift, m/b no sad facial expressions noted, no cry, pt remains responsive to staff, with some episodes of refusal of care such as suctioning and oral care, educated pt of risks of refusals and benefits of such cares, pt then cooperates and allowed staff to render care and txs. All safety and comfort measures rendered, call light within pt's reach.No significant change in clinical condition noted during shift.
[2017-01-23 07:42] VITALS: BP 128/74
[2017-01-23] MEDS: MINERAL OIL/PETROLATUM,WHITE 454 GM JAR TP SCH ×2 (09:37→20:15)
[2017-01-23] MEDS: OCUSOFT LID SCRUB TP SCH ×2 (09:37→16:26)
[2017-01-23] MEDS: CLOTRIMAZOLE/BETAMETASONE DIPROPIONATE 15 GM TUBE TP SCH ×6 (09:38→20:15)
[2017-01-23] MEDS: Z GUARD REMEDY 4 OZ OINT TP SCH ×2 (09:38→20:15)
[2017-01-23] MEDS: HYDROGEN PEROXIDE 480 ML BOTTLE TP SCH ×2 (09:38→20:15)
[2017-01-23] MEDS: CLOTRIMAZOLE 1% 15 GM TUBE TP SCH ×2 (09:38→16:26)
[2017-01-23] MEDS: CHLORHEXIDINE GLUCONATE 15 ML UDC MM SCH ×2 (09:40→16:26)
[2017-01-23] MEDS: PEPCID GT SCH ×2 (09:40→20:15)
--- NOTE | 2017-01-23 13:52 | NUR ---
IDT meeting held, reviewed current and new medications, treatments and labs. Family unable to attend. NNO given at this time.
--- NOTE | 2017-01-23 18:58 | NUR ---
Pt has no episode of depression noted, mb crying spells and sad facial expression, refused oral care and suctioning, explained risk and benefits of oral care and suctioning, pt becomes angry and combative.
[2017-01-23 19:50] VITALS: BP 142/79
[2017-01-23] MEDS: ASCORBIC ACID 500 MG TABLET GT SCH (20:15)
[2017-01-23] MEDS: PROSOURCE / PROSTAT (PYXIS) 30 ML UDC GT SCH (20:15)
[2017-01-23] MEDS: MULTIVIT, IRON, MIN NO. 8, FA 1 TAB GT SCH (20:15)
[2017-01-23] MEDS: SIMETHICONE SUSP 40 MG/0.6 ML BOTTLE GT PRN (20:16)
[2017-01-23] MEDS: TEMAZEPAM 7.5 MG CAPSULE GT PRN (21:07)
[2017-01-24] MEDS: SUCRALFATE 1 G/10 ML UDC GT SCH ×6 (00:10→20:37)
[2017-01-24] MEDS: ALBUTEROL FS 2.5 MG/0.5 ML VIAL.NEB NEB SCH ×4 (00:56→19:17)
[2017-01-24] MEDS: IPRATROPIUM NEB FS 0.5 MG/2.5 ML AMPUL.NEB IH SCH ×4 (00:56→19:17)
[2017-01-24] MEDS: POLYVINYL ALCOHOL 15 ML BOTTLE EACHEYE SCH ×3 (05:09→20:37)
[2017-01-24] MEDS: OMEPRAZOLE 20 MG CAPSULE.DR GT SCH (05:09)
--- NOTE | 2017-01-24 07:18 | NUR ---
NO S/SX OF DEPRESSION NOTED M/B CRYING SPILLS AND SAD FACIAL EXPRESSIONS. PRN RESTORIL GIVEN LAST NIGHT FOR INSOMNIA EFFECTIVE, WITH NO A/R NOTED , SLEPT 7 HRS , PROVIDED PT WITH CALM AND QUIET ENVIRONMENT. COMPLETED AND TOLERATED AM CARE, SAFETY MEASURES NOTED. CALL LIGHT WITHIN PT'S REACH.
[2017-01-24 07:34] VITALS: BP 112/70
[2017-01-24] MEDS: CLOTRIMAZOLE/BETAMETASONE DIPROPIONATE 15 GM TUBE TP SCH ×6 (09:30→20:38)
[2017-01-24] MEDS: CLOTRIMAZOLE 1% 15 GM TUBE TP SCH ×2 (09:30→17:39)
[2017-01-24] MEDS: PEPCID GT SCH ×2 (09:30→20:38)
[2017-01-24] MEDS: HYDROGEN PEROXIDE 480 ML BOTTLE TP SCH ×2 (09:30→20:38)
[2017-01-24] MEDS: CHLORHEXIDINE GLUCONATE 15 ML UDC MM SCH ×2 (09:30→17:39)
[2017-01-24] MEDS: MINERAL OIL/PETROLATUM,WHITE 454 GM JAR TP SCH ×2 (09:30→20:38)
[2017-01-24] MEDS: Z GUARD REMEDY 4 OZ OINT TP SCH ×2 (09:30→20:38)
[2017-01-24] MEDS: OCUSOFT LID SCRUB TP SCH ×2 (09:30→17:39)
[2017-01-24] MEDS: FIBERSOURCE HN 1,000 ML BOTTLE GT PRN (12:36)
--- NOTE | 2017-01-24 18:44 | NUR ---
No episodes of depression m/b sad facial expressions or crying spells noted. Refused oral care, risks and benefits explained but still refused. Pt responsive to staff, noted to be dancing and smiling earlier this shift. Pt watching TV most of the day. All needs met and attended.
[2017-01-24 19:53] VITALS: BP 121/79
[2017-01-24] MEDS: ASCORBIC ACID 500 MG TABLET GT SCH (20:38)
[2017-01-24] MEDS: PROSOURCE / PROSTAT (PYXIS) 30 ML UDC GT SCH (20:38)
[2017-01-24] MEDS: MULTIVIT, IRON, MIN NO. 8, FA 1 TAB GT SCH (20:38)
[2017-01-25] MEDS: FIBERSOURCE HN 1,000 ML BOTTLE GT PRN (00:04)
[2017-01-25] MEDS: SUCRALFATE 1 G/10 ML UDC GT SCH ×6 (00:04→21:08)
[2017-01-25] MEDS: ALBUTEROL FS 2.5 MG/0.5 ML VIAL.NEB NEB SCH ×4 (02:18→19:16)
[2017-01-25] MEDS: IPRATROPIUM NEB FS 0.5 MG/2.5 ML AMPUL.NEB IH SCH ×4 (02:18→19:16)
[2017-01-25] MEDS: POLYVINYL ALCOHOL 15 ML BOTTLE EACHEYE SCH ×3 (05:11→21:08)
[2017-01-25] MEDS: OMEPRAZOLE 20 MG CAPSULE.DR GT SCH (05:11)
[2017-01-25] MEDS: CLOTRIMAZOLE 1% 15 GM TUBE TP SCH ×2 (08:37→16:37)
[2017-01-25] MEDS: CHLORHEXIDINE GLUCONATE 15 ML UDC MM SCH ×2 (08:37→16:37)
[2017-01-25] MEDS: MINERAL OIL/PETROLATUM,WHITE 454 GM JAR TP SCH ×2 (08:37→21:09)
[2017-01-25] MEDS: HYDROGEN PEROXIDE 480 ML BOTTLE TP SCH ×2 (08:37→21:09)
[2017-01-25] MEDS: CLOTRIMAZOLE/BETAMETASONE DIPROPIONATE 15 GM TUBE TP SCH ×6 (08:37→21:09)
[2017-01-25] MEDS: OCUSOFT LID SCRUB TP SCH ×2 (08:37→16:37)
[2017-01-25] MEDS: PEPCID GT SCH ×2 (08:37→21:08)
[2017-01-25] MEDS: Z GUARD REMEDY 4 OZ OINT TP SCH ×2 (08:38→21:09)
[2017-01-25 19:58] VITALS: BP 105/66
[2017-01-25] MEDS: PROSOURCE / PROSTAT (PYXIS) 30 ML UDC GT SCH (21:08)
[2017-01-25] MEDS: ASCORBIC ACID 500 MG TABLET GT SCH (21:09)
[2017-01-25] MEDS: MULTIVIT, IRON, MIN NO. 8, FA 1 TAB GT SCH (21:09)
[2017-01-26] MEDS: ALBUTEROL FS 2.5 MG/0.5 ML VIAL.NEB NEB SCH ×4 (01:20→19:37)
[2017-01-26] MEDS: IPRATROPIUM NEB FS 0.5 MG/2.5 ML AMPUL.NEB IH SCH ×4 (01:20→19:37)
[2017-01-26] MEDS: FIBERSOURCE HN 1,000 ML BOTTLE GT PRN (01:58)
[2017-01-26] MEDS: SUCRALFATE 1 G/10 ML UDC GT SCH ×6 (01:58→21:33)
[2017-01-26] MEDS: POLYVINYL ALCOHOL 15 ML BOTTLE EACHEYE SCH ×3 (05:28→21:33)
[2017-01-26] MEDS: OMEPRAZOLE 20 MG CAPSULE.DR GT SCH (05:28)
[2017-01-26 08:01] VITALS: BP 108/73
[2017-01-26] MEDS: PEPCID GT SCH ×2 (08:59→21:33)
[2017-01-26] MEDS: CLOTRIMAZOLE 1% 15 GM TUBE TP SCH ×2 (09:00→17:31)
[2017-01-26] MEDS: HYDROGEN PEROXIDE 480 ML BOTTLE TP SCH ×2 (09:00→21:34)
[2017-01-26] MEDS: OCUSOFT LID SCRUB TP SCH ×2 (09:00→17:31)
[2017-01-26] MEDS: CHLORHEXIDINE GLUCONATE 15 ML UDC MM SCH ×2 (09:00→17:31)
[2017-01-26] MEDS: Z GUARD REMEDY 4 OZ OINT TP SCH ×2 (09:00→21:34)
[2017-01-26] MEDS: CLOTRIMAZOLE/BETAMETASONE DIPROPIONATE 15 GM TUBE TP SCH ×6 (09:00→21:34)
[2017-01-26] MEDS: MINERAL OIL/PETROLATUM,WHITE 454 GM JAR TP SCH ×2 (09:01→21:34)
--- NOTE | 2017-01-26 19:00 | NUR ---
Pt had no episode of tearfulness or verbalization of sadness during this shift.
[2017-01-26 20:03] VITALS: BP 113/59
[2017-01-26] MEDS: MULTIVIT, IRON, MIN NO. 8, FA 1 TAB GT SCH (21:33)
[2017-01-26] MEDS: ASCORBIC ACID 500 MG TABLET GT SCH (21:33)
[2017-01-26] MEDS: PROSOURCE / PROSTAT (PYXIS) 30 ML UDC GT SCH (21:33)
[2017-01-27] MEDS: SUCRALFATE 1 G/10 ML UDC GT SCH ×6 (00:25→20:50)
[2017-01-27] MEDS: IPRATROPIUM NEB FS 0.5 MG/2.5 ML AMPUL.NEB IH SCH ×4 (00:43→19:57)
[2017-01-27] MEDS: ALBUTEROL FS 2.5 MG/0.5 ML VIAL.NEB NEB SCH ×4 (00:43→19:57)
[2017-01-27] MEDS: OMEPRAZOLE 20 MG CAPSULE.DR GT SCH (05:23)
[2017-01-27] MEDS: POLYVINYL ALCOHOL 15 ML BOTTLE EACHEYE SCH ×3 (05:23→20:50)
[2017-01-27 07:47] VITALS: BP 133/92
[2017-01-27] MEDS: HYDROGEN PEROXIDE 480 ML BOTTLE TP SCH ×2 (08:45→20:51)
[2017-01-27] MEDS: MINERAL OIL/PETROLATUM,WHITE 454 GM JAR TP SCH ×2 (08:45→20:51)
[2017-01-27] MEDS: PEPCID GT SCH ×2 (08:45→20:50)
[2017-01-27] MEDS: OCUSOFT LID SCRUB TP SCH ×2 (08:45→17:23)
[2017-01-27] MEDS: Z GUARD REMEDY 4 OZ OINT TP SCH ×2 (08:45→20:51)
[2017-01-27] MEDS: CLOTRIMAZOLE/BETAMETASONE DIPROPIONATE 15 GM TUBE TP SCH ×2 (08:45→20:51)
[2017-01-27] MEDS: CHLORHEXIDINE GLUCONATE 15 ML UDC MM SCH ×2 (08:45→17:23)
[2017-01-27] MEDS: CLOTRIMAZOLE 1% 15 GM TUBE TP SCH ×2 (08:45→17:23)
--- NOTE | 2017-01-27 18:21 | NUR ---
MOOD MONITORING Pt had no episode of depression during this shift, no tearfulness or verbalization of sadness. Pt was watching tv and intermittently sleeping.
[2017-01-27 20:15] VITALS: BP 100/64
[2017-01-27] MEDS: MULTIVIT, IRON, MIN NO. 8, FA 1 TAB GT SCH (20:50)
[2017-01-27] MEDS: ASCORBIC ACID 500 MG TABLET GT SCH (20:50)
[2017-01-27] MEDS: PROSOURCE / PROSTAT (PYXIS) 30 ML UDC GT SCH (20:50)
[2017-01-28] MEDS: SUCRALFATE 1 G/10 ML UDC GT SCH ×6 (00:04→20:43)
[2017-01-28] MEDS: IPRATROPIUM NEB FS 0.5 MG/2.5 ML AMPUL.NEB IH SCH ×4 (02:04→19:21)
[2017-01-28] MEDS: ALBUTEROL FS 2.5 MG/0.5 ML VIAL.NEB NEB SCH ×4 (02:04→19:21)
[2017-01-28] MEDS: OMEPRAZOLE 20 MG CAPSULE.DR GT SCH (05:28)
[2017-01-28] MEDS: POLYVINYL ALCOHOL 15 ML BOTTLE EACHEYE SCH ×3 (05:28→20:43)
[2017-01-28 07:52] VITALS: BP 132/77
[2017-01-28] MEDS: CHLORHEXIDINE GLUCONATE 15 ML UDC MM SCH ×2 (09:30→17:00)
[2017-01-28] MEDS: OCUSOFT LID SCRUB TP SCH ×2 (09:30→17:00)
[2017-01-28] MEDS: MINERAL OIL/PETROLATUM,WHITE 454 GM JAR TP SCH ×2 (09:30→20:43)
[2017-01-28] MEDS: PEPCID GT SCH ×2 (09:30→20:43)
[2017-01-28] MEDS: HYDROGEN PEROXIDE 480 ML BOTTLE TP SCH ×2 (09:31→20:43)
[2017-01-28] MEDS: CLOTRIMAZOLE 1% 15 GM TUBE TP SCH ×2 (09:31→17:00)
[2017-01-28] MEDS: Z GUARD REMEDY 4 OZ OINT TP SCH ×2 (09:31→20:43)
[2017-01-28] MEDS: CLOTRIMAZOLE/BETAMETASONE DIPROPIONATE 15 GM TUBE TP SCH ×2 (09:31→20:43)
[2017-01-28] MEDS: FIBERSOURCE HN 1,000 ML BOTTLE GT PRN (14:25)
[2017-01-28] MEDS: MULTIVIT, IRON, MIN NO. 8, FA 1 TAB GT SCH (20:43)
[2017-01-28] MEDS: ASCORBIC ACID 500 MG TABLET GT SCH (20:43)
[2017-01-28] MEDS: PROSOURCE / PROSTAT (PYXIS) 30 ML UDC GT SCH (20:43)
[2017-01-28 22:25] VITALS: BP 112/60
[2017-01-29] MEDS: SUCRALFATE 1 G/10 ML UDC GT SCH ×6 (00:56→20:58)
[2017-01-29] MEDS: IPRATROPIUM NEB FS 0.5 MG/2.5 ML AMPUL.NEB IH SCH ×4 (01:17→20:13)
[2017-01-29] MEDS: ALBUTEROL FS 2.5 MG/0.5 ML VIAL.NEB NEB SCH ×4 (01:17→20:13)
[2017-01-29] MEDS: OMEPRAZOLE 20 MG CAPSULE.DR GT SCH (05:15)
[2017-01-29] MEDS: POLYVINYL ALCOHOL 15 ML BOTTLE EACHEYE SCH ×3 (05:15→20:58)
[2017-01-29] MEDS: FIBERSOURCE HN 1,000 ML BOTTLE GT PRN ×2 (05:20→21:03)
[2017-01-29 07:34] VITALS: BP 105/64
[2017-01-29] MEDS: PEPCID GT SCH ×2 (08:35→20:58)
[2017-01-29] MEDS: CHLORHEXIDINE GLUCONATE 15 ML UDC MM SCH ×2 (08:35→17:47)
[2017-01-29] MEDS: OCUSOFT LID SCRUB TP SCH ×2 (08:35→17:47)
[2017-01-29] MEDS: MINERAL OIL/PETROLATUM,WHITE 454 GM JAR TP SCH ×2 (08:35→20:58)
[2017-01-29] MEDS: Z GUARD REMEDY 4 OZ OINT TP SCH ×2 (08:36→20:58)
[2017-01-29] MEDS: CLOTRIMAZOLE/BETAMETASONE DIPROPIONATE 15 GM TUBE TP SCH ×2 (08:36→20:58)
[2017-01-29] MEDS: CLOTRIMAZOLE 1% 15 GM TUBE TP SCH ×2 (08:36→17:47)
[2017-01-29] MEDS: HYDROGEN PEROXIDE 480 ML BOTTLE TP SCH ×2 (08:36→20:58)
--- NOTE | 2017-01-29 15:00 | NUR ---
Received order from Dr. Del Toro to give Restoril 7.5 mg via GT at bedtime PRN for 14 more days then re-evaluate if pt still needs it or if it needs to be discontinued. Notified pt's daughter Olivia and she expressed appreciation.
--- NOTE | 2017-01-29 18:54 | NUR ---
MOOD MONITORING Pt had no episode of tearfulness or verbalization of sadness this shift. Pt occasionally refuses care, especially suctioning.
[2017-01-29 19:55] VITALS: BP 103/68
[2017-01-29] MEDS: MULTIVIT, IRON, MIN NO. 8, FA 1 TAB GT SCH (20:58)
[2017-01-29] MEDS: PROSOURCE / PROSTAT (PYXIS) 30 ML UDC GT SCH (20:58)
[2017-01-29] MEDS: ASCORBIC ACID 500 MG TABLET GT SCH (20:58)
[2017-01-30] MEDS: SUCRALFATE 1 G/10 ML UDC GT SCH ×6 (01:16→20:49)
[2017-01-30] MEDS: ALBUTEROL FS 2.5 MG/0.5 ML VIAL.NEB NEB SCH ×4 (01:57→20:12)
[2017-01-30] MEDS: IPRATROPIUM NEB FS 0.5 MG/2.5 ML AMPUL.NEB IH SCH ×4 (01:57→20:12)
[2017-01-30] MEDS: OMEPRAZOLE 20 MG CAPSULE.DR GT SCH (05:35)
[2017-01-30] MEDS: POLYVINYL ALCOHOL 15 ML BOTTLE EACHEYE SCH ×3 (05:35→20:49)
[2017-01-30 07:29] VITALS: BP 112/69
[2017-01-30] MEDS: HYDROGEN PEROXIDE 480 ML BOTTLE TP SCH ×2 (09:19→20:49)
[2017-01-30] MEDS: OCUSOFT LID SCRUB TP SCH ×2 (09:19→17:28)
[2017-01-30] MEDS: CLOTRIMAZOLE 1% 15 GM TUBE TP SCH ×2 (09:19→17:28)
[2017-01-30] MEDS: PEPCID GT SCH ×2 (09:19→20:49)
[2017-01-30] MEDS: CHLORHEXIDINE GLUCONATE 15 ML UDC MM SCH ×2 (09:19→17:28)
[2017-01-30] MEDS: CLOTRIMAZOLE/BETAMETASONE DIPROPIONATE 15 GM TUBE TP SCH ×2 (09:19→20:49)
[2017-01-30] MEDS: Z GUARD REMEDY 4 OZ OINT TP SCH ×2 (09:19→20:49)
[2017-01-30] MEDS: MINERAL OIL/PETROLATUM,WHITE 454 GM JAR TP SCH ×2 (09:19→20:49)
--- NOTE | 2017-01-30 09:58 | NUR ---
Informed resident that dentist will be coming on Thursday to see him. He stated that this was okay. Informed dtr Olivia Olivo.
--- NOTE | 2017-01-30 10:39 | NUR ---
Olivia dtamanda, spoke to social sciences professor. She stated that she has not received any SSI money for him and will call the social security office to see what is happening. She stated that she would try to drop by on Thursday.
[2017-01-30] MEDS: MULTIVIT, IRON, MIN NO. 8, FA 1 TAB GT SCH (20:49)
[2017-01-30] MEDS: ASCORBIC ACID 500 MG TABLET GT SCH (20:49)
[2017-01-30] MEDS: PROSOURCE / PROSTAT (PYXIS) 30 ML UDC GT SCH (20:49)
[2017-01-30] MEDS: FIBERSOURCE HN 1,000 ML BOTTLE GT PRN (20:50)
[2017-01-30 21:36] VITALS: BP 127/88
[2017-01-31] MEDS: ALBUTEROL FS 2.5 MG/0.5 ML VIAL.NEB NEB SCH ×4 (01:11→19:30)
[2017-01-31] MEDS: IPRATROPIUM NEB FS 0.5 MG/2.5 ML AMPUL.NEB IH SCH ×4 (01:11→19:30)
[2017-01-31] MEDS: SUCRALFATE 1 G/10 ML UDC GT SCH ×6 (01:30→20:45)
[2017-01-31] MEDS: OMEPRAZOLE 20 MG CAPSULE.DR GT SCH (05:21)
[2017-01-31] MEDS: POLYVINYL ALCOHOL 15 ML BOTTLE EACHEYE SCH ×3 (05:21→20:45)
[2017-01-31 07:22] VITALS: BP 125/44
[2017-01-31] MEDS: CHLORHEXIDINE GLUCONATE 15 ML UDC MM SCH ×2 (08:59→17:32)
[2017-01-31] MEDS: PEPCID GT SCH ×2 (08:59→20:45)
[2017-01-31] MEDS: Z GUARD REMEDY 4 OZ OINT TP SCH ×2 (08:59→20:53)
[2017-01-31] MEDS: CLOTRIMAZOLE/BETAMETASONE DIPROPIONATE 15 GM TUBE TP SCH ×2 (08:59→20:53)
[2017-01-31] MEDS: OCUSOFT LID SCRUB TP SCH ×2 (08:59→17:32)
[2017-01-31] MEDS: CLOTRIMAZOLE 1% 15 GM TUBE TP SCH ×2 (08:59→17:32)
[2017-01-31] MEDS: HYDROGEN PEROXIDE 480 ML BOTTLE TP SCH ×2 (08:59→20:53)
[2017-01-31] MEDS: MINERAL OIL/PETROLATUM,WHITE 454 GM JAR TP SCH ×2 (08:59→20:53)
[2017-01-31] MEDS ORDERED: TUBERCULIN,PURIF.PROT.DERIV. 5 TU/0.1 ML VIAL ID SCH (09:00)
[2017-01-31 19:44] VITALS: BP 106/68
[2017-01-31] MEDS: ASCORBIC ACID 500 MG TABLET GT SCH (20:45)
[2017-01-31] MEDS: PROSOURCE / PROSTAT (PYXIS) 30 ML UDC GT SCH (20:45)
[2017-01-31] MEDS: MULTIVIT, IRON, MIN NO. 8, FA 1 TAB GT SCH (20:45)
[2017-02-01] MEDS: SUCRALFATE 1 G/10 ML UDC GT SCH ×6 (00:22→21:08)
[2017-02-01] MEDS: ALBUTEROL FS 2.5 MG/0.5 ML VIAL.NEB NEB SCH ×4 (02:26→19:30)
[2017-02-01] MEDS: IPRATROPIUM NEB FS 0.5 MG/2.5 ML AMPUL.NEB IH SCH ×4 (02:26→19:30)
[2017-02-01] MEDS: FIBERSOURCE HN 1,000 ML BOTTLE GT PRN (04:35)
[2017-02-01] MEDS: POLYVINYL ALCOHOL 15 ML BOTTLE EACHEYE SCH ×3 (05:05→21:08)
[2017-02-01] MEDS: OMEPRAZOLE 20 MG CAPSULE.DR GT SCH (05:06)
[2017-02-01 07:37] VITALS: BP 101/67
[2017-02-01] MEDS: OCUSOFT LID SCRUB TP SCH ×2 (08:45→16:38)
[2017-02-01] MEDS: CLOTRIMAZOLE 1% 15 GM TUBE TP SCH (08:45)
[2017-02-01] MEDS: Z GUARD REMEDY 4 OZ OINT TP SCH ×2 (08:45→21:08)
[2017-02-01] MEDS: PEPCID GT SCH ×2 (08:45→21:08)
[2017-02-01] MEDS: HYDROGEN PEROXIDE 480 ML BOTTLE TP SCH ×2 (08:45→21:08)
[2017-02-01] MEDS: MINERAL OIL/PETROLATUM,WHITE 454 GM JAR TP SCH ×2 (08:45→21:08)
[2017-02-01] MEDS: Z GUARD REMEDY 2 OZ OINT TP SCH ×2 (08:45→21:08)
[2017-02-01] MEDS: CHLORHEXIDINE GLUCONATE 15 ML UDC MM SCH ×2 (08:45→16:38)
[2017-02-01 19:45] VITALS: BP 102/70
[2017-02-01] MEDS: ASCORBIC ACID 500 MG TABLET GT SCH (21:08)
[2017-02-01] MEDS: MULTIVIT, IRON, MIN NO. 8, FA 1 TAB GT SCH (21:08)
[2017-02-01] MEDS: PROSOURCE / PROSTAT (PYXIS) 30 ML UDC GT SCH (21:08)
[2017-02-02] MEDS: SUCRALFATE 1 G/10 ML UDC GT SCH ×6 (00:38→21:00)
[2017-02-02] MEDS: IPRATROPIUM NEB FS 0.5 MG/2.5 ML AMPUL.NEB IH SCH ×4 (01:30→19:30)
[2017-02-02] MEDS: ALBUTEROL FS 2.5 MG/0.5 ML VIAL.NEB NEB SCH ×4 (01:30→19:30)
[2017-02-02] MEDS: POLYVINYL ALCOHOL 15 ML BOTTLE EACHEYE SCH ×3 (05:24→22:29)
[2017-02-02] MEDS: OMEPRAZOLE 20 MG CAPSULE.DR GT SCH (05:24)
[2017-02-02] MEDS: FIBERSOURCE HN 1,000 ML BOTTLE GT PRN (05:24)
[2017-02-02 08:21] VITALS: BP 112/55
[2017-02-02] MEDS: HYDROGEN PEROXIDE 480 ML BOTTLE TP SCH ×2 (08:58→21:00)
[2017-02-02] MEDS: Z GUARD REMEDY 2 OZ OINT TP SCH ×2 (08:58→21:00)
[2017-02-02] MEDS: CHLORHEXIDINE GLUCONATE 15 ML UDC MM SCH ×2 (08:58→17:51)
[2017-02-02] MEDS: Z GUARD REMEDY 4 OZ OINT TP SCH ×2 (08:58→21:00)
[2017-02-02] MEDS: OCUSOFT LID SCRUB TP SCH ×2 (08:58→17:51)
[2017-02-02] MEDS: MINERAL OIL/PETROLATUM,WHITE 454 GM JAR TP SCH ×2 (08:58→21:00)
[2017-02-02] MEDS: PEPCID GT SCH ×2 (08:58→21:00)
--- NOTE | 2017-02-02 11:24 | NUR ---
Per dentist, resident was not in his room and will return to see the resident at a later time. Informed dtr Olivia.
--- NOTE | 2017-02-02 15:30 | NUR ---
SW visited with the resident. Resident denied feeling sad or depressed stated that he was feeling okay by shaking his head up and down. Resident was happy to see the vp digital marketing social media and crm and vp digital marketing social media and crm kept the resident company for some time.
[2017-02-02] MEDS: PROSOURCE / PROSTAT (PYXIS) 30 ML UDC GT SCH (21:00)
[2017-02-02] MEDS: ASCORBIC ACID 500 MG TABLET GT SCH (21:00)
[2017-02-02] MEDS: MULTIVIT, IRON, MIN NO. 8, FA 1 TAB GT SCH (22:33)
[2017-02-03] MEDS: SUCRALFATE 1 G/10 ML UDC GT SCH ×6 (01:29→20:57)
[2017-02-03] MEDS: ALBUTEROL FS 2.5 MG/0.5 ML VIAL.NEB NEB SCH ×4 (02:25→19:58)
[2017-02-03] MEDS: IPRATROPIUM NEB FS 0.5 MG/2.5 ML AMPUL.NEB IH SCH ×4 (02:25→19:58)
[2017-02-03] MEDS: POLYVINYL ALCOHOL 15 ML BOTTLE EACHEYE SCH ×3 (05:24→20:56)
[2017-02-03] MEDS: FIBERSOURCE HN 1,000 ML BOTTLE GT PRN (05:26)
[2017-02-03] MEDS: OMEPRAZOLE 20 MG CAPSULE.DR GT SCH (05:26)
[2017-02-03 07:56] VITALS: BP 101/67
[2017-02-03] MEDS: OCUSOFT LID SCRUB TP SCH ×2 (09:03→16:54)
[2017-02-03] MEDS: Z GUARD REMEDY 2 OZ OINT TP SCH ×2 (09:03→21:00)
[2017-02-03] MEDS: HYDROGEN PEROXIDE 480 ML BOTTLE TP SCH ×2 (09:03→21:00)
[2017-02-03] MEDS: MINERAL OIL/PETROLATUM,WHITE 454 GM JAR TP SCH ×2 (09:03→20:59)
[2017-02-03] MEDS: CHLORHEXIDINE GLUCONATE 15 ML UDC MM SCH ×2 (09:03→16:54)
[2017-02-03] MEDS: PEPCID GT SCH ×2 (09:03→20:58)
[2017-02-03] MEDS: Z GUARD REMEDY 4 OZ OINT TP SCH ×2 (09:03→21:00)
[2017-02-03 20:40] VITALS: BP 120/90
[2017-02-03] MEDS: MULTIVIT, IRON, MIN NO. 8, FA 1 TAB GT SCH (20:58)
[2017-02-03] MEDS: PROSOURCE / PROSTAT (PYXIS) 30 ML UDC GT SCH (20:58)
[2017-02-03] MEDS: ASCORBIC ACID 500 MG TABLET GT SCH (20:59)
[2017-02-04] MEDS: ALBUTEROL FS 2.5 MG/0.5 ML VIAL.NEB NEB SCH ×4 (00:49→19:33)
[2017-02-04] MEDS: IPRATROPIUM NEB FS 0.5 MG/2.5 ML AMPUL.NEB IH SCH ×4 (00:49→19:33)
[2017-02-04] MEDS: SUCRALFATE 1 G/10 ML UDC GT SCH ×6 (01:27→21:59)
[2017-02-04] MEDS: POLYVINYL ALCOHOL 15 ML BOTTLE EACHEYE SCH ×3 (04:24→21:59)
[2017-02-04] MEDS: OMEPRAZOLE 20 MG CAPSULE.DR GT SCH (06:05)
[2017-02-04] MEDS: FIBERSOURCE HN 1,000 ML BOTTLE GT PRN ×2 (06:11→17:54)
[2017-02-04 07:40] VITALS: BP 97/60
[2017-02-04] MEDS: PEPCID GT SCH ×2 (09:43→21:59)
[2017-02-04] MEDS: OCUSOFT LID SCRUB TP SCH ×2 (09:43→17:54)
[2017-02-04] MEDS: CHLORHEXIDINE GLUCONATE 15 ML UDC MM SCH ×2 (09:43→17:54)
[2017-02-04] MEDS: MINERAL OIL/PETROLATUM,WHITE 454 GM JAR TP SCH ×2 (09:43→21:59)
[2017-02-04] MEDS: HYDROGEN PEROXIDE 480 ML BOTTLE TP SCH ×2 (12:20→21:59)
[2017-02-04] MEDS: Z GUARD REMEDY 2 OZ OINT TP SCH ×2 (12:20→22:00)
[2017-02-04] MEDS: Z GUARD REMEDY 4 OZ OINT TP SCH ×2 (12:20→21:55)
[2017-02-04 20:33] VITALS: BP 126/73
[2017-02-04] MEDS: PROSOURCE / PROSTAT (PYXIS) 30 ML UDC GT SCH (21:59)
[2017-02-04] MEDS: MULTIVIT, IRON, MIN NO. 8, FA 1 TAB GT SCH (21:59)
[2017-02-04] MEDS: ASCORBIC ACID 500 MG TABLET GT SCH (21:59)
[2017-02-05] MEDS: SUCRALFATE 1 G/10 ML UDC GT SCH ×6 (00:27→20:47)
[2017-02-05] MEDS: IPRATROPIUM NEB FS 0.5 MG/2.5 ML AMPUL.NEB IH SCH ×4 (02:14→19:48)
[2017-02-05] MEDS: ALBUTEROL FS 2.5 MG/0.5 ML VIAL.NEB NEB SCH ×4 (02:14→19:48)
[2017-02-05] MEDS: POLYVINYL ALCOHOL 15 ML BOTTLE EACHEYE SCH ×3 (05:11→20:47)
[2017-02-05] MEDS: OMEPRAZOLE 20 MG CAPSULE.DR GT SCH (05:11)
[2017-02-05] MEDS: CHLORHEXIDINE GLUCONATE 15 ML UDC MM SCH ×2 (09:00→17:00)
[2017-02-05] MEDS: Z GUARD REMEDY 4 OZ OINT TP SCH ×2 (09:00→20:48)
[2017-02-05] MEDS: PEPCID GT SCH ×2 (09:00→20:47)
[2017-02-05] MEDS: Z GUARD REMEDY 2 OZ OINT TP SCH ×2 (09:00→20:48)
[2017-02-05] MEDS: MINERAL OIL/PETROLATUM,WHITE 454 GM JAR TP SCH ×2 (09:00→20:48)
[2017-02-05] MEDS: OCUSOFT LID SCRUB TP SCH ×2 (09:00→17:00)
[2017-02-05] MEDS: ZINC OXIDE 30 GM TUBE TP SCH ×2 (09:00→20:48)
[2017-02-05] MEDS: HYDROGEN PEROXIDE 480 ML BOTTLE TP SCH ×2 (09:00→20:48)
[2017-02-05 09:19] VITALS: BP 128/71
[2017-02-05 19:33] VITALS: BP 117/73
[2017-02-05] MEDS: PROSOURCE / PROSTAT (PYXIS) 30 ML UDC GT SCH (20:47)
[2017-02-05] MEDS: ASCORBIC ACID 500 MG TABLET GT SCH (20:48)
[2017-02-05] MEDS: MULTIVIT, IRON, MIN NO. 8, FA 1 TAB GT SCH (20:48)
[2017-02-06] MEDS: SUCRALFATE 1 G/10 ML UDC GT SCH ×6 (00:20→20:30)
[2017-02-06] MEDS: ALBUTEROL FS 2.5 MG/0.5 ML VIAL.NEB NEB SCH ×4 (00:38→19:08)
[2017-02-06] MEDS: IPRATROPIUM NEB FS 0.5 MG/2.5 ML AMPUL.NEB IH SCH ×4 (00:38→19:08)
[2017-02-06] MEDS: POLYVINYL ALCOHOL 15 ML BOTTLE EACHEYE SCH ×3 (05:00→20:29)
[2017-02-06] MEDS: OMEPRAZOLE 20 MG CAPSULE.DR GT SCH (05:00)
[2017-02-06] MEDS: FIBERSOURCE HN 1,000 ML BOTTLE GT PRN ×2 (05:00→20:31)
[2017-02-06 07:34] VITALS: BP 107/67
[2017-02-06] MEDS: MINERAL OIL/PETROLATUM,WHITE 454 GM JAR TP SCH ×2 (08:12→20:30)
[2017-02-06] MEDS: Z GUARD REMEDY 4 OZ OINT TP SCH ×2 (08:12→20:30)
[2017-02-06] MEDS: OCUSOFT LID SCRUB TP SCH ×2 (08:12→17:00)
[2017-02-06] MEDS: ZINC OXIDE 30 GM TUBE TP SCH ×2 (08:12→20:30)
[2017-02-06] MEDS: PEPCID GT SCH ×2 (08:12→20:30)
[2017-02-06] MEDS: CHLORHEXIDINE GLUCONATE 15 ML UDC MM SCH ×2 (08:12→17:27)
[2017-02-06] MEDS: Z GUARD REMEDY 2 OZ OINT TP SCH ×2 (08:12→20:30)
[2017-02-06] MEDS: HYDROGEN PEROXIDE 480 ML BOTTLE TP SCH ×2 (10:30→20:30)
--- NOTE | 2017-02-06 14:48 | NUR ---
Per dtr Olivia Olivo, she would like for resident to receive the flu vaccine. Charge nurse informed.
[2017-02-06 19:13] VITALS: BP 98/55
[2017-02-06] MEDS: MULTIVIT, IRON, MIN NO. 8, FA 1 TAB GT SCH (20:30)
[2017-02-06] MEDS: ASCORBIC ACID 500 MG TABLET GT SCH (20:30)
[2017-02-06] MEDS: PROSOURCE / PROSTAT (PYXIS) 30 ML UDC GT SCH (20:30)
[2017-02-06] MEDS: MAGNESIUM HYDROXIDE 30 ML UDC GT PRN (20:32)
[2017-02-07] MEDS: SUCRALFATE 1 G/10 ML UDC GT SCH ×6 (00:19→21:55)
[2017-02-07] MEDS: IPRATROPIUM NEB FS 0.5 MG/2.5 ML AMPUL.NEB IH SCH ×4 (01:21→19:35)
[2017-02-07] MEDS: ALBUTEROL FS 2.5 MG/0.5 ML VIAL.NEB NEB SCH ×4 (01:21→19:35)
[2017-02-07] MEDS: POLYVINYL ALCOHOL 15 ML BOTTLE EACHEYE SCH ×3 (05:12→21:55)
[2017-02-07] MEDS: OMEPRAZOLE 20 MG CAPSULE.DR GT SCH (05:12)
[2017-02-07 07:39] VITALS: BP 108/74
[2017-02-07] MEDS: Z GUARD REMEDY 4 OZ OINT TP SCH ×2 (09:00→21:56)
[2017-02-07] MEDS: ZINC OXIDE 30 GM TUBE TP SCH ×2 (09:00→21:56)
[2017-02-07] MEDS: Z GUARD REMEDY 2 OZ OINT TP SCH ×2 (09:00→21:55)
[2017-02-07] MEDS: HYDROGEN PEROXIDE 480 ML BOTTLE TP SCH ×2 (09:00→21:55)
[2017-02-07] MEDS: CHLORHEXIDINE GLUCONATE 15 ML UDC MM SCH ×2 (09:03→17:17)
[2017-02-07] MEDS: PEPCID GT SCH ×2 (09:03→21:55)
[2017-02-07] MEDS: OCUSOFT LID SCRUB TP SCH ×2 (09:03→17:00)
[2017-02-07] MEDS: MINERAL OIL/PETROLATUM,WHITE 454 GM JAR TP SCH ×2 (09:03→21:55)
[2017-02-07] MEDS: FIBERSOURCE HN 1,000 ML BOTTLE GT PRN (12:19)
[2017-02-07 19:36] VITALS: BP 105/64
[2017-02-07] MEDS ORDERED: HYDROGEL DRESSING 90 GM TUBE TP SCH (21:00)
[2017-02-07] MEDS: MULTIVIT, IRON, MIN NO. 8, FA 1 TAB GT SCH (21:55)
[2017-02-07] MEDS: PROSOURCE / PROSTAT (PYXIS) 30 ML UDC GT SCH (21:55)
[2017-02-07] MEDS: ASCORBIC ACID 500 MG TABLET GT SCH (21:55)
[2017-02-07] MEDS: CLOTRIMAZOLE/BETAMETASONE DIPROPIONATE 15 GM TUBE TP SCH (21:55)
[2017-02-08] MEDS: SUCRALFATE 1 G/10 ML UDC GT SCH ×6 (00:43→21:03)
[2017-02-08] MEDS: FIBERSOURCE HN 1,000 ML BOTTLE GT PRN (00:51)
[2017-02-08] MEDS: IPRATROPIUM NEB FS 0.5 MG/2.5 ML AMPUL.NEB IH SCH ×4 (01:34→19:23)
[2017-02-08] MEDS: ALBUTEROL FS 2.5 MG/0.5 ML VIAL.NEB NEB SCH ×4 (01:34→19:23)
[2017-02-08] MEDS: OMEPRAZOLE 20 MG CAPSULE.DR GT SCH (05:16)
[2017-02-08] MEDS: POLYVINYL ALCOHOL 15 ML BOTTLE EACHEYE SCH ×3 (05:16→21:02)
[2017-02-08 07:59] VITALS: BP 132/75
[2017-02-08] MEDS: PEPCID GT SCH ×2 (08:47→21:04)
[2017-02-08] MEDS: CHLORHEXIDINE GLUCONATE 15 ML UDC MM SCH ×2 (08:47→16:45)
[2017-02-08] MEDS: Z GUARD REMEDY 4 OZ OINT TP SCH ×2 (08:48→21:09)
[2017-02-08] MEDS: OCUSOFT LID SCRUB TP SCH ×2 (08:48→16:45)
[2017-02-08] MEDS: Z GUARD REMEDY 2 OZ OINT TP SCH ×2 (08:48→21:08)
[2017-02-08] MEDS: MINERAL OIL/PETROLATUM,WHITE 454 GM JAR TP SCH ×2 (08:48→21:08)
[2017-02-08] MEDS: CLOTRIMAZOLE/BETAMETASONE DIPROPIONATE 15 GM TUBE TP SCH ×2 (08:48→21:08)
[2017-02-08] MEDS: ZINC OXIDE 30 GM TUBE TP SCH ×2 (08:48→21:09)
[2017-02-08] MEDS: HYDROGEN PEROXIDE 480 ML BOTTLE TP SCH ×2 (08:48→21:08)
[2017-02-08] MEDS ORDERED: FLU VACC QS 2017-18(36MOS+)/PF 0.5 ML DISP.SYRIN IM ONE (17:00)
[2017-02-08 19:29] VITALS: BP 111/66
[2017-02-08] MEDS: PROSOURCE / PROSTAT (PYXIS) 30 ML UDC GT SCH (21:04)
[2017-02-08] MEDS: MULTIVIT, IRON, MIN NO. 8, FA 1 TAB GT SCH (21:06)
[2017-02-08] MEDS: ASCORBIC ACID 500 MG TABLET GT SCH (21:08)
[2017-02-09] MEDS: ALBUTEROL FS 2.5 MG/0.5 ML VIAL.NEB NEB SCH ×4 (01:13→19:26)
[2017-02-09] MEDS: IPRATROPIUM NEB FS 0.5 MG/2.5 ML AMPUL.NEB IH SCH ×4 (01:13→19:26)
[2017-02-09] MEDS: SUCRALFATE 1 G/10 ML UDC GT SCH ×6 (01:51→21:45)
[2017-02-09] MEDS: POLYVINYL ALCOHOL 15 ML BOTTLE EACHEYE SCH ×3 (05:33→21:49)
[2017-02-09] MEDS: OMEPRAZOLE 20 MG CAPSULE.DR GT SCH (05:33)
[2017-02-09] MEDS: CHLORHEXIDINE GLUCONATE 15 ML UDC MM SCH ×2 (08:37→17:14)
[2017-02-09] MEDS: HYDROGEN PEROXIDE 480 ML BOTTLE TP SCH ×2 (08:37→22:02)
[2017-02-09] MEDS: MINERAL OIL/PETROLATUM,WHITE 454 GM JAR TP SCH ×2 (08:37→21:00)
[2017-02-09] MEDS: PEPCID GT SCH ×2 (08:37→21:47)
[2017-02-09] MEDS: OCUSOFT LID SCRUB TP SCH ×2 (08:37→17:14)
[2017-02-09] MEDS: CLOTRIMAZOLE/BETAMETASONE DIPROPIONATE 15 GM TUBE TP SCH ×2 (08:37→21:00)
[2017-02-09] MEDS: Z GUARD REMEDY 2 OZ OINT TP SCH ×2 (08:37→21:00)
[2017-02-09] MEDS: ZINC OXIDE 30 GM TUBE TP SCH ×2 (08:38→21:00)
[2017-02-09] MEDS: Z GUARD REMEDY 4 OZ OINT TP SCH ×2 (08:38→21:00)
--- NOTE | 2017-02-09 08:38 | NUR ---
RT PATIENT REC'D TRACHED ON [facility] VENT WITH SETTINGS SET BY TOLERATED WELL. VENT ALARMS CHECKED + AUDIBLE. TRACH SECURE AND IN PROPER POSITION. 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 DIM COARSE BILAT B/S. SX'D WITH MOD AMT PALE SEMITHICK SECRETIONS. PATIENT APPEARS COMFORTABLE AND IN NO DISTRESS. AMBU BAG AND BACK UP TRACH AT BEDSIDE. CONT CURRENT PLAN OF RESP CARE. Addendum: 02/09/17 at 1205 by DIALLO SEGURA RT Amended: Links added.
[2017-02-09 14:36] VITALS: BP 118/72
--- NOTE | 2017-02-09 18:10 | NUR ---
No adverse reaction to flu vaccine noted.
[2017-02-09 20:05] VITALS: BP 109/65
[2017-02-09] MEDS: ASCORBIC ACID 500 MG TABLET GT SCH (21:48)
[2017-02-09] MEDS: PROSOURCE / PROSTAT (PYXIS) 30 ML UDC GT SCH (21:55)
[2017-02-09] MEDS: MULTIVIT, IRON, MIN NO. 8, FA 1 TAB GT SCH (21:55)
[2017-02-10] MEDS: IPRATROPIUM NEB FS 0.5 MG/2.5 ML AMPUL.NEB IH SCH ×4 (01:38→19:22)
[2017-02-10] MEDS: ALBUTEROL FS 2.5 MG/0.5 ML VIAL.NEB NEB SCH ×4 (01:38→19:22)
[2017-02-10] MEDS: SUCRALFATE 1 G/10 ML UDC GT SCH ×6 (01:50→20:53)
[2017-02-10] MEDS: POLYVINYL ALCOHOL 15 ML BOTTLE EACHEYE SCH ×3 (05:00→20:53)
[2017-02-10] MEDS: OMEPRAZOLE 20 MG CAPSULE.DR GT SCH (06:35)
--- NOTE | 2017-02-10 06:55 | NUR ---
NO SIGNIFICANT CHANGES OVERNIGHT, PT SLEEP INTERMITTENTLY, PT GET EASILY AGITATED WITH TREATMENT AND BATH, BECOME FIESTY AND PHYSICAL.KEPT CLEAN AND DRY.
[2017-02-10 08:01] VITALS: BP 115/59
[2017-02-10] MEDS: CHLORHEXIDINE GLUCONATE 15 ML UDC MM SCH ×2 (09:12→17:29)
[2017-02-10] MEDS: PEPCID GT SCH ×2 (09:12→20:53)
[2017-02-10] MEDS: MINERAL OIL/PETROLATUM,WHITE 454 GM JAR TP SCH ×2 (09:12→20:54)
[2017-02-10] MEDS: ZINC OXIDE 30 GM TUBE TP SCH ×2 (09:13→20:55)
[2017-02-10] MEDS: OCUSOFT LID SCRUB TP SCH ×2 (09:13→17:29)
[2017-02-10] MEDS: Z GUARD REMEDY 4 OZ OINT TP SCH ×2 (09:13→20:54)
[2017-02-10] MEDS: CLOTRIMAZOLE/BETAMETASONE DIPROPIONATE 15 GM TUBE TP SCH ×2 (09:13→20:54)
[2017-02-10] MEDS: HYDROGEN PEROXIDE 480 ML BOTTLE TP SCH ×2 (09:13→20:54)
[2017-02-10] MEDS: Z GUARD REMEDY 2 OZ OINT TP SCH ×2 (09:13→20:54)
--- NOTE | 2017-02-10 19:04 | NUR ---
No adverse reaction to flu vaccine noted.
[2017-02-10 19:38] VITALS: BP 102/69
[2017-02-10] MEDS: MULTIVIT, IRON, MIN NO. 8, FA 1 TAB GT SCH (20:53)
[2017-02-10] MEDS: PROSOURCE / PROSTAT (PYXIS) 30 ML UDC GT SCH (20:53)
[2017-02-10] MEDS: ASCORBIC ACID 500 MG TABLET GT SCH (20:53)
[2017-02-10] MEDS: FIBERSOURCE HN 1,000 ML BOTTLE GT PRN (20:55)
[2017-02-11] MEDS: SUCRALFATE 1 G/10 ML UDC GT SCH ×5 (00:33→21:44)
[2017-02-11] MEDS: IPRATROPIUM NEB FS 0.5 MG/2.5 ML AMPUL.NEB IH SCH ×4 (01:44→19:11)
[2017-02-11] MEDS: ALBUTEROL FS 2.5 MG/0.5 ML VIAL.NEB NEB SCH ×4 (01:44→19:11)
[2017-02-11] MEDS: POLYVINYL ALCOHOL 15 ML BOTTLE EACHEYE SCH ×3 (05:49→21:45)
[2017-02-11] MEDS: OMEPRAZOLE 20 MG CAPSULE.DR GT SCH (05:49)
[2017-02-11 08:11] VITALS: BP 102/64
[2017-02-11] MEDS: HYDROGEN PEROXIDE 480 ML BOTTLE TP SCH ×2 (09:00→21:45)
[2017-02-11] MEDS: Z GUARD REMEDY 2 OZ OINT TP SCH ×2 (09:00→21:45)
[2017-02-11] MEDS: PEPCID GT SCH ×2 (09:00→21:45)
[2017-02-11] MEDS: CHLORHEXIDINE GLUCONATE 15 ML UDC MM SCH ×2 (09:00→17:00)
[2017-02-11] MEDS: CLOTRIMAZOLE/BETAMETASONE DIPROPIONATE 15 GM TUBE TP SCH ×2 (09:00→21:45)
[2017-02-11] MEDS: OCUSOFT LID SCRUB TP SCH ×2 (09:00→17:00)
[2017-02-11] MEDS: Z GUARD REMEDY 4 OZ OINT TP SCH ×2 (09:00→21:45)
[2017-02-11] MEDS: MINERAL OIL/PETROLATUM,WHITE 454 GM JAR TP SCH ×2 (09:00→21:45)
[2017-02-11] MEDS: ZINC OXIDE 30 GM TUBE TP SCH ×2 (09:00→21:46)
[2017-02-11] MEDS: FIBERSOURCE HN 1,000 ML BOTTLE GT PRN (14:29)
[2017-02-11 20:04] VITALS: BP 108/53
[2017-02-11] MEDS: PROSOURCE / PROSTAT (PYXIS) 30 ML UDC GT SCH (21:45)
[2017-02-11] MEDS: ASCORBIC ACID 500 MG TABLET GT SCH (21:45)
[2017-02-11] MEDS: MULTIVIT, IRON, MIN NO. 8, FA 1 TAB GT SCH (21:45)
[2017-02-12] MEDS: SUCRALFATE 1 G/10 ML UDC GT SCH ×6 (00:42→21:35)
[2017-02-12] MEDS: ALBUTEROL FS 2.5 MG/0.5 ML VIAL.NEB NEB SCH ×4 (01:18→19:49)
[2017-02-12] MEDS: IPRATROPIUM NEB FS 0.5 MG/2.5 ML AMPUL.NEB IH SCH ×4 (01:18→19:49)
[2017-02-12] MEDS: POLYVINYL ALCOHOL 15 ML BOTTLE EACHEYE SCH ×3 (05:54→21:35)
[2017-02-12] MEDS: OMEPRAZOLE 20 MG CAPSULE.DR GT SCH (05:54)
[2017-02-12] MEDS: FIBERSOURCE HN 1,000 ML BOTTLE GT PRN (05:55)
[2017-02-12 08:05] VITALS: BP 118/76
[2017-02-12] MEDS: ZINC OXIDE 30 GM TUBE TP SCH ×2 (09:00→21:35)
[2017-02-12] MEDS: CLOTRIMAZOLE/BETAMETASONE DIPROPIONATE 15 GM TUBE TP SCH ×2 (09:00→21:35)
[2017-02-12] MEDS: PEPCID GT SCH ×2 (09:00→21:35)
[2017-02-12] MEDS: CHLORHEXIDINE GLUCONATE 15 ML UDC MM SCH ×2 (09:00→17:48)
[2017-02-12] MEDS: HYDROGEN PEROXIDE 480 ML BOTTLE TP SCH ×2 (09:00→21:35)
[2017-02-12] MEDS: OCUSOFT LID SCRUB TP SCH ×2 (09:00→17:48)
[2017-02-12] MEDS: Z GUARD REMEDY 4 OZ OINT TP SCH ×2 (09:00→21:35)
[2017-02-12] MEDS: Z GUARD REMEDY 2 OZ OINT TP SCH ×2 (09:00→21:35)
[2017-02-12] MEDS: MINERAL OIL/PETROLATUM,WHITE 454 GM JAR TP SCH ×2 (09:00→21:35)
--- NOTE | 2017-02-12 16:00 | NUR ---
Met with the patient several times today. He was in good spirits and was watching television. He was interacting with the clinical social worker using hand signals. Remained engaged in watching television.
[2017-02-12 19:18] VITALS: BP 125/55
[2017-02-12] MEDS: PROSOURCE / PROSTAT (PYXIS) 30 ML UDC GT SCH (21:35)
[2017-02-12] MEDS: ASCORBIC ACID 500 MG TABLET GT SCH (21:35)
[2017-02-12] MEDS: MULTIVIT, IRON, MIN NO. 8, FA 1 TAB GT SCH (21:35)
[2017-02-13] MEDS: SUCRALFATE 1 G/10 ML UDC GT SCH ×6 (01:21→21:59)
[2017-02-13] MEDS: ALBUTEROL FS 2.5 MG/0.5 ML VIAL.NEB NEB SCH ×4 (01:51→19:42)
[2017-02-13] MEDS: IPRATROPIUM NEB FS 0.5 MG/2.5 ML AMPUL.NEB IH SCH ×4 (01:51→19:42)
[2017-02-13] MEDS: POLYVINYL ALCOHOL 15 ML BOTTLE EACHEYE SCH ×3 (05:00→21:59)
[2017-02-13] MEDS: OMEPRAZOLE 20 MG CAPSULE.DR GT SCH (06:24)
[2017-02-13 07:49] VITALS: BP 104/66
[2017-02-13] MEDS: CHLORHEXIDINE GLUCONATE 15 ML UDC MM SCH ×2 (08:52→17:51)
[2017-02-13] MEDS: PEPCID GT SCH ×2 (08:52→21:59)
[2017-02-13] MEDS: MINERAL OIL/PETROLATUM,WHITE 454 GM JAR TP SCH ×2 (08:53→21:59)
[2017-02-13] MEDS: Z GUARD REMEDY 2 OZ OINT TP SCH ×2 (08:53→21:59)
[2017-02-13] MEDS: OCUSOFT LID SCRUB TP SCH ×2 (08:53→17:00)
[2017-02-13] MEDS: ZINC OXIDE 30 GM TUBE TP SCH ×2 (08:54→22:00)
[2017-02-13] MEDS: Z GUARD REMEDY 4 OZ OINT TP SCH ×2 (08:54→21:59)
[2017-02-13] MEDS: HYDROGEN PEROXIDE 480 ML BOTTLE TP SCH ×2 (11:15→21:59)
[2017-02-13] MEDS: CLOTRIMAZOLE/BETAMETASONE DIPROPIONATE 15 GM TUBE TP SCH ×2 (11:15→21:59)
--- NOTE | 2017-02-13 15:00 | NUR ---
IDT meeting held. daughter Olivia Olivo unable to attend. Current orders, new medications, treatment and plan of care reviewed. Resident is stable and no new orders were given.
[2017-02-13 19:52] VITALS: BP 114/67
[2017-02-13] MEDS: PROSOURCE / PROSTAT (PYXIS) 30 ML UDC GT SCH (21:59)
[2017-02-13] MEDS: MULTIVIT, IRON, MIN NO. 8, FA 1 TAB GT SCH (21:59)
[2017-02-13] MEDS: ASCORBIC ACID 500 MG TABLET GT SCH (21:59)
[2017-02-14] MEDS: IPRATROPIUM NEB FS 0.5 MG/2.5 ML AMPUL.NEB IH SCH ×4 (00:51→19:27)
[2017-02-14] MEDS: ALBUTEROL FS 2.5 MG/0.5 ML VIAL.NEB NEB SCH ×4 (00:51→19:27)
[2017-02-14] MEDS: SUCRALFATE 1 G/10 ML UDC GT SCH ×6 (01:00→21:12)
[2017-02-14] MEDS: FIBERSOURCE HN 1,000 ML BOTTLE GT PRN ×2 (04:46→17:18)
[2017-02-14] MEDS: OMEPRAZOLE 20 MG CAPSULE.DR GT SCH (05:36)
[2017-02-14] MEDS: POLYVINYL ALCOHOL 15 ML BOTTLE EACHEYE SCH ×3 (05:36→21:12)
[2017-02-14 08:00] VITALS: BP 121/71
[2017-02-14] MEDS: Z GUARD REMEDY 4 OZ OINT TP SCH ×2 (09:00→21:12)
[2017-02-14] MEDS: CLOTRIMAZOLE/BETAMETASONE DIPROPIONATE 15 GM TUBE TP SCH ×2 (09:00→21:12)
[2017-02-14] MEDS: ZINC OXIDE 30 GM TUBE TP SCH ×2 (09:00→21:13)
[2017-02-14] MEDS: Z GUARD REMEDY 2 OZ OINT TP SCH ×2 (09:00→21:12)
[2017-02-14] MEDS: HYDROGEN PEROXIDE 480 ML BOTTLE TP SCH ×2 (09:00→21:12)
[2017-02-14] MEDS: CHLORHEXIDINE GLUCONATE 15 ML UDC MM SCH ×2 (09:26→17:11)
[2017-02-14] MEDS: PEPCID GT SCH ×2 (09:26→21:12)
[2017-02-14] MEDS: OCUSOFT LID SCRUB TP SCH ×2 (09:27→17:11)
[2017-02-14] MEDS: MINERAL OIL/PETROLATUM,WHITE 454 GM JAR TP SCH ×2 (09:27→21:12)
--- NOTE | 2017-02-14 10:20 | NUR ---
RT PT IS TRACHED AWAKE AND ALERT ON THE VENT WITH NOTED SETTINGS. MONTHLY TRACH CHANGE DONE WITH NEW SHILEY 6 XLT DISTAL TRACH. TRACH CHANGE DONE WITH NO COMLICATIONS. THERE IS SMALL BLEEDING WITH NO REDNESS AT TRACH SITE. PT PLACED BACK ON VENT. EQUAL BILATERAL BREATHE SOUNDS AND CHEST RISE. NO SIGNS OR RESPIRATORY DISTRESS NOTED AT THIS TIME, WILL CONTINUE TO MONITOR.
--- NOTE | 2017-02-14 12:00 | NUR ---
Seen and examined by [place] DeeO given at this time.
[2017-02-14 19:30] VITALS: BP 115/67
[2017-02-14] MEDS: MULTIVIT, IRON, MIN NO. 8, FA 1 TAB GT SCH (21:12)
[2017-02-14] MEDS: PROSOURCE / PROSTAT (PYXIS) 30 ML UDC GT SCH (21:12)
[2017-02-14] MEDS: ASCORBIC ACID 500 MG TABLET GT SCH (21:12)
[2017-02-15] MEDS: SUCRALFATE 1 G/10 ML UDC GT SCH ×6 (00:46→21:10)
[2017-02-15] MEDS: ALBUTEROL FS 2.5 MG/0.5 ML VIAL.NEB NEB SCH ×4 (02:12→19:10)
[2017-02-15] MEDS: IPRATROPIUM NEB FS 0.5 MG/2.5 ML AMPUL.NEB IH SCH ×4 (02:12→19:10)
[2017-02-15] MEDS: POLYVINYL ALCOHOL 15 ML BOTTLE EACHEYE SCH ×3 (05:25→21:10)
[2017-02-15] MEDS: OMEPRAZOLE 20 MG CAPSULE.DR GT SCH (05:26)
[2017-02-15 08:29] VITALS: BP 98/65
[2017-02-15] MEDS: MINERAL OIL/PETROLATUM,WHITE 454 GM JAR TP SCH ×2 (08:32→21:10)
[2017-02-15] MEDS: CHLORHEXIDINE GLUCONATE 15 ML UDC MM SCH ×2 (08:32→17:24)
[2017-02-15] MEDS: Z GUARD REMEDY 4 OZ OINT TP SCH ×2 (08:32→21:11)
[2017-02-15] MEDS: ZINC OXIDE 30 GM TUBE TP SCH ×2 (08:32→21:11)
[2017-02-15] MEDS: CLOTRIMAZOLE/BETAMETASONE DIPROPIONATE 15 GM TUBE TP SCH ×2 (08:32→21:11)
[2017-02-15] MEDS: PEPCID GT SCH ×2 (08:32→21:10)
[2017-02-15] MEDS: HYDROGEN PEROXIDE 480 ML BOTTLE TP SCH ×2 (08:32→21:10)
[2017-02-15] MEDS: OCUSOFT LID SCRUB TP SCH ×2 (08:32→17:24)
[2017-02-15 09:54] VITALS: BP 98/65
[2017-02-15 19:10] VITALS: BP 120/75
[2017-02-15] MEDS: ASCORBIC ACID 500 MG TABLET GT SCH (21:10)
[2017-02-15] MEDS: MULTIVIT, IRON, MIN NO. 8, FA 1 TAB GT SCH (21:10)
[2017-02-15] MEDS: PROSOURCE / PROSTAT (PYXIS) 30 ML UDC GT SCH (21:10)
[2017-02-15] MEDS: FIBERSOURCE HN 1,000 ML BOTTLE GT PRN (23:57)
[2017-02-16] MEDS: SUCRALFATE 1 G/10 ML UDC GT SCH ×6 (00:01→21:05)
[2017-02-16] MEDS: IPRATROPIUM NEB FS 0.5 MG/2.5 ML AMPUL.NEB IH SCH ×4 (00:52→20:06)
[2017-02-16] MEDS: ALBUTEROL FS 2.5 MG/0.5 ML VIAL.NEB NEB SCH ×4 (00:52→20:06)
[2017-02-16] MEDS: POLYVINYL ALCOHOL 15 ML BOTTLE EACHEYE SCH ×3 (05:28→21:05)
[2017-02-16] MEDS: OMEPRAZOLE 20 MG CAPSULE.DR GT SCH (05:28)
[2017-02-16 08:16] VITALS: BP 107/73
[2017-02-16] MEDS: PEPCID GT SCH ×2 (09:20→21:05)
[2017-02-16] MEDS: CHLORHEXIDINE GLUCONATE 15 ML UDC MM SCH ×2 (09:20→17:47)
[2017-02-16] MEDS: CLOTRIMAZOLE/BETAMETASONE DIPROPIONATE 15 GM TUBE TP SCH ×2 (09:21→21:05)
[2017-02-16] MEDS: ZINC OXIDE 30 GM TUBE TP SCH ×2 (09:21→21:04)
[2017-02-16] MEDS: HYDROGEN PEROXIDE 480 ML BOTTLE TP SCH ×2 (09:21→21:05)
[2017-02-16] MEDS: MINERAL OIL/PETROLATUM,WHITE 454 GM JAR TP SCH ×2 (09:21→21:05)
[2017-02-16] MEDS: OCUSOFT LID SCRUB TP SCH ×2 (09:21→17:47)
[2017-02-16] MEDS: Z GUARD REMEDY 4 OZ OINT TP SCH ×2 (09:21→21:05)
--- NOTE | 2017-02-16 10:04 | NUR ---
Seen by Dr. Natasha CARPENTER for dental exam. No issues were noted. Informed resident's dtr Olivia Olivo.
--- NOTE | 2017-02-16 13:30 | NUR ---
SEEN AND EXAMINED BY RADHAMES SWAIN WITH NO NEW ORDERS AT THIS TIME.
[2017-02-16 19:53] VITALS: BP 92/57
[2017-02-16] MEDS: MULTIVIT, IRON, MIN NO. 8, FA 1 TAB GT SCH (21:04)
[2017-02-16] MEDS: PROSOURCE / PROSTAT (PYXIS) 30 ML UDC GT SCH (21:05)
[2017-02-16] MEDS: ASCORBIC ACID 500 MG TABLET GT SCH (21:05)
[2017-02-17] MEDS: SUCRALFATE 1 G/10 ML UDC GT SCH ×6 (01:05→21:05)
[2017-02-17] MEDS: ALBUTEROL FS 2.5 MG/0.5 ML VIAL.NEB NEB SCH ×4 (02:00→19:39)
[2017-02-17] MEDS: IPRATROPIUM NEB FS 0.5 MG/2.5 ML AMPUL.NEB IH SCH ×4 (02:00→19:39)
[2017-02-17] MEDS: POLYVINYL ALCOHOL 15 ML BOTTLE EACHEYE SCH ×3 (04:58→21:05)
[2017-02-17] MEDS: OMEPRAZOLE 20 MG CAPSULE.DR GT SCH (05:51)
[2017-02-17] MEDS: FIBERSOURCE HN 1,000 ML BOTTLE GT PRN (06:24)
[2017-02-17 08:29] VITALS: BP 114/64
--- NOTE | 2017-02-17 09:55 | NUR ---
all 9am meds given and treatment done. scanner not working.
[2017-02-17] MEDS: PEPCID GT SCH ×2 (09:56→21:05)
[2017-02-17] MEDS: MINERAL OIL/PETROLATUM,WHITE 454 GM JAR TP SCH ×2 (09:56→21:05)
[2017-02-17] MEDS: CHLORHEXIDINE GLUCONATE 15 ML UDC MM SCH ×2 (09:56→17:16)
[2017-02-17] MEDS: HYDROGEN PEROXIDE 480 ML BOTTLE TP SCH ×2 (09:56→21:05)
[2017-02-17] MEDS: CLOTRIMAZOLE/BETAMETASONE DIPROPIONATE 15 GM TUBE TP SCH ×2 (09:56→21:05)
[2017-02-17] MEDS: ZINC OXIDE 30 GM TUBE TP SCH ×2 (09:56→21:06)
[2017-02-17] MEDS: OCUSOFT LID SCRUB TP SCH ×2 (09:56→17:17)
[2017-02-17] MEDS: Z GUARD REMEDY 4 OZ OINT TP SCH ×2 (09:56→21:06)
[2017-02-17 20:34] VITALS: BP 104/63
[2017-02-17] MEDS: PROSOURCE / PROSTAT (PYXIS) 30 ML UDC GT SCH (21:05)
[2017-02-17] MEDS: ASCORBIC ACID 500 MG TABLET GT SCH (21:05)
[2017-02-17] MEDS: MULTIVIT, IRON, MIN NO. 8, FA 1 TAB GT SCH (21:05)
[2017-02-18] MEDS: FIBERSOURCE HN 1,000 ML BOTTLE GT PRN ×2 (00:01→17:10)
[2017-02-18] MEDS: SUCRALFATE 1 G/10 ML UDC GT SCH ×6 (00:01→21:23)
[2017-02-18] MEDS: IPRATROPIUM NEB FS 0.5 MG/2.5 ML AMPUL.NEB IH SCH ×4 (02:20→20:01)
[2017-02-18] MEDS: ALBUTEROL FS 2.5 MG/0.5 ML VIAL.NEB NEB SCH ×4 (02:20→20:01)
[2017-02-18] MEDS: OMEPRAZOLE 20 MG CAPSULE.DR GT SCH (05:42)
[2017-02-18] MEDS: POLYVINYL ALCOHOL 15 ML BOTTLE EACHEYE SCH ×3 (05:51→21:23)
[2017-02-18 08:08] VITALS: BP 110/71
[2017-02-18] MEDS: PEPCID GT SCH ×2 (09:31→21:23)
[2017-02-18] MEDS: HYDROGEN PEROXIDE 480 ML BOTTLE TP SCH ×2 (09:32→21:25)
[2017-02-18] MEDS: CHLORHEXIDINE GLUCONATE 15 ML UDC MM SCH ×2 (09:32→16:32)
[2017-02-18] MEDS: OCUSOFT LID SCRUB TP SCH ×2 (09:32→16:33)
[2017-02-18] MEDS: MINERAL OIL/PETROLATUM,WHITE 454 GM JAR TP SCH ×2 (09:32→21:25)
[2017-02-18] MEDS: ZINC OXIDE 30 GM TUBE TP SCH ×2 (09:32→21:25)
[2017-02-18] MEDS: CLOTRIMAZOLE/BETAMETASONE DIPROPIONATE 15 GM TUBE TP SCH ×2 (09:32→21:25)
[2017-02-18] MEDS: Z GUARD REMEDY 4 OZ OINT TP SCH ×2 (09:32→21:25)
--- NOTE | 2017-02-18 11:56 | NUR ---
GONZALO spoke to the resident's sister Elizabeth. She was calling to see how the resident was doing and to see if she could possibly speak to him. SW went to the resident's room but resident was sleeping. Elizabeth stated that she would try to call back at another time. Informed her that the staff previously put resident up in the gerichair in the activity room and resident was happy and moving his arms to the music. She was happy to hear this. Also informed her that SW spent some time with resident watching television the other day and that resident was interested in the tv program they were watching. She spoke with the SW for some time and stated that she will try calling a bit later to see if resident was awake.
--- NOTE | 2017-02-18 15:20 | NUR ---
SEEN AND EXAMINED BY RADHAMES SWAIN WITH NO NEW ORDERS AT THIS TIME.
[2017-02-18 19:34] VITALS: BP 115/79
[2017-02-18] MEDS: PROSOURCE / PROSTAT (PYXIS) 30 ML UDC GT SCH (21:23)
[2017-02-18] MEDS: MULTIVIT, IRON, MIN NO. 8, FA 1 TAB GT SCH (21:25)
[2017-02-18] MEDS: ASCORBIC ACID 500 MG TABLET GT SCH (21:25)
[2017-02-19] MEDS: SUCRALFATE 1 G/10 ML UDC GT SCH ×6 (00:01→21:01)
[2017-02-19] MEDS: ALBUTEROL FS 2.5 MG/0.5 ML VIAL.NEB NEB SCH ×4 (01:30→19:10)
[2017-02-19] MEDS: IPRATROPIUM NEB FS 0.5 MG/2.5 ML AMPUL.NEB IH SCH ×4 (01:30→19:10)
[2017-02-19] MEDS: FIBERSOURCE HN 1,000 ML BOTTLE GT PRN ×2 (05:33→22:22)
[2017-02-19] MEDS: POLYVINYL ALCOHOL 15 ML BOTTLE EACHEYE SCH ×3 (05:33→21:01)
[2017-02-19] MEDS: OMEPRAZOLE 20 MG CAPSULE.DR GT SCH (05:33)
[2017-02-19 07:45] VITALS: BP 104/63
[2017-02-19] MEDS: OCUSOFT LID SCRUB TP SCH ×2 (09:55→17:33)
[2017-02-19] MEDS: Z GUARD REMEDY 4 OZ OINT TP SCH ×2 (09:55→21:03)
[2017-02-19] MEDS: PEPCID GT SCH ×2 (09:55→21:01)
[2017-02-19] MEDS: CLOTRIMAZOLE/BETAMETASONE DIPROPIONATE 15 GM TUBE TP SCH ×2 (09:55→21:03)
[2017-02-19] MEDS: CHLORHEXIDINE GLUCONATE 15 ML UDC MM SCH ×2 (09:55→17:27)
[2017-02-19] MEDS: HYDROGEN PEROXIDE 480 ML BOTTLE TP SCH ×2 (09:55→21:02)
[2017-02-19] MEDS: MINERAL OIL/PETROLATUM,WHITE 454 GM JAR TP SCH ×2 (09:55→21:02)
[2017-02-19] MEDS: MAGNESIUM HYDROXIDE 30 ML UDC GT PRN (18:25)
[2017-02-19 20:25] VITALS: BP 104/60
[2017-02-19] MEDS: PROSOURCE / PROSTAT (PYXIS) 30 ML UDC GT SCH (21:01)
[2017-02-19] MEDS: ASCORBIC ACID 500 MG TABLET GT SCH (21:01)
[2017-02-19] MEDS: MULTIVIT, IRON, MIN NO. 8, FA 1 TAB GT SCH (21:01)
[2017-02-20] MEDS: SUCRALFATE 1 G/10 ML UDC GT SCH ×5 (00:22→20:39)
[2017-02-20] MEDS: IPRATROPIUM NEB FS 0.5 MG/2.5 ML AMPUL.NEB IH SCH ×3 (01:13→19:47)
[2017-02-20] MEDS: ALBUTEROL FS 2.5 MG/0.5 ML VIAL.NEB NEB SCH ×3 (01:13→19:47)
[2017-02-20 08:00] VITALS: BP 110/74
[2017-02-20] MEDS: HYDROGEN PEROXIDE 480 ML BOTTLE TP SCH ×2 (09:00→20:40)
[2017-02-20] MEDS: PEPCID GT SCH ×2 (09:00→20:39)
[2017-02-20] MEDS: CLOTRIMAZOLE/BETAMETASONE DIPROPIONATE 15 GM TUBE TP SCH ×2 (09:00→20:40)
[2017-02-20] MEDS: OCUSOFT LID SCRUB TP SCH ×2 (09:00→17:27)
[2017-02-20] MEDS: MINERAL OIL/PETROLATUM,WHITE 454 GM JAR TP SCH ×2 (09:00→20:40)
[2017-02-20] MEDS: CHLORHEXIDINE GLUCONATE 15 ML UDC MM SCH ×2 (09:00→17:27)
--- NOTE | 2017-02-20 09:00 | NUR ---
Seen and examined by Dr. Vance, new order given
[2017-02-20] MEDS: Z GUARD REMEDY 4 OZ OINT TP SCH ×2 (10:00→20:40)
[2017-02-20] MEDS: POLYVINYL ALCOHOL 15 ML BOTTLE EACHEYE SCH ×2 (13:00→20:39)
[2017-02-20] MEDS: MULTIVIT, IRON, MIN NO. 8, FA 1 TAB GT SCH (20:39)
[2017-02-20] MEDS: ASCORBIC ACID 500 MG TABLET GT SCH (20:39)
[2017-02-20] MEDS: PROSOURCE / PROSTAT (PYXIS) 30 ML UDC GT SCH (20:39)
[2017-02-20] MEDS: ACETAMINOPHEN 650 MG/20 ML UDC- FOR SA PATIENTS ONLY GT PRN (20:40)
[2017-02-20 22:13] VITALS: BP 123/74
[2017-02-21] MEDS: SUCRALFATE 1 G/10 ML UDC GT SCH ×6 (00:20→21:12)
[2017-02-21] MEDS: IPRATROPIUM NEB FS 0.5 MG/2.5 ML AMPUL.NEB IH SCH ×4 (01:25→19:53)
[2017-02-21] MEDS: ALBUTEROL FS 2.5 MG/0.5 ML VIAL.NEB NEB SCH ×4 (01:25→19:53)
[2017-02-21] MEDS: POLYVINYL ALCOHOL 15 ML BOTTLE EACHEYE SCH ×3 (05:15→21:12)
[2017-02-21] MEDS: OMEPRAZOLE 20 MG CAPSULE.DR GT SCH (05:15)
[2017-02-21] MEDS: FIBERSOURCE HN 1,000 ML BOTTLE GT PRN ×2 (05:16→22:21)
[2017-02-21] MEDS: PEPCID GT SCH ×2 (08:10→21:12)
[2017-02-21] MEDS: CHLORHEXIDINE GLUCONATE 15 ML UDC MM SCH ×2 (08:10→17:40)
[2017-02-21] MEDS: OCUSOFT LID SCRUB TP SCH ×2 (08:10→17:00)
[2017-02-21] MEDS: MINERAL OIL/PETROLATUM,WHITE 454 GM JAR TP SCH ×2 (08:10→21:13)
[2017-02-21 08:32] VITALS: BP 109/68
[2017-02-21] MEDS: CLOTRIMAZOLE/BETAMETASONE DIPROPIONATE 15 GM TUBE TP SCH ×2 (09:00→21:13)
[2017-02-21] MEDS: Z GUARD REMEDY 4 OZ OINT TP SCH ×2 (09:00→21:13)
[2017-02-21] MEDS: HYDROGEN PEROXIDE 480 ML BOTTLE TP SCH ×2 (09:00→21:13)
[2017-02-21 20:21] VITALS: BP 100/67
[2017-02-21] MEDS: MULTIVIT, IRON, MIN NO. 8, FA 1 TAB GT SCH (21:12)
[2017-02-21] MEDS: PROSOURCE / PROSTAT (PYXIS) 30 ML UDC GT SCH (21:12)
[2017-02-21] MEDS: ASCORBIC ACID 500 MG TABLET GT SCH (21:13)
[2017-02-22] MEDS: SUCRALFATE 1 G/10 ML UDC GT SCH ×6 (00:10→21:03)
[2017-02-22] MEDS: IPRATROPIUM NEB FS 0.5 MG/2.5 ML AMPUL.NEB IH SCH ×4 (01:16→20:13)
[2017-02-22] MEDS: ALBUTEROL FS 2.5 MG/0.5 ML VIAL.NEB NEB SCH ×4 (01:16→20:13)
[2017-02-22] MEDS: POLYVINYL ALCOHOL 15 ML BOTTLE EACHEYE SCH ×3 (05:30→21:03)
[2017-02-22] MEDS: OMEPRAZOLE 20 MG CAPSULE.DR GT SCH (05:30)
[2017-02-22] MEDS: HYDROGEN PEROXIDE 480 ML BOTTLE TP SCH ×2 (09:00→21:03)
[2017-02-22] MEDS: OCUSOFT LID SCRUB TP SCH ×2 (09:00→17:27)
[2017-02-22] MEDS: MINERAL OIL/PETROLATUM,WHITE 454 GM JAR TP SCH ×2 (09:00→21:03)
[2017-02-22] MEDS: Z GUARD REMEDY 4 OZ OINT TP SCH ×2 (09:00→21:03)
[2017-02-22] MEDS: PEPCID GT SCH ×2 (09:00→21:03)
[2017-02-22] MEDS: CLOTRIMAZOLE/BETAMETASONE DIPROPIONATE 15 GM TUBE TP SCH ×2 (09:00→21:03)
[2017-02-22] MEDS: CHLORHEXIDINE GLUCONATE 15 ML UDC MM SCH ×2 (09:00→17:27)
[2017-02-22] MEDS: FIBERSOURCE HN 1,000 ML BOTTLE GT PRN (16:08)
[2017-02-22 16:30] VITALS: BP 96/64
[2017-02-22 19:47] VITALS: BP 124/74
[2017-02-22] MEDS: ASCORBIC ACID 500 MG TABLET GT SCH (21:03)
[2017-02-22] MEDS: PROSOURCE / PROSTAT (PYXIS) 30 ML UDC GT SCH (21:03)
[2017-02-22] MEDS: MULTIVIT, IRON, MIN NO. 8, FA 1 TAB GT SCH (21:03)
[2017-02-23] MEDS: SUCRALFATE 1 G/10 ML UDC GT SCH ×6 (01:00→21:31)
[2017-02-23] MEDS: IPRATROPIUM NEB FS 0.5 MG/2.5 ML AMPUL.NEB IH SCH ×4 (02:18→20:18)
[2017-02-23] MEDS: ALBUTEROL FS 2.5 MG/0.5 ML VIAL.NEB NEB SCH ×4 (02:18→20:18)
[2017-02-23] MEDS: POLYVINYL ALCOHOL 15 ML BOTTLE EACHEYE SCH ×3 (05:16→21:31)
[2017-02-23] MEDS: OMEPRAZOLE 20 MG CAPSULE.DR GT SCH (05:16)
[2017-02-23 08:23] VITALS: BP 109/67
[2017-02-23] MEDS: PEPCID GT SCH ×2 (09:27→21:31)
[2017-02-23] MEDS: MINERAL OIL/PETROLATUM,WHITE 454 GM JAR TP SCH ×2 (09:28→21:31)
[2017-02-23] MEDS: CLOTRIMAZOLE/BETAMETASONE DIPROPIONATE 15 GM TUBE TP SCH ×2 (09:28→21:31)
[2017-02-23] MEDS: CHLORHEXIDINE GLUCONATE 15 ML UDC MM SCH ×2 (09:28→17:54)
[2017-02-23] MEDS: OCUSOFT LID SCRUB TP SCH ×2 (09:28→17:54)
[2017-02-23] MEDS: HYDROGEN PEROXIDE 480 ML BOTTLE TP SCH ×2 (09:28→21:31)
[2017-02-23] MEDS: Z GUARD REMEDY 4 OZ OINT TP SCH ×3 (09:29→21:31)
--- NOTE | 2017-02-23 16:00 | NUR ---
Pt was noted with excoriation on the right groin/upper thigh area. Received order to apply Z-guard cream q shift and PRN for 14 days. Notified pt's daughter. Addendum: 02/23/17 at 1658 by NABOR GARCIA RN Pt was seen scratching the area. Small amount of bleeding noted.
[2017-02-23 19:59] VITALS: BP 110/66
[2017-02-23] MEDS: ASCORBIC ACID 500 MG TABLET GT SCH (21:31)
[2017-02-23] MEDS: MULTIVIT, IRON, MIN NO. 8, FA 1 TAB GT SCH (21:31)
[2017-02-23] MEDS: PROSOURCE / PROSTAT (PYXIS) 30 ML UDC GT SCH (21:31)
[2017-02-24] MEDS: SUCRALFATE 1 G/10 ML UDC GT SCH ×6 (01:00→21:44)
[2017-02-24] MEDS: ALBUTEROL FS 2.5 MG/0.5 ML VIAL.NEB NEB SCH ×4 (02:00→19:15)
[2017-02-24] MEDS: IPRATROPIUM NEB FS 0.5 MG/2.5 ML AMPUL.NEB IH SCH ×4 (02:00→19:15)
[2017-02-24] MEDS: OMEPRAZOLE 20 MG CAPSULE.DR GT SCH (05:27)
[2017-02-24] MEDS: POLYVINYL ALCOHOL 15 ML BOTTLE EACHEYE SCH ×3 (05:27→21:44)
[2017-02-24 08:17] VITALS: BP 111/68
[2017-02-24] MEDS: OCUSOFT LID SCRUB TP SCH ×2 (09:00→16:31)
[2017-02-24] MEDS: CHLORHEXIDINE GLUCONATE 15 ML UDC MM SCH ×2 (09:00→16:31)
[2017-02-24] MEDS: PEPCID GT SCH ×2 (09:38→21:44)
[2017-02-24] MEDS: MINERAL OIL/PETROLATUM,WHITE 454 GM JAR TP SCH ×2 (09:39→21:44)
[2017-02-24] MEDS: Z GUARD REMEDY 4 OZ OINT TP SCH ×4 (09:39→21:44)
[2017-02-24] MEDS: HYDROGEN PEROXIDE 480 ML BOTTLE TP SCH ×2 (09:39→21:44)
[2017-02-24] MEDS: CLOTRIMAZOLE/BETAMETASONE DIPROPIONATE 15 GM TUBE TP SCH ×2 (09:39→21:44)
--- NOTE | 2017-02-24 15:34 | NUR ---
SW met with resident who appeared to be in good spirits. He was occupied with a toy that his sister had bought for him. He was also doing hand and arm exercises on his own and remained watching television.
[2017-02-24] MEDS: FIBERSOURCE HN 1,000 ML BOTTLE GT PRN (16:31)
[2017-02-24 20:04] VITALS: BP 112/62
[2017-02-24] MEDS: PROSOURCE / PROSTAT (PYXIS) 30 ML UDC GT SCH (21:44)
[2017-02-24] MEDS: MULTIVIT, IRON, MIN NO. 8, FA 1 TAB GT SCH (21:44)
[2017-02-24] MEDS: ASCORBIC ACID 500 MG TABLET GT SCH (21:44)
[2017-02-25] MEDS: SUCRALFATE 1 G/10 ML UDC GT SCH ×6 (01:00→21:26)
[2017-02-25] MEDS: ALBUTEROL FS 2.5 MG/0.5 ML VIAL.NEB NEB SCH ×4 (01:31→20:15)
[2017-02-25] MEDS: IPRATROPIUM NEB FS 0.5 MG/2.5 ML AMPUL.NEB IH SCH ×4 (01:31→20:15)
[2017-02-25] MEDS: POLYVINYL ALCOHOL 15 ML BOTTLE EACHEYE SCH ×3 (05:27→21:26)
[2017-02-25] MEDS: OMEPRAZOLE 20 MG CAPSULE.DR GT SCH (05:27)
[2017-02-25 07:52] VITALS: BP 110/62
[2017-02-25] MEDS: CHLORHEXIDINE GLUCONATE 15 ML UDC MM SCH ×2 (08:57→17:00)
[2017-02-25] MEDS: HYDROGEN PEROXIDE 480 ML BOTTLE TP SCH ×2 (09:00→21:26)
[2017-02-25] MEDS: OCUSOFT LID SCRUB TP SCH ×2 (09:00→17:00)
[2017-02-25] MEDS: MINERAL OIL/PETROLATUM,WHITE 454 GM JAR TP SCH ×2 (09:00→21:26)
[2017-02-25] MEDS: Z GUARD REMEDY 4 OZ OINT TP SCH ×4 (09:00→21:26)
[2017-02-25] MEDS: PEPCID GT SCH ×2 (09:09→21:26)
[2017-02-25] MEDS: CLOTRIMAZOLE/BETAMETASONE DIPROPIONATE 15 GM TUBE TP SCH ×2 (09:10→21:26)
[2017-02-25] MEDS: FIBERSOURCE HN 1,000 ML BOTTLE GT PRN (09:13)
[2017-02-25 21:22] VITALS: BP 106/76
[2017-02-25] MEDS: PROSOURCE / PROSTAT (PYXIS) 30 ML UDC GT SCH (21:26)
[2017-02-25] MEDS: ASCORBIC ACID 500 MG TABLET GT SCH (21:26)
[2017-02-25] MEDS: MULTIVIT, IRON, MIN NO. 8, FA 1 TAB GT SCH (21:26)
[2017-02-26] MEDS: ALBUTEROL FS 2.5 MG/0.5 ML VIAL.NEB NEB SCH ×4 (01:00→19:53)
[2017-02-26] MEDS: IPRATROPIUM NEB FS 0.5 MG/2.5 ML AMPUL.NEB IH SCH ×4 (01:00→19:53)
[2017-02-26] MEDS: SUCRALFATE 1 G/10 ML UDC GT SCH ×6 (05:26→20:58)
[2017-02-26] MEDS: OMEPRAZOLE 20 MG CAPSULE.DR GT SCH (05:26)
[2017-02-26] MEDS: POLYVINYL ALCOHOL 15 ML BOTTLE EACHEYE SCH ×3 (05:26→20:58)
[2017-02-26 07:54] VITALS: BP 100/74
[2017-02-26] MEDS: OCUSOFT LID SCRUB TP SCH ×2 (08:29→17:00)
[2017-02-26] MEDS: PEPCID GT SCH ×2 (08:29→20:58)
[2017-02-26] MEDS: CHLORHEXIDINE GLUCONATE 15 ML UDC MM SCH ×2 (09:42→17:00)
[2017-02-26] MEDS: MINERAL OIL/PETROLATUM,WHITE 454 GM JAR TP SCH ×2 (09:42→20:58)
[2017-02-26] MEDS: CLOTRIMAZOLE/BETAMETASONE DIPROPIONATE 15 GM TUBE TP SCH ×2 (09:42→20:58)
[2017-02-26] MEDS: HYDROGEN PEROXIDE 480 ML BOTTLE TP SCH ×2 (09:42→20:58)
[2017-02-26] MEDS: Z GUARD REMEDY 4 OZ OINT TP SCH ×4 (09:42→20:58)
--- NOTE | 2017-02-26 11:25 | NUR ---
Social Service Section of [employer] (2nd quarter) completed. Resident is alert x2 but has a difficult time communicating. He is able to convey his needs by mouthing words and responding to yes or no questions. His dtr Olivia is involved in his care but she does not visit often. Sister Elizabeth is also involved but she lives in [place]. She calls often to speak with the resident and sends him care packages. She feels that due to resident's current medical condition, he will be a resident of [facility] for the long-term. Discharge to a lower level of care when medically appropriate.
[2017-02-26] MEDS: FIBERSOURCE HN 1,000 ML BOTTLE GT PRN ×2 (18:02)
[2017-02-26 19:44] VITALS: BP 130/77
[2017-02-26] MEDS: PROSOURCE / PROSTAT (PYXIS) 30 ML UDC GT SCH (20:58)
[2017-02-26] MEDS: MULTIVIT, IRON, MIN NO. 8, FA 1 TAB GT SCH (20:58)
[2017-02-26] MEDS: ASCORBIC ACID 500 MG TABLET GT SCH (20:58)
[2017-02-27] MEDS: SUCRALFATE 1 G/10 ML UDC GT SCH ×6 (01:00→21:20)
[2017-02-27] MEDS: IPRATROPIUM NEB FS 0.5 MG/2.5 ML AMPUL.NEB IH SCH ×4 (02:01→20:29)
[2017-02-27] MEDS: ALBUTEROL FS 2.5 MG/0.5 ML VIAL.NEB NEB SCH ×4 (02:01→20:29)
[2017-02-27] MEDS: FIBERSOURCE HN 1,000 ML BOTTLE GT PRN ×2 (05:50→21:22)
[2017-02-27] MEDS: OMEPRAZOLE 20 MG CAPSULE.DR GT SCH (05:50)
[2017-02-27] MEDS: POLYVINYL ALCOHOL 15 ML BOTTLE EACHEYE SCH ×3 (05:50→21:20)
[2017-02-27 07:42] VITALS: BP 110/78
[2017-02-27] MEDS: HYDROGEN PEROXIDE 480 ML BOTTLE TP SCH ×2 (08:50→21:21)
[2017-02-27] MEDS: OCUSOFT LID SCRUB TP SCH ×2 (08:50→17:29)
[2017-02-27] MEDS: Z GUARD REMEDY 4 OZ OINT TP SCH ×4 (08:50→21:21)
[2017-02-27] MEDS: CHLORHEXIDINE GLUCONATE 15 ML UDC MM SCH ×2 (08:50→17:29)
[2017-02-27] MEDS: MINERAL OIL/PETROLATUM,WHITE 454 GM JAR TP SCH ×2 (08:50→21:21)
[2017-02-27] MEDS: PEPCID GT SCH ×2 (08:50→21:20)
[2017-02-27] MEDS: CLOTRIMAZOLE/BETAMETASONE DIPROPIONATE 15 GM TUBE TP SCH ×2 (08:50→21:21)
[2017-02-27 19:47] VITALS: BP 104/68
[2017-02-27] MEDS: PROSOURCE / PROSTAT (PYXIS) 30 ML UDC GT SCH (21:20)
[2017-02-27] MEDS: MULTIVIT, IRON, MIN NO. 8, FA 1 TAB GT SCH (21:21)
[2017-02-27] MEDS: ASCORBIC ACID 500 MG TABLET GT SCH (21:21)
[2017-02-28] MEDS: SUCRALFATE 1 G/10 ML UDC GT SCH ×6 (00:22→21:12)
[2017-02-28] MEDS: IPRATROPIUM NEB FS 0.5 MG/2.5 ML AMPUL.NEB IH SCH ×4 (02:14→20:07)
[2017-02-28] MEDS: ALBUTEROL FS 2.5 MG/0.5 ML VIAL.NEB NEB SCH ×4 (02:15→20:07)
[2017-02-28] MEDS: OMEPRAZOLE 20 MG CAPSULE.DR GT SCH (05:37)
[2017-02-28] MEDS: POLYVINYL ALCOHOL 15 ML BOTTLE EACHEYE SCH ×3 (05:37→21:12)
[2017-02-28 07:38] VITALS: BP 113/79
[2017-02-28] MEDS: ZINC OXIDE 30 GM TUBE TP SCH ×3 (08:36→21:13)
[2017-02-28] MEDS: PEPCID GT SCH ×2 (08:55→21:12)
[2017-02-28] MEDS: CHLORHEXIDINE GLUCONATE 15 ML UDC MM SCH ×2 (08:55→17:06)
[2017-02-28] MEDS: CLOTRIMAZOLE/BETAMETASONE DIPROPIONATE 15 GM TUBE TP SCH ×2 (08:56→21:12)
[2017-02-28] MEDS: Z GUARD REMEDY 4 OZ OINT TP SCH ×4 (08:56→21:13)
[2017-02-28] MEDS: MINERAL OIL/PETROLATUM,WHITE 454 GM JAR TP SCH ×2 (08:56→21:12)
[2017-02-28] MEDS: OCUSOFT LID SCRUB TP SCH ×2 (08:56→17:06)
[2017-02-28] MEDS: HYDROGEN PEROXIDE 480 ML BOTTLE TP SCH ×2 (08:56→21:12)
[2017-02-28] MEDS: FIBERSOURCE HN 1,000 ML BOTTLE GT PRN (17:06)
[2017-02-28 19:37] VITALS: BP 107/54
[2017-02-28] MEDS: PROSOURCE / PROSTAT (PYXIS) 30 ML UDC GT SCH (21:12)
[2017-02-28] MEDS: MULTIVIT, IRON, MIN NO. 8, FA 1 TAB GT SCH (21:12)
[2017-02-28] MEDS: ASCORBIC ACID 500 MG TABLET GT SCH (21:12)
[2017-03-01] MEDS: SUCRALFATE 1 G/10 ML UDC GT SCH ×6 (00:27→20:47)
[2017-03-01] MEDS: ALBUTEROL FS 2.5 MG/0.5 ML VIAL.NEB NEB SCH ×4 (00:55→19:46)
[2017-03-01] MEDS: IPRATROPIUM NEB FS 0.5 MG/2.5 ML AMPUL.NEB IH SCH ×4 (00:55→19:46)
[2017-03-01] MEDS: OMEPRAZOLE 20 MG CAPSULE.DR GT SCH (05:28)
[2017-03-01] MEDS: POLYVINYL ALCOHOL 15 ML BOTTLE EACHEYE SCH ×3 (05:28→20:47)
[2017-03-01] MEDS: FIBERSOURCE HN 1,000 ML BOTTLE GT PRN ×2 (05:28→21:14)
[2017-03-01 07:35] VITALS: BP 106/69
[2017-03-01] MEDS: ZINC OXIDE 30 GM TUBE TP SCH ×2 (09:58→20:48)
[2017-03-01] MEDS: CHLORHEXIDINE GLUCONATE 15 ML UDC MM SCH ×2 (09:58→16:40)
[2017-03-01] MEDS: PEPCID GT SCH ×2 (09:58→20:47)
[2017-03-01] MEDS: Z GUARD REMEDY 4 OZ OINT TP SCH ×4 (09:58→20:48)
[2017-03-01] MEDS: OCUSOFT LID SCRUB TP SCH ×2 (09:58→16:40)
[2017-03-01] MEDS: MINERAL OIL/PETROLATUM,WHITE 454 GM JAR TP SCH ×2 (09:58→20:48)
[2017-03-01] MEDS: HYDROGEN PEROXIDE 480 ML BOTTLE TP SCH ×2 (09:58→20:48)
[2017-03-01 19:31] VITALS: BP 115/68
[2017-03-01] MEDS: MULTIVIT, IRON, MIN NO. 8, FA 1 TAB GT SCH (20:47)
[2017-03-01] MEDS: PROSOURCE / PROSTAT (PYXIS) 30 ML UDC GT SCH (20:47)
[2017-03-01] MEDS: ASCORBIC ACID 500 MG TABLET GT SCH (20:48)
[2017-03-02] MEDS: SUCRALFATE 1 G/10 ML UDC GT SCH ×6 (00:41→20:52)
[2017-03-02] MEDS: IPRATROPIUM NEB FS 0.5 MG/2.5 ML AMPUL.NEB IH SCH ×4 (02:04→19:29)
[2017-03-02] MEDS: ALBUTEROL FS 2.5 MG/0.5 ML VIAL.NEB NEB SCH ×4 (02:04→19:31)
[2017-03-02] MEDS: POLYVINYL ALCOHOL 15 ML BOTTLE EACHEYE SCH ×3 (05:22→20:52)
[2017-03-02] MEDS: OMEPRAZOLE 20 MG CAPSULE.DR GT SCH (05:22)
[2017-03-02 07:58] VITALS: BP 121/66
[2017-03-02] MEDS: HYDROGEN PEROXIDE 480 ML BOTTLE TP SCH ×2 (09:00→20:52)
[2017-03-02] MEDS: Z GUARD REMEDY 4 OZ OINT TP SCH ×4 (09:00→20:53)
[2017-03-02] MEDS: ZINC OXIDE 30 GM TUBE TP SCH ×2 (09:00→20:53)
[2017-03-02] MEDS: OCUSOFT LID SCRUB TP SCH ×2 (09:00→17:00)
[2017-03-02] MEDS: MINERAL OIL/PETROLATUM,WHITE 454 GM JAR TP SCH ×2 (09:20→20:52)
[2017-03-02] MEDS: CHLORHEXIDINE GLUCONATE 15 ML UDC MM SCH ×2 (09:20→17:12)
[2017-03-02] MEDS: PEPCID GT SCH ×2 (09:20→20:52)
[2017-03-02] MEDS: FIBERSOURCE HN 1,000 ML BOTTLE GT PRN (13:10)
--- NOTE | 2017-03-02 16:45 | NUR ---
Received order from RADHAMES Ayala for GI consult for pt's GT site granulation tissue. Notified Dr. Sebastian. Addendum: 03/03/17 at 1100 by NABOR GARCIA RN RADHAMES Ayala ordered speech therapy for PMV use. Pt tries to speak and gets frustrated when he has difficulty communicating.
--- NOTE | 2017-03-02 18:43 | NUR ---
Pt noted with right posterior upper thigh excoriation. Received order to apply triple antibiotic ointment, cover with Mepilex q shift and PRN for 14 days. Also received wound consult.
[2017-03-02 19:54] VITALS: BP 127/79
[2017-03-02] MEDS: ASCORBIC ACID 500 MG TABLET GT SCH (20:52)
[2017-03-02] MEDS: PROSOURCE / PROSTAT (PYXIS) 30 ML UDC GT SCH (20:52)
[2017-03-02] MEDS: MULTIVIT, IRON, MIN NO. 8, FA 1 TAB GT SCH (20:52)
[2017-03-02] MEDS: NEOMY SULF/BACITRAC ZN/POLY 15 GM TUBE TP SCH (20:52)
[2017-03-03] MEDS: SUCRALFATE 1 G/10 ML UDC GT SCH ×6 (00:52→21:02)
[2017-03-03] MEDS: ALBUTEROL FS 2.5 MG/0.5 ML VIAL.NEB NEB SCH ×4 (01:44→20:15)
[2017-03-03] MEDS: IPRATROPIUM NEB FS 0.5 MG/2.5 ML AMPUL.NEB IH SCH ×4 (01:44→20:15)
[2017-03-03] MEDS: OMEPRAZOLE 20 MG CAPSULE.DR GT SCH (05:31)
[2017-03-03] MEDS: POLYVINYL ALCOHOL 15 ML BOTTLE EACHEYE SCH ×3 (05:31→21:02)
[2017-03-03] MEDS: FIBERSOURCE HN 1,000 ML BOTTLE GT PRN ×2 (06:05→21:03)
[2017-03-03 08:36] VITALS: BP 124/92
--- NOTE | 2017-03-03 08:40 | NUR ---
Pt was seen by wound nurse Olivia. Received order to DC treatment for right posterior upper thigh excoriation. Treatment was changed to Lotrimin, follow with Z-guard q shift for 14 days for right posterior upper thigh rash.
[2017-03-03] MEDS: MINERAL OIL/PETROLATUM,WHITE 454 GM JAR TP SCH ×2 (09:00→21:02)
[2017-03-03] MEDS: NEOMY SULF/BACITRAC ZN/POLY 15 GM TUBE TP SCH ×2 (09:00→21:03)
[2017-03-03] MEDS: Z GUARD REMEDY 4 OZ OINT TP SCH ×5 (09:00→21:03)
[2017-03-03] MEDS: HYDROGEN PEROXIDE 480 ML BOTTLE TP SCH ×2 (09:00→21:03)
[2017-03-03] MEDS: ZINC OXIDE 30 GM TUBE TP SCH ×2 (09:00→21:03)
--- NOTE | 2017-03-03 09:17 | NUR ---
WOUND CARE CONSULT: PT SEEN FOR RT POSTERIOR UPPER THIGH. RT UPPER THIGH NOTED TO HAVE RED RASH. RECOMMENDATIONS MADE AND DISCUSSED WITH NURSING STAFF FOR LOTRIMIN CREAM FOLLOWED BY Z GUARD. WILL SEE PRN. PT IS INCONTINENT. ALL SKIN PROTECTION MEASURES IN PLACE INCLUDING FIRST STEP MATTRESS. MD IN AGREEMENT WITH PLAN OF CARE.
[2017-03-03] MEDS: CHLORHEXIDINE GLUCONATE 15 ML UDC MM SCH ×2 (09:23→17:26)
[2017-03-03] MEDS: OCUSOFT LID SCRUB TP SCH ×2 (09:23→17:26)
[2017-03-03] MEDS: PEPCID GT SCH ×2 (09:23→21:02)
--- NOTE | 2017-03-03 10:37 | NUR ---
ASSISTED SPEECH THERAPIST WITH PMV TRIAL. TOLERATED WELL. PLACED BACK ON VENT WITHOUT PMV AND CUFF INFLATED. NO DISTRESS NOTED. NURSE AWARE.
--- NOTE | 2017-03-03 10:45 | NUR ---
Seen by [facility] for PMV use. According to [facility], pt tolerated PMV well. She said she will see pt three times a week for speech therapy.
--- NOTE | 2017-03-03 11:27 | NUR ---
Received order for pt to use PMV under RT bolt sorter supervision. ST All[facility] said she will see pt twice a week instead of thrice a week. Notified Olivia. Addendum: 03/03/17 at 1130 by NABOR GARCIA RN Olivia said she will try to visit pt today.
--- NOTE | 2017-03-03 14:58 | NUR ---
Resident's daughter Olivia Olivo visited the resident. She was given the resident's mail and was able to look through it. She asked the older adult social work specialist to shred some of what she received. Resident happy to see his daughter and was holding her hand.
[2017-03-03 19:34] VITALS: BP 106/65
[2017-03-03] MEDS: MULTIVIT, IRON, MIN NO. 8, FA 1 TAB GT SCH (21:02)
[2017-03-03] MEDS: PROSOURCE / PROSTAT (PYXIS) 30 ML UDC GT SCH (21:02)
[2017-03-03] MEDS: ASCORBIC ACID 500 MG TABLET GT SCH (21:02)
[2017-03-03] MEDS: CLOTRIMAZOLE 1% 15 GM TUBE TP SCH (21:03)
[2017-03-04] MEDS: SUCRALFATE 1 G/10 ML UDC GT SCH ×6 (00:38→21:23)
[2017-03-04] MEDS: ALBUTEROL FS 2.5 MG/0.5 ML VIAL.NEB NEB SCH ×4 (01:53→19:55)
[2017-03-04] MEDS: IPRATROPIUM NEB FS 0.5 MG/2.5 ML AMPUL.NEB IH SCH ×4 (01:53→19:55)
[2017-03-04] MEDS: POLYVINYL ALCOHOL 15 ML BOTTLE EACHEYE SCH ×3 (05:22→21:23)
[2017-03-04] MEDS: OMEPRAZOLE 20 MG CAPSULE.DR GT SCH (05:29)
[2017-03-04 08:22] VITALS: BP 164/89
[2017-03-04] MEDS: ZINC OXIDE 30 GM TUBE TP SCH ×2 (09:00→21:24)
[2017-03-04] MEDS: NEOMY SULF/BACITRAC ZN/POLY 15 GM TUBE TP SCH ×2 (09:00→21:24)
[2017-03-04] MEDS: Z GUARD REMEDY 4 OZ OINT TP SCH ×6 (09:00→21:24)
[2017-03-04] MEDS: MINERAL OIL/PETROLATUM,WHITE 454 GM JAR TP SCH ×2 (09:29→21:23)
[2017-03-04] MEDS: CHLORHEXIDINE GLUCONATE 15 ML UDC MM SCH ×2 (09:29→17:00)
[2017-03-04] MEDS: CLOTRIMAZOLE 1% 15 GM TUBE TP SCH ×2 (09:29→21:23)
[2017-03-04] MEDS: HYDROGEN PEROXIDE 480 ML BOTTLE TP SCH ×2 (09:29→21:23)
[2017-03-04] MEDS: OCUSOFT LID SCRUB TP SCH ×2 (09:29→17:00)
[2017-03-04] MEDS: PEPCID GT SCH ×2 (09:29→21:23)
[2017-03-04] MEDS: FIBERSOURCE HN 1,000 ML BOTTLE GT PRN (17:06)
[2017-03-04 20:14] VITALS: BP 127/70
[2017-03-04] MEDS: ASCORBIC ACID 500 MG TABLET GT SCH (21:23)
[2017-03-04] MEDS: PROSOURCE / PROSTAT (PYXIS) 30 ML UDC GT SCH (21:23)
[2017-03-04] MEDS: MULTIVIT, IRON, MIN NO. 8, FA 1 TAB GT SCH (21:23)
[2017-03-05] MEDS: SUCRALFATE 1 G/10 ML UDC GT SCH ×6 (00:39→21:50)
[2017-03-05] MEDS: IPRATROPIUM NEB FS 0.5 MG/2.5 ML AMPUL.NEB IH SCH ×4 (02:04→19:34)
[2017-03-05] MEDS: ALBUTEROL FS 2.5 MG/0.5 ML VIAL.NEB NEB SCH ×4 (02:04→19:34)
[2017-03-05] MEDS: OMEPRAZOLE 20 MG CAPSULE.DR GT SCH (05:33)
[2017-03-05] MEDS: POLYVINYL ALCOHOL 15 ML BOTTLE EACHEYE SCH ×3 (05:33→21:50)
[2017-03-05 07:26] VITALS: BP 128/71
[2017-03-05] MEDS: MINERAL OIL/PETROLATUM,WHITE 454 GM JAR TP SCH ×2 (09:00→21:50)
[2017-03-05] MEDS: NEOMY SULF/BACITRAC ZN/POLY 15 GM TUBE TP SCH ×2 (09:00→21:50)
[2017-03-05] MEDS: OCUSOFT LID SCRUB TP SCH ×2 (09:00→17:24)
[2017-03-05] MEDS: ZINC OXIDE 30 GM TUBE TP SCH ×2 (09:00→21:50)
[2017-03-05] MEDS: PEPCID GT SCH ×2 (09:00→21:50)
[2017-03-05] MEDS: Z GUARD REMEDY 4 OZ OINT TP SCH ×6 (09:00→21:50)
[2017-03-05] MEDS: HYDROGEN PEROXIDE 480 ML BOTTLE TP SCH ×2 (09:00→21:50)
[2017-03-05] MEDS: CLOTRIMAZOLE 1% 15 GM TUBE TP SCH ×2 (09:00→21:50)
[2017-03-05] MEDS: CHLORHEXIDINE GLUCONATE 15 ML UDC MM SCH ×2 (09:00→17:24)
--- NOTE | 2017-03-05 15:40 | NUR ---
utility worker roller shop received a call from the resident's daughter Olivia Olivo. She stated she was upset because she was never appointed the payee by the social security office, even after they ran a background check on her, had her complete the required paperwork, and the worker there told her that the process was completed and she would be the payee. She stated "they told me to my face that I was the payee and now I find out that I was not even appointed." She states that she has to go back to the social security office and that resident has also not been receiving any checks. She stated that she put down the hospital address as that is where the resident is residing. No SSI checks have arrived. She stated she will go back to the social security office tomorrow to get this situation strengthened out but stated that she was real upset and would speak to them about it.
[2017-03-05] MEDS: MULTIVIT, IRON, MIN NO. 8, FA 1 TAB GT SCH (21:50)
[2017-03-05] MEDS: PROSOURCE / PROSTAT (PYXIS) 30 ML UDC GT SCH (21:50)
[2017-03-05] MEDS: ASCORBIC ACID 500 MG TABLET GT SCH (21:50)
[2017-03-05 22:26] VITALS: BP 110/59
[2017-03-06] MEDS: SUCRALFATE 1 G/10 ML UDC GT SCH ×6 (00:37→21:02)
[2017-03-06] MEDS: IPRATROPIUM NEB FS 0.5 MG/2.5 ML AMPUL.NEB IH SCH ×4 (00:47→20:23)
[2017-03-06] MEDS: ALBUTEROL FS 2.5 MG/0.5 ML VIAL.NEB NEB SCH ×4 (00:47→20:23)
[2017-03-06] MEDS: OMEPRAZOLE 20 MG CAPSULE.DR GT SCH (05:11)
[2017-03-06] MEDS: FIBERSOURCE HN 1,000 ML BOTTLE GT PRN ×2 (05:11→21:02)
[2017-03-06] MEDS: POLYVINYL ALCOHOL 15 ML BOTTLE EACHEYE SCH ×3 (05:11→21:02)
[2017-03-06 08:42] VITALS: BP 118/67
[2017-03-06] MEDS: OCUSOFT LID SCRUB TP SCH ×2 (09:00→17:45)
[2017-03-06] MEDS: NEOMY SULF/BACITRAC ZN/POLY 15 GM TUBE TP SCH ×2 (09:00→21:02)
[2017-03-06] MEDS: PEPCID GT SCH ×2 (09:00→21:02)
[2017-03-06] MEDS: CHLORHEXIDINE GLUCONATE 15 ML UDC MM SCH ×2 (09:00→17:45)
[2017-03-06] MEDS: HYDROGEN PEROXIDE 480 ML BOTTLE TP SCH ×2 (09:00→21:01)
[2017-03-06] MEDS: ZINC OXIDE 30 GM TUBE TP SCH ×2 (09:00→21:02)
[2017-03-06] MEDS: Z GUARD REMEDY 4 OZ OINT TP SCH ×6 (09:00→21:02)
[2017-03-06] MEDS: MINERAL OIL/PETROLATUM,WHITE 454 GM JAR TP SCH ×2 (09:00→21:01)
[2017-03-06] MEDS: CLOTRIMAZOLE 1% 15 GM TUBE TP SCH ×2 (09:00→21:01)
[2017-03-06] MEDS: ASCORBIC ACID 500 MG TABLET GT SCH (21:01)
[2017-03-06] MEDS: MULTIVIT, IRON, MIN NO. 8, FA 1 TAB GT SCH (21:01)
[2017-03-06] MEDS: PROSOURCE / PROSTAT (PYXIS) 30 ML UDC GT SCH (21:02)
[2017-03-06 23:15] VITALS: BP 106/66
[2017-03-07] MEDS: SUCRALFATE 1 G/10 ML UDC GT SCH ×6 (01:05→20:57)
[2017-03-07] MEDS: ALBUTEROL FS 2.5 MG/0.5 ML VIAL.NEB NEB SCH ×4 (01:19→20:05)
[2017-03-07] MEDS: IPRATROPIUM NEB FS 0.5 MG/2.5 ML AMPUL.NEB IH SCH ×4 (01:19→20:05)
[2017-03-07] MEDS: OMEPRAZOLE 20 MG CAPSULE.DR GT SCH (05:24)
[2017-03-07] MEDS: POLYVINYL ALCOHOL 15 ML BOTTLE EACHEYE SCH ×3 (05:24→20:57)
[2017-03-07 08:25] VITALS: BP 105/61
[2017-03-07] MEDS: CHLORHEXIDINE GLUCONATE 15 ML UDC MM SCH ×2 (09:00→16:29)
[2017-03-07] MEDS: HYDROGEN PEROXIDE 480 ML BOTTLE TP SCH ×2 (09:00→20:58)
[2017-03-07] MEDS: OCUSOFT LID SCRUB TP SCH ×2 (09:00→16:29)
[2017-03-07] MEDS: MINERAL OIL/PETROLATUM,WHITE 454 GM JAR TP SCH ×2 (09:00→20:57)
[2017-03-07] MEDS: Z GUARD REMEDY 4 OZ OINT TP SCH ×6 (09:00→20:58)
[2017-03-07] MEDS: CLOTRIMAZOLE 1% 15 GM TUBE TP SCH ×2 (09:00→20:58)
[2017-03-07] MEDS: ZINC OXIDE 30 GM TUBE TP SCH ×2 (09:00→20:58)
[2017-03-07] MEDS: NEOMY SULF/BACITRAC ZN/POLY 15 GM TUBE TP SCH ×2 (09:00→20:58)
[2017-03-07] MEDS: PEPCID GT SCH ×2 (09:59→20:57)
[2017-03-07] MEDS ORDERED: ACETAMINOPHEN 325 MG TABLET PO PRN (14:30)
[2017-03-07] MEDS: FIBERSOURCE HN 1,000 ML BOTTLE GT PRN (16:29)
[2017-03-07] MEDS: MULTIVIT, IRON, MIN NO. 8, FA 1 TAB GT SCH (20:57)
[2017-03-07] MEDS: ASCORBIC ACID 500 MG TABLET GT SCH (20:57)
[2017-03-07] MEDS: PROSOURCE / PROSTAT (PYXIS) 30 ML UDC GT SCH (20:57)
[2017-03-07 22:44] VITALS: BP 104/59
[2017-03-08] MEDS: SUCRALFATE 1 G/10 ML UDC GT SCH ×6 (00:10→21:14)
[2017-03-08] MEDS: IPRATROPIUM NEB FS 0.5 MG/2.5 ML AMPUL.NEB IH SCH ×4 (01:43→20:20)
[2017-03-08] MEDS: ALBUTEROL FS 2.5 MG/0.5 ML VIAL.NEB NEB SCH ×4 (01:43→20:20)
[2017-03-08] MEDS: POLYVINYL ALCOHOL 15 ML BOTTLE EACHEYE SCH ×3 (05:00→21:14)
[2017-03-08] MEDS: OMEPRAZOLE 20 MG CAPSULE.DR GT SCH (06:05)
[2017-03-08 07:42] VITALS: BP 102/58
[2017-03-08] MEDS: CHLORHEXIDINE GLUCONATE 15 ML UDC MM SCH ×2 (08:52→17:36)
[2017-03-08] MEDS: PEPCID GT SCH ×2 (08:52→21:14)
[2017-03-08] MEDS: HYDROGEN PEROXIDE 480 ML BOTTLE TP SCH ×2 (08:53→21:14)
[2017-03-08] MEDS: MINERAL OIL/PETROLATUM,WHITE 454 GM JAR TP SCH ×2 (08:53→21:14)
[2017-03-08] MEDS: CLOTRIMAZOLE 1% 15 GM TUBE TP SCH ×2 (08:53→21:14)
[2017-03-08] MEDS: OCUSOFT LID SCRUB TP SCH ×2 (08:53→17:36)
[2017-03-08] MEDS: ZINC OXIDE 30 GM TUBE TP SCH ×2 (08:54→21:15)
[2017-03-08] MEDS: NEOMY SULF/BACITRAC ZN/POLY 15 GM TUBE TP SCH ×2 (08:54→21:15)
[2017-03-08] MEDS: Z GUARD REMEDY 4 OZ OINT TP SCH ×6 (08:54→21:15)
[2017-03-08] MEDS: FIBERSOURCE HN 1,000 ML BOTTLE GT PRN (17:20)
[2017-03-08 20:28] VITALS: BP 104/66
[2017-03-08] MEDS: ASCORBIC ACID 500 MG TABLET GT SCH (21:14)
[2017-03-08] MEDS: MULTIVIT, IRON, MIN NO. 8, FA 1 TAB GT SCH (21:14)
[2017-03-08] MEDS: PROSOURCE / PROSTAT (PYXIS) 30 ML UDC GT SCH (21:14)
[2017-03-09] MEDS: IPRATROPIUM NEB FS 0.5 MG/2.5 ML AMPUL.NEB IH SCH ×4 (01:30→20:22)
[2017-03-09] MEDS: ALBUTEROL FS 2.5 MG/0.5 ML VIAL.NEB NEB SCH ×4 (01:30→20:22)
[2017-03-09] MEDS: OMEPRAZOLE 20 MG CAPSULE.DR GT SCH (05:04)
[2017-03-09] MEDS: POLYVINYL ALCOHOL 15 ML BOTTLE EACHEYE SCH ×3 (05:04→20:15)
[2017-03-09] MEDS: SUCRALFATE 1 G/10 ML UDC GT SCH ×6 (05:04→20:15)
[2017-03-09] MEDS: FIBERSOURCE HN 1,000 ML BOTTLE GT PRN ×2 (05:09→20:16)
[2017-03-09 07:52] VITALS: BP 101/59
[2017-03-09] MEDS: OCUSOFT LID SCRUB TP SCH ×2 (09:00→17:07)
[2017-03-09] MEDS: CHLORHEXIDINE GLUCONATE 15 ML UDC MM SCH ×2 (09:00→17:07)
--- NOTE | 2017-03-09 09:17 | NUR ---
Left a message to Dr. Landrum's office, spoke with Fabian for ENT consult due to difficulty hearing. Awaiting for call back.
[2017-03-09] MEDS: Z GUARD REMEDY 4 OZ OINT TP SCH ×5 (09:18→20:16)
[2017-03-09] MEDS: NEOMY SULF/BACITRAC ZN/POLY 15 GM TUBE TP SCH ×2 (09:18→20:16)
[2017-03-09] MEDS: ZINC OXIDE 30 GM TUBE TP SCH ×2 (09:18→20:16)
[2017-03-09] MEDS: MINERAL OIL/PETROLATUM,WHITE 454 GM JAR TP SCH ×2 (09:18→20:15)
[2017-03-09] MEDS: HYDROGEN PEROXIDE 480 ML BOTTLE TP SCH ×2 (09:18→20:15)
[2017-03-09] MEDS: PEPCID GT SCH ×2 (09:18→20:15)
[2017-03-09] MEDS: CLOTRIMAZOLE 1% 15 GM TUBE TP SCH ×2 (09:18→20:15)
--- NOTE | 2017-03-09 11:00 | NUR ---
Obtain ENT consult with Isidra Ayala NP ID due to hard of hearing.
[2017-03-09 19:49] VITALS: BP 115/80
[2017-03-09] MEDS: ASCORBIC ACID 500 MG TABLET GT SCH (20:15)
[2017-03-09] MEDS: MULTIVIT, IRON, MIN NO. 8, FA 1 TAB GT SCH (20:15)
[2017-03-09] MEDS: PROSOURCE / PROSTAT (PYXIS) 30 ML UDC GT SCH (20:15)
[2017-03-10] MEDS: SUCRALFATE 1 G/10 ML UDC GT SCH ×6 (00:37→21:22)
[2017-03-10] MEDS: ALBUTEROL FS 2.5 MG/0.5 ML VIAL.NEB NEB SCH ×4 (01:31→19:36)
[2017-03-10] MEDS: IPRATROPIUM NEB FS 0.5 MG/2.5 ML AMPUL.NEB IH SCH ×4 (01:31→19:36)
[2017-03-10] MEDS: OMEPRAZOLE 20 MG CAPSULE.DR GT SCH (05:33)
[2017-03-10] MEDS: POLYVINYL ALCOHOL 15 ML BOTTLE EACHEYE SCH ×3 (05:33→21:22)
[2017-03-10] MEDS: OCUSOFT LID SCRUB TP SCH ×2 (09:37→17:00)
[2017-03-10] MEDS: CHLORHEXIDINE GLUCONATE 15 ML UDC MM SCH ×2 (09:37→17:46)
[2017-03-10] MEDS: MINERAL OIL/PETROLATUM,WHITE 454 GM JAR TP SCH ×2 (09:37→21:23)
[2017-03-10] MEDS: PEPCID GT SCH ×2 (09:37→21:23)
[2017-03-10] MEDS: Z GUARD REMEDY 4 OZ OINT TP SCH ×4 (09:38→21:23)
[2017-03-10] MEDS: NEOMY SULF/BACITRAC ZN/POLY 15 GM TUBE TP SCH ×2 (10:30→21:23)
[2017-03-10] MEDS: CLOTRIMAZOLE 1% 15 GM TUBE TP SCH ×2 (10:30→21:23)
[2017-03-10] MEDS: HYDROGEN PEROXIDE 480 ML BOTTLE TP SCH ×2 (10:30→21:23)
[2017-03-10] MEDS: ZINC OXIDE 30 GM TUBE TP SCH ×2 (10:30→21:23)
[2017-03-10] MEDS: FIBERSOURCE HN 1,000 ML BOTTLE GT PRN (12:17)
--- NOTE | 2017-03-10 13:30 | NUR ---
licensing worker received a call from the resident's daughter Olivia Olivo. She stated that she was currently at the social security office to see why the resident's ppwk was not processed correctly, as she is not the resident's payee. She stated that the social media assistant there told her that they will look through the paperwork again to see if anything is missing and that she will keep the social media assistant posted.
[2017-03-10 19:45] VITALS: BP 105/64
[2017-03-10] MEDS: PROSOURCE / PROSTAT (PYXIS) 30 ML UDC GT SCH (21:23)
[2017-03-10] MEDS: ASCORBIC ACID 500 MG TABLET GT SCH (21:23)
[2017-03-10] MEDS: MULTIVIT, IRON, MIN NO. 8, FA 1 TAB GT SCH (21:23)
[2017-03-11] MEDS: SUCRALFATE 1 G/10 ML UDC GT SCH ×6 (00:36→21:24)
[2017-03-11] MEDS: ALBUTEROL FS 2.5 MG/0.5 ML VIAL.NEB NEB SCH ×4 (01:41→20:01)
[2017-03-11] MEDS: IPRATROPIUM NEB FS 0.5 MG/2.5 ML AMPUL.NEB IH SCH ×4 (01:41→20:01)
[2017-03-11] MEDS: OMEPRAZOLE 20 MG CAPSULE.DR GT SCH (05:22)
[2017-03-11] MEDS: POLYVINYL ALCOHOL 15 ML BOTTLE EACHEYE SCH ×3 (05:22→21:24)
[2017-03-11] MEDS: FIBERSOURCE HN 1,000 ML BOTTLE GT PRN ×2 (05:34→21:35)
[2017-03-11 07:52] VITALS: BP 110/65
[2017-03-11] MEDS: Z GUARD REMEDY 4 OZ OINT TP SCH ×4 (09:00→21:25)
[2017-03-11] MEDS: OCUSOFT LID SCRUB TP SCH ×2 (09:00→17:25)
[2017-03-11] MEDS: ZINC OXIDE 30 GM TUBE TP SCH ×2 (09:00→21:25)
[2017-03-11] MEDS: CLOTRIMAZOLE 1% 15 GM TUBE TP SCH ×2 (09:00→21:25)
[2017-03-11] MEDS: CHLORHEXIDINE GLUCONATE 15 ML UDC MM SCH ×2 (09:00→17:25)
[2017-03-11] MEDS: HYDROGEN PEROXIDE 480 ML BOTTLE TP SCH ×2 (09:00→21:25)
[2017-03-11] MEDS: PEPCID GT SCH ×2 (09:00→21:24)
[2017-03-11] MEDS: MINERAL OIL/PETROLATUM,WHITE 454 GM JAR TP SCH ×2 (09:00→21:24)
[2017-03-11] MEDS: NEOMY SULF/BACITRAC ZN/POLY 15 GM TUBE TP SCH ×2 (09:00→21:25)
--- NOTE | 2017-03-11 10:03 | NUR ---
Received a call from Olivia Olivo, resident's daughter, who stated that all of the paperwork was in order and that the [employer] office does not know what happened. Olivia stated that the office was going to re-process all of the paperwork. She stated that she has already passed her background check and will just wait until the SSC office re-sends the paperwork to the hospital.
--- NOTE | 2017-03-11 10:08 | NUR ---
Informed daughter Olivia Olivo that resident will be moved to a different room most likely today. She stated she understood. GONZALO to inform Olivia of what room resident will be transferred to. Addendum: 03/11/17 at 1503 by CAROLINE SÁNCHEZ Informed her that resident was transferred to room 277-1. Addendum: 03/11/17 at 1508 by CAROLINE SÁNCHEZ Notice of room change form was placed into the resident's chart.
[2017-03-11] MEDS: MULTIVIT, IRON, MIN NO. 8, FA 1 TAB GT SCH (21:24)
[2017-03-11] MEDS: ASCORBIC ACID 500 MG TABLET GT SCH (21:24)
[2017-03-11] MEDS: PROSOURCE / PROSTAT (PYXIS) 30 ML UDC GT SCH (21:24)
[2017-03-12 00:05] VITALS: BP 106/68
[2017-03-12] MEDS: SUCRALFATE 1 G/10 ML UDC GT SCH ×6 (00:51→21:02)
[2017-03-12] MEDS: MORPHINE SULFATE 10 MG/5 ML GT PRN (00:52)
[2017-03-12] MEDS: ONDANSETRON 4 MG TAB.RAPDIS GT PRN (00:52)
--- NOTE | 2017-03-12 01:30 | NUR ---
Pt noted with increase yellow thick secretions large amount,patient keep refusing to be suctioned very agitated and mad ,told nurses to go away very uncooperative.Managed to suctioned by holding his hands.WOB noted RT at bedside and gave HHN routine treatment.Pt given Zofran via gt for nausea,had small amount of emesis formula like.HOB elevated.Will continue to monitor.
[2017-03-12] MEDS: ALBUTEROL FS 2.5 MG/0.5 ML VIAL.NEB NEB SCH ×4 (01:32→19:30)
[2017-03-12] MEDS: IPRATROPIUM NEB FS 0.5 MG/2.5 ML AMPUL.NEB IH SCH ×4 (01:32→19:30)
--- NOTE | 2017-03-12 02:30 | NUR ---
Pt calm now,sleeping.O2 sats 98%,RR 21.HOB elevated.Will continue to monitor.
[2017-03-12] MEDS: OMEPRAZOLE 20 MG CAPSULE.DR GT SCH (05:37)
[2017-03-12] MEDS: POLYVINYL ALCOHOL 15 ML BOTTLE EACHEYE SCH ×3 (05:37→21:00)
[2017-03-12 09:00] VITALS: BP 100/69
--- NOTE | 2017-03-12 09:37 | NUR ---
Notified Dr. Reese that pt has increased secretions and was having SOB last night, pt afebrile. T 97.[address] Reese if he wanted to order anything, he said no. No new order. Addendum: 03/12/17 at 0939 by NABOR GARCIA RN Pt not having SOB at this time.
[2017-03-12] MEDS: PEPCID GT SCH ×2 (09:53→21:03)
[2017-03-12] MEDS: OCUSOFT LID SCRUB TP SCH ×2 (09:53→17:09)
[2017-03-12] MEDS: CHLORHEXIDINE GLUCONATE 15 ML UDC MM SCH ×2 (09:53→17:09)
[2017-03-12] MEDS: HYDROGEN PEROXIDE 480 ML BOTTLE TP SCH ×2 (09:53→21:05)
[2017-03-12] MEDS: MINERAL OIL/PETROLATUM,WHITE 454 GM JAR TP SCH ×2 (09:53→21:05)
[2017-03-12] MEDS: CLOTRIMAZOLE 1% 15 GM TUBE TP SCH ×2 (09:54→21:05)
[2017-03-12] MEDS: NEOMY SULF/BACITRAC ZN/POLY 15 GM TUBE TP SCH ×2 (09:54→21:06)
[2017-03-12] MEDS: ZINC OXIDE 30 GM TUBE TP SCH ×2 (09:54→21:06)
[2017-03-12] MEDS: Z GUARD REMEDY 4 OZ OINT TP SCH ×4 (09:54→21:06)
[2017-03-12] MEDS: FIBERSOURCE HN 1,000 ML BOTTLE GT PRN (21:00)
[2017-03-12] MEDS: MULTIVIT, IRON, MIN NO. 8, FA 1 TAB GT SCH (21:04)
[2017-03-12] MEDS: PROSOURCE / PROSTAT (PYXIS) 30 ML UDC GT SCH (21:04)
[2017-03-12] MEDS: ASCORBIC ACID 500 MG TABLET GT SCH (21:05)
[2017-03-13 00:07] VITALS: BP 110/71
[2017-03-13] MEDS: SUCRALFATE 1 G/10 ML UDC GT SCH ×6 (01:37→21:10)
[2017-03-13] MEDS: IPRATROPIUM NEB FS 0.5 MG/2.5 ML AMPUL.NEB IH SCH ×4 (01:50→19:30)
[2017-03-13] MEDS: ALBUTEROL FS 2.5 MG/0.5 ML VIAL.NEB NEB SCH ×4 (01:50→19:30)
[2017-03-13] MEDS: POLYVINYL ALCOHOL 15 ML BOTTLE EACHEYE SCH ×3 (05:00→21:10)
[2017-03-13] MEDS: OMEPRAZOLE 20 MG CAPSULE.DR GT SCH (06:06)
[2017-03-13] MEDS: PEPCID GT SCH ×2 (09:07→21:10)
[2017-03-13] MEDS: ZINC OXIDE 30 GM TUBE TP SCH ×2 (09:08→21:11)
[2017-03-13] MEDS: Z GUARD REMEDY 4 OZ OINT TP SCH ×4 (09:08→21:11)
[2017-03-13] MEDS: HYDROGEN PEROXIDE 480 ML BOTTLE TP SCH ×2 (09:08→21:11)
[2017-03-13] MEDS: MINERAL OIL/PETROLATUM,WHITE 454 GM JAR TP SCH ×2 (09:08→21:11)
[2017-03-13] MEDS: OCUSOFT LID SCRUB TP SCH ×2 (09:08→17:12)
[2017-03-13] MEDS: NEOMY SULF/BACITRAC ZN/POLY 15 GM TUBE TP SCH ×2 (09:08→21:11)
[2017-03-13] MEDS: CLOTRIMAZOLE 1% 15 GM TUBE TP SCH ×2 (09:08→21:11)
[2017-03-13] MEDS: CHLORHEXIDINE GLUCONATE 15 ML UDC MM SCH ×2 (09:08→17:12)
--- NOTE | 2017-03-13 09:30 | NUR ---
Seen and examined by notified that resident has increased respiratory rate with O2 sat98% .no elevated temperature.Got new order for C XRAY. noted and carried out.continue to monitor.
[2017-03-13] MEDS: MORPHINE SULFATE 10 MG/5 ML GT PRN ×3 (10:15→19:01)
--- NOTE | 2017-03-13 11:00 | NUR ---
Relayed result of C XRAY to .got new order for lasix 40mg via GT X 3 days.
--- NOTE | 2017-03-13 12:00 | NUR ---
Seen and examined by FLOW COORDINATOR Isidra ,got new order for lasix 40mg IV X1 now and continue with lasix via GT 03/14 and 03/15.call made to pharmacy [facility].spoke to jose.got authorization to take it from [facility].continue to monitor.still has episodes of increased respiratory rate.
[2017-03-13] MEDS: FIBERSOURCE HN 1,000 ML BOTTLE GT PRN (12:04)
[2017-03-13] MEDS ORDERED: FUROSEMIDE 40 MG TABLET GT SCH (12:30)
[2017-03-13] MEDS ORDERED: FUROSEMIDE 40 MG TABLET GT ONE (12:30)
--- NOTE | 2017-03-13 15:00 | NUR ---
Resident has another episode of increased respiratory rate.relayed C Xay result to and .got new order for ABG from .noted and carried out.resident is alert oriented .continue to monitor.
--- NOTE | 2017-03-13 15:20 | NUR ---
Relayed ABG result to .got an order for increase tidal volume by 50ml.noted and carried out.RTmade aware.resident is alert and oriented with O2 sat 98%.continue to monitor.family made aware.spoke to daughter bradly.
[2017-03-13 15:32] LABS: ABG BASE EXCESS 5.1 mmol/L; ABG OXYGEN SATURATION 98.6 % (92.0-98.5); ABG PCO2 57.3 mmHg (35.0-45.0); ABG PH 7.359 (7.350-7.450); ABG PO2 210.5 mmHg (75.0-100.0); AaDO2 445.2 mmHg; COHb 0.3 % (0.5-1.5); MetHb 0.9 % (0.0-1.5); O2Hb 97.4 % (94.0-97.0); PEEP,BG 5 cm H2O; SITE, ABG Right Radial; VENT MODE, BG AC 10 400 +5 100%; VT, ABG 400 mL
[2017-03-13] MEDS ORDERED: ALBUTEROL FS 2.5 MG/0.5 ML VIAL.NEB NEB PRN (20:00)
[2017-03-13] MEDS ORDERED: IPRATROPIUM NEB FS 0.5 MG/2.5 ML AMPUL.NEB NEB PRN (20:00)
[2017-03-13] MEDS: PROSOURCE / PROSTAT (PYXIS) 30 ML UDC GT SCH (21:10)
[2017-03-13] MEDS: ASCORBIC ACID 500 MG TABLET GT SCH (21:10)
[2017-03-13] MEDS: MULTIVIT, IRON, MIN NO. 8, FA 1 TAB GT SCH (21:10)
[2017-03-13 23:25] VITALS: BP 106/70
[2017-03-14] MEDS: SUCRALFATE 1 G/10 ML UDC GT SCH ×6 (00:23→21:12)
[2017-03-14] MEDS: MORPHINE SULFATE 10 MG/5 ML GT PRN ×3 (00:29→22:59)
[2017-03-14] MEDS: IPRATROPIUM NEB FS 0.5 MG/2.5 ML AMPUL.NEB IH SCH ×4 (01:10→20:28)
[2017-03-14] MEDS: ALBUTEROL FS 2.5 MG/0.5 ML VIAL.NEB NEB SCH ×4 (01:10→20:28)
[2017-03-14] MEDS: OMEPRAZOLE 20 MG CAPSULE.DR GT SCH (05:47)
[2017-03-14] MEDS: POLYVINYL ALCOHOL 15 ML BOTTLE EACHEYE SCH ×3 (05:47→21:12)
--- NOTE | 2017-03-14 06:37 | NUR ---
Pt still have episodes of increased respiration and WOB after patient care.Pt always refused to be suctioned and get mad when you do it.Explained to pt that he needs to be suctioned due to a lot of secretions.Kept comfortable.Will continue to monitor.
[2017-03-14 08:11] VITALS: BP 102/68
[2017-03-14] MEDS: MINERAL OIL/PETROLATUM,WHITE 454 GM JAR TP SCH ×2 (09:01→21:12)
[2017-03-14] MEDS: CHLORHEXIDINE GLUCONATE 15 ML UDC MM SCH ×2 (09:01→17:14)
[2017-03-14] MEDS: HYDROGEN PEROXIDE 480 ML BOTTLE TP SCH ×2 (09:01→21:12)
[2017-03-14] MEDS: FUROSEMIDE 40 MG TABLET GT SCH (09:01)
[2017-03-14] MEDS: OCUSOFT LID SCRUB TP SCH ×2 (09:01→17:14)
[2017-03-14] MEDS: PEPCID GT SCH ×2 (09:01→21:12)
[2017-03-14] MEDS: ZINC OXIDE 30 GM TUBE TP SCH ×2 (09:02→21:12)
[2017-03-14] MEDS: NEOMY SULF/BACITRAC ZN/POLY 15 GM TUBE TP SCH ×2 (09:02→21:12)
[2017-03-14] MEDS: CLOTRIMAZOLE 1% 15 GM TUBE TP SCH ×2 (09:02→21:12)
[2017-03-14] MEDS: Z GUARD REMEDY 4 OZ OINT TP SCH ×4 (09:02→21:12)
[2017-03-14] MEDS ORDERED: FUROSEMIDE 40 MG/4 ML VIAL IV ONE (13:00)
[2017-03-14 19:38] VITALS: BP 105/66
[2017-03-14] MEDS: ASCORBIC ACID 500 MG TABLET GT SCH (21:12)
[2017-03-14] MEDS: PROSOURCE / PROSTAT (PYXIS) 30 ML UDC GT SCH (21:12)
[2017-03-14] MEDS: MULTIVIT, IRON, MIN NO. 8, FA 1 TAB GT SCH (21:12)
[2017-03-15] MEDS: SUCRALFATE 1 G/10 ML UDC GT SCH ×6 (00:39→20:36)
[2017-03-15] MEDS: FIBERSOURCE HN 1,000 ML BOTTLE GT PRN (00:40)
[2017-03-15] MEDS: IPRATROPIUM NEB FS 0.5 MG/2.5 ML AMPUL.NEB IH SCH ×4 (03:00→20:07)
[2017-03-15] MEDS: ALBUTEROL FS 2.5 MG/0.5 ML VIAL.NEB NEB SCH ×4 (03:00→20:07)
[2017-03-15] MEDS: POLYVINYL ALCOHOL 15 ML BOTTLE EACHEYE SCH ×4 (05:00→20:36)
[2017-03-15] MEDS: MAGNESIUM HYDROXIDE 30 ML UDC GT PRN (06:24)
[2017-03-15] MEDS: OMEPRAZOLE 20 MG CAPSULE.DR GT SCH (06:24)
[2017-03-15 08:42] VITALS: BP 100/60
[2017-03-15] MEDS: HYDROGEN PEROXIDE 480 ML BOTTLE TP SCH ×2 (09:26→20:36)
[2017-03-15] MEDS: MINERAL OIL/PETROLATUM,WHITE 454 GM JAR TP SCH ×2 (09:26→20:36)
[2017-03-15] MEDS: NEOMY SULF/BACITRAC ZN/POLY 15 GM TUBE TP SCH ×2 (09:26→20:36)
[2017-03-15] MEDS: OCUSOFT LID SCRUB TP SCH ×2 (09:26→17:10)
[2017-03-15] MEDS: CHLORHEXIDINE GLUCONATE 15 ML UDC MM SCH ×2 (09:26→17:10)
[2017-03-15] MEDS: Z GUARD REMEDY 4 OZ OINT TP SCH ×4 (09:26→20:37)
[2017-03-15] MEDS: CLOTRIMAZOLE 1% 15 GM TUBE TP SCH ×2 (09:26→20:36)
[2017-03-15] MEDS: ZINC OXIDE 30 GM TUBE TP SCH ×2 (09:26→20:37)
[2017-03-15] MEDS: FUROSEMIDE 40 MG TABLET GT SCH (09:29)
[2017-03-15] MEDS: PEPCID GT SCH ×2 (09:29→20:36)
--- NOTE | 2017-03-15 12:30 | NUR ---
Notified Dr. Reese that pt was having SOB which improved with a breathing treatment, also notified him that pt has been having some episodes of SOB whenever he gets cleaned and repositioned. No new order.
[2017-03-15 19:44] VITALS: BP 105/67
[2017-03-15] MEDS: ASCORBIC ACID 500 MG TABLET GT SCH (20:36)
[2017-03-15] MEDS: PROSOURCE / PROSTAT (PYXIS) 30 ML UDC GT SCH (20:36)
[2017-03-15] MEDS: MULTIVIT, IRON, MIN NO. 8, FA 1 TAB GT SCH (20:36)
[2017-03-16] MEDS: SUCRALFATE 1 G/10 ML UDC GT SCH ×6 (00:05→21:02)
[2017-03-16] MEDS: ALBUTEROL FS 2.5 MG/0.5 ML VIAL.NEB NEB SCH ×4 (02:15→19:43)
[2017-03-16] MEDS: IPRATROPIUM NEB FS 0.5 MG/2.5 ML AMPUL.NEB IH SCH ×4 (02:15→19:43)
[2017-03-16] MEDS: POLYVINYL ALCOHOL 15 ML BOTTLE EACHEYE SCH ×3 (05:29→21:02)
[2017-03-16] MEDS: OMEPRAZOLE 20 MG CAPSULE.DR GT SCH (05:29)
[2017-03-16] MEDS: FIBERSOURCE HN 1,000 ML BOTTLE GT PRN ×2 (05:29→23:53)
[2017-03-16 08:17] VITALS: BP 113/61
[2017-03-16] MEDS: MINERAL OIL/PETROLATUM,WHITE 454 GM JAR TP SCH ×2 (08:38→21:02)
[2017-03-16] MEDS: PEPCID GT SCH ×2 (08:38→21:02)
[2017-03-16] MEDS: CHLORHEXIDINE GLUCONATE 15 ML UDC MM SCH ×2 (08:38→17:20)
[2017-03-16] MEDS: OCUSOFT LID SCRUB TP SCH ×2 (08:38→17:20)
[2017-03-16] MEDS: MORPHINE SULFATE 10 MG/5 ML GT PRN ×4 (08:58→23:53)
[2017-03-16] MEDS: CLOTRIMAZOLE 1% 15 GM TUBE TP SCH ×2 (09:00→21:03)
[2017-03-16] MEDS: Z GUARD REMEDY 4 OZ OINT TP SCH ×4 (09:00→21:03)
[2017-03-16] MEDS: NEOMY SULF/BACITRAC ZN/POLY 15 GM TUBE TP SCH (09:00)
[2017-03-16] MEDS: HYDROGEN PEROXIDE 480 ML BOTTLE TP SCH ×2 (09:00→21:03)
[2017-03-16] MEDS: ZINC OXIDE 30 GM TUBE TP SCH ×2 (09:00→21:03)
--- NOTE | 2017-03-16 13:00 | NUR ---
Resident noted with an episode of SOB and complaints of chest pain all over the chest.It is not radiating.Vital signs taken.T-98.9,R-34,BP-104/73,P-93 with O2 sat of 98%. made aware ,got an order for EKG and C X RAY.noted and carried out the orders.relayed result of both to .no new order at this time.continue to monitor.
--- NOTE | 2017-03-16 14:00 | NUR ---
Resident has still the tachypnoea made aware .got an order for ABG.noted and carried out the order.made aware the result of ABG to .continue to monitor.
[2017-03-16 15:57] LABS: ABG OXYGEN SATURATION 97.9 % (92.0-98.5); ABG PH 7.468 (7.350-7.450); AaDO2 175.8 mmHg; COHb 0.3 % (0.5-1.5); MetHb 1.3 % (0.0-1.5); O2Hb 96.3 % (94.0-97.0); SITE, ABG Right Radial; VENT MODE, BG ac 10 450 50% +5
[2017-03-16] MEDS ORDERED: VANCOMYCIN 1 GM in IV D5W 250 ML IV ONE (16:00)
--- NOTE | 2017-03-16 16:30 | NUR ---
Got new order from for mucomyst Q8H ART MANAGER,zosyn 3.375g IVPB Q8H and vancomycin 1G X1 now and pharmacy to dose for pneumonia.solumedrol 60 mg IV Q8H.CBC and sputum culture.noted and carried out.family made aware spoke to daughter bradly.she said that she will come and visit the resident tomorrow.IV line inserted in right wrist with good blood return no infiltration .
[2017-03-16] MEDS: PIPERACILLIN /TAZOBACTAM 3.375 G in IV D5W 50 ML IV SCH ×2 (17:00→23:00)
[2017-03-16] MEDS: methylPREDNISolone SOD SUCC 125 MG/2ML VIAL IV SCH ×2 (17:30→21:00)
[2017-03-16] MEDS ORDERED: VANCOMYCIN 1 GM in IV D5W 250ml IV ONE (18:00)
[2017-03-16 19:44] VITALS: BP 106/69
[2017-03-16 20:10] LABS: BASOPHILS % (AUTO) 0.3 % (0.0-2.0); EOSINOPHILS # (AUTO) 0.1 /CMM (0.0-0.7); EOSINOPHILS % (AUTO) 1.6 % (0.0-6.0); HEMATOCRIT 24 % (39-51); HEMOGLOBIN 8.2 g/dL (13.5-17.5); LYMPHOCYTES # (AUTO) 0.5 /CMM (0.8-4.8); LYMPHOCYTES % (AUTO) 7.1 % (20.0-44.0); MEAN CORPUSCULAR HEMOGLOBIN 29 PG (26.0-33.0); MEAN CORPUSCULAR HGB CONC 34 g/dl (31.0-36.0); MEAN CORPUSCULAR VOLUME 85 fL (80-96); MONOCYTES # (AUTO) 0.6 /CMM (0.1-1.30); MONOCYTES % (AUTO) 7.5 % (2.0-12.0); NEUTROPHILS # (AUTO) 6.5 /CMM (1.8-8.9); NEUTROPHILS % (AUTO) 83.5 % (43.0-81.0); PLATELET COUNT (AUTO) 299 /CMM (150-450); RDW COEFFICIENT OF VARIATION 15.4 (11.5-15.0); RED BLOOD CELL COUNT(AUTO) 2.81 MIL/uL (4.5-6.0); WHITE BLOOD COUNT (AUTO) 7.7 K/uL (4.3-11.0)
[2017-03-16] MEDS: ASCORBIC ACID 500 MG TABLET GT SCH (21:02)
[2017-03-16] MEDS: MULTIVIT, IRON, MIN NO. 8, FA 1 TAB GT SCH (21:02)
[2017-03-16] MEDS: PROSOURCE / PROSTAT (PYXIS) 30 ML UDC GT SCH (21:02)
[2017-03-16] MEDS: ACETYLCYSTEINE 10% SOLN 400 MG/4 ML VIAL NEB SCH (23:30)
--- NOTE | 2017-03-16 23:45 | NUR ---
RN NOTES Received new order for vancomycin 750mg IVPB q24hr x 7 days, noted and carried out.
[2017-03-17] MEDS: SUCRALFATE 1 G/10 ML UDC GT SCH ×6 (00:20→21:25)
[2017-03-17] MEDS: IPRATROPIUM NEB FS 0.5 MG/2.5 ML AMPUL.NEB IH SCH ×4 (02:00→19:32)
[2017-03-17] MEDS: ALBUTEROL FS 2.5 MG/0.5 ML VIAL.NEB NEB SCH ×4 (02:00→19:32)
[2017-03-17] MEDS: MORPHINE SULFATE 10 MG/5 ML GT PRN ×2 (04:30→10:02)
[2017-03-17] MEDS: methylPREDNISolone SOD SUCC 125 MG/2ML VIAL IV SCH ×3 (05:00→21:00)
[2017-03-17] MEDS: PIPERACILLIN /TAZOBACTAM 3.375 G in IV D5W 50 ML IV SCH ×3 (05:00→21:00)
[2017-03-17] MEDS: OMEPRAZOLE 20 MG CAPSULE.DR GT SCH (05:56)
[2017-03-17] MEDS: POLYVINYL ALCOHOL 15 ML BOTTLE EACHEYE SCH ×3 (05:56→21:25)
[2017-03-17] MEDS: ACETYLCYSTEINE 10% SOLN 400 MG/4 ML VIAL NEB SCH ×3 (07:09→23:19)
[2017-03-17 07:53] VITALS: BP 101/66
[2017-03-17] MEDS: OCUSOFT LID SCRUB TP SCH ×2 (09:44→16:46)
[2017-03-17] MEDS: HYDROGEN PEROXIDE 480 ML BOTTLE TP SCH ×2 (09:44→21:25)
[2017-03-17] MEDS: CHLORHEXIDINE GLUCONATE 15 ML UDC MM SCH ×2 (09:44→16:46)
[2017-03-17] MEDS: PEPCID GT SCH ×2 (09:44→21:25)
[2017-03-17] MEDS: MINERAL OIL/PETROLATUM,WHITE 454 GM JAR TP SCH ×2 (09:44→21:25)
[2017-03-17] MEDS: CLOTRIMAZOLE 1% 15 GM TUBE TP SCH (09:45)
[2017-03-17] MEDS: ZINC OXIDE 30 GM TUBE TP SCH ×2 (09:45→21:25)
[2017-03-17] MEDS: Z GUARD REMEDY 4 OZ OINT TP SCH ×3 (09:45→21:25)
--- NOTE | 2017-03-17 13:48 | NUR ---
Medication IV solumedrol was not available from [facility]Requested from [facility] pharmacy ,got medication and administered.
--- NOTE | 2017-03-17 15:00 | NUR ---
Resident is awake and comfortable.respiratory rate is 21.not in distress.continue to monitor.
[2017-03-17] MEDS ORDERED: VANCOMYCIN HCL 0.75 GM in IV D5W 250 ML IV SCH (18:00)
[2017-03-17 20:09] VITALS: BP 103/59
[2017-03-17] MEDS: MULTIVIT, IRON, MIN NO. 8, FA 1 TAB GT SCH (21:25)
[2017-03-17] MEDS: PROSOURCE / PROSTAT (PYXIS) 30 ML UDC GT SCH (21:25)
[2017-03-17] MEDS: ASCORBIC ACID 500 MG TABLET GT SCH (21:25)
[2017-03-18] MEDS: SUCRALFATE 1 G/10 ML UDC GT SCH ×6 (00:29→21:31)
[2017-03-18] MEDS: ALBUTEROL FS 2.5 MG/0.5 ML VIAL.NEB NEB SCH ×4 (01:47→19:19)
[2017-03-18] MEDS: IPRATROPIUM NEB FS 0.5 MG/2.5 ML AMPUL.NEB IH SCH ×4 (01:47→19:19)
[2017-03-18] MEDS: methylPREDNISolone SOD SUCC 125 MG/2ML VIAL IV SCH ×3 (05:04→21:58)
[2017-03-18] MEDS: PIPERACILLIN /TAZOBACTAM 3.375 G in IV D5W 50 ML IV SCH ×3 (05:04→21:58)
[2017-03-18] MEDS: POLYVINYL ALCOHOL 15 ML BOTTLE EACHEYE SCH ×3 (05:38→21:30)
[2017-03-18] MEDS: OMEPRAZOLE 20 MG CAPSULE.DR GT SCH (05:38)
[2017-03-18] MEDS: ACETYLCYSTEINE 10% SOLN 400 MG/4 ML VIAL NEB SCH ×2 (07:47→14:30)
[2017-03-18 08:15] VITALS: BP 99/63
[2017-03-18] MEDS: OCUSOFT LID SCRUB TP SCH ×2 (08:56→17:21)
[2017-03-18] MEDS: PEPCID GT SCH ×2 (08:56→21:31)
[2017-03-18] MEDS: CHLORHEXIDINE GLUCONATE 15 ML UDC MM SCH ×2 (08:56→17:21)
[2017-03-18] MEDS: MINERAL OIL/PETROLATUM,WHITE 454 GM JAR TP SCH ×2 (08:56→21:31)
[2017-03-18] MEDS: FIBERSOURCE HN 1,000 ML BOTTLE GT PRN (11:15)
[2017-03-18] MEDS: HYDROGEN PEROXIDE 480 ML BOTTLE TP SCH ×2 (11:41→21:31)
[2017-03-18] MEDS: Z GUARD REMEDY 4 OZ OINT TP SCH ×2 (11:42→21:31)
[2017-03-18] MEDS: ZINC OXIDE 30 GM TUBE TP SCH ×2 (11:42→21:31)
--- NOTE | 2017-03-18 16:09 | NUR ---
Spoke with Dr. Reese, he gave an order to DC Vancomycin. Continue Zosyn for 7 days. Change Solumedrol 60mg IV to QD starting tomorrow 03/19/2017 and continue Solumedrol 60 mg IV until 03/21/2017
[2017-03-18 19:52] VITALS: BP 105/105
[2017-03-18] MEDS: ASCORBIC ACID 500 MG TABLET GT SCH (21:31)
[2017-03-18] MEDS: PROSOURCE / PROSTAT (PYXIS) 30 ML UDC GT SCH (21:31)
[2017-03-18] MEDS: MULTIVIT, IRON, MIN NO. 8, FA 1 TAB GT SCH (21:31)
[2017-03-19] MEDS: SUCRALFATE 1 G/10 ML UDC GT SCH ×6 (00:28→21:46)
[2017-03-19] MEDS: FIBERSOURCE HN 1,000 ML BOTTLE GT PRN ×2 (01:57→18:11)
[2017-03-19] MEDS: IPRATROPIUM NEB FS 0.5 MG/2.5 ML AMPUL.NEB IH SCH ×4 (02:07→19:22)
[2017-03-19] MEDS: ALBUTEROL FS 2.5 MG/0.5 ML VIAL.NEB NEB SCH ×4 (02:07→19:22)
[2017-03-19] MEDS: PIPERACILLIN /TAZOBACTAM 3.375 G in IV D5W 50 ML IV SCH ×3 (05:00→21:14)
[2017-03-19] MEDS: POLYVINYL ALCOHOL 15 ML BOTTLE EACHEYE SCH ×3 (05:46→21:46)
[2017-03-19] MEDS: OMEPRAZOLE 20 MG CAPSULE.DR GT SCH (05:46)
[2017-03-19] MEDS: ACETYLCYSTEINE 10% SOLN 400 MG/4 ML VIAL NEB SCH ×4 (07:35→23:26)
[2017-03-19 07:40] VITALS: BP 144/65
[2017-03-19] MEDS: methylPREDNISolone SOD SUCC 125 MG/2ML VIAL IV SCH (09:00)
[2017-03-19] MEDS: ZINC OXIDE 30 GM TUBE TP SCH ×2 (09:16→21:46)
[2017-03-19] MEDS: Z GUARD REMEDY 4 OZ OINT TP SCH ×2 (09:16→21:46)
[2017-03-19] MEDS: HYDROGEN PEROXIDE 480 ML BOTTLE TP SCH ×2 (09:17→21:46)
[2017-03-19] MEDS: OCUSOFT LID SCRUB TP SCH ×2 (09:17→17:31)
[2017-03-19] MEDS: MINERAL OIL/PETROLATUM,WHITE 454 GM JAR TP SCH ×2 (09:18→21:46)
[2017-03-19] MEDS: CHLORHEXIDINE GLUCONATE 15 ML UDC MM SCH ×2 (09:19→17:31)
[2017-03-19] MEDS: PEPCID GT SCH ×2 (09:20→21:46)
--- NOTE | 2017-03-19 10:00 | NUR ---
7a-7p appliance counselor nurse reported patient pulled out his heplock many times, he was not cooperative at all times despite of encouragement. CAMERA PERSON Isidra made aware, she stated " patient needs IV access". Patient still has congestion and periods of SOB. This morning patient awake, more calm at this time, approached in a calm manner. Heplock was able to start to left hand, solu-medrol IV push given. CAMERA PERSON has new order may insert midline. Nurse SUP,(KRISH) aware and will have somebody come this afternoon for midline insertion. Patient closely monitored.
[2017-03-19 19:38] VITALS: BP 131/76
--- NOTE | 2017-03-19 21:00 | NUR ---
Midline nurse came and inserted Mid line catheter to Right upper arm,secured with dressing.Pt tolerated the procedure,but uncooperative needs to hold other hand because he's trying to fight with the nurse even with explanation in calm manner.Will continue to monitor.
[2017-03-19] MEDS: ASCORBIC ACID 500 MG TABLET GT SCH (21:46)
[2017-03-19] MEDS: MULTIVIT, IRON, MIN NO. 8, FA 1 TAB GT SCH (21:46)
[2017-03-19] MEDS: PROSOURCE / PROSTAT (PYXIS) 30 ML UDC GT SCH (21:46)
[2017-03-20] MEDS: SUCRALFATE 1 G/10 ML UDC GT SCH ×6 (01:38→21:07)
[2017-03-20] MEDS: IPRATROPIUM NEB FS 0.5 MG/2.5 ML AMPUL.NEB IH SCH ×4 (02:07→20:19)
[2017-03-20] MEDS: ALBUTEROL FS 2.5 MG/0.5 ML VIAL.NEB NEB SCH ×4 (02:07→20:19)
[2017-03-20] MEDS: POLYVINYL ALCOHOL 15 ML BOTTLE EACHEYE SCH ×3 (05:00→21:07)
[2017-03-20] MEDS: PIPERACILLIN /TAZOBACTAM 3.375 G in IV D5W 50 ML IV SCH ×3 (05:07→21:22)
--- NOTE | 2017-03-20 05:50 | NUR ---
Pt is very uncooperative,pulled the nurse hair when giving IV antibiotic and suctioning him.Explained to the patient in calmly manner that he needs to be suctioned because he has a lot of secretions and his respirations is high.Pt still very agitated and trying to hit the nurse.Will monitor pt behavior.
[2017-03-20] MEDS: OMEPRAZOLE 20 MG CAPSULE.DR GT SCH (06:17)
[2017-03-20] MEDS: FIBERSOURCE HN 1,000 ML BOTTLE GT PRN ×2 (06:27→21:39)
[2017-03-20 07:36] VITALS: BP 110/72
[2017-03-20] MEDS: ACETYLCYSTEINE 10% SOLN 400 MG/4 ML VIAL NEB SCH ×3 (08:04→23:39)
[2017-03-20] MEDS: PEPCID GT SCH ×2 (08:32→21:07)
[2017-03-20] MEDS: MINERAL OIL/PETROLATUM,WHITE 454 GM JAR TP SCH ×2 (08:33→21:08)
[2017-03-20] MEDS: CHLORHEXIDINE GLUCONATE 15 ML UDC MM SCH ×2 (08:33→16:41)
[2017-03-20] MEDS: OCUSOFT LID SCRUB TP SCH ×2 (08:33→16:41)
[2017-03-20] MEDS: Z GUARD REMEDY 4 OZ OINT TP SCH ×2 (08:34→21:08)
[2017-03-20] MEDS: HYDROGEN PEROXIDE 480 ML BOTTLE TP SCH ×2 (08:34→21:08)
[2017-03-20] MEDS: ZINC OXIDE 30 GM TUBE TP SCH (08:34)
[2017-03-20] MEDS: methylPREDNISolone SOD SUCC 125 MG/2ML VIAL IV SCH (10:00)
--- NOTE | 2017-03-20 13:30 | NUR ---
INTERDISCIPLINARY TEAM CONFERENCE (IDT) was held today.family member unable to attend the meeting ,informed about IDT conference. Dr. Reese and the interdisciplinary team reviewed the current plan of care in detail. New orders were reviewed.resident will continue with IV antibiotic .inserted midline on 03/19/17.no new orders were given .responsible libertarian made aware about the IDT discussion.left message to daughter bradly.
[2017-03-20 20:00] VITALS: BP 114/70
[2017-03-20] MEDS: MULTIVIT, IRON, MIN NO. 8, FA 1 TAB GT SCH (21:07)
[2017-03-20] MEDS: PROSOURCE / PROSTAT (PYXIS) 30 ML UDC GT SCH (21:07)
[2017-03-20] MEDS: ASCORBIC ACID 500 MG TABLET GT SCH (21:08)
[2017-03-21] MEDS: SUCRALFATE 1 G/10 ML UDC GT SCH ×6 (00:01→21:10)
[2017-03-21] MEDS: ALBUTEROL FS 2.5 MG/0.5 ML VIAL.NEB NEB SCH ×4 (01:45→19:35)
[2017-03-21] MEDS: IPRATROPIUM NEB FS 0.5 MG/2.5 ML AMPUL.NEB IH SCH ×4 (01:45→19:35)
[2017-03-21] MEDS: PIPERACILLIN /TAZOBACTAM 3.375 G in IV D5W 50 ML IV SCH ×3 (04:13→21:00)
[2017-03-21] MEDS: POLYVINYL ALCOHOL 15 ML BOTTLE EACHEYE SCH ×3 (05:02→21:10)
[2017-03-21] MEDS: OMEPRAZOLE 20 MG CAPSULE.DR GT SCH (05:02)
[2017-03-21 07:39] VITALS: BP 109/77
[2017-03-21] MEDS: ACETYLCYSTEINE 10% SOLN 400 MG/4 ML VIAL NEB SCH ×3 (07:51→23:13)
[2017-03-21] MEDS: OCUSOFT LID SCRUB TP SCH ×2 (09:00→16:36)
[2017-03-21] MEDS: methylPREDNISolone SOD SUCC 125 MG/2ML VIAL IV SCH (09:00)
[2017-03-21] MEDS: CHLORHEXIDINE GLUCONATE 15 ML UDC MM SCH ×2 (09:00→16:36)
[2017-03-21] MEDS: PEPCID GT SCH ×2 (09:23→21:10)
[2017-03-21] MEDS: FIBERSOURCE HN 1,000 ML BOTTLE GT PRN (12:13)
[2017-03-21] MEDS: Z GUARD REMEDY 4 OZ OINT TP SCH ×2 (16:47→21:14)
[2017-03-21] MEDS: MINERAL OIL/PETROLATUM,WHITE 454 GM JAR TP SCH ×2 (16:47→21:14)
[2017-03-21] MEDS: HYDROGEN PEROXIDE 480 ML BOTTLE TP SCH ×2 (16:47→21:14)
[2017-03-21 19:56] VITALS: BP 111/68
[2017-03-21] MEDS: MULTIVIT, IRON, MIN NO. 8, FA 1 TAB GT SCH (21:14)
[2017-03-21] MEDS: PROSOURCE / PROSTAT (PYXIS) 30 ML UDC GT SCH (21:14)
[2017-03-21] MEDS: ASCORBIC ACID 500 MG TABLET GT SCH (21:14)
[2017-03-22] MEDS: SUCRALFATE 1 G/10 ML UDC GT SCH ×6 (01:02→20:38)
[2017-03-22] MEDS: ALBUTEROL FS 2.5 MG/0.5 ML VIAL.NEB NEB SCH ×4 (02:12→19:49)
[2017-03-22] MEDS: IPRATROPIUM NEB FS 0.5 MG/2.5 ML AMPUL.NEB IH SCH ×4 (02:12→19:49)
[2017-03-22] MEDS: PIPERACILLIN /TAZOBACTAM 3.375 G in IV D5W 50 ML IV SCH ×3 (05:00→21:00)
--- NOTE | 2017-03-22 05:01 | NUR ---
RN NOTES: ANTIBIOTIC IV ZOSYN GIVEN AT 294 AND 3.EXPLAINED TO HIM WILL REMOVE PERIPHERAL LINE ON THE LEFT HAND,HE STRONGLY REFUSED, WILL TRY AGAIN LATER.
[2017-03-22] MEDS: POLYVINYL ALCOHOL 15 ML BOTTLE EACHEYE SCH ×3 (05:21→20:38)
[2017-03-22] MEDS: OMEPRAZOLE 20 MG CAPSULE.DR GT SCH (05:22)
[2017-03-22] MEDS: FIBERSOURCE HN 1,000 ML BOTTLE GT PRN ×2 (05:23→20:42)
[2017-03-22 07:57] VITALS: BP 127/78
[2017-03-22] MEDS: ACETYLCYSTEINE 10% SOLN 400 MG/4 ML VIAL NEB SCH ×3 (08:28→23:30)
[2017-03-22] MEDS: PEPCID GT SCH ×2 (08:41→20:38)
[2017-03-22] MEDS: CHLORHEXIDINE GLUCONATE 15 ML UDC MM SCH ×2 (08:42→17:36)
[2017-03-22] MEDS: OCUSOFT LID SCRUB TP SCH ×2 (08:42→17:36)
[2017-03-22] MEDS: Z GUARD REMEDY 4 OZ OINT TP SCH ×2 (09:00→20:39)
[2017-03-22] MEDS: HYDROGEN PEROXIDE 480 ML BOTTLE TP SCH ×2 (09:00→20:39)
[2017-03-22] MEDS: MINERAL OIL/PETROLATUM,WHITE 454 GM JAR TP SCH ×2 (09:00→20:39)
[2017-03-22 19:32] VITALS: BP 107/66
[2017-03-22] MEDS: MULTIVIT, IRON, MIN NO. 8, FA 1 TAB GT SCH (20:38)
[2017-03-22] MEDS: ASCORBIC ACID 500 MG TABLET GT SCH (20:38)
[2017-03-22] MEDS: PROSOURCE / PROSTAT (PYXIS) 30 ML UDC GT SCH (20:38)
[2017-03-22] MEDS: ZINC OXIDE 30 GM TUBE TP SCH (20:39)
[2017-03-23] MEDS: IPRATROPIUM NEB FS 0.5 MG/2.5 ML AMPUL.NEB IH SCH ×4 (01:27→19:43)
[2017-03-23] MEDS: ALBUTEROL FS 2.5 MG/0.5 ML VIAL.NEB NEB SCH ×4 (01:27→19:43)
[2017-03-23] MEDS: SUCRALFATE 1 G/10 ML UDC GT SCH ×6 (01:57→20:43)
[2017-03-23] MEDS: PIPERACILLIN /TAZOBACTAM 3.375 G in IV D5W 50 ML IV SCH (05:00)
[2017-03-23] MEDS: POLYVINYL ALCOHOL 15 ML BOTTLE EACHEYE SCH ×3 (05:52→20:43)
[2017-03-23] MEDS: OMEPRAZOLE 20 MG CAPSULE.DR GT SCH (05:52)
[2017-03-23] MEDS: ACETYLCYSTEINE 10% SOLN 400 MG/4 ML VIAL NEB SCH ×3 (07:59→23:34)
[2017-03-23 08:08] VITALS: BP 99/63
[2017-03-23] MEDS: CHLORHEXIDINE GLUCONATE 15 ML UDC MM SCH ×2 (08:39→17:00)
[2017-03-23] MEDS: PEPCID GT SCH ×2 (08:39→20:43)
[2017-03-23] MEDS: OCUSOFT LID SCRUB TP SCH ×2 (08:40→17:00)
[2017-03-23] MEDS: MORPHINE SULFATE 10 MG/5 ML GT PRN ×3 (11:44→22:31)
--- NOTE | 2017-03-23 14:00 | NUR ---
Seen and examined by Isidra Ayala NP for Dr. Reese, NNO given. Addendum: 03/23/17 at 1758 by MAYRA LLANOS RN Notified Isidra that per grocery stock clerk resident still with episode of SOB, Isidra ordered CXRY in AM so Dr. Reese can review the result when he make his rounds in the morning.
[2017-03-23] MEDS: MINERAL OIL/PETROLATUM,WHITE 454 GM JAR TP SCH ×2 (14:30→20:43)
[2017-03-23] MEDS: HYDROGEN PEROXIDE 480 ML BOTTLE TP SCH ×2 (14:51→20:43)
[2017-03-23] MEDS: Z GUARD REMEDY 4 OZ OINT TP SCH ×2 (14:51→20:43)
[2017-03-23] MEDS: ZINC OXIDE 30 GM TUBE TP SCH ×2 (14:52→20:43)
[2017-03-23] MEDS: FIBERSOURCE HN 1,000 ML BOTTLE GT PRN (14:52)
--- NOTE | 2017-03-23 17:20 | NUR ---
Noted patient to have hyperventilation episode leading to SOB after care provided as scheduled. Noted with excessive secretions suctioned as needed respiratory care provided by RT. V/S 178/112 HR 124 Oxygen saturation by pulse oximetry 96 percent. RN communications supervisor notified. Awake alert and responsive. Tracheostomy with vent as ordered. Medications given as ordered. Secretions are pale yellow. Aspiration precautions maintained. Gt in place patent no residual.
--- NOTE | 2017-03-23 17:30 | NUR ---
Notified Isidra Ayala NP for Dr. Reese resident with increase work of breathing, RR 40's, B/P 145/120, HR 120, 98% 02 saturation, T 98. Patient very anxious. Medicated with PRN Morphine 2x this shift for severe pain. RT and STATION HELPER at the bedside monitoring patient's condition suctioned trach and breathing treatment given, non pharmacological intervention such as repositioning, talking to patient to relax are ineffective. Awaiting for MD to call back. Continue to monitor.
[2017-03-23] MEDS: ACETAMINOPHEN 650 MG/20 ML UDC- FOR SA PATIENTS ONLY GT PRN (17:33)
--- NOTE | 2017-03-23 17:58 | NUR ---
Resident's condition slowly improving, V/S at 1735 126/103, 112, 98% RR 32, T98.0 and at 1750, 155/86, 99, 99% RR 26, calm. Chest XRY done. Responsible libertarian Amanda Olivo,daughter notified of the change in condition, appreciated the call, stated she is out of town and will be back tomorrow.
--- NOTE | 2017-03-23 18:30 | NUR ---
V/S BP 92/63, P 94, R 20 T98.0 P/A 0/10. Skin is warm and dry. Moist oral mucosa. Trach with vent as ordered. Awake, alert responsive to verbal stimuli. Patient with HOB elevated. No further episode of hyperventilation leading to sob at this time. S/P routine trach change done by RT and RN at 1532 with minimal bleeding and cold NS lavage, Tracheostomy care provided. On pain management with Morphine times two and Tylenol throughout shift for generalized pain and effective. Respiratory therapy provided. No further episodes of bleeding. Patient noted to not tolerate well HOB down to provide care as scheduled for too long. Aspiration precaution maintained. Kept clean and comfortable.
--- NOTE | 2017-03-23 19:00 | NUR ---
Received a phone call from Dr. Reese stated that Isidra Ayala NP informed him of Lynn's episode of SOB, Informed Dr. Reese that earlier, resident with severe shortness of breath, but at this time he was more calm. Inform Dr. Reese Cxray was ordered stat and per husbandry technician, the lungs looks bad. Dr. Reese said his lungs always look bad, he did not order ATB but instead to do CBC in AM. Resident afebrile at 98.0. All orders noted and carried out. Endorsed.
[2017-03-23 20:07] VITALS: BP 96/61
[2017-03-23] MEDS: PROSOURCE / PROSTAT (PYXIS) 30 ML UDC GT SCH (20:43)
[2017-03-23] MEDS: MULTIVIT, IRON, MIN NO. 8, FA 1 TAB GT SCH (20:43)
[2017-03-23] MEDS: ASCORBIC ACID 500 MG TABLET GT SCH (20:43)
[2017-03-24] MEDS: SUCRALFATE 1 G/10 ML UDC GT SCH ×6 (00:16→20:41)
[2017-03-24] MEDS: ALBUTEROL FS 2.5 MG/0.5 ML VIAL.NEB NEB SCH ×4 (01:18→19:37)
[2017-03-24] MEDS: IPRATROPIUM NEB FS 0.5 MG/2.5 ML AMPUL.NEB IH SCH ×4 (01:18→19:36)
[2017-03-24] MEDS: POLYVINYL ALCOHOL 15 ML BOTTLE EACHEYE SCH ×3 (05:30→20:41)
[2017-03-24] MEDS: OMEPRAZOLE 20 MG CAPSULE.DR GT SCH (05:30)
[2017-03-24] MEDS: FIBERSOURCE HN 1,000 ML BOTTLE GT PRN ×2 (05:30→21:50)
[2017-03-24 07:37] VITALS: BP 99/68
[2017-03-24 07:43] LABS: BASOPHILS % (AUTO) 0.1 % (0.0-2.0); EOSINOPHILS # (AUTO) 0.2 /CMM (0.0-0.7); EOSINOPHILS % (AUTO) 1.4 % (0.0-6.0); HEMATOCRIT 31 % (39-51); LYMPHOCYTES # (AUTO) 1.1 /CMM (0.8-4.8); LYMPHOCYTES % (AUTO) 9.4 % (20.0-44.0); MEAN CORPUSCULAR HEMOGLOBIN 28 PG (26.0-33.0); MEAN CORPUSCULAR HGB CONC 32 g/dl (31.0-36.0); MEAN CORPUSCULAR VOLUME 87 fL (80-96); MONOCYTES # (AUTO) 0.6 /CMM (0.1-1.30); MONOCYTES % (AUTO) 4.8 % (2.0-12.0); NEUTROPHILS % (AUTO) 84.3 % (43.0-81.0); PLATELET COUNT (AUTO) 314 /CMM (150-450); RED BLOOD CELL COUNT(AUTO) 3.57 MIL/uL (4.5-6.0); WHITE BLOOD COUNT (AUTO) 11.8 K/uL (4.3-11.0)
[2017-03-24] MEDS: ACETYLCYSTEINE 10% SOLN 400 MG/4 ML VIAL NEB SCH ×3 (08:20→23:30)
[2017-03-24] MEDS: PEPCID GT SCH ×2 (08:53→20:41)
[2017-03-24] MEDS: CHLORHEXIDINE GLUCONATE 15 ML UDC MM SCH ×2 (08:54→17:34)
[2017-03-24] MEDS: MINERAL OIL/PETROLATUM,WHITE 454 GM JAR TP SCH ×2 (08:55→20:42)
[2017-03-24] MEDS: OCUSOFT LID SCRUB TP SCH ×2 (08:55→17:00)
[2017-03-24] MEDS: Z GUARD REMEDY 4 OZ OINT TP SCH ×2 (08:55→20:42)
[2017-03-24] MEDS: ZINC OXIDE 30 GM TUBE TP SCH ×2 (08:55→20:42)
[2017-03-24] MEDS: HYDROGEN PEROXIDE 480 ML BOTTLE TP SCH ×2 (11:16→20:42)
[2017-03-24] MEDS: MORPHINE SULFATE 10 MG/5 ML GT PRN (11:16)
--- NOTE | 2017-03-24 17:00 | NUR ---
Notified SYSTEMS REQUIREMENTS PLANNER Isidra Ayala that pt was placed on tidal volume of 500 yesterday due to SOB. She ordered to keep pt on VT 500 and she said she will see pt tomorrow.
[2017-03-24 19:29] VITALS: BP 101/60
[2017-03-24] MEDS: PROSOURCE / PROSTAT (PYXIS) 30 ML UDC GT SCH (20:41)
[2017-03-24] MEDS: MULTIVIT, IRON, MIN NO. 8, FA 1 TAB GT SCH (20:42)
[2017-03-24] MEDS: ASCORBIC ACID 500 MG TABLET GT SCH (20:42)
[2017-03-25] MEDS: SUCRALFATE 1 G/10 ML UDC GT SCH ×6 (00:27→21:12)
[2017-03-25] MEDS: ALBUTEROL FS 2.5 MG/0.5 ML VIAL.NEB NEB SCH ×4 (01:52→19:24)
[2017-03-25] MEDS: IPRATROPIUM NEB FS 0.5 MG/2.5 ML AMPUL.NEB IH SCH ×4 (01:52→19:24)
[2017-03-25] MEDS: POLYVINYL ALCOHOL 15 ML BOTTLE EACHEYE SCH ×3 (05:55→21:12)
[2017-03-25] MEDS: OMEPRAZOLE 20 MG CAPSULE.DR GT SCH (05:55)
[2017-03-25 07:48] VITALS: BP 85/58
[2017-03-25] MEDS: ACETYLCYSTEINE 10% SOLN 400 MG/4 ML VIAL NEB SCH ×3 (08:28→23:12)
[2017-03-25] MEDS: OCUSOFT LID SCRUB TP SCH ×2 (09:35→17:06)
[2017-03-25] MEDS: Z GUARD REMEDY 4 OZ OINT TP SCH ×2 (09:35→21:13)
[2017-03-25] MEDS: HYDROGEN PEROXIDE 480 ML BOTTLE TP SCH ×2 (09:35→21:12)
[2017-03-25] MEDS: PEPCID GT SCH ×2 (09:35→21:12)
[2017-03-25] MEDS: MINERAL OIL/PETROLATUM,WHITE 454 GM JAR TP SCH ×2 (09:35→21:12)
[2017-03-25] MEDS: CHLORHEXIDINE GLUCONATE 15 ML UDC MM SCH ×2 (09:35→17:06)
[2017-03-25] MEDS: ZINC OXIDE 30 GM TUBE TP SCH ×2 (09:35→21:13)
[2017-03-25] MEDS: MORPHINE SULFATE 10 MG/5 ML GT PRN (18:01)
[2017-03-25] MEDS: FIBERSOURCE HN 1,000 ML BOTTLE GT PRN (18:57)
--- NOTE | 2017-03-25 19:00 | NUR ---
Seen by Isidra Ayala, LINK WIRE FABRIC MACHINE TENDER for Dr. Reese, reported that resident with episode of SOB arounfd 1800 when care being provided. His condition improved with combination of tracheal suctioning, breathing treatment, repositioning and administration of PRN pain medication. NNO given at this time.
[2017-03-25] MEDS: MULTIVIT, IRON, MIN NO. 8, FA 1 TAB GT SCH (21:12)
[2017-03-25] MEDS: ASCORBIC ACID 500 MG TABLET GT SCH (21:12)
[2017-03-25] MEDS: PROSOURCE / PROSTAT (PYXIS) 30 ML UDC GT SCH (21:12)
[2017-03-26] MEDS: SUCRALFATE 1 G/10 ML UDC GT SCH ×6 (00:06→20:37)
[2017-03-26] MEDS: IPRATROPIUM NEB FS 0.5 MG/2.5 ML AMPUL.NEB IH SCH ×4 (01:24→19:16)
[2017-03-26] MEDS: ALBUTEROL FS 2.5 MG/0.5 ML VIAL.NEB NEB SCH ×4 (01:24→19:16)
[2017-03-26] MEDS: POLYVINYL ALCOHOL 15 ML BOTTLE EACHEYE SCH ×3 (05:01→20:37)
[2017-03-26] MEDS: OMEPRAZOLE 20 MG CAPSULE.DR GT SCH (05:01)
[2017-03-26] MEDS: ACETYLCYSTEINE 10% SOLN 400 MG/4 ML VIAL NEB SCH ×3 (07:50→23:20)
[2017-03-26 07:53] VITALS: BP 105/65
[2017-03-26] MEDS: HYDROGEN PEROXIDE 480 ML BOTTLE TP SCH ×2 (09:00→20:37)
[2017-03-26] MEDS: CHLORHEXIDINE GLUCONATE 15 ML UDC MM SCH ×2 (09:00→17:00)
[2017-03-26] MEDS: MINERAL OIL/PETROLATUM,WHITE 454 GM JAR TP SCH ×2 (09:00→20:37)
[2017-03-26] MEDS: PEPCID GT SCH ×2 (09:00→20:37)
[2017-03-26] MEDS: ZINC OXIDE 30 GM TUBE TP SCH ×2 (09:00→20:37)
[2017-03-26] MEDS: OCUSOFT LID SCRUB TP SCH ×2 (09:00→17:00)
[2017-03-26] MEDS: Z GUARD REMEDY 4 OZ OINT TP SCH ×2 (09:00→20:37)
[2017-03-26 19:54] VITALS: BP 97/66
[2017-03-26] MEDS: ASCORBIC ACID 500 MG TABLET GT SCH (20:37)
[2017-03-26] MEDS: MULTIVIT, IRON, MIN NO. 8, FA 1 TAB GT SCH (20:37)
[2017-03-26] MEDS: PROSOURCE / PROSTAT (PYXIS) 30 ML UDC GT SCH (20:37)
[2017-03-27] MEDS: SUCRALFATE 1 G/10 ML UDC GT SCH ×6 (01:19→20:59)
[2017-03-27] MEDS: FIBERSOURCE HN 1,000 ML BOTTLE GT PRN ×2 (01:19→17:27)
[2017-03-27] MEDS: ALBUTEROL FS 2.5 MG/0.5 ML VIAL.NEB NEB SCH ×4 (02:08→20:05)
[2017-03-27] MEDS: IPRATROPIUM NEB FS 0.5 MG/2.5 ML AMPUL.NEB IH SCH ×4 (02:08→20:05)
[2017-03-27] MEDS: POLYVINYL ALCOHOL 15 ML BOTTLE EACHEYE SCH ×3 (05:00→20:59)
[2017-03-27] MEDS: OMEPRAZOLE 20 MG CAPSULE.DR GT SCH (06:29)
[2017-03-27] MEDS: ACETYLCYSTEINE 10% SOLN 400 MG/4 ML VIAL NEB SCH ×3 (07:31→23:48)
[2017-03-27 07:44] VITALS: BP 103/56
[2017-03-27] MEDS: HYDROGEN PEROXIDE 480 ML BOTTLE TP SCH ×2 (08:36→20:59)
[2017-03-27] MEDS: CHLORHEXIDINE GLUCONATE 15 ML UDC MM SCH ×2 (08:36→17:27)
[2017-03-27] MEDS: MINERAL OIL/PETROLATUM,WHITE 454 GM JAR TP SCH ×2 (08:36→20:59)
[2017-03-27] MEDS: OCUSOFT LID SCRUB TP SCH ×2 (08:36→17:27)
[2017-03-27] MEDS: PEPCID GT SCH ×2 (08:36→20:59)
[2017-03-27] MEDS: ZINC OXIDE 30 GM TUBE TP SCH ×2 (08:36→20:59)
[2017-03-27] MEDS: Z GUARD REMEDY 4 OZ OINT TP SCH ×2 (08:36→20:59)
[2017-03-27] MEDS: MORPHINE SULFATE 10 MG/5 ML GT PRN (11:22)
[2017-03-27 19:56] VITALS: BP 117/69
[2017-03-27] MEDS: MULTIVIT, IRON, MIN NO. 8, FA 1 TAB GT SCH (20:59)
[2017-03-27] MEDS: PROSOURCE / PROSTAT (PYXIS) 30 ML UDC GT SCH (20:59)
[2017-03-27] MEDS: ASCORBIC ACID 500 MG TABLET GT SCH (20:59)
[2017-03-28] MEDS: SUCRALFATE 1 G/10 ML UDC GT SCH ×6 (00:13→20:23)
[2017-03-28] MEDS: ALBUTEROL FS 2.5 MG/0.5 ML VIAL.NEB NEB SCH ×4 (01:44→19:30)
[2017-03-28] MEDS: IPRATROPIUM NEB FS 0.5 MG/2.5 ML AMPUL.NEB IH SCH ×4 (01:44→19:30)
[2017-03-28] MEDS: OMEPRAZOLE 20 MG CAPSULE.DR GT SCH (05:35)
[2017-03-28] MEDS: POLYVINYL ALCOHOL 15 ML BOTTLE EACHEYE SCH ×3 (05:35→20:23)
[2017-03-28] MEDS: FIBERSOURCE HN 1,000 ML BOTTLE GT PRN ×2 (05:36→23:14)
[2017-03-28] MEDS: ACETYLCYSTEINE 10% SOLN 400 MG/4 ML VIAL NEB SCH ×3 (07:35→23:30)
[2017-03-28 07:50] VITALS: BP 103/74
[2017-03-28] MEDS: HYDROGEN PEROXIDE 480 ML BOTTLE TP SCH ×2 (09:31→20:23)
[2017-03-28] MEDS: MINERAL OIL/PETROLATUM,WHITE 454 GM JAR TP SCH ×2 (09:32→20:23)
[2017-03-28] MEDS: Z GUARD REMEDY 4 OZ OINT TP SCH ×2 (09:32→20:24)
[2017-03-28] MEDS: PEPCID GT SCH ×2 (09:34→20:23)
[2017-03-28] MEDS: OCUSOFT LID SCRUB TP SCH ×2 (09:36→16:40)
[2017-03-28] MEDS: ZINC OXIDE 30 GM TUBE TP SCH ×2 (09:37→20:24)
[2017-03-28] MEDS: CHLORHEXIDINE GLUCONATE 15 ML UDC MM SCH ×2 (09:38→16:40)
--- NOTE | 2017-03-28 10:40 | NUR ---
Seen and examined by Dr. Vance, reported resident with episodes of shortness of breath almost each time when care is provided. He reviewed chest Xray taken on 03/23/2017 with new order to do a repeat chest X-ray. Orders noted and carried out.
--- NOTE | 2017-03-28 13:45 | NUR ---
Left a message to Dr. Vance that chest Xray is done but report is not available yet. The film is available in [facility] for his review.
[2017-03-28] MEDS: MORPHINE SULFATE 10 MG/5 ML GT PRN ×2 (15:30→23:22)
--- NOTE | 2017-03-28 16:40 | NUR ---
Reported Chest X-Ray with ff. results (1). cardiomegaly with pulmonary vascular congestion, (2). large hiatal hernia with increasing bilateral lower lobe air spaces opacities, left greater than right. Possible small bilateral pleural effusions to Dr. Vance. also notified of episode of labored breathing with RR 45-50 breaths per minute, HR 120. This happened after providing care. Resident eventually relaxed 30 minutes later after a combination of interventions like suctioning, breathing treatment, administration of PRN pain medication and repositioning. New order given to give Lasix 40 mg x 1/GT. Order noted and carried out.
[2017-03-28] MEDS ORDERED: FUROSEMIDE SOLN 40 MG/5 ML UDC GT ONE (16:53)
--- NOTE | 2017-03-28 17:26 | NUR ---
Resident is calm no shortness of breath, turn and reposition with 2 person assist. He gets very agitated and combative when staff providing care, (i.e. suctioning, changing diaper, turning and repositioning) despite explanation. Resident stable at this time V/S 115/85, 105, 98.1, RR 20, O2 sat 100%.
[2017-03-28 19:36] VITALS: BP 100/60
[2017-03-28] MEDS: ASCORBIC ACID 500 MG TABLET GT SCH (20:23)
[2017-03-28] MEDS: PROSOURCE / PROSTAT (PYXIS) 30 ML UDC GT SCH (20:23)
[2017-03-28] MEDS: MULTIVIT, IRON, MIN NO. 8, FA 1 TAB GT SCH (20:23)
[2017-03-29] MEDS: SUCRALFATE 1 G/10 ML UDC GT SCH ×6 (01:26→20:40)
[2017-03-29] MEDS: ALBUTEROL FS 2.5 MG/0.5 ML VIAL.NEB NEB SCH ×4 (01:43→19:36)
[2017-03-29] MEDS: IPRATROPIUM NEB FS 0.5 MG/2.5 ML AMPUL.NEB IH SCH ×4 (01:43→19:36)
[2017-03-29] MEDS: POLYVINYL ALCOHOL 15 ML BOTTLE EACHEYE SCH ×3 (05:23→20:39)
[2017-03-29] MEDS: OMEPRAZOLE 20 MG CAPSULE.DR GT SCH (05:23)
[2017-03-29] MEDS: ACETYLCYSTEINE 10% SOLN 400 MG/4 ML VIAL NEB SCH ×3 (07:32→23:30)
[2017-03-29 08:00] VITALS: BP 92/51
[2017-03-29] MEDS: PEPCID GT SCH ×2 (09:22→20:41)
[2017-03-29] MEDS: MINERAL OIL/PETROLATUM,WHITE 454 GM JAR TP SCH ×2 (09:22→20:42)
[2017-03-29] MEDS: CHLORHEXIDINE GLUCONATE 15 ML UDC MM SCH ×2 (09:22→17:00)
[2017-03-29] MEDS: HYDROGEN PEROXIDE 480 ML BOTTLE TP SCH ×2 (09:23→20:42)
[2017-03-29] MEDS: OCUSOFT LID SCRUB TP SCH ×2 (09:23→17:00)
[2017-03-29] MEDS: ZINC OXIDE 30 GM TUBE TP SCH ×2 (09:23→20:43)
[2017-03-29] MEDS: Z GUARD REMEDY 4 OZ OINT TP SCH ×2 (09:23→20:43)
[2017-03-29] MEDS: MORPHINE SULFATE 10 MG/5 ML GT PRN (15:52)
[2017-03-29] MEDS: FIBERSOURCE HN 1,000 ML BOTTLE GT PRN (15:53)
[2017-03-29 20:02] VITALS: BP 121/76
[2017-03-29] MEDS: MULTIVIT, IRON, MIN NO. 8, FA 1 TAB GT SCH (20:42)
[2017-03-29] MEDS: ASCORBIC ACID 500 MG TABLET GT SCH (20:42)
[2017-03-29] MEDS: PROSOURCE / PROSTAT (PYXIS) 30 ML UDC GT SCH (20:42)
--- NOTE | 2017-03-29 23:41 | NUR ---
RT NO MEDS SINCE AM Addendum: 03/31/17 at 0710 by RAFAEL COX RT Wrong Entry
[2017-03-30] MEDS: SUCRALFATE 1 G/10 ML UDC GT SCH ×6 (00:14→20:52)
[2017-03-30] MEDS: IPRATROPIUM NEB FS 0.5 MG/2.5 ML AMPUL.NEB IH SCH ×3 (01:36→14:03)
[2017-03-30] MEDS: ALBUTEROL FS 2.5 MG/0.5 ML VIAL.NEB NEB SCH ×5 (01:36→23:36)
[2017-03-30] MEDS: POLYVINYL ALCOHOL 15 ML BOTTLE EACHEYE SCH ×3 (05:37→20:49)
[2017-03-30] MEDS: OMEPRAZOLE 20 MG CAPSULE.DR GT SCH (05:37)
[2017-03-30] MEDS: FIBERSOURCE HN 1,000 ML BOTTLE GT PRN ×2 (06:48→21:34)
[2017-03-30] MEDS: ACETYLCYSTEINE 10% SOLN 400 MG/4 ML VIAL NEB SCH ×3 (07:35→23:36)
[2017-03-30 08:06] VITALS: BP 92/57
[2017-03-30] MEDS: OCUSOFT LID SCRUB TP SCH ×2 (09:43→17:00)
[2017-03-30] MEDS: MINERAL OIL/PETROLATUM,WHITE 454 GM JAR TP SCH ×2 (09:43→20:54)
[2017-03-30] MEDS: Z GUARD REMEDY 4 OZ OINT TP SCH ×2 (09:43→20:55)
[2017-03-30] MEDS: HYDROGEN PEROXIDE 480 ML BOTTLE TP SCH ×2 (09:43→20:54)
[2017-03-30] MEDS: CHLORHEXIDINE GLUCONATE 15 ML UDC MM SCH ×2 (09:43→17:00)
[2017-03-30] MEDS: PEPCID GT SCH ×2 (09:43→20:53)
[2017-03-30] MEDS: ZINC OXIDE 30 GM TUBE TP SCH ×2 (09:44→20:55)
[2017-03-30] MEDS: MORPHINE SULFATE 10 MG/5 ML GT PRN (14:30)
--- NOTE | 2017-03-30 18:10 | NUR ---
Seen by BONDERIZER OPERATOR Isidra Ayala. Notified him that pt gets SOB whenever he is cleaned or repositioned, improves with breathing treatments. Received order to increase frequency of breathing treatments. Albuterol and Atrovent changed from q 6 hours to q 4 hours routinely, DC q 4 PRN.
[2017-03-30] MEDS: IPRATROPIUM NEB FS 0.5 MG/2.5 ML AMPUL.NEB NEB SCH ×2 (20:01→23:36)
[2017-03-30 20:17] VITALS: BP 128/78
[2017-03-30] MEDS: ASCORBIC ACID 500 MG TABLET GT SCH (20:54)
[2017-03-30] MEDS: MULTIVIT, IRON, MIN NO. 8, FA 1 TAB GT SCH (20:54)
[2017-03-30] MEDS: PROSOURCE / PROSTAT (PYXIS) 30 ML UDC GT SCH (20:54)
[2017-03-31] MEDS: SUCRALFATE 1 G/10 ML UDC GT SCH ×6 (01:00→20:54)
[2017-03-31] MEDS: IPRATROPIUM NEB FS 0.5 MG/2.5 ML AMPUL.NEB NEB SCH ×6 (03:37→22:48)
[2017-03-31] MEDS: ALBUTEROL FS 2.5 MG/0.5 ML VIAL.NEB NEB SCH ×6 (03:37→22:48)
[2017-03-31] MEDS: POLYVINYL ALCOHOL 15 ML BOTTLE EACHEYE SCH ×3 (05:45→20:53)
[2017-03-31] MEDS: OMEPRAZOLE 20 MG CAPSULE.DR GT SCH (05:45)
--- NOTE | 2017-03-31 06:00 | NUR ---
Pt is very anxious throughout the shift, he doesn't want to be suction even pt is gasping for air, and doesn't want his bed to be flat when care is given, and pt hyperventilate right away if this thing does to him..
[2017-03-31 07:47] VITALS: BP 100/59
[2017-03-31] MEDS: ACETYLCYSTEINE 10% SOLN 400 MG/4 ML VIAL NEB SCH (08:12)
[2017-03-31] MEDS: OCUSOFT LID SCRUB TP SCH ×2 (09:21→16:49)
[2017-03-31] MEDS: HYDROGEN PEROXIDE 480 ML BOTTLE TP SCH ×2 (09:21→20:56)
[2017-03-31] MEDS: MINERAL OIL/PETROLATUM,WHITE 454 GM JAR TP SCH ×2 (09:21→20:56)
[2017-03-31] MEDS: PEPCID GT SCH ×2 (09:21→20:54)
[2017-03-31] MEDS: CHLORHEXIDINE GLUCONATE 15 ML UDC MM SCH ×2 (09:21→16:49)
[2017-03-31] MEDS: Z GUARD REMEDY 4 OZ OINT TP SCH ×3 (09:21→20:56)
[2017-03-31] MEDS: ZINC OXIDE 30 GM TUBE TP SCH ×2 (09:22→20:57)
--- NOTE | 2017-03-31 10:00 | NUR ---
Seen by Dr. Reese. Notified him that pt gets SOB whenever he is cleaned or repositioned. Also notified him that PUBLIC RELATIONS SPECIALIST Isidra Ayala ordered to increase Albuterol and Atrovent q 4 hours, pt has no PRN breathing treatments at this time. Asked Dr. Reese for a stop date for Mucomyst, pt started on 03/16/17. Pt does not have thick secretions at this time. Dr. Reese ordered to DC Mucomyst.
--- NOTE | 2017-03-31 10:52 | NUR ---
Notified Dr. Nayak that pt has abdominal rashes. Received order to apply Triamcinolone cream 0.1% TID for 5 days. Pt also has a gluteal crease open skin. Received order to apply Z-guard cream and have wound nurse see pt.
--- NOTE | 2017-03-31 11:45 | NUR ---
Pt was having SOB after he was cleaned and repositioned, he was breathing 41-45 cpm, O2 sat 97-99%. Pt was sliding down on his bed, pulled him up and sat him up in bed. Pt denied pain. Pt grabbed charge nurse's hand and did not want to let her leave the room. His nurse turned on the tv and switched the channels to find a show of his preference. Pt was suctioned and given a breathing treatment by RT Gerard. Charge nurse stayed with pt until he calmed down.
--- NOTE | 2017-03-31 12:40 | NUR ---
Pt having another episode of SOB. Notified Dr. Reese that pt was not even moved or repositioned this time. Received order from Dr. Reese to give Ativan 1 mg via GT q 6 hours PRN for anxiety manifested by constant fidgeting leading to SOB. Pt's daughter Olivia Olivo aware of episodes of SOB and new order to give Ativan.
[2017-03-31] MEDS: TRIAMCINOLONE ACETONIDE 0.1% CR 15 GM TUBE TP SCH ×2 (13:00→16:49)
--- NOTE | 2017-03-31 13:08 | NUR ---
Lorazepam 1mg via GT given PRN as ordered. Pt with increased RR 32-41. Repositioned patient, suctioned patient, breathing treatment was given by RT, attempted to distract patient by talking to patient and turning on TV but unsuccessful. Pt still with increased RR. Pt kept comfortable, will monitor effectiveness.
[2017-03-31] MEDS ORDERED: Z GUARD REMEDY 4 OZ OINT TP PRN (14:00)
--- NOTE | 2017-03-31 14:15 | NUR ---
Lorazepam effective, pt asleep no SOB/ distress noted. RR 21. Pt responsive to verbal/ tactile stimuli. Kept patient comfortable, all needs met and attended.
[2017-03-31] MEDS: MULTIVIT, IRON, MIN NO. 8, FA 1 TAB GT SCH (20:55)
[2017-03-31] MEDS: PROSOURCE / PROSTAT (PYXIS) 30 ML UDC GT SCH (20:55)
[2017-03-31] MEDS: ASCORBIC ACID 500 MG TABLET GT SCH (20:56)
[2017-03-31 21:18] VITALS: BP 100/62
[2017-04-01] MEDS: SUCRALFATE 1 G/10 ML UDC GT SCH ×6 (01:12→21:29)
[2017-04-01] MEDS: ALBUTEROL FS 2.5 MG/0.5 ML VIAL.NEB NEB SCH ×6 (03:46→23:32)
[2017-04-01] MEDS: IPRATROPIUM NEB FS 0.5 MG/2.5 ML AMPUL.NEB NEB SCH ×6 (03:46→23:32)
[2017-04-01] MEDS: POLYVINYL ALCOHOL 15 ML BOTTLE EACHEYE SCH ×3 (05:39→21:29)
[2017-04-01] MEDS: OMEPRAZOLE 20 MG CAPSULE.DR GT SCH (05:40)
[2017-04-01 08:12] VITALS: BP 147/68
[2017-04-01 08:13] VITALS: BP 98/52
[2017-04-01] MEDS: FIBERSOURCE HN 1,000 ML BOTTLE GT PRN (08:56)
[2017-04-01] MEDS: CHLORHEXIDINE GLUCONATE 15 ML UDC MM SCH ×2 (08:57→17:00)
[2017-04-01] MEDS: MINERAL OIL/PETROLATUM,WHITE 454 GM JAR TP SCH ×2 (08:57→21:29)
[2017-04-01] MEDS: TRIAMCINOLONE ACETONIDE 0.1% CR 15 GM TUBE TP SCH ×3 (08:57→17:16)
[2017-04-01] MEDS: OCUSOFT LID SCRUB TP SCH ×2 (08:57→17:00)
[2017-04-01] MEDS: PEPCID GT SCH ×2 (08:57→21:29)
[2017-04-01] MEDS: HYDROGEN PEROXIDE 480 ML BOTTLE TP SCH ×2 (08:57→21:29)
[2017-04-01] MEDS: Z GUARD REMEDY 4 OZ OINT TP SCH ×4 (08:58→21:30)
[2017-04-01] MEDS: ZINC OXIDE 30 GM TUBE TP SCH ×2 (08:58→21:30)
--- NOTE | 2017-04-01 09:45 | NUR ---
WOUND CARE CONSULT: PT ADAMANTLY REFUSED SKIN ASSESSMENT TODAY AND BECAME QUITE AGITATED. PT TO BE SEEN FOR GLUTEAL CREASE EXCORIATION. NURSING STAFF USING Z GUARD AND MEPILEX. SKIN TO BE KEPT CLEAN AND DRY. WILL SEE PRN. IN AGREEMENT WITH PLAN OF CARE. ALL SKIN PROTECTION MEASURES IN PLACE.
[2017-04-01 20:21] VITALS: BP 99/65
[2017-04-01] MEDS: MULTIVIT, IRON, MIN NO. 8, FA 1 TAB GT SCH (21:29)
[2017-04-01] MEDS: PROSOURCE / PROSTAT (PYXIS) 30 ML UDC GT SCH (21:29)
[2017-04-01] MEDS: ASCORBIC ACID 500 MG TABLET GT SCH (21:29)
[2017-04-01] MEDS: LORAZEPAM 1 MG TABLET GT PRN (23:24)
[2017-04-02] MEDS: SUCRALFATE 1 G/10 ML UDC GT SCH ×6 (01:25→21:23)
[2017-04-02] MEDS: FIBERSOURCE HN 1,000 ML BOTTLE GT PRN ×2 (01:25→17:52)
[2017-04-02] MEDS: ALBUTEROL FS 2.5 MG/0.5 ML VIAL.NEB NEB SCH ×6 (03:20→23:33)
[2017-04-02] MEDS: IPRATROPIUM NEB FS 0.5 MG/2.5 ML AMPUL.NEB NEB SCH ×6 (03:20→23:24)
[2017-04-02] MEDS: OMEPRAZOLE 20 MG CAPSULE.DR GT SCH (05:50)
[2017-04-02] MEDS: POLYVINYL ALCOHOL 15 ML BOTTLE EACHEYE SCH ×3 (05:50→21:23)
[2017-04-02 07:50] VITALS: BP 96/50
[2017-04-02] MEDS: CHLORHEXIDINE GLUCONATE 15 ML UDC MM SCH ×2 (09:25→17:26)
[2017-04-02] MEDS: PEPCID GT SCH ×2 (09:25→21:23)
[2017-04-02] MEDS: TRIAMCINOLONE ACETONIDE 0.1% CR 15 GM TUBE TP SCH ×3 (09:26→17:26)
[2017-04-02] MEDS: MINERAL OIL/PETROLATUM,WHITE 454 GM JAR TP SCH ×2 (09:26→21:24)
[2017-04-02] MEDS: Z GUARD REMEDY 4 OZ OINT TP SCH ×4 (09:27→21:24)
[2017-04-02] MEDS: OCUSOFT LID SCRUB TP SCH ×2 (09:27→17:26)
[2017-04-02] MEDS: HYDROGEN PEROXIDE 480 ML BOTTLE TP SCH ×2 (09:27→21:24)
[2017-04-02] MEDS: ZINC OXIDE 30 GM TUBE TP SCH ×2 (09:34→21:24)
--- NOTE | 2017-04-02 15:30 | NUR ---
Seen by Dr. Vance. Notified him that pt has episodes of SOB, breathing treatment frequency was increased and Dr. Reese ordered Ativan. Dr. Vance ordered to do CXR in a week.
[2017-04-02 20:17] VITALS: BP 100/63
[2017-04-02] MEDS: MULTIVIT, IRON, MIN NO. 8, FA 1 TAB GT SCH (21:24)
[2017-04-02] MEDS: ASCORBIC ACID 500 MG TABLET GT SCH (21:24)
[2017-04-02] MEDS: PROSOURCE / PROSTAT (PYXIS) 30 ML UDC GT SCH (21:24)
[2017-04-03] MEDS: SUCRALFATE 1 G/10 ML UDC GT SCH ×6 (00:13→20:55)
[2017-04-03] MEDS: IPRATROPIUM NEB FS 0.5 MG/2.5 ML AMPUL.NEB NEB SCH ×4 (03:13→15:14)
[2017-04-03] MEDS: ALBUTEROL FS 2.5 MG/0.5 ML VIAL.NEB NEB SCH ×6 (03:13→23:46)
[2017-04-03] MEDS: POLYVINYL ALCOHOL 15 ML BOTTLE EACHEYE SCH ×3 (05:26→20:55)
[2017-04-03] MEDS: OMEPRAZOLE 20 MG CAPSULE.DR GT SCH (05:26)
[2017-04-03] MEDS: FIBERSOURCE HN 1,000 ML BOTTLE GT PRN ×2 (05:33→21:26)
--- NOTE | 2017-04-03 06:51 | NUR ---
Pt awake during the night,tried to turn off light and make surrounding quiet but patient still cannot sleep,told him to try to sleep but he will shake his head that he can't sleep ,pt looks weak and tired.Kept comfortable and will continue to monitor.
[2017-04-03 07:36] VITALS: BP 100/60
[2017-04-03] MEDS: TRIAMCINOLONE ACETONIDE 0.1% CR 15 GM TUBE TP SCH ×3 (08:48→17:47)
[2017-04-03] MEDS: Z GUARD REMEDY 4 OZ OINT TP SCH ×4 (08:48→20:55)
[2017-04-03] MEDS: MINERAL OIL/PETROLATUM,WHITE 454 GM JAR TP SCH ×2 (08:48→20:55)
[2017-04-03] MEDS: PEPCID GT SCH ×2 (08:48→20:55)
[2017-04-03] MEDS: OCUSOFT LID SCRUB TP SCH ×2 (08:48→17:47)
[2017-04-03] MEDS: HYDROGEN PEROXIDE 480 ML BOTTLE TP SCH ×2 (08:48→20:55)
[2017-04-03] MEDS: CHLORHEXIDINE GLUCONATE 15 ML UDC MM SCH ×2 (08:48→17:47)
[2017-04-03] MEDS: ZINC OXIDE 30 GM TUBE TP SCH ×2 (08:49→20:55)
--- NOTE | 2017-04-03 15:00 | NUR ---
IDT meeting held, reviewed medications, treatment orders and labs. Dr. Reese and the rest of the team made aware that resident gets very angry and agitated when care is being provided to him leading to severe shortness of breath. It was also reported by the night cleaner patient does not sleep at night. In the past he receives Temazepam 7.5 mg PRN for insomnia. New order given for Temazepam and psyche eval to address his behavior. Left a message to resident's daughter Amanda regarding the new order.
--- NOTE | 2017-04-03 15:52 | NUR ---
Resident will be moved from room 277-1 to room 267-2. Change of room will provide more stimulation for the resident which can facilitate an increase in positive mood. Resident's daughter Olivia Olivo notified and appreciative of the information.
[2017-04-03] MEDS ORDERED: IPRATROPIUM NEB FS 0.5 MG/2.5 ML AMPUL.NEB NEB PRN (17:00)
--- NOTE | 2017-04-03 19:40 | NUR ---
Pt received phone call from his sister / Barbara, noted pt tearful while listening to his sister on the phone, let pt's sister aware of his reaction, verbalized appreciation regarding her brother's care and verbalized that she will be sending him cd / music to listen to. Comforted pt after phone call.
[2017-04-03 20:25] VITALS: BP 94/58
[2017-04-03] MEDS: ASCORBIC ACID 500 MG TABLET GT SCH (20:55)
[2017-04-03] MEDS: PROSOURCE / PROSTAT (PYXIS) 30 ML UDC GT SCH (20:55)
[2017-04-03] MEDS: MULTIVIT, IRON, MIN NO. 8, FA 1 TAB GT SCH (20:55)
--- NOTE | 2017-04-03 21:00 | NUR ---
Noted episode of anxiety l/t sob with increased rr to 50's no desaturation ;spo2 95% during pt's care by channel marketing specialist, resp tx given , and comforted pt, repositioned, kept hob elevated and held pt's hand , sang lullaby to pt and gently massaged pt's forehead for relaxation , intervention appears effective, pt's rr went down to 20 after approx 15 mins of holding pt's hand and massage. Continue to monitor pt.
[2017-04-03] MEDS: LORAZEPAM 1 MG TABLET GT PRN (23:40)
[2017-04-04] MEDS: SUCRALFATE 1 G/10 ML UDC GT SCH ×6 (00:07→20:37)
--- NOTE | 2017-04-04 00:30 | NUR ---
Noted with another episode of anxiety l/t sob with resp 6o's Sp02 93%, hr 120 , non- pharmacologic interventions ; massage and relaxation techniques ineffective, @ 2340 PRN Ativan 1 mg to gt given as ordered for anxiety l/t sob, effective after 45 mins. Pt's hr 90 rr 19 O2 sat 96%, sleeping. Will cont to monitor.
[2017-04-04] MEDS: ALBUTEROL FS 2.5 MG/0.5 ML VIAL.NEB NEB SCH ×6 (03:57→23:26)
[2017-04-04] MEDS: OMEPRAZOLE 20 MG CAPSULE.DR GT SCH (05:22)
[2017-04-04] MEDS: POLYVINYL ALCOHOL 15 ML BOTTLE EACHEYE SCH ×3 (05:22→20:37)
[2017-04-04 07:33] VITALS: BP 115/49
[2017-04-04] MEDS: LORAZEPAM 1 MG TABLET GT PRN ×2 (09:17→22:16)
[2017-04-04] MEDS: TRIAMCINOLONE ACETONIDE 0.1% CR 15 GM TUBE TP SCH ×3 (09:18→16:20)
[2017-04-04] MEDS: CHLORHEXIDINE GLUCONATE 15 ML UDC MM SCH ×2 (09:18→16:20)
[2017-04-04] MEDS: ZINC OXIDE 30 GM TUBE TP SCH ×2 (09:18→20:39)
[2017-04-04] MEDS: Z GUARD REMEDY 4 OZ OINT TP SCH ×5 (09:18→20:38)
[2017-04-04] MEDS: OCUSOFT LID SCRUB TP SCH ×2 (09:18→16:20)
[2017-04-04] MEDS: PEPCID GT SCH ×2 (09:18→20:37)
[2017-04-04] MEDS: HYDROGEN PEROXIDE 480 ML BOTTLE TP SCH ×2 (09:18→20:38)
[2017-04-04] MEDS: MINERAL OIL/PETROLATUM,WHITE 454 GM JAR TP SCH ×2 (09:18→20:38)
--- NOTE | 2017-04-04 09:20 | NUR ---
Pt with episode of anxiety, increased respirations 38-42. Patient was repositioned by GUIDE ALPINE. Suctioned patient, kept pt comfortable but pt still noted with increased respirations. Unable to calm patient with distraction. Ativan 1mg via GT given PRN as ordered. Will monitor.
--- NOTE | 2017-04-04 10:30 | NUR ---
Pt asleep, no SOB/ no distress. RR 22. Pt kept comfortable. No anxiety noted.
[2017-04-04 19:36] VITALS: BP 128/60
[2017-04-04] MEDS: ASCORBIC ACID 500 MG TABLET GT SCH (20:38)
[2017-04-04] MEDS: PROSOURCE / PROSTAT (PYXIS) 30 ML UDC GT SCH (20:38)
[2017-04-04] MEDS: NYSTATIN TOP POWDER 15 GM BOTTLE TP SCH (20:38)
[2017-04-04] MEDS: MULTIVIT, IRON, MIN NO. 8, FA 1 TAB GT SCH (20:38)
--- NOTE | 2017-04-04 23:00 | NUR ---
@2200 Noted pt with severe anxiety episode l/t sob , during care by linux server administrator, despite explanation to pt that he needed to be repositioned and be cleaned he keeps fighting and refusing care, 2 persons assist needed ; assisted linux server administrator during care, and comforted pt, tx to perineal area and abdominal area applied as ordered. 2216 pt still with anxiety episode l/t sob with resp 50's no desaturation, SPo2 95%, unable to calm pt with non-pharmacologic interventions, PRN Ativan 1 mg given via gt as ordered and continue to monitor.
--- NOTE | 2017-04-04 23:44 | NUR ---
Pt noted sleeping at this time, resp 18 no s/sx of resp. distress noted. Will continue to monitor and anticipate pt's needs.
[2017-04-05] MEDS: SUCRALFATE 1 G/10 ML UDC GT SCH ×6 (00:15→21:30)
[2017-04-05] MEDS: ALBUTEROL FS 2.5 MG/0.5 ML VIAL.NEB NEB SCH ×5 (02:40→19:34)
[2017-04-05] MEDS: POLYVINYL ALCOHOL 15 ML BOTTLE EACHEYE SCH ×3 (05:23→21:30)
[2017-04-05] MEDS: FIBERSOURCE HN 1,000 ML BOTTLE GT PRN (05:23)
[2017-04-05] MEDS: OMEPRAZOLE 20 MG CAPSULE.DR GT SCH (05:23)
[2017-04-05 08:06] VITALS: BP 93/61
[2017-04-05] MEDS: NYSTATIN TOP POWDER 15 GM BOTTLE TP SCH ×2 (09:16→21:30)
[2017-04-05] MEDS: Z GUARD REMEDY 4 OZ OINT TP SCH ×6 (09:16→21:31)
[2017-04-05] MEDS: CHLORHEXIDINE GLUCONATE 15 ML UDC MM SCH ×2 (09:16→17:54)
[2017-04-05] MEDS: PEPCID GT SCH ×2 (09:16→21:30)
[2017-04-05] MEDS: MINERAL OIL/PETROLATUM,WHITE 454 GM JAR TP SCH ×2 (09:16→21:30)
[2017-04-05] MEDS: HYDROGEN PEROXIDE 480 ML BOTTLE TP SCH ×2 (09:16→21:30)
[2017-04-05] MEDS: TRIAMCINOLONE ACETONIDE 0.1% CR 15 GM TUBE TP SCH (09:16)
[2017-04-05] MEDS: OCUSOFT LID SCRUB TP SCH ×2 (09:16→17:54)
[2017-04-05] MEDS: ZINC OXIDE 30 GM TUBE TP SCH ×2 (09:17→21:31)
[2017-04-05] MEDS: LORAZEPAM 1 MG TABLET GT PRN ×2 (09:18→23:59)
--- NOTE | 2017-04-05 09:18 | NUR ---
Pt noted with increased RR 35-39. Suctioned patient with minimal secretions obtained. Pt still noted with increased respirations. Repositioned patient, kept pt comfortable. Pt still noted with anxiety. Pt denied pain. Ativan 1mg via GT given PRN. Will monitor.
[2017-04-05 19:59] VITALS: BP 101/55
[2017-04-05] MEDS: ASCORBIC ACID 500 MG TABLET GT SCH (21:30)
[2017-04-05] MEDS: MULTIVIT, IRON, MIN NO. 8, FA 1 TAB GT SCH (21:30)
[2017-04-05] MEDS: PROSOURCE / PROSTAT (PYXIS) 30 ML UDC GT SCH (21:30)
[2017-04-06] MEDS: SUCRALFATE 1 G/10 ML UDC GT SCH ×6 (00:01→20:10)
[2017-04-06] MEDS: ALBUTEROL FS 2.5 MG/0.5 ML VIAL.NEB NEB SCH ×6 (00:22→23:30)
[2017-04-06] MEDS: TEMAZEPAM 7.5 MG CAPSULE GT PRN ×2 (00:34→21:52)
[2017-04-06] MEDS: MORPHINE SULFATE 10 MG/5 ML GT PRN ×2 (03:54→20:12)
[2017-04-06] MEDS: ONDANSETRON 4 MG TAB.RAPDIS GT PRN ×2 (04:13→10:25)
[2017-04-06] MEDS: POLYVINYL ALCOHOL 15 ML BOTTLE EACHEYE SCH ×3 (05:36→20:10)
[2017-04-06] MEDS: OMEPRAZOLE 20 MG CAPSULE.DR GT SCH (05:36)
[2017-04-06 07:59] VITALS: BP 92/62
[2017-04-06] MEDS: PEPCID GT SCH ×2 (08:55→20:11)
[2017-04-06] MEDS: Z GUARD REMEDY 4 OZ OINT TP SCH ×6 (10:00→20:14)
[2017-04-06] MEDS: OCUSOFT LID SCRUB TP SCH ×2 (10:00→16:54)
[2017-04-06] MEDS: ZINC OXIDE 30 GM TUBE TP SCH ×2 (10:30→20:15)
[2017-04-06] MEDS: HYDROGEN PEROXIDE 480 ML BOTTLE TP SCH ×2 (10:30→20:11)
[2017-04-06] MEDS: CHLORHEXIDINE GLUCONATE 15 ML UDC MM SCH ×2 (10:30→16:54)
[2017-04-06] MEDS: NYSTATIN TOP POWDER 15 GM BOTTLE TP SCH ×2 (10:30→20:11)
[2017-04-06] MEDS: MINERAL OIL/PETROLATUM,WHITE 454 GM JAR TP SCH ×2 (10:30→20:11)
[2017-04-06] MEDS: LORAZEPAM 1 MG TABLET GT PRN (18:54)
--- NOTE | 2017-04-06 19:00 | NUR ---
Notified RADHAMES Ayala that pt has small yellowish discolorations on the rectum. Showed her the picture. Received order for wound consult.
[2017-04-06] MEDS: ASCORBIC ACID 500 MG TABLET GT SCH (20:11)
[2017-04-06] MEDS: PROSOURCE / PROSTAT (PYXIS) 30 ML UDC GT SCH (20:11)
[2017-04-06 20:30] VITALS: BP 147/93
[2017-04-06] MEDS: MULTIVIT, IRON, MIN NO. 8, FA 1 TAB GT SCH (21:31)
[2017-04-07] MEDS: SUCRALFATE 1 G/10 ML UDC GT SCH ×6 (00:33→21:02)
[2017-04-07] MEDS: LORAZEPAM 1 MG TABLET GT PRN ×2 (01:30→10:51)
[2017-04-07] MEDS: ALBUTEROL FS 2.5 MG/0.5 ML VIAL.NEB NEB SCH ×7 (03:30→23:30)
[2017-04-07] MEDS: OMEPRAZOLE 20 MG CAPSULE.DR GT SCH (05:03)
[2017-04-07] MEDS: POLYVINYL ALCOHOL 15 ML BOTTLE EACHEYE SCH ×3 (05:03→21:02)
[2017-04-07] MEDS: MORPHINE SULFATE 10 MG/5 ML GT PRN ×2 (05:03→10:55)
[2017-04-07 08:10] VITALS: BP 82/56
[2017-04-07] MEDS: OCUSOFT LID SCRUB TP SCH ×2 (09:00→17:30)
[2017-04-07] MEDS: CHLORHEXIDINE GLUCONATE 15 ML UDC MM SCH ×2 (09:00→17:30)
[2017-04-07] MEDS: PEPCID GT SCH ×2 (09:00→21:02)
[2017-04-07] MEDS: Z GUARD REMEDY 4 OZ OINT TP SCH ×6 (09:00→21:02)
[2017-04-07] MEDS: HYDROGEN PEROXIDE 480 ML BOTTLE TP SCH ×2 (09:00→21:02)
[2017-04-07] MEDS: ZINC OXIDE 30 GM TUBE TP SCH ×2 (09:00→21:03)
[2017-04-07] MEDS: NYSTATIN TOP POWDER 15 GM BOTTLE TP SCH ×2 (09:00→21:02)
[2017-04-07] MEDS: MINERAL OIL/PETROLATUM,WHITE 454 GM JAR TP SCH ×2 (09:00→21:02)
--- NOTE | 2017-04-07 10:55 | NUR ---
Patient appears to be restless and presents with non-verbal s/s of pain. anxiolytic and analgesic administered as prescribed.
[2017-04-07] MEDS: ONDANSETRON 4 MG TAB.RAPDIS GT PRN (13:31)
--- NOTE | 2017-04-07 13:32 | NUR ---
Patient had one episode of yellow, thin emesis. Patient was suctioned and positioned to the side. Administering PRN Zofran as prescribed.
--- NOTE | 2017-04-07 14:30 | NUR ---
Patient vomited yellowish color,warm to touch.The nurse gave tab zofran ,tab ativan and morphine sulfate .Patient subside vomiting right now.
--- NOTE | 2017-04-07 18:27 | NUR ---
Now the pt is sleeping,no more vomiting .
[2017-04-07 20:03] VITALS: BP 95/64
[2017-04-07] MEDS: ASCORBIC ACID 500 MG TABLET GT SCH (21:02)
[2017-04-07] MEDS: MULTIVIT, IRON, MIN NO. 8, FA 1 TAB GT SCH (21:02)
[2017-04-07] MEDS: PROSOURCE / PROSTAT (PYXIS) 30 ML UDC GT SCH (21:02)
[2017-04-07] MEDS: FIBERSOURCE HN 1,000 ML BOTTLE GT PRN (23:30)
[2017-04-08] MEDS: SUCRALFATE 1 G/10 ML UDC GT SCH ×6 (01:19→20:36)
[2017-04-08] MEDS: ALBUTEROL FS 2.5 MG/0.5 ML VIAL.NEB NEB SCH ×6 (03:30→23:34)
[2017-04-08] MEDS: POLYVINYL ALCOHOL 15 ML BOTTLE EACHEYE SCH ×3 (05:32→20:36)
[2017-04-08] MEDS: OMEPRAZOLE 20 MG CAPSULE.DR GT SCH (05:32)
[2017-04-08 08:16] VITALS: BP 82/53
[2017-04-08] MEDS: CHLORHEXIDINE GLUCONATE 15 ML UDC MM SCH ×2 (09:19→17:40)
[2017-04-08] MEDS: PEPCID GT SCH ×2 (09:19→20:36)
[2017-04-08] MEDS: HYDROGEN PEROXIDE 480 ML BOTTLE TP SCH ×2 (09:19→20:36)
[2017-04-08] MEDS: OCUSOFT LID SCRUB TP SCH ×2 (09:19→17:40)
[2017-04-08] MEDS: NYSTATIN TOP POWDER 15 GM BOTTLE TP SCH ×2 (09:19→20:36)
[2017-04-08] MEDS: MINERAL OIL/PETROLATUM,WHITE 454 GM JAR TP SCH ×2 (09:19→20:36)
[2017-04-08] MEDS: Z GUARD REMEDY 4 OZ OINT TP SCH ×6 (09:20→20:37)
[2017-04-08] MEDS: ZINC OXIDE 30 GM TUBE TP SCH ×2 (09:20→20:37)
--- NOTE | 2017-04-08 15:19 | NUR ---
WOUND CARE CONSULT: RECEIVED WOUND CONSULT FOR RECTAL AREA. PT SLEEPING AT THIS TIME. DR JOY EXAMINED PHOTO OF PT'S RECTAL PROLAPSE. DR NILS FLORES CONSULTED. WILL SEE PRN. DEFER TO .
--- NOTE | 2017-04-08 17:48 | NUR ---
Seen and examined by FORGESMITH Sobia Hunt for possible prolapse but according to Ms Sobia, she thinks it is likely hemorrhoid. She does not recommend any surgical intervention. Notified Dr. Vance of episode of diarrhea x2 with new order for stool for C. diff. Order noted and carried out. Left a message to resident's daughter regarding consult and episode of diarrhea.
[2017-04-08 20:03] VITALS: BP 91/58
[2017-04-08] MEDS: PROSOURCE / PROSTAT (PYXIS) 30 ML UDC GT SCH (20:36)
[2017-04-08] MEDS: ASCORBIC ACID 500 MG TABLET GT SCH (20:36)
[2017-04-08] MEDS: MULTIVIT, IRON, MIN NO. 8, FA 1 TAB GT SCH (20:36)
[2017-04-09] MEDS: SUCRALFATE 1 G/10 ML UDC GT SCH ×6 (00:11→21:42)
[2017-04-09] MEDS: ALBUTEROL FS 2.5 MG/0.5 ML VIAL.NEB NEB SCH ×6 (03:41→23:30)
[2017-04-09] MEDS: POLYVINYL ALCOHOL 15 ML BOTTLE EACHEYE SCH ×3 (05:30→21:42)
[2017-04-09] MEDS: OMEPRAZOLE 20 MG CAPSULE.DR GT SCH (05:30)
[2017-04-09] MEDS: FIBERSOURCE HN 1,000 ML BOTTLE GT PRN ×2 (06:18→22:49)
[2017-04-09 07:40] VITALS: BP 91/62
[2017-04-09] MEDS: CHLORHEXIDINE GLUCONATE 15 ML UDC MM SCH ×2 (08:44→16:37)
[2017-04-09] MEDS: HYDROGEN PEROXIDE 480 ML BOTTLE TP SCH ×2 (08:44→21:43)
[2017-04-09] MEDS: MINERAL OIL/PETROLATUM,WHITE 454 GM JAR TP SCH ×2 (08:44→21:43)
[2017-04-09] MEDS: OCUSOFT LID SCRUB TP SCH ×2 (08:45→16:37)
[2017-04-09] MEDS: Z GUARD REMEDY 4 OZ OINT TP SCH ×6 (08:45→21:44)
[2017-04-09] MEDS: ZINC OXIDE 30 GM TUBE TP SCH ×2 (08:45→21:44)
[2017-04-09] MEDS: NYSTATIN TOP POWDER 15 GM BOTTLE TP SCH ×2 (08:45→21:43)
[2017-04-09] MEDS: PEPCID GT SCH ×2 (08:48→21:43)
--- NOTE | 2017-04-09 09:15 | NUR ---
patient refusing suctioning
[2017-04-09] MEDS: PROSOURCE / PROSTAT (PYXIS) 30 ML UDC GT SCH (21:43)
[2017-04-09] MEDS: MULTIVIT, IRON, MIN NO. 8, FA 1 TAB GT SCH (21:43)
[2017-04-09] MEDS: ASCORBIC ACID 500 MG TABLET GT SCH (21:43)
[2017-04-10] MEDS: SUCRALFATE 1 G/10 ML UDC GT SCH ×6 (00:08→20:20)
[2017-04-10 02:24] VITALS: BP 105/66
[2017-04-10] MEDS: ALBUTEROL FS 2.5 MG/0.5 ML VIAL.NEB NEB SCH ×6 (03:12→23:31)
[2017-04-10] MEDS: POLYVINYL ALCOHOL 15 ML BOTTLE EACHEYE SCH ×3 (05:50→20:20)
[2017-04-10] MEDS: OMEPRAZOLE 20 MG CAPSULE.DR GT SCH (05:50)
[2017-04-10 07:40] VITALS: BP 105/63
[2017-04-10] MEDS: OCUSOFT LID SCRUB TP SCH ×2 (08:26→17:00)
[2017-04-10] MEDS: MINERAL OIL/PETROLATUM,WHITE 454 GM JAR TP SCH ×2 (08:26→20:21)
[2017-04-10] MEDS: HYDROGEN PEROXIDE 480 ML BOTTLE TP SCH ×2 (08:26→20:21)
[2017-04-10] MEDS: Z GUARD REMEDY 4 OZ OINT TP SCH ×6 (08:26→20:21)
[2017-04-10] MEDS: PEPCID GT SCH ×2 (08:26→20:20)
[2017-04-10] MEDS: CHLORHEXIDINE GLUCONATE 15 ML UDC MM SCH ×2 (08:26→17:00)
[2017-04-10] MEDS: NYSTATIN TOP POWDER 15 GM BOTTLE TP SCH ×2 (08:26→20:21)
[2017-04-10] MEDS: ZINC OXIDE 30 GM TUBE TP SCH ×2 (08:27→20:21)
--- NOTE | 2017-04-10 15:40 | NUR ---
Seen and examined by Dr. Vance notified of positive stool for C. diff result. New order given to start patient on Vancomycin 250 mg. /GT Q 6 hours x 14 days and observe contact isolation. SSD to notify family member regarding room change due to isolation. [facility] and [facility] notified of new order. According to [facility], they will deliver the medication today and will give as soon as it is available.
--- NOTE | 2017-04-10 15:50 | NUR ---
Dtr Olivia informed that resident was moved to room 273 due to isolation for c-diff. Appreciated the information.
--- NOTE | 2017-04-10 18:00 | NUR ---
Vancomycin will be given when medication available.charge nurse and pharmacy made aware.
[2017-04-10] MEDS: VANCOMYCIN HCL 125 MG/2.5 ML ORAL.SUSP GT SCH ×2 (19:00→23:21)
[2017-04-10 20:11] VITALS: BP 111/68
[2017-04-10] MEDS: PROSOURCE / PROSTAT (PYXIS) 30 ML UDC GT SCH (20:20)
[2017-04-10] MEDS: MULTIVIT, IRON, MIN NO. 8, FA 1 TAB GT SCH (20:20)
[2017-04-10] MEDS: ASCORBIC ACID 500 MG TABLET GT SCH (20:20)
[2017-04-11] MEDS: SUCRALFATE 1 G/10 ML UDC GT SCH ×6 (01:45→20:28)
[2017-04-11] MEDS: ALBUTEROL FS 2.5 MG/0.5 ML VIAL.NEB NEB SCH ×6 (02:30→23:17)
[2017-04-11] MEDS: POLYVINYL ALCOHOL 15 ML BOTTLE EACHEYE SCH ×3 (05:10→20:28)
[2017-04-11] MEDS: VANCOMYCIN HCL 125 MG/2.5 ML ORAL.SUSP GT SCH ×4 (05:10→23:21)
[2017-04-11] MEDS: OMEPRAZOLE 20 MG CAPSULE.DR GT SCH (05:10)
[2017-04-11] MEDS: FIBERSOURCE HN 1,000 ML BOTTLE GT PRN (05:11)
[2017-04-11 08:16] VITALS: BP 100/69
[2017-04-11] MEDS: PEPCID GT SCH ×2 (09:36→20:28)
[2017-04-11] MEDS: CHLORHEXIDINE GLUCONATE 15 ML UDC MM SCH ×2 (09:36→17:45)
[2017-04-11] MEDS: HYDROGEN PEROXIDE 480 ML BOTTLE TP SCH ×2 (09:36→20:28)
[2017-04-11] MEDS: MINERAL OIL/PETROLATUM,WHITE 454 GM JAR TP SCH ×2 (09:36→20:28)
[2017-04-11] MEDS: OCUSOFT LID SCRUB TP SCH ×2 (09:36→17:45)
[2017-04-11] MEDS: NYSTATIN TOP POWDER 15 GM BOTTLE TP SCH ×2 (09:37→20:28)
[2017-04-11] MEDS: Z GUARD REMEDY 4 OZ OINT TP SCH ×6 (09:37→20:29)
[2017-04-11] MEDS: ZINC OXIDE 30 GM TUBE TP SCH ×2 (09:38→20:29)
[2017-04-11 20:12] VITALS: BP 107/63
[2017-04-11] MEDS: ASCORBIC ACID 500 MG TABLET GT SCH (20:28)
[2017-04-11] MEDS: MULTIVIT, IRON, MIN NO. 8, FA 1 TAB GT SCH (20:28)
[2017-04-11] MEDS: PROSOURCE / PROSTAT (PYXIS) 30 ML UDC GT SCH (20:28)
[2017-04-12] MEDS: SUCRALFATE 1 G/10 ML UDC GT SCH ×6 (00:18→20:26)
[2017-04-12] MEDS: FIBERSOURCE HN 1,000 ML BOTTLE GT PRN ×2 (00:19→18:34)
[2017-04-12] MEDS: ALBUTEROL FS 2.5 MG/0.5 ML VIAL.NEB NEB SCH ×6 (03:39→22:31)
[2017-04-12] MEDS: OMEPRAZOLE 20 MG CAPSULE.DR GT SCH (05:29)
[2017-04-12] MEDS: VANCOMYCIN HCL 125 MG/2.5 ML ORAL.SUSP GT SCH ×3 (05:29→17:19)
[2017-04-12] MEDS: POLYVINYL ALCOHOL 15 ML BOTTLE EACHEYE SCH ×3 (05:29→20:26)
[2017-04-12] MEDS: SIMETHICONE SUSP 40 MG/0.6 ML BOTTLE GT PRN (05:30)
[2017-04-12 08:12] VITALS: BP 76/61
[2017-04-12] MEDS: Z GUARD REMEDY 4 OZ OINT TP SCH ×6 (09:00→20:27)
[2017-04-12] MEDS: HYDROGEN PEROXIDE 480 ML BOTTLE TP SCH ×2 (09:00→20:27)
[2017-04-12] MEDS: ZINC OXIDE 30 GM TUBE TP SCH (09:00)
[2017-04-12] MEDS: CHLORHEXIDINE GLUCONATE 15 ML UDC MM SCH ×2 (09:00→16:39)
[2017-04-12] MEDS: MINERAL OIL/PETROLATUM,WHITE 454 GM JAR TP SCH ×2 (09:00→20:27)
[2017-04-12] MEDS: NYSTATIN TOP POWDER 15 GM BOTTLE TP SCH ×2 (09:00→20:27)
[2017-04-12] MEDS: PEPCID GT SCH ×2 (09:00→20:26)
[2017-04-12] MEDS: OCUSOFT LID SCRUB TP SCH ×2 (09:00→16:39)
--- NOTE | 2017-04-12 15:54 | NUR ---
tx held at this time. pt received hhn tx at 1330
[2017-04-12 19:36] VITALS: BP 107/71
[2017-04-12] MEDS: PROSOURCE / PROSTAT (PYXIS) 30 ML UDC GT SCH (20:27)
[2017-04-12] MEDS: ASCORBIC ACID 500 MG TABLET GT SCH (20:27)
[2017-04-12] MEDS: MULTIVIT, IRON, MIN NO. 8, FA 1 TAB GT SCH (20:27)
[2017-04-13] MEDS: SUCRALFATE 1 G/10 ML UDC GT SCH ×6 (00:25→21:16)
[2017-04-13] MEDS: ALBUTEROL FS 2.5 MG/0.5 ML VIAL.NEB NEB SCH ×6 (04:20→23:51)
[2017-04-13] MEDS: VANCOMYCIN HCL 125 MG/2.5 ML ORAL.SUSP GT SCH ×5 (05:11→23:32)
[2017-04-13] MEDS: POLYVINYL ALCOHOL 15 ML BOTTLE EACHEYE SCH ×3 (05:11→21:19)
[2017-04-13] MEDS: OMEPRAZOLE 20 MG CAPSULE.DR GT SCH (05:11)
[2017-04-13 08:13] VITALS: BP 112/71
[2017-04-13] MEDS: PEPCID GT SCH ×2 (09:02→21:21)
[2017-04-13] MEDS: CHLORHEXIDINE GLUCONATE 15 ML UDC MM SCH ×2 (09:03→17:06)
[2017-04-13] MEDS: NYSTATIN TOP POWDER 15 GM BOTTLE TP SCH ×2 (09:03→21:18)
[2017-04-13] MEDS: MINERAL OIL/PETROLATUM,WHITE 454 GM JAR TP SCH ×2 (09:03→21:20)
[2017-04-13] MEDS: OCUSOFT LID SCRUB TP SCH ×2 (09:03→17:06)
[2017-04-13] MEDS: HYDROGEN PEROXIDE 480 ML BOTTLE TP SCH ×2 (09:03→21:17)
[2017-04-13] MEDS: Z GUARD REMEDY 4 OZ OINT TP SCH ×6 (09:03→21:18)
[2017-04-13] MEDS: IPRATROPIUM NEB FS 0.5 MG/2.5 ML AMPUL.NEB NEB SCH ×2 (19:44→23:51)
[2017-04-13 20:36] VITALS: BP 105/62
[2017-04-13] MEDS: MULTIVIT, IRON, MIN NO. 8, FA 1 TAB GT SCH (21:16)
[2017-04-13] MEDS: PROSOURCE / PROSTAT (PYXIS) 30 ML UDC GT SCH (21:17)
[2017-04-13] MEDS: ASCORBIC ACID 500 MG TABLET GT SCH (21:19)
[2017-04-14] MEDS: SUCRALFATE 1 G/10 ML UDC GT SCH ×6 (00:05→21:39)
[2017-04-14] MEDS: ALBUTEROL FS 2.5 MG/0.5 ML VIAL.NEB NEB SCH ×6 (03:08→23:36)
[2017-04-14] MEDS: IPRATROPIUM NEB FS 0.5 MG/2.5 ML AMPUL.NEB NEB SCH ×6 (03:08→23:36)
[2017-04-14] MEDS: VANCOMYCIN HCL 125 MG/2.5 ML ORAL.SUSP GT SCH ×3 (05:23→17:34)
[2017-04-14] MEDS: POLYVINYL ALCOHOL 15 ML BOTTLE EACHEYE SCH ×3 (05:23→21:39)
[2017-04-14] MEDS: FIBERSOURCE HN 1,000 ML BOTTLE GT PRN ×2 (05:26→22:46)
[2017-04-14] MEDS: OMEPRAZOLE 20 MG CAPSULE.DR GT SCH (05:37)
[2017-04-14 08:00] VITALS: BP 135/72
[2017-04-14] MEDS: OCUSOFT LID SCRUB TP SCH ×2 (09:05→17:34)
[2017-04-14] MEDS: Z GUARD REMEDY 4 OZ OINT TP SCH ×5 (09:05→21:40)
[2017-04-14] MEDS: HYDROGEN PEROXIDE 480 ML BOTTLE TP SCH ×2 (09:05→21:40)
[2017-04-14] MEDS: NYSTATIN TOP POWDER 15 GM BOTTLE TP SCH ×2 (09:05→21:40)
[2017-04-14] MEDS: MINERAL OIL/PETROLATUM,WHITE 454 GM JAR TP SCH ×2 (09:05→21:40)
[2017-04-14] MEDS: PEPCID GT SCH ×2 (09:05→21:39)
[2017-04-14] MEDS: CHLORHEXIDINE GLUCONATE 15 ML UDC MM SCH ×2 (09:05→17:33)
[2017-04-14 19:37] VITALS: BP 100/68
[2017-04-14] MEDS: MULTIVIT, IRON, MIN NO. 8, FA 1 TAB GT SCH (21:40)
[2017-04-14] MEDS: PROSOURCE / PROSTAT (PYXIS) 30 ML UDC GT SCH (21:40)
[2017-04-14] MEDS: ASCORBIC ACID 500 MG TABLET GT SCH (21:40)
[2017-04-15] MEDS: SUCRALFATE 1 G/10 ML UDC GT SCH ×6 (00:50→20:10)
[2017-04-15] MEDS: VANCOMYCIN HCL 125 MG/2.5 ML ORAL.SUSP GT SCH ×4 (00:50→18:45)
[2017-04-15] MEDS: IPRATROPIUM NEB FS 0.5 MG/2.5 ML AMPUL.NEB NEB SCH ×6 (02:49→23:12)
[2017-04-15] MEDS: ALBUTEROL FS 2.5 MG/0.5 ML VIAL.NEB NEB SCH ×6 (02:49→23:12)
[2017-04-15] MEDS: POLYVINYL ALCOHOL 15 ML BOTTLE EACHEYE SCH ×3 (05:10→20:10)
[2017-04-15] MEDS: OMEPRAZOLE 20 MG CAPSULE.DR GT SCH (05:10)
[2017-04-15 07:54] VITALS: BP 89/55
[2017-04-15] MEDS: HYDROGEN PEROXIDE 480 ML BOTTLE TP SCH ×2 (09:00→20:11)
[2017-04-15] MEDS: CHLORHEXIDINE GLUCONATE 15 ML UDC MM SCH ×2 (09:00→16:45)
[2017-04-15] MEDS: PEPCID GT SCH ×2 (09:00→20:10)
[2017-04-15] MEDS: Z GUARD REMEDY 4 OZ OINT TP SCH ×4 (09:00→20:11)
[2017-04-15] MEDS: OCUSOFT LID SCRUB TP SCH ×2 (09:00→16:45)
[2017-04-15] MEDS: MINERAL OIL/PETROLATUM,WHITE 454 GM JAR TP SCH ×2 (09:00→20:10)
[2017-04-15] MEDS: NYSTATIN TOP POWDER 15 GM BOTTLE TP SCH ×2 (09:00→20:11)
--- NOTE | 2017-04-15 11:42 | NUR ---
Dtr informed of IDT meeting this Thursday from 12:30-1:30pm. She reports that her work schedule makes it difficult to attend and will not be able to come in. SW informed that she can also call to receive an update on resident's condition if she wishes.
[2017-04-15] MEDS: PROSOURCE / PROSTAT (PYXIS) 30 ML UDC GT SCH (20:10)
[2017-04-15] MEDS: ASCORBIC ACID 500 MG TABLET GT SCH (20:10)
[2017-04-15] MEDS: MULTIVIT, IRON, MIN NO. 8, FA 1 TAB GT SCH (20:10)
[2017-04-15] MEDS: MORPHINE SULFATE 10 MG/5 ML GT PRN (20:11)
[2017-04-16] MEDS: SUCRALFATE 1 G/10 ML UDC GT SCH ×6 (00:23→20:38)
[2017-04-16] MEDS: VANCOMYCIN HCL 125 MG/2.5 ML ORAL.SUSP GT SCH ×5 (00:23→23:23)
[2017-04-16] MEDS: IPRATROPIUM NEB FS 0.5 MG/2.5 ML AMPUL.NEB NEB SCH ×6 (03:31→23:36)
[2017-04-16] MEDS: ALBUTEROL FS 2.5 MG/0.5 ML VIAL.NEB NEB SCH ×6 (03:31→23:36)
[2017-04-16] MEDS: OMEPRAZOLE 20 MG CAPSULE.DR GT SCH (05:44)
[2017-04-16] MEDS: POLYVINYL ALCOHOL 15 ML BOTTLE EACHEYE SCH ×3 (05:44→20:38)
[2017-04-16 08:01] VITALS: BP 103/64
[2017-04-16] MEDS: HYDROGEN PEROXIDE 480 ML BOTTLE TP SCH ×2 (09:12→20:38)
[2017-04-16] MEDS: PEPCID GT SCH ×2 (09:12→20:38)
[2017-04-16] MEDS: NYSTATIN TOP POWDER 15 GM BOTTLE TP SCH ×2 (09:12→20:38)
[2017-04-16] MEDS: CHLORHEXIDINE GLUCONATE 15 ML UDC MM SCH ×2 (09:12→16:58)
[2017-04-16] MEDS: OCUSOFT LID SCRUB TP SCH ×2 (09:12→16:58)
[2017-04-16] MEDS: MINERAL OIL/PETROLATUM,WHITE 454 GM JAR TP SCH ×2 (09:12→20:38)
[2017-04-16] MEDS: Z GUARD REMEDY 4 OZ OINT TP SCH ×4 (09:13→20:38)
[2017-04-16 20:11] VITALS: BP 98/66
[2017-04-16] MEDS: MULTIVIT, IRON, MIN NO. 8, FA 1 TAB GT SCH (20:38)
[2017-04-16] MEDS: PROSOURCE / PROSTAT (PYXIS) 30 ML UDC GT SCH (20:38)
[2017-04-16] MEDS: ASCORBIC ACID 500 MG TABLET GT SCH (20:38)
[2017-04-16] MEDS: SIMETHICONE SUSP 40 MG/0.6 ML BOTTLE GT PRN (20:39)
[2017-04-16] MEDS: TEMAZEPAM 7.5 MG CAPSULE GT PRN (23:25)
--- NOTE | 2017-04-16 23:26 | NUR ---
Noted pt still awake, and having difficulty sleeping, despite good bed bath given, repositioning and quiet environment , denies pain or discomfort at this time, PRN Restoril 7.5mg given as ordered for insomnia. Will cont to monitor and anticipate pt's needs.
[2017-04-17] MEDS: SUCRALFATE 1 G/10 ML UDC GT SCH ×6 (00:34→20:41)
[2017-04-17] MEDS: IPRATROPIUM NEB FS 0.5 MG/2.5 ML AMPUL.NEB NEB SCH ×6 (03:37→23:10)
[2017-04-17] MEDS: ALBUTEROL FS 2.5 MG/0.5 ML VIAL.NEB NEB SCH ×6 (03:37→23:10)
[2017-04-17] MEDS: OMEPRAZOLE 20 MG CAPSULE.DR GT SCH (05:09)
[2017-04-17] MEDS: VANCOMYCIN HCL 125 MG/2.5 ML ORAL.SUSP GT SCH ×3 (05:09→17:17)
[2017-04-17] MEDS: POLYVINYL ALCOHOL 15 ML BOTTLE EACHEYE SCH ×3 (05:09→20:41)
[2017-04-17] MEDS: FIBERSOURCE HN 1,000 ML BOTTLE GT PRN ×2 (05:09→18:31)
--- NOTE | 2017-04-17 07:01 | NUR ---
PT SLEPT GOOD AFTER PRN TEMAZEPAM GIVEN, NO A/R NOTED, NO RESP. DISTRESS, TOLERATED MEDS, GTF WATER FLUSHES AND AM CARE. SAFETY MEASURES NOTED.
[2017-04-17 07:40] VITALS: BP 113/55
[2017-04-17] MEDS: PEPCID GT SCH ×2 (09:32→20:41)
[2017-04-17] MEDS: MINERAL OIL/PETROLATUM,WHITE 454 GM JAR TP SCH ×2 (09:32→20:43)
[2017-04-17] MEDS: CHLORHEXIDINE GLUCONATE 15 ML UDC MM SCH ×2 (09:32→17:17)
[2017-04-17] MEDS: OCUSOFT LID SCRUB TP SCH ×2 (09:32→17:17)
[2017-04-17] MEDS: HYDROGEN PEROXIDE 480 ML BOTTLE TP SCH ×2 (09:32→20:43)
[2017-04-17] MEDS: Z GUARD REMEDY 4 OZ OINT TP SCH ×4 (09:33→20:43)
[2017-04-17] MEDS: NYSTATIN TOP POWDER 15 GM BOTTLE TP SCH ×2 (09:33→20:43)
[2017-04-17] MEDS: SIMETHICONE SUSP 40 MG/0.6 ML BOTTLE GT PRN ×2 (09:33→20:45)
[2017-04-17] MEDS: ACETAMINOPHEN 650 MG/20 ML UDC- FOR SA PATIENTS ONLY GT PRN (09:33)
--- NOTE | 2017-04-17 13:44 | NUR ---
IDT meeting held, reviewed current orders, medications, recent lab result, treatments and care plan. Upon review of patient's medications, the end of therapy for Restoril and Ativan is today. Dr. Reese said to continue Restoril and Ativan for another 14 days and then re-evaluate. Also obtain and order for GI Consult due to granuloma in the GT site. Orders noted and carried out.
--- NOTE | 2017-04-17 16:25 | NUR ---
Rosa Lilly, SNOWBOARDING INSTRUCTOR for Dr. Gallo saw resident's GT with new order to culture GT site due to presence of yellowish discharge leaking out from the stoma and local treatment of triple ATB. Order noted and carried out. She said she will wait for the result of the culture before addressing patient's GT granuloma.
[2017-04-17] MEDS ORDERED: LORAZEPAM 1 MG TABLET GT PRN (16:30)
[2017-04-17 20:11] VITALS: BP 102/73
[2017-04-17] MEDS: MULTIVIT, IRON, MIN NO. 8, FA 1 TAB GT SCH (20:41)
[2017-04-17] MEDS: PROSOURCE / PROSTAT (PYXIS) 30 ML UDC GT SCH (20:41)
[2017-04-17] MEDS: ASCORBIC ACID 500 MG TABLET GT SCH (20:42)
[2017-04-17] MEDS: NEOMY SULF/BACITRAC ZN/POLY 15 GM TUBE TP SCH (20:43)
[2017-04-17] MEDS: TEMAZEPAM 7.5 MG CAPSULE GT PRN (22:57)
--- NOTE | 2017-04-17 22:57 | NUR ---
PT REMAINS AWAKE HAVING DIFFICULTY SLEEPING DESPITE GOOD BED BATH GIVEN, DENIES PAIN AT THIS TIME, KEPT CLEAN AND DRY, REPOSITIONED. PRN TEMAZEPAM VIA GT GIVEN ORDERED FOR INSOMNIA. WILL CONT TO MONITOR.
--- NOTE | 2017-04-18 00:08 | NUR ---
Pt comfortably sleeping at this time, clean and dry. Due meds with h20 flush given, continue to monitor and anticipate needs.
[2017-04-18] MEDS: SUCRALFATE 1 G/10 ML UDC GT SCH ×6 (00:48→20:32)
[2017-04-18] MEDS: VANCOMYCIN HCL 125 MG/2.5 ML ORAL.SUSP GT SCH ×5 (00:48→23:40)
[2017-04-18] MEDS: IPRATROPIUM NEB FS 0.5 MG/2.5 ML AMPUL.NEB NEB SCH ×6 (02:48→23:13)
[2017-04-18] MEDS: ALBUTEROL FS 2.5 MG/0.5 ML VIAL.NEB NEB SCH ×6 (02:48→23:13)
[2017-04-18] MEDS: POLYVINYL ALCOHOL 15 ML BOTTLE EACHEYE SCH ×3 (05:18→20:32)
[2017-04-18] MEDS: OMEPRAZOLE 20 MG CAPSULE.DR GT SCH (05:18)
[2017-04-18 07:34] VITALS: BP 97/59
[2017-04-18] MEDS: NEOMY SULF/BACITRAC ZN/POLY 15 GM TUBE TP SCH ×2 (09:00→20:32)
[2017-04-18] MEDS: Z GUARD REMEDY 4 OZ OINT TP SCH ×4 (09:00→20:32)
[2017-04-18] MEDS: NYSTATIN TOP POWDER 15 GM BOTTLE TP SCH ×2 (09:00→20:32)
[2017-04-18] MEDS: CHLORHEXIDINE GLUCONATE 15 ML UDC MM SCH ×2 (09:23→17:33)
[2017-04-18] MEDS: HYDROGEN PEROXIDE 480 ML BOTTLE TP SCH ×2 (09:23→20:32)
[2017-04-18] MEDS: MINERAL OIL/PETROLATUM,WHITE 454 GM JAR TP SCH ×2 (09:23→20:32)
[2017-04-18] MEDS: OCUSOFT LID SCRUB TP SCH ×2 (09:23→17:33)
[2017-04-18] MEDS: PEPCID GT SCH ×2 (09:23→20:32)
[2017-04-18] MEDS: FIBERSOURCE HN 1,000 ML BOTTLE GT PRN (12:56)
--- NOTE | 2017-04-18 15:22 | NUR ---
Left a message to resident's daughter Amanda regarding GI consult due to granuloma in the GT site, local treatment and culture.
[2017-04-18 20:10] VITALS: BP 97/62
[2017-04-18] MEDS: ASCORBIC ACID 500 MG TABLET GT SCH (20:32)
[2017-04-18] MEDS: MULTIVIT, IRON, MIN NO. 8, FA 1 TAB GT SCH (20:32)
[2017-04-18] MEDS: PROSOURCE / PROSTAT (PYXIS) 30 ML UDC GT SCH (20:32)
[2017-04-18] MEDS: TEMAZEPAM 7.5 MG CAPSULE GT PRN (23:47)
--- NOTE | 2017-04-18 23:50 | NUR ---
PRN TEMAZEPAM GIVEN TO PT D/T INSOMNIA, PT STILL WIDE AWAKE, BED BATH DONE, AND REPOSITIONED, KEPT CLEAN AND DRY, DENIES PAIN OR DISCOMFORT AT THIS TIME, NO FACIAL GRIMACING NOTED. WILL CONT TO MONITOR.
[2017-04-19] MEDS: SUCRALFATE 1 G/10 ML UDC GT SCH ×6 (00:29→21:02)
[2017-04-19] MEDS: IPRATROPIUM NEB FS 0.5 MG/2.5 ML AMPUL.NEB NEB SCH ×6 (02:06→23:13)
[2017-04-19] MEDS: ALBUTEROL FS 2.5 MG/0.5 ML VIAL.NEB NEB SCH ×6 (02:06→23:13)
[2017-04-19] MEDS: FIBERSOURCE HN 1,000 ML BOTTLE GT PRN ×2 (03:29→18:07)
[2017-04-19] MEDS: OMEPRAZOLE 20 MG CAPSULE.DR GT SCH (05:22)
[2017-04-19] MEDS: VANCOMYCIN HCL 125 MG/2.5 ML ORAL.SUSP GT SCH ×4 (05:22→23:32)
[2017-04-19] MEDS: POLYVINYL ALCOHOL 15 ML BOTTLE EACHEYE SCH ×3 (05:22→21:02)
--- NOTE | 2017-04-19 05:50 | NUR ---
PT SLEPT GOOD AFTER PRN TEMAZEPAM GIVEN LAST NIGHT, NO A/R NOTED NO S/SX OF RESP DISTRESS NOTED. TOLERATED MEDS, GTF, WATER FLUSHES. STILL ON CONTACT ISO FOR C.DIFF, ONGOING ATB VIA GT. ALL DUE MEDS GIVEN AND TOLERATED WELL WITH NO A/E NOTED. 2 X LOOSE BM DURING SHIFT. SAFETY AND COMFORT NOTED. KEPT PT CLEAN AND DRY. CALL LIGHT WITHIN REACH.
[2017-04-19 07:38] VITALS: BP 98/56
[2017-04-19] MEDS: PEPCID GT SCH ×2 (09:34→21:02)
[2017-04-19] MEDS: CHLORHEXIDINE GLUCONATE 15 ML UDC MM SCH ×2 (09:34→16:32)
[2017-04-19] MEDS: HYDROGEN PEROXIDE 480 ML BOTTLE TP SCH ×2 (09:34→21:02)
[2017-04-19] MEDS: MINERAL OIL/PETROLATUM,WHITE 454 GM JAR TP SCH ×2 (09:34→21:02)
[2017-04-19] MEDS: NYSTATIN TOP POWDER 15 GM BOTTLE TP SCH ×2 (09:34→21:03)
[2017-04-19] MEDS: NEOMY SULF/BACITRAC ZN/POLY 15 GM TUBE TP SCH ×2 (09:34→21:03)
[2017-04-19] MEDS: OCUSOFT LID SCRUB TP SCH ×2 (09:34→16:32)
[2017-04-19] MEDS: Z GUARD REMEDY 4 OZ OINT TP SCH ×4 (09:35→21:03)
[2017-04-19 21:00] VITALS: BP 103/57
[2017-04-19] MEDS: MULTIVIT, IRON, MIN NO. 8, FA 1 TAB GT SCH (21:02)
[2017-04-19] MEDS: ASCORBIC ACID 500 MG TABLET GT SCH (21:02)
[2017-04-19] MEDS: PROSOURCE / PROSTAT (PYXIS) 30 ML UDC GT SCH (21:02)
[2017-04-20] MEDS: SUCRALFATE 1 G/10 ML UDC GT SCH ×6 (00:37→20:42)
[2017-04-20] MEDS: ALBUTEROL FS 2.5 MG/0.5 ML VIAL.NEB NEB SCH ×6 (03:30→23:30)
[2017-04-20] MEDS: IPRATROPIUM NEB FS 0.5 MG/2.5 ML AMPUL.NEB NEB SCH ×6 (03:30→23:30)
[2017-04-20] MEDS: POLYVINYL ALCOHOL 15 ML BOTTLE EACHEYE SCH ×3 (05:30→20:42)
[2017-04-20] MEDS: OMEPRAZOLE 20 MG CAPSULE.DR GT SCH (05:31)
[2017-04-20] MEDS: VANCOMYCIN HCL 125 MG/2.5 ML ORAL.SUSP GT SCH ×4 (05:32→23:13)
[2017-04-20 08:20] VITALS: BP 107/67
[2017-04-20] MEDS: OCUSOFT LID SCRUB TP SCH ×2 (08:57→17:11)
[2017-04-20] MEDS: PEPCID GT SCH ×2 (08:57→20:43)
[2017-04-20] MEDS: MINERAL OIL/PETROLATUM,WHITE 454 GM JAR TP SCH ×2 (08:57→20:43)
[2017-04-20] MEDS: CHLORHEXIDINE GLUCONATE 15 ML UDC MM SCH ×2 (08:57→17:10)
[2017-04-20] MEDS: Z GUARD REMEDY 4 OZ OINT TP SCH ×4 (08:57→20:43)
[2017-04-20] MEDS: HYDROGEN PEROXIDE 480 ML BOTTLE TP SCH ×2 (08:57→20:43)
[2017-04-20] MEDS: NYSTATIN TOP POWDER 15 GM BOTTLE TP SCH ×2 (08:57→20:43)
[2017-04-20] MEDS: NEOMY SULF/BACITRAC ZN/POLY 15 GM TUBE TP SCH ×2 (08:57→20:43)
[2017-04-20] MEDS: FIBERSOURCE HN 1,000 ML BOTTLE GT PRN (10:57)
[2017-04-20 13:34] LABS: ALANINE AMINOTRANSFERASE 35 U/L (12-78); ALBUMIN 1.8 g/dL (3.4-5.0); ALKALINE PHOSPHATASE 182 U/L (46-116); ASPARTATE AMINOTRANSFERASE 34 U/L (15-37); BILIRUBIN,TOTAL 0.2 mg/dL (0.2-1.0); CALCIUM, SERUM 9.1 mg/dL (8.5-10.1); CARBON DIOXIDE 29 mmol/L (21-32); CHLORIDE 102 mmol/L (98-107); CREATININE 0.7 mg/dL (0.6-1.3); GLUCOSE 134 mg/dL (74-106); SODIUM SERUM 136 mmol/L (136-145); TOTAL PROTEIN, SERUM 7.4 g/dL (6.4-8.2); UREA NITROGEN, BLOOD 23 mg/dL (7-18)
[2017-04-20 13:37] LABS: BASOPHILS % (AUTO) 0.3 % (0.0-2.0); EOSINOPHILS # (AUTO) 0.1 /CMM (0.0-0.7); EOSINOPHILS % (AUTO) 0.6 % (0.0-6.0); HEMATOCRIT 24 % (39-51); HEMOGLOBIN 7.8 g/dL (13.5-17.5); LYMPHOCYTES # (AUTO) 1.8 /CMM (0.8-4.8); LYMPHOCYTES % (AUTO) 20.1 % (20.0-44.0); MEAN CORPUSCULAR HEMOGLOBIN 27 PG (26.0-33.0); MEAN CORPUSCULAR HGB CONC 32 g/dl (31.0-36.0); MEAN CORPUSCULAR VOLUME 83 fL (80-96); MONOCYTES # (AUTO) 0.4 /CMM (0.1-1.30); MONOCYTES % (AUTO) 4.5 % (2.0-12.0); NEUTROPHILS # (AUTO) 6.5 /CMM (1.8-8.9); NEUTROPHILS % (AUTO) 74.5 % (43.0-81.0); PLATELET COUNT (AUTO) 434 /CMM (150-450); RDW COEFFICIENT OF VARIATION 18.3 (11.5-15.0); WHITE BLOOD COUNT (AUTO) 8.8 K/uL (4.3-11.0)
--- NOTE | 2017-04-20 15:00 | NUR ---
Relayed CBC and CMP results to RADHAMES Lilly. Also relayed wound culture result to her (GT site). Wound culture showed Serratia marcescens, Proteus mirabilis, VRE and MRSA. RADHAMES Lee said she will discuss the results with Dr. Gallo. 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
[2017-04-20] MEDS: MULTIVIT, IRON, MIN NO. 8, FA 1 TAB GT SCH (20:43)
[2017-04-20] MEDS: PROSOURCE / PROSTAT (PYXIS) 30 ML UDC GT SCH (20:43)
[2017-04-20] MEDS: ASCORBIC ACID 500 MG TABLET GT SCH (20:43)
[2017-04-21] MEDS: SUCRALFATE 1 G/10 ML UDC GT SCH ×6 (01:12→20:47)
[2017-04-21] MEDS: ALBUTEROL FS 2.5 MG/0.5 ML VIAL.NEB NEB SCH ×6 (03:30→23:30)
[2017-04-21] MEDS: IPRATROPIUM NEB FS 0.5 MG/2.5 ML AMPUL.NEB NEB SCH ×6 (03:30→23:30)
[2017-04-21] MEDS: POLYVINYL ALCOHOL 15 ML BOTTLE EACHEYE SCH ×3 (05:18→20:47)
[2017-04-21] MEDS: VANCOMYCIN HCL 125 MG/2.5 ML ORAL.SUSP GT SCH ×4 (05:18→23:52)
[2017-04-21] MEDS: OMEPRAZOLE 20 MG CAPSULE.DR GT SCH (05:18)
[2017-04-21 08:04] VITALS: BP 117/61
[2017-04-21] MEDS: MINERAL OIL/PETROLATUM,WHITE 454 GM JAR TP SCH ×2 (09:44→20:48)
[2017-04-21] MEDS: PEPCID GT SCH ×2 (09:44→20:47)
[2017-04-21] MEDS: CHLORHEXIDINE GLUCONATE 15 ML UDC MM SCH ×2 (09:44→17:26)
[2017-04-21] MEDS: Z GUARD REMEDY 4 OZ OINT TP SCH ×4 (09:45→20:48)
[2017-04-21] MEDS: HYDROGEN PEROXIDE 480 ML BOTTLE TP SCH ×2 (09:45→20:48)
[2017-04-21] MEDS: NEOMY SULF/BACITRAC ZN/POLY 15 GM TUBE TP SCH ×2 (09:45→20:48)
[2017-04-21] MEDS: OCUSOFT LID SCRUB TP SCH ×2 (09:45→17:26)
[2017-04-21] MEDS: NYSTATIN TOP POWDER 15 GM BOTTLE TP SCH ×2 (09:45→20:48)
--- NOTE | 2017-04-21 10:55 | NUR ---
Left message for BUILDING SUPERVISOR Rosa Lilly if she still wanted to order any antibiotics for pt. She mentioned yesterday that she will discuss lab and GT site culture results with Dr. Gallo.
--- NOTE | 2017-04-21 16:37 | NUR ---
Left message again for DROP COUNT ASSOCIATE Rosa Lilly if she wanted to order antibiotics for the pt.
--- NOTE | 2017-04-21 16:50 | NUR ---
RADHAMES Lilly said to refer pt to ID for antibiotic treatment. Notified RADHAMES Espinal.
--- NOTE | 2017-04-21 17:54 | NUR ---
Seen by RADHAMES Espinal. 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 Received order to continue Vancomycin for 10 more days from today, apply Gentamicin ointment alternating with Bactroban BID, and DC contact isolation for VRE and MRSA GT site. She said to apply Gentamicin 9am and 9pm, then after 3 hours apply Bactroban ointment 12am and 12pm. Notified Olivia.
[2017-04-21] MEDS: ASCORBIC ACID 500 MG TABLET GT SCH (20:47)
[2017-04-21] MEDS: MULTIVIT, IRON, MIN NO. 8, FA 1 TAB GT SCH (20:47)
[2017-04-21] MEDS: PROSOURCE / PROSTAT (PYXIS) 30 ML UDC GT SCH (20:47)
[2017-04-21] MEDS: GENTAMICIN 0.1% OINT 15 GM TUBE TP SCH (20:48)
[2017-04-21] MEDS: MORPHINE SULFATE 10 MG/5 ML GT PRN (21:27)
[2017-04-22] MEDS: SUCRALFATE 1 G/10 ML UDC GT SCH ×6 (00:02→20:44)
[2017-04-22] MEDS: ALBUTEROL FS 2.5 MG/0.5 ML VIAL.NEB NEB SCH ×6 (03:30→23:37)
[2017-04-22] MEDS: IPRATROPIUM NEB FS 0.5 MG/2.5 ML AMPUL.NEB NEB SCH ×6 (03:30→23:37)
[2017-04-22] MEDS: MORPHINE SULFATE 10 MG/5 ML GT PRN (03:36)
[2017-04-22] MEDS: POLYVINYL ALCOHOL 15 ML BOTTLE EACHEYE SCH ×3 (05:22→20:44)
[2017-04-22] MEDS: VANCOMYCIN HCL 125 MG/2.5 ML ORAL.SUSP GT SCH (05:22)
[2017-04-22] MEDS: OMEPRAZOLE 20 MG CAPSULE.DR GT SCH (05:22)
--- NOTE | 2017-04-22 07:40 | NUR ---
Patient received on mechanical vent settings via trach with settings below: AC10 VT500 30% Fio2 PEEP +5 Addendum: 04/22/17 at 1132 by LACEY HORTON RT Amended: Links added.
[2017-04-22 08:12] VITALS: BP 95/67
[2017-04-22] MEDS: GENTAMICIN 0.1% OINT 15 GM TUBE TP SCH ×2 (09:21→20:45)
[2017-04-22] MEDS: CHLORHEXIDINE GLUCONATE 15 ML UDC MM SCH ×2 (09:21→17:27)
[2017-04-22] MEDS: MINERAL OIL/PETROLATUM,WHITE 454 GM JAR TP SCH ×2 (09:21→20:44)
[2017-04-22] MEDS: PEPCID GT SCH ×2 (09:21→20:44)
[2017-04-22] MEDS: HYDROGEN PEROXIDE 480 ML BOTTLE TP SCH ×2 (09:22→20:45)
[2017-04-22] MEDS: NYSTATIN TOP POWDER 15 GM BOTTLE TP SCH ×2 (09:22→20:45)
[2017-04-22] MEDS: OCUSOFT LID SCRUB TP SCH ×2 (09:22→17:27)
[2017-04-22] MEDS: NEOMY SULF/BACITRAC ZN/POLY 15 GM TUBE TP SCH ×2 (09:23→20:45)
[2017-04-22] MEDS: Z GUARD REMEDY 4 OZ OINT TP SCH ×4 (09:23→20:45)
[2017-04-22] MEDS: FIBERSOURCE HN 1,000 ML BOTTLE GT PRN (13:19)
[2017-04-22 19:34] VITALS: BP 93/60
[2017-04-22] MEDS: ASCORBIC ACID 500 MG TABLET GT SCH (20:44)
[2017-04-22] MEDS: MULTIVIT, IRON, MIN NO. 8, FA 1 TAB GT SCH (20:44)
[2017-04-22] MEDS: PROSOURCE / PROSTAT (PYXIS) 30 ML UDC GT SCH (20:44)
[2017-04-23] MEDS: SUCRALFATE 1 G/10 ML UDC GT SCH ×6 (00:27→21:28)
[2017-04-23] MEDS: VANCOMYCIN HCL 125 MG/2.5 ML ORAL.SUSP GT SCH ×4 (00:27→17:19)
[2017-04-23] MEDS: FIBERSOURCE HN 1,000 ML BOTTLE GT PRN ×2 (02:45→17:20)
[2017-04-23] MEDS: ALBUTEROL FS 2.5 MG/0.5 ML VIAL.NEB NEB SCH ×6 (04:06→23:37)
[2017-04-23] MEDS: IPRATROPIUM NEB FS 0.5 MG/2.5 ML AMPUL.NEB NEB SCH ×6 (04:06→23:37)
[2017-04-23] MEDS: OMEPRAZOLE 20 MG CAPSULE.DR GT SCH (05:32)
[2017-04-23] MEDS: POLYVINYL ALCOHOL 15 ML BOTTLE EACHEYE SCH ×3 (05:32→21:28)
[2017-04-23 07:54] VITALS: BP 101/51
[2017-04-23] MEDS: PEPCID GT SCH ×2 (08:52→21:28)
[2017-04-23] MEDS: MINERAL OIL/PETROLATUM,WHITE 454 GM JAR TP SCH ×2 (08:53→21:28)
[2017-04-23] MEDS: CHLORHEXIDINE GLUCONATE 15 ML UDC MM SCH ×2 (08:53→17:19)
[2017-04-23] MEDS: OCUSOFT LID SCRUB TP SCH ×2 (08:54→17:19)
[2017-04-23] MEDS: Z GUARD REMEDY 4 OZ OINT TP SCH ×4 (08:54→21:30)
[2017-04-23] MEDS: NEOMY SULF/BACITRAC ZN/POLY 15 GM TUBE TP SCH ×2 (08:54→21:29)
[2017-04-23] MEDS: NYSTATIN TOP POWDER 15 GM BOTTLE TP SCH ×2 (08:54→21:29)
[2017-04-23] MEDS: HYDROGEN PEROXIDE 480 ML BOTTLE TP SCH ×2 (08:54→21:29)
[2017-04-23] MEDS: GENTAMICIN 0.1% OINT 15 GM TUBE TP SCH ×2 (09:05→21:29)
--- NOTE | 2017-04-23 16:17 | NUR ---
Seen by RADHAMES Ayala. Pt looks pale, most recent Hemoglobin is 7.8. Received order to do CBC tomorrow.
[2017-04-23 19:52] VITALS: BP 95/58
[2017-04-23] MEDS: PROSOURCE / PROSTAT (PYXIS) 30 ML UDC GT SCH (21:28)
[2017-04-23] MEDS: MULTIVIT, IRON, MIN NO. 8, FA 1 TAB GT SCH (21:28)
[2017-04-23] MEDS: ASCORBIC ACID 500 MG TABLET GT SCH (21:28)
[2017-04-24] MEDS: SUCRALFATE 1 G/10 ML UDC GT SCH ×6 (00:14→20:37)
[2017-04-24] MEDS: VANCOMYCIN HCL 125 MG/2.5 ML ORAL.SUSP GT SCH ×4 (00:14→17:53)
[2017-04-24] MEDS: IPRATROPIUM NEB FS 0.5 MG/2.5 ML AMPUL.NEB NEB SCH ×6 (03:35→23:20)
[2017-04-24] MEDS: ALBUTEROL FS 2.5 MG/0.5 ML VIAL.NEB NEB SCH ×6 (03:35→23:20)
[2017-04-24] MEDS: OMEPRAZOLE 20 MG CAPSULE.DR GT SCH (05:34)
[2017-04-24] MEDS: POLYVINYL ALCOHOL 15 ML BOTTLE EACHEYE SCH ×3 (05:34→20:37)
[2017-04-24 07:34] VITALS: BP 107/74
[2017-04-24 09:36] LABS: BASOPHILS % (AUTO) 0.2 % (0.0-2.0); EOSINOPHILS # (AUTO) 0.1 /CMM (0.0-0.7); HEMATOCRIT 25 % (39-51); LYMPHOCYTES # (AUTO) 1.7 /CMM (0.8-4.8); LYMPHOCYTES % (AUTO) 24.2 % (20.0-44.0); MEAN CORPUSCULAR HEMOGLOBIN 27 PG (26.0-33.0); MEAN CORPUSCULAR HGB CONC 32 g/dl (31.0-36.0); MEAN CORPUSCULAR VOLUME 83 fL (80-96); MONOCYTES # (AUTO) 0.5 /CMM (0.1-1.30); MONOCYTES % (AUTO) 7.5 % (2.0-12.0); NEUTROPHILS # (AUTO) 4.8 /CMM (1.8-8.9); NEUTROPHILS % (AUTO) 67.1 % (43.0-81.0); PLATELET COUNT (AUTO) 398 /CMM (150-450); RDW COEFFICIENT OF VARIATION 20.3 (11.5-15.0); RED BLOOD CELL COUNT(AUTO) 2.97 MIL/uL (4.5-6.0); WHITE BLOOD COUNT (AUTO) 7.1 K/uL (4.3-11.0)
[2017-04-24] MEDS: HYDROGEN PEROXIDE 480 ML BOTTLE TP SCH ×2 (09:54→20:38)
[2017-04-24] MEDS: OCUSOFT LID SCRUB TP SCH ×2 (09:54→17:52)
[2017-04-24] MEDS: NEOMY SULF/BACITRAC ZN/POLY 15 GM TUBE TP SCH ×2 (09:54→20:38)
[2017-04-24] MEDS: NYSTATIN TOP POWDER 15 GM BOTTLE TP SCH ×2 (09:54→20:38)
[2017-04-24] MEDS: GENTAMICIN 0.1% OINT 15 GM TUBE TP SCH ×2 (09:54→20:38)
[2017-04-24] MEDS: CHLORHEXIDINE GLUCONATE 15 ML UDC MM SCH ×2 (09:54→17:52)
[2017-04-24] MEDS: PEPCID GT SCH ×2 (09:54→20:37)
[2017-04-24] MEDS: MINERAL OIL/PETROLATUM,WHITE 454 GM JAR TP SCH ×2 (09:54→20:38)
[2017-04-24] MEDS: Z GUARD REMEDY 4 OZ OINT TP SCH ×4 (09:55→20:38)
[2017-04-24] MEDS: FIBERSOURCE HN 1,000 ML BOTTLE GT PRN ×2 (10:16→23:30)
--- NOTE | 2017-04-24 13:50 | NUR ---
Notified Dr. Reese of CBC result, Hbg 8.0, NNO given.
[2017-04-24 19:47] VITALS: BP 111/68
[2017-04-24] MEDS: PROSOURCE / PROSTAT (PYXIS) 30 ML UDC GT SCH (20:37)
[2017-04-24] MEDS: MULTIVIT, IRON, MIN NO. 8, FA 1 TAB GT SCH (20:37)
[2017-04-24] MEDS: ASCORBIC ACID 500 MG TABLET GT SCH (20:37)
[2017-04-25] MEDS: VANCOMYCIN HCL 125 MG/2.5 ML ORAL.SUSP GT SCH ×4 (00:04→17:01)
[2017-04-25] MEDS: SUCRALFATE 1 G/10 ML UDC GT SCH ×6 (00:04→21:21)
[2017-04-25] MEDS: IPRATROPIUM NEB FS 0.5 MG/2.5 ML AMPUL.NEB NEB SCH ×6 (03:26→23:04)
[2017-04-25] MEDS: ALBUTEROL FS 2.5 MG/0.5 ML VIAL.NEB NEB SCH ×6 (03:26→23:04)
[2017-04-25] MEDS: POLYVINYL ALCOHOL 15 ML BOTTLE EACHEYE SCH ×3 (05:05→21:21)
[2017-04-25] MEDS: OMEPRAZOLE 20 MG CAPSULE.DR GT SCH (05:05)
[2017-04-25 07:33] VITALS: BP 115/73
[2017-04-25] MEDS: NEOMY SULF/BACITRAC ZN/POLY 15 GM TUBE TP SCH ×2 (09:00→21:21)
[2017-04-25] MEDS: NYSTATIN TOP POWDER 15 GM BOTTLE TP SCH (09:00)
[2017-04-25] MEDS: Z GUARD REMEDY 4 OZ OINT TP SCH ×4 (09:00→21:22)
[2017-04-25] MEDS: GENTAMICIN 0.1% OINT 15 GM TUBE TP SCH ×2 (09:00→21:21)
[2017-04-25] MEDS: HYDROGEN PEROXIDE 480 ML BOTTLE TP SCH ×2 (09:00→21:21)
[2017-04-25] MEDS: OCUSOFT LID SCRUB TP SCH ×2 (09:00→16:44)
[2017-04-25] MEDS: PEPCID GT SCH ×2 (09:10→21:21)
[2017-04-25] MEDS: CHLORHEXIDINE GLUCONATE 15 ML UDC MM SCH ×2 (09:10→16:44)
[2017-04-25] MEDS: MINERAL OIL/PETROLATUM,WHITE 454 GM JAR TP SCH ×2 (09:10→21:21)
--- NOTE | 2017-04-25 09:40 | NUR ---
Seen and examined by Dr. Vance, NNO given.
[2017-04-25] MEDS: FIBERSOURCE HN 1,000 ML BOTTLE GT PRN (16:10)
[2017-04-25 19:37] VITALS: BP 112/70
[2017-04-25] MEDS: PROSOURCE / PROSTAT (PYXIS) 30 ML UDC GT SCH (21:21)
[2017-04-25] MEDS: MULTIVIT, IRON, MIN NO. 8, FA 1 TAB GT SCH (21:21)
[2017-04-25] MEDS: ASCORBIC ACID 500 MG TABLET GT SCH (21:21)
[2017-04-26] MEDS: VANCOMYCIN HCL 125 MG/2.5 ML ORAL.SUSP GT SCH ×4 (00:49→18:29)
[2017-04-26] MEDS: SUCRALFATE 1 G/10 ML UDC GT SCH ×6 (00:49→20:28)
[2017-04-26] MEDS: IPRATROPIUM NEB FS 0.5 MG/2.5 ML AMPUL.NEB NEB SCH ×6 (03:55→23:30)
[2017-04-26] MEDS: ALBUTEROL FS 2.5 MG/0.5 ML VIAL.NEB NEB SCH ×6 (03:56→23:30)
[2017-04-26] MEDS: POLYVINYL ALCOHOL 15 ML BOTTLE EACHEYE SCH ×3 (05:17→20:28)
[2017-04-26] MEDS: OMEPRAZOLE 20 MG CAPSULE.DR GT SCH (05:17)
[2017-04-26 08:00] VITALS: BP 129/56
[2017-04-26] MEDS: MINERAL OIL/PETROLATUM,WHITE 454 GM JAR TP SCH ×2 (09:00→20:29)
[2017-04-26] MEDS: HYDROGEN PEROXIDE 480 ML BOTTLE TP SCH ×2 (09:00→20:29)
[2017-04-26] MEDS: Z GUARD REMEDY 4 OZ OINT TP SCH ×4 (09:00→20:29)
[2017-04-26] MEDS: PEPCID GT SCH ×2 (09:00→20:28)
[2017-04-26] MEDS: GENTAMICIN 0.1% OINT 15 GM TUBE TP SCH ×2 (09:00→20:29)
[2017-04-26] MEDS: OCUSOFT LID SCRUB TP SCH ×2 (09:00→17:00)
[2017-04-26] MEDS: CHLORHEXIDINE GLUCONATE 15 ML UDC MM SCH ×2 (09:00→17:00)
[2017-04-26] MEDS: NEOMY SULF/BACITRAC ZN/POLY 15 GM TUBE TP SCH ×2 (09:00→20:29)
[2017-04-26] MEDS: FIBERSOURCE HN 1,000 ML BOTTLE GT PRN (15:06)
[2017-04-26 19:31] VITALS: BP 99/58
[2017-04-26] MEDS: ASCORBIC ACID 500 MG TABLET GT SCH (20:28)
[2017-04-26] MEDS: MULTIVIT, IRON, MIN NO. 8, FA 1 TAB GT SCH (20:28)
[2017-04-26] MEDS: PROSOURCE / PROSTAT (PYXIS) 30 ML UDC GT SCH (20:28)
[2017-04-27] MEDS: VANCOMYCIN HCL 125 MG/2.5 ML ORAL.SUSP GT SCH ×4 (00:39→17:37)
[2017-04-27] MEDS: SUCRALFATE 1 G/10 ML UDC GT SCH ×6 (00:39→20:41)
[2017-04-27] MEDS: ALBUTEROL FS 2.5 MG/0.5 ML VIAL.NEB NEB SCH ×6 (03:02→23:09)
[2017-04-27] MEDS: IPRATROPIUM NEB FS 0.5 MG/2.5 ML AMPUL.NEB NEB SCH ×6 (03:02→23:09)
[2017-04-27] MEDS: FIBERSOURCE HN 1,000 ML BOTTLE GT PRN ×2 (03:52→17:50)
[2017-04-27] MEDS: OMEPRAZOLE 20 MG CAPSULE.DR GT SCH (05:02)
[2017-04-27] MEDS: POLYVINYL ALCOHOL 15 ML BOTTLE EACHEYE SCH ×3 (05:02→20:40)
[2017-04-27 08:01] VITALS: BP 104/57
[2017-04-27] MEDS: HYDROGEN PEROXIDE 480 ML BOTTLE TP SCH ×2 (09:00→20:44)
[2017-04-27] MEDS: NEOMY SULF/BACITRAC ZN/POLY 15 GM TUBE TP SCH ×2 (09:00→20:45)
[2017-04-27] MEDS: GENTAMICIN 0.1% OINT 15 GM TUBE TP SCH ×2 (09:00→20:44)
[2017-04-27] MEDS: MINERAL OIL/PETROLATUM,WHITE 454 GM JAR TP SCH ×2 (09:57→20:44)
[2017-04-27] MEDS: OCUSOFT LID SCRUB TP SCH ×2 (09:57→17:37)
[2017-04-27] MEDS: CHLORHEXIDINE GLUCONATE 15 ML UDC MM SCH ×2 (09:57→17:37)
[2017-04-27] MEDS: PEPCID GT SCH ×2 (09:57→20:44)
[2017-04-27] MEDS: Z GUARD REMEDY 4 OZ OINT TP SCH ×4 (09:58→20:45)
--- NOTE | 2017-04-27 18:25 | NUR ---
Pt's G-tube came out and balloon was ruptured, G-tube was replaced by licensed nurse. Notified Dr. Vance and received order to do KUB to verify placement. Addendum: 04/27/17 at 1832 by NABOR GARCIA RN Balloon was found ruptured.
[2017-04-27] MEDS ORDERED: DIATR MEGLU/DIATRIZOATE SODIUM 30 ML BOTTLE (GASTROGRAPHIN) ONE (19:19)
[2017-04-27 19:28] VITALS: BP 100/62
[2017-04-27] MEDS: ASCORBIC ACID 500 MG TABLET GT SCH (20:44)
[2017-04-27] MEDS: PROSOURCE / PROSTAT (PYXIS) 30 ML UDC GT SCH (20:44)
[2017-04-27] MEDS: MULTIVIT, IRON, MIN NO. 8, FA 1 TAB GT SCH (20:44)
[2017-04-28] MEDS: VANCOMYCIN HCL 125 MG/2.5 ML ORAL.SUSP GT SCH ×4 (00:19→17:30)
[2017-04-28] MEDS: SUCRALFATE 1 G/10 ML UDC GT SCH ×6 (01:28→20:55)
[2017-04-28] MEDS: IPRATROPIUM NEB FS 0.5 MG/2.5 ML AMPUL.NEB NEB SCH ×6 (03:33→23:02)
[2017-04-28] MEDS: ALBUTEROL FS 2.5 MG/0.5 ML VIAL.NEB NEB SCH ×6 (03:33→23:02)
[2017-04-28] MEDS: POLYVINYL ALCOHOL 15 ML BOTTLE EACHEYE SCH ×3 (05:33→20:55)
[2017-04-28] MEDS: OMEPRAZOLE 20 MG CAPSULE.DR GT SCH (05:37)
[2017-04-28 07:40] VITALS: BP 119/71
[2017-04-28] MEDS: CHLORHEXIDINE GLUCONATE 15 ML UDC MM SCH ×2 (09:15→17:30)
[2017-04-28] MEDS: NEOMY SULF/BACITRAC ZN/POLY 15 GM TUBE TP SCH ×2 (09:15→20:57)
[2017-04-28] MEDS: GENTAMICIN 0.1% OINT 15 GM TUBE TP SCH ×2 (09:15→20:57)
[2017-04-28] MEDS: HYDROGEN PEROXIDE 480 ML BOTTLE TP SCH ×2 (09:15→20:57)
[2017-04-28] MEDS: OCUSOFT LID SCRUB TP SCH ×2 (09:15→17:30)
[2017-04-28] MEDS: Z GUARD REMEDY 4 OZ OINT TP SCH ×4 (09:15→20:57)
[2017-04-28] MEDS: MINERAL OIL/PETROLATUM,WHITE 454 GM JAR TP SCH ×2 (09:15→20:57)
[2017-04-28] MEDS: PEPCID GT SCH ×2 (09:15→20:55)
[2017-04-28 20:05] VITALS: BP 103/68
[2017-04-28] MEDS: PROSOURCE / PROSTAT (PYXIS) 30 ML UDC GT SCH (20:56)
[2017-04-28] MEDS: MULTIVIT, IRON, MIN NO. 8, FA 1 TAB GT SCH (20:56)
[2017-04-28] MEDS: ASCORBIC ACID 500 MG TABLET GT SCH (20:57)
[2017-04-29] MEDS: SUCRALFATE 1 G/10 ML UDC GT SCH ×6 (00:25→20:47)
[2017-04-29] MEDS: VANCOMYCIN HCL 125 MG/2.5 ML ORAL.SUSP GT SCH ×4 (00:25→17:43)
[2017-04-29] MEDS: FIBERSOURCE HN 1,000 ML BOTTLE GT PRN ×2 (00:29→17:44)
[2017-04-29] MEDS: IPRATROPIUM NEB FS 0.5 MG/2.5 ML AMPUL.NEB NEB SCH ×6 (04:15→23:30)
[2017-04-29] MEDS: ALBUTEROL FS 2.5 MG/0.5 ML VIAL.NEB NEB SCH ×6 (04:15→23:30)
[2017-04-29] MEDS: POLYVINYL ALCOHOL 15 ML BOTTLE EACHEYE SCH ×3 (05:41→20:47)
[2017-04-29] MEDS: OMEPRAZOLE 20 MG CAPSULE.DR GT SCH (05:42)
[2017-04-29 07:38] VITALS: BP 94/51
[2017-04-29] MEDS: GENTAMICIN 0.1% OINT 15 GM TUBE TP SCH ×2 (09:00→20:47)
[2017-04-29] MEDS: NEOMY SULF/BACITRAC ZN/POLY 15 GM TUBE TP SCH ×2 (09:00→20:48)
[2017-04-29] MEDS: HYDROGEN PEROXIDE 480 ML BOTTLE TP SCH ×2 (09:00→20:47)
[2017-04-29] MEDS: Z GUARD REMEDY 4 OZ OINT TP SCH ×4 (09:00→20:48)
[2017-04-29] MEDS: OCUSOFT LID SCRUB TP SCH ×2 (09:36→17:43)
[2017-04-29] MEDS: CHLORHEXIDINE GLUCONATE 15 ML UDC MM SCH ×2 (09:36→17:43)
[2017-04-29] MEDS: MINERAL OIL/PETROLATUM,WHITE 454 GM JAR TP SCH ×2 (09:36→20:47)
[2017-04-29] MEDS: PEPCID GT SCH ×2 (09:36→20:47)
--- NOTE | 2017-04-29 16:46 | NUR ---
RT NOTE END OF SHIFT SUMMERY PT REMAINS ON [facility] VENT WITH NOTED SETTINGS. SX MOD AMOUNT OF THICK YELLOW SECRETIONS. TRACH AND VENT TUBING INTACT. VENT PLUGGED INTO RED OUTLET. AMBU BAG/SPARE TRACH AT BEDSIDE. VENT ALARMS ARE SET AND AUDIBLE PER POLICY. DISCONNECT ALARM VERIFIED. NO DISTRESS T/O SHIFT. Addendum: 04/29/17 at 1647 by DAVID ANNA RT Amended: Links added.
[2017-04-29 20:26] VITALS: BP 134/67
[2017-04-29] MEDS: ASCORBIC ACID 500 MG TABLET GT SCH (20:47)
[2017-04-29] MEDS: PROSOURCE / PROSTAT (PYXIS) 30 ML UDC GT SCH (20:47)
[2017-04-29] MEDS: MULTIVIT, IRON, MIN NO. 8, FA 1 TAB GT SCH (20:47)
[2017-04-29] MEDS: TEMAZEPAM 7.5 MG CAPSULE GT PRN (23:34)
[2017-04-30] MEDS: VANCOMYCIN HCL 125 MG/2.5 ML ORAL.SUSP GT SCH ×4 (00:28→17:24)
[2017-04-30] MEDS: SUCRALFATE 1 G/10 ML UDC GT SCH ×6 (00:28→21:12)
--- NOTE | 2017-04-30 02:11 | NUR ---
PT STABLE ON RECEIVED VENTS SETTINGS. NO S/S OF SOB NOTED. PT SX PRN FOR MOD AMOUNT OF PALE YELLOW SECRETIONS. ALARMS CHECKED AND AUDIBLE THROUGHOUT SUBACUTE UNIT. MECHANICAL VENTILATOR PLUGGED INTO RED OUTLET. TRACH CARE DONE. WILL CONTINUE TO MONITOR PT. Addendum: 04/30/17 at 0212 by ROXY JOHNSON RT Amended: Links added.
[2017-04-30] MEDS: ALBUTEROL FS 2.5 MG/0.5 ML VIAL.NEB NEB SCH ×6 (03:57→23:43)
[2017-04-30] MEDS: IPRATROPIUM NEB FS 0.5 MG/2.5 ML AMPUL.NEB NEB SCH ×6 (03:57→23:43)
[2017-04-30] MEDS: OMEPRAZOLE 20 MG CAPSULE.DR GT SCH (05:25)
[2017-04-30] MEDS: POLYVINYL ALCOHOL 15 ML BOTTLE EACHEYE SCH ×3 (05:25→21:12)
[2017-04-30 07:44] VITALS: BP 116/57
[2017-04-30] MEDS: HYDROGEN PEROXIDE 480 ML BOTTLE TP SCH ×2 (09:06→21:12)
[2017-04-30] MEDS: MINERAL OIL/PETROLATUM,WHITE 454 GM JAR TP SCH ×2 (09:06→21:12)
[2017-04-30] MEDS: CHLORHEXIDINE GLUCONATE 15 ML UDC MM SCH ×2 (09:06→17:24)
[2017-04-30] MEDS: PEPCID GT SCH ×2 (09:06→21:12)
[2017-04-30] MEDS: OCUSOFT LID SCRUB TP SCH ×2 (09:06→17:24)
[2017-04-30] MEDS: NEOMY SULF/BACITRAC ZN/POLY 15 GM TUBE TP SCH ×2 (09:06→21:12)
[2017-04-30] MEDS: GENTAMICIN 0.1% OINT 15 GM TUBE TP SCH ×2 (09:06→21:12)
[2017-04-30] MEDS: Z GUARD REMEDY 4 OZ OINT TP SCH ×4 (09:06→21:12)
[2017-04-30] MEDS: FIBERSOURCE HN 1,000 ML BOTTLE GT PRN ×2 (09:19→22:08)
[2017-04-30 19:50] VITALS: BP 108/63
[2017-04-30] MEDS: MULTIVIT, IRON, MIN NO. 8, FA 1 TAB GT SCH (21:12)
[2017-04-30] MEDS: PROSOURCE / PROSTAT (PYXIS) 30 ML UDC GT SCH (21:12)
[2017-04-30] MEDS: ASCORBIC ACID 500 MG TABLET GT SCH (21:12)
[2017-05-01] MEDS: SUCRALFATE 1 G/10 ML UDC GT SCH ×6 (00:23→21:54)
[2017-05-01] MEDS: VANCOMYCIN HCL 125 MG/2.5 ML ORAL.SUSP GT SCH ×3 (00:23→12:25)
[2017-05-01] MEDS: ALBUTEROL FS 2.5 MG/0.5 ML VIAL.NEB NEB SCH ×6 (03:42→23:17)
[2017-05-01] MEDS: IPRATROPIUM NEB FS 0.5 MG/2.5 ML AMPUL.NEB NEB SCH ×6 (03:42→23:17)
[2017-05-01] MEDS: POLYVINYL ALCOHOL 15 ML BOTTLE EACHEYE SCH ×3 (05:36→21:54)
[2017-05-01] MEDS: OMEPRAZOLE 20 MG CAPSULE.DR GT SCH (05:37)
[2017-05-01 07:44] VITALS: BP 100/64
[2017-05-01] MEDS: PEPCID GT SCH ×2 (08:51→21:54)
[2017-05-01] MEDS: OCUSOFT LID SCRUB TP SCH ×2 (08:51→17:47)
[2017-05-01] MEDS: HYDROGEN PEROXIDE 480 ML BOTTLE TP SCH ×2 (08:51→21:54)
[2017-05-01] MEDS: NEOMY SULF/BACITRAC ZN/POLY 15 GM TUBE TP SCH ×2 (08:51→21:55)
[2017-05-01] MEDS: MINERAL OIL/PETROLATUM,WHITE 454 GM JAR TP SCH ×2 (08:51→21:54)
[2017-05-01] MEDS: CHLORHEXIDINE GLUCONATE 15 ML UDC MM SCH ×2 (08:51→17:47)
[2017-05-01] MEDS: GENTAMICIN 0.1% OINT 15 GM TUBE TP SCH ×2 (08:51→21:54)
[2017-05-01] MEDS: Z GUARD REMEDY 4 OZ OINT TP SCH ×4 (08:52→21:55)
--- NOTE | 2017-05-01 09:10 | NUR ---
tear down worker met with the resident and kept him company. Resident appreciated the social and human services assistant's presence and held the social and human services assistant's hand and would at times put it up to his face. Resident was calm and was watching tv.
[2017-05-01] MEDS: FIBERSOURCE HN 1,000 ML BOTTLE GT PRN (15:40)
--- NOTE | 2017-05-01 16:03 | NUR ---
Female trach received on mechanical vent. Pt trach is secure. Pt tolerated current vent settings throughout the shift. Vent is plugged into a red outlet, alarms are set and audible, disconnect alarm checked, BVM at bedside. Addendum: 05/01/17 at 1604 by KAYLIN GRANADOS RT Amended: Links added. Addendum: 05/01/17 at 1606 by KAYLIN GRANADOS RT Male trach received on mechanical vent. Pt trach is secure. Pt tolerated current vent settings throughout the shift. Vent is plugged into a red outlet, alarms are set and audible, disconnect alarm checked, BVM at bedside.
[2017-05-01 19:41] VITALS: BP 125/58
[2017-05-01] MEDS: MULTIVIT, IRON, MIN NO. 8, FA 1 TAB GT SCH (21:54)
[2017-05-01] MEDS: NYSTATIN TOP POWDER 15 GM BOTTLE TP SCH (21:54)
[2017-05-01] MEDS: PROSOURCE / PROSTAT (PYXIS) 30 ML UDC GT SCH (21:54)
[2017-05-01] MEDS: ASCORBIC ACID 500 MG TABLET GT SCH (21:54)
[2017-05-02] MEDS: SUCRALFATE 1 G/10 ML UDC GT SCH ×6 (00:36→21:59)
[2017-05-02] MEDS: ALBUTEROL FS 2.5 MG/0.5 ML VIAL.NEB NEB SCH ×6 (03:16→23:30)
[2017-05-02] MEDS: IPRATROPIUM NEB FS 0.5 MG/2.5 ML AMPUL.NEB NEB SCH ×6 (03:16→23:30)
[2017-05-02] MEDS: POLYVINYL ALCOHOL 15 ML BOTTLE EACHEYE SCH ×3 (05:09→21:58)
[2017-05-02] MEDS: OMEPRAZOLE 20 MG CAPSULE.DR GT SCH (05:09)
[2017-05-02] MEDS: FIBERSOURCE HN 1,000 ML BOTTLE GT PRN ×2 (06:34→22:03)
--- NOTE | 2017-05-02 06:37 | NUR ---
pt had soft bm x1. keep clean and dry. no s/s of discomfort noted.
[2017-05-02 07:35] VITALS: BP 107/60
[2017-05-02] MEDS: Z GUARD REMEDY 4 OZ OINT TP SCH ×4 (09:00→21:59)
[2017-05-02] MEDS: NYSTATIN TOP POWDER 15 GM BOTTLE TP SCH ×2 (09:00→21:59)
[2017-05-02] MEDS: HYDROGEN PEROXIDE 480 ML BOTTLE TP SCH ×2 (09:00→21:59)
[2017-05-02] MEDS: MINERAL OIL/PETROLATUM,WHITE 454 GM JAR TP SCH ×2 (09:00→21:59)
[2017-05-02] MEDS: GENTAMICIN 0.1% OINT 15 GM TUBE TP SCH ×2 (09:00→21:59)
[2017-05-02] MEDS: CHLORHEXIDINE GLUCONATE 15 ML UDC MM SCH ×2 (09:17→17:17)
[2017-05-02] MEDS: PEPCID GT SCH ×2 (09:17→21:59)
[2017-05-02] MEDS: OCUSOFT LID SCRUB TP SCH ×2 (09:18→17:17)
--- NOTE | 2017-05-02 16:26 | NUR ---
RECEIVED PT ON [facility] VENT TRACH ON SETTINGS PER MD. AIRWAY PATENT. SX LARGE AMOUNT OF THICK YELLOW SECRETIONS. TRACH AND VENT TUBING INTACT. VENT PLUGGED INTO RED OUTLET. AMBU BAG/SPARE TRACH AT BEDSIDE. VENT ALARMS ARE SET AND AUDIBLE. Addendum: 05/02/17 at 1627 by DIEGO LEDEZMA RT Amended: Links added.
[2017-05-02 19:38] VITALS: BP 110/62
[2017-05-02] MEDS: PROSOURCE / PROSTAT (PYXIS) 30 ML UDC GT SCH (21:59)
[2017-05-02] MEDS: ASCORBIC ACID 500 MG TABLET GT SCH (21:59)
[2017-05-02] MEDS: MULTIVIT, IRON, MIN NO. 8, FA 1 TAB GT SCH (21:59)
[2017-05-03] MEDS: SUCRALFATE 1 G/10 ML UDC GT SCH ×6 (01:33→20:41)
[2017-05-03] MEDS: IPRATROPIUM NEB FS 0.5 MG/2.5 ML AMPUL.NEB NEB SCH ×6 (02:59→23:34)
[2017-05-03] MEDS: ALBUTEROL FS 2.5 MG/0.5 ML VIAL.NEB NEB SCH ×6 (02:59→23:34)
[2017-05-03] MEDS: OMEPRAZOLE 20 MG CAPSULE.DR GT SCH (05:50)
[2017-05-03] MEDS: POLYVINYL ALCOHOL 15 ML BOTTLE EACHEYE SCH ×3 (05:50→20:39)
[2017-05-03 07:29] VITALS: BP 104/67
[2017-05-03] MEDS: CHLORHEXIDINE GLUCONATE 15 ML UDC MM SCH ×2 (09:28→16:10)
[2017-05-03] MEDS: MINERAL OIL/PETROLATUM,WHITE 454 GM JAR TP SCH ×2 (09:28→20:43)
[2017-05-03] MEDS: PEPCID GT SCH ×2 (09:28→20:41)
[2017-05-03] MEDS: OCUSOFT LID SCRUB TP SCH ×2 (09:29→16:10)
[2017-05-03] MEDS: GENTAMICIN 0.1% OINT 15 GM TUBE TP SCH ×2 (09:29→20:43)
[2017-05-03] MEDS: Z GUARD REMEDY 4 OZ OINT TP SCH ×4 (09:29→20:43)
[2017-05-03] MEDS: NYSTATIN TOP POWDER 15 GM BOTTLE TP SCH ×2 (09:29→20:43)
[2017-05-03] MEDS: HYDROGEN PEROXIDE 480 ML BOTTLE TP SCH ×2 (09:29→20:43)
--- NOTE | 2017-05-03 16:52 | NUR ---
NO VENT CHANGES MADE. Addendum: 05/03/17 at 1653 by LACEY HORTON RT Amended: Links added.
[2017-05-03 19:34] VITALS: BP 123/79
[2017-05-03] MEDS: MULTIVIT, IRON, MIN NO. 8, FA 1 TAB GT SCH (20:42)
[2017-05-03] MEDS: PROSOURCE / PROSTAT (PYXIS) 30 ML UDC GT SCH (20:42)
[2017-05-03] MEDS: ASCORBIC ACID 500 MG TABLET GT SCH (20:43)
[2017-05-04] MEDS: SUCRALFATE 1 G/10 ML UDC GT SCH ×6 (00:58→20:48)
[2017-05-04] MEDS: IPRATROPIUM NEB FS 0.5 MG/2.5 ML AMPUL.NEB NEB SCH ×6 (04:16→23:12)
[2017-05-04] MEDS: ALBUTEROL FS 2.5 MG/0.5 ML VIAL.NEB NEB SCH ×6 (04:17→23:12)
[2017-05-04] MEDS: POLYVINYL ALCOHOL 15 ML BOTTLE EACHEYE SCH ×3 (05:28→20:47)
[2017-05-04] MEDS: OMEPRAZOLE 20 MG CAPSULE.DR GT SCH (05:28)
[2017-05-04] MEDS: FIBERSOURCE HN 1,000 ML BOTTLE GT PRN ×2 (05:55→20:45)
[2017-05-04 07:51] VITALS: BP 137/84
[2017-05-04] MEDS: MINERAL OIL/PETROLATUM,WHITE 454 GM JAR TP SCH ×2 (09:53→20:50)
[2017-05-04] MEDS: PEPCID GT SCH ×2 (09:53→20:48)
[2017-05-04] MEDS: CHLORHEXIDINE GLUCONATE 15 ML UDC MM SCH ×2 (09:53→16:34)
[2017-05-04] MEDS: HYDROGEN PEROXIDE 480 ML BOTTLE TP SCH ×2 (09:54→20:50)
[2017-05-04] MEDS: GENTAMICIN 0.1% OINT 15 GM TUBE TP SCH ×2 (09:54→20:50)
[2017-05-04] MEDS: NYSTATIN TOP POWDER 15 GM BOTTLE TP SCH ×2 (09:54→20:50)
[2017-05-04] MEDS: OCUSOFT LID SCRUB TP SCH ×2 (09:54→16:34)
[2017-05-04] MEDS: Z GUARD REMEDY 4 OZ OINT TP SCH ×4 (09:54→20:50)
--- NOTE | 2017-05-04 11:05 | NUR ---
made rounds and seen the pt and no new orders noted.
--- NOTE | 2017-05-04 16:24 | NUR ---
RECEIVED PT ON [facility] VENT TRACH. ON VENT SETTINGS NOTED AND ORDERED BY . AIRWAY PATENT. SX LARGE AMOUNT OF THICK YELLOW SECRETIONS. TRACH AND VENT TUBING INTACT. VENT PLUGGED INTO RED OUTLET. AMBU BAG/SPARE TRACH AT BEDSIDE. VENT ALARMS ARE SET AND AUDIBLE NO DISTRESS NOTED DURING SHIFT. Addendum: 05/04/17 at 1624 by DIEGO LEDEZMA RT Amended: Links added.
[2017-05-04] MEDS: MULTIVIT, IRON, MIN NO. 8, FA 1 TAB GT SCH (20:49)
[2017-05-04] MEDS: PROSOURCE / PROSTAT (PYXIS) 30 ML UDC GT SCH (20:49)
[2017-05-04] MEDS: ASCORBIC ACID 500 MG TABLET GT SCH (20:50)
[2017-05-04 22:32] VITALS: BP 100/65
[2017-05-05] MEDS: SUCRALFATE 1 G/10 ML UDC GT SCH ×3 (01:00→08:30)
[2017-05-05] MEDS: IPRATROPIUM NEB FS 0.5 MG/2.5 ML AMPUL.NEB NEB SCH ×2 (03:11→07:45)
[2017-05-05] MEDS: ALBUTEROL FS 2.5 MG/0.5 ML VIAL.NEB NEB SCH ×2 (03:11→07:45)
--- NOTE | 2017-05-05 04:41 | NUR ---
PT STABLE ON RECEIVED SETTINGS. NO SIGNS OF SOB NOTED. PT SX PRN FOR MOD AMOUNT OF PALE YELLOW SECRETIONS. ALARMS CHECKED AND AUDIBLE THROUGHOUT UNIT. VENTILATOR PLUGGED INTO RED OUTLET. WILL CONTINUE TO MONITOR PT. Addendum: 05/05/17 at 0441 by CHELSIE MAS RT Amended: Links added.
[2017-05-05] MEDS: POLYVINYL ALCOHOL 15 ML BOTTLE EACHEYE SCH (05:32)
[2017-05-05] MEDS: OMEPRAZOLE 20 MG CAPSULE.DR GT SCH (05:32)
[2017-05-05 08:08] VITALS: BP 89/51
[2017-05-05] MEDS: MINERAL OIL/PETROLATUM,WHITE 454 GM JAR TP SCH (08:32)
[2017-05-05] MEDS: PEPCID GT SCH (08:32)
[2017-05-05] MEDS: CHLORHEXIDINE GLUCONATE 15 ML UDC MM SCH (08:32)
[2017-05-05] MEDS: OCUSOFT LID SCRUB TP SCH (08:33)
[2017-05-05] MEDS: NYSTATIN TOP POWDER 15 GM BOTTLE TP SCH (08:45)
[2017-05-05] MEDS: Z GUARD REMEDY 4 OZ OINT TP SCH ×2 (08:45)
== END 2017-05-03 23:59 | disposition still patient (30) | DRG 207 ==
LOC: SA
PROVIDERS: ADMIT Internal Medicine; ATTEND Internal Medicine
PROC: 5A1955Z Respiratory Ventilation, Greater than 96 Consecutive Hours (ICD-10-PCS; principal; 2016-05-04)
DX: J96.11 Chronic respiratory failure with hypoxia (principal); R64 Cachexia; I50.9 Heart failure, unspecified; Z99.11 Dependence on respirator [ventilator] status; R13.10 Dysphagia, unspecified; Z87.11 Personal history of peptic ulcer disease; I10 Essential (primary) hypertension; I25.10 Atherosclerotic heart disease of native coronary artery without angina pectoris
CPT/HCPCS: 31720; 36415; 36569; 36600; 71010-TC; 73130-TC; 73564-TC; 74000-TC; 80048-TC; 80053-TC; 80202-TC; 81000-TC; 82565-TC; 82803-TC; 82962-TC; 83735-TC; 84100-TC; 84520-TC; 85025-TC; 85730-TC; 86580-TC; 86850-TC; 86921-TC; 87070-TC; 87086-TC; 87186-TC; 92507-TC; 92521; 93970-TC; 94003-TC; 94760-TC; 94762-TC; 94799-TC; 99082-TC; A4216; A4623; A6248; A6402; A7526; J0692; J1940; J1956; J2543; J2930; J3370; J3490; J7030; J7050; J7060; L8501; P9016-BL; Q2036; Q9963; Z7610

== ENCOUNTER 2017-05-04 | Inpatient (IN) | payer MEDICARE, OTHER ==
[~2017-05-04] VITALS: Ht 157.5 cm; Wt 49.9 kg
[~2017-05-04] MED LIST changes: +ASCO500T10 GT; -ASCO500T10 PO
--- NOTE | 2017-05-05 11:08 | NUR ---
Please see resident's previous account [id number] for Social Service assessments, evaluations and notes.
--- NOTE | 2017-05-05 11:08 | NUR ---
GONZALO informed resident's daughter of IDT meeting on May 08, 2017 from 12:30pm-1:30PM. She stated that she has been working overtime and has not had time to visit the resident. She stated that she will come visit him on 05/07/2017 and will not be attending the IDT meeting on Thursday.
[2017-05-05] MEDS ORDERED: ACETAMINOPHEN 650 MG/20 ML UDC- FOR SA PATIENTS ONLY GT PRN (11:19)
[2017-05-05] MEDS ORDERED: ONDANSETRON 4 MG TAB.RAPDIS GT PRN (11:19)
[2017-05-05] MEDS ORDERED: MAGNESIUM HYDROXIDE 30 ML UDC GT PRN (11:19)
[2017-05-05] MEDS ORDERED: TUBERCULIN,PURIF.PROT.DERIV. 5 TU/0.1 ML VIAL ID SCH (11:19)
[2017-05-05] MEDS ORDERED: HYDROGEN PEROXIDE 480 ML BOTTLE TP PRN (11:19)
[2017-05-05] MEDS: POLYVINYL ALCOHOL 15 ML BOTTLE EACHEYE SCH ×2 (12:22→21:00)
[2017-05-05] MEDS: SUCRALFATE 1 G/10 ML UDC GT SCH ×3 (12:22→21:00)
--- NOTE | 2017-05-05 12:35 | NUR ---
Followed up with RADHAMES Lilly if she will be changing pt's G-tube. Notified her that GT stoma has improved but still has some redness and granulation tissue. RADHAMES Lee said she will see the pt tomorrow.
[2017-05-05] MEDS: FIBERSOURCE HN 1,000 ML BOTTLE GT PRN (16:00)
[2017-05-05] MEDS: OCUSOFT LID SCRUB TP SCH (17:00)
[2017-05-05] MEDS: CHLORHEXIDINE GLUCONATE 15 ML UDC MM SCH (17:41)
--- NOTE | 2017-05-05 19:30 | NUR ---
Please see resident's original account [id number] for all assessments and nurses notes. Originally admitted on 02/01/16.
[2017-05-05] MEDS: ALBUTEROL FS 2.5 MG/0.5 ML VIAL.NEB NEB SCH ×2 (19:54→23:40)
[2017-05-05] MEDS: IPRATROPIUM NEB FS 0.5 MG/2.5 ML AMPUL.NEB NEB SCH ×2 (19:54→23:40)
--- NOTE | 2017-05-05 20:03 | NUR ---
PT REC'D TRACHED ON SHILEY 6 XLT ON NOTED [facility] VENT SETTINGS. PT IS COMFORTABLE AND NO RESP DISTRESS NOTED. VENT PLUGGED INTO RED OUTLET. ALARMS ARE SET AND AUDIBLE. MYKEU BAG BEDSIDE. WILL CONTINUE TO MONITOR. Addendum: 05/06/17 at 0523 by RADHA SQUIRES RT Amended: Links added.
[2017-05-05] MEDS: PEPCID GT SCH (21:00)
[2017-05-05] MEDS: PROSOURCE / PROSTAT (PYXIS) 30 ML UDC GT SCH (21:01)
[2017-05-05] MEDS: MULTIVIT, IRON, MIN NO. 8, FA 1 TAB GT SCH (21:01)
[2017-05-05] MEDS: NYSTATIN TOP POWDER 15 GM BOTTLE TP SCH (21:02)
[2017-05-05] MEDS: ASCORBIC ACID 500 MG TABLET GT SCH (21:02)
[2017-05-05] MEDS: GENTAMICIN 0.1% OINT 15 GM TUBE TP SCH (21:02)
[2017-05-05] MEDS: MINERAL OIL/PETROLATUM,WHITE 454 GM JAR TP SCH (21:02)
[2017-05-05] MEDS: Z GUARD REMEDY 4 OZ OINT TP SCH ×2 (21:02)
[2017-05-05] MEDS: HYDROGEN PEROXIDE 480 ML BOTTLE TP SCH (21:02)
[2017-05-05 22:25] VITALS: BP 106/63
[2017-05-06] MEDS: SUCRALFATE 1 G/10 ML UDC GT SCH ×6 (00:19→21:20)
[2017-05-06] MEDS: IPRATROPIUM NEB FS 0.5 MG/2.5 ML AMPUL.NEB NEB SCH ×6 (03:30→23:16)
[2017-05-06] MEDS: ALBUTEROL FS 2.5 MG/0.5 ML VIAL.NEB NEB SCH ×6 (03:30→23:16)
[2017-05-06] MEDS: POLYVINYL ALCOHOL 15 ML BOTTLE EACHEYE SCH ×3 (05:42→21:20)
[2017-05-06] MEDS: OMEPRAZOLE 20 MG CAPSULE.DR GT SCH (05:43)
[2017-05-06 07:39] VITALS: BP 97/62
[2017-05-06] MEDS: OCUSOFT LID SCRUB TP SCH ×2 (08:55→17:00)
[2017-05-06] MEDS: PEPCID GT SCH ×2 (08:55→21:20)
[2017-05-06] MEDS: HYDROGEN PEROXIDE 480 ML BOTTLE TP SCH ×2 (08:55→21:21)
[2017-05-06] MEDS: MINERAL OIL/PETROLATUM,WHITE 454 GM JAR TP SCH ×2 (08:55→21:21)
[2017-05-06] MEDS: GENTAMICIN 0.1% OINT 15 GM TUBE TP SCH ×2 (08:55→21:21)
[2017-05-06] MEDS: CHLORHEXIDINE GLUCONATE 15 ML UDC MM SCH ×2 (08:55→17:09)
[2017-05-06] MEDS: Z GUARD REMEDY 4 OZ OINT TP SCH ×4 (08:56→21:21)
[2017-05-06] MEDS: NYSTATIN TOP POWDER 15 GM BOTTLE TP SCH ×2 (08:56→21:21)
[2017-05-06] MEDS: FIBERSOURCE HN 1,000 ML BOTTLE GT PRN (12:37)
--- NOTE | 2017-05-06 19:30 | NUR ---
RT RECEIVED PT TRACHED AND VENT DEPENDENT. VENTS SETTINGS NOTED AND ALARMS WERE CHECKED AND AUDIBLE. HOSPITAL CLEANING SPECIALIST DONE AND TRACH IS SECURE. VENT PLUGGED IN RED OUTLET. AMBU BAG AND SPARE TRACH NOTED HOB. SX MOD THK NARAYAN SECRETIONS. NO RESP DISTRESS NOTED AT THIS TIME, WILL CONTINUE TO MONITOR T/O SHIFT.
[2017-05-06 20:26] VITALS: BP 114/74
[2017-05-06] MEDS: PROSOURCE / PROSTAT (PYXIS) 30 ML UDC GT SCH (21:20)
[2017-05-06] MEDS: MULTIVIT, IRON, MIN NO. 8, FA 1 TAB GT SCH (21:21)
[2017-05-06] MEDS: ASCORBIC ACID 500 MG TABLET GT SCH (21:21)
[2017-05-07] MEDS: SUCRALFATE 1 G/10 ML UDC GT SCH ×6 (00:13→20:55)
[2017-05-07] MEDS: FIBERSOURCE HN 1,000 ML BOTTLE GT PRN ×2 (00:30→20:57)
[2017-05-07] MEDS: IPRATROPIUM NEB FS 0.5 MG/2.5 ML AMPUL.NEB NEB SCH ×6 (03:44→23:37)
[2017-05-07] MEDS: ALBUTEROL FS 2.5 MG/0.5 ML VIAL.NEB NEB SCH ×6 (03:44→23:37)
[2017-05-07] MEDS: POLYVINYL ALCOHOL 15 ML BOTTLE EACHEYE SCH ×3 (05:14→20:55)
[2017-05-07] MEDS: OMEPRAZOLE 20 MG CAPSULE.DR GT SCH (05:14)
--- NOTE | 2017-05-07 06:19 | NUR ---
Pt had 1x bowel movement soft and mucus consistency.No diarrhea noted.Will continue to monitor.
[2017-05-07 07:38] VITALS: BP 104/55
[2017-05-07] MEDS: PEPCID GT SCH ×2 (08:35→20:55)
[2017-05-07] MEDS: MINERAL OIL/PETROLATUM,WHITE 454 GM JAR TP SCH ×2 (08:37→20:56)
[2017-05-07] MEDS: CHLORHEXIDINE GLUCONATE 15 ML UDC MM SCH ×2 (08:37→17:00)
[2017-05-07] MEDS: NYSTATIN TOP POWDER 15 GM BOTTLE TP SCH ×2 (08:38→20:56)
[2017-05-07] MEDS: OCUSOFT LID SCRUB TP SCH ×2 (08:38→17:00)
[2017-05-07] MEDS: HYDROGEN PEROXIDE 480 ML BOTTLE TP SCH ×2 (08:38→20:56)
[2017-05-07] MEDS: Z GUARD REMEDY 4 OZ OINT TP SCH ×4 (08:38→20:56)
[2017-05-07] MEDS: GENTAMICIN 0.1% OINT 15 GM TUBE TP SCH ×2 (09:00→20:56)
--- NOTE | 2017-05-07 14:02 | NUR ---
Residents daughter Olivia signed admission intake paperwork (patient rights acknowledgement, documentation of preferred intensity of care, conditions of admission, an important message from medicare about your rights, [place] Standard Admission Agreement, and voluntary prior express consent form). Per resident's daughter, resident to remain full code.
--- NOTE | 2017-05-07 14:03 | NUR ---
Resident's daughter stated that she has not yet been able to receive the resident's SSI money and will go back to the social security office once she leaves the hospital. She stated that resident should be receiving $50.00/month, as resident has a share of cost. She stated that she would like to buy him some clothing and necessities.
[2017-05-07] MEDS: MORPHINE SULFATE 10 MG/5 ML GT PRN (14:29)
[2017-05-07 20:18] VITALS: BP 101/62
[2017-05-07] MEDS: ASCORBIC ACID 500 MG TABLET GT SCH (20:56)
[2017-05-07] MEDS: MULTIVIT, IRON, MIN NO. 8, FA 1 TAB GT SCH (20:56)
[2017-05-07] MEDS: PROSOURCE / PROSTAT (PYXIS) 30 ML UDC GT SCH (20:56)
[2017-05-08] MEDS: SUCRALFATE 1 G/10 ML UDC GT SCH ×6 (01:00→21:00)
[2017-05-08] MEDS: IPRATROPIUM NEB FS 0.5 MG/2.5 ML AMPUL.NEB NEB SCH ×3 (03:30→23:19)
[2017-05-08] MEDS: ALBUTEROL FS 2.5 MG/0.5 ML VIAL.NEB NEB SCH ×3 (03:30→23:19)
[2017-05-08] MEDS: POLYVINYL ALCOHOL 15 ML BOTTLE EACHEYE SCH ×3 (05:15→21:00)
[2017-05-08] MEDS: OMEPRAZOLE 20 MG CAPSULE.DR GT SCH (05:15)
--- NOTE | 2017-05-08 06:02 | NUR ---
Pt had 2x soft small bowel movement.
--- NOTE | 2017-05-08 06:57 | NUR ---
COMMISSION CLERK Resident awake without any sign of acute distress. Remains in isolation for C diff. Noted 2x large BM during shift. Good hussain care provided. Necessary isolation precautions observed at all times. Needs attended, made comfortable, Will closely monitor.
[2017-05-08 07:25] VITALS: BP 111/70
[2017-05-08] MEDS: NYSTATIN TOP POWDER 15 GM BOTTLE TP SCH ×2 (09:00→21:01)
[2017-05-08] MEDS: MINERAL OIL/PETROLATUM,WHITE 454 GM JAR TP SCH ×2 (09:00→21:01)
[2017-05-08] MEDS: GENTAMICIN 0.1% OINT 15 GM TUBE TP SCH (09:00)
[2017-05-08] MEDS: OCUSOFT LID SCRUB TP SCH ×2 (09:00→17:17)
[2017-05-08] MEDS: Z GUARD REMEDY 4 OZ OINT TP SCH ×4 (09:00→21:01)
[2017-05-08] MEDS: HYDROGEN PEROXIDE 480 ML BOTTLE TP SCH ×2 (09:00→21:01)
[2017-05-08] MEDS: CHLORHEXIDINE GLUCONATE 15 ML UDC MM SCH ×2 (09:44→17:17)
[2017-05-08] MEDS: PEPCID GT SCH ×2 (09:44→21:00)
--- NOTE | 2017-05-08 13:41 | NUR ---
INTERDISCIPLINARY TEAM CONFERENCE (IDT) was held today. Resident's daughter Olivia unable to attend. Dr. Reese and the interdisciplinary team reviewed the current plan of care in detail. New orders were reviewed. Resident continues to refuse suctioning and care. He is combative with the nursing staff. Charge nurse will ask infection control when isolation can be discontinued for c. diff. No new orders were given.
[2017-05-08] MEDS: FIBERSOURCE HN 1,000 ML BOTTLE GT PRN (14:07)
--- NOTE | 2017-05-08 18:00 | NUR ---
Seen and examined by Isidra Ayala NP for Dr. Reese no new order given.
--- NOTE | 2017-05-08 18:44 | NUR ---
Resident on S/P ATB therapy Vancomycin via GTube for stool c.diff. resident still noted with X2, soft large amount of bowel movement during the shift. isolation precaution observed as ordered. pt afebrile. no respiratory distress noted. kept clean and dry. kept comfortable in bed. charge nurse aware.
[2017-05-08] MEDS: PROSOURCE / PROSTAT (PYXIS) 30 ML UDC GT SCH (21:01)
[2017-05-08] MEDS: MULTIVIT, IRON, MIN NO. 8, FA 1 TAB GT SCH (21:01)
[2017-05-08] MEDS: ASCORBIC ACID 500 MG TABLET GT SCH (21:01)
[2017-05-08 21:17] VITALS: BP 113/69
[2017-05-09] MEDS: SUCRALFATE 1 G/10 ML UDC GT SCH ×6 (00:28→21:16)
[2017-05-09] MEDS: IPRATROPIUM NEB FS 0.5 MG/2.5 ML AMPUL.NEB NEB SCH ×6 (04:00→23:34)
[2017-05-09] MEDS: ALBUTEROL FS 2.5 MG/0.5 ML VIAL.NEB NEB SCH ×6 (04:00→23:34)
[2017-05-09] MEDS: POLYVINYL ALCOHOL 15 ML BOTTLE EACHEYE SCH ×3 (05:26→21:16)
[2017-05-09] MEDS: OMEPRAZOLE 20 MG CAPSULE.DR GT SCH (05:26)
[2017-05-09] MEDS: FIBERSOURCE HN 1,000 ML BOTTLE GT PRN (05:43)
[2017-05-09 07:30] VITALS: BP 110/73
[2017-05-09] MEDS: OCUSOFT LID SCRUB TP SCH ×2 (09:15→16:34)
[2017-05-09] MEDS: NYSTATIN TOP POWDER 15 GM BOTTLE TP SCH ×2 (09:15→21:16)
[2017-05-09] MEDS: MINERAL OIL/PETROLATUM,WHITE 454 GM JAR TP SCH ×2 (09:15→21:16)
[2017-05-09] MEDS: Z GUARD REMEDY 4 OZ OINT TP SCH ×4 (09:15→21:16)
[2017-05-09] MEDS: PEPCID GT SCH ×2 (09:15→21:16)
[2017-05-09] MEDS: CHLORHEXIDINE GLUCONATE 15 ML UDC MM SCH ×2 (09:15→16:34)
[2017-05-09] MEDS: HYDROGEN PEROXIDE 480 ML BOTTLE TP SCH ×2 (09:15→21:16)
--- NOTE | 2017-05-09 18:45 | NUR ---
Pt had three soft bowel movements during this shift.
[2017-05-09 20:00] VITALS: BP 108/59
[2017-05-09] MEDS: MULTIVIT, IRON, MIN NO. 8, FA 1 TAB GT SCH (21:16)
[2017-05-09] MEDS: ASCORBIC ACID 500 MG TABLET GT SCH (21:16)
[2017-05-09] MEDS: PROSOURCE / PROSTAT (PYXIS) 30 ML UDC GT SCH (21:16)
[2017-05-09] MEDS: ZINC OXIDE 30 GM TUBE TP SCH (21:17)
[2017-05-10] MEDS: SUCRALFATE 1 G/10 ML UDC GT SCH ×6 (00:36→21:34)
[2017-05-10] MEDS: IPRATROPIUM NEB FS 0.5 MG/2.5 ML AMPUL.NEB NEB SCH ×5 (02:49→19:53)
[2017-05-10] MEDS: ALBUTEROL FS 2.5 MG/0.5 ML VIAL.NEB NEB SCH ×5 (02:49→19:53)
[2017-05-10] MEDS: POLYVINYL ALCOHOL 15 ML BOTTLE EACHEYE SCH ×3 (05:35→21:34)
[2017-05-10] MEDS: OMEPRAZOLE 20 MG CAPSULE.DR GT SCH (05:35)
--- NOTE | 2017-05-10 07:28 | NUR ---
Noted 3 soft BM on patient during shift. Good perineal care rendered. Made comfortable. Remains in isolation for c diff.
[2017-05-10 07:54] VITALS: BP 106/71
[2017-05-10] MEDS: OCUSOFT LID SCRUB TP SCH ×2 (09:00→17:36)
[2017-05-10] MEDS: CHLORHEXIDINE GLUCONATE 15 ML UDC MM SCH ×2 (09:00→17:36)
[2017-05-10] MEDS: HYDROGEN PEROXIDE 480 ML BOTTLE TP SCH ×2 (09:38→21:34)
[2017-05-10] MEDS: MINERAL OIL/PETROLATUM,WHITE 454 GM JAR TP SCH ×2 (09:38→21:34)
[2017-05-10] MEDS: PEPCID GT SCH ×2 (09:38→21:34)
[2017-05-10] MEDS: ZINC OXIDE 30 GM TUBE TP SCH ×2 (09:39→21:34)
[2017-05-10] MEDS: Z GUARD REMEDY 4 OZ OINT TP SCH ×4 (09:39→21:34)
[2017-05-10] MEDS: NYSTATIN TOP POWDER 15 GM BOTTLE TP SCH ×2 (09:39→21:34)
[2017-05-10] MEDS: FIBERSOURCE HN 1,000 ML BOTTLE GT PRN (11:47)
[2017-05-10 19:50] VITALS: BP 121/78
[2017-05-10] MEDS: ASCORBIC ACID 500 MG TABLET GT SCH (21:34)
[2017-05-10] MEDS: PROSOURCE / PROSTAT (PYXIS) 30 ML UDC GT SCH (21:34)
[2017-05-10] MEDS: MULTIVIT, IRON, MIN NO. 8, FA 1 TAB GT SCH (21:34)
[2017-05-11] MEDS: ALBUTEROL FS 2.5 MG/0.5 ML VIAL.NEB NEB SCH ×7 (00:02→22:53)
[2017-05-11] MEDS: IPRATROPIUM NEB FS 0.5 MG/2.5 ML AMPUL.NEB NEB SCH ×7 (00:02→22:53)
[2017-05-11] MEDS: SUCRALFATE 1 G/10 ML UDC GT SCH ×6 (01:00→20:45)
[2017-05-11] MEDS: POLYVINYL ALCOHOL 15 ML BOTTLE EACHEYE SCH ×3 (05:33→20:45)
[2017-05-11] MEDS: OMEPRAZOLE 20 MG CAPSULE.DR GT SCH (05:33)
--- NOTE | 2017-05-11 06:01 | NUR ---
RN NOTES No BM during shift.
[2017-05-11 08:02] VITALS: BP 132/68
[2017-05-11] MEDS: CHLORHEXIDINE GLUCONATE 15 ML UDC MM SCH ×2 (09:00→17:48)
[2017-05-11] MEDS: PEPCID GT SCH ×2 (09:05→20:45)
[2017-05-11] MEDS: MINERAL OIL/PETROLATUM,WHITE 454 GM JAR TP SCH ×2 (09:05→20:45)
[2017-05-11] MEDS: OCUSOFT LID SCRUB TP SCH ×2 (09:06→17:48)
[2017-05-11] MEDS: NYSTATIN TOP POWDER 15 GM BOTTLE TP SCH ×2 (09:07→20:45)
[2017-05-11] MEDS: HYDROGEN PEROXIDE 480 ML BOTTLE TP SCH ×2 (09:07→20:45)
[2017-05-11] MEDS: Z GUARD REMEDY 4 OZ OINT TP SCH ×4 (09:08→20:46)
[2017-05-11] MEDS: ZINC OXIDE 30 GM TUBE TP SCH ×2 (09:08→20:46)
--- NOTE | 2017-05-11 19:00 | NUR ---
Pt had three soft bowel movements during this shift.
--- NOTE | 2017-05-11 19:14 | NUR ---
PT STABLE ON RECEIVED VENTS SETTINGS. NO S/S OF SOB NOTED. ALARMS SET AND AUDIBLE THROUGHOUT SUBACUTE UNIT. MECHANICAL VENTILATOR PLUGGED INTO RED OUTLET. PT SX Q2 & PRN. TRACH CARE DONE. ALIE MONTEZ & MELISA AT [facility] WILL CONTINUE TO MONITOR Addendum: 05/11/17 at 1914 by ROXY JOHNSON RT Amended: Links added.
[2017-05-11 19:57] VITALS: BP 122/76
[2017-05-11] MEDS: PROSOURCE / PROSTAT (PYXIS) 30 ML UDC GT SCH (20:45)
[2017-05-11] MEDS: ASCORBIC ACID 500 MG TABLET GT SCH (20:45)
[2017-05-11] MEDS: MULTIVIT, IRON, MIN NO. 8, FA 1 TAB GT SCH (20:45)
[2017-05-11] MEDS: FIBERSOURCE HN 1,000 ML BOTTLE GT PRN (20:46)
[2017-05-12] MEDS: SUCRALFATE 1 G/10 ML UDC GT SCH ×6 (00:13→21:09)
[2017-05-12] MEDS: IPRATROPIUM NEB FS 0.5 MG/2.5 ML AMPUL.NEB NEB SCH ×6 (03:25→23:44)
[2017-05-12] MEDS: ALBUTEROL FS 2.5 MG/0.5 ML VIAL.NEB NEB SCH ×6 (03:25→23:44)
--- NOTE | 2017-05-12 04:07 | NUR ---
PT REC'D TRACHED ON [facility] VENT SETTINGS. PT IS COMFORTABLE AND NO RESP DISTRESS NOTED. VENT PLUGGED INTO RED OUTLET. ALARMS ARE SET AND AUDIBLE. AMBU BAG BEDSIDE. WILL CONTINUE TO MONITOR. Addendum: 05/12/17 at 0407 by CHELSIE MAS RT Amended: Links added.
[2017-05-12] MEDS: OMEPRAZOLE 20 MG CAPSULE.DR GT SCH (05:17)
[2017-05-12] MEDS: POLYVINYL ALCOHOL 15 ML BOTTLE EACHEYE SCH ×3 (05:17→21:09)
--- NOTE | 2017-05-12 06:57 | NUR ---
RN NOTES No BM during shift.
[2017-05-12 07:38] VITALS: BP 108/83
[2017-05-12] MEDS: MINERAL OIL/PETROLATUM,WHITE 454 GM JAR TP SCH ×2 (08:55→21:09)
[2017-05-12] MEDS: CHLORHEXIDINE GLUCONATE 15 ML UDC MM SCH ×2 (08:55→17:22)
[2017-05-12] MEDS: OCUSOFT LID SCRUB TP SCH ×2 (08:55→17:22)
[2017-05-12] MEDS: HYDROGEN PEROXIDE 480 ML BOTTLE TP SCH ×2 (08:55→21:09)
[2017-05-12] MEDS: PEPCID GT SCH ×2 (08:55→21:09)
[2017-05-12] MEDS: NYSTATIN TOP POWDER 15 GM BOTTLE TP SCH ×2 (08:55→21:09)
[2017-05-12] MEDS: ZINC OXIDE 30 GM TUBE TP SCH ×2 (08:56→21:09)
[2017-05-12] MEDS: Z GUARD REMEDY 4 OZ OINT TP SCH ×4 (08:56→21:09)
--- NOTE | 2017-05-12 17:18 | NUR ---
Open skin noted on left forearm. Received order to apply triple antibiotic ointment and cover with Mepilex q shift for 14 days. Notified pt's daughter.
--- NOTE | 2017-05-12 18:52 | NUR ---
Pt had 2 soft bowel movements today. No loose stool noted.
[2017-05-12 19:58] VITALS: BP 101/65
[2017-05-12] MEDS: NEOMY SULF/BACITRAC ZN/POLY 15 GM TUBE TP SCH (21:09)
[2017-05-12] MEDS: MULTIVIT, IRON, MIN NO. 8, FA 1 TAB GT SCH (21:09)
[2017-05-12] MEDS: PROSOURCE / PROSTAT (PYXIS) 30 ML UDC GT SCH (21:09)
[2017-05-12] MEDS: ASCORBIC ACID 500 MG TABLET GT SCH (21:09)
[2017-05-13] MEDS: SUCRALFATE 1 G/10 ML UDC GT SCH ×6 (00:29→21:32)
[2017-05-13] MEDS: ALBUTEROL FS 2.5 MG/0.5 ML VIAL.NEB NEB SCH ×5 (03:04→23:03)
[2017-05-13] MEDS: IPRATROPIUM NEB FS 0.5 MG/2.5 ML AMPUL.NEB NEB SCH ×5 (03:04→23:03)
--- NOTE | 2017-05-13 04:28 | NUR ---
PT REC'D TRACHED ON [facility] VENT SETTINGS. PT IS COMFORTABLE AND NO RESP DISTRESS NOTED. VENT PLUGGED INTO RED OUTLET. ALARMS ARE SET AND AUDIBLE. AMBU BAG BEDSIDE. WILL CONTINUE TO MONITOR. Addendum: 05/13/17 at 0428 by CHELSIE MAS RT Amended: Links added.
[2017-05-13] MEDS: OMEPRAZOLE 20 MG CAPSULE.DR GT SCH (05:43)
[2017-05-13] MEDS: POLYVINYL ALCOHOL 15 ML BOTTLE EACHEYE SCH ×3 (05:43→21:31)
--- NOTE | 2017-05-13 06:30 | NUR ---
RN NOTES 2 BM formed.
[2017-05-13 07:52] VITALS: BP 126/53
[2017-05-13] MEDS: MINERAL OIL/PETROLATUM,WHITE 454 GM JAR TP SCH ×2 (08:59→21:32)
[2017-05-13] MEDS: PEPCID GT SCH ×2 (08:59→21:32)
[2017-05-13] MEDS: CHLORHEXIDINE GLUCONATE 15 ML UDC MM SCH ×2 (08:59→17:09)
[2017-05-13] MEDS: OCUSOFT LID SCRUB TP SCH ×2 (09:00→17:09)
[2017-05-13] MEDS: Z GUARD REMEDY 4 OZ OINT TP SCH ×4 (09:00→21:33)
[2017-05-13] MEDS: NYSTATIN TOP POWDER 15 GM BOTTLE TP SCH ×2 (09:00→21:32)
[2017-05-13] MEDS: ZINC OXIDE 30 GM TUBE TP SCH ×2 (09:00→21:33)
[2017-05-13] MEDS: NEOMY SULF/BACITRAC ZN/POLY 15 GM TUBE TP SCH ×2 (09:00→21:34)
[2017-05-13] MEDS: HYDROGEN PEROXIDE 480 ML BOTTLE TP SCH ×2 (09:00→21:32)
[2017-05-13] MEDS: FIBERSOURCE HN 1,000 ML BOTTLE GT PRN (18:08)
[2017-05-13 19:49] VITALS: BP 152/67
[2017-05-13] MEDS: PROSOURCE / PROSTAT (PYXIS) 30 ML UDC GT SCH (21:32)
[2017-05-13] MEDS: MULTIVIT, IRON, MIN NO. 8, FA 1 TAB GT SCH (21:32)
[2017-05-13] MEDS: ASCORBIC ACID 500 MG TABLET GT SCH (21:33)
[2017-05-14] MEDS: SUCRALFATE 1 G/10 ML UDC GT SCH ×6 (01:00→21:21)
[2017-05-14] MEDS: ALBUTEROL FS 2.5 MG/0.5 ML VIAL.NEB NEB SCH ×6 (04:20→23:20)
[2017-05-14] MEDS: IPRATROPIUM NEB FS 0.5 MG/2.5 ML AMPUL.NEB NEB SCH ×6 (04:20→23:20)
[2017-05-14] MEDS: POLYVINYL ALCOHOL 15 ML BOTTLE EACHEYE SCH ×3 (05:28→21:21)
[2017-05-14] MEDS: OMEPRAZOLE 20 MG CAPSULE.DR GT SCH (05:28)
--- NOTE | 2017-05-14 05:46 | NUR ---
RT Pt trach remains on vent on ordered settings. no resp distress noted. Addendum: 05/14/17 at 0546 by MANNY ESCOBEDO RT Amended: Links added.
[2017-05-14] MEDS: FIBERSOURCE HN 1,000 ML BOTTLE GT PRN (05:56)
--- NOTE | 2017-05-14 06:59 | NUR ---
Pt had 2x bowel movement soft and mucus in consistency.
[2017-05-14 08:00] VITALS: BP 97/62
[2017-05-14] MEDS: HYDROGEN PEROXIDE 480 ML BOTTLE TP SCH ×2 (08:59→21:21)
[2017-05-14] MEDS: MINERAL OIL/PETROLATUM,WHITE 454 GM JAR TP SCH ×2 (08:59→21:22)
[2017-05-14] MEDS: PEPCID GT SCH ×2 (08:59→21:21)
[2017-05-14] MEDS: CHLORHEXIDINE GLUCONATE 15 ML UDC MM SCH ×2 (08:59→17:00)
[2017-05-14] MEDS: OCUSOFT LID SCRUB TP SCH ×2 (08:59→17:00)
[2017-05-14] MEDS: NYSTATIN TOP POWDER 15 GM BOTTLE TP SCH ×2 (09:00→21:21)
[2017-05-14] MEDS: Z GUARD REMEDY 4 OZ OINT TP SCH ×4 (09:00→21:22)
[2017-05-14] MEDS: NEOMY SULF/BACITRAC ZN/POLY 15 GM TUBE TP SCH ×3 (09:00→21:22)
[2017-05-14] MEDS: ZINC OXIDE 30 GM TUBE TP SCH ×2 (09:01→21:22)
--- NOTE | 2017-05-14 18:35 | NUR ---
Pt had 3 soft bowel movements with foul smell during this shift.
--- NOTE | 2017-05-14 18:51 | NUR ---
Pt noted with open skin on the right upper arm. Received order to apply triple antibiotic ointment and cover with dry dressing q shift for 14 days. Notified
[2017-05-14 19:19] VITALS: BP 100/57
[2017-05-14] MEDS: PROSOURCE / PROSTAT (PYXIS) 30 ML UDC GT SCH (21:21)
[2017-05-14] MEDS: MULTIVIT, IRON, MIN NO. 8, FA 1 TAB GT SCH (21:21)
[2017-05-14] MEDS: ASCORBIC ACID 500 MG TABLET GT SCH (21:21)
[2017-05-15] MEDS: SUCRALFATE 1 G/10 ML UDC GT SCH ×6 (01:00→21:19)
[2017-05-15] MEDS: IPRATROPIUM NEB FS 0.5 MG/2.5 ML AMPUL.NEB NEB SCH ×5 (03:26→19:30)
[2017-05-15] MEDS: ALBUTEROL FS 2.5 MG/0.5 ML VIAL.NEB NEB SCH ×5 (03:26→19:30)
[2017-05-15] MEDS: POLYVINYL ALCOHOL 15 ML BOTTLE EACHEYE SCH ×3 (05:28→21:19)
[2017-05-15] MEDS: OMEPRAZOLE 20 MG CAPSULE.DR GT SCH (05:28)
[2017-05-15] MEDS: FIBERSOURCE HN 1,000 ML BOTTLE GT PRN ×2 (05:48→22:45)
--- NOTE | 2017-05-15 06:47 | NUR ---
Pt had 2x soft bowel movement moderate amount.
[2017-05-15 07:55] VITALS: BP 105/65
[2017-05-15] MEDS: NYSTATIN TOP POWDER 15 GM BOTTLE TP SCH ×2 (09:34→21:20)
[2017-05-15] MEDS: HYDROGEN PEROXIDE 480 ML BOTTLE TP SCH ×2 (09:34→21:20)
[2017-05-15] MEDS: MINERAL OIL/PETROLATUM,WHITE 454 GM JAR TP SCH ×2 (09:34→21:20)
[2017-05-15] MEDS: PEPCID GT SCH ×2 (09:34→21:20)
[2017-05-15] MEDS: Z GUARD REMEDY 4 OZ OINT TP SCH ×4 (09:34→21:20)
[2017-05-15] MEDS: CHLORHEXIDINE GLUCONATE 15 ML UDC MM SCH ×2 (09:34→17:26)
[2017-05-15] MEDS: OCUSOFT LID SCRUB TP SCH ×2 (09:34→17:26)
[2017-05-15] MEDS: NEOMY SULF/BACITRAC ZN/POLY 15 GM TUBE TP SCH ×4 (09:34→21:20)
[2017-05-15] MEDS: ZINC OXIDE 30 GM TUBE TP SCH ×2 (09:35→21:20)
[2017-05-15 20:22] VITALS: BP 90/67
[2017-05-15] MEDS: ASCORBIC ACID 500 MG TABLET GT SCH (21:20)
[2017-05-15] MEDS: CLOTRIMAZOLE 1% CREAM 24 GM TUBE TP SCH (21:20)
[2017-05-15] MEDS: PROSOURCE / PROSTAT (PYXIS) 30 ML UDC GT SCH (21:20)
[2017-05-15] MEDS: MULTIVIT, IRON, MIN NO. 8, FA 1 TAB GT SCH (21:20)
[2017-05-16] MEDS: IPRATROPIUM NEB FS 0.5 MG/2.5 ML AMPUL.NEB NEB SCH ×7 (00:17→23:45)
[2017-05-16] MEDS: ALBUTEROL FS 2.5 MG/0.5 ML VIAL.NEB NEB SCH ×7 (00:17→23:45)
[2017-05-16] MEDS: SUCRALFATE 1 G/10 ML UDC GT SCH ×6 (01:20→21:06)
[2017-05-16] MEDS: OMEPRAZOLE 20 MG CAPSULE.DR GT SCH (05:30)
[2017-05-16] MEDS: POLYVINYL ALCOHOL 15 ML BOTTLE EACHEYE SCH ×3 (05:30→21:06)
[2017-05-16 08:02] VITALS: BP 99/69
--- NOTE | 2017-05-16 08:31 | NUR ---
pt. received on vent support via trach with alarms on and functioning. Vent is plugged into red outlet with ambubag and emergency trach tube @ bedside. Addendum: 05/16/17 at 1223 by LACEY HORTON RT Amended: Links added.
[2017-05-16] MEDS: CHLORHEXIDINE GLUCONATE 15 ML UDC MM SCH ×2 (08:48→17:57)
[2017-05-16] MEDS: MINERAL OIL/PETROLATUM,WHITE 454 GM JAR TP SCH ×2 (08:48→21:07)
[2017-05-16] MEDS: OCUSOFT LID SCRUB TP SCH ×2 (08:48→17:57)
[2017-05-16] MEDS: HYDROGEN PEROXIDE 480 ML BOTTLE TP SCH ×2 (08:48→21:07)
[2017-05-16] MEDS: PEPCID GT SCH ×2 (08:48→21:06)
[2017-05-16] MEDS: ZINC OXIDE 30 GM TUBE TP SCH ×2 (08:49→21:08)
[2017-05-16] MEDS: CLOTRIMAZOLE 1% CREAM 24 GM TUBE TP SCH ×2 (08:49→21:07)
[2017-05-16] MEDS: Z GUARD REMEDY 4 OZ OINT TP SCH ×3 (08:49→21:07)
[2017-05-16] MEDS: NYSTATIN TOP POWDER 15 GM BOTTLE TP SCH ×2 (08:49→21:07)
[2017-05-16] MEDS: NEOMY SULF/BACITRAC ZN/POLY 15 GM TUBE TP SCH ×4 (08:49→21:07)
[2017-05-16 20:13] VITALS: BP 87/57
[2017-05-16] MEDS: PROSOURCE / PROSTAT (PYXIS) 30 ML UDC GT SCH (21:06)
[2017-05-16] MEDS: ASCORBIC ACID 500 MG TABLET GT SCH (21:06)
[2017-05-16] MEDS: MULTIVIT, IRON, MIN NO. 8, FA 1 TAB GT SCH (21:06)
[2017-05-17] MEDS: SUCRALFATE 1 G/10 ML UDC GT SCH ×6 (01:00→21:14)
[2017-05-17] MEDS: ALBUTEROL FS 2.5 MG/0.5 ML VIAL.NEB NEB SCH ×6 (03:30→22:35)
[2017-05-17] MEDS: IPRATROPIUM NEB FS 0.5 MG/2.5 ML AMPUL.NEB NEB SCH ×6 (03:30→22:35)
--- NOTE | 2017-05-17 04:32 | NUR ---
RT NOTE: RECEIVED PT ON HT-70, ALARMS CHECKED AND AUDIBLE, AMBUBAG AT BEDSIDE, TRACH PATENT AND SECURED, TXS GIVEN ORDERED NO ADVERSE REACTION NOTED PT STABLE. WILL MONITOR CLOSELY. Addendum: 05/17/17 at 0434 by JAVIER WHALEN RT Amended: Links added.
[2017-05-17] MEDS: POLYVINYL ALCOHOL 15 ML BOTTLE EACHEYE SCH ×3 (04:53→21:14)
[2017-05-17] MEDS: OMEPRAZOLE 20 MG CAPSULE.DR GT SCH (05:46)
[2017-05-17] MEDS: FIBERSOURCE HN 1,000 ML BOTTLE GT PRN (05:47)
--- NOTE | 2017-05-17 07:15 | NUR ---
Male ryan pt received on mechanical vent. Pt ryan is secure. Vent is plugged into a red outlet, alarms are set and audible, and BMV is at bedside. Addendum: 05/17/17 at 0716 by KAYLIN GRANADOS RT Amended: Links added.
[2017-05-17 07:33] VITALS: BP 107/58
[2017-05-17] MEDS: ZINC OXIDE 30 GM TUBE TP SCH ×2 (09:00→21:15)
[2017-05-17] MEDS: OCUSOFT LID SCRUB TP SCH ×2 (09:00→16:35)
[2017-05-17] MEDS: CHLORHEXIDINE GLUCONATE 15 ML UDC MM SCH ×2 (09:00→16:35)
[2017-05-17] MEDS: PEPCID GT SCH ×2 (09:00→21:14)
[2017-05-17] MEDS: NEOMY SULF/BACITRAC ZN/POLY 15 GM TUBE TP SCH ×4 (09:00→21:15)
[2017-05-17] MEDS: MINERAL OIL/PETROLATUM,WHITE 454 GM JAR TP SCH ×2 (09:00→21:14)
[2017-05-17] MEDS: HYDROGEN PEROXIDE 480 ML BOTTLE TP SCH ×2 (09:00→21:14)
[2017-05-17] MEDS: CLOTRIMAZOLE 1% CREAM 24 GM TUBE TP SCH ×2 (09:00→21:15)
[2017-05-17] MEDS: NYSTATIN TOP POWDER 15 GM BOTTLE TP SCH ×2 (09:00→21:15)
[2017-05-17] MEDS: Z GUARD REMEDY 4 OZ OINT TP SCH ×2 (09:00→21:15)
[2017-05-17 20:07] VITALS: BP 98/58
[2017-05-17] MEDS: ASCORBIC ACID 500 MG TABLET GT SCH (21:14)
[2017-05-17] MEDS: MULTIVIT, IRON, MIN NO. 8, FA 1 TAB GT SCH (21:14)
[2017-05-17] MEDS: PROSOURCE / PROSTAT (PYXIS) 30 ML UDC GT SCH (21:14)
[2017-05-18] MEDS: SUCRALFATE 1 G/10 ML UDC GT SCH ×6 (01:23→21:08)
[2017-05-18] MEDS: ALBUTEROL FS 2.5 MG/0.5 ML VIAL.NEB NEB SCH ×6 (02:40→23:30)
[2017-05-18] MEDS: IPRATROPIUM NEB FS 0.5 MG/2.5 ML AMPUL.NEB NEB SCH ×6 (02:40→23:30)
[2017-05-18] MEDS: OMEPRAZOLE 20 MG CAPSULE.DR GT SCH (05:40)
[2017-05-18] MEDS: POLYVINYL ALCOHOL 15 ML BOTTLE EACHEYE SCH ×3 (05:40→21:08)
[2017-05-18 07:49] VITALS: BP 105/71
[2017-05-18] MEDS: HYDROGEN PEROXIDE 480 ML BOTTLE TP SCH ×2 (09:29→21:09)
[2017-05-18] MEDS: OCUSOFT LID SCRUB TP SCH ×2 (09:29→17:15)
[2017-05-18] MEDS: CHLORHEXIDINE GLUCONATE 15 ML UDC MM SCH ×2 (09:29→17:15)
[2017-05-18] MEDS: PEPCID GT SCH ×2 (09:29→21:08)
[2017-05-18] MEDS: MINERAL OIL/PETROLATUM,WHITE 454 GM JAR TP SCH ×2 (09:29→21:08)
[2017-05-18] MEDS: Z GUARD REMEDY 4 OZ OINT TP SCH ×2 (09:30→21:09)
[2017-05-18] MEDS: NYSTATIN TOP POWDER 15 GM BOTTLE TP SCH ×2 (09:30→21:09)
[2017-05-18] MEDS: NEOMY SULF/BACITRAC ZN/POLY 15 GM TUBE TP SCH ×4 (09:30→21:09)
[2017-05-18] MEDS: ZINC OXIDE 30 GM TUBE TP SCH ×2 (09:30→21:09)
[2017-05-18] MEDS: CLOTRIMAZOLE 1% CREAM 24 GM TUBE TP SCH ×2 (09:30→21:09)
--- NOTE | 2017-05-18 14:04 | NUR ---
SW met with the resident and spent time with him. Resident appreciative of the social science teacher's visit. SW provided the resident with the toy that his [id number] had sent him.
[2017-05-18] MEDS: FIBERSOURCE HN 1,000 ML BOTTLE GT PRN (15:20)
--- NOTE | 2017-05-18 18:30 | NUR ---
Pt had three soft bowel movements this shift.
[2017-05-18 19:54] VITALS: BP 109/73
[2017-05-18] MEDS: MULTIVIT, IRON, MIN NO. 8, FA 1 TAB GT SCH (21:08)
[2017-05-18] MEDS: PROSOURCE / PROSTAT (PYXIS) 30 ML UDC GT SCH (21:08)
[2017-05-18] MEDS: ASCORBIC ACID 500 MG TABLET GT SCH (21:08)
[2017-05-19] MEDS: SUCRALFATE 1 G/10 ML UDC GT SCH ×6 (00:10→21:11)
[2017-05-19] MEDS: ALBUTEROL FS 2.5 MG/0.5 ML VIAL.NEB NEB SCH ×6 (03:30→23:30)
[2017-05-19] MEDS: IPRATROPIUM NEB FS 0.5 MG/2.5 ML AMPUL.NEB NEB SCH ×6 (03:30→23:30)
[2017-05-19] MEDS: OMEPRAZOLE 20 MG CAPSULE.DR GT SCH (05:50)
[2017-05-19] MEDS: POLYVINYL ALCOHOL 15 ML BOTTLE EACHEYE SCH ×3 (05:50→21:11)
--- NOTE | 2017-05-19 07:40 | NUR ---
Male ryan pt received on mechanical vent. Pt ryan is secure. Vent is plugged into a red outlet, alarms are set and audible, and BVM is at bedside. Addendum: 05/19/17 at 0740 by KAYLIN GRANADOS RT Amended: Links added.
[2017-05-19 07:50] VITALS: BP 108/64
[2017-05-19] MEDS: NEOMY SULF/BACITRAC ZN/POLY 15 GM TUBE TP SCH ×4 (09:00→21:12)
[2017-05-19] MEDS: PEPCID GT SCH ×2 (09:48→21:11)
[2017-05-19] MEDS: CHLORHEXIDINE GLUCONATE 15 ML UDC MM SCH ×2 (09:48→16:15)
[2017-05-19] MEDS: NYSTATIN TOP POWDER 15 GM BOTTLE TP SCH ×2 (09:50→21:12)
[2017-05-19] MEDS: OCUSOFT LID SCRUB TP SCH ×2 (09:50→16:15)
[2017-05-19] MEDS: HYDROGEN PEROXIDE 480 ML BOTTLE TP SCH ×2 (09:50→21:12)
[2017-05-19] MEDS: CLOTRIMAZOLE 1% CREAM 24 GM TUBE TP SCH ×2 (09:50→21:12)
[2017-05-19] MEDS: MINERAL OIL/PETROLATUM,WHITE 454 GM JAR TP SCH ×2 (09:50→21:12)
[2017-05-19] MEDS: ZINC OXIDE 30 GM TUBE TP SCH ×2 (09:51→21:12)
[2017-05-19] MEDS: Z GUARD REMEDY 4 OZ OINT TP SCH ×2 (09:51→21:12)
[2017-05-19] MEDS: FIBERSOURCE HN 1,000 ML BOTTLE GT PRN (18:42)
[2017-05-19 19:52] VITALS: BP 141/73
[2017-05-19] MEDS: MULTIVIT, IRON, MIN NO. 8, FA 1 TAB GT SCH (21:11)
[2017-05-19] MEDS: ASCORBIC ACID 500 MG TABLET GT SCH (21:11)
[2017-05-19] MEDS: PROSOURCE / PROSTAT (PYXIS) 30 ML UDC GT SCH (21:11)
[2017-05-20] MEDS: SUCRALFATE 1 G/10 ML UDC GT SCH ×6 (00:17→20:48)
[2017-05-20] MEDS: ALBUTEROL FS 2.5 MG/0.5 ML VIAL.NEB NEB SCH ×6 (03:30→23:37)
[2017-05-20] MEDS: IPRATROPIUM NEB FS 0.5 MG/2.5 ML AMPUL.NEB NEB SCH ×6 (03:30→23:37)
[2017-05-20] MEDS: OMEPRAZOLE 20 MG CAPSULE.DR GT SCH (05:13)
[2017-05-20] MEDS: POLYVINYL ALCOHOL 15 ML BOTTLE EACHEYE SCH ×3 (05:13→20:48)
[2017-05-20 07:23] VITALS: BP 104/70
[2017-05-20] MEDS: CLOTRIMAZOLE 1% CREAM 24 GM TUBE TP SCH ×2 (09:40→20:50)
[2017-05-20] MEDS: CHLORHEXIDINE GLUCONATE 15 ML UDC MM SCH ×2 (09:40→17:00)
[2017-05-20] MEDS: NYSTATIN TOP POWDER 15 GM BOTTLE TP SCH ×2 (09:40→20:50)
[2017-05-20] MEDS: NEOMY SULF/BACITRAC ZN/POLY 15 GM TUBE TP SCH ×4 (09:40→20:50)
[2017-05-20] MEDS: HYDROGEN PEROXIDE 480 ML BOTTLE TP SCH ×2 (09:40→20:50)
[2017-05-20] MEDS: MINERAL OIL/PETROLATUM,WHITE 454 GM JAR TP SCH ×2 (09:40→20:50)
[2017-05-20] MEDS: OCUSOFT LID SCRUB TP SCH ×2 (09:40→17:00)
[2017-05-20] MEDS: PEPCID GT SCH ×2 (09:40→20:50)
[2017-05-20] MEDS: Z GUARD REMEDY 4 OZ OINT TP SCH ×2 (09:41→20:50)
[2017-05-20] MEDS: ZINC OXIDE 30 GM TUBE TP SCH ×2 (09:41→20:50)
[2017-05-20] MEDS: FIBERSOURCE HN 1,000 ML BOTTLE GT PRN (11:15)
--- NOTE | 2017-05-20 11:47 | NUR ---
Seen and examined by Dr. Vance, reported that resident with thick dark yellow secretions, refusing care especially oral and tracheal suctioning. MD saw the amount of secretions in the canister with new order to do chest Xray.
--- NOTE | 2017-05-20 16:50 | NUR ---
Chest Xray result relayed to Dr. Vance.
--- NOTE | 2017-05-20 18:00 | NUR ---
Patient had 4 x BM today, (1x watery and 3x soft BM). Patient incontinent of B and B function, kept dry and clean at all times. Patient afebrile. Patient closely monitored.
[2017-05-20 20:14] VITALS: BP 100/66
[2017-05-20] MEDS: ASCORBIC ACID 500 MG TABLET GT SCH (20:50)
[2017-05-20] MEDS: PROSOURCE / PROSTAT (PYXIS) 30 ML UDC GT SCH (20:50)
[2017-05-20] MEDS: MULTIVIT, IRON, MIN NO. 8, FA 1 TAB GT SCH (20:50)
[2017-05-20] MEDS: MORPHINE SULFATE 10 MG/5 ML GT PRN (20:54)
[2017-05-21] MEDS: SUCRALFATE 1 G/10 ML UDC GT SCH ×6 (00:10→20:12)
[2017-05-21] MEDS: FIBERSOURCE HN 1,000 ML BOTTLE GT PRN ×2 (01:54→18:53)
[2017-05-21] MEDS: ALBUTEROL FS 2.5 MG/0.5 ML VIAL.NEB NEB SCH ×6 (04:17→23:20)
[2017-05-21] MEDS: IPRATROPIUM NEB FS 0.5 MG/2.5 ML AMPUL.NEB NEB SCH ×6 (04:17→23:20)
[2017-05-21] MEDS: POLYVINYL ALCOHOL 15 ML BOTTLE EACHEYE SCH ×3 (05:08→20:12)
[2017-05-21] MEDS: OMEPRAZOLE 20 MG CAPSULE.DR GT SCH (05:09)
[2017-05-21] MEDS: SIMETHICONE SUSP 40 MG/0.6 ML BOTTLE GT PRN ×2 (05:09→19:51)
[2017-05-21 07:53] VITALS: BP 124/97
--- NOTE | 2017-05-21 07:58 | NUR ---
RT NOTE PATIENT RECEIVED ON MECHANICAL VENTILATION. SUCTION DONE, TRACH SECURED AND PATENT. HME REPLACED. ALARMS ON AND AUDIBLE. NO SOB NOTED. WILL MONITOR T/O SHIFT. Addendum: 05/21/17 at 1700 by MELISSA ARNDT RT Amended: Links added.
[2017-05-21] MEDS: NEOMY SULF/BACITRAC ZN/POLY 15 GM TUBE TP SCH ×5 (09:00→20:13)
[2017-05-21] MEDS: PEPCID GT SCH ×2 (09:36→20:12)
[2017-05-21] MEDS: CHLORHEXIDINE GLUCONATE 15 ML UDC MM SCH ×2 (09:36→17:59)
[2017-05-21] MEDS: MINERAL OIL/PETROLATUM,WHITE 454 GM JAR TP SCH ×2 (09:37→20:12)
[2017-05-21] MEDS: CLOTRIMAZOLE 1% CREAM 24 GM TUBE TP SCH ×2 (09:37→20:12)
[2017-05-21] MEDS: OCUSOFT LID SCRUB TP SCH ×2 (09:37→17:59)
[2017-05-21] MEDS: HYDROGEN PEROXIDE 480 ML BOTTLE TP SCH ×2 (09:37→20:12)
[2017-05-21] MEDS: NYSTATIN TOP POWDER 15 GM BOTTLE TP SCH ×2 (09:37→20:13)
[2017-05-21] MEDS: Z GUARD REMEDY 4 OZ OINT TP SCH ×2 (09:37→20:13)
--- NOTE | 2017-05-21 10:43 | NUR ---
Infection control nurse Rosario asked about pt's bowel movements. Notified her that pt had 4 bowel movements yesterday, one was watery. Rosario said to still keep pt on contact isolation for C diff.
--- NOTE | 2017-05-21 19:08 | NUR ---
Seen by FOUNTAIN CLERK Isidra Ayala. Relayed CXR result to her, no new order.
[2017-05-21] MEDS: MORPHINE SULFATE 10 MG/5 ML GT PRN (19:50)
[2017-05-21 19:55] VITALS: BP 120/78
[2017-05-21] MEDS: PROSOURCE / PROSTAT (PYXIS) 30 ML UDC GT SCH (20:12)
[2017-05-21] MEDS: ASCORBIC ACID 500 MG TABLET GT SCH (20:12)
[2017-05-21] MEDS: MULTIVIT, IRON, MIN NO. 8, FA 1 TAB GT SCH (20:12)
--- NOTE | 2017-05-21 21:00 | NUR ---
@ 1900 Pt received awake on ventilator with episode of SOB, increased HR of 140's rr 50's , Spo2 91% sxd large amount of yellowish greenish secretions from trach and moderate clear secretions from, mouth, pt also noted with episode of combativeness upon being suctioned, despite explanation of risks and benefits, still trying to hit staff while being suctioned, extra help with other staff needed to hold pts hands while rendering needed care for pt. Asked pt for any pain , patient nodded " NO" kept HOB elevated, repositioned pt and changed diaper, noted with xl- soft bm still on contact isolation for c-diff. @ 1930 RT at bedside made aware of pt's SOB episode , resp care and tx given by rt, pt still with cont episode of resp. distress @ 1950 PRN Morphine sulfate 2mg for severe pain l/t resp distress m/b increased HR and increased rr despite non pharmacologic interventions provided. @ 2100 Pt awake calm, clean and dry , with no episode of res distress, HR 110 RR 20.Will continue to monitor and anticipate needs.
[2017-05-22] MEDS: SUCRALFATE 1 G/10 ML UDC GT SCH ×3 (00:10→09:55)
--- NOTE | 2017-05-22 03:02 | NUR ---
PT REC'D TRACHED ON [facility] VENT SETTINGS. PT IS COMFORTABLE AND NO RESP DISTRESS NOTED. VENT PLUGGED INTO RED OUTLET. ALARMS ARE SET AND AUDIBLE. AMBU BAG BEDSIDE. WILL CONTINUE TO MONITOR. Addendum: 05/22/17 at 0302 by CHELSIE MAS RT Amended: Links added.
[2017-05-22] MEDS: ALBUTEROL FS 2.5 MG/0.5 ML VIAL.NEB NEB SCH ×4 (03:12→13:31)
[2017-05-22] MEDS: IPRATROPIUM NEB FS 0.5 MG/2.5 ML AMPUL.NEB NEB SCH ×4 (03:12→13:30)
[2017-05-22] MEDS: POLYVINYL ALCOHOL 15 ML BOTTLE EACHEYE SCH (05:20)
[2017-05-22] MEDS: SIMETHICONE SUSP 40 MG/0.6 ML BOTTLE GT PRN (05:20)
[2017-05-22] MEDS: OMEPRAZOLE 20 MG CAPSULE.DR GT SCH (05:20)
--- NOTE | 2017-05-22 06:37 | NUR ---
TOLERATED MEDS, GTF, WATER FLUSHES AND TXS, COMPLETED AM CARE DONE BY DELIMBER OPERATOR AND LNS , PT STILL NOTED WITH LARGE AMT OF YELLOWISH SECRETIONS, WITH EPISODES OF SOB DURING CARE AND REPOSITIONING, REMAINS AFEBRILE. X1 BM DURING SHIFT ;SOFT WITH MIX OF MUCOUS-SECRETION LIKE , STRONG FOUL ODOR, REMAINS ON CONTACT ISOLATION PRECAUTIONS FOR C- DIFF. KEPT PT CLEAN AND DRY, REPOSITIONED Q 2 HRS, HOB ELEVATED, SR'S UP X 2 FOR SAFETY, CALL LIGHT WITHIN PT'S REACH. PT IS CALM AND SLEEPING AT THIS TIME.
[2017-05-22 07:43] VITALS: BP 95/55
[2017-05-22] MEDS: PEPCID GT SCH (09:55)
[2017-05-22] MEDS: CHLORHEXIDINE GLUCONATE 15 ML UDC MM SCH (09:56)
[2017-05-22] MEDS: Z GUARD REMEDY 4 OZ OINT TP SCH (09:56)
[2017-05-22] MEDS: HYDROGEN PEROXIDE 480 ML BOTTLE TP SCH (09:56)
[2017-05-22] MEDS: OCUSOFT LID SCRUB TP SCH (09:56)
[2017-05-22] MEDS: MINERAL OIL/PETROLATUM,WHITE 454 GM JAR TP SCH (09:56)
[2017-05-22] MEDS: NEOMY SULF/BACITRAC ZN/POLY 15 GM TUBE TP SCH ×3 (09:56)
[2017-05-22] MEDS: CLOTRIMAZOLE 1% CREAM 24 GM TUBE TP SCH (09:56)
[2017-05-22] MEDS: MORPHINE SULFATE 10 MG/5 ML GT PRN (09:58)
--- NOTE | 2017-05-22 10:40 | NUR ---
Dr. Reese notitifed resident with severe shortness of breath, RR >45, , 02 sat 80% with current vent setting, AC 10, TV 500, peep 5, F102 of 40%, increased F102 to 100%, O2 saturation improved to 95%, B/P 93/65, HR 40-68, T 100. Breathing treatment given, suctioned trach and mouth, PRN Morphine given. All interventions ineffective. Dr. Reese ordered ABG, Chest Xray and CBC and Ativan 1 mg, IVP. Placed a call to resident's daughter Amanda Olivo, to notify her of patient's change in condition and obtain consent for Ativan, however she did not respond to the call. Called resident's sister Elizabeth, reported change in condition and obtain telephone consent for Ativan use, witness by another LN. Order noted and carried out.
[2017-05-22] MEDS ORDERED: LORAZEPAM INJ 2 MG/ML VIAL IVP ONE (10:45)
[2017-05-22 11:03] LABS: ABG OXYGEN SATURATION 97.8 % (92.0-98.5); ABG PCO2 45.9 mmHg (35.0-45.0); ABG PO2 129.7 mmHg (75.0-100.0); AaDO2 537.4 mmHg; COHb 0.2 % (0.5-1.5); MetHb 0.6 % (0.0-1.5); PEEP,BG 5 cm H2O; SITE, ABG Left Brachial; VENT MODE, BG AC 100%; VT, ABG 500 mL
--- NOTE | 2017-05-22 11:45 | NUR ---
Resident seen and examined by Dr. Reese, with order to transfer resident to ER for evaluation, resident remain with RR 42-45, HR 120-128, Chest Xray done, result pending, MD Reese seen ABG result. Resident remain awake and shakes his head during oral suctioning. Notified nursing wax room supervisor of transfer order.
--- NOTE | 2017-05-22 11:50 | NUR ---
Resident's sister called back asking this nurse who make the decision in behalf of the patient. Informed Elizabeth that Amanda Olivo is the responsible libertarian since she has the power of employee benefits attorney. Barbara verbalized "I don't have a problem letting him go, but I don't want to take matters into my own hands, I love him very much, and I don't want him to suffer." Resident's sister informed of Dr. Reese's order to transfer resident to ER for evaluation. Notified PROCESSING MANAGER of resident's transfer c/o Rosalinda and gave brief report.
--- NOTE | 2017-05-22 12:10 | NUR ---
Resident transferred to ER, report given to charge nurse and admitting nurse, resident awake, responsive to stimulation, respiratory rate remain elevated, Ativan 1mg. IVP given prior to transfer, CBC not done, lab notified patient already in ER. Resident transferred via bed, connected with ventilator, with the following setting, AC 10, TV 500, peep 5 Fi02 100%, accompanied by this nurse and RT. O2 sat 98-100%, HR 120.
[2017-05-22] MEDS ORDERED: CHLO473M5 MM (12:52)
[2017-05-22] MEDS ORDERED: FAMO-131 GT (12:52)
[2017-05-22] MEDS ORDERED: EYEL1KIT TP (12:52)
[2017-05-22] MEDS ORDERED: MULT-659 GT (13:02)
[2017-05-22] MEDS ORDERED: SUCR1ORA GT (13:15)
[2017-05-22] MEDS ORDERED: SIME40DR7 GT (13:15)
[2017-05-22] MEDS ORDERED: OMEP20CA10 GT (13:15)
[2017-05-22] MEDS ORDERED: ONDA4TAB8 GT (13:15)
[2017-05-22] MEDS ORDERED: NEOM15OI3 TP (13:15)
--- NOTE | 2017-05-22 14:46 | NUR ---
Resident's daughter informed of transfer to ER. GONZALO completed bed hold notification and resident transfer or discharge form and placed a copy in the resident's chart. GONZALO mailed out resident transfer/discharge form and bed hold notification to the resident's daughter Olivia Olivo at her home address. GONZALO called the Office of the [facility] ([phone]) but was indicated to leave a voice message after no answer. GONZALO informed that resident was transferred to the emergency dept at [facility] due to a change of condition. GONZALO left her contact number and requested a call back.
[2017-05-22] MEDS ORDERED: CLOTRIMAZOLE 1% 15 GM TUBE TP SCH (21:00)
--- NOTE | 2017-05-25 10:21 | NUR ---
GONZALO called the resident's daughter Olivia Olivo to express condolences. She stated that she send up a [employer] page to collect money for the resident's cremation. GONZALO expressed to her that [facility] has an indigent fund for cremation and encouraged her to call the [facility] for more information. Olivia also asked the SW if resident has [place] [facility] [place] SW stated that she could call the nursing genetic supervisor to find out. GONZALO provided her with nursing genetic supervisor contact information. She stated she will call and will also come to the hospital today to picker and packer his belongings.
--- NOTE | 2017-05-25 10:30 | NUR ---
Left a message from the [employer] [facility] regarding the resident's passing.
--- NOTE | 2017-05-26 10:17 | NUR ---
GONZALO sent Resident Transfer or Discharge notice as requested by tarik White (Tel: FAX: [phone]) .
[2018-01-31] MEDS ORDERED: TUBERCULIN,PURIF.PROT.DERIV. 5 TU/0.1 ML VIAL ID SCH (09:00)
== END 2017-05-29 06:58 | disposition short-term general hospital (02) | DRG 207 ==
LOC: SA
PROVIDERS: ADMIT Internal Medicine; ATTEND Internal Medicine
PROC: 5A1955Z Respiratory Ventilation, Greater than 96 Consecutive Hours (ICD-10-PCS; principal; 2017-05-04)
DX: J96.11 Chronic respiratory failure with hypoxia (principal); E43 Unspecified severe protein-calorie malnutrition; G93.1 Anoxic brain damage, not elsewhere classified; A04.72 Enterocolitis due to Clostridium difficile, not specified as recurrent; K22.11 Ulcer of esophagus with bleeding; R53.2 Functional quadriplegia; I50.9 Heart failure, unspecified; I11.0 Hypertensive heart disease with heart failure; E87.8 Other disorders of electrolyte and fluid balance, not elsewhere classified; R64 Cachexia; Z99.11 Dependence on respirator [ventilator] status; K94.22 Gastrostomy infection; L03.311 Cellulitis of abdominal wall; D62 Acute posthemorrhagic anemia; R13.10 Dysphagia, unspecified; Z87.11 Personal history of peptic ulcer disease; I10 Essential (primary) hypertension; I25.10 Atherosclerotic heart disease of native coronary artery without angina pectoris; K44.9 Diaphragmatic hernia without obstruction or gangrene; I65.22 Occlusion and stenosis of left carotid artery; B35.1 Tinea unguium; Z87.19 Personal history of other diseases of the digestive system; Z86.73 Personal history of transient ischemic attack (TIA), and cerebral infarction without residual deficits; Z86.19 Personal history of other infectious and parasitic diseases; Y83.3 Surgical operation with formation of external stoma as the cause of abnormal reaction of the patient, or of later complication, without mention of misadventure at the time of the procedure; Y82.9 Unspecified medical devices associated with adverse incidents; Y92.129 Unspecified place in nursing home as the place of occurrence of the external cause; F19.10 Other psychoactive substance abuse, uncomplicated
CPT/HCPCS: 31720; 36600; 71045-TC; 82962-TC; 94002; 94003-TC; 94760-TC; 94762-TC; A4623; A7526; J2060

== ENCOUNTER 2017-05-22 12:29 | Inpatient (IN) | payer MEDICARE, OTHER ==
[~2017-05-22] VITALS: Ht 157.5 cm; Wt 49.9 kg
[2017-05-22] VITALS (16 sets, daily range): BP systolic 68–107; BP diastolic 44–77
--- NOTE | 2017-05-22 12:50 | NUR ---
PAGED DR JOSHUA.
[2017-05-22] MEDS ORDERED: EYEL1KIT TP (12:52)
[2017-05-22] MEDS ORDERED: FAMO-131 GT (12:52)
[2017-05-22] MEDS ORDERED: CHLO473M5 MM (12:52)
[2017-05-22] MEDS ORDERED: IV NS 0.9% 1,000 ML BAG IV ONE ×2 (13:00→13:30)
[2017-05-22] MEDS ORDERED: MULT-659 GT (13:02)
[2017-05-22] MEDS ORDERED: OMEP20CA10 GT (13:15)
[2017-05-22] MEDS ORDERED: NEOM15OI3 TP (13:15)
[2017-05-22] MEDS ORDERED: ONDA4TAB8 GT (13:15)
[2017-05-22] MEDS ORDERED: SIME40DR7 GT (13:15)
[2017-05-22] MEDS ORDERED: SUCR1ORA GT (13:15)
--- NOTE | 2017-05-22 13:23 | NUR ---
RT PT TRANSFERRED FROM SUBACUTE TO ER FOR HYPER VENTILATION. PT ON SHILEY 6 XLT DISTAL BILATERAL CHEST RISE LABORED BREATHING INCREASE HEART RATE THICK LARGE YELLOW SECRETIONS Addendum: 05/22/17 at 1329 by RAFAEL COX RT Amended: Links added.
[2017-05-22] MEDS ORDERED: LORAZEPAM INJ 2 MG/ML VIAL ONE (13:29)
[2017-05-22] MEDS ORDERED: PIPERACILLIN /TAZOBACTAM 3.375 G in IV D5W 50 ML IV ONE (13:30)
[2017-05-22] MEDS ORDERED: LORAZEPAM INJ 2 MG/ML VIAL IV ONE (13:30)
--- NOTE | 2017-05-22 13:30 | NUR ---
FROM [facility] SUB ACUTE, PT WAS SENT BY DR JOSHUA FOR HYPERVENTILATION, PT IS TRACHED ON VENT, RT AT BS. PT PUT ON THE MONITOR, INSERTED AN IV ON L WRIST. AT BS FOR EVAL.
[2017-05-22] MEDS ORDERED: Magnesium 1GM/D5W 100ML PREMIX 200 ML IV ONE ×2 (13:44→14:13)
[2017-05-22 13:47] LABS: CARBON DIOXIDE 27 mmol/L (21-32); CHLORIDE 105 mmol/L (98-107); SODIUM SERUM 138 mmol/L (136-145)
[2017-05-22 13:48] LABS: ALANINE AMINOTRANSFERASE 43 U/L (12-78); ALBUMIN 1.7 g/dL (3.4-5.0); ALKALINE PHOSPHATASE 247 U/L (46-116); ASPARTATE AMINOTRANSFERASE 65 U/L (15-37); B-TYPE NATRIURETIC PEPTIDE 3578 PG/ML (0-125); BILIRUBIN,DIRECT 0.5 mg/dL (0.0-0.2); BILIRUBIN,TOTAL 0.7 mg/dL (0.2-1.0); CALCIUM, SERUM 9.4 mg/dL (8.5-10.1); CREATININE 1.8 mg/dL (0.6-1.3); GLUCOSE 128 mg/dL (74-106); TOTAL PROTEIN, SERUM 7.4 g/dL (6.4-8.2); UREA NITROGEN, BLOOD 74 mg/dL (7-18)
[2017-05-22 13:49] LABS: TROPONIN I 0.039 ng/mL (0.00-0.056)
[2017-05-22 13:52] LABS: POTASSIUM 7.1 mmol/L (3.5-5.1)
[2017-05-22] MEDS ORDERED: SODIUM BICARBONATE SYR 50 MEQ/50 ML DISP.SYRIN ONE (13:56)
[2017-05-22] MEDS ORDERED: DEXTROSE 50%-WATER 50 ML DISP.SYRIN ONE (13:56)
[2017-05-22] MEDS ORDERED: CALCIUM CHLORIDE 1,000 MG/10 ML DISP.SYRIN ONE (13:56)
[2017-05-22] MEDS ORDERED: INSULIN REGULAR, HUMAN 100 UNIT/ML 10 ML VIAL ONE (13:56)
[2017-05-22] MEDS ORDERED: methylPREDNISolone SOD SUCC 125 MG/2ML VIAL ONE (13:59)
[2017-05-22] MEDS ORDERED: CALCIUM CHLORIDE 1,000 MG/10 ML DISP.SYRIN IV ONE (14:00)
[2017-05-22] MEDS ORDERED: ALBUTEROL FS 2.5 MG/3 ML VIAL.NEB NEB ONE (14:00)
[2017-05-22] MEDS ORDERED: DEXTROSE 50%-WATER 50 ML DISP.SYRIN IV ONE (14:00)
[2017-05-22] MEDS ORDERED: methylPREDNISolone SOD SUCC 125 MG/2ML VIAL IV ONE (14:00)
[2017-05-22] MEDS ORDERED: INSULIN REGULAR, HUMAN 100 UNIT/ML 10 ML VIAL IV ONE (14:00)
[2017-05-22] MEDS ORDERED: SODIUM BICARBONATE SYR 50 MEQ/50 ML DISP.SYRIN IV ONE (14:00)
[2017-05-22] MEDS ORDERED: MORPHINE SULFATE INJ 4 MG/ML DISP.SYRIN IV PRN (14:00)
[2017-05-22] MEDS ORDERED: IPRATROPIUM NEB FS 0.5 MG/2.5 ML AMPUL.NEB NEB ONE (14:00)
--- NOTE | 2017-05-22 14:01 | NUR ---
ANANT FROM LAB CALLED, CRITICAL LAB, LACTIC ACID 4.4. NOTIFIED
[2017-05-22] MEDS ORDERED: ALBUTEROL FS 2.5 MG/3 ML VIAL.NEB ONE (14:06)
[2017-05-22 14:36] LABS: BASOPHILS % (AUTO) 0.1 % (0.0-2.0); EOSINOPHILS % (AUTO) 0.1 % (0.0-6.0); HEMATOCRIT 26 % (39-51); HEMOGLOBIN 8.7 g/dL (13.5-17.5); LYMPHOCYTES # (AUTO) 0.6 /CMM (0.8-4.8); LYMPHOCYTES % (AUTO) 2.3 % (20.0-44.0); MEAN CORPUSCULAR HEMOGLOBIN 28 PG (26.0-33.0); MEAN CORPUSCULAR HGB CONC 34 g/dl (31.0-36.0); MEAN CORPUSCULAR VOLUME 84 fL (80-96); MONOCYTES # (AUTO) 0.4 /CMM (0.1-1.30); MONOCYTES % (AUTO) 1.6 % (2.0-12.0); NEUTROPHILS # (AUTO) 25.4 /CMM (1.8-8.9); NEUTROPHILS % (AUTO) 95.9 % (43.0-81.0); PLATELET COUNT (AUTO) 562 /CMM (150-450); RDW COEFFICIENT OF VARIATION 18.7 (11.5-15.0); WHITE BLOOD COUNT (AUTO) 26.4 K/uL (4.3-11.0)
[2017-05-22] MEDS ORDERED: NOREPINEPHRINE 8 MG in IV D5W 500 ML IV PRN (15:30)
[2017-05-22 15:31] LABS: INR 1.12 (0.87-1.13)
[2017-05-22 15:49] LABS: CALCIUM, SERUM 9.3 mg/dL (8.5-10.1); CARBON DIOXIDE 26 mmol/L (21-32); CHLORIDE 111 mmol/L (98-107); CREATININE 1.7 mg/dL (0.6-1.3); GLUCOSE 131 mg/dL (74-106); POTASSIUM 5.1 mmol/L (3.5-5.1); SODIUM SERUM 143 mmol/L (136-145); UREA NITROGEN, BLOOD 71 mg/dL (7-18)
[2017-05-22] MEDS ORDERED: ACETAMINOPHEN 650 MG/SUPP.RECT RC PRN (16:30)
[2017-05-22] MEDS ORDERED: ONDANSETRON HCL/PF 4 MG/2 ML VIAL IVP PRN (16:30)
[2017-05-22 16:57] LABS: APPEARANCE,URINE SL CLOUDY (CLEAR); BILIRUBIN,URINE NEGATIVE (NEGATIVE); BLOOD, URINE 3+ Ery/uL (NEGATIVE); COLOR,URINE DARK YELLO (YELLOW); KETONES,URINE NEGATIVE (NEGATIVE); LEUKOCYTE ESTERASE ,URINE 1+ (NEGATIVE); NITRITE, URINE NEGATIVE (NEGATIVE); PROTEIN,URINE 2+ mg/dl (NEGATIVE); UGLUCOSE NEGATIVE (NEGATIVE)
[2017-05-22] MEDS ORDERED: FEE PK DOSING 1 MIN EA MC ONE (17:06)
--- NOTE | 2017-05-22 17:10 | NUR ---
RN NOTES ADMITTED 77 Y/O FROM ER WITH DX OF SEPSIS PNA. TRANSPORTED VIA BED ACCOMPANIED BY RN AND RT. CONNECTED TO CARDIAC MONITORING FOR CLOSE MONITORING, PT HYPOTENSIVE 88/43, WILL START LEVO ORDERED. ST ON MACHINE I TRIMMER. PEG CLAMPED. BODY CHECK DONE NOTED WITH MULTIPLE SKIN ISSUES, PHOTO TAKEN AND FILED ON CHART. WOUND AND DIETARY CONSULT ORDERED. PT ON [employer] MATTRESS, GOOD SKIN CARE PROVIDED. WILL MONITOR CLOSELY
[2017-05-22 17:13] LABS: BACTERIA,URINE Moderate /HPF (None Seen); SQUAMOUS EPITHELIAL CELL,UR Few /HPF (None Seen)
[2017-05-22] MEDS ORDERED: PROPOFOL 100 ML IV PRN (17:30)
[2017-05-22] MEDS: IV D5/ 0.9% NACL 1,000 ML IV PRN (17:33)
[2017-05-22] MEDS: PIPERACILLIN /TAZOBACTAM 3.375 G in IV D5W 50 ML IV SCH (17:33)
[2017-05-22] MEDS: VANCOMYCIN 0.75 GM in IV D5W 250 ML IV SCH (18:09)
[2017-05-22] MEDS: NOREPINEPHRINE 8 MG in IV D5W 500 ML IV PRN (18:24)
--- NOTE | 2017-05-22 20:00 | NUR ---
RN NOTES IN BED RESTING COMFORTABLY WITH NO RESPIRATORY DISTRESS OR SHORTNESS OF BREATH, BREATHING EVEN AND UNLABORED. VENT SETTING WELL TOLERATED. NO PHYSICAL MANIFESTATION OF PAIN OR DISCOMFORT. OBTUNDED, NON VERBAL. VITAL SIGNS WNL. WILL CONTINUE TO MONITOR
[2017-05-22] MEDS: IPRATROPIUM NEB FS 0.5 MG/2.5 ML AMPUL.NEB NEB SCH ×2 (20:05→23:30)
[2017-05-22] MEDS: HEPARIN SODIUM, PORCINE 5000 UNITS/1 ML VIAL SQ SCH (22:00)
[2017-05-22] MEDS ORDERED: ACETAMINOPHEN 325 MG TABLET PO PRN (22:30)
[2017-05-22] MEDS ORDERED: FIBERSOURCE HN 1,000 ML BOTTLE GT SCH (22:30)
[2017-05-22] MEDS: IPRATROPIUM NEB FS 0.5 MG/2.5 ML AMPUL.NEB IH SCH (23:10)
[2017-05-22] MEDS: ALBUTEROL FS 2.5 MG/0.5 ML VIAL.NEB NEB SCH (23:30)
[2017-05-23] VITALS (59 sets, daily range): BP systolic 47–138; BP diastolic 25–87
--- NOTE | 2017-05-23 00:56 | NUR ---
RN NOTES LEVOPHED INCREASE FROM 8MCG TO 12MCG AT 20:15 FOR LOW BP 70/20 AND INCREASED AGAIN TO 14MCG FROM 12MCG FOR LOW BP OF 84/57 AT 0001.
[2017-05-23] MEDS: PIPERACILLIN /TAZOBACTAM 3.375 G in IV D5W 50 ML IV SCH ×3 (01:55→11:54)
[2017-05-23] MEDS: SUCRALFATE 1 G/10 ML UDC GT SCH ×5 (02:30→16:12)
[2017-05-23] MEDS: LORAZEPAM INJ 2 MG/ML VIAL IVP PRN ×3 (02:31→08:19)
[2017-05-23] MEDS: IV D5/ 0.9% NACL 1,000 ML IV PRN ×2 (02:32→10:14)
[2017-05-23] MEDS: IPRATROPIUM NEB FS 0.5 MG/2.5 ML AMPUL.NEB IH SCH ×2 (02:33→07:14)
[2017-05-23] MEDS: ALBUTEROL FS 2.5 MG/0.5 ML VIAL.NEB NEB SCH ×5 (02:34→19:45)
[2017-05-23] MEDS: IPRATROPIUM NEB FS 0.5 MG/2.5 ML AMPUL.NEB NEB SCH ×5 (03:30→19:45)
[2017-05-23] MEDS: NOREPINEPHRINE 8 MG in IV D5W 500 ML IV PRN (04:13)
[2017-05-23 05:24] LABS: HEMATOCRIT 34 % (39-51); HEMOGLOBIN 10.5 g/dL (13.5-17.5); LYMPHOCYTES # (AUTO) 0.8 /CMM (0.8-4.8); LYMPHOCYTES % (AUTO) 1.6 % (20.0-44.0); MEAN CORPUSCULAR HEMOGLOBIN 27 PG (26.0-33.0); MEAN CORPUSCULAR HGB CONC 31 g/dl (31.0-36.0); MEAN CORPUSCULAR VOLUME 85 fL (80-96); MONOCYTES # (AUTO) 0.7 /CMM (0.1-1.30); MONOCYTES % (AUTO) 1.4 % (2.0-12.0); NEUTROPHILS # (AUTO) 48.5 /CMM (1.8-8.9); PLATELET COUNT (AUTO) 718 /CMM (150-450); RDW COEFFICIENT OF VARIATION 20.9 (11.5-15.0); RED BLOOD CELL COUNT(AUTO) 3.96 MIL/uL (4.5-6.0)
[2017-05-23 05:41] LABS: ALANINE AMINOTRANSFERASE 77 U/L (12-78); ALKALINE PHOSPHATASE 199 U/L (46-116); ASPARTATE AMINOTRANSFERASE 91 U/L (15-37); BILIRUBIN,TOTAL 0.5 mg/dL (0.2-1.0); CALCIUM, SERUM 8.5 mg/dL (8.5-10.1); CARBON DIOXIDE 22 mmol/L (21-32); CHLORIDE 109 mmol/L (98-107); CREATININE 1.6 mg/dL (0.6-1.3); GLUCOSE 256 mg/dL (74-106); MAGNESIUM 3.5 mg/dL (1.8-2.4); PHOSPHORUS 3.8 mg/dL (2.5-4.9); POTASSIUM 5.3 mmol/L (3.5-5.1); SODIUM SERUM 141 mmol/L (136-145); TOTAL PROTEIN, SERUM 6.7 g/dL (6.4-8.2); UREA NITROGEN, BLOOD 61 mg/dL (7-18)
[2017-05-23 05:53] LABS: ALBUMIN 1.4 g/dL (3.4-5.0)
[2017-05-23 06:12] LABS: BAND % (MANUAL) 14 % (0.0-5.0); LYMPHOCYTES % (MANUAL) 2 % (16-48); MONOCYTES % (MANUAL) 2 % (0-11.0); NEUTROPHILS % (MANUAL) 82 (42-76)
--- NOTE | 2017-05-23 06:13 | NUR ---
RECEIVED PT TRACHED ON VENT ON NOTED SETTINGS. NO DISTRESS NOTED. VENT/ ALARMS WELL FUNCTIONING. Q4 TX GIVEN. NO CHANGES NOTED IN PT STATUS. Addendum: 05/23/17 at 0614 by CHELSIE MAS RT Amended: Links added.
--- NOTE | 2017-05-23 07:30 | NUR ---
RECEIVED REPORT FROM KRYS ANTON. PT TACHYCARDIC, SOB, HR 120-130'S. PT RESTLESS MOVING LEFT ARM AROUND. ALL SAFETY MEASURES IN PLACE. LEVOPHED RUNNING @ 10MCG/MIN. RT @ BEDSIDE TX WILL BE GIVEN.
[2017-05-23] MEDS ORDERED: FIBERSOURCE HN 1,000 ML BOTTLE GT PRN (08:00)
[2017-05-23] MEDS: PROPOFOL 10MG/ML 50ML 50 ML IV PRN ×5 (08:15→16:36)
[2017-05-23] MEDS: POLYVINYL ALCOHOL 15 ML BOTTLE EACHEYE SCH ×2 (08:43→12:32)
[2017-05-23] MEDS ORDERED: Z GUARD REMEDY 2 OZ OINT TP SCH ×2 (09:00)
[2017-05-23] MEDS ORDERED: PANTOPRAZOLE 40 MG VIAL IV SCH (09:00)
[2017-05-23] MEDS: CHLORHEXIDINE GLUCONATE 15 ML UDC MM SCH ×2 (09:38→16:12)
[2017-05-23] MEDS: HEPARIN SODIUM, PORCINE 5000 UNITS/1 ML VIAL SQ SCH (10:05)
[2017-05-23] MEDS ORDERED: SODIUM POLYSTYRENE SULFONATE 15 G/60 ML BOTTLE PO ONE ×2 (10:30→11:30)
[2017-05-23] MEDS: NOREPINEPHRINE 16 MG in IV D5W 500 ML IV PRN ×3 (11:36→20:08)
[2017-05-23 14:26] LABS: CALCIUM, SERUM 7.3 mg/dL (8.5-10.1); CARBON DIOXIDE 13 mmol/L (21-32); CHLORIDE 107 mmol/L (98-107); CREATININE 2.2 mg/dL (0.6-1.3); SODIUM SERUM 139 mmol/L (136-145); UREA NITROGEN, BLOOD 69 mg/dL (7-18)
[2017-05-23 14:30] LABS: GLUCOSE 515 mg/dL (74-106)
--- NOTE | 2017-05-23 14:40 | NUR ---
JEANETHK B.S. [address] LUX. WILL SEE PATIENT. AWAITING ORDER. CHARGE NURSE SHAR RN AWARE.
[2017-05-23] MEDS ORDERED: METRONIDAZOLE 500MG/ NS 100ML 500 MG in PREMIX 1 EA IV SCH (15:00)
[2017-05-23] MEDS ORDERED: IV NS 0.9% 1,000 ML IV PRN (15:00)
[2017-05-23] MEDS ORDERED: DEXTROSE 50%-WATER 50 ML DISP.SYRIN IV PRN (15:00)
[2017-05-23] MEDS: BLOOD SUGAR DIAGNOSTIC 1 EACH STRIP IN SCH ×2 (15:13→16:12)
[2017-05-23] MEDS: INSULIN REGULAR, HUMAN 100 UNIT/ML 3 ML VIAL SQ PRN ×2 (15:15→18:30)
[2017-05-23] MEDS ORDERED: GLUCERNA 1,000 ML BOTTLE NG PRN (15:30)
[2017-05-23] MEDS ORDERED: PHENYLEPHRINE 80 MG in IV D5W 250 ML IV PRN (15:30)
[2017-05-23] MEDS: IV LR 1000 ML 1,000 ML IV PRN ×2 (16:03→17:29)
[2017-05-23 16:16] LABS: IRON, SERUM 36 ug/dl (50-175); TOTAL IRON BINDING CAPACITY 144 ug/dl (250-450)
[2017-05-23] MEDS ORDERED: IV LR 1000 ML 1,000 ML IV ONE ×2 (16:30→17:40)
[2017-05-23] MEDS ORDERED: IV LR 500 ML IV ONE ×2 (16:30→17:30)
[2017-05-23 16:40] LABS: CHOLESTEROL 55 mg/dL (<200); FERRITIN 921 ng/mL (8-388); LDL 37 mg/dL (0-99); THYROID STIMULATING HORMONE 0.694 uIU/mL (0.358-3.74); TRIGLYCERIDES 378 mg/dL (30-150)
--- NOTE | 2017-05-23 16:47 | NUR ---
D/W KRISSY DENNISON AND RADHAMES SANDERS THE HYPOTENSION ON MAX. LEVOPHED, TACHYCARDIA, TACHYPNEA, BILE LEAKING AROUND PEG AND HYPERGLYCEMIA. I.D. CONSULT DONE. PT TO RECEIVE LR 2000 MLS, AND ADD NEOSYN, AGGRESSIVE SCALE OF INSULIN. RADHAMES SANDERS IS GOING TO TRY AND CONTACT FAMILY RE CRITICAL STATUS
[2017-05-23 17:10] LABS: HDL CHOLESTEROL < 10 mg/dL (40-60)
[2017-05-23] MEDS: VANCOMYCIN 0.75 GM in IV D5W 250 ML IV SCH (17:45)
[2017-05-23] MEDS ORDERED: MEROPENEM 1 G in IV NS 0.9% 100 ML IV SCH ×4 (18:00)
[2017-05-23] MEDS ORDERED: VANCOMYCIN HCL 125 MG/2.5 ML ORAL.SUSP GT SCH (18:00)
--- NOTE | 2017-05-23 18:38 | NUR ---
RT NOTE PT REMAINS MECHANICALLY VENTILATED VIA TRACH TUBE. SETTINGS PRESCRIBED. PT FIO2 INCREASED TO 100% DUE TO EPISODE OF DESATURATION. RN NOTIFIED. ALARMS SET PER PROTOCOL AND AUDIBLE. VENT PLUGGED IN TO RED OUTLET. AMBU BAG AT BED SIDE. NO DISTRESS NOTED. Addendum: 05/23/17 at 1840 by GRETCHEN LYN RT Amended: Links added.
--- NOTE | 2017-05-23 19:00 | NUR ---
D/W DR DENNISON AND RADHAMES SANDERS REFRACTORY SHOCK ON MAX DOUBLE PRESSORS WITH SBP 50. RADHAMES SANDERS WITH REPEATED ATTEMPTS TO D/W DAUGHTER-NO RESPONSE. WILL ADD DOPAMINE PER ORDER
--- NOTE | 2017-05-23 19:15 | NUR ---
CODE BLUE-SEE RECORDS.
--- NOTE | 2017-05-23 19:20 | NUR ---
D/W DR DENNISON. WILL CHECK SERUM POTASSIUM AFTER RX FOR HYPERKALEMIA DURING SUCCESSFUL CODE BLUE. MULTIPLE CALLS TO DAUGHTER ANNA WHO IS DPOA-SHE DOES NOT RESPOND. MULTIPLE D/W PT'S SISTER KATYA WHO WISHES PT TO BE A DNR HOWEVER SISTER IS NOT THE DPOA. D/W DR DENNISON-"NO CHOICE EXCEPT TO CONTINUE WITH ALL RX AND CODE BLUE INDICATED".
[2017-05-23] MEDS ORDERED: DOPamine 800 MG in IV D5W 250 ML IV PRN (19:30)
--- NOTE | 2017-05-23 19:30 | NUR ---
GYMNASTICS COACH INITIAL NOTE RECEIVED REPORT FROM ANUPAM ANTON. PT HAD A CODE BLUE AT 1912. CODE TEAM RESPONDED. SEDATED ON PROPOFOL 30MCG. TRACH SHILEY XL 6. VENT SETTINGS AC 10, TV 500, FIO2 100%, NO PEEP. LUNG SOUNDS CRACKLES/RHONCHI. BOWEL SOUNDS PRESENT, GT CONNECTED TO LIS. MARY INTACT WITH MINIMAL URINE OUTPUT. PULSES WEAK. RIGHT UPPER ARM PICC WITH THREE PRESSORS MAXED OUT, LEVO, RODOLFO, DOPAMINE. AWAITING A CALL FROM [facility] CASTILLO. WILL CONTINUE TO CLOSELY MONITOR.
--- NOTE | 2017-05-23 20:32 | NUR ---
DREDGE MECHANIC- CODE BLUE CALLED. TEAM RESPONDED. SEE ORDERS.
--- NOTE | 2017-05-23 20:42 | NUR ---
TECHNICAL INFORMATION SPECIALIST PT AFTER ALL EFFORTS EXHAUSTED DURING CODE BLUE. NO PULSE. NO BLOOD PRESSURE. ER PA PRONOUNCED PATIENT .
[2017-05-23] MEDS ORDERED: PROSOURCE / PROSTAT (PYXIS) 30 ML UDC GT SCH (21:00)
[2017-05-23] MEDS ORDERED: MULTIVITAMINS,THERAGRAN 1 UDTAB TABLET GT SCH (21:00)
[2017-05-23] MEDS ORDERED: ASCORBIC ACID 500 MG TABLET GT SCH (21:00)
[2017-05-23] MEDS ORDERED: EPINEPHRINE (1:10,000) SYRINGE 1 MG/10 ML DISP.SYRIN IVP ONE (21:38)
[2017-05-23] MEDS ORDERED: SODIUM BICARBONATE SYR 50 MEQ/50 ML DISP.SYRIN IV ONE (21:38)
[2017-05-23] MEDS ORDERED: CALCIUM CHLORIDE 1,000 MG/10 ML DISP.SYRIN IV ONE (21:38)
[2017-05-27 07:12] LABS: *SPE A/G RATIO 0.4 (0.7-1.7); *SPE ALBUMIN 1.5 g/dL (2.9-4.4); *SPE ALPHA-1-GLOBULIN 0.4 g/dL (0.0-0.4); *SPE ALPHA-2-GLOBULIN 0.9 g/dL (0.4-1.0); *SPE BETA GLOBULIN 0.8 g/dL (0.7-1.3); *SPE GLOBULIN, TOTAL 3.5 g/dL (2.2-3.9); *SPE M-SPIKE Not Observed g/dL (Not Observed); *SPEGAMMA GLOBULIN 1.4 g/dL (0.4-1.8)
== END 2017-05-23 21:39 | disposition expired | DRG 208 ==
LOC: ER 12:32 → ICU 16:42
PROVIDERS: ADMIT Nurse Practitioner Acute Care; ATTEND Nurse Practitioner Acute Care
PROC: 5A1945Z Respiratory Ventilation, 24-96 Consecutive Hours (ICD-10-PCS; principal; 2017-05-22)
PROC: 02HV33Z Insertion of Infusion Device into Superior Vena Cava, Percutaneous Approach (ICD-10-PCS; 2017-05-22)
PROC: B548ZZA Ultrasonography of Superior Vena Cava, Guidance (ICD-10-PCS; 2017-05-22)
PROC: 5A2204Z Restoration of Cardiac Rhythm, Single (ICD-10-PCS; 2017-05-23)
DX: J95.851 Ventilator associated pneumonia (principal); N17.0 Acute kidney failure with tubular necrosis; R65.21 Severe sepsis with septic shock; Z99.11 Dependence on respirator [ventilator] status; A41.9 Sepsis, unspecified organism; G93.40 Encephalopathy, unspecified; J15.6 Pneumonia due to other Gram-negative bacteria; J96.11 Chronic respiratory failure with hypoxia; R53.2 Functional quadriplegia; J15.9 Unspecified bacterial pneumonia; D68.59 Other primary thrombophilia; N39.0 Urinary tract infection, site not specified; E87.2 Acidosis; Z93.0 Tracheostomy status; Z93.1 Gastrostomy status; Z87.19 Personal history of other diseases of the digestive system; Z87.01 Personal history of pneumonia (recurrent); Z86.73 Personal history of transient ischemic attack (TIA), and cerebral infarction without residual deficits; Z79.899 Other long term (current) drug therapy; Z79.82 Long term (current) use of aspirin; K21.9 Gastro-esophageal reflux disease without esophagitis; I11.0 Hypertensive heart disease with heart failure; I50.9 Heart failure, unspecified; B96.89 Other specified bacterial agents as the cause of diseases classified elsewhere; Y84.9 Medical procedure, unspecified as the cause of abnormal reaction of the patient, or of later complication, without mention of misadventure at the time of the procedure; Y82.9 Unspecified medical devices associated with adverse incidents; Y92.89 Other specified places as the place of occurrence of the external cause; D47.3 Essential (hemorrhagic) thrombocythemia; B35.1 Tinea unguium; D63.8 Anemia in other chronic diseases classified elsewhere; E86.0 Dehydration; E87.5 Hyperkalemia
CPT/HCPCS: 31720; 36415; 36600; 71045-TC; 80048-TC; 80053-TC; 80061-TC; 80076-TC; 81000-TC; 82533; 82728-TC; 82803-TC; 82962-TC; 83540-TC; 83605-TC; 83735-TC; 83880; 84100-TC; 84132-TC; 84155; 84165; 84439-TC; 84443-TC; 84484-TC; 85025-TC; 85378-TC; 85730-TC; 87040-TC; 87086-TC; 93307-TC; 94002-TC; 94003-TC; 94762-TC; A4216; A4606; C9113; J0171; J1265; J1644; J1815; J2060; J2185; J2270; J2370; J2543; J2930; J3370; J3475; J3490; J7030; J7040; J7042; J7060; J7120; Z7610